=== PATIENT | female | born 1955 | race Caucasian/White ===

== ENCOUNTER 2017-02-08 14:17 | Outpatient (CLI) | payer MEDICARE, OTHER, SELFPAY ==
[2017-02-08 15:22] LABS: PHA INR Fingerstick 1.4 (0.9-1.1)
== END 2017-02-08 15:25 | disposition home or self-care (01) ==
LOC: ACC 14:21
PROVIDERS: PCP Internal Medicine Adolescent Medicine; Visit Provider Internal Medicine Adolescent Medicine
DX: Z79.01 Long term (current) use of anticoagulants (principal); Z51.81 Encounter for therapeutic drug level monitoring
CPT/HCPCS: 85610

== ENCOUNTER 2017-02-17 15:03 | Outpatient (CLI) | payer MEDICARE, OTHER, SELFPAY ==
[2017-02-17 16:13] LABS: PHA INR Fingerstick 2.5 (0.9-1.1)
== END 2017-02-17 16:31 | disposition home or self-care (01) ==
LOC: ACC 15:05
PROVIDERS: PCP Internal Medicine Adolescent Medicine; Visit Provider Internal Medicine Adolescent Medicine
DX: Z79.01 Long term (current) use of anticoagulants (principal); Z51.81 Encounter for therapeutic drug level monitoring
CPT/HCPCS: 85610

== ENCOUNTER 2017-02-28 14:44 | Outpatient (CLI) | payer MEDICARE, OTHER, SELFPAY ==
[2017-02-28 15:25] LABS: PHA INR Fingerstick 2.2 (0.9-1.1)
== END 2017-02-28 15:30 | disposition home or self-care (01) ==
PROVIDERS: Family Provider Internal Medicine Adolescent Medicine; PCP Internal Medicine Adolescent Medicine; Visit Provider Internal Medicine Adolescent Medicine
DX: Z79.01 Long term (current) use of anticoagulants (principal); Z51.81 Encounter for therapeutic drug level monitoring
CPT/HCPCS: 85610

== ENCOUNTER 2017-03-29 10:59 | Outpatient (CLI) | payer MEDICARE, OTHER, SELFPAY ==
[2017-03-29 13:01] LABS: PHA INR Fingerstick 2.4 (0.9-1.1)
== END 2017-03-29 13:25 | disposition home or self-care (01) ==
LOC: ACC 11:00
PROVIDERS: Family Provider Internal Medicine Adolescent Medicine; PCP Internal Medicine Adolescent Medicine; Visit Provider Internal Medicine Adolescent Medicine
DX: Z79.01 Long term (current) use of anticoagulants (principal); Z51.81 Encounter for therapeutic drug level monitoring; Z86.711 Personal history of pulmonary embolism
CPT/HCPCS: 85610; 99211; G0463

== ENCOUNTER → 2017-04-12 15:59 | Outpatient (CLI) | payer MEDICARE, OTHER, SELFPAY ==
[2017-04-12 16:48] LABS: Alanine Aminotransferase 29 U/L (12-78); Albumin Level 3.6 gm/dL (3.4-5.0); Albumin/Globulin Ratio 0.9 (1.1-1.8); Alkaline Phosphatase 103 U/L (46-116); Anion Gap 9.1 mEq/L (5-15); Aspartate Amino Transferase 13 U/L (15-37); Bilirubin,Total 0.2 mg/dL (0.2-1.0); Blood Urea Nitrogen 16 mg/dL (7-18); C-Reactive Protein 0.4 mg/L (0.0-0.9); Calcium 8.7 mg/dL (8.5-10.1); Carbon Dioxide 29 mmol/L (21.0-32.0); Chloride 103 mmol/L (98-107); Creatinine,Serum 0.93 mg/dL (0.55-1.02); Estimated Glomerular Filt Rate 61 ml/min (>60); GFR (African American) 74 ML/MIN (>60); Globulin 3.8 gm/dl (1.3-3.2); Glucose 105 mg/dL (74-106); Potassium 4.1 mmoL/L (3.5-5.1); Sodium 137 mmol/L (136-145); Thyroid Stimulating Hormone 1.57 uIU/ml (0.358-3.740); Total Protein,Serum 7.4 gm/dL (6.4-8.2)
[2017-04-12 17:15] LABS: Erythrocyte Sedimentation Rate 61 mm/hr (0-30)
[2017-04-16 18:35] LABS: RA Latex Turbid. <10.0 IU/mL (0.0-13.9)
[2017-04-19 06:05] LABS: Antinuclear Antibodies, IFA Negative (.)
[2017-04-19 06:06] LABS: Anti-Cyclic Citrullinated Pept 4 units (0-19)
== END ==
PROVIDERS: PCP Internal Medicine Adolescent Medicine; Visit Provider Nurse Practitioner Family
DX: Z00.00 Encounter for general adult medical examination without abnormal findings (principal); M12.9 Arthropathy, unspecified; R70.0 Elevated erythrocyte sedimentation rate; Z79.899 Other long term (current) drug therapy
CPT/HCPCS: 36415; 80053; 84443; 85651; 86038; 86140; 86200; 86431

== ENCOUNTER → 2017-04-19 14:08 | Outpatient (CLI) | payer MEDICARE, OTHER, SELFPAY ==
--- NOTE | 2017-04-19 14:13 | XR_ITS ---
XR wrist LT min 3V HISTORY: ITS.REASON: ARTHRITIS ORDERING PHYSICIAN: Sherif Ridley MD PATIENT AGE: 61 years COMPARISON: None FINDINGS: No fracture or dislocation. No lytic or blastic change. There is normal mineralization.. There is mild osteoarthritic change of the radiocarpal joint with slight decrease in the joint space and minimal osteophyte formation at the radial styloid process. Minimal osteoarthritic changes are also present at the scaphotrapezium joint. No erosive process. No soft tissue calcification. 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
--- NOTE | 2017-04-19 14:13 | XR_ITS ---
XR wrist RT min 3V HISTORY: ITS.REASON: ARTHRITIS ORDERING PHYSICIAN: Sherif Ridley MD PATIENT AGE: 61 years COMPARISON: None FINDINGS: No fracture or dislocation. No lytic or blastic change. There is normal mineralization.. The joint spaces are well-preserved. No significant degenerative/arthritic changes. No erosive changes evident.. IMPRESSION: Negative right wrist
--- NOTE | 2017-04-19 14:13 | XR_ITS ---
XR hand LT min 3V HISTORY: Left hand pain ITS.REASON: ARTHRITIS ORDERING PHYSICIAN: Sherif Ridley MD PATIENT AGE: 61 years COMPARISON: None FINDINGS: No fracture or dislocation. No lytic or blastic change. There is normal mineralization.. The joint spaces are well-preserved. Minimal osteoarthritic changes are present at the first interphalangeal joint as well as the DIP of the second and third digits. No erosive process and no abnormal soft tissue calcification. IMPRESSION: Minimal osteoarthritic change
--- NOTE | 2017-04-19 14:13 | XR_ITS ---
XR hand RT min 3V HISTORY: ITS.REASON: ARTHRITIS ORDERING PHYSICIAN: Sherif Ridley MD PATIENT AGE: 61 years COMPARISON: None FINDINGS: No fracture or dislocation. No lytic or blastic change. There is normal mineralization.. The joint spaces are well-preserved. Minimal osteoarthritic changes present at the first interphalangeal joint and the second and third DIP. No erosive process. Small periarticular calcification is present laterally at the PIP joint and medially at the DIP joint of the second digit. These could be related to old avulsion injuries. IMPRESSION: Minimal osteoarthritic change as described above
== END ==
PROVIDERS: PCP Internal Medicine Adolescent Medicine; Visit Provider Internal Medicine Adolescent Medicine
DX: M79.641 Pain in right hand (principal); M79.642 Pain in left hand; M25.532 Pain in left wrist; M25.531 Pain in right wrist
CPT/HCPCS: 73110; 73130

== ENCOUNTER 2017-04-25 14:32 | Outpatient (CLI) | payer MEDICARE, OTHER, SELFPAY ==
[2017-04-25 15:32] LABS: PHA INR Fingerstick 2.7 (0.9-1.1)
== END 2017-04-25 15:33 | disposition home or self-care (01) ==
LOC: ACC 14:33
PROVIDERS: PCP Internal Medicine Adolescent Medicine; Visit Provider Internal Medicine Adolescent Medicine
DX: Z79.01 Long term (current) use of anticoagulants (principal); Z51.81 Encounter for therapeutic drug level monitoring; Z86.711 Personal history of pulmonary embolism
CPT/HCPCS: 85610; 99211; G0463

== ENCOUNTER → 2017-08-29 08:48 | Outpatient (CLI) | payer MEDICARE, OTHER, SELFPAY ==
--- NOTE | 2017-08-29 08:49 | MM_ITS ---
MM Dig screening mamm BI w/CAD CAD Screening COMPARISON: Digital mammograms with CAD 10/07/2016 and post fine-needle aspiration left breast 11/16/2016 INDICATION: There is a history of breast cancer patient's aunt after menopause and cousin before menopause. There is been a previous mammotome biopsy left breast TECHNIQUE: Standard CC and MLO images were obtained. R2 CAD reviewed. FINDINGS: Moderate scattered fibroglandular densities are seen in the central portions of both breast. There is scattered arterial calcification in each breast. There are few benign-appearing calcifications BI-RADS each breast as well. There is no suspicious lesion and no suspicious microcalcifications. IMPRESSION: Fibrofatty parenchyma with no suspicious lesion seen BI-RADS Category: 2 Benign Finding(s) RECOMMENDED FOLLOW-UP: 1YR - 1 YEAR FOLLOW-UP (A letter has been sent to the patient regarding results of the study.)
--- NOTE | 2017-08-29 08:49 | XR_ITS ---
DEXA SCAN.-BONE DENSITY STUDY HIPS AND WRIST SAMPLING HISTORY: Postmenopausal female low calcium intake. Current smoker. . 61-year-old Fracture toe age 51 TECHNIQUE: DEXA scan HIPS AND WRIST SAMPLING The most complete data summary and color graphic presentation of the today's ( and any prior ) DEXA findings are available in PACS. Definition and treatment guidelines included. COMPARISON: June 2016 ====== Right WRIST. RadiusUD distal metaphysis: BMD 0.432 w/ Tscore = -0.8.; Age-matched Z score = 0.2 Distal 33% of radius: BMD 0.878 w/ Tscore= -0.1; Age-matched Z score = 0.9 Radius total: BMD 0.667. T score = -0.3.... Age-matched Z score = 0.7 2017 prior DEXA distal 3% radius BMD 0.858 w/ Tscore= -0.3.; Age-matched ; Z score = 0.5 Thus when comparing today's study to the prior exam there's been a 2.3% increase increasing mean bone density at the lumbar spine. ====== BILATERAL HIPS: Femoral neck density is best predictor of hip fracture risk . Right femoral neck demonstrates the lowest T score = 0.8 with BMD1.153 g/cm sq . Left femoral neck T score = 0.1; with BMD 1.045 Averaging all region included yields today's overall Hip Mean T score = 0.3 with BMD1.041 g/cm sq . 2017 DEXA overall hip T score -0.5 with BMD1.065 g/cm sq sq Thus this reflects a 2.3% decrease in overall mean bone density at the hips in the interval. IMPRESSION...... 1. HIPS: Normal bone density overall as well as at femoral necks bilaterally. 2. Wrist. Normal bone density at Distal third of the radius where T score -0.1 with BMD 0.878 With this reflects a 2.3% increase since previous 2017 study, compared to the same region. WHO criteria for post-menopausal, Women: Normal: T-score at or above -1 SD Osteopenia: T-score between -1 and -2.5 SD Osteoporosis: T-score at or below -2.5 SD
== END ==
PROVIDERS: Family Provider Internal Medicine Adolescent Medicine; PCP Internal Medicine Adolescent Medicine; Visit Provider Obstetrics & Gynecology
DX: Z12.31 Encounter for screening mammogram for malignant neoplasm of breast (principal); Z78.0 Asymptomatic menopausal state
CPT/HCPCS: 77067; 77080

== ENCOUNTER 2017-09-15 13:44 | Outpatient (CLI) | payer MEDICARE, OTHER, SELFPAY ==
[2017-09-15 15:27] LABS: PHA INR Fingerstick 3.2 (0.9-1.1)
== END 2017-09-15 15:33 | disposition home or self-care (01) ==
LOC: ACC 13:45
PROVIDERS: PCP Internal Medicine Adolescent Medicine; Visit Provider Internal Medicine Adolescent Medicine
DX: Z79.01 Long term (current) use of anticoagulants (principal); Z51.81 Encounter for therapeutic drug level monitoring; Z86.718 Personal history of other venous thrombosis and embolism
CPT/HCPCS: 85610; 99211; G0463

== ENCOUNTER → 2017-10-06 12:56 | Outpatient (CLI) | payer MEDICARE, OTHER, SELFPAY ==
[2017-10-06 13:44] LABS: INR 3.71 (0.9-1.1); Prothrombin Time 36.8 seconds (9.4-11.8)
[2017-10-06 14:09] LABS: Basophils % 0.5 % (0.1-2.0); Eosinophils # 0.3 K/mm3 (0.0-0.4); Eosinophils % 4.2 % (0.1-12.0); Hematocrit 38.3 % (37.0-47.0); Hemoglobin 12.3 g/dL (12.2-16.2); Lymphocytes % 27.4 K/mm3 (10-50); Mean Corpuscular HGB Conc 32.2 g/dL (31.8-35.4); Mean Corpuscular Hemoglobin 31.7 pg (27.0-31.2); Mean Corpuscular Volume 98.4 fl (81-99); Mean Platelet Volume 7.5 fl (7.4-10.4); Monocytes # 0.4 K/mm3 (0.1-1.0); Monocytes % 5.5 % (1.7-9.3); Neutrophils # 4.5 K/mm3 (1.8-7.8); Neutrophils % 62.3 % (37.0-80.0); Platelet Count 234 K/mm3 (142-424); Red Blood Count 3.89 M/mm3 (4.20-5.40); Red Cell Distribution Width 14.2 % (11.5-17.5); White Blood Count 7.2 K/mm3 (4.8-10.8)
[2017-10-06 14:19] LABS: Alanine Aminotransferase 30 U/L (12-78); Albumin Level 3.8 gm/dL (3.4-5.0); Albumin/Globulin Ratio 1.1 (1.1-1.8); Alkaline Phosphatase 105 U/L (46-116); Anion Gap 11.9 mEq/L (5-15); Aspartate Amino Transferase 16 U/L (15-37); Bilirubin,Total 0.3 mg/dL (0.2-1.0); Blood Urea Nitrogen 12 mg/dL (7-18); Calcium 8.8 mg/dL (8.5-10.1); Carbon Dioxide 29 mmol/L (21.0-32.0); Chloride 105 mmol/L (98-107); Chol/HDL Ratio 2.9 (1-3.5); Cholesterol 140 mg/dL (140-200); Creatinine,Serum 0.85 mg/dL (0.55-1.02); Estimated Glomerular Filt Rate 68 ml/min (>60); GFR (African American) 82 ML/MIN (>60); Globulin 3.6 gm/dl (1.3-3.2); Glucose 106 mg/dL (74-106); HDL Cholesterol 49 mg/dL (29-89); LDL Cholesterol 73 mg/dL (0-130); Potassium 3.9 mmoL/L (3.5-5.1); Sodium 142 mmol/L (136-145); Total Protein,Serum 7.4 gm/dL (6.4-8.2); Triglycerides 90 mg/dL (30-200); VLDL Cholesterol 18 mg/dL (0-40)
== END ==
PROVIDERS: PCP Internal Medicine Adolescent Medicine; Visit Provider Internal Medicine Adolescent Medicine
DX: Z79.01 Long term (current) use of anticoagulants (principal); Z86.711 Personal history of pulmonary embolism; E78.5 Hyperlipidemia, unspecified; M12.9 Arthropathy, unspecified; I10 Essential (primary) hypertension
CPT/HCPCS: 36415; 80053; 80061; 85025; 85610

== ENCOUNTER → 2017-10-19 15:16 | Outpatient (CLI) | payer MEDICARE, OTHER, SELFPAY ==
[2017-10-19 15:38] LABS: Prothrombin Time 26.1 seconds (9.4-11.8)
[2017-10-19 18:58] LABS: Thyroid Stimulating Hormone 1.17 uIU/ml (0.358-3.740)
[2017-10-24 05:18] LABS: Vitamin B12 518 pg/mL (232-1245); Vitamin D 25 Hydroxy 32.5 ng/mL (30.0-100.0)
== END ==
PROVIDERS: PCP Internal Medicine Adolescent Medicine; Visit Provider Nurse Practitioner Family
DX: Z51.81 Encounter for therapeutic drug level monitoring (principal); Z79.01 Long term (current) use of anticoagulants; Z86.718 Personal history of other venous thrombosis and embolism; R53.83 Other fatigue
CPT/HCPCS: 36415; 82607; 82652; 84443; 85610

== ENCOUNTER 2017-11-10 10:08 | Outpatient (CLI) | payer MEDICARE, OTHER, SELFPAY ==
[2017-11-10 14:53] LABS: PHA INR Fingerstick 2.7 (0.9-1.1)
== END 2017-11-10 14:55 | disposition home or self-care (01) ==
LOC: ACC 10:09
PROVIDERS: PCP Internal Medicine Adolescent Medicine; Visit Provider Internal Medicine Adolescent Medicine
DX: Z51.81 Encounter for therapeutic drug level monitoring (principal); Z79.01 Long term (current) use of anticoagulants; Z86.718 Personal history of other venous thrombosis and embolism
CPT/HCPCS: 85610; 99211; G0463

== ENCOUNTER 2017-12-09 09:56 | Outpatient (CLI) | payer MEDICARE, OTHER, SELFPAY ==
[2017-12-09 15:50] LABS: PHA INR Fingerstick 2.6 (0.9-1.1)
== END 2017-12-09 15:52 | disposition home or self-care (01) ==
LOC: ACC 09:57
PROVIDERS: PCP Internal Medicine Adolescent Medicine; Visit Provider Internal Medicine Adolescent Medicine
DX: Z51.81 Encounter for therapeutic drug level monitoring (principal); Z79.01 Long term (current) use of anticoagulants; Z86.718 Personal history of other venous thrombosis and embolism
CPT/HCPCS: 85610; 99211; G0463

== ENCOUNTER 2018-02-22 14:00 | Outpatient (CLI) | payer MEDICARE, OTHER, SELFPAY ==
[2018-02-22 15:25] LABS: PHA INR Fingerstick 3.1 (0.9-1.1)
== END 2018-02-22 15:27 | disposition home or self-care (01) ==
PROVIDERS: PCP Internal Medicine Adolescent Medicine; Visit Provider Internal Medicine Adolescent Medicine
DX: Z51.81 Encounter for therapeutic drug level monitoring (principal); Z79.01 Long term (current) use of anticoagulants
CPT/HCPCS: 85610; 99211; G0463

== ENCOUNTER → 2018-04-06 10:54 | Outpatient (CLI) | payer MEDICARE, OTHER, SELFPAY ==
[2018-04-06 11:12] LABS: Basophils % 0.4 % (0.1-2.0); Eosinophils # 0.2 K/mm3 (0.0-0.4); Eosinophils % 3.2 % (0.1-12.0); Hematocrit 40.4 % (37.0-47.0); Hemoglobin 12.9 g/dL (12.2-16.2); Lymphocytes # 1.3 K/mm3 (0.7-4.5); Lymphocytes % 20.5 % (10-50); Mean Corpuscular HGB Conc 31.9 g/dL (31.8-35.4); Mean Corpuscular Hemoglobin 31.4 pg (27.0-31.2); Mean Corpuscular Volume 98.4 fl (81-99); Mean Platelet Volume 8.6 fl (7.4-10.4); Monocytes # 0.3 K/mm3 (0.1-1.0); Monocytes % 4.9 % (1.7-9.3); Neutrophils # 4.5 K/mm3 (1.8-7.8); Platelet Count 193 K/mm3 (142-424); Red Blood Count 4.11 M/mm3 (4.20-5.40); Red Cell Distribution Width 15.6 % (11.5-17.5); White Blood Count 6.3 K/mm3 (4.8-10.8)
[2018-04-06 11:21] LABS: INR 4.93 (0.9-1.1); Prothrombin Time 48.5 seconds (9.4-11.8)
[2018-04-06 12:22] LABS: Alanine Aminotransferase 33 U/L (12-78); Albumin Level 3.5 gm/dL (3.4-5.0); Albumin/Globulin Ratio 0.9 (1.1-1.8); Alkaline Phosphatase 103 U/L (46-116); Anion Gap 17.8 mEq/L (5-15); Aspartate Amino Transferase 20 U/L (15-37); Bilirubin,Total 0.4 mg/dL (0.2-1.0); Blood Urea Nitrogen 17 mg/dL (7-18); Calcium 8.7 mg/dL (8.5-10.1); Carbon Dioxide 24 mmol/L (21.0-32.0); Chloride 103 mmol/L (98-107); Cholesterol 122 mg/dL (140-200); Estimated Glomerular Filt Rate 56 ml/min (>60); GFR (African American) 68 ML/MIN (>60); Globulin 3.9 gm/dl (1.3-3.2); Glucose 135 mg/dL (74-106); HDL Cholesterol 41 mg/dL (29-89); LDL Cholesterol 69 mg/dL (0-130); Potassium 3.8 mmoL/L (3.5-5.1); Sodium 141 mmol/L (136-145); Total Protein,Serum 7.4 gm/dL (6.4-8.2); Triglycerides 60 mg/dL (30-200); VLDL Cholesterol 12 mg/dL (0-40)
[2018-04-07 12:36] LABS: Vitamin D 25 Hydroxy 40.1 ng/mL (30.0-100.0)
== END ==
PROVIDERS: Visit Provider Nurse Practitioner Family
DX: Z00.00 Encounter for general adult medical examination without abnormal findings (principal); I10 Essential (primary) hypertension; E78.5 Hyperlipidemia, unspecified; E55.9 Vitamin D deficiency, unspecified; Z51.81 Encounter for therapeutic drug level monitoring; Z79.01 Long term (current) use of anticoagulants; Z86.718 Personal history of other venous thrombosis and embolism
CPT/HCPCS: 36415; 80053; 80061; 82652; 85025; 85610

== ENCOUNTER 2018-04-10 09:07 | Outpatient (CLI) | payer MEDICARE, OTHER, SELFPAY ==
[2018-04-10 11:35] LABS: PHA INR Fingerstick 1.8 (0.9-1.1)
== END 2018-04-10 11:44 | disposition home or self-care (01) ==
LOC: ACC 09:08
PROVIDERS: PCP Internal Medicine Adolescent Medicine; Visit Provider Internal Medicine Adolescent Medicine
DX: Z51.81 Encounter for therapeutic drug level monitoring (principal); Z79.01 Long term (current) use of anticoagulants; Z86.718 Personal history of other venous thrombosis and embolism
CPT/HCPCS: 85610; 99211; G0463

== ENCOUNTER 2018-04-17 09:03 | Outpatient (CLI) | payer MEDICARE, OTHER, SELFPAY ==
[2018-04-17 16:04] LABS: PHA INR Fingerstick 2.7 (0.9-1.1)
== END 2018-04-17 16:06 | disposition home or self-care (01) ==
LOC: ACC 09:04
PROVIDERS: PCP Internal Medicine Adolescent Medicine; Visit Provider Internal Medicine Adolescent Medicine
DX: Z51.81 Encounter for therapeutic drug level monitoring (principal); Z79.01 Long term (current) use of anticoagulants
CPT/HCPCS: 85610; 99211; G0463

== ENCOUNTER 2018-06-01 10:37 | Outpatient (CLI) | payer MEDICARE, OTHER, SELFPAY | END 2018-06-01 13:39 | disposition home or self-care (01) | LOC: ACC 10:38 | PROVIDERS: PCP Internal Medicine Adolescent Medicine; Visit Provider Internal Medicine Adolescent Medicine | DX: Z51.81 Encounter for therapeutic drug level monitoring (principal); Z79.01 Long term (current) use of anticoagulants; Z86.718 Personal history of other venous thrombosis and embolism | CPT/HCPCS: 85610; 99211; G0463 ==

== ENCOUNTER → 2018-06-15 10:54 | Outpatient (CLI) | payer MEDICARE, OTHER, SELFPAY ==
--- NOTE | 2018-06-15 10:56 | CA_ITS ---
PROCEDURE: 2-D M-mode and color Doppler study INDICATIONS FOR THE TEST: Chest pain X COPDX Heart Murmur Tobacco Smoking Palpitations FatigueX Syncope Edema Hypertension Diabetes Mellitus Rheumatic Fever SOBXDOE ObesityXHyperlipidemia Family History HD Additional History ABN EKG PATIENT INFORMATION HEIGHT: 64 WEIGHT:191 GENDER: Female B/P:146/87 2-D/M-MODE INTERPRETATION: 2-D MEASUREMENTS OBSERVED VALUES IN CMS Right Ventricular Dimension (RVDd) 2.2 Interventricular Septum (Thickness)(IVsd) 1.0 Left Ventricular Internal Dimensions(LVIDd) 5.4 Left Ventricular Posterior Wall (Thickness)(LVPWd) 1.0 Aortic Root 2.8 Aortic Cusp Separation 1.6 Left Atrial Dimensions (LAD) 3.9 2D 1. Left atrium is mildly enlarged, left ventricle is normal size, visually estimated ejection fraction of 55% with no regional wall motion abnormality. 2. The right atrium and right ventricle are normal size and contractility. 3. The aortic valve is minimally thickened and fibrosed. 4. The mitral and tricuspid valve leaflets are minimally thickened. 5. The pulmonic valve is poorly present. 6. No significant pericardial effusion noted. DOPPLER INTERROGATION: Doppler interrogation of the aortic, mitral and tricuspid valve reveals presence of mild mitral and tricuspid regurgitation, tricuspid regurgitation jet velocity is inadequate for calculation of the right ventricular systolic pressure, grade 1 diastolic dysfunction seen with tissue Doppler evidence of raised left atrial pressure. CONCLUSION: 1. Mildly enlarged left atrium, normal left ventricular size, visually estimated ejection fraction 55% with no regional wall motion abnormality, grade 1 diastolic dysfunction seen with tissue Doppler evidence of raised left atrial pressure. 2. Mild mitral and tricuspid regurgitation 3. No significant pericardial effusion noted.
--- NOTE | 2018-06-15 12:35 | NM_ITS ---
CARDIOLITE [facility]ESS: History: Chest pain, shortness of breath, fatigue,, family history. Procedure: Patient exercised on Adrian protocol 6 minutes and 40 seconds, resting heart rate was 70 beats prominent resting blood pressure is 150/85, with exercise maximum heart rate achieved was 1 30 bpm reportedly 82% of the maximum predicted heart rate and blood pressure was 210/84. Test was stopped due to shortness of breath and fatigue. Patient has adequate exercise capacity achieved 7mets of workload on treadmill, the blood pressure response to exercise was hypertensive. Patient did not achieve the target heart rate. Electrocardiogram: Resting electrocardiogram showed sinus rhythm, with exercise there is less than 1.[address] segment depression noted from the baseline EKG, occasional premature ventricular complexes were also seen. The EKG portion of the exercise Myoview is nondiagnostic as patient did not achieve the target heart rate. Cardiac stress and resting SPECT images: Cardiac stress and resting SPECT images were obtained using technetium 99 Myoview 31.6 mCi at stress and 10.2 mCi at rest. Gated SPECT further analysis of segmental wall motion and calculation of the ejection fraction also done. Cardiac stress and rest SPECT images show uniform myocardial activity without segmental perfusion abnormality, computer derived ejection fraction is over 65% with no regional wall motion abnormality. Right ventricle is normal size and contractility. Conclusion: 1. The EKG portion of the exercise Myoview is nondiagnostic as patient did not achieve the target heart rate, patient has adequate exercise capacity achieved 7mets of workload on treadmill, the blood pressure response to exercise was hypertensive, test was stopped due to shortness of breath. 2. No scintigraphic evidence of reversible ischemia seen at this level of exercise, either derived ejection fraction is over 65% with no regional wall motion abnormality, right ventricle is normal size and contractility.
--- NOTE | 2018-06-15 14:17 | HMH.ITSHM ---
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 [] cymbalta warfarin singulair prilosec tramadol asa simbicort
== END ==
PROVIDERS: PCP Internal Medicine Adolescent Medicine; Visit Provider Nurse Practitioner Family
DX: I25.10 Atherosclerotic heart disease of native coronary artery without angina pectoris (principal); R06.02 Shortness of breath; R07.9 Chest pain, unspecified; R53.83 Other fatigue; R94.31 Abnormal electrocardiogram [ECG] [EKG]
CPT/HCPCS: 78452; 93017; 93306; A9502

== ENCOUNTER → 2018-07-06 11:29 | Outpatient (CLI) | payer MEDICARE, OTHER, SELFPAY ==
[2018-07-06 13:08] LABS: PHA INR Fingerstick 2.6 (0.9-1.1)
== END ==
PROVIDERS: PCP Internal Medicine Adolescent Medicine; Visit Provider Internal Medicine Adolescent Medicine
DX: Z79.01 Long term (current) use of anticoagulants (principal); Z51.81 Encounter for therapeutic drug level monitoring; Z86.711 Personal history of pulmonary embolism
CPT/HCPCS: 85610

== ENCOUNTER → 2018-07-25 11:03 | Outpatient (POV) | payer MEDICARE, OTHER, SELFPAY | PROVIDERS: Visit Provider Dermatology | DX: Z00.00 Encounter for general adult medical examination without abnormal findings (principal) ==

== ENCOUNTER 2018-08-16 11:42 | Outpatient (CLI) | payer MEDICARE, OTHER, SELFPAY | END 2018-08-16 15:33 | disposition home or self-care (01) | LOC: ACC 11:43 | PROVIDERS: PCP Internal Medicine Adolescent Medicine; Visit Provider Internal Medicine Adolescent Medicine | DX: Z51.81 Encounter for therapeutic drug level monitoring (principal); Z79.01 Long term (current) use of anticoagulants; Z86.711 Personal history of pulmonary embolism | CPT/HCPCS: 85610; 99211; G0463 ==

== ENCOUNTER 2018-10-03 10:39 | Outpatient (CLI) | payer MEDICARE, OTHER, SELFPAY ==
[2018-10-03 11:33] LABS: PHA INR Fingerstick 2.8 (0.9-1.1)
== END 2018-10-03 11:38 | disposition home or self-care (01) ==
LOC: ACC 10:40
PROVIDERS: PCP Internal Medicine Adolescent Medicine; Visit Provider Internal Medicine Adolescent Medicine
DX: Z51.81 Encounter for therapeutic drug level monitoring (principal); Z79.01 Long term (current) use of anticoagulants; Z86.711 Personal history of pulmonary embolism
CPT/HCPCS: 85610; 99211; G0463

== ENCOUNTER 2018-10-16 13:24 | Outpatient (CLI) | payer MEDICARE, OTHER, SELFPAY ==
[2018-10-16 14:58] LABS: PHA INR Fingerstick 1.7 (0.9-1.1)
== END 2018-10-16 15:01 | disposition home or self-care (01) ==
LOC: ACC 13:25
PROVIDERS: PCP Internal Medicine Adolescent Medicine; Visit Provider Internal Medicine Adolescent Medicine
DX: Z51.81 Encounter for therapeutic drug level monitoring (principal); Z79.01 Long term (current) use of anticoagulants
CPT/HCPCS: 85610; 99211; G0463

== ENCOUNTER → 2018-10-27 07:40 | Outpatient (CLI) | payer MEDICARE, OTHER, SELFPAY ==
--- NOTE | 2018-10-27 07:44 | US_ITS ---
PROCEDURE: US ABDOMEN COMPLETE CLINICAL INDICATION: ABD PAIN COMPARISON: No exams were available for comparison FINDINGS: PANCREAS: Unremarkable. No obvious mass or abnormal fluid collection. Probable mild diffuse fatty infiltration. No ductal dilatation LIVER: The liver is normal in size and shows overall increased in somewhat coarsened appearing echogenicity consistent with diffuse fatty infiltration. There are no focal lesions. RIGHT KIDNEY: The right kidney measures 10.3 x 5.3 by 6.7 cm and appears sonographically normal. The left kidney measures 9.9 x 5.6 by 5.2 cm and appears sonographically normal. GALLBLADDER: Post cholecystectomy. The common bile duct measures 0.8 cm, borderline prominent but probably within normal limits considering previous cholecystectomy. There is no intrahepatic biliary ductal dilatation. AORTA: No evidence of aneurysmal dilatation. There is mild diffuse arteriosclerotic irregularity of the visualized portion of the aorta at the level of the xiphoid. SPLEEN: Unremarkable. Normal size and echogenicity ASCITES: None demonstrated. IMPRESSION: Mild to moderate diffuse hepatic steatosis, no other significant abnormality noted Dictated by: Dr. Carlos Bertrand MD 10/27/2018 10:[address] Carlos Bertrand MD in [place] 10/27/2018 10:50
== END ==
PROVIDERS: PCP Internal Medicine Adolescent Medicine; Visit Provider Nurse Practitioner Family
DX: R10.11 Right upper quadrant pain (principal)
CPT/HCPCS: 76700

== ENCOUNTER → 2018-11-08 12:59 | Outpatient (CLI) | payer MEDICARE, OTHER, SELFPAY ==
[2018-11-08 13:28] LABS: Basophils % 0.7 % (0.1-2.0); Eosinophils # 0.2 K/mm3 (0.0-0.4); Hematocrit 35.9 % (37.0-47.0); Lymphocytes # 1.5 K/mm3 (0.7-4.5); Lymphocytes % 26.6 % (10-50); Mean Corpuscular HGB Conc 30.8 g/dL (31.8-35.4); Mean Corpuscular Hemoglobin 29.6 pg (27.0-31.2); Monocytes # 0.3 K/mm3 (0.1-1.0); Monocytes % 5.6 % (1.7-9.3); Neutrophils # 3.7 K/mm3 (1.8-7.8); Neutrophils % 64.1 % (37.0-80.0); Platelet Count 254 K/mm3 (142-424); Red Blood Count 3.74 M/mm3 (4.20-5.40); Red Cell Distribution Width 16.2 % (11.5-17.5); White Blood Count 5.7 K/mm3 (4.8-10.8)
[2018-11-08 14:06] LABS: INR 4.01 (0.9-1.1)
[2018-11-08 15:02] LABS: Alanine Aminotransferase 21 U/L (12-78); Albumin Level 3.7 gm/dL (3.4-5.0); Albumin/Globulin Ratio 1.1 (1.1-1.8); Alkaline Phosphatase 93 U/L (46-116); Amylase 26 U/L (25-115); Anion Gap 17.1 mEq/L (5-15); Aspartate Amino Transferase 20 U/L (15-37); Bilirubin,Total 0.3 mg/dL (0.2-1.0); Blood Urea Nitrogen 11 mg/dL (7-18); Calcium 8.2 mg/dL (8.5-10.1); Carbon Dioxide 23 mmol/L (21.0-32.0); Chloride 104 mmol/L (98-107); Creatinine,Serum 0.82 mg/dL (0.55-1.02); Estimated Glomerular Filt Rate 71 ml/min (>60); GFR (African American) 85 ML/MIN (>60); Globulin 3.3 gm/dl (1.3-3.2); Glucose 96 mg/dL (74-106); Lipase 55 u/L (73-393); Potassium 4.1 mmoL/L (3.5-5.1); Sodium 140 mmol/L (136-145)
== END ==
PROVIDERS: Visit Provider Internal Medicine Adolescent Medicine
DX: R10.11 Right upper quadrant pain (principal); Z79.01 Long term (current) use of anticoagulants
CPT/HCPCS: 36415; 80053; 82150; 83690; 85025; 85610

== ENCOUNTER 2018-11-13 13:47 | Outpatient (CLI) | payer MEDICARE, OTHER, SELFPAY ==
[2018-11-13 14:24] LABS: PHA INR Fingerstick 2.6 (0.9-1.1)
== END 2018-11-13 14:25 | disposition home or self-care (01) ==
LOC: ACC 13:49
PROVIDERS: PCP Internal Medicine Adolescent Medicine; Visit Provider Internal Medicine Adolescent Medicine
DX: Z51.81 Encounter for therapeutic drug level monitoring (principal); Z79.01 Long term (current) use of anticoagulants
CPT/HCPCS: 85610; 99211; G0463

== ENCOUNTER 2018-11-24 13:13 | Outpatient (CLI) | payer MEDICARE, OTHER, SELFPAY ==
[2018-11-24 14:01] LABS: PHA INR Fingerstick 3.3 (0.9-1.1)
== END 2018-11-24 14:21 | disposition home or self-care (01) ==
LOC: ACC 13:15
PROVIDERS: PCP Internal Medicine Adolescent Medicine; Visit Provider Internal Medicine Adolescent Medicine
DX: Z51.81 Encounter for therapeutic drug level monitoring (principal); Z79.01 Long term (current) use of anticoagulants; Z86.711 Personal history of pulmonary embolism
CPT/HCPCS: 85610; 99211; G0463

== ENCOUNTER 2018-12-11 13:18 | Outpatient (CLI) | payer MEDICARE, OTHER, SELFPAY ==
[2018-12-11 13:47] LABS: PHA INR Fingerstick 2.2 (0.9-1.1)
== END 2018-12-11 13:52 | disposition home or self-care (01) ==
LOC: ACC 13:20
PROVIDERS: PCP Internal Medicine Adolescent Medicine; Visit Provider Internal Medicine Adolescent Medicine
DX: Z51.81 Encounter for therapeutic drug level monitoring (principal); Z79.01 Long term (current) use of anticoagulants; Z86.718 Personal history of other venous thrombosis and embolism
CPT/HCPCS: 85610; 99211; G0463

== ENCOUNTER 2018-12-19 11:04 | Outpatient (CLI) | payer MEDICARE, OTHER, SELFPAY ==
[2018-12-19 11:35] VITALS: BP 115/71; PULSE 68; RESP 18; TEMP 36.8; O2SAT 100
[2018-12-19 12:00] VITALS: BP 122/69; PULSE 65; RESP 18; TEMP 36.7; O2SAT 99
[2018-12-19 12:30] VITALS: BP 123/63; PULSE 64; RESP 16; TEMP 36.6; O2SAT 99
[2018-12-19 13:00] VITALS: BP 118/65; PULSE 70; RESP 18; O2SAT 100
[2018-12-19 13:35] VITALS: BP 120/68; PULSE 67; RESP 18; TEMP 36.7; O2SAT 100
== END 2018-12-19 13:35 | disposition home or self-care (01) ==
LOC: INF 11:04
PROVIDERS: Visit Provider Allergy & Immunology
DX: J45.50 Severe persistent asthma, uncomplicated (principal)
CPT/HCPCS: 96372; J2357

== ENCOUNTER → 2018-12-28 13:44 | Outpatient (CLI) | payer MEDICARE, OTHER, SELFPAY ==
[2019-01-03 07:34] LABS: M003-IgE Aspergillus fumigatus 0.98 kU/L (Class II)
[2019-01-03 09:10] LABS: Aspergillus fumigatus IgG Negative (Negative)
[2019-01-03 11:44] LABS: Pigeon Serum Abs Negative (Negative)
[2019-01-03 20:13] LABS: Aspergillus flavus Negative (Neg:<1:1); Aspergillus fumigatus Negative (Neg:<1:1)
[2019-01-04 21:13] LABS: Aspergillus niger Negative (Neg:<1:1)
== END ==
PROVIDERS: Visit Provider Nurse Practitioner
DX: J45.51 Severe persistent asthma with (acute) exacerbation (principal)
CPT/HCPCS: 36415; 86003; 86331; 86602; 86606; 86609

== ENCOUNTER 2019-01-02 11:09 | Outpatient (CLI) | payer MEDICARE, OTHER, SELFPAY ==
[2019-01-02 11:33] VITALS: BP 101/71; PULSE 73; RESP 18; TEMP 36.5; O2SAT 99
[2019-01-02 12:03] VITALS: BP 108/76; PULSE 78; RESP 18; O2SAT 98
[2019-01-02 12:33] VITALS: BP 111/66; PULSE 74; RESP 18; O2SAT 98
[2019-01-02 13:03] VITALS: BP 109/72; PULSE 76; RESP 18; O2SAT 97
[2019-01-02 13:33] VITALS: BP 118/65; PULSE 68; RESP 18; O2SAT 97
== END 2019-01-02 13:33 | disposition home or self-care (01) ==
LOC: INF 11:09
PROVIDERS: Visit Provider Allergy & Immunology
DX: J45.50 Severe persistent asthma, uncomplicated (principal)
CPT/HCPCS: 96372; J2357

== ENCOUNTER 2019-01-09 13:05 | Outpatient (CLI) | payer MEDICARE, OTHER, SELFPAY | END 2019-01-09 14:54 | disposition home or self-care (01) | LOC: ACC 13:06 | PROVIDERS: PCP Internal Medicine Adolescent Medicine; Visit Provider Surgery | DX: Z51.81 Encounter for therapeutic drug level monitoring (principal); Z79.01 Long term (current) use of anticoagulants | CPT/HCPCS: 85610; 99211; G0463 ==

== ENCOUNTER 2019-01-16 10:57 | Outpatient (CLI) | payer MEDICARE, OTHER, SELFPAY ==
[2019-01-16 11:26] VITALS: BP 136/78; PULSE 70; RESP 18; TEMP 36.4; O2SAT 98
[2019-01-16 11:55] VITALS: BP 127/75; PULSE 65; RESP 18; TEMP 36.6; O2SAT 99
[2019-01-16 12:25] VITALS: BP 130/79; PULSE 69; RESP 20; TEMP 36.7; O2SAT 97
[2019-01-16 12:55] VITALS: BP 136/82; PULSE 72; RESP 20; TEMP 36.6; O2SAT 98
[2019-01-16 13:30] VITALS: BP 129/74; PULSE 76; RESP 18; TEMP 36.6; O2SAT 98
--- NOTE | 2019-01-16 14:20 | PC.NURSE ---
01/16/19 1330 Patient discharged home/stable. Pt tolerated Xolair well with no problems and no s/s medication reaction noted. Pt monitored for 2 hours after receiving Xolair. Pt denies any c/o
== END 2019-01-16 13:30 | disposition home or self-care (01) ==
LOC: INF 10:57
PROVIDERS: Visit Provider Allergy & Immunology
DX: J45.50 Severe persistent asthma, uncomplicated (principal)
CPT/HCPCS: 96372; J2357

== ENCOUNTER 2019-01-29 11:15 | Outpatient (CLI) | payer MEDICARE, OTHER, SELFPAY ==
[2019-01-29 11:30] VITALS: BP 116/74; PULSE 71; RESP 18; TEMP 36.6; O2SAT 96
[2019-01-29 12:00] VITALS: BP 117/71; PULSE 75; RESP 18; TEMP 36.6; O2SAT 97
== END 2019-01-29 12:00 | disposition home or self-care (01) ==
LOC: INF 11:15
PROVIDERS: Visit Provider Allergy & Immunology
DX: J45.50 Severe persistent asthma, uncomplicated (principal)
CPT/HCPCS: 96372; J2357

== ENCOUNTER 2019-02-13 11:18 | Outpatient (CLI) | payer MEDICARE, OTHER, SELFPAY ==
[2019-02-13 11:37] VITALS: BP 131/77; PULSE 73; RESP 18; TEMP 36.4; O2SAT 99
[2019-02-13 12:00] VITALS: BP 127/69; PULSE 76; RESP 18; TEMP 36.5; O2SAT 98
== END 2019-02-13 12:00 | disposition home or self-care (01) ==
LOC: INF 11:18
PROVIDERS: Visit Provider Allergy & Immunology
DX: J45.50 Severe persistent asthma, uncomplicated (principal)
CPT/HCPCS: 96372; J2357

== ENCOUNTER 2019-02-16 13:04 | Outpatient (CLI) | payer MEDICARE, OTHER, SELFPAY ==
[2019-02-16 14:47] LABS: PHA INR Fingerstick 1.6 (0.9-1.1)
== END 2019-02-16 14:54 | disposition home or self-care (01) ==
LOC: ACC 13:05
PROVIDERS: PCP Internal Medicine Adolescent Medicine; Visit Provider Internal Medicine Adolescent Medicine
DX: Z51.81 Encounter for therapeutic drug level monitoring (principal); Z79.01 Long term (current) use of anticoagulants
CPT/HCPCS: 85610; 99211; G0463

== ENCOUNTER 2019-02-27 10:57 | Outpatient (CLI) | payer MEDICARE, OTHER, SELFPAY ==
[2019-02-27 11:20] LABS: PHA INR Fingerstick 1.9 (0.9-1.1)
[2019-02-27 11:55] VITALS: BP 128/68; PULSE 62; RESP 18; TEMP 36.6; O2SAT 100
[2019-02-27 12:10] VITALS: BP 122/69; PULSE 65; RESP 20; TEMP 36.6; O2SAT 99
== END 2019-02-27 12:15 | disposition home or self-care (01) ==
LOC: INF 10:58
PROVIDERS: PCP Internal Medicine Adolescent Medicine; Visit Provider Allergy & Immunology
DX: J45.50 Severe persistent asthma, uncomplicated (principal); Z51.81 Encounter for therapeutic drug level monitoring; Z79.01 Long term (current) use of anticoagulants
CPT/HCPCS: 85610; 96372; 99211; G0463; J2357

== ENCOUNTER 2019-03-13 11:01 | Outpatient (CLI) | payer MEDICARE, OTHER, SELFPAY ==
[2019-03-13 11:35] VITALS: BP 121/83; PULSE 75; RESP 18; O2SAT 100
== END 2019-03-13 11:35 | disposition home or self-care (01) ==
LOC: INF 11:01
PROVIDERS: Visit Provider Allergy & Immunology
DX: J45.50 Severe persistent asthma, uncomplicated (principal)
CPT/HCPCS: 96372; J2357

== ENCOUNTER 2019-03-29 11:15 | Outpatient (CLI) | payer MEDICARE, OTHER, SELFPAY ==
[2019-03-29 11:17] VITALS: BP 123/72; PULSE 66; RESP 18; TEMP 36.4; O2SAT 96
== END 2019-03-29 11:45 | disposition home or self-care (01) ==
LOC: INF 11:15
PROVIDERS: Visit Provider Nurse Practitioner
DX: J45.50 Severe persistent asthma, uncomplicated (principal)
CPT/HCPCS: 96372; J2357

== ENCOUNTER 2019-04-10 11:14 | Outpatient (CLI) | payer MEDICARE, OTHER, SELFPAY ==
[2019-04-10 11:43] VITALS: BP 102/59; PULSE 69; RESP 18; TEMP 36.4; O2SAT 100
[2019-04-10 11:55] VITALS: BP 110/64; PULSE 70; RESP 18; TEMP 36.6; O2SAT 99
== END 2019-04-10 11:58 | disposition home or self-care (01) ==
LOC: INF 11:14
PROVIDERS: Visit Provider Allergy & Immunology
DX: J45.50 Severe persistent asthma, uncomplicated (principal)
CPT/HCPCS: 96372; J2357

== ENCOUNTER 2019-04-24 13:59 | Outpatient (CLI) | payer MEDICARE, OTHER, SELFPAY ==
[2019-04-24 14:16] VITALS: BP 113/64; PULSE 74; RESP 18; TEMP 36.7; O2SAT 98
[2019-04-24 16:09] LABS: PHA INR Fingerstick 1.9 (0.9-1.1)
== END 2019-04-24 14:30 | disposition home or self-care (01) ==
PROVIDERS: PCP Internal Medicine Adolescent Medicine; Visit Provider Allergy & Immunology
DX: J45.50 Severe persistent asthma, uncomplicated (principal); Z51.81 Encounter for therapeutic drug level monitoring; Z79.01 Long term (current) use of anticoagulants; Z87.891 Personal history of nicotine dependence
CPT/HCPCS: 85610; 96372; 99211; G0463; J2357

== ENCOUNTER 2019-05-08 14:11 | Outpatient (CLI) | payer MEDICARE, OTHER, SELFPAY ==
[2019-05-08 14:35] VITALS: BP 101/64; PULSE 70; RESP 20; TEMP 36.9; O2SAT 99
== END 2019-05-08 14:35 | disposition home or self-care (01) ==
LOC: INF 14:11
PROVIDERS: Visit Provider Allergy & Immunology
DX: J45.50 Severe persistent asthma, uncomplicated (principal)
CPT/HCPCS: 96372; J2357

== ENCOUNTER 2019-05-22 13:24 | Outpatient (CLI) | payer MEDICARE, OTHER, SELFPAY ==
[2019-05-22 13:20] VITALS: BP 117/68; PULSE 61; RESP 20; TEMP 36.9; O2SAT 95
[2019-05-22 14:29] LABS: PHA INR Fingerstick 1.3 (0.9-1.1)
== END 2019-05-22 13:45 | disposition home or self-care (01) ==
PROVIDERS: PCP Internal Medicine Adolescent Medicine; Visit Provider Nurse Practitioner
DX: Z51.81 Encounter for therapeutic drug level monitoring (principal); Z79.01 Long term (current) use of anticoagulants; J45.50 Severe persistent asthma, uncomplicated
CPT/HCPCS: 85610; 96372; 99211; G0463; J2357

== ENCOUNTER 2019-06-05 12:49 | Outpatient (CLI) | payer MEDICARE, OTHER, SELFPAY ==
[2019-06-05 13:06] VITALS: BP 122/75; PULSE 77; RESP 18; TEMP 36.7; O2SAT 97
[2019-06-05 14:55] LABS: PHA INR Fingerstick 1.9 (0.9-1.1)
== END 2019-06-05 13:25 | disposition home or self-care (01) ==
PROVIDERS: PCP Internal Medicine Adolescent Medicine; Visit Provider Allergy & Immunology
DX: J45.50 Severe persistent asthma, uncomplicated (principal); Z51.81 Encounter for therapeutic drug level monitoring; Z79.01 Long term (current) use of anticoagulants
CPT/HCPCS: 85610; 96372; 99211; G0463; J2357

== ENCOUNTER 2019-06-19 13:14 | Outpatient (CLI) | payer MEDICARE, OTHER, SELFPAY ==
[2019-06-19 13:46] VITALS: BP 140/96; PULSE 69; RESP 20; TEMP 36.4; O2SAT 97
== END 2019-06-19 13:46 | disposition home or self-care (01) ==
LOC: INF 13:14
PROVIDERS: Visit Provider Allergy & Immunology
DX: J45.50 Severe persistent asthma, uncomplicated (principal)
CPT/HCPCS: 96372; J2357

== ENCOUNTER 2019-07-03 13:19 | Outpatient (CLI) | payer MEDICARE, OTHER, SELFPAY ==
[2019-07-03 13:15] VITALS: BP 125/95; PULSE 66; RESP 20; TEMP 36.9; O2SAT 95
[2019-07-03 16:11] LABS: PHA INR Fingerstick 1.8 (0.9-1.1)
== END 2019-07-03 13:45 | disposition home or self-care (01) ==
PROVIDERS: Internal Medicine Adolescent Medicine; Visit Provider Allergy & Immunology
DX: J45.50 Severe persistent asthma, uncomplicated (principal); Z51.81 Encounter for therapeutic drug level monitoring; Z79.01 Long term (current) use of anticoagulants
CPT/HCPCS: 85610; 96372; 99211; G0463; J2357

== ENCOUNTER 2019-07-17 13:01 | Outpatient (CLI) | payer MEDICARE, OTHER, SELFPAY ==
[2019-07-17 13:30] VITALS: BP 125/76; PULSE 76; RESP 18; TEMP 36.3
== END 2019-07-17 13:30 | disposition home or self-care (01) ==
LOC: INF 13:01
PROVIDERS: Visit Provider Allergy & Immunology
DX: Z86.711 Personal history of pulmonary embolism (principal)
CPT/HCPCS: 96372; J2357

== ENCOUNTER → 2019-07-26 14:39 | Outpatient (CLI) | payer MEDICARE, OTHER, SELFPAY ==
--- NOTE | 2019-07-26 14:40 | MM_ITS ---
PROCEDURE: MM DIG SCREENING MAMM BI W/CAD Digital Breast Tomosynthesis Included CLINICAL INDICATION: screening There is a history of breast cancer patient's aunt diagnosed after menopause and the patient's cousin diagnosed before menopause. There has been a previous biopsy left breast for benign disease. COMPARISON: DMSB DIG MAMM-SCREEN ENE W/CAD from 10/07/2016 DMDXUAVL DIG MAMM-DX UNI A/VWS-LT W/CAD from 10/26/2016 DMDXUL DIG MAMM-DX UNI-LT W/CAD from 11/16/2016 [facility] MM Dig screening mamm BI w/CAD from 08/29/2017 TECHNIQUE: Standard CC and MLO images and 3D Tomosynthesis was obtained. R2 CAD reviewed. FINDINGS: Moderate scattered fibroglandular densities are seen throughout both breast. There is mild arterial calcification in each breast. There are few benign-appearing microcalcifications in each breast. There is no suspicious lesion and no suspicious microcalcifications. IMPRESSION: Fibrofatty parenchyma with no suspicious lesions seen BI-RAD Category: 2 Benign Finding(s) FOLLOW-UP: 1YR 1 Year Follow-up (A letter has been sent to the patient regarding results of the study.) Dictated by: Dr. Carlos Bertrand MD 07/27/2019 12:[address] Carlos Bertrand MD in [place] 07/27/2019 12:04
--- NOTE | 2019-07-26 14:40 | XR_ITS ---
PROCEDURE: XR DEXA AXIAL SKELETON CLINICAL HISTORY: screening COMPARISON: No exams were available for comparison FINDINGS: Distal radius 1/3 density is 0.541 grams/centimeters sq with a T-score -2 point, osteoporosis Proximal left femur density 0.947 grams/centimeters sq with T-score of 0.0 Total right proximal femur density 0.930 grams/centimeters sq with T-score -0.1 IMPRESSION: Osteoporosis with high fracture risk. Treatment advised. Suggest follow-up exam in 1 year Dictated by: Oj Champagne MD 07/26/2019 15:31 Electronically signed by Oj Champagne MD in [place] 07/26/2019 15:31
== END ==
PROVIDERS: PCP Internal Medicine Adolescent Medicine; Visit Provider Internal Medicine Adolescent Medicine
DX: Z78.0 Asymptomatic menopausal state (principal); Z12.31 Encounter for screening mammogram for malignant neoplasm of breast
CPT/HCPCS: 77063; 77067; 77080

== ENCOUNTER → 2019-08-02 08:29 | Outpatient (CLI) | payer MEDICARE, OTHER, SELFPAY ==
[2019-08-02 09:00] LABS: Basophils # 0.1 K/mm3 (0-0.2); Basophils % 0.6 % (0.1-2.0); Eosinophils # 0.3 K/mm3 (0.0-0.4); Eosinophils % 3.4 % (0.1-12.0); Hematocrit 36.3 % (37.0-47.0); Hemoglobin 12.1 g/dL (12.2-16.2); Lymphocytes # 2.1 K/mm3 (0.7-4.5); Mean Corpuscular HGB Conc 33.3 g/dL (31.8-35.4); Mean Corpuscular Hemoglobin 30.9 pg (27.0-31.2); Mean Platelet Volume 7.4 fl (7.4-10.4); Monocytes # 0.3 K/mm3 (0.1-1.0); Monocytes % 4.4 % (1.7-9.3); Neutrophils % 64.5 % (37.0-80.0); Platelet Count 221 K/mm3 (142-424); Red Cell Distribution Width 16.6 % (11.5-17.5); White Blood Count 7.7 K/mm3 (4.8-10.8)
[2019-08-02 09:54] LABS: INR 1.75 (0.9-1.1); Prothrombin Time 17.4 seconds (9.4-11.8)
[2019-08-02 10:09] LABS: Chloride 108 mmol/L (98-107); Sodium 139 mmol/L (136-145)
[2019-08-02 10:12] LABS: Alanine Aminotransferase 21 U/L (12-78); Albumin Level 3.8 g/dl (3.5-5.0); Albumin/Globulin Ratio 1.2 (1.1-1.8); Alkaline Phosphatase 86 U/L (38-126); Aspartate Amino Transferase 24 U/L (14-36); Bilirubin,Total 0.5 mg/dl (0.2-1.3); Blood Urea Nitrogen 14 mg/dl (7-17); Carbon Dioxide 26 mmol/L (22.0-30.0); Cholesterol 125 mg/dl (140-200); Estimated Glomerular Filt Rate 73 ml/min (>60); GFR (African American) 88 ML/MIN (>60); Globulin 3.1 g/dL (1.3-3.2); Total Protein,Serum 6.9 g/dl (6.3-8.2); Triglycerides 52 mg/dl (30-150); VLDL Cholesterol 10 mg/dL (0-40)
[2019-08-02 10:13] LABS: Calcium 8.7 mg/dl (8.4-10.2); Chol/HDL Ratio 1.8 (1-3.5); Glucose 112 mg/dl (74-100); HDL Cholesterol 71 mg/dl (40-60)
[2019-08-02 10:23] LABS: Direct LDL Cholesterol 53.46 mg/dL (100-129)
[2019-08-02 10:44] LABS: PHA INR Fingerstick 1.8 (0.9-1.1)
== END ==
PROVIDERS: Nurse Practitioner Family; Visit Provider Internal Medicine Adolescent Medicine
DX: Z00.00 Encounter for general adult medical examination without abnormal findings (principal); I10 Essential (primary) hypertension; Z86.711 Personal history of pulmonary embolism; Z51.81 Encounter for therapeutic drug level monitoring; Z79.01 Long term (current) use of anticoagulants
CPT/HCPCS: 36415; 80053; 80061; 85025; 85610

== ENCOUNTER 2019-08-03 11:01 | Outpatient (CLI) | payer MEDICARE, OTHER, SELFPAY ==
[2019-08-03 11:01] VITALS: BP 136/80; PULSE 68; RESP 20; TEMP 36.9; O2SAT 96
--- NOTE | 2019-08-03 11:10 | PC.NURSE ---
given in both arms
[2019-08-03 11:20] VITALS: BP 125/74; PULSE 68; RESP 20; TEMP 36.9; O2SAT 95
== END 2019-08-03 11:20 | disposition home or self-care (01) ==
LOC: INF 11:01
PROVIDERS: Visit Provider Allergy & Immunology
DX: J45.50 Severe persistent asthma, uncomplicated (principal)
CPT/HCPCS: 96372; J2357

== ENCOUNTER 2019-08-14 12:35 | Outpatient (CLI) | payer MEDICARE, OTHER, SELFPAY ==
[2019-08-14 13:14] VITALS: BP 145/71; PULSE 71; RESP 18; TEMP 36.4; O2SAT 100
== END 2019-08-14 13:14 | disposition home or self-care (01) ==
LOC: INF 12:42
PROVIDERS: Visit Provider Allergy & Immunology
DX: J45.50 Severe persistent asthma, uncomplicated (principal)
CPT/HCPCS: 96372; J2357

== ENCOUNTER 2019-08-28 13:03 | Outpatient (CLI) | payer MEDICARE, OTHER, SELFPAY ==
[2019-08-28 13:30] VITALS: BP 118/68; PULSE 80; RESP 18; TEMP 36.4; O2SAT 98
[2019-08-28 13:45] VITALS: BP 122/69; PULSE 78; RESP 20; TEMP 36.4; O2SAT 98
== END 2019-08-28 13:48 | disposition home or self-care (01) ==
LOC: INF 13:03
PROVIDERS: Visit Provider Nurse Practitioner
DX: J45.50 Severe persistent asthma, uncomplicated (principal)
CPT/HCPCS: 96372; J2357

== ENCOUNTER 2019-09-11 12:48 | Outpatient (CLI) | payer MEDICARE, OTHER, SELFPAY ==
[2019-09-11 12:45] VITALS: BP 123/65; PULSE 75; RESP 18; TEMP 36.4; O2SAT 98
[2019-09-11 15:07] LABS: PHA INR Fingerstick 2.5 (0.9-1.1)
== END 2019-09-11 13:34 | disposition home or self-care (01) ==
LOC: INF 12:48
PROVIDERS: Internal Medicine Adolescent Medicine; Visit Provider Allergy & Immunology
DX: J45.50 Severe persistent asthma, uncomplicated (principal); Z51.81 Encounter for therapeutic drug level monitoring; Z79.01 Long term (current) use of anticoagulants
CPT/HCPCS: 85610; 96372; 99211; G0463; J2357

== ENCOUNTER 2019-09-25 12:55 | Outpatient (CLI) | payer MEDICARE, OTHER, SELFPAY ==
[2019-09-25 13:20] VITALS: BP 146/71; PULSE 65; RESP 20; TEMP 36.4; O2SAT 96
== END 2019-09-25 13:20 | disposition home or self-care (01) ==
LOC: INF 12:58
PROVIDERS: Visit Provider Nurse Practitioner
DX: J45.50 Severe persistent asthma, uncomplicated (principal)
CPT/HCPCS: 96372; J2357

== ENCOUNTER 2019-10-09 13:18 | Outpatient (CLI) | payer MEDICARE, OTHER, SELFPAY ==
[2019-10-09 13:32] VITALS: BP 109/72; PULSE 62; RESP 18; TEMP 36.3; O2SAT 98
[2019-10-09 13:55] VITALS: BP 112/74; PULSE 68; RESP 18; TEMP 36.4; O2SAT 97
== END 2019-10-09 13:55 | disposition home or self-care (01) ==
LOC: INF 13:18
PROVIDERS: Visit Provider Allergy & Immunology
DX: J45.50 Severe persistent asthma, uncomplicated (principal)
CPT/HCPCS: 96372; J2357

== ENCOUNTER 2019-10-23 11:59 | Outpatient (CLI) | payer MEDICARE, OTHER, SELFPAY ==
[2019-10-23 14:20] VITALS: BP 133/77; PULSE 76; RESP 20; TEMP 36.9; O2SAT 95
[2019-10-23 14:25] LABS: PHA INR Fingerstick 2.7 (0.9-1.1)
== END 2019-10-23 12:30 | disposition home or self-care (01) ==
PROVIDERS: PCP Internal Medicine Adolescent Medicine; Visit Provider Allergy & Immunology
DX: J45.50 Severe persistent asthma, uncomplicated (principal); Z51.81 Encounter for therapeutic drug level monitoring; Z79.01 Long term (current) use of anticoagulants
CPT/HCPCS: 85610; 96372; 99211; G0463; J2357

== ENCOUNTER 2019-11-06 12:54 | Outpatient (CLI) | payer MEDICARE, OTHER, SELFPAY ==
[2019-11-06 13:14] VITALS: BP 124/58; PULSE 68; RESP 18; TEMP 36.6; O2SAT 97
== END 2019-11-06 13:35 | disposition home or self-care (01) ==
LOC: INF 12:54
PROVIDERS: Visit Provider Allergy & Immunology
DX: J45.50 Severe persistent asthma, uncomplicated (principal)
CPT/HCPCS: 96372; J2357

== ENCOUNTER 2019-11-20 12:49 | Outpatient (CLI) | payer MEDICARE, OTHER, SELFPAY ==
[2019-11-20 13:20] VITALS: BP 140/81; PULSE 71; RESP 18; TEMP 36.3; O2SAT 100
== END 2019-11-20 13:35 | disposition home or self-care (01) ==
LOC: INF 12:49
PROVIDERS: Visit Provider Nurse Practitioner
DX: J45.50 Severe persistent asthma, uncomplicated (principal)
CPT/HCPCS: 96372; J2357

== ENCOUNTER 2019-11-25 12:48 | Emergency (ER) | payer MEDICARE, OTHER, SELFPAY ==
[2019-11-25 12:50] VITALS: BP 156/74; PULSE 73; RESP 20; TEMP 36.6; O2SAT 97; BMI 32.4
--- NOTE | 2019-11-25 13:21 | HMH.EDUTC ---
[facility] [place] Disposition Clinical Impression: UTI (urinary tract infection) Qualifiers: Urinary tract infection type: site unspecified Hematuria presence: with hematuria Qualified Code(s): N39.0 - Urinary tract infection, site not specified Disposition: Home, Self-Care Condition on Discharge: Good Instructions: Urinary Tract Infection, Ciprofloxacin Additional Instructions: Take half dose of your Warfarin on Tuesday and Tuesday and call Warfarin tomorrow (Tuesday) for further instructions and testing *Increase fluids. Water not Soda or Tea *Start antibiotic immediately and be sure to take as ordered for the FULL length of time although you should start to see improvement over the next 48 hours *Be SURE to follow up anytime for new or worsening symptoms with your family doctor. AND in 48 hours for urine culture results with your family doctor, if you do not have a doctor then you may call back to the [facility] for urine culture results and further treatment. We do recommend that you choose and establish care with a Primary Care Physician. AND follow up with them in 10-14 days to repeat UA to ensure infection is resolved and blood no longer present *Be sure to let your PCP know that we sent urine cultures from the [facility] so they can follow up to ensure that you area the on the correct antibiotic Call your doctor office and make appointment for 48 hours (2 days from today) to follow up and get the results of your urine culture and further treatment Follow up in Warfarin Clinic as advised Return if needed Straight to ER if any life threatening symptoms Prescriptions: Ciprofloxacin HCl [Cipro 250mg Tab] 250 mg PO BID #6 tab Transmission Status: Pending to [facility] Referrals: Sherif Ridley MD [Primary Care Provider] - As needed Time of Disposition: 13:41 Medical Decision Making - Oneal Inquiry Pt receiving controlled substance: No Oneal was queried for this patient: No Vital Signs: 11/25/19 12:50 Temperature 97.9 F Temperature Source Oral Pulse Rate [Radial] 73 Respiratory Rate 20 Blood Pressure [Right Arm] 156/74 H Blood Pressure Mean [Right Arm] 101 Blood Pressure Source [Right Arm] Automatic Cuff Blood Pressure Position [Right Arm] Sitting 02 Sat by Pulse Oximetry 97 Oxygen Delivery Method Room Air - Lab Data Lab results reviewed: Yes: I reviewed the patient's lab results. Medical Decision Narrative: Medication discussed with Telly from the Warfarin Clinic/Pharmacy and patient was place on Cipro 250mg BID and recommended cutting Warfarin dose in half for tomorrow and Tuesday and follow up in the Warfarin clinic [facility] [place] HPI - General Stated complaint: UTI Time Seen by Provider: 11/25/19 13:21 Mode of Arrival: Ambulatory Source of Information: Patient Limitations: No Limitations Description of Symptoms (Recalled from Triage Doc. by RN): possible uti HEENT Symptoms (Recalled from RN notes): No Resp Symptoms (Recalled from RN notes): No Skin Symptoms (Recalled from RN notes): No MS Symptoms (Recalled from RN notes): No Functional Status (Recalled from RN notes): wnl - History of Present Illness Provider Complaint: Patient states that she has frequent UTI States that she was recently seen and treated for UTI and dont feel like it completely cleared up States that she started having burning with urination and frequent urination last night States that today she woke up and was having some burning with urination so she come in to get checked - Related Data Home Medications Medication Instructions Recorded Confirmed Cholecalciferol (Vitamin D3) 4,000 unit PO DAILY 05/24/17 11/20/19 [Vitamin D3 1,000 Unit Cap] Duloxetine HCl [Cymbalta] 60 mg PO BID 05/24/17 11/20/19 Fluticasone Propionate [24 Hour 9.9 ml NS DAILY 05/24/17 11/20/19 Allergy] Montelukast Sodium [Singulair 10mg 10 mg PO PM 05/24/17 11/20/19 tablet] Tramadol HCl [Ultram] 50 mg PO BID 05/24/17 11/20/19 Warfarin Sodium 5 mg PO DAILY 07/29/17 1
[2019-11-25 13:53] LABS: Apearance,Urine Clear (Clear); Bilirubin,Urine Negative (Negative); Blood, Urine 2+ (Negative); Color,Urine Yellow (Yellow); Glucose,Urine (UA) Negative (Negative); Ketones,Urine Negative (Negative); PH,Urine 5.5 (5.0-8.5); Protein,Urine 1+ (Negative); Specific Gravity, Urine 1.015 (1.005-1.030); Urobilinogen,Urine 0.2 EU/dl (0.2)
[2019-11-25 13:54] VITALS: BP 156/74; PULSE 73; RESP 20; TEMP 36.6; O2SAT 97
[2019-11-25 13:54] LABS: UTC Leukocyte Esterase,Urine 2+ (Negative); UTC Nitrate,Urine Negative (Negative)
== END 2019-11-25 13:55 | disposition home or self-care (01) ==
PROVIDERS: Emergency Provider Nurse Practitioner; PCP Internal Medicine Adolescent Medicine
DX: N30.00 Acute cystitis without hematuria (principal); J44.9 Chronic obstructive pulmonary disease, unspecified; F33.1 Major depressive disorder, recurrent, moderate; K21.9 Gastro-esophageal reflux disease without esophagitis; E78.5 Hyperlipidemia, unspecified; I10 Essential (primary) hypertension; M79.7 Fibromyalgia; Z87.891 Personal history of nicotine dependence; Z88.2 Allergy status to sulfonamides; Z88.5 Allergy status to narcotic agent; Z88.1 Allergy status to other antibiotic agents
CPT/HCPCS: G0463; 81003; 99201

== ENCOUNTER 2019-11-29 12:14 | Outpatient (CLI) | payer MEDICARE, OTHER, SELFPAY ==
[2019-11-29 13:01] LABS: PHA INR Fingerstick 1.3 (0.9-1.1)
== END 2019-11-29 15:02 | disposition home or self-care (01) ==
LOC: ACC 12:16
PROVIDERS: PCP Internal Medicine Adolescent Medicine; Visit Provider Internal Medicine Adolescent Medicine
DX: Z51.81 Encounter for therapeutic drug level monitoring (principal); Z79.01 Long term (current) use of anticoagulants
CPT/HCPCS: 85610; 99211; G0463

== ENCOUNTER 2019-12-04 12:55 | Outpatient (CLI) | payer MEDICARE, OTHER, SELFPAY ==
[2019-12-04 13:08] VITALS: BP 132/87; PULSE 79; RESP 18; TEMP 36.6; O2SAT 100
[2019-12-04 13:20] VITALS: BP 128/79; PULSE 76; RESP 18; TEMP 36.6; O2SAT 99
== END 2019-12-04 13:20 | disposition home or self-care (01) ==
LOC: INF 12:55
PROVIDERS: PCP Internal Medicine Adolescent Medicine; Visit Provider Nurse Practitioner
DX: J45.50 Severe persistent asthma, uncomplicated (principal)
CPT/HCPCS: 96372; J2357

== ENCOUNTER 2019-12-18 13:01 | Outpatient (CLI) | payer MEDICARE, OTHER, SELFPAY ==
[2019-12-18 13:49] VITALS: BP 148/75; PULSE 79; RESP 20; TEMP 36.3; O2SAT 96
[2019-12-18 15:41] LABS: PHA INR Fingerstick 2.3 (0.9-1.1)
== END 2019-12-18 14:00 | disposition home or self-care (01) ==
LOC: INF 13:01
PROVIDERS: PCP Internal Medicine Adolescent Medicine; Visit Provider Allergy & Immunology
DX: J45.50 Severe persistent asthma, uncomplicated (principal); Z51.81 Encounter for therapeutic drug level monitoring; Z79.01 Long term (current) use of anticoagulants
CPT/HCPCS: 85610; 96372; 99211; G0463; J2357

== ENCOUNTER 2020-01-01 12:48 | Outpatient (CLI) | payer MEDICARE, OTHER, SELFPAY ==
[2020-01-01 13:05] VITALS: BP 135/74; PULSE 78; RESP 18; TEMP 36.4; O2SAT 98
== END 2020-01-01 13:15 | disposition home or self-care (01) ==
LOC: INF 12:48
PROVIDERS: Visit Provider Allergy & Immunology
DX: J45.50 Severe persistent asthma, uncomplicated (principal)
CPT/HCPCS: 96372; J2357

== ENCOUNTER 2020-01-15 13:12 | Outpatient (CLI) | payer MEDICARE, OTHER, SELFPAY ==
[2020-01-15 13:26] VITALS: BP 113/75; PULSE 94; RESP 18; TEMP 36.6; O2SAT 97
== END 2020-01-15 13:50 | disposition home or self-care (01) ==
LOC: INF 13:12
PROVIDERS: Visit Provider Allergy & Immunology
DX: J45.50 Severe persistent asthma, uncomplicated (principal)
CPT/HCPCS: 96372; J2357

== ENCOUNTER 2020-01-29 12:55 | Outpatient (CLI) | payer MEDICARE, OTHER, SELFPAY ==
[2020-01-29 13:22] VITALS: BP 122/64; PULSE 69; RESP 18; TEMP 36.6; O2SAT 97
== END 2020-01-29 13:40 | disposition home or self-care (01) ==
LOC: INF 12:58
PROVIDERS: PCP Internal Medicine Adolescent Medicine; Visit Provider Allergy & Immunology
DX: J45.50 Severe persistent asthma, uncomplicated (principal); Z51.81 Encounter for therapeutic drug level monitoring; Z79.01 Long term (current) use of anticoagulants
CPT/HCPCS: 85610; 96372; 99211; G0463; J2357

== ENCOUNTER 2020-02-12 09:09 | Outpatient (CLI) | payer MEDICARE, OTHER, SELFPAY ==
[2020-02-12 09:37] LABS: Basophils # 0.1 K/mm3 (0-0.2); Basophils % 0.7 % (0.1-2.0); Eosinophils # 0.3 K/mm3 (0.0-0.4); Eosinophils % 3.3 % (0.1-12.0); Hematocrit 40.5 % (37.0-47.0); Hemoglobin 13.5 g/dL (12.2-16.2); Lymphocytes # 1.9 K/mm3 (0.7-4.5); Lymphocytes % 19.7 % (10-50); Mean Corpuscular HGB Conc 33.3 g/dL (31.8-35.4); Mean Corpuscular Hemoglobin 31.3 pg (27.0-31.2); Mean Corpuscular Volume 94.2 fl (81-99); Mean Platelet Volume 7.5 fl (7.4-10.4); Monocytes # 0.5 K/mm3 (0.1-1.0); Monocytes % 4.7 % (1.7-9.3); Neutrophils % 71.6 % (37.0-80.0); Platelet Count 301 K/mm3 (142-424); Red Cell Distribution Width 16.2 % (11.5-17.5); White Blood Count 9.8 K/mm3 (4.8-10.8)
[2020-02-12 10:45] LABS: Alanine Aminotransferase 25 U/L (12-78); Albumin Level 4.2 g/dl (3.5-5.0); Albumin/Globulin Ratio 1.4 (1.1-1.8); Alkaline Phosphatase 104 U/L (38-126); Anion Gap 12.9 mEq/L (5-15); Aspartate Amino Transferase 24 U/L (14-36); Bilirubin,Total 0.6 mg/dl (0.2-1.3); Blood Urea Nitrogen 10 mg/dl (7-17); Calcium 9.5 mg/dl (8.4-10.2); Carbon Dioxide 24 mmol/L (22.0-30.0); Chloride 107 mmol/L (98-107); Chol/HDL Ratio 2.4 (1-3.5); Cholesterol 142 mg/dl (140-200); Estimated Glomerular Filt Rate 85 ml/min (>60); GFR (African American) 102 ML/MIN (>60); Glucose 133 mg/dl (74-100); HDL Cholesterol 59 mg/dl (40-60); Potassium 3.9 mmoL/L (3.5-5.1); Sodium 140 mmol/L (136-145); Total Protein,Serum 7.2 g/dl (6.3-8.2); Triglycerides 80 mg/dl (30-150); VLDL Cholesterol 16 mg/dL (0-40)
[2020-02-12 10:57] LABS: Direct LDL Cholesterol 70.59 mg/dL (100-129)
[2020-02-12 10:58] LABS: INR 1.79 (0.9-1.1); Prothrombin Time 18.8 seconds (9.4-11.8)
[2020-02-12 11:05] LABS: 25-OH Vitamin D, Total 28.2 ng/mL (30-100)
[2020-02-12 13:18] VITALS: BP 121/74; PULSE 77; RESP 18; TEMP 36.4; O2SAT 97
== END 2020-02-12 13:18 | disposition home or self-care (01) ==
LOC: INF 09:10
PROVIDERS: PCP Nurse Practitioner Family; Visit Provider Allergy & Immunology
DX: J45.50 Severe persistent asthma, uncomplicated (principal); I10 Essential (primary) hypertension; E78.5 Hyperlipidemia, unspecified; E55.9 Vitamin D deficiency, unspecified; Z51.81 Encounter for therapeutic drug level monitoring; Z79.01 Long term (current) use of anticoagulants; Z86.718 Personal history of other venous thrombosis and embolism
CPT/HCPCS: 36415; 80053; 80061; 82306; 85025; 85610; 96372; J2357

== ENCOUNTER 2020-02-26 13:11 | Outpatient (CLI) | payer MEDICARE, OTHER, SELFPAY ==
[2020-02-26 13:48] VITALS: BP 130/74; PULSE 78; RESP 18; TEMP 36.6; O2SAT 97
== END 2020-02-26 13:48 | disposition home or self-care (01) ==
LOC: INF 13:11
PROVIDERS: Visit Provider Allergy & Immunology
DX: J45.50 Severe persistent asthma, uncomplicated (principal)
CPT/HCPCS: 96372; J2357

== ENCOUNTER 2020-03-11 12:43 | Outpatient (CLI) | payer MEDICARE, OTHER, SELFPAY ==
[2020-03-11 13:03] VITALS: BP 134/74; PULSE 77; RESP 18; TEMP 36.7; O2SAT 98
== END 2020-03-11 13:20 | disposition home or self-care (01) ==
LOC: INF 12:43
PROVIDERS: Internal Medicine Adolescent Medicine; Visit Provider Allergy & Immunology
DX: J45.50 Severe persistent asthma, uncomplicated (principal); Z51.81 Encounter for therapeutic drug level monitoring; Z79.01 Long term (current) use of anticoagulants
CPT/HCPCS: 85610; 96372; 99211; G0463; J2357

== ENCOUNTER 2020-03-25 10:13 | Outpatient (CLI) | payer MEDICARE, OTHER, SELFPAY ==
[2020-03-25 10:30] VITALS: BP 127/69; PULSE 79; RESP 18; TEMP 36.6; O2SAT 96
== END 2020-03-25 10:45 | disposition home or self-care (01) ==
LOC: INF 10:13
PROVIDERS: Visit Provider Allergy & Immunology
DX: J45.50 Severe persistent asthma, uncomplicated (principal)
CPT/HCPCS: 96372; J2357

== ENCOUNTER 2020-04-08 13:04 | Outpatient (CLI) | payer MEDICARE, OTHER, SELFPAY ==
[2020-04-08 13:36] VITALS: BP 129/63; PULSE 82; RESP 18; TEMP 36.4; O2SAT 98
== END 2020-04-08 13:36 | disposition home or self-care (01) ==
LOC: INF 13:04
PROVIDERS: Visit Provider Allergy & Immunology
DX: J45.50 Severe persistent asthma, uncomplicated (principal)
CPT/HCPCS: 96372; J2357

== ENCOUNTER → 2020-04-16 15:24 | Outpatient (CLI) | payer MEDICARE, OTHER, SELFPAY ==
--- NOTE | 2020-04-16 | CA_ITS ---
APPROVED REPORT Left Lower Extremity Venous Study for DVT. Sommelier: CHAPINCITO Indications Lower Extremity Pain: Risk Factors Prior Phlebitis/DVT Medications Coumadin Findings Color flow duplex demonstrates no evidence of DVT of the following left lower extremity Veins:Common Femoral Vein, Femoral Vein, Popliteal Vein, Posterior Tibial Veins, Peroneal Veins. Color flow duplex demonstrates no evidence of SVT of the Small and Great Saphenous Veins. Negative for DVT. Conclusion Color flow duplex demonstrates no evidence of DVT of the following left lower extremity Veins:Common Femoral Vein, Femoral Vein, Popliteal Vein, Posterior Tibial Veins, Peroneal Veins. Color flow duplex demonstrates no evidence of SVT of the Small and Great Saphenous Veins. Negative for DVT. Electronically signed by : Oj Champagne MD 04/16/2020 18:28:26
== END ==
PROVIDERS: PCP Internal Medicine Adolescent Medicine; Visit Provider Internal Medicine Adolescent Medicine
DX: M79.662 Pain in left lower leg (principal); R60.0 Localized edema
CPT/HCPCS: 93971

== ENCOUNTER 2020-04-22 12:59 | Outpatient (CLI) | payer MEDICARE, OTHER, SELFPAY ==
[2020-04-22 13:25] VITALS: BP 125/74; PULSE 68; RESP 20; TEMP 36.9; O2SAT 95
[2020-04-22 13:51] LABS: PHA INR Fingerstick 2.3 (0.9-1.1)
== END 2020-04-22 13:25 | disposition home or self-care (01) ==
PROVIDERS: Internal Medicine Adolescent Medicine; Visit Provider Allergy & Immunology
DX: J45.50 Severe persistent asthma, uncomplicated (principal); Z51.81 Encounter for therapeutic drug level monitoring; Z79.01 Long term (current) use of anticoagulants
CPT/HCPCS: 85610; 96372; 99211; G0463; J2357

== ENCOUNTER → 2020-04-24 11:51 | Outpatient (CLI) | payer MEDICARE, OTHER, SELFPAY ==
--- NOTE | 2020-04-24 11:55 | XR_ITS ---
PROCEDURE: XR KNEE LT 3V CLINICAL INDICATION: ACUTE PAIN OF LT KNEE COMPARISON: CR KNEE3L KNEE-3 VIEWS-LT from 09/05/2012 CR KNEE3R KNEE-3 VIEWS-RT from 03/12/2015 CR KNEE3L KNEE-3 VIEWS-LT from 03/12/2015 FINDINGS: Moderate osteoarthritic change of the medial compartment not significantly changed. Mild osteoarthritis of the lateral compartment and patellofemoral joint. No fracture or dislocation. No lytic or blastic change. Nonspecific pretibial calcifications are present and may be due to phleboliths within varicosities. Other findings:None. IMPRESSION: Overall no change in the moderate osteoarthritis of the left knee Dictated by: Oj Champagne MD 04/24/2020 17:43 Oj Champagne MD in [place] 04/24/2020 17:43
== END ==
PROVIDERS: PCP Nurse Practitioner Family; Visit Provider Nurse Practitioner Family
DX: M25.562 Pain in left knee (principal)
CPT/HCPCS: 73562

== ENCOUNTER 2020-05-06 12:59 | Outpatient (CLI) | payer MEDICARE, OTHER, SELFPAY ==
[2020-05-06 13:19] VITALS: BP 104/74; PULSE 79; RESP 18; TEMP 36.6; O2SAT 97
== END 2020-05-06 13:45 | disposition home or self-care (01) ==
LOC: INF 12:59
PROVIDERS: Visit Provider Allergy & Immunology
DX: J45.50 Severe persistent asthma, uncomplicated (principal)
CPT/HCPCS: 96372; J2357

== ENCOUNTER 2020-05-20 13:11 | Outpatient (CLI) | payer MEDICARE, OTHER, SELFPAY ==
[2020-05-20 13:15] VITALS: BP 141/72; PULSE 69; RESP 20; TEMP 36.9; O2SAT 95
[2020-05-20 13:40] VITALS: BP 141/72; PULSE 68; RESP 20; TEMP 36.9; O2SAT 95
--- NOTE | 2020-05-20 15:54 | PC.NURSE ---
injection given in both arms
== END 2020-05-20 13:40 | disposition home or self-care (01) ==
LOC: INF 13:11
PROVIDERS: Visit Provider Allergy & Immunology
DX: J45.50 Severe persistent asthma, uncomplicated (principal)
CPT/HCPCS: 96372; J2357

== ENCOUNTER 2020-06-03 12:55 | Outpatient (CLI) | payer MEDICARE, OTHER, SELFPAY ==
[2020-06-03 13:05] VITALS: BP 125/73; PULSE 71; RESP 20; TEMP 36.9; O2SAT 95
[2020-06-03 13:45] LABS: PHA INR Fingerstick 2.1 (0.9-1.1)
== END 2020-06-03 13:24 | disposition home or self-care (01) ==
PROVIDERS: Internal Medicine Adolescent Medicine; Visit Provider Allergy & Immunology
DX: Z79.01 Long term (current) use of anticoagulants (principal); J45.50 Severe persistent asthma, uncomplicated
CPT/HCPCS: 85610; 96372; 99211; G0463; J2357

== ENCOUNTER 2020-06-09 11:15 | Emergency (ER) | payer MEDICARE, OTHER, SELFPAY ==
[2020-06-09 11:59] VITALS: BP 144/75; PULSE 69; RESP 18; TEMP 37.1; O2SAT 96; BMI 32.3
--- NOTE | 2020-06-09 12:00 | HMH.EDUTC ---
[facility] [place] Impression: Dental abscess, Jaw pain Disposition: Home, Self-Care Condition on Discharge: Good Instructions: Tooth Abscess, DI for Tooth Abscess Additional Instructions: You have to follow up with a dentist. Take the medication as directed. Follow up with your primary care doctor. GO TO THE ER FOR ANY WORSENING SYMPTOMS OR CONCERNS Prescriptions: clindamycin HCL [Clindamycin HCl] 300 mg PO Q8H 10 Days #30 cap Transmission Status: Received by [facility] Referrals: Sherif Ridley MD [Primary Care Provider] - Time of Disposition: 12:11 Medical Decision Making - Medical Records Medical records reviewed: No: I reviewed the patient's medical records. - Oneal Inquiry Pt receiving controlled substance: No Vital Signs: 06/09/20 11:59 06/09/20 12:43 Temperature 98.7 F 98 F Temperature Source Oral Pulse Rate 72 Pulse Rate [Right] 69 Respiratory Rate 18 16 Blood Pressure 132/84 Blood Pressure [Right Arm] 144/75 H Blood Pressure Mean [Right Arm] 98 Blood Pressure Source [Right Arm] Automatic Cuff Blood Pressure Position [Right Arm] Sitting 02 Sat by Pulse Oximetry 96 Oxygen Delivery Method Room Air [facility] [place] General Stated complaint: tooth pain, possible abcess Time Seen by Provider: 06/09/20 12:00 - History of Present Illness Provider Complaint: She states that for the past 1 week she has had worsening swelling and pain or her upper front gums. She has multiple decayed teeth. She has a dentist's appt, but she thinks that she needs antibiotics now. - Related Data Home Medications Medication Instructions Recorded Confirmed Cholecalciferol (Vitamin D3) 4,000 unit PO DAILY 05/24/17 05/20/20 [Vitamin D3 1,000 Unit Cap] Duloxetine HCl [Cymbalta] 60 mg PO BID 05/24/17 05/20/20 Fluticasone Propionate [24 Hour 9.9 ml NS DAILY 05/24/17 05/20/20 Allergy] Montelukast Sodium [Singulair 10mg 10 mg PO PM 05/24/17 05/20/20 tablet] Tramadol HCl [Ultram] 50 mg PO BID 05/24/17 05/20/20 Warfarin Sodium 5 mg PO DAILY 07/29/17 05/20/20 omeprazole magnesium 20 mg 20 mg PO HS 06/12/18 05/20/20 tablet,delayed release Aspirin [Aspirin 81mg EC Tab] 81 mg PO HS 12/19/18 05/20/20 Levocetirizine Dihydrochloride 5 mg PO HS 12/19/18 05/20/20 [Xyzal] Oxybutynin Chloride [Ditropan 5mg 5 mg PO TID 12/19/18 05/20/20 tablet] atorvastatin 20 mg tablet 40 mg PO DAILY tab 04/03/19 05/20/20 Albuterol Sulfate [Proair Hfa 2 puffs IH Q4HP PRN 04/10/19 05/20/20 90mcg/puff Inh] Alendronate Sodium [Fosamax 70mg 70 mg PO WEEKLY 08/14/19 05/20/20 Tablet] amitriptyline 25 mg tablet 50 mg PO HS tab 10/11/19 05/20/20 ropinirole 0.25 mg tablet 1 mg PO QHS tab 10/11/19 05/20/20 Fluticasone/Salmeterol [Advair 1 puff IH BID 03/25/20 05/20/20 500/50mcg diskus] magnesium 250 mg tablet 250 mg PO DAILY 04/30/20 05/20/20 Previous Rx's Medication Instructions Recorded Ondansetron [Zofran 4mg ODT] 4 mg PO Q8HP PRN #20 tab.rapdis 02/07/19 amlodipine 5 mg tablet 2.5 mg PO DAILY #30 tab 02/28/20 clindamycin HCL [Clindamycin HCl] 300 mg PO Q8H 10 Days #30 cap 06/09/20 Allergies Allergy/AdvReac Type Severity Reaction Status Date / Time Sulfa (Sulfonamide Allergy Severe Hives Verified 06/09/20 12:04 Antibiotics) adhesive Allergy Unknown S-BLISTERING Verified 06/09/20 12:04 DAVID amoxicillin [From Augmentin] Allergy Unknown Rash Verified 06/09/20 12:04 cefdinir Allergy Unknown I-RASH Verified 06/09/20 12:04 clarithromycin Allergy Unknown I-RASH Verified 06/09/20 12:04 clavulanic acid Allergy Unknown Rash Verified 06/09/20 12:04 codeine Allergy Unknown NA-NAUSEA/V Verified 06/09/20 12:04 OMITING latex Allergy Unknown S-BLISTERING Verified 06/09/20 12:04 DAVID sulfamethoxazole Allergy Unknown I-RASH,DIAR Verified 06/09/20 12:04 [From Bactrim] HEA trimethoprim [From Bactrim] Allergy Unknown I-RASH,DIAR Verified 06/09/20 12:04
[2020-06-09 12:43] VITALS: BP 132/84; PULSE 72; RESP 16; TEMP 36.6
== END 2020-06-09 12:43 | disposition home or self-care (01) ==
PROVIDERS: Emergency Provider Nurse Practitioner Family; PCP Internal Medicine Adolescent Medicine
DX: K04.7 Periapical abscess without sinus (principal); M79.7 Fibromyalgia; K21.9 Gastro-esophageal reflux disease without esophagitis; E78.5 Hyperlipidemia, unspecified; I10 Essential (primary) hypertension; Z91.048 Other nonmedicinal substance allergy status; Z88.2 Allergy status to sulfonamides; Z79.899 Other long term (current) drug therapy
CPT/HCPCS: G0463; 99202

== ENCOUNTER 2020-06-17 12:57 | Outpatient (CLI) | payer MEDICARE, OTHER, SELFPAY ==
[2020-06-17 13:36] VITALS: BP 101/57; PULSE 76; RESP 20; TEMP 36.4; O2SAT 97
== END 2020-06-17 13:50 | disposition home or self-care (01) ==
LOC: INF 12:57
PROVIDERS: Visit Provider Allergy & Immunology
DX: J45.50 Severe persistent asthma, uncomplicated (principal)
CPT/HCPCS: 96372; J2357

== ENCOUNTER 2020-07-01 13:11 | Outpatient (CLI) | payer MEDICARE, OTHER, SELFPAY ==
[2020-07-01 13:35] VITALS: BP 120/66; PULSE 78; RESP 18; TEMP 36.6; O2SAT 98
== END 2020-07-01 13:50 | disposition home or self-care (01) ==
LOC: INF 13:11
PROVIDERS: Visit Provider Allergy & Immunology
DX: J45.50 Severe persistent asthma, uncomplicated (principal)
CPT/HCPCS: 96372; J2357

== ENCOUNTER 2020-07-17 15:11 | Outpatient (CLI) | payer MEDICARE, OTHER, SELFPAY ==
[2020-07-17 15:21] VITALS: BP 133/77; PULSE 78; RESP 17; TEMP 36.8; O2SAT 97
== END 2020-07-17 15:22 | disposition home or self-care (01) ==
LOC: INF 15:11
PROVIDERS: PCP Internal Medicine Adolescent Medicine; Visit Provider Allergy & Immunology
DX: J45.50 Severe persistent asthma, uncomplicated (principal); Z51.81 Encounter for therapeutic drug level monitoring; Z79.01 Long term (current) use of anticoagulants
CPT/HCPCS: 85610; 96372; 99211; G0463; J2357

== ENCOUNTER → 2020-07-19 08:48 | Outpatient (CLI) | payer MEDICARE, SELFPAY ==
[2020-07-19 10:06] LABS: Basophils # 0.1 K/mm3 (0-0.2); Basophils % 0.6 % (0.1-2.0); Eosinophils # 0.3 K/mm3 (0.0-0.4); Eosinophils % 2.8 % (0.1-12.0); Hemoglobin 12.6 g/dL (12.2-16.2); Lymphocytes # 2.1 K/mm3 (0.7-4.5); Lymphocytes % 21.1 % (10-50); Mean Corpuscular Hemoglobin 30.7 pg (27.0-31.2); Mean Corpuscular Volume 93.1 fl (81-99); Mean Platelet Volume 7.5 fl (7.4-10.4); Monocytes # 0.5 K/mm3 (0.1-1.0); Monocytes % 4.5 % (1.7-9.3); Neutrophils # 7.1 K/mm3 (1.8-7.8); Neutrophils % 71.1 % (37.0-80.0); Platelet Count 230 K/mm3 (142-424); Red Blood Count 4.09 M/mm3 (4.20-5.40); Red Cell Distribution Width 15.8 % (11.5-17.5)
[2020-07-19 10:24] LABS: Prothrombin Time 14.2 seconds (10.1-12.5)
[2020-07-19 10:30] LABS: INR 1.22 (0.9-1.1)
[2020-07-19 11:24] LABS: Alanine Aminotransferase 20 U/L (12-78); Albumin Level 3.9 g/dl (3.5-5.0); Albumin/Globulin Ratio 1.4 (1.1-1.8); Alkaline Phosphatase 79 U/L (38-126); Anion Gap 10.2 mEq/L (5-15); Aspartate Amino Transferase 23 U/L (14-36); Bilirubin,Total 0.7 mg/dl (0.2-1.3); Blood Urea Nitrogen 14 mg/dl (7-17); Calcium 8.7 mg/dl (8.4-10.2); Carbon Dioxide 25 mmol/L (22.0-30.0); Chloride 109 mmol/L (98-107); Chol/HDL Ratio 2.1 (1-3.5); Cholesterol 136 mg/dl (140-200); Estimated Glomerular Filt Rate 85 ml/min (>60); GFR (African American) 102 ML/MIN (>60); Globulin 2.7 g/dL (1.3-3.2); Glucose 90 mg/dl (74-100); HDL Cholesterol 66 mg/dl (40-60); Potassium 4.2 mmoL/L (3.5-5.1); Sodium 140 mmol/L (136-145); Total Protein,Serum 6.6 g/dl (6.3-8.2); Triglycerides 48 mg/dl (30-150); VLDL Cholesterol 10 mg/dL (0-40)
[2020-07-19 11:35] LABS: Direct LDL Cholesterol 55.84 mg/dL (100-129)
== END ==
PROVIDERS: Visit Provider Nurse Practitioner Family
DX: I10 Essential (primary) hypertension (principal); E78.5 Hyperlipidemia, unspecified; Z86.718 Personal history of other venous thrombosis and embolism
CPT/HCPCS: 80053; 80061; 85025; 85610

== ENCOUNTER 2020-07-29 12:51 | Outpatient (CLI) | payer MEDICARE, OTHER, SELFPAY ==
[2020-07-29 13:15] VITALS: BP 123/75; PULSE 80; RESP 18; TEMP 36.6; O2SAT 98
== END 2020-07-29 13:35 | disposition home or self-care (01) ==
LOC: INF 12:51
PROVIDERS: Visit Provider Allergy & Immunology
DX: J45.50 Severe persistent asthma, uncomplicated (principal)
CPT/HCPCS: 96372; J2357

== ENCOUNTER 2020-08-12 12:15 | Outpatient (CLI) | payer MEDICARE, OTHER, SELFPAY ==
[2020-08-12 12:40] VITALS: BP 108/55; PULSE 78; RESP 18; TEMP 36.6; O2SAT 97
== END 2020-08-12 13:03 | disposition home or self-care (01) ==
LOC: INF 12:15
PROVIDERS: Visit Provider Allergy & Immunology
DX: J45.50 Severe persistent asthma, uncomplicated (principal)
CPT/HCPCS: 96372; J2357

== ENCOUNTER 2020-08-12 13:00 | Outpatient (RCR) | payer MEDICARE, OTHER, SELFPAY ==
--- NOTE | 2020-07-10 12:01 | HMH.OTOPEV ---
OT Inpatient Evaluation Rehab OT Outpatient Eval Start: 07/10/20 11:46 Freq: Status: Active Protocol: Document 07/10/20 11:46 HAYDEEMARY (Rec: 07/10/20 12:01 CLEMENTINELOUIE [id number]) Electronically Signed By Elina Garcia OT 07/10/20 11:46 Outpatient Therapy Subjective History Subjective History 64 year old female referred to skilled OP OT services for L hand arthritis resulting in consistent pain during everyday functional tasks. Patient exhibit AROM of L wrist and digits WFL however verbalize pain during movements. Patient has been having pain in the L hand consistently for the past 6 months with little relief. Patient verablize wearing L wrist cock-up splint with thumb support to decrease pain levels. Chief Complaint Pain,Weakness,Decreased Spool Fixer Strength Symptom Type Ache,Throb,Tingling Symptoms Relieved By Brace/Support Symptoms Aggravated By Physical Activity Prior Functional Limitations None Current Functional Limitations Reaching,Lifting,Recreation Activity Symptom Description Constant and Continuous Level of pain today (0-10) 2 Pain scale - at its best (0-10) 2 Pain scale - at its worst (0-10) 9 Wrist/Hand Eval Wrist Range of Motion Left Wrist Extension Active Range of Motion ( 70 degrees) Wrist Flexion Active Range of Motion ( 70 degrees) Wrist Radial Deviation Active Range of 20 Motion (degrees) Wrist Ulnar Deviation Active Range of 30 Motion (degrees) Forearm Supination Active Range of 90 Motion (degrees) Forearm Pronation Active Range of Motion 90 (degrees) Spool Fixer/Pinch Strength Right Spool Fixer Strength Measurement (lbs) 65 Left Spool Fixer Strength Measurement (lbs) 35 OT Outpatient Assessment Impairments Problems/Impairments Impaired Range of Motion, Impaired Strength,Impaired Endurance,Subjective C/O Pain Prognosis Rehab Potential Good Clinical Impression Consistent with Diagnosis Yes Short Term Goals Number of Weeks 2 Increase Strength Yes: L card boxer strength: 45# Decrease Subjective C/O Pain Yes: 07/17 pain at worst Patient to be Ind w/ Advanced HEP
== END 2020-08-12 13:05 | disposition home or self-care (01) ==
LOC: OT 13:00
PROVIDERS: PCP Internal Medicine Adolescent Medicine; Visit Provider Nurse Practitioner Family
DX: M19.042 Primary osteoarthritis, left hand (principal)
CPT/HCPCS: 97014; 97018; 97110; 97140; 97164; 97165; 97530; G0283

== ENCOUNTER 2020-08-26 12:00 | Outpatient (CLI) | payer MEDICARE, OTHER, SELFPAY ==
[2020-08-26 12:30] VITALS: BP 121/66; PULSE 75; RESP 18; TEMP 36.4; O2SAT 98
[2020-08-26 15:55] LABS: PHA INR Fingerstick 1.7 (0.9-1.1)
== END 2020-08-26 12:45 | disposition home or self-care (01) ==
LOC: INF 12:03
PROVIDERS: Internal Medicine Adolescent Medicine; Visit Provider Allergy & Immunology
DX: J45.50 Severe persistent asthma, uncomplicated (principal); Z51.81 Encounter for therapeutic drug level monitoring; Z79.01 Long term (current) use of anticoagulants
CPT/HCPCS: 85610; 96372; 99211; G0463; J2357

== ENCOUNTER → 2020-09-03 16:42 | Outpatient (CLI) | payer MEDICARE, SELFPAY | PROVIDERS: Visit Provider Nurse Practitioner Family | DX: R30.0 Dysuria (principal) | CPT/HCPCS: 87086; 87088; 87186 ==

== ENCOUNTER 2020-09-09 12:05 | Outpatient (CLI) | payer MEDICARE, OTHER, SELFPAY ==
[2020-09-09 12:45] VITALS: BP 142/77; PULSE 81; RESP 17; TEMP 36.6; O2SAT 97
== END 2020-09-09 12:47 | disposition home or self-care (01) ==
LOC: INF 12:09
PROVIDERS: Visit Provider Allergy & Immunology
DX: J45.50 Severe persistent asthma, uncomplicated (principal)
CPT/HCPCS: 96372; J2357

== ENCOUNTER 2020-09-23 12:12 | Outpatient (CLI) | payer MEDICARE, OTHER, SELFPAY ==
[2020-09-23 12:30] VITALS: BP 113/67; BP 115/68; PULSE 68; PULSE 69; RESP 20; TEMP 36.9; O2SAT 95; O2SAT 98
--- NOTE | 2020-09-23 15:45 | PC.NURSE ---
INJECTION IN BOTH ARMS
[2020-09-23 16:29] LABS: PHA INR Fingerstick 2.3 (0.9-1.1)
== END 2020-09-23 12:35 | disposition home or self-care (01) ==
LOC: INF 12:12
PROVIDERS: Internal Medicine Adolescent Medicine; Visit Provider Allergy & Immunology
DX: J45.50 Severe persistent asthma, uncomplicated (principal); Z51.81 Encounter for therapeutic drug level monitoring; Z79.01 Long term (current) use of anticoagulants; Z87.891 Personal history of nicotine dependence
CPT/HCPCS: 85610; 96372; 99211; G0463; J2357

== ENCOUNTER 2020-10-07 12:01 | Outpatient (CLI) | payer MEDICARE, OTHER, SELFPAY ==
[2020-10-07 12:26] VITALS: BP 118/70; PULSE 74; RESP 18; TEMP 36.4; O2SAT 96
== END 2020-10-07 12:42 | disposition home or self-care (01) ==
LOC: INF 12:03
PROVIDERS: PCP Internal Medicine Adolescent Medicine; Visit Provider Allergy & Immunology
DX: J45.50 Severe persistent asthma, uncomplicated (principal)
CPT/HCPCS: 96372; J2357

== ENCOUNTER → 2020-10-22 12:15 | Outpatient (CLI) | payer MEDICARE, OTHER, SELFPAY ==
[2020-10-22 12:35] VITALS: BP 126/95; PULSE 83; RESP 20; O2SAT 95
[2020-10-22 12:40] VITALS: BP 126/65; PULSE 83; RESP 18; O2SAT 95
== END ==
PROVIDERS: PCP Internal Medicine Adolescent Medicine; Visit Provider Allergy & Immunology
DX: J45.50 Severe persistent asthma, uncomplicated (principal)
CPT/HCPCS: 96372; J2357

== ENCOUNTER 2020-11-04 11:59 | Outpatient (CLI) | payer MEDICARE, OTHER, SELFPAY ==
[2020-11-04 12:34] VITALS: BP 127/74; PULSE 78; RESP 17; TEMP 36.7; O2SAT 97
[2020-11-04 14:53] LABS: PHA INR Fingerstick 2.2 (0.9-1.1)
== END 2020-11-04 12:35 | disposition home or self-care (01) ==
LOC: INF 12:00
PROVIDERS: PCP Internal Medicine Adolescent Medicine; Visit Provider Allergy & Immunology
DX: J45.50 Severe persistent asthma, uncomplicated (principal); Z51.81 Encounter for therapeutic drug level monitoring; Z79.01 Long term (current) use of anticoagulants
CPT/HCPCS: 85610; 96372; J2357

== ENCOUNTER 2020-11-18 11:54 | Outpatient (CLI) | payer MEDICARE, OTHER, SELFPAY ==
[2020-11-18 12:40] VITALS: BP 146/78; PULSE 90; RESP 20; O2SAT 98
== END 2020-11-18 12:40 | disposition home or self-care (01) ==
LOC: INF 11:55
PROVIDERS: PCP Internal Medicine Adolescent Medicine; Visit Provider Allergy & Immunology
DX: J45.50 Severe persistent asthma, uncomplicated (principal)
CPT/HCPCS: 96372; J2357

== ENCOUNTER 2020-12-02 12:17 | Outpatient (CLI) | payer MEDICARE, OTHER, SELFPAY ==
[2020-12-02 13:18] VITALS: BP 132/70; PULSE 71; RESP 18; TEMP 36.2; O2SAT 99
== END 2020-12-02 13:18 | disposition home or self-care (01) ==
LOC: INF 12:18
PROVIDERS: PCP Internal Medicine Adolescent Medicine; Visit Provider Allergy & Immunology
DX: J45.50 Severe persistent asthma, uncomplicated (principal); B96.20 Unspecified Escherichia coli [E. coli] as the cause of diseases classified elsewhere; R82.90 Unspecified abnormal findings in urine
CPT/HCPCS: 87086; 87088; 87186; 96372; J2357

== ENCOUNTER → 2020-12-02 16:12 | Outpatient (CLI) | payer MEDICARE, OTHER, SELFPAY | PROVIDERS: Visit Provider Nurse Practitioner Family | DX: R30.0 Dysuria (principal); B96.20 Unspecified Escherichia coli [E. coli] as the cause of diseases classified elsewhere | CPT/HCPCS: 87086; 87088; 87186 ==

== ENCOUNTER 2020-12-16 13:09 | Outpatient (CLI) | payer MEDICARE, OTHER, SELFPAY ==
[2020-12-16 14:10] VITALS: BP 124/76; PULSE 74; RESP 18; TEMP 36.4; O2SAT 97
== END 2020-12-16 14:25 | disposition home or self-care (01) ==
LOC: INF 13:11
PROVIDERS: PCP Internal Medicine Adolescent Medicine; Visit Provider Allergy & Immunology
DX: J45.50 Severe persistent asthma, uncomplicated (principal); Z51.81 Encounter for therapeutic drug level monitoring; Z79.01 Long term (current) use of anticoagulants
CPT/HCPCS: 85610; 96372; 99211; G0463; J2357

== ENCOUNTER 2020-12-16 13:12 | Outpatient (CLI) | payer MEDICARE, OTHER, SELFPAY ==
[2020-12-16 15:12] LABS: PHA INR Fingerstick 2.9 (0.9-1.1)
== END 2020-12-16 15:13 | disposition home or self-care (01) ==
LOC: ACC 13:13
PROVIDERS: PCP Internal Medicine Adolescent Medicine; Visit Provider Internal Medicine Adolescent Medicine
DX: Z79.01 Long term (current) use of anticoagulants (principal)
CPT/HCPCS: 85610; 99211; G0463

== ENCOUNTER 2021-01-23 13:18 | Outpatient (CLI) | payer MEDICARE, OTHER, SELFPAY ==
[2021-01-23 13:52] VITALS: BP 115/58; PULSE 67; RESP 18; O2SAT 96
[2021-01-23 15:44] LABS: PHA INR Fingerstick 2.7 (0.9-1.1)
== END 2021-01-23 14:20 | disposition home or self-care (01) ==
LOC: INF 13:19
PROVIDERS: PCP Internal Medicine Adolescent Medicine; Visit Provider Allergy & Immunology
DX: Z79.01 Long term (current) use of anticoagulants (principal); Z51.81 Encounter for therapeutic drug level monitoring; J45.50 Severe persistent asthma, uncomplicated
CPT/HCPCS: 85610; 96372; 99211; G0463; J2357

== ENCOUNTER 2021-02-05 13:05 | Outpatient (CLI) | payer MEDICARE, OTHER, SELFPAY ==
[2021-02-05 13:15] VITALS: BP 91/54; PULSE 54; RESP 20; TEMP 36.4; O2SAT 97
== END 2021-02-05 13:40 | disposition home or self-care (01) ==
LOC: INF 13:06
PROVIDERS: PCP Internal Medicine Adolescent Medicine; Visit Provider Allergy & Immunology
DX: J45.50 Severe persistent asthma, uncomplicated (principal)
CPT/HCPCS: 96372; J2357

== ENCOUNTER 2021-02-17 14:03 | Outpatient (CLI) | payer MEDICARE, OTHER, SELFPAY | END 2021-02-17 14:19 | disposition home or self-care (01) | LOC: INF 14:05 | PROVIDERS: PCP Internal Medicine Adolescent Medicine; Visit Provider Allergy & Immunology | DX: J45.50 Severe persistent asthma, uncomplicated (principal) | CPT/HCPCS: 96372; J2357 ==

== ENCOUNTER 2021-03-03 14:25 | Outpatient (CLI) | payer MEDICARE, OTHER, SELFPAY ==
[2021-03-03 14:40] VITALS: BP 117/56; PULSE 72; RESP 18; TEMP 36.4; O2SAT 96
== END 2021-03-03 14:57 | disposition home or self-care (01) ==
LOC: INF 14:27
PROVIDERS: PCP Internal Medicine Adolescent Medicine; Visit Provider Allergy & Immunology
DX: J45.50 Severe persistent asthma, uncomplicated (principal)
CPT/HCPCS: 96372; J2357

== ENCOUNTER 2021-03-17 13:06 | Outpatient (CLI) | payer MEDICARE, OTHER, SELFPAY ==
[2021-03-17 13:16] VITALS: BP 123/70; PULSE 75; RESP 18; TEMP 36.6; O2SAT 98
== END 2021-03-17 13:30 | disposition home or self-care (01) ==
LOC: INF 13:07
PROVIDERS: PCP Internal Medicine Adolescent Medicine; Visit Provider Allergy & Immunology
DX: J45.50 Severe persistent asthma, uncomplicated (principal)
CPT/HCPCS: 96372; J2357

== ENCOUNTER → 2021-03-19 08:15 | Outpatient (CLI) | payer MEDICARE, OTHER, SELFPAY ==
[2021-03-19 08:58] LABS: Basophils # 0.1 K/mm3 (0-0.2); Basophils % 1.1 % (0.1-2.0); Eosinophils # 0.4 K/mm3 (0.0-0.4); Eosinophils % 4.8 % (0.1-12.0); Hematocrit 39.1 % (37.0-47.0); Hemoglobin 12.7 g/dL (12.2-16.2); Lymphocytes # 1.8 K/mm3 (0.7-4.5); Lymphocytes % 21.7 % (10-50); Mean Corpuscular HGB Conc 32.3 g/dL (31.8-35.4); Mean Corpuscular Hemoglobin 31.9 pg (27.0-31.2); Mean Corpuscular Volume 98.8 fl (81-99); Mean Platelet Volume 7.7 fl (7.4-10.4); Monocytes # 0.4 K/mm3 (0.1-1.0); Monocytes % 5.1 % (1.7-9.3); Neutrophils # 5.6 K/mm3 (1.8-7.8); Neutrophils % 67.3 % (37.0-80.0); Platelet Count 282 K/mm3 (142-424); Red Blood Count 3.96 M/mm3 (4.20-5.40); Red Cell Distribution Width 15.4 % (11.5-17.5); White Blood Count 8.3 K/mm3 (4.8-10.8)
[2021-03-19 09:04] LABS: INR 3.41 (0.9-1.1); Prothrombin Time 35.2 seconds (10.1-12.5)
[2021-03-19 09:21] LABS: Erythrocyte Sedimentation Rate 31 mm/hr (0-30)
[2021-03-19 09:58] LABS: Chloride 107 mmol/L (98-107)
[2021-03-19 09:59] LABS: Potassium 4.3 mmoL/L (3.5-5.1); Sodium 137 mmol/L (136-145)
[2021-03-19 10:01] LABS: Alanine Aminotransferase 19 U/L (12-78); Anion Gap 7.3 mEq/L (5-15); Aspartate Amino Transferase 24 U/L (14-36); Blood Urea Nitrogen 13 mg/dl (7-17); Carbon Dioxide 27 mmol/L (22.0-30.0); Estimated Glomerular Filt Rate 72 ml/min (>60); GFR (African American) 87 ML/MIN (>60)
[2021-03-19 10:02] LABS: Albumin Level 4.1 g/dl (3.5-5.0); Albumin/Globulin Ratio 1.6 (1.1-1.8); Alkaline Phosphatase 86 U/L (38-126); Bilirubin,Total 0.3 mg/dl (0.2-1.3); Calcium 8.4 mg/dl (8.4-10.2); Chol/HDL Ratio 2.6 (1-3.5); Cholesterol 133 mg/dl (140-200); Globulin 2.6 g/dL (1.3-3.2); Glucose 91 mg/dl (74-100); HDL Cholesterol 52 mg/dl (40-60); Total Protein,Serum 6.7 g/dl (6.3-8.2); Triglycerides 87 mg/dl (30-150); VLDL Cholesterol 17 mg/dL (0-40)
[2021-03-19 10:13] LABS: Direct LDL Cholesterol 64.09 mg/dL (100-129)
[2021-03-19 11:19] LABS: 25-OH Vitamin D, Total 35.6 ng/mL (30-100)
[2021-03-20 12:15] LABS: RA Latex Turbid. <10.0 IU/mL (<14.0)
== END ==
PROVIDERS: Nurse Practitioner Family; PCP Internal Medicine Adolescent Medicine; Visit Provider Internal Medicine Adolescent Medicine
DX: M12.9 Arthropathy, unspecified (principal); E78.5 Hyperlipidemia, unspecified; E55.9 Vitamin D deficiency, unspecified; Z86.711 Personal history of pulmonary embolism; Z51.81 Encounter for therapeutic drug level monitoring; Z79.01 Long term (current) use of anticoagulants
CPT/HCPCS: 36415; 80053; 80061; 82306; 85025; 85610; 85651; 86431

== ENCOUNTER 2021-03-25 09:37 | Emergency (ER) | payer MEDICARE, OTHER, SELFPAY ==
--- NOTE | 2021-03-25 10:23 | XR_ITS ---
FINAL REPORT CLINICAL HISTORY: fall fall, hit leg on edge of tub while getting in , hematoma anterior tibia right below knee joint FINDINGS: LEFT TIBIA FIBULA Two views demonstrate no acute fracture or dislocation. There are mild degenerative changes of the ankle. There are moderate degenerative changes of the knee. Anterior soft tissue calcifications are identified. IMPRESSION: Degenerative changes without acute bony abnormality. Reviewed, Interpreted and Dictated by Chester Ambrose III, MD Transcribed by Philly Parks Authenticated by Chester Ambrose III, MD on 03/25/2021 11:57:27 AM [facility]
--- NOTE | 2021-03-25 10:23 | XR_ITS ---
FINAL REPORT CLINICAL HISTORY: fall, hit leg on edge of tub while getting in , hematoma anterior tibia right below knee joint FINDINGS: LEFT KNEE Three views demonstrate no acute fracture or dislocation. No joint effusion is identified. There are moderate degenerative changes, greatest in the medial compartment. There are soft tissue calcifications anterior to the proximal tibia. IMPRESSION: Degenerative and chronic appearing findings. Reviewed, Interpreted and Dictated by Chester Ambrose III, MD Transcribed by Philly Parks Authenticated by Chester Ambrose III, MD on 03/25/2021 11:54:12 AM [facility]
--- NOTE | 2021-03-25 10:23 | XR_ITS ---
FINAL REPORT CLINICAL HISTORY: fallfall, hit leg on edge of tub while getting in , hematoma anterior tibia right below knee joint FINDINGS: LEFT FEMUR Two views demonstrate no acute fracture or dislocation. There are mild degenerative changes of the left hip. There are moderate degenerative changes of the knee. IMPRESSION: Degenerative changes without acute bony abnormality. Reviewed, Interpreted and Dictated by Chester Ambrose III, MD Transcribed by Philly Parks Authenticated by Chester Ambrose III, MD on 03/25/2021 11:57:29 AM [facility]
[2021-03-25 10:48] VITALS: BP 164/67; PULSE 73; RESP 18; TEMP 36.8; O2SAT 97; BMI 33.3
--- NOTE | 2021-03-25 11:03 | HMH.EDUTC ---
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 Take tylenol for pain, since you take the coumadin. Follow up with Dr. Ivey (orthopedics). Sometimes there can be fractures that don't show up well on the first set of x-rays. So, you should follow up if you continue to have symptoms. I put in a referral but you need to call his office and schedule an appointment. Follow up with your regular doctor. GO TO THE ER FOR ANY WORSENING SYMPTOMS Referrals: Sherif Ridley MD [Primary Care Provider] - Milan Ivey MD [Staff Physician] - Time of Disposition: 12:18 Medical Decision Making - Medical Records Medical records reviewed: No: I reviewed the patient's medical records. - Oneal Inquiry Pt receiving controlled substance: No Vital Signs: 03/25/21 10:48 03/25/21 12:30 Temperature 98.2 F 98.2 F Temperature Source Oral Pulse Rate 73 Pulse Rate [Left] 73 Respiratory Rate 18 18 Blood Pressure 164/67 H Blood Pressure [Right Arm] 164/67 H Blood Pressure Mean [Right Arm] 99 02 Sat by Pulse Oximetry 97 - Lab Data Lab results reviewed: Yes: I reviewed the patient's lab results. - Radiology Data #1 Image(s): Knee Image Reviewed: Yes I reviewed the patient's radiology image, Yes I have reviewed radiologist's interpretation Preliminary Findings: No Fracture Seen FINAL REPORT CLINICAL HISTORY: fall, hit leg on edge of tub while getting in , hematoma anterior tibia right below knee joint FINDINGS: LEFT KNEE Three views demonstrate no acute fracture or dislocation. No joint effusion is identified. There are moderate degenerative changes, greatest in the medial compartment. There are soft tissue calcifications anterior to the proximal tibia. IMPRESSION: Degenerative and chronic appearing findings. Reviewed, Interpreted and Dictated by Chester Ambrose III, MD Transcribed by Philly Parks Authenticated by Chester Ambrose III, MD on 03/25/2021 11:54:12 AM [facility] #2 Image(s): Tib/Fib Image Reviewed: Yes I reviewed the patient's radiology image, Yes I have reviewed radiologist's interpretation Preliminary Findings: No Fracture Seen FINAL REPORT CLINICAL HISTORY: fall fall, hit leg on edge of tub while getting in , hematoma anterior tibia right below knee joint FINDINGS: LEFT TIBIA FIBULA Two views demonstrate no acute fracture or dislocation. There are mild degenerative changes of the ankle. There are moderate degenerative changes of the knee. Anterior soft tissue calcifications are identified. IMPRESSION: Degenerative changes without acute bony abnormality. Reviewed, Interpreted and Dictated by Chester Ambrose III, MD Transcribed by Philly Parks Authenticated by Chester Ambrose III, MD on 03/25/2021 11:57:27 AM [facility] #[facility] Image(s): Femur Image Reviewed: Yes I reviewed the patient's radiology image, Yes I have reviewed radiologist's interpretation Preliminary Findings: No Fracture Seen FINAL REPORT CLINICAL HISTORY: fallfall, hit leg on edge of tub while getting in , hematoma anterior tibia right below knee joint FINDINGS: LEFT FEMUR Two views demonstrate no acute fracture or dislocation. There are mild degenerative changes of the left hip. There are moderate degenerative changes of the knee. IMPRESSION: Degenerative changes without acute bony abnormality. Maite
--- NOTE | 2021-03-25 11:11 | CA_ITS ---
FINAL REPORT TECHNIQUE: Color Doppler, duplex Doppler and compression sonography of the left lower extremity deep venous systems was performed. CLINICAL HISTORY: left leg swelling, history of dvt FINDINGS: There is no evidence of deep venous thrombosis from the level of the groin to the calf. The veins are patent and compressible. There is a 1.7 cm lobular mass that may represent a hematoma. The location of this mass is not given. IMPRESSION: No evidence of deep venous thrombosis left lower extremity. Reviewed, Interpreted and Dictated by Chester Ambrose III, MD Transcribed by El Meza Authenticated by Chester Ambrose III, MD on 03/25/2021 12:46:09 PM [facility]
--- NOTE | 2021-03-25 11:18 | HMH.ITSTN ---
UTC XRAYS NOT DONE IN 30MIN , I HAD A PATIENT IN THE ER THAT TOOK A WHILE
[2021-03-25 12:30] VITALS: BP 164/67; PULSE 73; RESP 18; TEMP 36.8
== END 2021-03-25 12:32 | disposition home or self-care (01) ==
PROVIDERS: Emergency Provider Nurse Practitioner Family; PCP Internal Medicine Adolescent Medicine
DX: M79.605 Pain in left leg (principal); M25.562 Pain in left knee; Z86.718 Personal history of other venous thrombosis and embolism; W18.2XXA Fall in (into) shower or empty bathtub, initial encounter; Y92.019 Unspecified place in single-family (private) house as the place of occurrence of the external cause; E78.5 Hyperlipidemia, unspecified; I10 Essential (primary) hypertension; K21.9 Gastro-esophageal reflux disease without esophagitis; M79.7 Fibromyalgia; Z87.891 Personal history of nicotine dependence; F41.8 Other specified anxiety disorders
CPT/HCPCS: G0463; 73552; 73562; 73590; 93971; 99202

== ENCOUNTER 2021-03-31 14:31 | Outpatient (CLI) | payer MEDICARE, OTHER, SELFPAY ==
[2021-03-31 14:44] VITALS: BP 104/62; PULSE 82; RESP 18; TEMP 36.2; O2SAT 98
[2021-03-31 16:36] LABS: PHA INR Fingerstick 3.9 (0.9-1.1)
== END 2021-03-31 15:07 | disposition home or self-care (01) ==
LOC: ACC 14:32 → INF 14:36
PROVIDERS: PCP Internal Medicine Adolescent Medicine; Visit Provider Internal Medicine Adolescent Medicine
DX: J45.50 Severe persistent asthma, uncomplicated (principal); Z51.81 Encounter for therapeutic drug level monitoring; Z79.01 Long term (current) use of anticoagulants
CPT/HCPCS: 85610; 96372; 99211; G0463; J2357

== ENCOUNTER 2021-04-14 13:02 | Outpatient (CLI) | payer MEDICARE, OTHER, SELFPAY ==
[2021-04-14 13:18] VITALS: BP 148/85; PULSE 87; RESP 20; O2SAT 100
--- NOTE | 2021-04-14 14:10 | PC.NURSE ---
1410-pt left chest pac infiltrated while pt in ct scan; notified and spoke with md;pt to monitor for s/s of infection and use ice packs over sites; pt to return on tuesday to be reaccessed and taken to fluoroscopy to check flow through port.
[2021-04-14 14:16] LABS: PHA INR Fingerstick 2.4 (0.9-1.1)
== END 2021-04-14 13:18 | disposition home or self-care (01) ==
PROVIDERS: PCP Internal Medicine Adolescent Medicine; Visit Provider Allergy & Immunology
DX: J45.50 Severe persistent asthma, uncomplicated (principal); Z51.81 Encounter for therapeutic drug level monitoring; Z79.01 Long term (current) use of anticoagulants
CPT/HCPCS: 85610; 96372; 99211; G0463; J2357

== ENCOUNTER → 2021-04-20 16:07 | Outpatient (CLI) | payer MEDICARE, OTHER, SELFPAY ==
--- NOTE | 2021-04-20 16:16 | MR_ITS ---
PROCEDURE INFORMATION: Exam: MR Cervical Spine Without Contrast Exam date and time: 04/20/2021 4:16 PM Age: 65 years old Clinical indication: Neck pain; Additional info: Neck pain. Neck pain. RT arm pain and numbness [id number]. No injury or trauma. TECHNIQUE: Imaging protocol: Multiplanar magnetic resonance images of the cervical spine without contrast. COMPARISON: [facility] CT angio chest 06/10/2018 11:56 AM FINDINGS: Vertebrae: Mild reversal of the normal cervical lordosis. Moderate multilevel spondylosis. Mild chronic anterior wedging of C7. No evidence of an acute fracture. Spinal cord: Mild multilevel disc bulge. No evidence of a signal abnormality in the visualized spinal cord. C2-C3: No evidence of high-grade central spinal or neural foraminal stenosis. C3-C4: No evidence of high-grade central spinal or neural foraminal stenosis. C4-C5: No evidence of high-grade central spinal or neural foraminal stenosis. C5-C6: Mild disc bulge causes slight thecal sac effacement. No evidence of high-grade central spinal stenosis. Probable mild bilateral neural foraminal stenosis. C6-C7: Mild disc bulge causes slight thecal sac effacement. No evidence of high-grade central spinal stenosis. Probable mild bilateral neural foraminal stenosis. C7-T1: Disc bulge causes slight thecal sac effacement. No evidence of high-grade central spinal or neural foraminal stenosis. Soft tissues: Unremarkable. Vertebral arteries: Expected flow voids in the vertebral arteries. IMPRESSION: Dokf-wn-nrycnsat degenerative changes. No evidence of high-grade central spinal stenosis or evidence of a signal abnormality in the visualized spinal cord. Otherwise, as above.
== END ==
PROVIDERS: PCP Internal Medicine Adolescent Medicine; Visit Provider Nurse Practitioner Family
DX: M54.2 Cervicalgia (principal); M54.12 Radiculopathy, cervical region
CPT/HCPCS: 72141; 76376

== ENCOUNTER 2021-04-28 12:08 | Outpatient (CLI) | payer MEDICARE, OTHER, SELFPAY ==
[2021-04-28 12:35] VITALS: BP 130/68; PULSE 74; RESP 18; TEMP 36.6; O2SAT 98
== END 2021-04-28 12:58 | disposition home or self-care (01) ==
LOC: INF 12:09
PROVIDERS: PCP Internal Medicine Adolescent Medicine; Visit Provider Allergy & Immunology
DX: J45.50 Severe persistent asthma, uncomplicated (principal)
CPT/HCPCS: 96372; J2357

== ENCOUNTER → 2021-05-05 11:11 | Outpatient (CLI) | payer MEDICARE, OTHER, SELFPAY ==
--- NOTE | 2021-05-05 11:14 | CA_ITS ---
APPROVED REPORT EXAM: Comprehensive 2D, Doppler, and color-flow Echocardiogram Turret Lathe Set Up Operator: Rema Maria RVT Ht: 5 ft 5 in Wt: 200lbs BSA: 1.98 BP: 128/65 mmHg Indications: SOA,HTN,COPD,EDEMA,DD,HX RHEUMATIC FEVER,SMOKER,HTN,HLD 2D Dimensions LVOT 1.93 cm (M/F) 1.5-2.5 LA Volume 31.90 mL LA Volume Index 16.19 mL/m2 (M/F) 16-34 M-Mode Dimensions RVDd 2.04 cm (0.9-2.6) LA Diam 3.79 cm (1.9-4.0) LVDd 5.22 cm (3.5-5.7) Ao Diam 2.90 cm (2.0-3.7) LVDs 3.10 cm (3.5-5.7) IVSd 1.02 cm (0.6-1.1) PWd 1.32 cm (0.6-1.1) EF (Teich) 71.00% FS 40.60% EDV (Teich) 130.70 mL TAPSE 2.73 (<1.7) ESV (Teich) 37.90 mL LV Diastology E Decel Time 253.00 (160-240 msec) E/A Ratio 1.0 MED E' 13.10 (< 7 cm/sec) E'/MED E' Ratio 8.05 (>14) LAT E' 9.20 (<10 cm/sec) E/LAT E' Ratio 11.47 (>14) Aortic Valve AO Peak GR. 8.80 mmHg Mitral Valve MV E Max Richie. 105.00 (40-130 cm/s) MV A Velocity 102.00 (40-130 cm/s) E/A Ratio 1.03 MV Decel. Time 253.00 (160-240 ms) MV PHT 74.00 ms Pulmonary Valve PV Peak Velocity 118.00 (50-150 cm/s) Tricuspid Valve TR P. Velocity 281.00 cm/s RAP Estimate 10.00 mmHg RVSP 41.50 mmHg Left Ventricle Left atrium is mildly enlarged, left ventricle normal size, mild concentric left ventricular hypertrophy, visually estimated ejection fraction 55% with no regional wall motion abnormality, diastolic parameters are inconclusive. Right Ventricle Right atrium and right ventricle is normal size and contractility. Aortic Valve Aortic valve is minimally thickened and calcified without aortic stenosis aortic insufficiency. Mitral Valve Mitral valve grossly normal, there is trace mitral regurgitation. Tricuspid Valve Tricuspid grossly normal, there is trace tricuspid regurgitation, calculated right ventricular systolic pressure is 41 mmHg. Pulmonic Valve Pulmonic valve is poorly visualized. Great Vessels Aortic root is normal size. Inferior vena cava is poorly visualized. Pericardium No significant pericardial effusion noted. Conclusion 1. Mildly enlarged left atrium, normal left ventricular size, mild concentric left ventricular hypertrophy, visually estimated ejection fraction 55% with no regional wall motion abnormality, diastolic parameters are inconclusive. 2. Trace mitral and tricuspid regurgitation, calculated right ventricular systolic pressure is 41 mmHg. 3. No significant pericardial effusion. 4. Inferior vena cava is poorly visualized. Electronically signed by : Gerald Fox MD 05/05/2021 19:46:11
== END ==
PROVIDERS: PCP Internal Medicine Adolescent Medicine; Visit Provider Nurse Practitioner Family
DX: D68.9 Coagulation defect, unspecified (principal); E78.2 Mixed hyperlipidemia; I10 Essential (primary) hypertension; I51.89 Other ill-defined heart diseases; R06.00 Dyspnea, unspecified; R60.0 Localized edema; Z79.01 Long term (current) use of anticoagulants; Z86.718 Personal history of other venous thrombosis and embolism
CPT/HCPCS: 93306

== ENCOUNTER 2021-05-12 12:53 | Outpatient (CLI) | payer MEDICARE, OTHER, SELFPAY ==
[2021-05-12 13:15] VITALS: BP 123/66; PULSE 70; RESP 18; O2SAT 98
== END 2021-05-12 13:15 | disposition home or self-care (01) ==
LOC: INF 12:53
PROVIDERS: PCP Internal Medicine Adolescent Medicine; Visit Provider Allergy & Immunology
DX: Z79.01 Long term (current) use of anticoagulants (principal); Z86.711 Personal history of pulmonary embolism
CPT/HCPCS: 96372; J2357

== ENCOUNTER 2021-05-26 13:04 | Outpatient (CLI) | payer MEDICARE, OTHER, SELFPAY ==
[2021-05-26 13:30] VITALS: BP 121/77; PULSE 75; RESP 18; TEMP 36.3; O2SAT 98
== END 2021-05-26 13:45 | disposition home or self-care (01) ==
LOC: INF 13:05
PROVIDERS: PCP Internal Medicine Adolescent Medicine; Visit Provider Allergy & Immunology
DX: Z51.81 Encounter for therapeutic drug level monitoring (principal); Z79.01 Long term (current) use of anticoagulants; J45.50 Severe persistent asthma, uncomplicated; Z86.711 Personal history of pulmonary embolism
CPT/HCPCS: 85610; 96372; 99211; G0463; J2357

== ENCOUNTER 2021-06-09 13:05 | Outpatient (CLI) | payer MEDICARE, OTHER, SELFPAY ==
[2021-06-09 13:20] VITALS: BP 110/74; PULSE 68; RESP 20; TEMP 37.1; O2SAT 95
[2021-06-09 13:24] VITALS: BP 109/78; PULSE 77; RESP 20; TEMP 36.9; O2SAT 95
--- NOTE | 2021-06-09 13:37 | PC.NURSE ---
GIVEN IN BILATERAL ARMS
== END 2021-06-09 13:35 | disposition home or self-care (01) ==
LOC: INF 13:06
PROVIDERS: PCP Internal Medicine Adolescent Medicine; Visit Provider Allergy & Immunology
DX: J45.50 Severe persistent asthma, uncomplicated (principal)
CPT/HCPCS: 96372; J2357

== ENCOUNTER 2021-06-23 13:15 | Outpatient (CLI) | payer MEDICARE, OTHER, SELFPAY ==
--- NOTE | 2021-06-23 13:40 | PC.NURSE ---
injections given bilateral arms
[2021-06-23 13:45] VITALS: BP 109/50; PULSE 78; RESP 20; TEMP 36.9; O2SAT 100
== END 2021-06-23 14:00 | disposition home health service (06) ==
LOC: INF 13:18
PROVIDERS: PCP Internal Medicine Adolescent Medicine; Visit Provider Allergy & Immunology
DX: J45.50 Severe persistent asthma, uncomplicated (principal)
CPT/HCPCS: 96372; J2357

== ENCOUNTER 2021-07-07 12:24 | Outpatient (CLI) | payer MEDICARE, OTHER, SELFPAY ==
[2021-07-07 12:35] VITALS: BP 106/60; PULSE 68; RESP 20; TEMP 36.9; O2SAT 96
--- NOTE | 2021-07-07 13:35 | PC.NURSE ---
injections given in bilateral arms
== END 2021-07-07 14:06 | disposition home or self-care (01) ==
PROVIDERS: PCP Internal Medicine Adolescent Medicine; Visit Provider Allergy & Immunology
DX: J45.50 Severe persistent asthma, uncomplicated (principal)
CPT/HCPCS: 96372; 99211; G0463; J2357

== ENCOUNTER → 2021-07-13 10:06 | Outpatient (CLI) | payer MEDICARE, OTHER, SELFPAY ==
--- NOTE | 2021-07-13 10:19 | XR_ITS ---
FINAL REPORT CLINICAL HISTORY: RIGHT ANTERIOR SHOULDER PAIN FINDINGS: RIGHT SHOULDER Two views demonstrate no acute fracture or dislocation. There are mild degenerative changes of the acromioclavicular and glenohumeral joints. The visualized bony structures are well aligned. No soft tissue abnormality is seen. IMPRESSION: Mild degenerative change with no acute bony abnormality. Reviewed, Interpreted and Dictated by Chester Ambrose III, MD Transcribed by Zoe Brian Authenticated and [facility]
[2021-07-13 10:46] LABS: Basophils # 0.1 K/mm3 (0-0.2); Basophils % 1.6 % (0.1-2.0); Eosinophils # 0.3 K/mm3 (0.0-0.4); Eosinophils % 3.7 % (0.1-12.0); Hematocrit 38.3 % (37.0-47.0); Hemoglobin 12.5 g/dL (12.2-16.2); Lymphocytes # 1.8 K/mm3 (0.7-4.5); Lymphocytes % 20.8 % (10-50); Mean Corpuscular HGB Conc 32.6 g/dL (31.8-35.4); Mean Corpuscular Hemoglobin 31.1 pg (27.0-31.2); Mean Corpuscular Volume 95.5 fl (81-99); Mean Platelet Volume 7.9 fl (7.4-10.4); Monocytes # 0.5 K/mm3 (0.1-1.0); Monocytes % 5.1 % (1.7-9.3); Neutrophils % 68.8 % (37.0-80.0); Platelet Count 265 K/mm3 (142-424); Red Blood Count 4.01 M/mm3 (4.20-5.40); Red Cell Distribution Width 15.8 % (11.5-17.5); White Blood Count 8.7 K/mm3 (4.8-10.8)
[2021-07-13 12:02] LABS: Alanine Aminotransferase 20 U/L (12-78); Albumin Level 3.8 g/dl (3.5-5.0); Albumin/Globulin Ratio 1.4 (1.1-1.8); Alkaline Phosphatase 92 U/L (38-126); Anion Gap 11.1 mEq/L (5-15); Aspartate Amino Transferase 24 U/L (14-36); Blood Urea Nitrogen 12 mg/dl (7-17); Calcium 8.8 mg/dl (8.4-10.2); Carbon Dioxide 28 mmol/L (22.0-30.0); Chloride 106 mmol/L (98-107); Estimated Glomerular Filt Rate 84 ml/min (>60); GFR (African American) 102 ML/MIN (>60); Globulin 2.8 g/dL (1.3-3.2); Glucose 70 mg/dl (74-100); Potassium 4.1 mmoL/L (3.5-5.1); Sodium 141 mmol/L (136-145); Total Protein,Serum 6.6 g/dl (6.3-8.2)
[2021-07-13 12:08] LABS: Bilirubin,Total 0.1 mg/dl (0.2-1.3)
== END ==
PROVIDERS: PCP Internal Medicine Adolescent Medicine; Visit Provider Nurse Practitioner Family
DX: R10.11 Right upper quadrant pain (principal); M25.511 Pain in right shoulder
CPT/HCPCS: 36415; 73030; 80053; 85025

== ENCOUNTER → 2021-07-17 09:02 | Outpatient (CLI) | payer MEDICARE, OTHER, SELFPAY ==
--- NOTE | 2021-07-17 09:06 | US_ITS ---
FINAL REPORT CLINICAL HISTORY: RUQ PAIN COMPARISON: October 27, 2018 FINDINGS: Sonographic images of the right upper quadrant were obtained. The pancreas is partially obscured.The liver is mildly fatty infiltrated.The gallbladder is surgically absent. The common bile duct measures 1.3 cm. The common hepatic duct measures 0.7 cm. Findings are likely due to post cholecystectomy change. Limited images of the right kidney are unremarkable. IMPRESSION: Absent gallbladder with biliary duct dilatation likely due to post cholecystectomy change. Mild fatty liver. Reviewed, Interpreted and Dictated by Chester Ambrose III, MD Transcribed by El Meza Authenticated and . [facility]
== END ==
PROVIDERS: PCP Internal Medicine Adolescent Medicine; Visit Provider Nurse Practitioner Family
DX: R10.11 Right upper quadrant pain (principal)
CPT/HCPCS: 76705

== ENCOUNTER 2021-07-21 12:34 | Outpatient (CLI) | payer MEDICARE, OTHER, SELFPAY ==
[2021-07-21 12:44] VITALS: BP 125/65; PULSE 83; RESP 18; TEMP 36.8; O2SAT 98
== END 2021-07-21 12:59 | disposition home or self-care (01) ==
LOC: INF 12:36
PROVIDERS: PCP Nurse Practitioner Family; Visit Provider Allergy & Immunology
DX: J45.50 Severe persistent asthma, uncomplicated (principal)
CPT/HCPCS: 96372; J2357

== ENCOUNTER 2021-08-04 13:00 | Outpatient (CLI) | payer MEDICARE, OTHER, SELFPAY ==
[2021-08-04 13:16] VITALS: BP 132/68; PULSE 66; RESP 20; O2SAT 98
== END 2021-08-04 13:16 | disposition home or self-care (01) ==
LOC: INF 13:01
PROVIDERS: PCP Internal Medicine Adolescent Medicine; Visit Provider Allergy & Immunology
DX: J45.50 Severe persistent asthma, uncomplicated (principal)
CPT/HCPCS: 96372; J2357

== ENCOUNTER 2021-08-18 12:37 | Outpatient (CLI) | payer MEDICARE, OTHER, SELFPAY ==
[2021-08-18 14:55] LABS: PHA INR Fingerstick 3.1 (0.9-1.1)
== END 2021-08-18 16:01 | disposition home or self-care (01) ==
LOC: ACC 12:38
PROVIDERS: PCP Internal Medicine Adolescent Medicine; Visit Provider Internal Medicine Adolescent Medicine
DX: Z79.01 Long term (current) use of anticoagulants (principal)
CPT/HCPCS: 85610; 99211; G0463

== ENCOUNTER 2021-08-18 12:40 | Outpatient (CLI) | payer MEDICARE, OTHER, SELFPAY ==
[2021-08-18 13:00] VITALS: BP 128/71; PULSE 77; RESP 18; TEMP 36.7; O2SAT 97
== END 2021-08-18 13:15 | disposition home or self-care (01) ==
LOC: INF 12:41
PROVIDERS: PCP Internal Medicine Adolescent Medicine; Visit Provider Allergy & Immunology
DX: J45.50 Severe persistent asthma, uncomplicated (principal); Z51.81 Encounter for therapeutic drug level monitoring; Z79.01 Long term (current) use of anticoagulants
CPT/HCPCS: 85610; 96372; 99211; G0463; J2357

== ENCOUNTER → 2021-09-01 09:55 | Outpatient (CLI) | payer MEDICARE, OTHER, SELFPAY ==
--- NOTE | 2021-09-01 09:59 | MR_ITS ---
FINAL REPORT TECHNIQUE: Multiplanar multisequence imaging of the abdomen was obtained without contrast. MRCP images were obtained as well. CLINICAL HISTORY: RUQ PAIN, COMMON BILE DUCT DILATION. NAUSEA AND VOMITING. SYMPTOMS XYEARS BUT GETTING WORSE. FINDINGS: The liver is homogeneous. There is no focal hepatic lesion. The spleen is normal in size and signal intensity. The adrenal glands and pancreas are unremarkable. The kidneys are without mass or hydronephrosis. Limited evaluation of the GI tract is within normal limits. There is no ascites or lymphadenopathy. The gallbladder is absent. The common duct is mildly dilated up to 11 mm. There is no common duct filling defect or stricture. The pancreatic duct appears normal. IMPRESSION: Mildly dilated common duct without common duct stone or stricture. No acute abnormality. Reviewed, Interpreted and Dictated by Sierra Pelletier MD Transcribed by El Meza Authenticated and [facility]
== END ==
PROVIDERS: PCP Internal Medicine Adolescent Medicine; Visit Provider Nurse Practitioner Family
DX: K83.8 Other specified diseases of biliary tract (principal)
CPT/HCPCS: 74181; 76376

== ENCOUNTER 2021-09-01 12:47 | Outpatient (CLI) | payer MEDICARE, OTHER, SELFPAY ==
[2021-09-01 13:02] VITALS: BP 113/59; PULSE 73; RESP 18; TEMP 36.7; O2SAT 98
== END 2021-09-01 13:19 | disposition home or self-care (01) ==
LOC: INF 12:49
PROVIDERS: PCP Nurse Practitioner Family; Visit Provider Allergy & Immunology
DX: J45.50 Severe persistent asthma, uncomplicated (principal); R10.11 Right upper quadrant pain; R11.0 Nausea
CPT/HCPCS: 74181; 76376; 96372; J2357

== ENCOUNTER 2021-09-15 11:29 | Outpatient (CLI) | payer MEDICARE, OTHER, SELFPAY ==
[2021-09-15 11:50] VITALS: BP 123/90; PULSE 83; RESP 18; TEMP 36.4; O2SAT 95
[2021-09-15 13:21] LABS: PHA INR Fingerstick 3.8 (0.9-1.1)
== END 2021-09-15 11:54 | disposition home or self-care (01) ==
LOC: ACC 11:33
PROVIDERS: PCP Internal Medicine Adolescent Medicine; Visit Provider Internal Medicine Adolescent Medicine
DX: Z51.81 Encounter for therapeutic drug level monitoring (principal); Z79.01 Long term (current) use of anticoagulants; J45.50 Severe persistent asthma, uncomplicated
CPT/HCPCS: 85610; 96372; 99211; G0463; J2357

== ENCOUNTER 2021-09-29 12:30 | Outpatient (CLI) | payer MEDICARE, OTHER, SELFPAY ==
[2021-09-29 12:43] VITALS: BP 123/66; PULSE 76; RESP 18; TEMP 36.4; O2SAT 96
[2021-09-29 13:18] LABS: PHA INR Fingerstick 2.5 (0.9-1.1)
== END 2021-09-29 12:58 | disposition home or self-care (01) ==
LOC: INF 12:31
PROVIDERS: PCP Internal Medicine Adolescent Medicine; Visit Provider Allergy & Immunology
DX: J45.50 Severe persistent asthma, uncomplicated (principal); Z51.81 Encounter for therapeutic drug level monitoring; Z79.01 Long term (current) use of anticoagulants
CPT/HCPCS: 85610; 96372; 99211; G0463; J2357

== ENCOUNTER → 2021-09-30 13:05 | Outpatient (CLI) | payer MEDICARE, OTHER, SELFPAY ==
--- NOTE | 2021-09-30 13:09 | MR_ITS ---
FINAL REPORT CLINICAL HISTORY: RIGHT SHOULDER PAIN, limited rom best images possible FINDINGS: Multi planar MR imaging of the right shoulder was performed. There is heterogeneous abnormal signal of the distal supraspinatus tendon consistent with tendinosis. There is no abnormal fluid in the subacromial/subdeltoid bursa. There is a moderate joint effusion present. The posterior glenoid labrum appears intact. The anterior glenoid labrum is rather diminutive. The biceps tendon appears intact. IMPRESSION: Extensive tendinosis distal supraspinatus tendon. Moderate joint effusion. Reviewed, Interpreted and Dictated by Neftali Sauceda MD Transcribed by Jenny Bermudez Authenticated and [facility]
== END ==
PROVIDERS: PCP Internal Medicine Adolescent Medicine; Visit Provider Orthopaedic Surgery
DX: M25.511 Pain in right shoulder (principal)
CPT/HCPCS: 73221

== ENCOUNTER 2021-10-13 13:07 | Outpatient (CLI) | payer MEDICARE, OTHER, SELFPAY ==
[2021-10-13 13:30] VITALS: BP 111/87; PULSE 78; RESP 18; O2SAT 96
== END 2021-10-13 13:30 | disposition home or self-care (01) ==
LOC: INF 13:08
PROVIDERS: PCP Internal Medicine Adolescent Medicine; Visit Provider Allergy & Immunology
DX: J45.50 Severe persistent asthma, uncomplicated (principal)
CPT/HCPCS: 96372; J2357

== ENCOUNTER 2021-11-03 13:17 | Outpatient (CLI) | payer MEDICARE, OTHER, SELFPAY ==
[2021-11-03 13:27] VITALS: BP 102/69; PULSE 81; RESP 18; TEMP 36.2; O2SAT 97
[2021-11-03 15:20] LABS: PHA INR Fingerstick 2.4 (0.9-1.1)
== END 2021-11-03 13:50 | disposition home or self-care (01) ==
LOC: INF 13:19
PROVIDERS: PCP Internal Medicine Adolescent Medicine; Visit Provider Allergy & Immunology
DX: J45.50 Severe persistent asthma, uncomplicated (principal); Z51.81 Encounter for therapeutic drug level monitoring; Z79.01 Long term (current) use of anticoagulants
CPT/HCPCS: 85610; 96372; 99211; G0463; J2357

== ENCOUNTER 2021-11-17 12:56 | Outpatient (CLI) | payer MEDICARE, OTHER, SELFPAY ==
[2021-11-17 13:19] VITALS: BP 126/63; PULSE 97; RESP 18; TEMP 36.4; O2SAT 97
== END 2021-11-17 13:30 | disposition home or self-care (01) ==
LOC: INF 12:57
PROVIDERS: PCP Internal Medicine Adolescent Medicine; Visit Provider Allergy & Immunology
DX: J45.50 Severe persistent asthma, uncomplicated (principal)
CPT/HCPCS: 96372; J2357

== ENCOUNTER 2021-12-08 12:59 | Outpatient (CLI) | payer MEDICARE, OTHER, SELFPAY ==
--- NOTE | 2021-12-08 13:33 | PC.NURSE ---
xolair given in bilateral arms
[2021-12-08 13:40] VITALS: BP 122/72; PULSE 79; RESP 20; TEMP 36.9; O2SAT 95
== END 2021-12-08 13:46 | disposition home or self-care (01) ==
LOC: INF 13:00
PROVIDERS: PCP Internal Medicine Adolescent Medicine; Visit Provider Allergy & Immunology
DX: J45.50 Severe persistent asthma, uncomplicated (principal)
CPT/HCPCS: 96372; J2357

== ENCOUNTER → 2021-12-12 08:42 | Outpatient (CLI) | payer MEDICARE, OTHER, SELFPAY ==
[2021-12-12 09:18] LABS: Blood Urea Nitrogen 14 mg/dl (7-17); Estimated Glomerular Filt Rate 100 ml/min (>60); GFR (African American) 121 ML/MIN (>60)
== END ==
PROVIDERS: PCP Internal Medicine Adolescent Medicine; Visit Provider Neurological Surgery
DX: Z51.81 Encounter for therapeutic drug level monitoring (principal); Z79.01 Long term (current) use of anticoagulants; Z86.718 Personal history of other venous thrombosis and embolism
CPT/HCPCS: 36415; 82565; 84520

== ENCOUNTER → 2021-12-14 08:47 | Outpatient (CLI) | payer MEDICARE, OTHER, SELFPAY ==
--- NOTE | 2021-12-14 08:55 | MR_ITS ---
FINAL REPORT CLINICAL HISTORY: .BILATERAL SHOULDER AND ARM PAIN, NUMBNESS AND TINGLING. HEADACHE. SYMPTOMS X YEARS. FINDINGS: Multiplanar MR imaging of the cervical spine was performed without contrast. On the sagittal T2-weighted images, significant degenerative signal is seen throughout with moderate disc space narrowing at C5-6, C6-7 and C7-T1. There is no evidence of fracture. The vertebral alignment is normal. The cervical spinal cord has an unremarkable appearance without evidence of mass, edema or syrinx. No significant canal stenosis is identified. The cervicomedullary junction is normal. C2-3: There is no significant canal stenosis or neural foraminal narrowing. C3-4: There is no significant canal stenosis or neural foraminal narrowing. C4-5: There is no significant canal stenosis or neural foraminal narrowing. C5-6: Moderate diffuse disc bulge with endplate hypertrophy. There is moderate central canal stenosis and moderate bilateral neural foraminal narrowing. C6-7: Moderate diffuse disc bulge with endplate hypertrophy. There is moderate central canal stenosis and moderate bilateral neural foraminal narrowing. C7-T1: Right posterolateral disc protrusion with moderate right neural foraminal narrowing. IMPRESSION: Diffuse disc bulges at C5-6 and C6-7 with bilateral neural foraminal narrowing. Right posterolateral disc protrusion at C7-T1 with moderate right neural foraminal narrowing. Reviewed, Interpreted and Dictated by Neftali Sauceda MD Transcribed by Olivia Valdovinos Authenticated and [facility]
--- NOTE | 2021-12-14 08:55 | MR_ITS ---
FINAL REPORT CLINICAL HISTORY: MYELOPATHY. HEADAHCE. NO REFLEX IN THUMB IN RIGHT HAND. DIZZINESS. 18ML PROHANCE GIVEN. FINDINGS: Multiplanar MR imaging of the brain was performed without and with contrast. Moderate abnormal signal is seen throughout the deep white matter bilaterally. There is no evidence of intracranial hemorrhage or mass. No abnormal extra-axial fluid collection is seen. The ventricular size is within normal limits. There is no evidence of shift of the midline structures. The posterior fossa and brainstem have an unremarkable appearance. No area of abnormal restricted diffusion is identified. No abnormal contrast enhancement is seen. There are moderate changes of chronic mastoiditis, left greater than right. Normal major vessel vascular flow voids are noted. IMPRESSION: No acute intracranial abnormality identified. Moderate changes of chronic mastoiditis. Reviewed, Interpreted and Dictated by Neftali Sauceda MD Transcribed by Olivia Valdovinos Authenticated and [facility]
== END ==
PROVIDERS: PCP Internal Medicine Adolescent Medicine; Visit Provider Neurological Surgery
DX: G54.9 Nerve root and plexus disorder, unspecified (principal); M54.50 Low back pain, unspecified
CPT/HCPCS: 70553; 72141; 76376; A9576

== ENCOUNTER 2021-12-15 13:01 | Outpatient (CLI) | payer MEDICARE, OTHER, SELFPAY ==
[2021-12-15 14:35] LABS: PHA INR Fingerstick 2.2 (0.9-1.1)
== END 2021-12-15 14:36 ==
LOC: ACC 13:02
PROVIDERS: PCP Internal Medicine Adolescent Medicine; Visit Provider Internal Medicine Adolescent Medicine
DX: Z51.81 Encounter for therapeutic drug level monitoring (principal); Z79.01 Long term (current) use of anticoagulants
CPT/HCPCS: 85610; 99211; G0463

== ENCOUNTER 2022-01-04 15:01 | Outpatient (CLI) | payer MEDICARE, OTHER, SELFPAY ==
[2022-01-04 15:15] VITALS: BP 107/56; PULSE 81; RESP 18; TEMP 36.4; O2SAT 97
== END 2022-01-04 15:41 | disposition home or self-care (01) ==
LOC: INF 15:03
PROVIDERS: PCP Internal Medicine Adolescent Medicine; Visit Provider Allergy & Immunology
DX: J45.50 Severe persistent asthma, uncomplicated (principal)
CPT/HCPCS: 96372; J2357

== ENCOUNTER 2022-01-19 12:11 | Outpatient (CLI) | payer MEDICARE, OTHER, SELFPAY ==
[2022-01-19 12:24] VITALS: BP 131/81; PULSE 66; RESP 18; TEMP 36.5
== END 2022-01-19 12:30 | disposition home or self-care (01) ==
LOC: INF 12:12
PROVIDERS: PCP Internal Medicine Adolescent Medicine; Visit Provider Allergy & Immunology
DX: J45.50 Severe persistent asthma, uncomplicated (principal)
CPT/HCPCS: 96372; J2357

== ENCOUNTER → 2022-01-21 08:42 | Outpatient (POV) | payer MEDICARE, OTHER, SELFPAY ==
[2022-01-21 08:58] VITALS: BP 122/83; PULSE 83; RESP 18; O2SAT 93; BMI 33.3
--- NOTE | 2022-01-21 10:08 | EXP.PAIN.OV ---
HPI Data of Consult Patient: new to practice Consult date: 01/21/22 Requesting Physician: Mary Dyson APRN Primary Care Provider: Sherif Ridley MD Consult Narrative Reason for consult: Right shoulder pain, neck pain History of present illness: Ms. Blue is a 66 year old female who presents today as a new patient. She is a referral from Valencia Marques's office. Today she rates her pain a 6 out of 10. Patient states the pain is all in her right shoulder and upper back/neck. Patient denies any specific trauma or injury. Patient states this has been going on for a long time and progressively worsened over time. Patient does describe this as a aching, throbbing, sharp sensation that is worse with increased activity. Patient has tried [id number] Tylenol with minimal improvement. Patient is managed with tramadol 50 mg twice a day along with gabapentin 300 mg 4 times a day from an outside provider. Patient denies any side effects from this medications. She states these medications do help take the edge off of her pain. Patient has also tried gbyk-naw-[id number] creams as well as heat and ice with minimal improvement. Patient has been to physical therapy all summer with no additional relief. Patient has tried a chiropractor in the past and stated this did provide some improvement. Patient does have a history of back surgery x2. These procedures were done approximately in [address] Gayle. Patient states she has been to see a orthopedic doctor in [place] for her right shoulder however they recommended that she try our office first before proceeding forward with surgical intervention. Patient states that she did get a right shoulder injection at [facility] that did provide significant improvement. Her Oneal is [phone]. Its been reviewed and appropriate. CC: Mary Dyson APRN [facility] Disclaimer: The information contained in this section may have been updated after the patient was seen, as this information can be updated by other users. Medical History (Updated 01/21/22 @ 10:14 by Mary Dyson APRN) Abnormal EKG Allergies Anxiety and depression Arthritis Asthma Chest pain Clotting disorder COPD (chronic obstructive pulmonary disease) COPD (chronic obstructive pulmonary disease) Diastolic dysfunction DVT (deep venous thrombosis) DVT (deep venous thrombosis) Eustachian tube dysfunction Fatigue Fatigue Fibromyalgia Gallbladder disease GERD (gastroesophageal reflux disease) Granulomatous lung disease Hiatal hernia History of sinus problem HLD (hyperlipidemia) HLD (hyperlipidemia) HTN (hypertension) Hypertension Kidney stones FCI (current) use of anticoagulants Lung disease Migraines Pulmonary embolism Pulmonary embolism SOB (shortness of breath) UTI (urinary tract infection) UTI (urinary tract infection) Surgical History H/O cardiac catheterization H/O left breast biopsy H/O sinus surgery H/O total hysterectomy History of bilateral carpal tunnel release History of colonoscopy History of esophagogastroduodenoscopy (EGD) History of tonsillectomy Hx of appendectomy Hx of cholecystectomy Previous back surgery Family History Other Family history of alcoholism Family history of asthma Family history of bleeding disorder Family history of cancer Family history of diabetes mellitus (DM) Family history of hyperlipidemia Family history of hypertension Family history of myocardial infarction Family history of stroke Family history of substance abuse Social History (Updated 01/21/22 @ 09:22 by Brunilda Burch, TITO) Smoking Status: Former smoker pack-years: 40 second hand exposure: No alcohol intake: current substance use type: denies use current occupational status: retired Travel in the last 8 weeks: None household members: spouse housing: hous
== END ==
PROVIDERS: PCP Internal Medicine Adolescent Medicine; Visit Provider Nurse Practitioner Family
DX: M51.36 Other intervertebral disc degeneration, lumbar region (principal); M50.123 Cervical disc disorder at C6-C7 level with radiculopathy; M96.1 Postlaminectomy syndrome, not elsewhere classified; M25.511 Pain in right shoulder; R51.9 Headache, unspecified
CPT/HCPCS: 99202; G0463

== ENCOUNTER → 2022-01-26 09:16 | Day surgery (SDC) | payer MEDICARE, OTHER, SELFPAY ==
[2022-01-26 09:27] VITALS: BP 152/72; PULSE 77; RESP 18; TEMP 36.8; O2SAT 97; BMI 33.3
[2022-01-26 10:00] VITALS: BP 144/69; PULSE 65; RESP 18; O2SAT 97
--- NOTE | 2022-01-26 10:00 | P.PCN_ITS ---
Procedure Date: 01/26/22 Time: 09:50 Anesthesiologist:: Dsutin Jaquez CRNA Complications:: None Pre-procedure Diagnosis:: Osteoarthritis right shoulder Post-procedure Diagnosis:: Same. Indications for Procedure:: Very pleasant 66-year-old female comes our clinic today with right shoulder pa in. She describes pain as constant dull aching sharp and stabbing at times. She rates her pain 7/10. Patient has difficulty with extension of the shoulder joint. Procedure Details:: Procedure Details: Right shoulder intra-articular injection Informed consent was obtained risk and benefits of the procedure were explained to the patient. Patient was taken to the procedure room. The right shoulder was prepped using ChloraPrep. A 25-gauge needle was used first anteriorly, laterally, and then posteriorly to inject 10 mL bupivacaine 0.25% and Depo- Medrol 40 mg. Patient tolerated procedure well with no complications. Plan and Disposition:: Patient was discharged without incident.
== END | disposition home or self-care (01) ==
PROVIDERS: PCP Internal Medicine Adolescent Medicine; Visit Provider Nurse Anesthetist, Certified Registered
DX: M19.011 Primary osteoarthritis, right shoulder (principal)
CPT/HCPCS: 20610; J1040

== ENCOUNTER 2022-02-03 13:19 | Outpatient (CLI) | payer MEDICARE, OTHER, SELFPAY ==
[2022-02-03 13:41] VITALS: BP 109/63; PULSE 95; RESP 18; TEMP 36.4; O2SAT 96
== END 2022-02-03 13:59 | disposition home or self-care (01) ==
LOC: INF 13:20
PROVIDERS: PCP Internal Medicine Adolescent Medicine; Visit Provider Allergy & Immunology
DX: J45.50 Severe persistent asthma, uncomplicated (principal)
CPT/HCPCS: 96372; J2357

== ENCOUNTER → 2022-02-10 09:45 | Outpatient (POV) | payer MEDICARE, OTHER, SELFPAY ==
--- NOTE | 2022-02-10 10:06 | EXP.PAIN.SOA ---
[facility] Pain Management SOAP Note Subjective:: Patient is a pleasant 66-year-old female who presents today for follow-up of right shoulder intra-articular injection on 01/26/2022. We are currently treating the patient for degenerative joint disease of cervical and lumbar spine with cervical and lumbar radiculopathy symptoms, postlaminectomy syndrome lumbar spine, neck pain, headache, right shoulder pain. Today the patient states that she has had at least 40 to 50% relief following this injection and feels like it still continuing to provide additional improvement. Patient states she has been able to increase her range of motion and activity with decreased pain symptoms. Patient states that she normally takes her gabapentin 600 mg in the morning with 2 800 mg Tylenol however she has not had to use the Tylenol following having this injection. Patient is managed with tramadol 50 mg twice a day and gabapentin 300 mg 4 times a day from an outside provider. Patient denies any side effects from these medications. She states these medications do help her pain symptoms. Her Oneal is [id number]. Its been reviewed and appropriate. Review of Systems: General: No recent weight changes, no fever, no sleep disturbances Respiratory: No cough, no shortness of air, no recurring pulmonary infections Cardiovascular/peripheral vascular: No chest pain, no palpitations, no edema, no shortness of breath Gastrointestinal: No new onset incontinence, normal bowel movements reported Genitourinary: No new onset incontinence Musculoskeletal: Low back pain, right shoulder pain Psychiatric: [Normal mood/affect] Neurological: [Denies weakness in extremities], [denies balance issues] Objective:: Physical Exam: General: Alert and oriented x3, no acute distress, pleasant and cooperative Lungs: Respirations even and unlabored, symmetrical chest expansion Eyes: PERRL Musculoskeletal: Flexion and extension of cervical, lumbar [spine] somewhat guarded secondary to pain, [antalgic gait noted] Neurological: Speech clear, no gross sensory deficit Assessment:: Degenerative joint disease of cervical and lumbar spine with cervical and lumbar radiculopathy symptoms, postlaminectomy syndrome lumbar spine, neck pain, headache, right shoulder pain Plan:: Patient has significant relief following her right shoulder intra-articular injection and does not require any additional injective therapy at this time. I have discussed with the patient that she may benefit from a compounding cream. Patient agrees with this plan of care and I will order this during today's visit. Patient will return to clinic in 1 month for reevaluation of symptoms and follow-up. Patient has been instructed to contact the clinic with any concerns before the next appointment. Dr. Walls has reviewed this note and agrees with this plan of care. This note was dictated using voice recognition software and make contain errors or omissions. [facility] Disclaimer: The information contained in this section may have been updated after the patient was seen, as this information can be updated by other users. Medical History Abnormal EKG Allergies Anxiety and depression Arthritis Asthma Chest pain Clotting disorder COPD (chronic obstructive pulmonary disease) COPD (chronic obstructive pulmonary disease) Diastolic dysfunction DVT (deep venous thrombosis) DVT (deep venous thrombosis) Eustachian tube dysfunction Fatigue Fatigue Fibromyalgia Gallbladder disease GERD (gastroesophageal reflux disease) Granulomatous lung disease Hiatal hernia History of sinus problem HLD (hyperlipidemia) HLD (hyperlipidemia) HTN (hypertension) Hypertension Kidney stones long term (current) use of anticoagulants Lung disease Migraines Pulmonary embolism Pulmonary embolism SOB (shortness of breath) UTI (urinary tract infection) UTI (urinary tract infection) Surgical History (Reviewed 02/03/22 @
[2022-02-10 10:29] VITALS: BP 133/104; PULSE 87; RESP 18; O2SAT 97; BMI 33.3
== END ==
PROVIDERS: PCP Internal Medicine Adolescent Medicine; Visit Provider Nurse Practitioner Family
DX: M51.16 Intervertebral disc disorders with radiculopathy, lumbar region (principal); M50.10 Cervical disc disorder with radiculopathy, unspecified cervical region; M96.1 Postlaminectomy syndrome, not elsewhere classified; R51.9 Headache, unspecified; M25.511 Pain in right shoulder
CPT/HCPCS: 99212; G0463

== ENCOUNTER 2022-02-23 13:46 | Outpatient (CLI) | payer MEDICARE, OTHER, SELFPAY ==
[2022-02-23 14:20] VITALS: BP 156/66; PULSE 87; RESP 18; O2SAT 98
== END 2022-02-23 14:20 | disposition home or self-care (01) ==
LOC: INF 13:47
PROVIDERS: PCP Internal Medicine Adolescent Medicine; Visit Provider Allergy & Immunology
DX: J45.50 Severe persistent asthma, uncomplicated (principal)
CPT/HCPCS: 96372; J2357

== ENCOUNTER → 2022-03-15 12:59 | Outpatient (POV) | payer MEDICARE, OTHER, SELFPAY ==
--- NOTE | 2022-03-15 13:00 | EXP.PAIN.SOA ---
[facility] Pain Management SOAP Note Subjective:: Patient is a pleasant 66-year-old female who presents today for follow-up. We are currently treating the patient for degenerative joint disease of cervical and lumbar spine with cervical and lumbar radiculopathy symptoms, postlaminectomy syndrome lumbar spine, neck pain, headache, right shoulder pain. Patient rates her pain today a 7 out of 10. Patient denies any new trauma or injury. Patient denies any change to location or type of pain she experiences. Patient does state that she is experiencing more low back and sciatic issues that is been going on for over a month. Patient does describe this as a aching, throbbing sensation that is worse with increased activity. Patient is currently managed with Lyrica 150 mg twice daily and lorazepam 0.5 mg twice a day by her primary care provider. Patient denies any side effects from this medication. Patient has tried multiple injections in the past including epidurals and cluneal blocks however she states she did not get significant relief. Patient has also tried and failed spinal cord stimulator therapy and intrathecal pain pump therapy. Patient states she is not interested in any additional injections. Patient denies seeing any neurosurgery however she is not interested in back surgery at this time. Her Oneal is [id number]. Its been reviewed and appropriate. Review of Systems: General: No recent weight changes, no fever, no sleep disturbances Respiratory: No cough, no shortness of air, no recurring pulmonary infections Cardiovascular/peripheral vascular: No chest pain, no palpitations, no edema, no shortness of breath Gastrointestinal: No new onset incontinence, normal bowel movements reported Genitourinary: No new onset incontinence Musculoskeletal: Low back pain Psychiatric: [Normal mood/affect] Neurological: [Denies weakness in extremities], [denies balance issues] Objective:: Physical Exam: General: Alert and oriented x3, no acute distress, pleasant and cooperative Lungs: Respirations even and unlabored, symmetrical chest expansion Eyes: PERRL Musculoskeletal: Flexion and extension of lumbar [spine] somewhat guarded secondary to pain, [antalgic gait noted] Neurological: Speech clear, no gross sensory deficit ORT score updated with low risk Assessment:: degenerative joint disease of cervical and lumbar spine with cervical and lumbar radiculopathy symptoms, postlaminectomy syndrome lumbar spine, neck pain, headache, right shoulder pain, superior cluneal nerve entrapment, sacroiliitis, greater trochanteric bursitis Plan:: Patient continues to experience significant pain in her low back with radiating symptoms. I have discussed with the patient regarding starting a compounding cream. Patient agrees with this plan of care. I will send in the order at today's visit. I have also counseled the patient with her significant history of trying multiple injections along with SCS therapy and intrathecal therapy with no additional improvement that it may be beneficial to follow-up with Dr. Villarreal for her next visit. I have also discussed with the patient that I can send a referral to neurosurgery for second opinion however patient declines at this time. Patient will return to clinic in 1 month for reevaluation of symptoms and plan of care. Patient has been instructed to contact the clinic with any concerns before the next appointment. Dr. Walls has reviewed this note and agrees with this plan of care. This note was dictated using voice recognition software and make contain errors or omissions. [facility] Disclaimer: The information contained in this section may have been updated after the patient was seen, as this information can be updated by other users. Medical History Abnormal EKG Allergies Anxiety and depression Arthritis Asthma Chest pain Clotting disorder COPD (chronic obstructive pulmonary disease) C
--- NOTE | 2022-03-15 13:26 | EXP.PAIN.SOA ---
[facility] Pain Management SOAP Note Subjective:: Patient is a pleasant 66-year-old female who presents today for follow-up. We are currently treating the patient for degenerative disc disease of cervical and lumbar spine with cervical and lumbar radiculopathy symptoms, postlaminectomy syndrome, neck pain, headache, right shoulder pain. Today the patient rates her pain a 4 out of 10. Patient denies any new trauma or injury. Patient denies any change location or type of pain she experiences. Patient previously had a right intra-articular shoulder injection on 01/26/2022 that provided at least 50% improvement and lasted up until this week. Patient does describe her pain as a achy, throbbing sensation that is worse with increased activity. Patient is managed with gabapentin 300 mg 4 times a day and tramadol 50 mg twice a day. Patient states she does take 2 tramadol in the morning with 2 800 mg Tylenol and then repeats this in the evening. Patient denies any side effects from these medications. Patient has also recently been prescribed compounding cream that she stated provided significant improvement of her symptoms. Her Oneal is [id number]. Has been reviewed and appropriate. Review of Systems: General: No recent weight changes, no fever, no sleep disturbances Respiratory: No cough, no shortness of air, no recurring pulmonary infections Cardiovascular/peripheral vascular: No chest pain, no palpitations, no edema, no shortness of breath Gastrointestinal: No new onset incontinence, normal bowel movements reported Genitourinary: No new onset incontinence Musculoskeletal: Right shoulder pain Psychiatric: [Normal mood/affect] Neurological: [Denies weakness in extremities], [denies balance issues] Objective:: Physical Exam: General: Alert and oriented x3, no acute distress, pleasant and cooperative Lungs: Respirations even and unlabored, symmetrical chest expansion Eyes: PERRL Musculoskeletal: Flexion and extension of cervical [spine] somewhat guarded secondary to pain, [antalgic gait noted] Neurological: Speech clear, no gross sensory deficit Assessment:: Degenerative disc disease of cervical and lumbar spine with cervical and lumbar radiculopathy symptoms, postlaminectomy syndrome, neck pain, headache, right shoulder pain Plan:: Patient is experiencing worsening pain in her right shoulder related to osteoarthritis. Patient does have limited range of motion of this joint along with her cervical spine. I have discussed with the patient that she may benefit from repeat intra-articular shoulder injections. Risk and benefits were discussed with the patient. She would like to proceed forward with this plan of care. Patient did get at least 50% improvement from her last intra-articular injection lasting almost 2 months. We will schedule her for a right intra-articular shoulder injection. Patient has been instructed to contact the clinic with any concerns before the next appointment. Dr. Walls has reviewed this note and agrees with this plan of care. This note was dictated using voice recognition software and make contain errors or omissions. [facility] Disclaimer: The information contained in this section may have been updated after the patient was seen, as this information can be updated by other users. 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
[2022-03-15 13:31] VITALS: BP 130/77; PULSE 80; RESP 18; O2SAT 97; BMI 33.3
== END ==
PROVIDERS: PCP Internal Medicine Adolescent Medicine; Visit Provider Nurse Practitioner Family
DX: M50.10 Cervical disc disorder with radiculopathy, unspecified cervical region (principal); M51.16 Intervertebral disc disorders with radiculopathy, lumbar region; M96.1 Postlaminectomy syndrome, not elsewhere classified; R51.9 Headache, unspecified; M25.511 Pain in right shoulder
CPT/HCPCS: 99212; G0463

== ENCOUNTER 2022-03-23 11:31 | Day surgery (SDC) | payer MEDICARE, OTHER, SELFPAY ==
[2022-03-23 11:50] VITALS: BP 108/72; PULSE 67; RESP 18; TEMP 36.7; O2SAT 92; BMI 34.4
[2022-03-23 12:25] VITALS: BP 128/65; PULSE 69; RESP 18; O2SAT 96
--- NOTE | 2022-03-23 12:37 | P.PCN_ITS ---
Procedure Date: 03/23/22 Time: 12:30 Anesthesiologist:: Dustin Jaquez CRNA Complications:: None Pre-procedure Diagnosis:: Osteoarthritis right shoulder Post-procedure Diagnosis:: Same. Indications for Procedure:: Patient is a pleasant 66-year-old female who comes our clinic today for right intra-articular shoulder injection. Patient has been dealing with osteoarthritis in the right shoulder for quite some time. She had it injected a year ago with significant improvement. She has difficulty with range of motion in the right shoulder. Procedure Details:: Procedure Details: Right shoulder intra-articular injection Informed consent was obtained risk and benefits of the procedure were explained to the patient. Patient was taken to the procedure room. The right shoulder was prepped using ChloraPrep. A 25-gauge needle was used first anteriorly, laterally, and then posteriorly to inject 10 mL bupivacaine 0.25% and Depo- Medrol 40 mg. Patient tolerated procedure well with no complications. Plan and Disposition:: Patient was discharged without incident.
== END 2022-03-23 12:25 | disposition home or self-care (01) ==
PROVIDERS: PCP Internal Medicine Adolescent Medicine; Visit Provider Nurse Anesthetist, Certified Registered
DX: M19.011 Primary osteoarthritis, right shoulder (principal)
CPT/HCPCS: 20610; J1040

== ENCOUNTER → 2022-04-09 10:53 | Outpatient (POV) | payer MEDICARE, OTHER, SELFPAY ==
[2022-04-09 11:18] VITALS: BP 152/77; PULSE 85; RESP 18; O2SAT 98; BMI 34.4
--- NOTE | 2022-04-09 11:20 | EXP.PAIN.SOA ---
[facility] Pain Management SOAP Note Subjective:: Patient is a pleasant 66-year-old female who presents today for follow-up of right intra-articular shoulder injection on 03/23/2022. We are currently treating the patient for degenerative disc disease of cervical and lumbar spine with cervical and lumbar radiculopathy symptoms, postlaminectomy syndrome, neck pain, headache, right shoulder pain. Today she states that she has had significant improvement following this injection of upwards of 70%. She states she feels like she has continued to get additional relief. Patient has been able to increase her activity as well as her range of motion in her right shoulder with decreased pain symptoms. Today she does state that her neck pain is more bothersome and rates it a 6 out of 10. Patient describes this as a aching, throbbing sensation that has radiating symptoms into her upper extremities and is worse with increased activity. It does affect her ability to perform activities of daily living such as cooking and cleaning. She is interested in injective therapy for this pain. She is currently managed with gabapentin 300 mg 4 times a day and tramadol 50 mg twice a day from her primary care doctor. Patient does states she continues to take 2 tramadol in the morning with 800 mg Tylenol and then repeats the same dosage at night. Patient denies any side effects from this medication. She is also prescribed compounding cream that provides additional relief. Her Oneal is [id number]. Its been reviewed and appropriate. Review of Systems: General: No recent weight changes, no fever, no sleep disturbances Respiratory: No cough, no shortness of air, no recurring pulmonary infections Cardiovascular/peripheral vascular: No chest pain, no palpitations, no edema, no shortness of breath Gastrointestinal: No new onset incontinence, normal bowel movements reported Genitourinary: No new onset incontinence Musculoskeletal: Neck/upper back pain, arm pain Psychiatric: [Normal mood/affect] Neurological: [Denies weakness in extremities], [denies balance issues] Objective:: Physical Exam: General: Alert and oriented x3, no acute distress, pleasant and cooperative Lungs: Respirations even and unlabored, symmetrical chest expansion Eyes: PERRL Musculoskeletal: Flexion and extension of cervical [spine] somewhat guarded secondary to pain, [antalgic gait noted] Neurological: Speech clear, no gross sensory deficit FINDINGS: Multiplanar MR imaging of the cervical spine was performed without contrast. ? On the sagittal T2-weighted images, significant degenerative signal is seen throughout with moderate disc space narrowing at C5-6, C6-7 and C7-T1.? There is no evidence of fracture.? The vertebral alignment is normal. The cervical spinal cord has an unremarkable appearance without evidence of mass, edema or syrinx.? No significant canal stenosis is identified.? The cervicomedullary junction is normal.? ? C2-3:? There is no significant canal stenosis or neural foraminal narrowing.? C3-4:? There is no significant canal stenosis or neural foraminal narrowing.? C4-5:? There is no significant canal stenosis or neural foraminal narrowing. C5-6:? Moderate diffuse disc bulge with endplate hypertrophy. There is moderate central canal stenosis and moderate bilateral neural foraminal narrowing.? C6-7:? Moderate diffuse disc bulge with endplate hypertrophy.? There is moderate central canal stenosis and moderate bilateral neural foraminal narrowing. C7-T1:? Right posterolateral disc protrusion with moderate right neural foraminal narrowing. IMPRESSION: Diffuse disc bulges at C5-6 and C6-7 with bilateral neural foraminal narrowing.? Right posterolateral disc protrusion at C7-T1 with moderate right neural foraminal narrowing. Reviewed, Interpreted and Dictated by Neftali Sauceda MD Transcribed by Olivia Valdovinos Authenticated and [facility]
== END ==
PROVIDERS: PCP Internal Medicine Adolescent Medicine; Visit Provider Nurse Practitioner Family
DX: M50.123 Cervical disc disorder at C6-C7 level with radiculopathy (principal); M51.16 Intervertebral disc disorders with radiculopathy, lumbar region; M96.1 Postlaminectomy syndrome, not elsewhere classified; M25.511 Pain in right shoulder; R51.9 Headache, unspecified
CPT/HCPCS: 99212; G0463

== ENCOUNTER → 2022-04-16 09:43 | Outpatient (CLI) | payer MEDICARE, OTHER, SELFPAY ==
[2022-04-16 10:33] LABS: INR 1.42 (0.9-1.1)
[2022-04-16 12:17] LABS: 25-OH Vitamin D, Total 35.1 ng/mL (30-100)
== END ==
PROVIDERS: PCP Internal Medicine Adolescent Medicine; Visit Provider Allergy & Immunology
DX: E55.9 Vitamin D deficiency, unspecified (principal); Z51.81 Encounter for therapeutic drug level monitoring; Z79.01 Long term (current) use of anticoagulants
CPT/HCPCS: 36415; 82306; 85610

== ENCOUNTER 2022-04-20 09:43 | Day surgery (SDC) | payer MEDICARE, OTHER, SELFPAY ==
[2022-04-20 10:11] VITALS: BP 141/75; PULSE 69; RESP 18; TEMP 36.4; O2SAT 96; BMI 34.1
[2022-04-20 10:26] LABS: INR 0.91 (0.9-1.1); Prothrombin Time 9.9 seconds (10.1-12.5)
[2022-04-20 11:05] VITALS: BP 128/101; PULSE 66; RESP 18; O2SAT 98
[2022-04-20 11:06] VITALS: BP 128/101; PULSE 66; RESP 18; O2SAT 98
--- NOTE | 2022-04-20 11:10 | P.PCN_ITS ---
Procedure Date: 04/20/22 Time: 11:00 Anesthesiologist:: Dustin Jaquez CRNA Complications:: None Pre-procedure Diagnosis:: Degenerative disc disease cervical spine multilevels. Cervical radiculopathy Post-procedure Diagnosis:: Same. Indications for Procedure:: Is a very pleasant 66-year-old female that presents to our clinic today for cervical epidural steroid injection. Patient complains of posterior cervical neck pain as well as bilateral arm radicular symptoms. She rates her pain 7/10. Procedure Details:: Procedure:Cervical epidural steroid injection Informed consent was obtained and the risks and benefits of the procedure were explained to the patient. The patient was taken to the procedure room and noninvasive monitors placed, including noninvasive blood pressure cuff and pulse oximeter. The neck was prepped using Chloraprep as a cleansing solution. The C6- C7 interspace was viewed using fluroscopy. The skin and subcutaneous tissues were anesthetized using lidocaine 1.5% and a 25-gauge needle. After this an 18- gauge Touhy epidural needle was placed into the C6-C7 interspace under fluroscopy guidance and advanced using loss of resistance to air until the epidural space was encountered. After confirmation of needle placement in the epidural space using contrast dye, a solution containing normal saline, 2 mL and Depo-Medrol 80 mg was incrementally injected into the cervical epidural space.~ The patient tolerated the procedure well with no complications. The patient was observed in the Pain Clinic and then discharged home neurologically intact. Plan and Disposition:: Patient was discharged without incident.
[2022-04-20 11:13] VITALS: BP 139/84; PULSE 58; RESP 18; O2SAT 100
== END 2022-04-20 11:13 | disposition home or self-care (01) ==
PROVIDERS: Nurse Practitioner Family; PCP Internal Medicine Adolescent Medicine; Visit Provider Nurse Anesthetist, Certified Registered
DX: M50.123 Cervical disc disorder at C6-C7 level with radiculopathy (principal); D68.9 Coagulation defect, unspecified
CPT/HCPCS: 36415; 62321; 85610; J1040; Q9966

== ENCOUNTER 2022-05-07 09:57 | Outpatient (CLI) | payer MEDICARE, OTHER, SELFPAY ==
[2022-05-07 14:58] LABS: PHA INR Fingerstick 2.7 (0.9-1.1)
== END 2022-05-07 15:20 ==
PROVIDERS: PCP Internal Medicine Adolescent Medicine; Visit Provider Internal Medicine Adolescent Medicine
DX: Z51.81 Encounter for therapeutic drug level monitoring (principal); Z79.01 Long term (current) use of anticoagulants
CPT/HCPCS: 85610; 99211; G0463

== ENCOUNTER 2022-05-26 10:02 | Outpatient (CLI) | payer MEDICARE, OTHER, SELFPAY ==
[2022-05-26 15:02] LABS: PHA INR Fingerstick 2.5 (0.9-1.1)
== END 2022-05-26 15:45 ==
LOC: ACC 10:03
PROVIDERS: PCP Internal Medicine Adolescent Medicine; Visit Provider Internal Medicine Adolescent Medicine
DX: Z51.81 Encounter for therapeutic drug level monitoring (principal); Z79.01 Long term (current) use of anticoagulants
CPT/HCPCS: 85610; 99211; G0463

== ENCOUNTER 2022-06-08 10:17 | Outpatient (CLI) | payer MEDICARE, OTHER, SELFPAY ==
[2022-06-08 11:10] LABS: PHA INR Fingerstick 2.6 (0.9-1.1)
== END 2022-06-08 11:12 ==
LOC: ACC 10:18
PROVIDERS: PCP Internal Medicine Adolescent Medicine; Visit Provider Internal Medicine Adolescent Medicine
DX: Z51.81 Encounter for therapeutic drug level monitoring (principal); Z79.01 Long term (current) use of anticoagulants
CPT/HCPCS: 85610; 99211; G0463

== ENCOUNTER → 2022-07-07 08:25 | Outpatient (CLI) | payer MEDICARE, OTHER, SELFPAY ==
[2022-07-07 09:29] LABS: Prothrombin Time 26.6 seconds (10.1-12.5)
== END ==
PROVIDERS: PCP Internal Medicine Adolescent Medicine; Visit Provider Internal Medicine Adolescent Medicine
DX: Z51.81 Encounter for therapeutic drug level monitoring (principal); Z79.01 Long term (current) use of anticoagulants
CPT/HCPCS: 36415; 85610

== ENCOUNTER 2022-08-18 11:39 | Outpatient (CLI) | payer MEDICARE, OTHER, SELFPAY ==
[2022-08-18 12:22] LABS: Basophils % 0.6 % (0.1-2.0); Eosinophils # 0.6 K/mm3 (0.0-0.4); Eosinophils % 8.1 % (0.1-12.0); Hematocrit 39.5 % (37.0-47.0); Hemoglobin 12.6 g/dL (12.2-16.2); Lymphocytes # 2.1 K/mm3 (0.7-4.5); Lymphocytes % 28.8 % (10-50); Mean Corpuscular HGB Conc 31.9 g/dL (31.8-35.4); Mean Corpuscular Hemoglobin 30.7 pg (27.0-31.2); Mean Corpuscular Volume 96.4 fl (81-99); Mean Platelet Volume 7.8 fl (7.4-10.4); Monocytes # 0.3 K/mm3 (0.1-1.0); Neutrophils # 4.3 K/mm3 (1.8-7.8); Neutrophils % 58.5 % (37.0-80.0); Platelet Count 319 K/mm3 (142-424); Red Cell Distribution Width 14.6 % (11.5-17.5); White Blood Count 7.4 K/mm3 (4.8-10.8)
[2022-08-18 12:42] LABS: INR 2.87 (0.9-1.1); Prothrombin Time 29.2 seconds (10.1-12.5)
[2022-08-18 12:45] LABS: Chloride 109 mmol/L (98-107); Sodium 139 mmol/L (136-145)
[2022-08-18 12:46] LABS: Potassium 4.5 mmoL/L (3.5-5.1)
[2022-08-18 12:48] LABS: Alanine Aminotransferase 25 U/L (12-78); Anion Gap 12.5 mEq/L (5-15); Aspartate Amino Transferase 31 U/L (14-36); Blood Urea Nitrogen 12 mg/dl (7-17); Carbon Dioxide 22 mmol/L (22.0-30.0); Cholesterol 209 mg/dl (140-200); Estimated Glomerular Filt Rate 84 ml/min (>60); GFR (African American) 102 ML/MIN (>60); Triglycerides 184 mg/dl (30-150); VLDL Cholesterol 37 mg/dL (0-40)
[2022-08-18 12:49] LABS: Albumin/Globulin Ratio 1.4 (1.1-1.8); Alkaline Phosphatase 80 U/L (38-126); Bilirubin,Total 0.5 mg/dl (0.2-1.3); Calcium 8.9 mg/dl (8.4-10.2); Chol/HDL Ratio 3.9 (1-3.5); Globulin 2.9 g/dL (1.3-3.2); Glucose 107 mg/dl (74-100); HDL Cholesterol 54 mg/dl (40-60); Total Protein,Serum 6.9 g/dl (6.3-8.2)
[2022-08-18 13:06] LABS: Direct LDL Cholesterol 116.38 mg/dL (100-129)
== END 2022-08-18 12:10 ==
LOC: ACC 11:40
PROVIDERS: Nurse Practitioner Family; PCP Internal Medicine Adolescent Medicine; Visit Provider Internal Medicine Adolescent Medicine
DX: E78.5 Hyperlipidemia, unspecified (principal); Z86.711 Personal history of pulmonary embolism; E55.9 Vitamin D deficiency, unspecified; Z79.01 Long term (current) use of anticoagulants; Z51.81 Encounter for therapeutic drug level monitoring
CPT/HCPCS: 36415; 80053; 80061; 82306; 85025; 85610; 99211; G0463

== ENCOUNTER → 2022-08-30 12:03 | Outpatient (CLI) | payer MEDICARE, OTHER, SELFPAY ==
--- NOTE | 2022-08-30 12:08 | XR_ITS ---
FINAL REPORT CLINICAL HISTORY: LEFT HIP PAIN FINDINGS: LEFT HIP AND PELVIS SERIES: Two views of the left hip and pelvis demonstrate no acute fracture or dislocation. The joint spaces appear normal. The visualized bony structures are well aligned. No soft tissue abnormality is seen. IMPRESSION: No acute bony abnormality. Reviewed, Interpreted and Dictated by Ronaldo Gaxiola MD Transcribed by Mason Huertas Authenticated and [facility]
== END ==
PROVIDERS: PCP Nurse Practitioner Family; Visit Provider Nurse Practitioner Family
DX: M25.552 Pain in left hip (principal)
CPT/HCPCS: 73502

== ENCOUNTER 2022-09-04 16:25 | Emergency (ER) | payer MEDICARE, OTHER, SELFPAY ==
[2022-09-04] VITALS (8 sets, daily range): BP systolic 142–201; BP diastolic 81–102; PULSE 65–93; RESP 14–22; TEMP 36.6; O2SAT 92–97; BMI 34.2
--- NOTE | 2022-09-04 17:37 | HMH.EDGENADL ---
Discharge Plan Disposition Patient Disposition: Home, Self-Care Condition: Good Prescriptions Prescriptions: New hydroxyzine HCl 50 mg tablet 50 mg PO Q8H PRN (Reason: itching) Qty: 20 0RF levofloxacin 750 mg tablet 750 mg PO DAILY 7 Days Qty: 7 0RF No Action ropinirole 1 mg tablet 1 mg PO HS amitriptyline 50 mg tablet 50 mg PO HS omeprazole 20 mg capsule,delayed release(DR/EC) 20 mg PO DAILY magnesium 250 mg tablet 250 mg PO DAILY tramadol 50 MG tablet 50 mg PO BID montelukast 10 MG tablet 10 mg PO PM fluticasone propionate 9.9 ML spray,suspension 9.9 ml intranasal DAILY cholecalciferol (vitamin D3) 1,000 UNIT capsule 4,000 unit PO DAILY duloxetine 60 MG capsule,delayed release(DR/EC) 60 mg PO BID ondansetron 4 MG tablet,disintegrating 4 mg PO Q8HP PRN (Reason: Nausea) Qty: 20 0RF albuterol sulfate 8.5 GM HFA aerosol inhaler 2 puffs inhalation Q4HP PRN (Reason: Shortness Of Breath Or Wheezing) fluticasone propion-salmeterol 28 PUFF blister with device 1 puff inhalation BID gabapentin 300 MG capsule 300 mg PO TID metaxalone 800 MG tablet 800 mg PO NEEDED PRN (Reason: pain) amlodipine 5 mg tablet See Rx Instructions .ROUTE .COMPLEX Rx Instructions: TAKE 1/2 TABLET BY MOUTH ONCE DAILY FOR BLOOD PRESSURE warfarin 5 mg tablet 7.5 mg PO DAILY Rx Instructions: 5mg on tuesday and tuesday, alternating with 7.5mg all other days aspirin 81 MG tablet,delayed release (DR/EC) 81 mg PO HS levocetirizine 5 MG tablet 5 mg PO HS oxybutynin chloride 5 MG tablet 5 mg PO TID atorvastatin 20 mg tablet 40 mg PO DAILY Referrals Follow up/Referrals: Sandra Lenz APRN [Primary Care Provider] - See instructions Activity Restrictions/Add. Instructions Additional Instructions/Restrictions: You were evaluated in the emergency department today. Please garbage pick up man your prescription at the pharmacy and take as needed for itching. It may cause you to be sleepy, so do not drive or operate heavy machinery after taking this. Follow-up with your primary care provider over the next 3 days. Return to the emergency department for any new or worsening symptoms. Stop taking your Macrobid at home. 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 Clinical Impressions Clinical Impression: Itching Instructions Patient Instructions: DI for Food Allergy, DI for Rash Discharge ED Provider: Mary Anaya General Adult HPI General Chief complaint: Allergic Reaction Stated complaint: itchy arms/legs Time Seen by Provider: 09/04/22 16:30 Mode of Arrival: Ambulatory Source of Information: Patient Limitations: No Limitations Description of Symptoms (Recalled from ER Triage Doc. by RN): pt presents to ED c/o itching t/o bilateral extremities. pt states itching started approx 30 minutes ago. pt states she did start taking Macrobid today. pt denies any difficulty swallowing or SOA. History of Present Illness HPI narrative: This patient is a 66-year-old female who complains of itching to her bilateral lower extremities. She states that she started taking Macrobid today. She reports she has taken it before without issues, but she reports she has multiple antibiotic intolerances secondary to rashes and itching. She denies any oropharyngeal swelling, difficulty breathing, nausea, vomiting, changes in bowel movements, or other concerns. She also denies any other known recent exposures. No one else is having similar symptoms. Related Data Home Medications Medication Instructions Recorded Confirmed cholecalciferol (vitamin D3) 25 4,000 unit PO DAILY Supplement 05/24/17 04/29/22 mcg (1,000 unit) capsule duloxetine 60 mg capsule,delayed 60 mg PO BID Depression 05/24/17 04/29/22 release fluticasone propionate 50 9.9 ml intranasal DAILY allergies 05/24/17 04/29/22 mcg/actuat
[2022-09-04 19:25] LABS: Basophils % 0.2 % (0.1-2.0); Eosinophils # 0.3 K/mm3 (0.0-0.4); Eosinophils % 3.2 % (0.1-12.0); Hematocrit 42.1 % (37.0-47.0); Hemoglobin 13.3 g/dL (12.2-16.2); Lymphocytes # 1.2 K/mm3 (0.7-4.5); Lymphocytes % 11.6 % (10-50); Mean Corpuscular HGB Conc 31.7 g/dL (31.8-35.4); Mean Corpuscular Hemoglobin 30.9 pg (27.0-31.2); Mean Corpuscular Volume 97.3 fl (81-99); Mean Platelet Volume 7.8 fl (7.4-10.4); Monocytes # 0.4 K/mm3 (0.1-1.0); Monocytes % 3.6 % (1.7-9.3); Neutrophils # 8.4 K/mm3 (1.8-7.8); Neutrophils % 81.3 % (37.0-80.0); Platelet Count 286 K/mm3 (142-424); Red Blood Count 4.32 M/mm3 (4.20-5.40); Red Cell Distribution Width 14.9 % (11.5-17.5); White Blood Count 10.4 K/mm3 (4.8-10.8)
[2022-09-04 19:33] LABS: Alanine Aminotransferase 27 U/L (12-78); Albumin Level 4.3 g/dl (3.5-5.0); Albumin/Globulin Ratio 1.3 (1.1-1.8); Alkaline Phosphatase 103 U/L (38-126); Anion Gap 11.9 mEq/L (5-15); Aspartate Amino Transferase 31 U/L (14-36); Bilirubin,Total 0.3 mg/dl (0.2-1.3); Blood Urea Nitrogen 15 mg/dl (7-17); Calcium 9.4 mg/dl (8.4-10.2); Carbon Dioxide 25 mmol/L (22.0-30.0); Chloride 108 mmol/L (98-107); Creatinine Clearance Estimated 83 mL/min (50-200); Estimated Glomerular Filt Rate 72 ml/min (>60); GFR (African American) 87 ML/MIN (>60); Globulin 3.3 g/dL (1.3-3.2); Glucose 88 mg/dl (74-100); Potassium 3.9 mmoL/L (3.5-5.1); Sodium 141 mmol/L (136-145); Total Protein,Serum 7.6 g/dl (6.3-8.2)
== END 2022-09-04 20:32 | disposition home or self-care (01) ==
PROVIDERS: Emergency Provider Emergency Medicine; PCP Nurse Practitioner Family
DX: L29.9 Pruritus, unspecified (principal); F41.9 Anxiety disorder, unspecified; F32.A Depression, unspecified; J44.9 Chronic obstructive pulmonary disease, unspecified; K21.9 Gastro-esophageal reflux disease without esophagitis; E78.5 Hyperlipidemia, unspecified; I10 Essential (primary) hypertension; Z87.891 Personal history of nicotine dependence
CPT/HCPCS: 80053; 85025; 99283

== ENCOUNTER 2022-10-21 16:05 | Emergency (ER) | payer MEDICARE, OTHER, SELFPAY ==
--- NOTE | 2022-10-21 16:21 | EXP.UTC ---
Discharge Plan Disposition Patient Disposition: Home, Self-Care Condition: Good Prescriptions Prescriptions: No Action ropinirole 1 mg tablet 1 mg PO HS amitriptyline 50 mg tablet 50 mg PO HS omeprazole 20 mg capsule,delayed release(DR/EC) 20 mg PO DAILY magnesium 250 mg tablet 250 mg PO DAILY tramadol 50 MG tablet 50 mg PO BID montelukast 10 MG tablet 10 mg PO PM fluticasone propionate 9.9 ML spray,suspension 9.9 ml intranasal DAILY cholecalciferol (vitamin D3) 1,000 UNIT capsule 4,000 unit PO DAILY duloxetine 60 MG capsule,delayed release(DR/EC) 60 mg PO BID ondansetron 4 MG tablet,disintegrating 4 mg PO Q8HP PRN (Reason: Nausea) Qty: 20 0RF albuterol sulfate 8.5 GM HFA aerosol inhaler 2 puffs inhalation Q4HP PRN (Reason: Shortness Of Breath Or Wheezing) fluticasone propion-salmeterol 28 PUFF blister with device 1 puff inhalation BID gabapentin 300 MG capsule 300 mg PO TID metaxalone 800 MG tablet 800 mg PO NEEDED PRN (Reason: pain) amlodipine 5 mg tablet See Rx Instructions .ROUTE .COMPLEX Rx Instructions: TAKE 1/2 TABLET BY MOUTH ONCE DAILY FOR BLOOD PRESSURE hydroxyzine HCl 50 mg tablet 50 mg PO Q8H PRN (Reason: itching) Qty: 20 0RF levofloxacin 750 mg tablet 750 mg PO DAILY 7 Days Qty: 7 0RF warfarin 5 mg tablet 7.5 mg PO DAILY Rx Instructions: 5mg on tuesday and tuesday, alternating with 7.5mg all other days aspirin 81 MG tablet,delayed release (DR/EC) 81 mg PO HS levocetirizine 5 MG tablet 5 mg PO HS oxybutynin chloride 5 MG tablet 5 mg PO TID atorvastatin 20 mg tablet 40 mg PO DAILY Referrals Follow up/Referrals: Sandra Lenz APRN [Primary Care Provider] - See instructions Discharge ED Provider: Renan Wilkerson [facility] [place] H[place] General Stated complaint: congestion,HOOVER Time Seen by Provider: 10/21/22 16:20 History of Present Illness Provider Complaint: She states that for the past 4 days she has had sinus congestion, ear pain and sinus drainage. Related Data Home Medications Medication Instructions Recorded Confirmed cholecalciferol (vitamin D3) 25 4,000 unit PO DAILY Supplement 05/24/17 04/29/22 mcg (1,000 unit) capsule duloxetine 60 mg capsule,delayed 60 mg PO BID Depression 05/24/17 04/29/22 release fluticasone propionate 50 9.9 ml intranasal DAILY allergies 05/24/17 04/29/22 mcg/actuation nasal spray,suspension montelukast 10 mg tablet 10 mg PO PM Asthma 05/24/17 04/29/22 tramadol 50 mg tablet 50 mg PO BID Pain 05/24/17 04/29/22 aspirin 81 mg tablet,delayed 81 mg PO HS Blood thinner 12/19/18 04/29/22 release levocetirizine 5 mg tablet 5 mg PO HS Allergy symptoms 12/19/18 04/29/22 oxybutynin chloride 5 mg tablet 5 mg PO TID overactive bladder 12/19/18 04/29/22 atorvastatin 20 mg tablet 40 mg PO DAILY Cholesterol 04/03/19 04/29/22 albuterol sulfate 90 mcg/actuation 2 puffs inhalation Q4HP PRN 04/10/19 04/29/22 aerosol inhaler Shortness Of Breath Or Wheezing fluticasone 500 mcg-salmeterol 50 1 puff inhalation BID COPD 03/25/20 04/29/22 mcg/dose blistr powdr for inhalation magnesium 250 mg tablet 250 mg PO DAILY Supplement 04/30/20 04/29/22 gabapentin 300 mg capsule 300 mg PO TID nerve pain 04/28/21 04/29/22 metaxalone 800 mg tablet 800 mg PO NEEDED PRN pain 04/28/21 04/29/22 warfarin 5 mg tablet 7.5 mg PO DAILY BLOOD CLOTS 04/29/21 04/29/22 amlodipine 5 mg tablet See Rx Instructions .Route 04/09/22 04/29/22 .COMPLEX BLOOD PRESSURE amitriptyline 50 mg tablet 50 mg PO HS 04/29/22 04/29/22 omeprazole 20 mg capsule,delayed 20 mg PO DAILY 04/29/22 04/29/22 release ropinirole 1 mg tablet 1 mg PO HS 04/29/22 04/29/22 Previous Rx's Medication Instructions Recorded ondansetron 4 mg disintegrating 4 mg PO Q8HP PRN Nausea ##20 02/07/19 tablet hydroxyzine HCl 50 mg tablet 50 mg PO Q8H PRN itching #20 tabs 09/04/22
[2022-10-21 16:25] VITALS: BP 177/87; PULSE 75; RESP 18; TEMP 36.8; O2SAT 96; BMI 32.9
[2022-10-21 17:33] VITALS: BP 177/87; PULSE 75; RESP 18; TEMP 36.8; O2SAT 96
== END 2022-10-21 17:10 | disposition home or self-care (01) ==
PROVIDERS: Emergency Provider Nurse Practitioner Family; PCP Nurse Practitioner Family
DX: J01.90 Acute sinusitis, unspecified (principal); H92.03 Otalgia, bilateral; J44.9 Chronic obstructive pulmonary disease, unspecified; K21.9 Gastro-esophageal reflux disease without esophagitis; I10 Essential (primary) hypertension; E78.5 Hyperlipidemia, unspecified; Z79.01 Long term (current) use of anticoagulants; Z86.718 Personal history of other venous thrombosis and embolism; Z87.891 Personal history of nicotine dependence
CPT/HCPCS: 96372; 99212; 99214; G0463

== ENCOUNTER 2022-10-26 11:11 | Outpatient (CLI) | payer MEDICARE, OTHER, SELFPAY ==
[2022-10-26 13:14] LABS: PHA INR Fingerstick 2.2 (0.9-1.1)
== END 2022-10-26 13:57 ==
LOC: ACC 11:12
PROVIDERS: PCP Nurse Practitioner Family; Visit Provider Internal Medicine Adolescent Medicine
DX: Z79.01 Long term (current) use of anticoagulants (principal); Z51.81 Encounter for therapeutic drug level monitoring
CPT/HCPCS: 85610; 99211; G0463

== ENCOUNTER → 2022-11-01 10:01 | Outpatient (POV) | payer MEDICARE, OTHER, SELFPAY ==
--- NOTE | 2022-11-01 10:52 | EXP.PAIN.SOA ---
[facility] Pain Management SOAP Note Subjective:: Patient is a pleasant 67-year-old female who presents today for follow-up. We are currently treating the patient for degenerative disc disease of cervical spine multilevels with cervical radiculopathy symptoms, right shoulder pain. Today she rates her pain a 5 out of 10. Patient denies any new trauma injury. She denies any change to location or type of pain she experiences. Patient does state that she has been trying to do more physical therapy for her right shoulder however this is caused significant worsening pain. Patient states that it is an aching, throbbing sensation that is worse with increased activity. Patient does state that she had to take a break from the physical therapy due to the worsening pain symptoms. She states the pain makes it impossible to do activities using her right shoulder and even washing her hair is difficult. Patient does state that it causes inability to perform activities of daily living such as cooking or cleaning. She has had previous injections in her right shoulder that did provide significant improvement. She is interested in repeating this injection. She is currently managed with tramadol 50 mg twice a day and gabapentin 300 mg 4 times a day from her primary care doctor. Her Oneal is [id number]. Its been reviewed and appropriate. Review of Systems: General: No recent weight changes, no fever, no sleep disturbances Respiratory: No cough, no shortness of air, no recurring pulmonary infections Cardiovascular/peripheral vascular: No chest pain, no palpitations, no edema, no shortness of breath Gastrointestinal: No new onset incontinence, normal bowel movements reported Genitourinary: No new onset incontinence Musculoskeletal: Right shoulder pain Psychiatric: [Normal mood/affect] Neurological: [Denies weakness in extremities], [denies balance issues] Objective:: Physical Exam: General: Alert and oriented x3, no acute distress, pleasant and cooperative Lungs: Respirations even and unlabored, symmetrical chest expansion Eyes: PERRL Musculoskeletal: Flexion and extension of right shoulder somewhat guarded secondary to pain Neurological: Speech clear, no gross sensory deficit Assessment:: Degenerative disc disease of cervical spine multilevels with cervical radiculopathy symptoms, right shoulder pain/osteoarthritis Plan:: Patient is experiencing worsening pain in her right shoulder with limited range of motion. I have discussed with patient that she may benefit from an intra-articular shoulder injection. Risk and benefits were discussed with the patient and she would like to proceed forward with this plan of care. Patient will be scheduled for a right shoulder intra-articular injection. Patient has been instructed to contact the clinic with any concerns before the next appointment. Dr. Walls has reviewed this note and agrees with this plan of care. This note was dictated using voice recognition software and make contain errors or omissions. [facility] Disclaimer: The information contained in this section may have been updated after the patient was seen, as this information can be updated by other users. 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
[2022-11-01 13:30] VITALS: BP 167/86; PULSE 82; RESP 18; O2SAT 96; BMI 33.3
== END ==
PROVIDERS: PCP Nurse Practitioner Family; Visit Provider Nurse Practitioner Family
DX: M50.10 Cervical disc disorder with radiculopathy, unspecified cervical region (principal); M19.011 Primary osteoarthritis, right shoulder; M25.511 Pain in right shoulder
CPT/HCPCS: 99212; G0463

== ENCOUNTER 2022-11-16 08:17 | Day surgery (SDC) | payer MEDICARE, OTHER, SELFPAY ==
--- OUTSIDE RECORDS SUMMARY | 2022-11-16 08:20 | XMS_ITS | Clinical Summary ---
Author Name Unknown Address [address] [place] [address] Phone Organization [facility] , [facility] Address [address] [place] [address] Phone Care Team Providers Care Cooling Room Attendant Name Role Phone JOVI JIMENES, АНДРЕЙ Primary Care Provider [phone] Tony JIMENES, Cristiano York Unavailable [phone] Reason for Visit and Chief Complaint HOOVER Injection Problems Includes: Problems addressed during this encounter and other active Problems All Visits Onset Date Resolved Date Provider Condition S tatus Joint Pain, Localized in the Right Shoulder 09/21/2021 Morris Madrid PA-C Active Plan of Treatment No Plan of Treatment Recorded Assessments Includes: Assessments from this encounter No Assessments Recorded Medical Equipment - Implanted Devices Includes: Current Devices No Medical Equipment Recorded Medications Includes: Medications discussed during this encounter and other current Medications Current Medications (continue as prescribed) rOPINIRole HCl 1 MG Oral Tablet 11/19/2021 Provider: АНДРЕЙ ESPANA MD Diagnosis:
--- OUTSIDE RECORDS SUMMARY | 2022-11-16 08:20 | XMS_ITS | Clinical Summary ---
Author Name Unknown Address [address] [place] [address] Phone Organization [facility] , [facility] Address [address] [place] [address] Phone Care Team Providers Care Administrative Associate Name Role Phone JOVI JIMENES, АНДРЕЙ Primary Care Provider [phone] Tony JIMENES, Cristiano York Unavailable [phone] [...]
--- OUTSIDE RECORDS SUMMARY | 2022-11-16 08:20 | XMS_ITS | Clinical Summary ---
Author Name Unknown Address [address] [place] [address] Phone Organization [facility] , [facility] Address [address] [place] [address] Phone Care Team Providers Care Copy Chief Name Role Phone JOVI JIMENES, АНДРЕЙ Primary Care Provider [phone] Tony JIMENES, Cristiano York Unavailable [phone] [...]
--- OUTSIDE RECORDS SUMMARY | 2022-11-16 08:20 | XMS_ITS | Clinical Summary ---
Author Name Unknown Address [address] [place] [address] Phone Organization [facility] , [facility] Address [address] [place] [address] Phone Care Team Providers Care Billing Assistant Name Role Phone JOVI JIMENES, АНДРЕЙ Primary Care Provider [phone] Tony JIMENES, Cristiano York Unavailable [phone] [...]
--- OUTSIDE RECORDS SUMMARY | 2022-11-16 08:20 | XMS_ITS ---
Care Plan - [facility] Created on: November 16, 2022 Ebonie Blue : 1955 Sex: Female Author Name Unknown Address [address] [place] [address] Phone Organization [facility] Address [address] [place] [address] Phone Care Team Providers Care Moisture Meter Reader Name Role Phone JOVI JIMENES, АНДРЕЙ Primary Care Provider [phone] Tony JIMENES, Cristiano York [facility] [phone]
--- OUTSIDE RECORDS SUMMARY | 2022-11-16 08:20 | XMS_ITS ---
Author Name Unknown Address [address] [place] [place] [address] Phone Organization [facility], [facility] Address [address] [place] [place] [address] Phone Care Team Providers Care Electronic News Gathering Camera Person Name Role Phone АНДРЕЙ ESPANA MD Primary Care Provider [phone] Tony JIMENES, Cristiano York Unavailable [phone] Reason for Referral Date Encounter Description Provider Reason for Referral 12/28/21 Follow Up Rock Toribio MD Refe rral To Physician 11/20/21 Follow Up Chiquita Holguin PA-C Refe rral To Physician 09/23/21 IN HOUSE REFERRAL Rock Toribio MD Referral To Physician 09/16/21 HOOVER Injection Elvira Yanez PA-C Referra l To Physician 09/09/21 HOOVER Injection Elvira Yanez PA-C Referra l To Physician 09/02/21 HOOVER Injection Elvira Yanez PA-C Referra l To Physician 08/26/21 HOOVER Injection Elvira Yanez PA-C Referra l To Physician; Referral To Physician - see pcp for BP 10/01/20 Ortho [facility]isc Cristiano Jimenez MD Refer ral To Physician - see pcp for bp 09/24/20 Ortho Visc Cristiano Jimenez MD Refer ral To Physician - see pcp for bp 09/17/20 Jhonathan Jimenez MD Refer ral To Physician - see pcp for bp 11/12/19 Jhonathan Jimenez MD Refer ral To Physici
--- OUTSIDE RECORDS SUMMARY | 2022-11-16 08:21 | XMS_ITS | Clinical Summary ---
Author Name Unknown Address [address] [place] [address] Phone Organization [facility] , [facility] Address [address] [place] [address] Phone Care Team Providers Care Trading Floor Operator Name Role Phone JOVI JIMENES, АНДРЕЙ Primary Care Provider [phone] Tony JIMENES, Cristiano Jaylen Unavailable [phone] Reason for Referral Date Encounter Description Provider Reason for Referral 12/28/21 Follow Up Rock Toribio MD Refe rral To Physician Reason for Visit and Chief Complaint The Chief Complaint is: Right shoulder pain Problems Includes: Problems addressed during this encounter and other active Problems All Visits Onset Date Resolved Date Provider Condition S tatus Joint Pain, Localized in the Right Shoulder 09/21/2021 Morris Madrid PA-C Active Plan of Treatment SURGICAL PLAN: I reviewed the MRI images again with the patient. I also reviewed the aspiration results with the patient which were negative for infection. There is a lot of inflammation in the joint. I would like for her to get a rheumatologic work up. This patient has exhausted 12 weeks of conservative treatment. Conservative measures have included rest, activity modification, oral
[2022-11-16 08:23] VITALS: BP 170/83; PULSE 71; RESP 18; O2SAT 98; BMI 33.3
[2022-11-16 08:53] VITALS: BP 170/83; PULSE 71; RESP 18; O2SAT 98
--- NOTE | 2022-11-16 09:08 | P.PCN_ITS ---
Procedure Date: 11/16/22 Time: 09:05 Anesthesiologist:: Dustin Jaquez CRNA Complications:: None Pre-procedure Diagnosis:: Osteoarthritis right shoulder. Degenerative joint disease right shoulder. Chronic right shoulder pain. Post-procedure Diagnosis:: Same. Indications for Procedure:: Patient is a very pleasant 67-year-old female that comes our clinic today for intra-articular right shoulder joint injection. Patient has 5/5 strength in the right arm. However, patient has limited range of motion secondary to pain in the right shoulder joint. She rates her pain 7/10. Procedure Details:: Procedure Details: Right shoulder intra-articular injection Informed consent was obtained risk and benefits of the procedure were explained to the patient. Patient was taken to the procedure room. The right shoulder was prepped using ChloraPrep. A 25-gauge needle was used first anteriorly, laterally, and then posteriorly to inject 10 mL bupivacaine 0.25% and Depo- Medrol 40 mg. Patient tolerated procedure well with no complications. Plan and Disposition:: Patient was discharged without incident.
== END 2022-11-16 08:53 | disposition home or self-care (01) ==
PROVIDERS: PCP Nurse Practitioner Family; Visit Provider Nurse Anesthetist, Certified Registered
DX: M19.011 Primary osteoarthritis, right shoulder (principal); M25.511 Pain in right shoulder; G89.29 Other chronic pain
CPT/HCPCS: 20610

== ENCOUNTER → 2022-12-07 11:13 | Outpatient (CLI) | payer MEDICARE, OTHER, SELFPAY ==
[2022-12-07 11:55] LABS: PHA INR Fingerstick 3.9 (0.9-1.1)
== END ==
PROVIDERS: PCP Nurse Practitioner Family; Visit Provider Internal Medicine Adolescent Medicine
DX: Z79.01 Long term (current) use of anticoagulants (principal); Z51.81 Encounter for therapeutic drug level monitoring
CPT/HCPCS: 85610; 99211; G0463

== ENCOUNTER → 2022-12-13 08:45 | Outpatient (POV) | payer MEDICARE, OTHER, SELFPAY ==
[2022-12-13 09:07] VITALS: BP 148/89; PULSE 74; RESP 18; O2SAT 95; BMI 33.3
--- NOTE | 2022-12-13 09:10 | EXP.PAIN.SOA ---
[facility] Pain Management SOAP Note Subjective:: Patient is a pleasant 67-year-old female who presents today for follow-up of a right intra-articular shoulder injection on 11/16/2022. We are currently treating the patient for degenerative disc disease of cervical spine with cervical radiculopathy symptoms, right shoulder pain/osteoarthritis. Today she rates her pain a 1 out of 10. Patient states that she has had at least 95% improvement following her injection. She states she has been able to increase her activity with decreased pain symptoms. Even her sleeping has improved. She does states she also has improved range of motion. Patient is currently managed with tramadol 50 mg twice a day and gabapentin 300 mg 4 times a day from her PCP. She denies any side effects from these medications. Her Oneal has been reviewed and is appropriate. Review of Systems: General: No recent weight changes, no fever, no sleep disturbances Respiratory: No cough, no shortness of air, no recurring pulmonary infections Cardiovascular/peripheral vascular: No chest pain, no palpitations, no edema, no shortness of breath Gastrointestinal: No new onset incontinence, normal bowel movements reported Genitourinary: No new onset incontinence Musculoskeletal: Right shoulder pain Psychiatric: [Normal mood/affect] Neurological: [Denies weakness in extremities], [denies balance issues] Objective:: Physical Exam: General: Alert and oriented x3, no acute distress, pleasant and cooperative Lungs: Respirations even and unlabored, symmetrical chest expansion Eyes: PERRL Musculoskeletal: Flexion and extension of cervical [spine] somewhat guarded secondary to pain, [antalgic gait noted] Neurological: Speech clear, no gross sensory deficit Assessment:: Degenerative disc disease of cervical spine with cervical radiculopathy symptoms, right shoulder pain/osteoarthritis Plan:: Patient has had significant improvement following her intra-articular shoulder injection and does not require any additional injective therapy. Patient will return to clinic in 1 month for reevaluation of symptoms and plan of care. Patient has been instructed to contact the clinic with any concerns before the next appointment. Dr. Walls has reviewed this note and agrees with this plan of care. This note was dictated using voice recognition software and make contain errors or omissions. [facility] Disclaimer: The information contained in this section may have been updated after the patient was seen, as this information can be updated by other users. 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 Lung disease Migraines Pulmonary embolism Pulmonary embolism SOB (shortness of breath) UTI (urinary tract infection) UTI (urinary tract infection) Surgical History H/O cardiac catheterization H/O left breast biopsy H/O sinus surgery H/O total hysterectomy History of bilateral carpal tunnel release History of colonoscopy History of esophagogastroduodenoscopy (EGD) History of tonsillectomy Hx of appendectomy Hx of cholecystectomy Previous back surgery x2 Family History Other Family history of alcoholism Family history of asthma Family history of bleeding disorder Family history of cancer Family history of
== END ==
PROVIDERS: PCP Internal Medicine Adolescent Medicine; Visit Provider Nurse Practitioner Family
DX: M50.10 Cervical disc disorder with radiculopathy, unspecified cervical region (principal); M19.011 Primary osteoarthritis, right shoulder; M25.511 Pain in right shoulder
CPT/HCPCS: 99212; G0463

== ENCOUNTER 2022-12-21 11:12 | Outpatient (CLI) | payer MEDICARE, OTHER, SELFPAY ==
[2022-12-21 15:34] LABS: PHA INR Fingerstick 2.9 (0.9-1.1)
== END 2022-12-21 15:40 ==
LOC: ACC 11:13
PROVIDERS: PCP Internal Medicine Adolescent Medicine; Visit Provider Internal Medicine Adolescent Medicine
DX: Z79.01 Long term (current) use of anticoagulants (principal); Z51.81 Encounter for therapeutic drug level monitoring
CPT/HCPCS: 85610; 99211; G0463

== ENCOUNTER → 2023-01-10 12:54 | Outpatient (POV) | payer MEDICARE, OTHER, SELFPAY ==
--- NOTE | 2023-01-10 13:07 | EXP.PAIN.SOA ---
[facility] Pain Management SOAP Note Subjective:: Patient is a pleasant 67-year-old female who presents today for follow-up. We are currently treating the patient for degenerative disc disease of cervical spine with cervical radiculopathy symptoms, right shoulder pain/osteoarthritis. Today she rates her pain a 5 out of 10. Patient states her pain is all in her right shoulder as well as her bilateral knees. Patient states that she was getting continued relief from her last intra-articular injection up until about the last week or so. Patient does describe this is an aching, throbbing sensation that is worse with increased activity or ambulation. Patient has limited range of motion due to the pain and it does interfere with her ability to perform activities of daily living such as cooking and cleaning. Patient did previously have 95% relief following this injection. She is interested in repeating it. Patient does state that her knees are [id number] and that she has had gel injections however they did not work as well as they have in the past. Patient denies any intra-articular injections. Patient is currently managed with tramadol 50 mg twice a day and gabapentin 300 mg 4 times a day from her PCP. Patient denies any side effects from this medication. Her Oneal has been reviewed and is appropriate. Review of Systems: General: No recent weight changes, no fever, no sleep disturbances Respiratory: No cough, no shortness of air, no recurring pulmonary infections Cardiovascular/peripheral vascular: No chest pain, no palpitations, no edema, no shortness of breath Gastrointestinal: No new onset incontinence, normal bowel movements reported Genitourinary: No new onset incontinence Musculoskeletal: Right shoulder pain Psychiatric: [Normal mood/affect] Neurological: [Denies weakness in extremities], [denies balance issues] Objective:: Physical Exam: General: Alert and oriented x3, no acute distress, pleasant and cooperative Lungs: Respirations even and unlabored, symmetrical chest expansion Eyes: PERRL Musculoskeletal: Flexion and extension of right shoulder somewhat guarded secondary to pain, [antalgic gait noted] Neurological: Speech clear, no gross sensory deficit Assessment:: Degenerative disc disease of cervical spine with cervical radiculopathy symptoms, right shoulder pain/osteoarthritis, bilateral knee pain Plan:: Patient is experiencing worsening pain in her right shoulder with limited range of motion. I have discussed with the patient that she may benefit from a repeat intra-articular shoulder injection. Patient did previously have 95% improvement with her last intra-articular injection lasting almost 2 months. Risk and benefits were discussed with the patient and she would like to proceed forward with this plan of care. I have also discussed with the patient in future she may benefit from intra-articular knee injections. We will follow-up with this at future visits. Patient will be scheduled for a right intra-articular injection. Patient has been instructed to contact the clinic with any concerns before the next appointment. Dr. Walls has reviewed this note and agrees with this plan of care. This note was dictated using voice recognition software and make contain errors or omissions. [facility] Disclaimer: The information contained in this section may have been updated after the patient was seen, as this information can be updated by other users. Medical History Abnormal EKG Allergies Anxiety and depression Arthritis Asthma Chest pain Clotting disorder COPD (chronic obstructive pulmonary disease) COPD (chronic obstructive pulmonary disease) Diastolic dysfunction DVT (deep venous thrombosis) DVT (deep venous thrombosis) Eustachian tube dysfunction Fatigue Fatigue Fibromyalgia Gallbladder disease GERD (gastroesophageal reflux disease) Granulomatous lung disease Hiatal hernia History
[2023-01-10 13:24] VITALS: BP 154/84; PULSE 79; RESP 18; O2SAT 99; BMI 34.4
== END ==
PROVIDERS: PCP Nurse Practitioner Family; Visit Provider Nurse Practitioner Family
DX: M50.10 Cervical disc disorder with radiculopathy, unspecified cervical region (principal); M19.011 Primary osteoarthritis, right shoulder; M25.511 Pain in right shoulder; M25.561 Pain in right knee; M25.562 Pain in left knee
CPT/HCPCS: 99212; G0463

== ENCOUNTER 2023-01-21 08:54 | Day surgery (SDC) | payer MEDICARE, OTHER, SELFPAY ==
[2023-01-21 08:55] VITALS: BP 152/86; PULSE 69; RESP 16; TEMP 36.2; O2SAT 96; BMI 34.1
[2023-01-21 09:03] VITALS: BP 151/88; PULSE 68; O2SAT 95
[2023-01-21 09:08] VITALS: BP 151/88; PULSE 67; O2SAT 96
[2023-01-21 09:10] VITALS: BP 155/77; PULSE 63; RESP 16; O2SAT 96
--- NOTE | 2023-01-21 09:14 | P.PCN_ITS ---
Procedure Date: 01/21/23 Time: 09:00 Anesthesiologist:: Dustin Jaquez CRNA Complications:: None Pre-procedure Diagnosis:: DJD right shoulder. Chronic right shoulder pain. Post-procedure Diagnosis:: Same. Indications for Procedure:: Patient is a very pleasant 67-year-old female comes our clinic today for intra- articular right shoulder injection. Patient had significant improvement in terms of her right shoulder pain with previous intra-articular injection. Patient patient has 5/5 strength in the right arm. However, patient has limited range of motion secondary to right shoulder pain. Procedure Details:: Procedure Details: Right shoulder intra-articular injection Informed consent was obtained risk and benefits of the procedure were explained to the patient. Patient was taken to the procedure room. The right shoulder was prepped using ChloraPrep. A 25-gauge needle was used first anteriorly, laterally, and then posteriorly to inject 10 mL bupivacaine 0.25% and Depo- Medrol 40 mg. Patient tolerated procedure well with no complications. Plan and Disposition:: Patient was discharged without incident.
== END 2023-01-21 09:10 | disposition home or self-care (01) ==
PROVIDERS: PCP Nurse Practitioner Family; Visit Provider Nurse Anesthetist, Certified Registered
DX: M19.011 Primary osteoarthritis, right shoulder (principal); M25.511 Pain in right shoulder; G89.29 Other chronic pain
CPT/HCPCS: 20610; J1040

== ENCOUNTER 2023-01-25 11:35 | Outpatient (CLI) | payer MEDICARE, OTHER, SELFPAY ==
[2023-01-25 13:51] LABS: PHA INR Fingerstick 2.3 (0.9-1.1)
== END 2023-01-25 14:31 ==
LOC: ACC 11:36
PROVIDERS: PCP Internal Medicine Adolescent Medicine; Visit Provider Internal Medicine Adolescent Medicine
DX: Z79.01 Long term (current) use of anticoagulants (principal); Z51.81 Encounter for therapeutic drug level monitoring
CPT/HCPCS: 85610; 99211; G0463

== ENCOUNTER 2023-02-14 10:01 | Outpatient (CLI) | payer MEDICARE, OTHER, SELFPAY ==
[2023-02-14 11:04] LABS: INR 0.94 (0.9-1.1); Prothrombin Time 10.2 seconds (10.1-12.5)
[2023-02-14 11:48] LABS: 25-OH Vitamin D, Total 55.2 ng/mL (30-100)
== END 2023-02-14 23:59 ==
LOC: LAB 10:02
PROVIDERS: Internal Medicine Adolescent Medicine; PCP Nurse Practitioner Family; Visit Provider Allergy & Immunology
DX: E55.9 Vitamin D deficiency, unspecified; Z51.81 Encounter for therapeutic drug level monitoring; Z79.01 Long term (current) use of anticoagulants
CPT/HCPCS: 36415; 82306; 85610

== ENCOUNTER → 2023-02-17 13:16 | Outpatient (POV) | payer MEDICARE, OTHER, SELFPAY ==
--- NOTE | 2023-02-17 13:56 | EXP.PAIN.SOA ---
[facility] Pain Management SOAP Note Subjective:: Patient is a pleasant 67-year-old female who presents today for follow-up of right intra-articular shoulder injection on 01/21/2023. We are currently treating the patient for degenerative disc disease of cervical spine with cervical radiculopathy symptoms, right shoulder pain/osteoarthritis. Today she rates her pain a 5 out of 10. Patient states she has had at least 80% improvement following this injection and feels like it still continuing to provide additional relief. Patient states she has been able to increase her activity with decreased pain symptoms and overall feels more functional. She does state that she will occasionally have pain in the shoulder however it depends on her positioning. Patient does state a lot of her pain today is more related to her knees and that she may want to do injections into these joints in the future. Patient denies any previous replacements and states she has had the gel injections however they did not work as well as they have in the past. Patient is currently managed with tramadol 50 mg twice a day and gabapentin 300 mg 4 times a day from her PCP. She denies any side effects from these medications. Her Oneal has been reviewed and is appropriate. Review of Systems: General: No recent weight changes, no fever, no sleep disturbances Respiratory: No cough, no shortness of air, no recurring pulmonary infections Cardiovascular/peripheral vascular: No chest pain, no palpitations, no edema, no shortness of breath Gastrointestinal: No new onset incontinence, normal bowel movements reported Genitourinary: No new onset incontinence Musculoskeletal: Bilateral knee pain Psychiatric: [Normal mood/affect] Neurological: [Denies weakness in extremities], [denies balance issues] Objective:: Physical Exam: General: Alert and oriented x3, no acute distress, pleasant and cooperative Lungs: Respirations even and unlabored, symmetrical chest expansion Eyes: PERRL Musculoskeletal: Flexion and extension of bilateral knees somewhat guarded secondary to pain, [antalgic gait noted] Neurological: Speech clear, no gross sensory deficit Assessment:: Degenerative disc disease of cervical spine with cervical radiculopathy symptoms, right shoulder pain/osteoarthritis, bilateral knee pain Plan:: Patient has had significant improvement in her right shoulder symptoms following her intra-articular injection and does not require any additional injection therapy at this site. I have discussed with the patient in future she may benefit from injections such as intra-articular or genicular nerve blocks. We will follow-up with this at her next visit. Patient will return to clinic in 1 month for reevaluation of symptoms and plan of care. Patient has been instructed to contact the clinic with any concerns before the next appointment. Dr. Walls has reviewed this note and agrees with this plan of care. This note was dictated using voice recognition software and make contain errors or omissions. [facility] Disclaimer: The information contained in this section may have been updated after the patient was seen, as this information can be updated by other users. Medical History Abnormal EKG Allergies Anxiety and depression Arthritis Asthma Chest pain Clotting disorder COPD (chronic obstructive pulmonary disease) COPD (chronic obstructive pulmonary disease) Diastolic dysfunction DVT (deep venous thrombosis) DVT (deep venous thrombosis) Eustachian tube dysfunction Fatigue Fatigue Fibromyalgia Gallbladder disease GERD (gastroesophageal reflux disease) Granulomatous lung disease Hiatal hernia History of sinus problem HLD (hyperlipidemia) HLD (hyperlipidemia) HTN (hypertension) Hypertension Kidney stones retirement (current) use of anticoagulants Lung disease Migraines Pulmonary embolism Pulmonary embolism SOB (shortness of breath) UTI (urinary tract infection) UTI (urinary tract infection) Surgical History H/O cardiac catheterization H/O left breast biopsy H/O sinus surgery H/O total hysterectomy History of bilateral carpal tunnel release History of colonoscopy History of esophagogastroduodenoscopy (EGD) History of tonsillectomy Hx of appendectomy Hx of cholecystectomy Previous back surgery x2 Family History Other Family history of alcoholism Family history of asthma Family history of bleeding disorder Family history of cancer Family history of diabetes mellitus (DM) Family history of hyperlipidemia Family history of hypertension Family history of myocardial infarction Family history of stroke Family history of substance abuse Social History Smoking Status: Former smoker tobacco type: cigarettes packs per day: 1 second hand exposure: No alcohol intake: current substance use type: denies use current occupational status: retired Travel in the last 8 weeks: None household members: spouse housing: house current occupational exposures/hazards: Yes caffeine: Yes
[2023-02-17 14:11] VITALS: BP 113/74; PULSE 65; RESP 18; O2SAT 96; BMI 33.9
== END ==
LOC: SC.PAIN 13:17
PROVIDERS: PCP Internal Medicine Adolescent Medicine; Visit Provider Nurse Practitioner Family
DX: M50.10 Cervical disc disorder with radiculopathy, unspecified cervical region (principal); M19.011 Primary osteoarthritis, right shoulder; M25.511 Pain in right shoulder; M25.561 Pain in right knee; M25.562 Pain in left knee
CPT/HCPCS: 99212; G0463

== ENCOUNTER 2023-02-17 17:25 | Emergency (ER) | payer MEDICARE, OTHER, SELFPAY ==
[2023-02-17 18:55] VITALS: BP 164/81; PULSE 66; RESP 21; TEMP 36.9; O2SAT 94; BMI 33.9
--- NOTE | 2023-02-17 19:15 | ED_ITS ---
Discharge Plan Disposition Patient Disposition: Home, Self-Care Condition: Good Prescriptions Prescriptions: New levofloxacin 500 mg tablet 500 mg PO DAILY 5 Days Qty: 5 0RF phenazopyridine [Pyridium] 200 mg tablet 200 mg PO Q8H 2 Days Qty: 6 0RF No Action ropinirole 1 mg tablet 1 mg PO HS amitriptyline 50 mg tablet 50 mg PO HS omeprazole 20 mg capsule,delayed release(DR/EC) 20 mg PO DAILY magnesium 250 mg tablet 250 mg PO DAILY tramadol 50 MG tablet 50 mg PO BID montelukast 10 MG tablet 10 mg PO PM fluticasone propionate 9.9 ML spray,suspension 9.9 ml intranasal DAILY cholecalciferol (vitamin D3) 1,000 UNIT capsule 4,000 unit PO DAILY duloxetine 60 MG capsule,delayed release(DR/EC) 60 mg PO BID ondansetron 4 MG tablet,disintegrating 4 mg PO Q8HP PRN (Reason: Nausea) Qty: 20 0RF albuterol sulfate 8.5 GM HFA aerosol inhaler 2 puffs inhalation Q4HP PRN (Reason: Shortness Of Breath Or Wheezing) fluticasone propion-salmeterol 28 PUFF blister with device 1 puff inhalation BID gabapentin 300 MG capsule 300 mg PO TID metaxalone 800 MG tablet 800 mg PO NEEDED PRN (Reason: pain) amlodipine 5 mg tablet See Rx Instructions .ROUTE .COMPLEX Rx Instructions: TAKE 1/2 TABLET BY MOUTH ONCE DAILY FOR BLOOD PRESSURE hydroxyzine HCl 50 mg tablet 50 mg PO Q8H PRN (Reason: itching) Qty: 20 0RF warfarin 5 mg tablet 7.5 mg PO DAILY Rx Instructions: 5mg on tuesday and tuesday, alternating with 7.5mg all other days aspirin 81 MG tablet,delayed release (DR/EC) 81 mg PO HS levocetirizine 5 MG tablet 5 mg PO HS oxybutynin chloride 5 MG tablet 5 mg PO TID atorvastatin 20 mg tablet 40 mg PO DAILY Referrals Follow up/Referrals: Provider,Referral, MD [Primary Care Provider] - See instructions Activity Restrictions/Add. Instructions Additional Instructions/Restrictions: *Increase fluids. Water not Soda or Tea *Start antibiotic immediately and be sure to take as ordered for the FULL length of time although you should start to see improvement over the next 48 hours *Pyridium as needed Remember this medication will turn your urine . This is normal but it will stain what ever it gets on *You should not use Pyridium for more than 48 hours. If so , follow up with your primary physician to review urine culture and ensure that antibiotic is adequate for infection *Be SURE to follow up anytime for new or worsening symptoms with your family doctor. AND in 48 hours for urine culture results with your family doctor, if you do not have a doctor then you may call back to the [facility] for urine culture results and further treatment. We do recommend that you choose and establish care with a Primary Care Physician. ?AND follow up with them ?in 10-14 days to repeat UA to ensure infection is resolved and blood no longer present *Be sure to let your PCP know that we sent urine cultures from the [facility] so they can follow up to ensure that you area the on the correct antibiotic Call your doctor office and make appointment for 48 hours (2 days from today) ?to follow up and get the results of your urine culture and further treatment Make sure to notify the Warfarin Clinic that you are on Cipro for UTI so they can monitor and adjust your dose if needed Telly said he would call you tomorrow Clinical Impressions Clinical Impression: UTI (urinary tract infection) Qualifiers: Urinary tract infection type: site unspecified Hematuria presence: without hematuria Qualified Code(s): N39.0 - Urinary tract infection, site not specified Instructions Patient Instructions: DI for Urinary Tract Infection (UTI), Levofloxacin Discharge ED Provider: Shannon Jorgensen [facility] [place] General Stated complaint: pain with urination Mode of Arrival: Ambulatory Source of Information: Patient Limitations: No Limitations Time Seen by Provider: 02/17/23 19:22 Description of Symptoms (Recalled from Triage Doc. by RN): PATIENT C/O BURNING WITH URINATION, BLADDER PRESSURE AND LOWER BACK PAIN X 2 WEEKS HEENT Symptoms (Recalled from RN notes): No Resp Symptoms (Recalled from RN notes): No Skin Symptoms (Recalled from RN notes): No MS Symptoms (Recalled from RN notes): No Functional Status (Recalled from RN notes): WNL History of Present Illness Provider Complaint: Patient states that she thinks she may have a UTI States that she has been having achy like pain in her lower back and bladder pressure with burning with urination States that today it was hurting worse so she came in Related Data Home Medications Medication Instructions Recorded Confirmed cholecalciferol (vitamin D3) 25 4,000 unit PO DAILY Supplement 05/24/17 02/17/23 mcg (1,000 unit) capsule duloxetine 60 mg capsule,delayed 60 mg PO BID Depression 05/24/17 02/17/23 release fluticasone propionate 50 9.9 ml intranasal DAILY allergies 05/24/17 02/17/23 mcg/actuation nasal spray,suspension montelukast 10 mg tablet 10 mg PO PM Asthma 05/24/17 02/17/23 tramadol 50 mg tablet 50 mg PO BID Pain 05/24/17 02/17/23 aspirin 81 mg tablet,delayed 81 mg PO HS Blood thinner 12/19/18 02/17/23 release levocetirizine 5 mg tablet 5 mg PO HS Allergy symptoms 12/19/18 02/17/23 oxybutynin chloride 5 mg tablet 5 mg PO TID overactive bladder 12/19/18 02/17/23 atorvastatin 20 mg tablet 40 mg PO DAILY Cholesterol 04/03/19 02/17/23 albuterol sulfate 90 mcg/actuation 2 puffs inhalation Q4HP PRN 04/10/19 02/17/23 aerosol inhaler Shortness Of Breath Or Wheezing fluticasone 500 mcg-salmeterol 50 1 puff inhalation BID COPD 03/25/20 02/17/23 mcg/dose blistr powdr for inhalation magnesium 250 mg tablet 250 mg PO DAILY Supplement 04/30/20 02/17/23 gabapentin 300 mg capsule 300 mg PO TID nerve pain 04/28/21 02/17/23 metaxalone 800 mg tablet 800 mg PO NEEDED PRN pain 04/28/21 02/17/23 warfarin 5 mg tablet 7.5 mg PO DAILY BLOOD CLOTS 04/29/21 02/17/23 amlodipine 5 mg tablet See Rx Instructions .Route 04/09/22 02/17/23 .COMPLEX BLOOD PRESSURE amitriptyline 50 mg tablet 50 mg PO HS MOOD 04/29/22 02/17/23 omeprazole 20 mg capsule,delayed 20 mg PO DAILY GERD 04/29/22 02/17/23 release ropinirole 1 mg tablet 1 mg PO HS Pain 04/29/22 02/17/23 Previous Rx's Medication Instructions Recorded ondansetron 4 mg disintegrating 4 mg PO Q8HP PRN Nausea ##20 02/07/19 tablet hydroxyzine HCl 50 mg tablet 50 mg PO Q8H PRN itching #20 tabs 09/04/22 levofloxacin 500 mg tablet 500 mg PO DAILY 5 days #5 tabs 02/17/23 phenazopyridine 200 mg tablet 200 mg PO Q8H pain 2 days #6 tabs 02/17/23 (Pyridium) Allergies Allergy/AdvReac Type Severity Reaction Status Date / Time Sulfa (Sulfonamide Allergy Severe Hives Verified 10/21/22 16:36 Antibiotics) adhesive Allergy Unknown S-BLISTERING Verified 10/21/22 16:36 WELTS amoxicillin [From Augmentin] Allergy Unknown Rash Verified 10/21/22 16:36 cefdinir Allergy Unknown I-RASH Verified 10/21/22 16:36 clarithromycin Allergy Unknown I-RASH Verified 10/21/22 16:36 clavulanic acid Allergy Unknown Rash Verified 10/21/22 16:36 codeine Allergy Unknown NA-NAUSEA/V Verified 10/21/22 16:36 OMITING latex Allergy Unknown S-BLISTERING Verified 10/21/22 16:36 WELTS nitrofurantoin Allergy Unknown Unknown Verified 10/21/22 16:36 [From Macrobid] allergy reaction sulfamethoxazole Allergy Unknown I-RASH,DIAR Verified 10/21/22 16:36 [From Bactrim] HEA trimethoprim [From Bactrim] Allergy Unknown I-RASH,DIAR Verified 10/21/22 16:36 MARY JO Worker's Comp Is this a Worker's Comp case?: No [facility] Disclaimer: The information contained in this section may have been updated after the patient was seen, as this information can be updated by other users. 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 Lung disease Migraines Pulmonary embolism Pulmonary embolism SOB (shortness of breath) UTI (urinary tract infection) UTI (urinary tract infection) Surgical History H/O cardiac catheterization H/O left breast biopsy H/O sinus surgery H/O total hysterectomy History of bilateral carpal tunnel release History of colonoscopy History of esophagogastroduodenoscopy (EGD) History of tonsillectomy Hx of appendectomy Hx of cholecystectomy Previous back surgery x2 Family History Other Family history of alcoholism Family history of asthma Family history of bleeding disorder Family history of cancer Family history of diabetes mellitus (DM) Family history of hyperlipidemia Family history of hypertension Family history of myocardial infarction Family history of stroke Family history of substance abuse Social History Smoking Status: Former smoker tobacco type: cigarettes packs per day: 1 second hand exposure: No alcohol intake: current substance use type: denies use current occupational status: retired Travel in the last 8 weeks: None household members: spouse housing: house current occupational exposures/hazards: Yes caffeine: Yes ROS Obtained: Yes All systems reviewed & no additional complaints except as documented and Yes Systems reviewed as appropriate & no additional complaints except as documented ENT Ears, Nose, Mouth, and Throat: Reports system reviewed and no additional complaints, except as documented and Reports as per HPI Cardiovascular Cardiovascular: Reports system reviewed and no additional complaints, except as documented and Reports as per HPI Respiratory Respiratory: Reports system reviewed and no additional complaints, except as documented and Reports as per HPI Gastrointestinal Gastrointestingal: Reports system reviewed and no additional complaints, except as documented and as per HPI; Denies abdominal pain Genitourinary Female Genitourinary: Reports system reviewed and no additional complaints, except as documented and Reports as per HPI Musculoskeletal Musculoskeletal: Reports system reviewed and no additional complaints, except as documented, Reports as per HPI and Reports back pain (achy like pain in back) Physical Exam General General appearance: alert and in no apparent distress ENT ENT exam: Present mucous membranes moist Chest Chest inspection: Present normal inspection and symmetric chest wall rise Respiratory Respiratory exam: Present normal lung sounds bilaterally; Absent respiratory distress or wheezes Cardiovascular Cardiovascular exam: Present regular rate, normal rhythm and normal heart sounds Abdominal Exam Abdominal exam: Present soft and normal bowel sounds; Absent distention or tenderness Neurological Exam Neurological exam: Present alert, oriented X3 and normal gait Medical Decision Making Oneal Inquiry Pt receiving controlled substance: No Oneal was queried for this patient: No Vital Signs: 02/17/23 18:55 Temperature 98.4 F Temperature Source Oral Pulse Rate [Left Brachial] 66 Respiratory Rate 21 Blood Pressure [Left Arm] 164/81 H Blood Pressure Mean [Left Arm] 108 Blood Pressure Source [Left Arm] Automatic Cuff Blood Pressure Position [Left Arm] Sitting 02 Sat by Pulse Oximetry 94 L Oxygen Delivery Method Room Air Lab Data Lab results reviewed: Yes I reviewed the patient's lab results. Orders (Tests/Meds): ORDERS Category Date Time Status Urine Culture Stat Micro 02/17/23 19:09 Ordered Medical Decision Narrative: Patient a patient in the Warfarin Clinic Spoke with Telly Pharmacist will prescribe Levaquin 500mg daily x 5 days and he will call her in the morning about her Warafin doses Patient states that she has take Levofloxin and pyridium in the past with current medications without reactions or complications
[2023-02-17 19:28] LABS: Apearance,Urine Clear (Clear); Bilirubin,Urine Negative (Negative); Blood, Urine Negative (Negative); Color,Urine Orange (Yellow); Glucose,Urine (UA) 100 (Negative); Ketones,Urine Negative (Negative); Protein,Urine Trace (Negative); UTC Leukocyte Esterase,Urine Negative (Negative); UTC Nitrate,Urine Positive (Negative); Urobilinogen,Urine 1 EU/dl (0.2)
[2023-02-17 19:39] VITALS: BP 164/81; PULSE 66; RESP 21; TEMP 36.9; O2SAT 94
[2023-02-17] MEDS: levoFLOXacin 500MG TAB 500 MG PO (19:43)
== END 2023-02-17 19:44 | disposition home or self-care (01) ==
PROVIDERS: Emergency Provider Nurse Practitioner
DX: N39.0 Urinary tract infection, site not specified (principal); M54.50 Low back pain, unspecified; J44.9 Chronic obstructive pulmonary disease, unspecified; K21.9 Gastro-esophageal reflux disease without esophagitis; E78.5 Hyperlipidemia, unspecified; I10 Essential (primary) hypertension; Z87.891 Personal history of nicotine dependence
CPT/HCPCS: 81003; 87086; 99212; 99214; G0463

== ENCOUNTER → 2023-04-13 15:30 | Outpatient (POV) | payer MEDICARE, OTHER, SELFPAY ==
[2023-04-13 15:30] VITALS: BP 122/75; PULSE 70; RESP 20; BMI 34.4
--- NOTE | 2023-04-13 15:43 | EXP.PAIN.SOA ---
[facility] Pain Management SOAP Note Subjective:: Patient is a pleasant 67-year-old female who presents today for 1 month follow-up. Today she rates her pain an 8 out of 10. Patient at our last visit and had a right intra-articular injection that did provide 80% improvement and was still helping. Today she states that it does still seem to be doing better in her right shoulder and today her complaint is her left shoulder. She describes this as a constant aching, throbbing sensation with decreased range of motion. She states the pain does interfere with her ability perform activities of daily living such as cooking and cleaning. Patient is interested in doing injections in her left shoulder. Patient denies any previous shoulder replacements or injections into this joint. Patient is still managed with tramadol and gabapentin from her primary care provider and compounded cream from our office. Patient does state that this is helping. Her Oneal has been reviewed and is appropriate. Review of Systems: General: No recent weight changes, no fever, no sleep disturbances Respiratory: No cough, no shortness of air, no recurring pulmonary infections Cardiovascular/peripheral vascular: No chest pain, no palpitations, no edema, no shortness of breath Gastrointestinal: No new onset incontinence, normal bowel movements reported Genitourinary: No new onset incontinence Musculoskeletal: Left shoulder pain Psychiatric: [Normal mood/affect] Neurological: [Denies weakness in extremities], [denies balance issues] Objective:: Physical Exam: General: Alert and oriented x3, no acute distress, pleasant and cooperative Lungs: Respirations even and unlabored, symmetrical chest expansion Eyes: PERRL Musculoskeletal: Flexion and extension of left shoulder somewhat guarded secondary to pain, [antalgic gait noted] Neurological: Speech clear, no gross sensory deficit Assessment:: Degenerative disc disease of cervical spine with cervical radiculopathy symptoms, bilateral shoulder pain/osteoarthritis Plan:: Patient is experiencing worsening pain in her left shoulder with limited range of motion. I have reviewed over the intra-articular injection risk and benefits and she would like to proceed forward with this plan of care. Patient will be submitted for a left shoulder intra-articular injection. Patient has been instructed to contact the clinic with any concerns before the next appointment. Dr. Walls has reviewed this note and agrees with this plan of care. This note was dictated using voice recognition software and make contain errors or omissions. [facility] Disclaimer: The information contained in this section may have been updated after the patient was seen, as this information can be updated by other users. Medical History Abnormal EKG Allergies Anxiety and depression Arthritis Asthma Chest pain Clotting disorder COPD (chronic obstructive pulmonary disease) COPD (chronic obstructive pulmonary disease) Diastolic dysfunction DVT (deep venous thrombosis) DVT (deep venous thrombosis) Eustachian tube dysfunction Fatigue Fatigue Fibromyalgia Gallbladder disease GERD (gastroesophageal reflux disease) Granulomatous lung disease Hiatal hernia History of sinus problem HLD (hyperlipidemia) HLD (hyperlipidemia) HTN (hypertension) Hypertension Kidney stones long-term (current) use of anticoagulants Lung disease Migraines Pulmonary embolism Pulmonary embolism SOB (shortness of breath) UTI (urinary tract infection) UTI (urinary tract infection) Surgical History H/O cardiac catheterization H/O left breast biopsy H/O sinus surgery H/O total hysterectomy History of bilateral carpal tunnel release History of colonoscopy History of esophagogastroduodenoscopy (EGD) History of tonsillectomy Hx of appendectomy Hx of cholecystectomy Previous back surgery x2 Family History Other Family history of alcoholism Family history of asthma Family history of bleeding disorder Family history of cancer Family history of diabetes mellitus (DM) Family history of hyperlipidemia Family history of hypertension Family history of myocardial infarction Family history of stroke Family history of substance abuse Social History Smoking Status: Former smoker tobacco type: cigarettes packs per day: 1 second hand exposure: No alcohol intake: current substance use type: denies use current occupational status: retired Travel in the last 8 weeks: None household members: spouse housing: house current occupational exposures/hazards: Yes caffeine: Yes
== END ==
PROVIDERS: PCP Nurse Practitioner Family; Visit Provider Nurse Practitioner Family
DX: M19.012 Primary osteoarthritis, left shoulder (principal); M19.011 Primary osteoarthritis, right shoulder; M50.10 Cervical disc disorder with radiculopathy, unspecified cervical region
CPT/HCPCS: 99212; G0463

== ENCOUNTER 2023-04-19 10:15 | Outpatient (CLI) | payer MEDICARE, OTHER, SELFPAY ==
[2023-04-19 11:36] LABS: Basophils # 0.1 K/mm3 (0-0.2); Eosinophils # 0.5 K/mm3 (0.0-0.4); Eosinophils % 6.2 % (0.1-12.0); Hematocrit 41.7 % (37.0-47.0); Hemoglobin 13.8 g/dL (12.2-16.2); Lymphocytes % 23.5 % (10-50); Mean Corpuscular HGB Conc 33.1 g/dL (31.8-35.4); Mean Corpuscular Hemoglobin 33.6 pg (27.0-31.2); Mean Corpuscular Volume 101.3 fl (81-99); Mean Platelet Volume 8.5 fl (7.4-10.4); Monocytes # 0.5 K/mm3 (0.1-1.0); Monocytes % 5.8 % (1.7-9.3); Neutrophils # 5.5 K/mm3 (1.8-7.8); Neutrophils % 63.6 % (37.0-80.0); Platelet Count 261 K/mm3 (142-424); Red Blood Count 4.12 M/mm3 (4.20-5.40); Red Cell Distribution Width 14.8 % (11.5-17.5); White Blood Count 8.6 K/mm3 (4.8-10.8)
[2023-04-19 12:27] LABS: Potassium 3.9 mmoL/L (3.5-5.1); Sodium 140 mmol/L (136-145)
[2023-04-19 12:29] LABS: Chloride 109 mmol/L (98-107)
[2023-04-19 12:30] LABS: Alanine Aminotransferase 20 U/L (12-78); Albumin Level 3.9 g/dl (3.5-5.0); Albumin/Globulin Ratio 1.4 (1.1-1.8); Alkaline Phosphatase 111 U/L (38-126); Anion Gap 9.9 mEq/L (5-15); Aspartate Amino Transferase 24 U/L (14-36); Bilirubin,Total 0.5 mg/dl (0.2-1.3); Blood Urea Nitrogen 12 mg/dl (7-17); Calcium 9.1 mg/dl (8.4-10.2); Carbon Dioxide 25 mmol/L (22.0-30.0); Chol/HDL Ratio 5.8 (1-3.5); Cholesterol 221 mg/dl (140-200); Estimated Glomerular Filt Rate 72 ml/min (>60); GFR (African American) 87 ML/MIN (>60); Globulin 2.8 g/dL (1.3-3.2); Glucose 103 mg/dl (74-100); HDL Cholesterol 38 mg/dl (40-60); Total Protein,Serum 6.7 g/dl (6.3-8.2); Triglycerides 168 mg/dl (30-150); VLDL Cholesterol 34 mg/dL (0-40)
[2023-04-19 12:47] LABS: Direct LDL Cholesterol 123.48 mg/dL (100-129)
== END 2023-04-19 23:59 ==
PROVIDERS: PCP Nurse Practitioner Family; Visit Provider Nurse Practitioner Family
DX: E78.2 Mixed hyperlipidemia (principal); I10 Essential (primary) hypertension; Z86.711 Personal history of pulmonary embolism; Z87.891 Personal history of nicotine dependence
CPT/HCPCS: 36415; 80053; 80061; 85025

== ENCOUNTER 2023-04-22 11:02 | Outpatient (CLI) | payer MEDICARE, OTHER, SELFPAY | END 2023-04-22 11:28 | LOC: ACC 11:03 | PROVIDERS: PCP Nurse Practitioner Family; Visit Provider Internal Medicine Adolescent Medicine | DX: Z79.01 Long term (current) use of anticoagulants (principal); Z51.81 Encounter for therapeutic drug level monitoring; Z86.711 Personal history of pulmonary embolism | CPT/HCPCS: 85610; 99211; G0463 ==

== ENCOUNTER 2023-05-13 11:19 | Day surgery (SDC) | payer MEDICARE, OTHER, SELFPAY ==
[2023-05-13 11:41] VITALS: BP 172/94; PULSE 80; RESP 18; O2SAT 97; BMI 33.3
[2023-05-13] MEDS: methylPREDNISolone ACETATE 80MG/ML VIAL 80 MG (11:45)
[2023-05-13 11:46] VITALS: BP 134/78; PULSE 75; RESP 18; O2SAT 99
[2023-05-13] MEDS: LIDOCAINE 1% 5ML PF VIAL 5 ML (11:46)
[2023-05-13] MEDS: BUPIVACAINE 0.25% 10ML INJ 25 MG IJ (11:46)
[2023-05-13 11:47] VITALS: BP 134/78; PULSE 75; RESP 18; O2SAT 99
[2023-05-13 11:50] VITALS: BP 141/78; PULSE 72; RESP 18; O2SAT 97
--- NOTE | 2023-05-13 11:50 | P.PCN_ITS ---
Procedure Date: 05/13/23 Time: 11:45 Anesthesiologist:: Dustin Jaquez CRNA Complications:: None Pre-procedure Diagnosis:: DJD right shoulder. Chronic right shoulder pain. Post-procedure Diagnosis:: Same. Indications for Procedure:: Patient is a very pleasant 67-year-old female comes our clinic today for right intra-articular shoulder injection. Patient has 5/5 strength in the right arm. However, she has limited range of motion secondary to pain in the right shoulder. She rates her pain 7/10. Procedure Details:: Right shoulder seems to be the worst at this time. We will do an intra-articular injection today to see if this helps with her pain symptoms. Procedure Details: Right shoulder intra-articular injection Informed consent was obtained risk and benefits of the procedure were explained to the patient. Patient was taken to the procedure room. The right shoulder was prepped using ChloraPrep. A 25-gauge needle was used first anteriorly, laterally, and then posteriorly to inject 10 mL bupivacaine 0.25% and Depo- Medrol 40 mg. Patient tolerated procedure well with no complications. Plan and Disposition:: Patient was discharged without incident.
== END 2023-05-13 11:50 | disposition home or self-care (01) ==
PROVIDERS: PCP Nurse Practitioner Family; Visit Provider Nurse Anesthetist, Certified Registered
DX: M19.011 Primary osteoarthritis, right shoulder (principal); M25.511 Pain in right shoulder; G89.29 Other chronic pain
CPT/HCPCS: 20610; J1010

== ENCOUNTER 2023-05-18 11:38 | Outpatient (CLI) | payer MEDICARE, OTHER, SELFPAY ==
[2023-05-18 13:56] LABS: PHA INR Fingerstick 2.5 (0.9-1.1)
== END 2023-05-18 15:16 ==
LOC: ACC 11:38
PROVIDERS: PCP Internal Medicine Adolescent Medicine; Visit Provider Internal Medicine Adolescent Medicine
DX: Z79.01 Long term (current) use of anticoagulants (principal); Z51.81 Encounter for therapeutic drug level monitoring
CPT/HCPCS: 85610; 99211; G0463

== ENCOUNTER 2023-05-30 10:49 | Outpatient (POV) | payer MEDICARE, OTHER, SELFPAY ==
[2023-05-30 10:55] VITALS: BP 134/73; PULSE 65; RESP 16; O2SAT 97; BMI 33.3
--- NOTE | 2023-05-30 11:32 | EXP.PAIN.SOA ---
[facility] Pain Management SOAP Note Subjective:: Patient is a pleasant 67-year-old female who presents today for follow-up of right intra-articular shoulder injection on 05/13/2023. We are currently treating the patient for degenerative disc disease of cervical and lumbar spine with cervical and lumbar radiculopathy symptoms, postlaminectomy syndrome, neck pain, headache, right shoulder pain. She denies any new trauma or injury. Today she states her shoulder pain is a 2 out of 10 however she states she is experiencing worsening neck pain a 7 out of 10. Patient does state that she feels like she got at least 70% relief from her shoulder injection and feels like it still helping. Today her pain is more of an aching, throbbing sensation with some numbness and tingling into both her arms that stems from her neck. Patient does state the pain is worse with increased activity and does affect her ability to perform activities of daily living such as cooking and cleaning. That did provide significant relief of more than 50% lasting several months. Patient has not had any of these injections since April 2022 and is interested in proceeding forward with this option. She is currently managed with gabapentin 300 mg 4 times a day and tramadol 50 mg twice a day from her primary care doctor. She does also continue to use Tylenol and her compounded cream. Patient is currently on warfarin from the Coumadin clinic. Her Oneal has been reviewed and is appropriate. Review of Systems: General: No recent weight changes, no fever, no sleep disturbances Respiratory: No cough, no shortness of air, no recurring pulmonary infections Cardiovascular/peripheral vascular: No chest pain, no palpitations, no edema, no shortness of breath Gastrointestinal: No new onset incontinence, normal bowel movements reported Genitourinary: No new onset incontinence Musculoskeletal: Neck/upper back pain, arm pain Psychiatric: [Normal mood/affect] Neurological: [Denies weakness in extremities], [denies balance issues] Objective:: Physical Exam: General: Alert and oriented x3, no acute distress, pleasant and cooperative Lungs: Respirations even and unlabored, symmetrical chest expansion Eyes: PERRL Musculoskeletal: Flexion and extension of cervical [spine] somewhat guarded secondary to pain, [antalgic gait noted] positive Spurling's test Neurological: Speech clear, no gross sensory deficit Assessment:: Degenerative disc disease of cervical spine with cervical radiculopathy symptoms, bilateral shoulder pain/osteoarthritis Plan:: Patient did have significant improvement of her right shoulder following her intra-articular injection however she is experiencing worsening neck pain that does radiate down into her bilateral arms and hands with numbness and tingling. Patient did have limited range of motion of her cervical spine with a positive Spurling's test. I have discussed with the patient that she may benefit from a repeat cervical epidural steroid injection. Risk and benefits were discussed with patient and she would like to proceed forward with this plan of care. We will reach out to the Coumadin clinic and confirm that she can stop her warfarin prior to this injection. Patient agrees with this plan of care. We will schedule the patient for a cervical epidural steroid injection C6-C7 under fluoroscopy. Patient has tried and failed conservative therapies patient has had this injection prior and gotten more than 50% relief lasting several months. This injection has not been done since April 2022. Patient has been instructed to contact the clinic with any concerns before the next appointment. Dr. Walls has reviewed this note and agrees with this plan of care. This note was dictated using voice recognition software and make contain errors or omissions. [facility] Disclaimer: The information contained in this section may have been updated after the patient was seen, as this information can be updated by other users. 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 Lung disease Migraines Pulmonary embolism Pulmonary embolism SOB (shortness of breath) UTI (urinary tract infection) UTI (urinary tract infection) Surgical History H/O cardiac catheterization H/O left breast biopsy H/O sinus surgery H/O total hysterectomy History of bilateral carpal tunnel release History of colonoscopy History of esophagogastroduodenoscopy (EGD) History of tonsillectomy Hx of appendectomy Hx of cholecystectomy Previous back surgery x2 Family History Other Family history of alcoholism Family history of asthma Family history of bleeding disorder Family history of cancer Family history of diabetes mellitus (DM) Family history of hyperlipidemia Family history of hypertension Family history of myocardial infarction Family history of stroke Family history of substance abuse Social History Smoking Status: Former smoker tobacco type: cigarettes packs per day: 1 second hand exposure: No alcohol intake: current substance use type: denies use current occupational status: other Travel in the last 8 weeks: None household members: spouse housing: house current occupational exposures/hazards: Yes caffeine: Yes
== END 2023-05-30 23:59 ==
LOC: SC.PAIN 10:50
PROVIDERS: PCP Internal Medicine Adolescent Medicine; Visit Provider Nurse Practitioner Family
DX: M50.123 Cervical disc disorder at C6-C7 level with radiculopathy (principal); M19.011 Primary osteoarthritis, right shoulder; M19.012 Primary osteoarthritis, left shoulder; M25.511 Pain in right shoulder; M25.512 Pain in left shoulder
CPT/HCPCS: 99212; G0463

== ENCOUNTER 2023-06-28 11:06 | Day surgery (SDC) | payer MEDICARE, OTHER, SELFPAY ==
[2023-06-28 11:40] VITALS: BP 137/94; PULSE 71; RESP 18; TEMP 36.7; O2SAT 98; BMI 33.6
[2023-06-28 12:16] LABS: INR 0.95 (0.9-1.1); Prothrombin Time 10.3 seconds (10.1-12.5)
[2023-06-28] MEDS: methylPREDNISolone ACETATE 80MG/ML VIAL 80 MG (12:28)
[2023-06-28] MEDS: IOPAMIDOL-200 (41%);10ML VIAL 10 ML IV (12:29)
--- NOTE | 2023-06-28 12:31 | P.PCN_ITS ---
Procedure Date: 06/28/23 Time: 12:15 Anesthesiologist:: Dustin Jaquez CRNA Complications:: None Pre-procedure Diagnosis:: Degenerative disc cervical spine multilevels. Cervical radiculopathy. Post-procedure Diagnosis:: Same. Indications for Procedure:: Patient is a very pleasant 67-year-old female comes our clinic today for cervical epidural steroid injection. Patient has had significant improvement terms of her overall cervical neck pain as well as bilateral arm radicular symptoms with previous injections at the same level. She rates her pain today 7/10. She describes posterior cervical neck pain as well as bilateral arm radicular symptoms at times. Procedure Details:: Procedure:Cervical epidural steroid injection Informed consent was obtained and the risks and benefits of the procedure were explained to the patient. The patient was taken to the procedure room and noninvasive monitors placed, including noninvasive blood pressure cuff and pulse oximeter. The neck was prepped using Chloraprep as a cleansing solution. The C6- C7 interspace was viewed using fluroscopy. The skin and subcutaneous tissues were anesthetized using lidocaine 1.5% and a 25-gauge needle. After this an 18- gauge Touhy epidural needle was placed into the C6-C7 interspace under fluroscopy guidance and advanced using loss of resistance to air until the epidural space was encountered. After confirmation of needle placement in the epidural space using contrast dye, a solution containing normal saline, 2 mL and Depo-Medrol 80 mg was incrementally injected into the cervical epidural space.~ The patient tolerated the procedure well with no complications. The patient was observed in the Pain Clinic and then discharged home neurologically intact. Plan and Disposition:: Patient was discharged without incident.
[2023-06-28 12:43] VITALS: BP 133/76; PULSE 70; RESP 18; O2SAT 98
== END 2023-06-28 12:45 | disposition home or self-care (01) ==
PROVIDERS: Nurse Practitioner Family; PCP Internal Medicine Adolescent Medicine; Visit Provider Nurse Anesthetist, Certified Registered
DX: M50.123 Cervical disc disorder at C6-C7 level with radiculopathy (principal)
CPT/HCPCS: 36415; 62321; 85610; J1010; Q9966

== ENCOUNTER 2023-07-18 13:05 | Outpatient (CLI) | payer MEDICARE, OTHER, SELFPAY ==
[2023-07-18 14:30] LABS: PHA INR Fingerstick 2.7 (0.9-1.1)
== END 2023-07-18 14:34 ==
LOC: ACC 13:06
PROVIDERS: PCP Internal Medicine Adolescent Medicine; Visit Provider Internal Medicine Adolescent Medicine
DX: Z79.01 Long term (current) use of anticoagulants (principal)
CPT/HCPCS: 85610; 99211; G0463

== ENCOUNTER 2023-07-25 14:22 | Outpatient (POV) | payer MEDICARE, OTHER, SELFPAY ==
[2023-07-25 14:54] VITALS: BP 135/79; PULSE 67; RESP 18; O2SAT 96; BMI 33.3
--- NOTE | 2023-07-25 14:57 | EXP.PAIN.SOA ---
[facility] Pain Management SOAP Note Subjective:: Patient is a pleasant 67-year-old female who presents today for follow-up of cervical epidural steroid injection C6-C7 on 06/28/2023. Today she rates her pain a 3 out of 10 within her neck. Patient states that she has at least 75% better following this injection. She states she has been able to increase her activity with overall decreased pain. She does state today however that she has having more pain in her bilateral knees with the left one being the worst knee. She describes this as an aching, throbbing sensation that is worse with increased activity or ambulation. She does state it interferes with her ability perform activities of daily living such as cooking and cleaning. Patient does have to stop and take multiple breaks. Patient states that they are trying to have her do knee replacements however she is not interested in this option at this time. Patient does rate her knee pain about a 5 out of 10. Patient is prescribed gabapentin and tramadol from her PCP. Patient is prescribed compounded cream from our office and states that she does continue to use this on her knees and shoulders. Her Oneal has been reviewed and is appropriate. Review of Systems: General: No recent weight changes, no fever, no sleep disturbances Respiratory: No cough, no shortness of air, no recurring pulmonary infections Cardiovascular/peripheral vascular: No chest pain, no palpitations, no edema, no shortness of breath Gastrointestinal: No new onset incontinence, normal bowel movements reported Genitourinary: No new onset incontinence Musculoskeletal: Bilateral knee pain Psychiatric: [Normal mood/affect] Neurological: [Denies weakness in extremities], [denies balance issues] Objective:: Physical Exam: General: Alert and oriented x3, no acute distress, pleasant and cooperative Lungs: Respirations even and unlabored, symmetrical chest expansion Eyes: PERRL Musculoskeletal: Flexion and extension of bilateral knees somewhat guarded secondary to pain, [antalgic gait noted] Neurological: Speech clear, no gross sensory deficit Assessment:: Degenerative disc disease of cervical spine with cervical radiculopathy symptoms, bilateral shoulder pain/osteoarthritis, bilateral knee pain/osteoarthritis Plan:: Patient is experiencing significant pain in her bilateral knees with limited range of motion. I have discussed with the patient that she may benefit from bilateral knee intra-articular injection. Risk and benefits were discussed with patient and she would like to proceed forward with this plan of care. We will schedule the patient for bilateral knee intra-articular injections. Patient has tried and failed conservative therapy including continued at home exercise and stretching between injections for longer than 6 weeks. Patient has been instructed to contact the clinic with any concerns before the next appointment. Dr. Walls has reviewed this note and agrees with this plan of care. This note was dictated using voice recognition software and make contain errors or omissions. [facility] Disclaimer: The information contained in this section may have been updated after the patient was seen, as this information can be updated by other users. 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 Lung disease Migraines Pulmonary embolism Pulmonary embolism SOB (shortness of breath) UTI (urinary tract infection) UTI (urinary tract infection) Surgical History H/O cardiac catheterization H/O left breast biopsy H/O sinus surgery H/O total hysterectomy History of bilateral carpal tunnel release History of colonoscopy History of esophagogastroduodenoscopy (EGD) History of tonsillectomy Hx of appendectomy Hx of cholecystectomy Previous back surgery x2 Family History Other Family history of alcoholism Family history of asthma Family history of bleeding disorder Family history of cancer Family history of diabetes mellitus (DM) Family history of hyperlipidemia Family history of hypertension Family history of myocardial infarction Family history of stroke Family history of substance abuse Social History Smoking Status: Former smoker tobacco type: cigarettes packs per day: 1 second hand exposure: No alcohol intake: current alcohol intake frequency: holidays/special occasions only substance use type: denies use current occupational status: retired Travel in the last 8 weeks: None household members: spouse housing: house current occupational exposures/hazards: Yes caffeine: Yes
== END 2023-07-25 23:59 | disposition home or self-care (01) ==
LOC: SC.PAIN 14:24
PROVIDERS: PCP Nurse Practitioner Family; Visit Provider Nurse Practitioner Family
DX: M50.123 Cervical disc disorder at C6-C7 level with radiculopathy (principal); M19.011 Primary osteoarthritis, right shoulder; M19.012 Primary osteoarthritis, left shoulder; M25.511 Pain in right shoulder; M25.512 Pain in left shoulder; M17.0 Bilateral primary osteoarthritis of knee; M25.561 Pain in right knee; M25.562 Pain in left knee
CPT/HCPCS: 99212; G0463

== ENCOUNTER 2023-08-16 10:55 | Day surgery (SDC) | payer MEDICARE, OTHER, SELFPAY ==
[2023-08-16 11:18] VITALS: BP 108/58; PULSE 56; RESP 18; TEMP 36.6; O2SAT 96; BMI 33.3
[2023-08-16] MEDS: methylPREDNISolone ACETATE 80MG/ML VIAL 80 MG (11:34)
[2023-08-16] MEDS: LIDOCAINE 1% 5ML PF VIAL 5 ML (11:34)
[2023-08-16] MEDS: BUPIVACAINE 0.25% 10ML INJ 25 MG IJ (11:34)
[2023-08-16 11:35] VITALS: BP 115/54; PULSE 63; RESP 18; O2SAT 95
[2023-08-16 11:37] VITALS: BP 107/58; PULSE 62; RESP 18; O2SAT 96
[2023-08-16 11:40] VITALS: BP 115/54; PULSE 63; RESP 18; O2SAT 95
--- NOTE | 2023-08-16 11:40 | EXP.PAIN.PRO ---
Procedure Date: 08/16/23 Time: 11:25 Anesthesiologist:: Dustin Jaquez CRNA Complications:: None Pre-procedure Diagnosis:: DJD bilateral knees. Chronic bilateral knee pain. Post-procedure Diagnosis:: Same Indications for Procedure:: Patient is a pleasant 67-year-old female comes our clinic today for bilateral intra-articular knee injections of cortisone. Patient reports bilateral knee pain is constant, dull, aching. Pain intensifies with ambulation. Pain intensifies with flexion. She rates her pain 7/10. Procedure Details:: Informed consent was obtained risk and benefits of the procedure were explained to the patient. Patient was taken the procedure room both knees were prepped using ChloraPrep. A 25-gauge needle was used to inject 10 mL bupivacaine 0.25% and Depo-Medrol 40 mg into each knee. We did a total of 80 mg Depo-Medrol for both knees. The patient tolerated the procedure well with no complications. Plan and Disposition:: Patient was discharged without incident.
== END 2023-08-16 11:37 | disposition home or self-care (01) ==
PROVIDERS: PCP Nurse Practitioner Family; Visit Provider Nurse Anesthetist, Certified Registered
DX: M25.562 Pain in left knee (principal); M25.561 Pain in right knee; M17.0 Bilateral primary osteoarthritis of knee
CPT/HCPCS: 20610; J1010

== ENCOUNTER 2023-08-29 12:59 | Outpatient (CLI) | payer MEDICARE, OTHER, SELFPAY ==
[2023-08-29 15:15] LABS: PHA INR Fingerstick 2.2 (0.9-1.1)
== END 2023-08-29 15:43 ==
LOC: ACC 13:00
PROVIDERS: PCP Internal Medicine Adolescent Medicine; Visit Provider Internal Medicine Adolescent Medicine
DX: Z79.01 Long term (current) use of anticoagulants (principal); Z86.711 Personal history of pulmonary embolism
CPT/HCPCS: 85610; 99211; G0463

== ENCOUNTER 2023-09-19 19:06 | Emergency (ER) | payer MEDICARE, OTHER, SELFPAY ==
[2023-09-19 19:08] VITALS: BP 115/72; PULSE 75; RESP 19; TEMP 36.6; O2SAT 96; BMI 34.4
[2023-09-19 19:15] VITALS: BP 115/72; PULSE 75; O2SAT 97
--- NOTE | 2023-09-19 19:15 | ECG_ITS ---
APPROVED REPORT Exam: Resting ECG HR:70 bpm ECG Measurements Heart Rate 70 AXES WY 158 P 75 QRSd 104 QRS 40 QT 397 T 41 QTc 417 Conclusion SINUS RHYTHM LOW QRS VOLTAGE IN PRECORDIAL LEADS [QRS DEFLECTION < 1.0 mV IN CHEST LEADS] POSSIBLE RIGHT VENTRICULAR CONDUCTION DELAY [RSR (QR) IN V1/V2] Electronically signed by : EKTA THORNTON, 09/20/2023 00:31:14
--- NOTE | 2023-09-19 19:15 | ED_ITS ---
<Statement entered by Mary Anaya DO - 09/19/23 23:33> I was consulted by the ROSLYN, and we discussed the complexity of the problems being addressed. I approved the treatment and management plan for this patient's care in the emergency department, thus performing a substantive portion of the medical decision making. Mary Anaya DO Discharge Plan Disposition Patient Disposition: Home, Self-Care Condition: Good Prescriptions Prescriptions: No Action ropinirole 1 mg tablet 1 mg PO HS amitriptyline 50 mg tablet 50 mg PO HS omeprazole 20 mg capsule,delayed release(DR/EC) 20 mg PO DAILY magnesium 250 mg tablet 250 mg PO DAILY amlodipine 5 mg tablet See Rx Instructions .ROUTE .COMPLEX Qty: 90 0RF Dose Instruction: TAKE 1/2 TABLET BY MOUTH ONCE DAILY FOR BLOOD PRESSURE Rx Instructions: TAKE 1/2 TABLET BY MOUTH ONCE DAILY FOR BLOOD PRESSURE tramadol 50 MG tablet 50 mg PO BID montelukast 10 MG tablet 10 mg PO PM fluticasone propionate 9.9 ML spray,suspension 9.9 ml intranasal DAILY cholecalciferol (vitamin D3) 1,000 UNIT capsule 4,000 unit PO DAILY duloxetine 60 MG capsule,delayed release(DR/EC) 60 mg PO BID ondansetron 4 MG tablet,disintegrating 4 mg PO Q8HP PRN (Reason: Nausea) Qty: 20 0RF albuterol sulfate 8.5 GM HFA aerosol inhaler 2 puffs inhalation Q4HP PRN (Reason: Shortness Of Breath Or Wheezing) fluticasone propion-salmeterol 28 PUFF blister with device 1 puff inhalation BID gabapentin 300 MG capsule 300 mg PO TID metaxalone 800 MG tablet 800 mg PO NEEDED PRN (Reason: pain) hydroxyzine HCl 50 mg tablet 50 mg PO Q8H PRN (Reason: itching) Qty: 20 0RF warfarin 5 mg tablet 7.5 mg PO DAILY Rx Instructions: 5mg on tuesday and tuesday, alternating with 7.5mg all other days aspirin 81 MG tablet,delayed release (DR/EC) 81 mg PO HS levocetirizine 5 MG tablet 5 mg PO HS oxybutynin chloride 5 MG tablet 5 mg PO TID atorvastatin 20 mg tablet 40 mg PO DAILY levofloxacin 500 mg tablet 500 mg PO DAILY 5 Days Qty: 5 0RF phenazopyridine [Pyridium] 200 mg tablet 200 mg PO Q8H 2 Days Qty: 6 0RF Referrals Follow up/Referrals: Sandra Lenz APRN [Primary Care Provider] - See instructions Activity Restrictions/Add. Instructions Additional Instructions/Restrictions: Follow-up with your PCP within 48 hours for recheck of your pulmonary nodule. Return to ER for any worsening signs or symptoms including intractable headache change in level of consciousness intractable vomiting etc. You may take Tylenol Motrin alternating every 4 hours for chest wall pain Clinical Impressions Clinical Impression: Acute chest wall pain Fall Qualifiers: Encounter type: initial encounter Qualified Code(s): W19.XXXA - Unspecified fall, initial encounter Instructions Patient Instructions: How to Prevent Falls Print Language Print Language: Afghan Discharge ED Provider: Mary Anaya HPI <VICENTE Obrien - Last Filed: 09/19/23 23:17> General Chief Complaint: Fall Stated Complaint: AO fall 1630 soa pain under righ arm hit head Time Seen by Provider: 09/19/23 19:15 History of Present Illness HPI narrative: Patient presents for evaluation after an accidental fall. Patient missed stepped walking on the sidewalk tripping and falling onto her right side/chest. She mostly braced her fall with her left hand but she also struck her head on the concrete. She did not lose consciousness. However patient is on Coumadin and presented for evaluation and concern of that. She denies loss of consciousness change in mental status headache nausea vomiting diarrhea cardiac chest pain shortness of breath fever chills hemoptysis hematochezia melena. Patient also reports right-sided chest wall pain but no difficulty in breathing. Related Data Home Medications ?Medication ?Instructions ?Recorded ?Confirmed cholecalciferol (vitamin D3) 25 4,000 unit PO DAILY Supplement 05/24/17 08/16/23 mcg (1,000 unit) capsule duloxetine 60 mg capsule,delayed 60 mg PO BID Depression 05/24/17 08/16/23 release fluticasone propionate 50 9.9 ml intranasal DAILY allergies 05/24/17 08/16/23 mcg/actuation nasal spray,suspension montelukast 10 mg tablet 10 mg PO PM Asthma 05/24/17 08/16/23 tramadol 50 mg tablet 50 mg PO BID Pain 05/24/17 08/16/23 aspirin 81 mg tablet,delayed 81 mg PO HS Blood thinner 12/19/18 08/16/23 release levocetirizine 5 mg tablet 5 mg PO HS Allergy symptoms 12/19/18 08/16/23 oxybutynin chloride 5 mg tablet 5 mg PO TID overactive bladder 12/19/18 08/16/23 atorvastatin 20 mg tablet 40 mg PO DAILY Cholesterol 04/03/19 08/16/23 albuterol sulfate 90 mcg/actuation 2 puffs inhalation Q4HP PRN 04/10/19 08/16/23 aerosol inhaler Shortness Of Breath Or Wheezing fluticasone 500 mcg-salmeterol 50 1 puff inhalation BID COPD 03/25/20 08/16/23 mcg/dose blistr powdr for inhalation magnesium 250 mg tablet 250 mg PO DAILY Supplement 04/30/20 08/16/23 gabapentin 300 mg capsule 300 mg PO TID nerve pain 04/28/21 08/16/23 metaxalone 800 mg tablet 800 mg PO NEEDED PRN pain 04/28/21 08/16/23 warfarin 5 mg tablet 7.5 mg PO DAILY BLOOD CLOTS 04/29/21 08/16/23 amitriptyline 50 mg tablet 50 mg PO HS MOOD 04/29/22 08/16/23 omeprazole 20 mg capsule,delayed 20 mg PO DAILY GERD 04/29/22 08/16/23 release ropinirole 1 mg tablet 1 mg PO HS Pain 04/29/22 08/16/23 Previous Rx's ?Medication ?Instructions ?Recorded ondansetron 4 mg disintegrating 4 mg PO Q8HP PRN Nausea ##20 02/07/19 tablet hydroxyzine HCl 50 mg tablet 50 mg PO Q8H PRN itching #20 tabs 09/04/22 levofloxacin 500 mg tablet 500 mg PO DAILY 5 days #5 tabs 02/17/23 phenazopyridine 200 mg tablet 200 mg PO Q8H pain 2 days #6 tabs 02/17/23 (Pyridium) amlodipine 5 mg tablet See Rx Instructions .Route 04/27/23 .COMPLEX #90 tabs Allergies Allergy/AdvReac Type Severity Reaction Status Date / Time Sulfa (Sulfonamide Allergy Severe Hives Verified 08/16/23 11:18 Antibiotics) adhesive Allergy Unknown S-BLISTERING Verified 08/16/23 11:18 WELTS amoxicillin [From Augmentin] Allergy Unknown Rash Verified 08/16/23 11:18 cefdinir Allergy Unknown I-RASH Verified 08/16/23 11:18 clarithromycin Allergy Unknown I-RASH Verified 08/16/23 11:18 clavulanic acid Allergy Unknown Rash Verified 08/16/23 11:18 codeine Allergy Unknown NA-NAUSEA/V Verified 08/16/23 11:18 OMITING latex Allergy Unknown S-BLISTERING Verified 08/16/23 11:18 WELTS nitrofurantoin Allergy Unknown Unknown Verified 08/16/23 11:18 [From Macrobid] allergy reaction sulfamethoxazole Allergy Unknown I-RASH,DIAR Verified 08/16/23 11:18 [From Bactrim] HEA trimethoprim [From Bactrim] Allergy Unknown I-RASH,DIAR Verified 08/16/23 11:18 MARY JO CRUZ <VICENTE Obrien - Last Filed: 09/19/23 23:17> [facility], LAT[facility] Disclaimer: The information contained in this section may have been updated after the patient was seen, as this information can be updated by other users. Medical History Abnormal EKG Allergies Anxiety and depression Arthritis Asthma Chest pain Clotting disorder COPD (chronic obstructive pulmonary disease) COPD (chronic obstructive pulmonary disease) Diastolic dysfunction DVT (deep venous thrombosis) DVT (deep venous thrombosis) Eustachian tube dysfunction Fatigue Fatigue Fibromyalgia Gallbladder disease GERD (gastroesophageal reflux disease) Granulomatous lung disease Hiatal hernia History of sinus problem HLD (hyperlipidemia) HLD (hyperlipidemia) HTN (hypertension) Hypertension Kidney stones assisted (current) use of anticoagulants Lung disease Migraines Pulmonary embolism Pulmonary embolism SOB (shortness of breath) UTI (urinary tract infection) UTI (urinary tract infection) Surgical History H/O cardiac catheterization H/O left breast biopsy H/O sinus surgery H/O total hysterectomy History of bilateral carpal tunnel release History of colonoscopy History of esophagogastroduodenoscopy (EGD) History of tonsillectomy Hx of appendectomy Hx of cholecystectomy Previous back surgery x2 Family History Other Family history of alcoholism Family history of asthma Family history of bleeding disorder Family history of cancer Family history of diabetes mellitus (DM) Family history of hyperlipidemia Family history of hypertension Family history of myocardial infarction Family history of stroke Family history of substance abuse Social History Smoking Status: Current every day smoker tobacco type: cigarettes packs per day: 1 second hand exposure: No alcohol intake: current alcohol intake frequency: holidays/special occasions only substance use type: denies use current occupational status: retired Travel in the last 8 weeks: None household members: spouse housing: house current occupational exposures/hazards: Yes caffeine: Yes <VICENTE Obrien - Last Filed: 09/19/23 23:17> ROS Obtained: Yes Systems reviewed as appropriate & no additional complaints except as documented Physical Exam <VICENTE Obrien Last Filed: 09/19/23 23:17> General General appearance: alert and in no apparent distress Head Head exam: other (Patient has a slight contusion to her right anterior upper forehead with no bony deformity or skin break) Eye Eye exam: Present normal appearance, PERRL and EOMI Neck Neck exam: Present normal inspection and full ROM; Absent tenderness Chest Chest inspection: Present normal inspection and tenderness (Patient is tender to palpation in the left upper lateral chest wall without evidence of ecchymosis contusions or abrasions visible or palpable bony deformity. Breath sounds are clear and equal bilaterally.) Respiratory Respiratory exam: Present normal lung sounds bilaterally Cardiovascular Cardiovascular exam: Present regular rate and normal rhythm Extremities Exam Extremities exam: Present normal inspection and full ROM; Absent tenderness Back Exam Back exam: Present normal inspection and full ROM; Absent tenderness Neurological Exam Neurological exam: Present alert, oriented X3, CN II-XII intact and normal gait; Absent motor sensory deficit HEART Score <VICENTE Obrien - Last Filed: 09/19/23 23:17> HEART Score HEART Score assessment performed?: No Critical Care <VICENTE Obrien Last Filed: 09/19/23 23:17> Critical Care Time Critical Care Time: No Medical Decision Making <VICENTE Obrien - Last Filed: 09/19/23 23:17> Medical Records Medical records reviewed: Yes I reviewed the patient's medical records. Oneal Inquiry Pt receiving controlled substance: No Vital Signs Vital Signs: 09/19/23 19:08 09/19/23 19:15 09/19/23 21:35 Temperature 97.9 F 98.2 F Temperature Source Oral Oral Pulse Rate 75 66 Pulse Rate [Left Radial] 75 Respiratory Rate 19 18 Blood Pressure 115/72 126/70 Blood Pressure [Right Arm] 115/72 Blood Pressure Mean 93 Blood Pressure Mean [Right Arm] 86 Blood Pressure Source Automatic Cuff Blood Pressure Position Supine 02 Sat by Pulse Oximetry 96 97 Oxygen Delivery Method Room Air Room Air Room Air Lab Data Lab results reviewed: Yes I reviewed the patient's lab results. Labs: Lab Results 09/19/23 20:15: WBC 8.4, RBC 3.83 L, Hgb 12.8, Hct 39.7, MCV 103.7 H, MCH 33.3 H , MCHC 32.1, RDW 14.4, Plt Count 265, MPV 9.5, Neut % (Auto) 63.0, Lymph % (Auto) 27.5, [place] % (Auto) 4.8, Eos % (Auto) 3.7, Baso % (Auto) 1.1, Neut # (Auto) 5.3, Lymph # (Auto) 2.3, [place] # (Auto) 0.4, Eos # (Auto) 0.3, Baso # (Auto) 0.1, PT 23.2 H, INR 2.24 H, Sodium 140, Potassium 3.7, Chloride 110 H, Carbon Dioxide 26, Anion Gap 7.7, BUN 17, Creatinine 1.20 H, Estimated Creat Clear 68, Estimated GFR 45 L, Est GFR ( Amer) 54 L, Glucose 99, Calcium 9.0, Total Bilirubin 0.6, AST 31, ALT 22, Alkaline Phosphatase 87, Total Protein 7.5, Albumin 4.3, Globulin 3.2, Albumin/Globulin Ratio 1.3 09/19/23 20:15 09/19/23 20:15 Response Orders (Tests/Meds): ED MEDICATIONS Discontinued Medications Generic Name Dose Route Start Last Admin Trade Name Freq PRN Reason Stop Dose Admin Acetaminophen 1,000 mg 09/19/23 20:35 09/19/23 20:40 Acetaminophen 500mg Tab PO 09/19/23 20:36 1,000 mg ONCE ONE Administration Oxycodone HCl 5 mg 09/19/23 20:34 09/19/23 20:42 Oxycodone 5mg Immediate Release Tablet PO 09/19/23 20:35 5 mg ONCE ONE Administration ORDERS Category Date Time Status CT cervical spine wo con Stat Cat Scan 09/19/23 19:[address] chest wo con Stat Cat Scan 09/19/23 19:[address] head/brain wo con Stat Cat Scan 09/19/23 19:[address] thoracic spine wo con Stat Cat Scan 09/19/23 19:21 Completed CBC w/Auto Diff [Complete Blood Count Auto Diff] Stat Lab 09/19/23 20:15 Completed CMP [Comprehensive Metabolic Panel] Stat Lab 09/19/23 20:15 Completed INR [Prothrombin Time INR] Stat Lab 09/19/23 20:15 Completed MDM Narrative Medical Decision Narrative: In summary patient is a 67-year-old female who presents to the emergency department for evaluation of a fall. Patient is patient is hemodynamically stable upon arrival, afebrile. Physical exam is remarkable for right upper anterior chest wall pain on palpation without any visible evidence of trauma bony deformity visibly or palpably with normal breath sounds. Patient also has a slight contusion to the right upper forehead without any bony deformity or skin break. Differential diagnosis includes contusion versus intracranial injury versus rib fractures versus chest wall contusion versus pulmonary contusion etc. Initial workup will be conducted with hematologic labs CT scan of the head C- spine T-spine and chest without contrast. Initial interventions include Tylenol oxycodone. Initial workup reviewed by me shows her hematologic labs are nonactionable her INR is therapeutic and my informal interpretation of her CT imaging prior to radiology read shows no acute processes including bleed fracture or break. Upon repeat evaluation patient did have adequate resolution of her pain after initial intervention. Given this patient is appropriate for discharge with recommendations to follow-up with her PCP for pulmonary nodule which is already known for further workup if necessary. Patient given strict return precautions for closed head injury. <Mary Anaya, DO - Last Filed: 09/19/23 23:33> Vital Signs Vital Signs: 09/19/23 19:08 09/19/23 19:15 09/19/23 21:35 Temperature 97.9 F 98.2 F Temperature Source Oral Oral Pulse Rate 75 66 Pulse Rate [Left Radial] 75 Respiratory Rate 19 18 Blood Pressure 115/72 126/70 Blood Pressure [Right Arm] 115/72 Blood Pressure Mean 93 Blood Pressure Mean [Right Arm] 86 Blood Pressure Source Automatic Cuff Blood Pressure Position Supine 02 Sat by Pulse Oximetry 96 97 Oxygen Delivery Method Room Air Room Air Room Air Lab Data Labs: Lab Results 09/19/23 20:15: WBC 8.4, RBC 3.83 L, Hgb 12.8, Hct 39.7, MCV 103.7 H, MCH 33.3 H , MCHC 32.1, RDW 14.4, Plt Count 265, MPV 9.5, Neut % (Auto) 63.0, Lymph % (Auto) 27.5, [place] % (Auto) 4.8, Eos % (Auto) 3.7, Baso % (Auto) 1.1, Neut # (Auto) 5.3, Lymph # (Auto) 2.3, [place] # (Auto) 0.4, Eos # (Auto) 0.3, Baso # (Auto) 0.1, PT 23.2 H, INR 2.24 H, Sodium 140, Potassium 3.7, Chloride 110 H, Carbon Dioxide 26, Anion Gap 7.7, BUN 17, Creatinine 1.20 H, Estimated Creat Clear 68, Estimated GFR 45 L, Est GFR ( Amer) 54 L, Glucose 99, Calcium 9.0, Total Bilirubin 0.6, AST 31, ALT 22, Alkaline Phosphatase 87, Total Protein 7.5, Albumin 4.3, Globulin 3.2, Albumin/Globulin Ratio 1.3 Response Orders (Tests/Meds): ED MEDICATIONS Discontinued Medications Generic Name Dose Route Start Last Admin Trade Name Freq PRN Reason Stop Dose Admin Acetaminophen 1,000 mg 09/19/23 20:35 09/19/23 20:40 Acetaminophen 500mg Tab PO 09/19/23 20:36 1,000 mg ONCE ONE Administration Oxycodone HCl 5 mg 09/19/23 20:34 09/19/23 20:42 Oxycodone 5mg Immediate Release Tablet PO 09/19/23 20:35 5 mg ONCE ONE Administration ORDERS Category Date Time Status CT cervical spine wo con Stat Cat Scan 09/19/23 19:[address] chest wo con Stat Cat Scan 09/19/23 19:[address] head/brain wo con Stat Cat Scan 09/19/23 19:[address] thoracic spine wo con Stat Cat Scan 09/19/23 19:21 Completed CBC w/Auto Diff [Complete Blood Count Auto Diff] Stat Lab 09/19/23 20:15 Completed CMP [Comprehensive Metabolic Panel] Stat Lab 09/19/23 20:15 Completed INR [Prothrombin Time INR] Stat Lab 09/19/23 20:15 Completed ECG Data Tracing #1: Attestation: I reviewed this ECG and interpreted as documented below: ECG Narrative: Normal sinus rhythm with a ventricular rate of [address] changes concerning for ischemia. Normal axis and intervals. ECG initial impression date: 09/19/23 ECG initial impression time: 19:22
[2023-09-19 19:16] VITALS: BMI 34.4
--- NOTE | 2023-09-19 19:21 | CT_ITS ---
PROCEDURE INFORMATION: Exam: CT Thoracic Spine Without Contrast Exam date and time: 09/19/2023 7:56 PM Age: 67 years old Clinical indication: Injury or trauma; Fall; Blunt trauma (contusions or hematomas); Additional info: Fall on coumadin TECHNIQUE: Imaging protocol: Computed tomography of the thoracic spine without contrast. Radiation optimization: All CT scans at this facility use at least one of these dose optimization techniques: automated exposure control; mA and/or kV adjustment per patient size (includes targeted exams where dose is matched to clinical indication); or iterative reconstruction. COMPARISON: CT CERVICAL SPINE WO CON 09/19/2023 7:52 PM FINDINGS: Bones/joints: Osteopenia. Soft tissues: Unremarkable. Lymph nodes: Extensive calcified mediastinal lymph nodes IMPRESSION: No evidence of acute osseous injury.
--- NOTE | 2023-09-19 19:21 | CT_ITS ---
PROCEDURE INFORMATION: Exam: CT Cervical Spine Without Contrast Exam date and time: 09/19/2023 7:52 PM Age: 67 years old Clinical indication: Injury or trauma; Fall; Blunt trauma; Additional info: Fall on coumadin TECHNIQUE: Imaging protocol: Computed tomography of the cervical spine without contrast. Radiation optimization: All CT scans at this facility use at least one of these dose optimization techniques: automated exposure control; mA and/or kV adjustment per patient size (includes targeted exams where dose is matched to clinical indication); or iterative reconstruction. COMPARISON: MR CERVICAL SPINE WO CON 12/14/2021 9:00 AM FINDINGS: Bones: No evidence of acute cervical spine fracture or traumatic malalignment. Reversal of the normal cervical lordosis appears to relate to degenerative change. There is mild lower cervical degenerative disc and facet disease. There is right neural foraminal stenosis at C5-C6. Spinal canal is adequate throughout. Mild to moderate bilateral TMJ osteoarthritis. Pharynx: Normal fossa of Rosenmuller. Normal tonsillar pillars. Larynx: Epiglottis is obscured. Symmetric vocal folds. Lungs: Clear lung apices. Thyroid: Homogeneous thyroid. Soft tissues: Unremarkable. IMPRESSION: 1. No evidence of acute cervical spine fracture or traumatic malalignment. 2. Right neural foraminal stenosis at C5-C6. 3. Bilateral TMJ osteoarthritis.
--- NOTE | 2023-09-19 19:22 | CT_ITS ---
PROCEDURE INFORMATION: Exam: CT Head Without Contrast Exam date and time: 09/19/2023 7:52 PM Age: 67 years old Clinical indication: Injury or trauma; Fall; Blunt trauma (contusions or hematomas); Additional info: Fall on coumadin TECHNIQUE: Imaging protocol: Computed tomography of the head without contrast. Radiation optimization: All CT scans at this facility use at least one of these dose optimization techniques: automated exposure control; mA and/or kV adjustment per patient size (includes targeted exams where dose is matched to clinical indication); or iterative reconstruction. COMPARISON: MR HEAD/BRAIN WO/W CON 12/14/2021 9:00 AM FINDINGS: Brain: Diffuse cerebral volume loss noted throughout. Low attenuation noted in the white matter. No mass effect. No intra-axial or extra-axial hemorrhage. Preserved mejia-white interfaces. Cerebral ventricles: Mild ex vacuo ventriculomegaly. Paranasal sinuses: There is mural thickening of the maxillary sinuses bilaterally. Prior bilateral medial maxillary osteotomies. There is mucosal thickening in the right maxillary sinus. No features of acute sinus disease. Mastoid air cells: Visualized mastoid air cells are well aerated. Bones: No destructive lesion. No acute fracture. Soft tissues: Unremarkable. IMPRESSION: No evidence of acute intracranial hemorrhage, mass effect, or edema. Greater than expected involutional change for age. There appears to have been progression of white matter disease when compared to prior.
--- NOTE | 2023-09-19 19:43 | CT_ITS ---
PROCEDURE INFORMATION: Exam: CT Chest Without Contrast; Diagnostic Exam date and time: 09/19/2023 7:59 PM Age: 67 years old Clinical indication: Injury or trauma; Fall; Blunt trauma (contusions or hematomas); Additional info: Chest wall pain, fall TECHNIQUE: Imaging protocol: Diagnostic computed tomography of the chest without contrast. Radiation optimization: All CT scans at this facility use at least one of these dose optimization techniques: automated exposure control; mA and/or kV adjustment per patient size (includes targeted exams where dose is matched to clinical indication); or iterative reconstruction. COMPARISON: [facility] CT angio chest 06/10/2018 11:56 AM FINDINGS: Lungs: Calcified granuloma left upper lobe mediastinal window. Densely calcified granuloma laterally right lower lobe. Bibasilar atelectasis versus parenchymal scarring. Bilateral ground-glass regions of opacification. Findings nonspecific however most likely reflect interstitial lung disease. An acute inflammatory process could not be entirely excluded. 5 mm juxtapleural nodule anteriorly right middle lobe. Pleural spaces: Unremarkable. No pneumothorax. No pleural effusion. Heart: Mitral valve calcification Coronary arteries: Coronary artery calcification Lymph nodes: Calcified hilar mediastinal lymph nodes Vasculature: Regions of atherosclerotic vascular calcification involving the aortic arch. Diaphragm: Small hiatal hernia Bones/joints: Unremarkable. No acute fracture. Soft tissues: Unremarkable. IMPRESSION: 1. 5 mm juxtapleural nodule anteriorly right middle lobe. Recommend follow-up CT Chest in 6-12 months. (References: Jn and Quang) 2. No evidence of acute abnormality. REFERENCES: 1. Bonhohamilton H, et al. Guidelines for Management of Incidental Pulmonary Nodules Detected on CT Images: From the Fleischner Society 2017. Radiology. 2017;284(1):228-243. 2. Quang Moura, et al. Updated Fleischner Society Guidelines for Managing Incidental Pulmonary Nodules: Common Questions and Challenging Scenarios. Radiographics. 2018;38(5):6855-4830.
[2023-09-19] MEDS: ACETAMINOPHEN 500MG TAB 1000 MG PO (20:40)
[2023-09-19] MEDS: OXYCODONE 5MG IMMEDIATE RELEASE TABLET 5 MG PO (20:42)
[2023-09-19 20:51] LABS: Albumin Level 4.3 g/dl (3.5-5.0); Chloride 110 mmol/L (98-107); Potassium 3.7 mmoL/L (3.5-5.1); Sodium 140 mmol/L (136-145)
[2023-09-19 20:54] LABS: Alanine Aminotransferase 22 U/L (12-78); Albumin/Globulin Ratio 1.3 (1.1-1.8); Alkaline Phosphatase 87 U/L (38-126); Anion Gap 7.7 mEq/L (5-15); Aspartate Amino Transferase 31 U/L (14-36); Bilirubin,Total 0.6 mg/dl (0.2-1.3); Blood Urea Nitrogen 17 mg/dl (7-17); Carbon Dioxide 26 mmol/L (22.0-30.0); Creatinine Clearance Estimated 68 mL/min (50-200); Estimated Glomerular Filt Rate 45 ml/min (>60); GFR (African American) 54 ML/MIN (>60); Globulin 3.2 g/dL (1.3-3.2); Glucose 99 mg/dl (74-100); Total Protein,Serum 7.5 g/dl (6.3-8.2)
[2023-09-19 21:01] LABS: INR 2.24 (0.9-1.1); Prothrombin Time 23.2 seconds (10.1-12.5)
[2023-09-19 21:35] VITALS: BP 126/70; PULSE 66; RESP 18; TEMP 36.8; O2SAT 96
[2023-09-19 23:25] LABS: Basophils # 0.1 K/mm3 (0-0.2); Basophils % 1.1 % (0.1-2.0); Eosinophils # 0.3 K/mm3 (0.0-0.4); Eosinophils % 3.7 % (0.1-12.0); Hematocrit 39.7 % (37.0-47.0); Hemoglobin 12.8 g/dL (12.2-16.2); Lymphocytes # 2.3 K/mm3 (0.7-4.5); Lymphocytes % 27.5 % (10-50); Mean Corpuscular HGB Conc 32.1 g/dL (31.8-35.4); Mean Corpuscular Hemoglobin 33.3 pg (27.0-31.2); Mean Corpuscular Volume 103.7 fl (81-99); Mean Platelet Volume 9.5 fl (7.4-10.4); Monocytes # 0.4 K/mm3 (0.1-1.0); Monocytes % 4.8 % (1.7-9.3); Neutrophils # 5.3 K/mm3 (1.8-7.8); Platelet Count 265 K/mm3 (142-424); Red Blood Count 3.83 M/mm3 (4.20-5.40); Red Cell Distribution Width 14.4 % (11.5-17.5); White Blood Count 8.4 K/mm3 (4.8-10.8)
== END 2023-09-19 21:43 | disposition home or self-care (01) ==
PROVIDERS: Physician Assistant; Emergency Provider Emergency Medicine; PCP Nurse Practitioner Family
DX: R07.89 Other chest pain (principal); S00.83XA Contusion of other part of head, initial encounter; W18.39XA Other fall on same level, initial encounter
CPT/HCPCS: 70450; 71250; 72125; 72128; 80053; 85025; 85610; 93005; 99285

== ENCOUNTER 2023-10-04 11:19 | Outpatient (CLI) | payer MEDICARE, OTHER, SELFPAY ==
--- NOTE | 2023-10-04 11:28 | XR_ITS ---
FINAL REPORT CLINICAL HISTORY: LEFT FOOT PAIN ACUTE PAIN DUE TO TRAUMA COMPARISON: None FINDINGS: LEFT FOOT Three views of the left foot demonstrate no acute fracture or dislocation. The visualized joint spaces are normally aligned. The soft tissues are unremarkable. An orthopedic screw is present in the distal first metatarsal. IMPRESSION: No acute bony abnormality. Reviewed, Interpreted and Dictated by Neftali Sauceda MD Transcribed by Samira Hewitt Authenticated and . [facility]
== END 2023-10-04 23:59 | disposition home or self-care (01) ==
LOC: RAD 11:20
PROVIDERS: PCP Nurse Practitioner Family; Visit Provider Nurse Practitioner Family
DX: M79.672 Pain in left foot (principal); G89.11 Acute pain due to trauma
CPT/HCPCS: 73630

== ENCOUNTER 2023-11-01 12:56 | Outpatient (CLI) | payer MEDICARE, OTHER, SELFPAY ==
[2023-11-01 13:50] LABS: Amphetamine/Metha Screen,Urine Negative ng/ml (<1000); Barbiturates Screen,Urine Negative ng/ml (<200)
[2023-11-01 13:54] LABS: Benzodiazepines Screen,Urine Negative ng/ml (<200); Cocaine Screen,Urine Negative ng/ml (<300)
[2023-11-01 13:55] LABS: Cannabinoid Screen,Urine Positive ng/ml (<50); Methadone Screen,Urine Negative ng/ml (<300)
[2023-11-01 13:56] LABS: Opiate Screen,Urine Negative ng/ml (<300)
[2023-11-01 13:57] LABS: Phencyclidine Screen,Urine Negative ng/ml (<25)
== END 2023-11-01 23:59 | disposition home or self-care (01) ==
LOC: LAB 12:57
PROVIDERS: PCP Nurse Practitioner Family; Visit Provider Nurse Practitioner Family
DX: G89.29 Other chronic pain (principal); Z51.81 Encounter for therapeutic drug level monitoring
CPT/HCPCS: 80307

== ENCOUNTER 2023-11-04 10:08 | Outpatient (POV) | payer MEDICARE, OTHER, SELFPAY ==
[2023-11-04 11:31] VITALS: BP 122/71; PULSE 71; RESP 16; O2SAT 95; BMI 33.3
--- NOTE | 2023-11-04 12:55 | A.OFFVIS_ITS ---
[facility] Disclaimer: The information contained in this section may have been updated after the patient was seen, as this information can be updated by other users. Medical History Abnormal EKG Allergies Anxiety and depression Arthritis Asthma Chest pain Clotting disorder COPD (chronic obstructive pulmonary disease) COPD (chronic obstructive pulmonary disease) Diastolic dysfunction DVT (deep venous thrombosis) DVT (deep venous thrombosis) Eustachian tube dysfunction Fatigue Fatigue Fibromyalgia Gallbladder disease GERD (gastroesophageal reflux disease) Granulomatous lung disease Hiatal hernia History of sinus problem HLD (hyperlipidemia) HLD (hyperlipidemia) HTN (hypertension) Hypertension Kidney stones senior care (current) use of anticoagulants Lung disease Migraines Pulmonary embolism Pulmonary embolism SOB (shortness of breath) UTI (urinary tract infection) UTI (urinary tract infection) Surgical History H/O cardiac catheterization H/O left breast biopsy H/O sinus surgery H/O total hysterectomy History of bilateral carpal tunnel release History of colonoscopy History of esophagogastroduodenoscopy (EGD) History of tonsillectomy Hx of appendectomy Hx of cholecystectomy Previous back surgery x2 Family History Other Family history of alcoholism Family history of asthma Family history of bleeding disorder Family history of cancer Family history of diabetes mellitus (DM) Family history of hyperlipidemia Family history of hypertension Family history of myocardial infarction Family history of stroke Family history of substance abuse Social History Smoking Status: Current every day smoker tobacco type: cigarettes packs per day: 1 second hand exposure: No alcohol intake: current alcohol intake frequency: holidays/special occasions only substance use type: denies use current occupational status: other Travel in the last 8 weeks: None household members: spouse housing: house current occupational exposures/hazards: Yes caffeine: Yes PM Subjective & Objective Subjective Subjective:: Patient is a pleasant 68-year-old female who presents today for follow-up of bilateral knee intra-articular injections on 08/16/2023. Today she rates her pain a 6 out of 10. Patient does state that she got approximately 80% relief with these injections however they are now starting to wear off. Patient does state that both her knees are [id number] and that the pain is fairly constant especially when she is up walking or moving. Patient does state the pain interferes with her ability perform activities of daily living such as cooking and cleaning. Patient does get significant improvement through these injections and that they do typically last right about 3 months. Patient does states she is interested in repeating these injections. Patient is prescribed gabapentin and tramadol from her PCP and compounded cream from our office. She denies any side effects. Her Oneal has been reviewed and is appropriate. Review of Systems: General: No recent weight changes, no fever, no sleep disturbances Respiratory: No cough, no shortness of air, no recurring pulmonary infections Cardiovascular/peripheral vascular: No chest pain, no palpitations, no edema, no shortness of breath Gastrointestinal: No new onset incontinence, normal bowel movements reported Genitourinary: No new onset incontinence Musculoskeletal: Bilateral knee pain Psychiatric: [Normal mood/affect] Neurological: [Denies weakness in extremities], [denies balance issues] Pain at rest (0-10 scale): 6 Objective Objective:: Physical Exam: General: Alert and oriented x3, no acute distress, pleasant and cooperative Lungs: Respirations even and unlabored, symmetrical chest expansion Eyes: PERRL Musculoskeletal: Flexion and extension of bilateral knees somewhat guarded secondary to pain, [antalgic gait noted] Neurological: Speech clear, no gross sensory deficit Has patient had previous pain injection?: Yes Percent improvement in pain since last injection: 80% Conservative treatment options previously tried: Home exercise plan Length of treatment: Longer than 12 weeks Meds Home Medications and Allergies Home Medications ?Medication ?Instructions ?Recorded ?Confirmed ?Type cholecalciferol (vitamin D3) 25 4,000 unit PO DAILY Supplement 05/24/17 11/04/23 History mcg (1,000 unit) capsule duloxetine 60 mg capsule,delayed 60 mg PO BID Depression 05/24/17 11/04/23 History release fluticasone propionate 50 9.9 ml intranasal DAILY allergies 05/24/17 11/04/23 History mcg/actuation nasal spray,suspension montelukast 10 mg tablet 10 mg PO PM Asthma 05/24/17 11/04/23 History tramadol 50 mg tablet 50 mg PO BID Pain 05/24/17 11/04/23 History aspirin 81 mg tablet,delayed 81 mg PO HS Blood thinner 12/19/18 11/04/23 History release levocetirizine 5 mg tablet 5 mg PO HS Allergy symptoms 12/19/18 11/04/23 History oxybutynin chloride 5 mg tablet 5 mg PO TID overactive bladder 12/19/18 11/04/23 History ondansetron 4 mg disintegrating 4 mg PO Q8HP PRN Nausea ##20 02/07/19 11/04/23 Rx tablet atorvastatin 20 mg tablet 40 mg PO DAILY Cholesterol 04/03/19 11/04/23 History albuterol sulfate 90 mcg/actuation 2 puffs inhalation Q4HP PRN 04/10/19 11/04/23 History aerosol inhaler Shortness Of Breath Or Wheezing fluticasone 500 mcg-salmeterol 50 1 puff inhalation BID COPD 03/25/20 11/04/23 History mcg/dose blistr powdr for inhalation magnesium 250 mg tablet 250 mg PO DAILY Supplement 04/30/20 11/04/23 History gabapentin 300 mg capsule 300 mg PO TID nerve pain 04/28/21 11/04/23 History metaxalone 800 mg tablet 800 mg PO NEEDED PRN pain 04/28/21 11/04/23 History warfarin 5 mg tablet 7.5 mg PO DAILY BLOOD CLOTS 04/29/21 11/04/23 History amitriptyline 50 mg tablet 50 mg PO HS MOOD 04/29/22 11/04/23 History omeprazole 20 mg capsule,delayed 20 mg PO DAILY GERD 04/29/22 11/04/23 History release ropinirole 1 mg tablet 1 mg PO HS Pain 04/29/22 11/04/23 History hydroxyzine HCl 50 mg tablet 50 mg PO Q8H PRN itching #20 tabs 09/04/22 11/04/23 Rx levofloxacin 500 mg tablet 500 mg PO DAILY 5 days #5 tabs 02/17/23 11/04/23 Rx phenazopyridine 200 mg tablet 200 mg PO Q8H pain 2 days #6 tabs 02/17/23 11/04/23 Rx (Pyridium) amlodipine 5 mg tablet See Rx Instructions .Route 10/17/23 11/04/23 Rx .COMPLEX #90 tabs New Prescriptions to Start Prescriptions: Allergies Allergy/AdvReac Type Severity Reaction Status Date / Time Sulfa (Sulfonamide Allergy Severe Hives Verified 08/16/23 11:18 Antibiotics) adhesive Allergy Unknown S-BLISTERING Verified 08/16/23 11:18 WELTS amoxicillin [From Augmentin] Allergy Unknown Rash Verified 08/16/23 11:18 cefdinir Allergy Unknown I-RASH Verified 08/16/23 11:18 clarithromycin Allergy Unknown I-RASH Verified 08/16/23 11:18 clavulanic acid Allergy Unknown Rash Verified 08/16/23 11:18 codeine Allergy Unknown NA-NAUSEA/V Verified 08/16/23 11:18 OMITING latex Allergy Unknown S-BLISTERING Verified 08/16/23 11:18 WELTS nitrofurantoin Allergy Unknown Unknown Verified 08/16/23 11:18 [From Macrobid] allergy reaction sulfamethoxazole Allergy Unknown I-RASH,DIAR Verified 08/16/23 11:18 [From Bactrim] HEA trimethoprim [From Bactrim] Allergy Unknown I-RASH,DIAR Verified 08/16/23 11:18 MARY JO Assessment and Plan *Assessment and plan (1) Bilateral knee pain: Status: Acute Qualifiers: Chronicity: chronic Qualified Code(s): M25.561 - Pain in right knee; M25.562 - Pain in left knee; G89.29 - Other chronic pain Category: Medical Code(s): M25.561 - Pain in right knee; M25.562 - Pain in left knee Plan Patient did have significant relief with her last intra-articular injections however she is coming up almost on that 3-month mita. Patient is starting to experience more pain in her bilateral knees and does have limited range of motion during today's exam. I did discuss with the patient due to her significant improvement that she does get with these injections of more than 80% with the last ones that she may benefit from repeat injections. Risk and benefits were discussed with the patient and she would like to proceed forward with this plan of care. Patient has tried and failed conservative therapy including continued at home stretching exercise for longer than 12 weeks. Patient will be scheduled for bilateral knee intra-articular injections. Patient has been instructed to contact the clinic with any concerns before the next appointment. Dr. Walls has reviewed this note and agrees with this plan of care. This note was dictated using voice recognition software and make contain errors or omissions. All injections are used with Lidocaine or Bupivacaine and Depo Medrol.
== END 2023-11-04 23:59 ==
LOC: SC.PAIN 10:09
PROVIDERS: PCP Nurse Practitioner Family; Visit Provider Nurse Practitioner Family
DX: M25.561 Pain in right knee (principal); M25.562 Pain in left knee; G89.29 Other chronic pain; F17.210 Nicotine dependence, cigarettes, uncomplicated; Z73.89 Other problems related to life management difficulty; Z79.899 Other long term (current) drug therapy
CPT/HCPCS: 99212; G0463

== ENCOUNTER 2023-12-06 09:51 | Day surgery (SDC) | payer MEDICARE, OTHER, SELFPAY ==
[2023-12-06 10:41] VITALS: BP 117/72; PULSE 73; RESP 16; TEMP 36.7; O2SAT 96; BMI 33.3
[2023-12-06 11:15] VITALS: BP 170/97; PULSE 72; RESP 18; O2SAT 97
[2023-12-06] MEDS: methylPREDNISolone ACETATE 80MG/ML VIAL 80 MG (11:15)
[2023-12-06] MEDS: BUPIVACAINE 0.25% 10ML INJ 25 MG IJ (11:15)
[2023-12-06] MEDS: LIDOCAINE 1% 5ML PF VIAL 5 ML (11:15)
[2023-12-06 11:17] VITALS: BP 170/87; PULSE 80; RESP 18; O2SAT 97
--- NOTE | 2023-12-06 11:17 | EXP.PAIN.PRO ---
Procedure Date: 12/06/23 Time: 11:00 Anesthesiologist:: Dustin Jaquez CRNA Complications:: None Pre-procedure Diagnosis:: DJD bilateral knees. Chronic bilateral knee pain. Post-procedure Diagnosis:: Same. Indications for Procedure:: Patient is a very pleasant 68-year-old female who comes our clinic today for bilateral intra-articular knee injections of cortisone and local anesthetic. Patient describes bilateral knee pain as constant, dull, aching. Patient reports pain intensifies with ambulation. Pain intensifies with stairs. She rates her pain 8/10. Procedure Details:: Procedure Details: Bilateral intra-articular knee injection Informed consent was obtained risk and benefits of the procedure were explained to the patient. Patient was taken the procedure room both knees were prepped using ChloraPrep. A 25-gauge needle was used to inject 10 mL bupivacaine 0.25% and Depo-Medrol 40 mg into each knee. We did a total of 80 mg Depo-Medrol for both knees. The patient tolerated the procedure well with no complications. Plan and Disposition:: Patient was discharged without incident.
[2023-12-06 11:35] VITALS: BP 133/74; PULSE 78; RESP 16; O2SAT 98
== END 2023-12-06 11:35 | disposition home or self-care (01) ==
PROVIDERS: PCP Nurse Practitioner Family; Visit Provider Nurse Anesthetist, Certified Registered
DX: M17.0 Bilateral primary osteoarthritis of knee (principal); M25.561 Pain in right knee; M25.562 Pain in left knee; G89.29 Other chronic pain
CPT/HCPCS: 20610; J1010

== ENCOUNTER 2023-12-21 10:31 | Outpatient (POV) | payer MEDICARE, OTHER, SELFPAY ==
[2023-12-21 11:06] VITALS: BP 129/88; PULSE 67; RESP 14; O2SAT 96; BMI 33.3
--- NOTE | 2023-12-21 11:15 | A.OFFVIS_ITS ---
[facility] Disclaimer: The information contained in this section may have been updated after the patient was seen, as this information can be updated by other users. Medical History Abnormal EKG Allergies Anxiety and depression Arthritis Asthma Chest pain Clotting disorder COPD (chronic obstructive pulmonary disease) COPD (chronic obstructive pulmonary disease) Diastolic dysfunction DVT (deep venous thrombosis) DVT (deep venous thrombosis) Eustachian tube dysfunction Fatigue Fatigue Fibromyalgia Gallbladder disease GERD (gastroesophageal reflux disease) Granulomatous lung disease Hiatal hernia History of sinus problem HLD (hyperlipidemia) HLD (hyperlipidemia) HTN (hypertension) Hypertension Kidney stones intermediate (current) use of anticoagulants Lung disease Migraines Pulmonary embolism Pulmonary embolism SOB (shortness of breath) UTI (urinary tract infection) UTI (urinary tract infection) Surgical History H/O cardiac catheterization H/O left breast biopsy H/O sinus surgery H/O total hysterectomy History of bilateral carpal tunnel release History of colonoscopy History of esophagogastroduodenoscopy (EGD) History of tonsillectomy Hx of appendectomy Hx of cholecystectomy Previous back surgery x2 Family History Other Family history of alcoholism Family history of asthma Family history of bleeding disorder Family history of cancer Family history of diabetes mellitus (DM) Family history of hyperlipidemia Family history of hypertension Family history of myocardial infarction Family history of stroke Family history of substance abuse Social History Smoking Status: Current every day smoker tobacco type: cigarettes packs per day: 1 second hand exposure: No alcohol intake: current alcohol intake frequency: holidays/special occasions only substance use type: denies use current occupational status: other Travel in the last 8 weeks: None household members: spouse housing: house current occupational exposures/hazards: Yes caffeine: Yes PM Subjective & Objective Subjective Subjective:: Patient is a pleasant 68-year-old female who presents today for bilateral intra- articular knee injections on 12/06/2023. Today she rates her pain a 1 out of 10. Patient does state that she has had at least 90% improvement and feels like it is still helping. Patient states she has been able to move around easier and does have much better function. Patient is prescribed gabapentin and tramadol from her PCP and compounded cream from our office. Her Oneal has been reviewed and is appropriate. Review of Systems: General: No recent weight changes, no fever, no sleep disturbances Respiratory: No cough, no shortness of air, no recurring pulmonary infections Cardiovascular/peripheral vascular: No chest pain, no palpitations, no edema, no shortness of breath Gastrointestinal: No new onset incontinence, normal bowel movements reported Genitourinary: No new onset incontinence Musculoskeletal: Bilateral knee pain Psychiatric: [Normal mood/affect] Neurological: [Denies weakness in extremities], [denies balance issues] Pain at rest (0-10 scale): 1 Objective Objective:: Physical Exam: General: Alert and oriented x3, no acute distress, pleasant and cooperative Lungs: Respirations even and unlabored, symmetrical chest expansion Eyes: PERRL Musculoskeletal: Flexion and extension of bilateral knees somewhat guarded secondary to pain, [antalgic gait noted] Neurological: Speech clear, no gross sensory deficit Has patient had previous pain injection?: Yes Percent improvement in pain since last injection: 90% Conservative treatment options previously tried: Home exercise plan Length of treatment: Longer than 12 weeks Meds Home Medications and Allergies Home Medications ?Medication ?Instructions ?Recorded ?Confirmed ?Type cholecalciferol (vitamin D3) 25 4,000 unit PO DAILY Supplement 05/24/17 12/21/23 History mcg (1,000 unit) capsule duloxetine 60 mg capsule,delayed 60 mg PO BID Depression 05/24/17 12/21/23 History release fluticasone propionate 50 9.9 ml intranasal DAILY allergies 05/24/17 12/21/23 History mcg/actuation nasal spray,suspension montelukast 10 mg tablet 10 mg PO PM Asthma 05/24/17 12/21/23 History tramadol 50 mg tablet 50 mg PO BID Pain 05/24/17 12/21/23 History aspirin 81 mg tablet,delayed 81 mg PO HS Blood thinner 12/19/18 12/21/23 History release levocetirizine 5 mg tablet 5 mg PO HS Allergy symptoms 12/19/18 12/21/23 History oxybutynin chloride 5 mg tablet 5 mg PO TID overactive bladder 12/19/18 12/21/23 History ondansetron 4 mg disintegrating 4 mg PO Q8HP PRN Nausea ##20 02/07/19 12/21/23 Rx tablet atorvastatin 20 mg tablet 40 mg PO DAILY Cholesterol 04/03/19 12/21/23 History albuterol sulfate 90 mcg/actuation 2 puffs inhalation Q4HP PRN 04/10/19 12/21/23 History aerosol inhaler Shortness Of Breath Or Wheezing fluticasone 500 mcg-salmeterol 50 1 puff inhalation BID COPD 03/25/20 12/21/23 History mcg/dose blistr powdr for inhalation magnesium 250 mg tablet 250 mg PO DAILY Supplement 04/30/20 12/21/23 History gabapentin 300 mg capsule 300 mg PO TID nerve pain 04/28/21 12/21/23 History metaxalone 800 mg tablet 800 mg PO NEEDED PRN pain 04/28/21 12/21/23 History warfarin 5 mg tablet 7.5 mg PO DAILY BLOOD CLOTS 04/29/21 12/21/23 History amitriptyline 50 mg tablet 50 mg PO HS MOOD 04/29/22 12/21/23 History omeprazole 20 mg capsule,delayed 20 mg PO DAILY GERD 04/29/22 12/21/23 History release ropinirole 1 mg tablet 1 mg PO HS Pain 04/29/22 12/21/23 History hydroxyzine HCl 50 mg tablet 50 mg PO Q8H PRN itching #20 tabs 09/04/22 12/21/23 Rx levofloxacin 500 mg tablet 500 mg PO DAILY 5 days #5 tabs 02/17/23 12/21/23 Rx phenazopyridine 200 mg tablet 200 mg PO Q8H pain 2 days #6 tabs 02/17/23 12/21/23 Rx (Pyridium) amlodipine 5 mg tablet See Rx Instructions .Route 10/17/23 12/21/23 Rx .COMPLEX #90 tabs New Prescriptions to Start Prescriptions: Allergies Allergy/AdvReac Type Severity Reaction Status Date / Time Sulfa (Sulfonamide Allergy Severe Hives Verified 08/16/23 11:18 Antibiotics) adhesive Allergy Unknown S-BLISTERING Verified 08/16/23 11:18 WELTS amoxicillin (From Augmentin) Allergy Unknown Rash Verified 08/16/23 11:18 cefdinir Allergy Unknown I-RASH Verified 08/16/23 11:18 clarithromycin Allergy Unknown I-RASH Verified 08/16/23 11:18 clavulanic acid Allergy Unknown Rash Verified 08/16/23 11:18 codeine Allergy Unknown NA-NAUSEA/V Verified 08/16/23 11:18 OMITING latex Allergy Unknown S-BLISTERING Verified 08/16/23 11:18 WELTS nitrofurantoin (From Allergy Unknown Unknown Verified 08/16/23 11:18 Macrobid) allergy reaction sulfamethoxazole (From Allergy Unknown I-RASH,DIAR Verified 08/16/23 11:18 Bactrim) HEA trimethoprim (From Bactrim) Allergy Unknown I-RASH,DIAR Verified 08/16/23 11:18 MARY JO Assessment and Plan *Assessment and plan (1) Bilateral knee pain: Status: Acute Qualifiers: Chronicity: chronic Qualified Code(s): M25.561 - Pain in right knee; M25.562 - Pain in left knee; G89.29 - Other chronic pain Category: Medical Code(s): M25.561 - Pain in right knee; M25.562 - Pain in left knee Plan Patient has had significant improvement following her bilateral knee intra- articular injections and does not require any additional injection therapy at this time. Patient will return to clinic in February for reevaluation of symptoms and plan of care. Patient has been instructed to contact the clinic with any concerns before the next appointment. Dr. Walls has reviewed this note and agrees with this plan of care. This note was dictated using voice recognition software and make contain errors or omissions. All injections are used with Lidocaine or Bupivacaine and Depo Medrol.
== END 2023-12-21 23:59 | disposition home or self-care (01) ==
LOC: SC.PAIN 10:33
PROVIDERS: PCP Nurse Practitioner Family; Visit Provider Nurse Practitioner Family
DX: M25.561 Pain in right knee (principal); M25.562 Pain in left knee; G89.29 Other chronic pain; F17.210 Nicotine dependence, cigarettes, uncomplicated; Z79.899 Other long term (current) drug therapy
CPT/HCPCS: 99212; G0463

== ENCOUNTER 2024-01-10 10:45 | Outpatient (CLI) | payer MEDICARE, OTHER, SELFPAY ==
[2024-01-10 11:19] LABS: Basophils # 0.1 K/mm3 (0-0.2); Basophils % 1.1 % (0.1-2.0); Eosinophils # 0.3 K/mm3 (0.0-0.4); Eosinophils % 3.4 % (0.1-12.0); Hematocrit 38.9 % (37.0-47.0); Hemoglobin 13.3 g/dL (12.2-16.2); Lymphocytes # 1.7 K/mm3 (0.7-4.5); Lymphocytes % 21.7 % (10-50); Mean Corpuscular HGB Conc 34.1 g/dL (31.8-35.4); Mean Corpuscular Hemoglobin 32.8 pg (27.0-31.2); Mean Corpuscular Volume 96.2 fl (81-99); Mean Platelet Volume 7.6 fl (7.4-10.4); Monocytes # 0.4 K/mm3 (0.1-1.0); Monocytes % 5.7 % (1.7-9.3); Neutrophils # 5.3 K/mm3 (1.8-7.8); Neutrophils % 68.1 % (37.0-80.0); Platelet Count 243 K/mm3 (142-424); Red Blood Count 4.05 M/mm3 (4.20-5.40); Red Cell Distribution Width 14.8 % (11.5-17.5); White Blood Count 7.8 K/mm3 (4.8-10.8)
[2024-01-10 11:33] LABS: INR 2.45 (0.9-1.1); Prothrombin Time 25.1 seconds (10.1-12.5)
[2024-01-10 11:34] LABS: Alanine Aminotransferase 20 U/L (12-78); Albumin Level 4.1 g/dl (3.5-5.0); Albumin/Globulin Ratio 1.6 (1.1-1.8); Alkaline Phosphatase 85 U/L (38-126); Anion Gap 10.3 mEq/L (5-15); Aspartate Amino Transferase 21 U/L (14-36); Bilirubin,Total 0.6 mg/dl (0.2-1.3); Blood Urea Nitrogen 13 mg/dl (7-17); Calcium 9.5 mg/dl (8.4-10.2); Carbon Dioxide 29 mmol/L (22.0-30.0); Chloride 108 mmol/L (98-107); Chol/HDL Ratio 4.1 (1-3.5); Cholesterol 222 mg/dl (140-200); Estimated Glomerular Filt Rate 83 ml/min (>60); GFR (African American) 101 ML/MIN (>60); Globulin 2.6 g/dL (1.3-3.2); Glucose 122 mg/dl (74-100); HDL Cholesterol 54 mg/dl (40-60); Potassium 4.3 mmoL/L (3.5-5.1); Sodium 143 mmol/L (136-145); Total Protein,Serum 6.7 g/dl (6.3-8.2); Triglycerides 114 mg/dl (30-150); VLDL Cholesterol 23 mg/dL (0-40)
[2024-01-10 11:45] LABS: Direct LDL Cholesterol 143.39 mg/dL (100-129)
== END 2024-01-10 23:59 | disposition home or self-care (01) ==
LOC: LAB 10:49
PROVIDERS: PCP Nurse Practitioner Family; Visit Provider Nurse Practitioner Family
DX: E78.2 Mixed hyperlipidemia (principal); Z86.711 Personal history of pulmonary embolism; I10 Essential (primary) hypertension
CPT/HCPCS: 36415; 80053; 80061; 85025; 85610

== ENCOUNTER 2024-03-01 09:23 | Outpatient (POV) | payer MEDICARE, OTHER, SELFPAY ==
--- NOTE | 2024-03-01 10:09 | A.OFFVIS_ITS ---
[facility] Disclaimer: The information contained in this section may have been updated after the patient was seen, as this information can be updated by other users. Medical History Abnormal EKG Allergies Anxiety and depression Arthritis Asthma Chest pain Clotting disorder COPD (chronic obstructive pulmonary disease) COPD (chronic obstructive pulmonary disease) Diastolic dysfunction DVT (deep venous thrombosis) DVT (deep venous thrombosis) Eustachian tube dysfunction Fatigue Fatigue Fibromyalgia Gallbladder disease GERD (gastroesophageal reflux disease) Granulomatous lung disease Hiatal hernia History of sinus problem HLD (hyperlipidemia) HLD (hyperlipidemia) HTN (hypertension) Hypertension Kidney stones MCC (current) use of anticoagulants Lung disease Migraines Pulmonary embolism Pulmonary embolism SOB (shortness of breath) UTI (urinary tract infection) UTI (urinary tract infection) Surgical History H/O cardiac catheterization H/O left breast biopsy H/O sinus surgery H/O total hysterectomy History of bilateral carpal tunnel release History of colonoscopy History of esophagogastroduodenoscopy (EGD) History of tonsillectomy Hx of appendectomy Hx of cholecystectomy Previous back surgery x2 Family History Other Family history of alcoholism Family history of asthma Family history of bleeding disorder Family history of cancer Family history of diabetes mellitus (DM) Family history of hyperlipidemia Family history of hypertension Family history of myocardial infarction Family history of stroke Family history of substance abuse Social History Smoking Status: Current every day smoker tobacco type: cigarettes packs per day: 1 second hand exposure: No alcohol intake: current alcohol intake frequency: holidays/special occasions only substance use type: denies use current occupational status: other Travel in the last 8 weeks: None household members: spouse housing: house current occupational exposures/hazards: Yes caffeine: Yes PM Subjective & Objective Subjective Subjective:: Patient is a pleasant 68-year-old female who presents today for follow-up and worsening pain in her left shoulder. Today she rates her bilateral knee pain a 0 out of 10 she states that she still gotten significant relief with her last injections and that those have continued to do well. She does rate her shoulder pain at least a 5 out of 10. She describes it just as a horrible pain in general that is worse with increased activity or range of motion. She does state the pain is interfering with her ability perform activities of daily living. She is interested in injection therapy due to the severity of pain. She has continued conservative treatment including oral medications, heat and ice, topicals, at home stretching exercises for longer than 12 weeks. Patient is prescribed gabapentin and tramadol from her PCP and compounded cream from our office. Her Oneal has been reviewed and is appropriate. Review of Systems: General: No recent weight changes, no fever, no sleep disturbances Respiratory: No cough, no shortness of air, no recurring pulmonary infections Cardiovascular/peripheral vascular: No chest pain, no palpitations, no edema, no shortness of breath Gastrointestinal: No new onset incontinence, normal bowel movements reported Genitourinary: No new onset incontinence Musculoskeletal: Left shoulder pain Psychiatric: [Normal mood/affect] Neurological: [Denies weakness in extremities], [denies balance issues] Pain at rest (0-10 scale): 5 Objective Objective:: Physical Exam: General: Alert and oriented x3, no acute distress, pleasant and cooperative Lungs: Respirations even and unlabored, symmetrical chest expansion Eyes: PERRL Musculoskeletal: Flexion and extension of left shoulder somewhat guarded secondary to pain, [antalgic gait noted] Neurological: Speech clear, no gross sensory deficit Has patient had previous pain injection?: No Conservative treatment options previously tried: Home exercise plan Length of treatment: Longer than 12 weeks Meds Home Medications and Allergies Home Medications ?Medication ?Instructions ?Recorded ?Confirmed ?Type cholecalciferol (vitamin D3) 25 4,000 unit PO DAILY Supplement 05/24/17 12/21/23 History mcg (1,000 unit) capsule duloxetine 60 mg capsule,delayed 60 mg PO BID Depression 05/24/17 12/21/23 History release fluticasone propionate 50 9.9 ml intranasal DAILY allergies 05/24/17 12/21/23 History mcg/actuation nasal spray,suspension montelukast 10 mg tablet 10 mg PO PM Asthma 05/24/17 12/21/23 History tramadol 50 mg tablet 50 mg PO BID Pain 05/24/17 12/21/23 History aspirin 81 mg tablet,delayed 81 mg PO HS Blood thinner 12/19/18 12/21/23 History release levocetirizine 5 mg tablet 5 mg PO HS Allergy symptoms 12/19/18 12/21/23 History oxybutynin chloride 5 mg tablet 5 mg PO TID overactive bladder 12/19/18 12/21/23 History ondansetron 4 mg disintegrating 4 mg PO Q8HP PRN Nausea ##20 02/07/19 12/21/23 Rx tablet atorvastatin 20 mg tablet 40 mg PO DAILY Cholesterol 04/03/19 12/21/23 History albuterol sulfate 90 mcg/actuation 2 puffs inhalation Q4HP PRN 04/10/19 12/21/23 History aerosol inhaler Shortness Of Breath Or Wheezing fluticasone 500 mcg-salmeterol 50 1 puff inhalation BID COPD 03/25/20 12/21/23 History mcg/dose blistr powdr for inhalation magnesium 250 mg tablet 250 mg PO DAILY Supplement 04/30/20 12/21/23 History gabapentin 300 mg capsule 300 mg PO TID nerve pain 04/28/21 12/21/23 History metaxalone 800 mg tablet 800 mg PO NEEDED PRN pain 04/28/21 12/21/23 History warfarin 5 mg tablet 7.5 mg PO DAILY BLOOD CLOTS 04/29/21 12/21/23 History amitriptyline 50 mg tablet 50 mg PO HS MOOD 04/29/22 12/21/23 History ropinirole 1 mg tablet 1 mg PO HS Pain 04/29/22 12/21/23 History hydroxyzine HCl 50 mg tablet 50 mg PO Q8H PRN itching #20 tabs 09/04/22 12/21/23 Rx levofloxacin 500 mg tablet 500 mg PO DAILY 5 days #5 tabs 02/17/23 12/21/23 Rx phenazopyridine 200 mg tablet 200 mg PO Q8H pain 2 days #6 tabs 02/17/23 12/21/23 Rx (Pyridium) amlodipine 5 mg tablet See Rx Instructions .Route 10/17/23 12/21/23 Rx .COMPLEX #90 tabs omeprazole 20 mg capsule,delayed 20 mg PO DAILY GERD #90 caps 01/24/24 Rx release New Prescriptions to Start Prescriptions: Allergies Allergy/AdvReac Type Severity Reaction Status Date / Time Sulfa (Sulfonamide Allergy Severe Hives Verified 08/16/23 11:18 Antibiotics) adhesive Allergy Unknown S-BLISTERING Verified 08/16/23 11:18 WELTS amoxicillin (From Augmentin) Allergy Unknown Rash Verified 08/16/23 11:18 cefdinir Allergy Unknown I-RASH Verified 08/16/23 11:18 clarithromycin Allergy Unknown I-RASH Verified 08/16/23 11:18 clavulanic acid Allergy Unknown Rash Verified 08/16/23 11:18 codeine Allergy Unknown NA-NAUSEA/V Verified 08/16/23 11:18 OMITING latex Allergy Unknown S-BLISTERING Verified 08/16/23 11:18 WELTS nitrofurantoin (From Allergy Unknown Unknown Verified 08/16/23 11:18 Macrobid) allergy reaction sulfamethoxazole (From Allergy Unknown I-RASH,DIAR Verified 08/16/23 11:18 Bactrim) HEA trimethoprim (From Bactrim) Allergy Unknown I-RASH,DIAR Verified 08/16/23 11:18 MARY JO Assessment and Plan *Assessment and plan (1) Left shoulder pain: Status: Acute Category: Medical Code(s): M25.512 - Pain in left shoulder Plan Patient is experiencing chronic pain in her left shoulder with very limited range of motion. Patient was recommended that she may benefit from an intra- articular shoulder injection. Patient denies any prior surgery in this joint. Risk and benefits were discussed with the patient and she would like to proceed forward with this plan of care. Patient has tried and failed conservative therapy including continued at home stretching exercise that was physician guided for longer than 12 weeks in between injections. Patient has had intra- articular injections in her right shoulder however has not had any of the left shoulder joint from our office. Patient does typically get significant relief with them on the right side with her last 1 in 2023 that did provide 70% improve ment and has continued to last for more than 3 months. Patient will be scheduled for a left shoulder intra-articular injection. This will be done without fluoroscopic guidance or ultrasound. Patient has been instructed to contact the clinic with any concerns before the next appointment. Dr. Walls has reviewed this note and agrees with this plan of care. This note was dictated using voice recognition software and make contain errors or omissions. All injections are used with Lidocaine, Bupivacaine and Depo Medrol. Occasionally urine drug screen is needed to verify patient's compliance with our office pain contract. This is ordered based off specific treatments related to chronic pain with the potential to abuse certain medications.
[2024-03-01 10:57] VITALS: BP 140/74; PULSE 67; RESP 14; O2SAT 97; BMI 34.1
== END 2024-03-01 23:59 | disposition home or self-care (01) ==
LOC: SC.PAIN 09:25
PROVIDERS: PCP Nurse Practitioner Family; Visit Provider Nurse Practitioner Family
DX: M25.512 Pain in left shoulder (principal); F17.210 Nicotine dependence, cigarettes, uncomplicated; Z73.89 Other problems related to life management difficulty; Z79.899 Other long term (current) drug therapy
CPT/HCPCS: 99212; G0463

== ENCOUNTER 2024-03-06 11:41 | Outpatient (CLI) | payer MEDICARE, OTHER, SELFPAY ==
--- NOTE | 2024-03-06 11:47 | XR_ITS ---
FINAL REPORT CLINICAL HISTORY: Foot Pain COMPARISON: None FINDINGS: RIGHT FOOT 3 views of the right foot were obtained. There is no acute fracture or dislocation. There is a moderate to marked hallux valgus deformity. Mild lateral subluxation is noted of the 1st proximal phalanx. There are moderate hypertrophic changes of the 1st MTP. Soft tissues are unremarkable. IMPRESSION: Degenerative/chronic changes without acute bony abnormality. Reviewed, Interpreted and Dictated by Neftali Sauceda MD Transcribed by Meryl Chung Authenticated and [facility]
--- NOTE | 2024-03-06 11:47 | XR_ITS ---
FINAL REPORT CLINICAL HISTORY: Foot Pain FINDINGS: LEFT FOOT Three views of the left foot demonstrate an orthopedic screws securing a healed osteotomy of the distal 1st metatarsal. There is no acute fracture or dislocation. There is mild narrowing of the 1st metatarsal phalangeal joint. The soft tissues are unremarkable. IMPRESSION: Postoperative and degenerative changes without acute bony abnormality. Reviewed, Interpreted and Dictated by Neftali Sauceda MD Transcribed by Meryl Chung Authenticated and [facility]
== END 2024-03-06 23:59 | disposition home or self-care (01) ==
LOC: RAD 11:43
PROVIDERS: PCP Nurse Practitioner Family; Visit Provider Podiatrist
DX: M79.671 Pain in right foot (principal); M79.672 Pain in left foot
CPT/HCPCS: 73630

== ENCOUNTER 2024-03-13 09:58 | Day surgery (SDC) | payer MEDICARE, OTHER, SELFPAY ==
--- NOTE | 2024-03-13 10:46 | EXP.PAIN.PRO ---
Procedure Date: 03/13/24 Time: 10:40 Anesthesiologist:: Dustin Jaquez CRNA Complications:: None Pre-procedure Diagnosis:: DJD left shoulder. Chronic left shoulder pain. Post-procedure Diagnosis:: Same. Indications for Procedure:: Patient is a pleasant 68-year-old female comes our clinic today for a left intra-articular shoulder joint injection of cortisone and local anesthetic. Patient has 5/5 strength in the left arm. However, limited range of motion secondary to left shoulder pain. Patient reports responding very well in the past to intra-articular cortisone injections. She rates her pain 7/10. Procedure Details:: Procedure Details: Left shoulder intra-articular injection Informed consent was obtained risk and benefits of the procedure were explained to the patient. Patient was taken to the procedure room. The Left shoulder was prepped using ChloraPrep. A 25-gauge needle was used posteriorly to inject 10 mL bupivacaine 0.25% and Depo-Medrol 40 mg. Patient tolerated procedure well with no complications. Plan and Disposition:: Patient was discharged without incident.
[2024-03-13 10:55] VITALS: BP 169/99; PULSE 92; RESP 16; TEMP 36.4; O2SAT 97; BMI 33.7
[2024-03-13 11:03] VITALS: BP 134/70; PULSE 72; RESP 16; O2SAT 100
[2024-03-13] MEDS: LIDOCAINE 1% 5ML PF VIAL 5 ML (11:15)
[2024-03-13] MEDS: BUPIVACAINE 0.25% 10ML INJ 25 MG IJ (11:16)
[2024-03-13] MEDS: methylPREDNISolone ACETATE 80MG/ML VIAL 80 MG (11:16)
== END 2024-03-13 11:03 | disposition home or self-care (01) ==
PROVIDERS: PCP Nurse Practitioner Family; Visit Provider Nurse Anesthetist, Certified Registered
DX: M19.011 Primary osteoarthritis, right shoulder (principal); M25.512 Pain in left shoulder; G89.29 Other chronic pain
CPT/HCPCS: 20610; J1010

== ENCOUNTER 2024-03-20 12:38 | Outpatient (CLI) | payer MEDICARE, OTHER, SELFPAY ==
--- NOTE | 2024-03-20 12:39 | MR_ITS ---
FINAL REPORT TECHNIQUE: Multiplanar MR of the foot without gadolinium enhancement. CLINICAL HISTORY: evaluate 1st MTPJ arthritis. patient states bunion. pain in forefoot. COMPARISON: None FINDINGS: Marrow signal: There is an osteochondral defect of the tibial plafond and along the medial aspect of the distal tibia, measuring 4 mm. There is minimal bone marrow edema of the middle cuneiform and second proximal metatarsal, consider arthritic in nature. Joints: Moderate degenerative change of the first MTP joint is present. There is cystic change in the first metatarsal head secondary to osteoarthritic disease. A severe hallux valgus deformity is present. Tendons:Visualized tendons are unremarkable Ligaments:Major ligaments intact Plantar Fascia:No evidence of tear No cystic or soft tissue mass. IMPRESSION: Osteochondral defect of the tibial plafond and along the medial aspect of the distal tibia measuring 4 mm in size. Degenerative change of the first MTP joint with severe hallux valgus deformity. Reviewed, Interpreted and Dictated by Ronaldo Gaxiola MD Transcribed by Samira Hewitt Authenticated and [facility]
--- NOTE | 2024-03-20 13:05 | US_ITS ---
FINAL REPORT CLINICAL HISTORY: DECREASED SENESATION,HTN,EXSMOKER,CLAUDICATION,REST PAIN FINDINGS: LOWER EXTREMITY SEGMENTAL PRESSURE MEASUREMENTS FINDINGS: Pressure indices are as follows: RIGHT LOWER EXTREMITY: Thigh: 1.21 Calf: 1.14 Ankle, posterior tibial artery: 1.10 Ankle, dorsalis pedis: 1.07 Toe: 0.56 STUART: 1.10 Comments: Within normal limits LEFT LOWER EXTREMITY: Thigh: 1.09 Calf: 1.16 cm Ankle, posterior tibial artery: 1.04 Ankle, dorsalis pedis: 1.04 Toe: 0.63 STUART: 1.04 Comments: Within normal limits IMPRESSION: No evidence of peripheral vascular disease in the bilateral lower extremities. Reviewed, Interpreted and Dictated by Ronaldo Gaxiola MD Transcribed by Meryl Chung Authenticated and [facility]
== END 2024-03-20 23:59 | disposition home or self-care (01) ==
LOC: RAD 12:39
PROVIDERS: PCP Nurse Practitioner Family; Visit Provider Podiatrist
DX: M79.671 Pain in right foot (principal); M20.11 Hallux valgus (acquired), right foot; R09.89 Other specified symptoms and signs involving the circulatory and respiratory systems
CPT/HCPCS: 73718; 93923

== ENCOUNTER 2024-03-23 11:16 | Outpatient (CLI) | payer MEDICARE, OTHER, SELFPAY ==
[2024-03-23 12:54] LABS: PHA INR Fingerstick 2.4 (0.9-1.1)
== END 2024-03-23 12:56 ==
LOC: ACC 11:17
PROVIDERS: PCP Nurse Practitioner Family; Visit Provider Internal Medicine Adolescent Medicine
DX: Z79.01 Long term (current) use of anticoagulants (principal); Z86.711 Personal history of pulmonary embolism
CPT/HCPCS: 85610; 99211; G0463

== ENCOUNTER 2024-03-29 13:33 | Emergency (ER) | payer MEDICARE, OTHER, SELFPAY ==
[2024-03-29 13:36] VITALS: BP 133/93; PULSE 62; RESP 18; TEMP 36.6; O2SAT 98; BMI 33.6
--- NOTE | 2024-03-29 13:51 | ED_ITS ---
<Statement entered by Mary Anaya DO - 03/29/24 23:36> I was consulted by the ROSLYN, and we discussed the complexity of the problems being addressed. I approved the treatment and management plan for this patient's care in the emergency department, thus performing a substantive portion of the medical decision making. Mary Anaya DO <Statement entered by Marta Lott MD - 03/29/24 16:32> I was consulted by the ROSLYN, and we discussed the complexity of problems being addressed. I approved the treatment and management plan for this patient's care in the emergency department, thus performing a substantive portion of the medical decision making. Marta Lott MD Discharge Plan Disposition Patient Disposition: Home, Self-Care Condition: Good Prescriptions Prescriptions: No Action ropinirole 1 mg tablet 1 mg PO HS amitriptyline 50 mg tablet 50 mg PO HS magnesium 250 mg tablet 250 mg PO DAILY amlodipine 5 mg tablet See Rx Instructions .ROUTE .COMPLEX Qty: 90 3RF Dose Instruction: TAKE 1/2 TABLET BY MOUTH ONCE DAILY FOR BLOOD PRESSURE Rx Instructions: TAKE 1/2 TABLET BY MOUTH ONCE DAILY FOR BLOOD PRESSURE omeprazole 20 mg capsule,delayed release(DR/EC) 20 mg PO DAILY Qty: 90 1RF tramadol 50 MG tablet 50 mg PO BID montelukast 10 MG tablet 10 mg PO PM fluticasone propionate 9.9 ML spray,suspension 9.9 ml intranasal DAILY cholecalciferol (vitamin D3) 1,000 UNIT capsule 4,000 unit PO DAILY duloxetine 60 MG capsule,delayed release(DR/EC) 60 mg PO BID ondansetron 4 MG tablet,disintegrating 4 mg PO Q8HP PRN (Reason: Nausea) Qty: 20 0RF albuterol sulfate 8.5 GM HFA aerosol inhaler 2 puffs inhalation Q4HP PRN (Reason: Shortness Of Breath Or Wheezing) fluticasone propion-salmeterol 28 PUFF blister with device 1 puff inhalation BID gabapentin 300 MG capsule 300 mg PO TID metaxalone 800 MG tablet 800 mg PO NEEDED PRN (Reason: pain) hydroxyzine HCl 50 mg tablet 50 mg PO Q8H PRN (Reason: itching) Qty: 20 0RF warfarin 5 mg tablet 7.5 mg PO DAILY Rx Instructions: 5mg on tuesday and tuesday, alternating with 7.5mg all other days aspirin 81 MG tablet,delayed release (DR/EC) 81 mg PO HS levocetirizine 5 MG tablet 5 mg PO HS oxybutynin chloride 5 MG tablet 5 mg PO TID atorvastatin 20 mg tablet 40 mg PO DAILY levofloxacin 500 mg tablet 500 mg PO DAILY 5 Days Qty: 5 0RF phenazopyridine [Pyridium] 200 mg tablet 200 mg PO Q8H 2 Days Qty: 6 0RF Referrals Follow up/Referrals: Sandra Lenz APRN [Primary Care Provider] - See instructions Activity Restrictions/Add. Instructions Additional Instructions/Restrictions: Follow-up with your PCP for any continuing worsening signs or symptoms. I recommend taking Tylenol alternating with Motrin for this flare. Clinical Impressions Clinical Impression: Acute chest wall pain Instructions Patient Instructions: DI for Acute Abdominal Pain Print Language Print Language: Irish Discharge ED Provider: Marta Lott General Adult HPI <VICENTE Obrien - Last Filed: 03/29/24 16:04> General Chief complaint: Abdominal Pain Stated complaint: pain under left breast Time Seen by Provider: 03/29/24 13:51 Mode of Arrival: Ambulatory Source of Information: Patient Limitations: No Limitations Description of Symptoms (Recalled from ER Triage Doc. by RN): Pt presents today with c/o LUQ abdominal pain that started this AM. Pt rates pain as a 9/10. hx of hiatal hernia. History of Present Illness HPI narrative: Patient presents for evaluation of left-sided thoracicoabdominal pain. Patient states that she bent over this morning to put on close and felt a sharp pain into her left lateral chest wall/upper abdomen. She denies any shortness of breath fever chills mops this Colbert's melena nausea vomiting diarrhea. She reports she she is tolerant of oral intake and having bowel movements and passing flatus. She denies any trauma fall or injury. Related Data Home Medications ?Medication ?Instructions ?Recorded ?Confirmed cholecalciferol (vitamin D3) 25 4,000 unit PO DAILY Supplement 05/24/17 03/13/24 mcg (1,000 unit) capsule duloxetine 60 mg capsule,delayed 60 mg PO BID Depression 05/24/17 03/13/24 release fluticasone propionate 50 9.9 ml intranasal DAILY allergies 05/24/17 03/13/24 mcg/actuation nasal spray,suspension montelukast 10 mg tablet 10 mg PO PM Asthma 05/24/17 03/13/24 tramadol 50 mg tablet 50 mg PO BID Pain 05/24/17 03/13/24 aspirin 81 mg tablet,delayed 81 mg PO HS Blood thinner 12/19/18 03/13/24 release levocetirizine 5 mg tablet 5 mg PO HS Allergy symptoms 12/19/18 03/13/24 oxybutynin chloride 5 mg tablet 5 mg PO TID overactive bladder 12/19/18 03/13/24 atorvastatin 20 mg tablet 40 mg PO DAILY Cholesterol 04/03/19 03/13/24 albuterol sulfate 90 mcg/actuation 2 puffs inhalation Q4HP PRN 04/10/19 03/13/24 aerosol inhaler Shortness Of Breath Or Wheezing fluticasone 500 mcg-salmeterol 50 1 puff inhalation BID COPD 03/25/20 03/13/24 mcg/dose blistr powdr for inhalation magnesium 250 mg tablet 250 mg PO DAILY Supplement 04/30/20 03/13/24 gabapentin 300 mg capsule 300 mg PO TID nerve pain 04/28/21 03/13/24 metaxalone 800 mg tablet 800 mg PO NEEDED PRN pain 04/28/21 03/13/24 warfarin 5 mg tablet 7.5 mg PO DAILY BLOOD CLOTS 04/29/21 03/13/24 amitriptyline 50 mg tablet 50 mg PO HS MOOD 04/29/22 03/13/24 ropinirole 1 mg tablet 1 mg PO HS Pain 04/29/22 03/13/24 Previous Rx's ?Medication ?Instructions ?Recorded ondansetron 4 mg disintegrating 4 mg PO Q8HP PRN Nausea ##20 02/07/19 tablet hydroxyzine HCl 50 mg tablet 50 mg PO Q8H PRN itching #20 tabs 09/04/22 levofloxacin 500 mg tablet 500 mg PO DAILY 5 days #5 tabs 02/17/23 phenazopyridine 200 mg tablet 200 mg PO Q8H pain 2 days #6 tabs 02/17/23 (Pyridium) amlodipine 5 mg tablet See Rx Instructions .Route 10/17/23 .COMPLEX #90 tabs omeprazole 20 mg capsule,delayed 20 mg PO DAILY GERD #90 caps 01/24/24 release Allergies Allergy/AdvReac Type Severity Reaction Status Date / Time Sulfa (Sulfonamide Allergy Severe Hives Verified 03/06/24 13:32 Antibiotics) adhesive Allergy Unknown S-BLISTERING Verified 03/06/24 13:32 WELTS amoxicillin (From Augmentin) Allergy Unknown Rash Verified 03/06/24 13:32 cefdinir Allergy Unknown I-RASH Verified 03/06/24 13:32 clarithromycin Allergy Unknown I-RASH Verified 03/06/24 13:32 clavulanic acid Allergy Unknown Rash Verified 03/06/24 13:32 codeine Allergy Unknown NA-NAUSEA/V Verified 03/06/24 13:32 OMITING latex Allergy Unknown S-BLISTERING Verified 03/06/24 13:32 WELTS nitrofurantoin (From Allergy Unknown Unknown Verified 03/06/24 13:32 Macrobid) allergy reaction sulfamethoxazole (From Allergy Unknown I-RASH,DIAR Verified 03/06/24 13:32 Bactrim) HEA trimethoprim (From Bactrim) Allergy Unknown I-RASH,DIAR Verified 03/06/24 13:32 MARY JO [facility] <VICENTE Obrien - Last Filed: 03/29/24 16:04> [facility] Disclaimer: The information contained in this section may have been updated after the patient was seen, as this information can be updated by other users. 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 Granulomatous lung disease Diastolic dysfunction HLD (hyperlipidemia) Fatigue UTI (urinary tract infection) HTN (hypertension) COPD (chronic obstructive pulmonary disease) Pulmonary embolism DVT (deep venous thrombosis) Eustachian tube dysfunction Allergies History of sinus problem Fibromyalgia Arthritis Migraines Anxiety and depression UTI (urinary tract infection) Kidney stones Hiatal hernia GERD (gastroesophageal reflux disease) Gallbladder disease Pulmonary embolism COPD (chronic obstructive pulmonary disease) Lung disease Asthma Clotting disorder Hypertension DVT (deep venous thrombosis) Fatigue HLD (hyperlipidemia) Abnormal EKG SOB (shortness of breath) Chest pain Surgical History Previous back surgery x2 H/O sinus surgery H/O total hysterectomy History of esophagogastroduodenoscopy (EGD) History of colonoscopy Hx of cholecystectomy Hx of appendectomy History of tonsillectomy History of bilateral carpal tunnel release H/O left breast biopsy H/O cardiac catheterization Family History Other Family history of alcoholism Family history of asthma Family history of bleeding disorder Family history of cancer Family history of diabetes mellitus (DM) Family history of hyperlipidemia Family history of hypertension Family history of myocardial infarction Family history of stroke Family history of substance abuse Social History Smoking Status: Never smoker second hand exposure: No alcohol intake: current alcohol intake frequency: holidays/special occasions only substance use type: denies use current occupational status: other Travel in the last 8 weeks: None household members: spouse housing: house current occupational exposures/hazards: Yes caffeine: Yes Have you lived/traveled outside [place] in past 30 days?: No Contact w/someone who lives/traveled outside [place] past 30 days?: No Exposure to someone with infectious disease in past 14 days?: No Do you have a fever (greater than 100.4 F or 38 C)?: No Have you tested positive for COVID-19: No Exposed to someone with COVID-19 in past 14 days?: No Do you have a sore throat?: No Do you have a cough?: No Do you have any weakness?: No Do you have any diarrhea?: No Are you experiencing any unusual bleeding?: No Do you have any muscle aches/pain?: No Do you have any abdominal pain?: No Are you experiencing loss of taste or smell?: No Other Medical History Have you received the Flu Vaccine for this season: No Have you received the Pneumonia Vaccine: No <VICENTE Obrien - Last Filed: 03/29/24 16:04> ROS Obtained: Yes Systems reviewed as appropriate & no additional complaints except as documented Physical Exam <VICENTE Obrien - Last Filed: 03/29/24 16:04> General General appearance: alert Respiratory Respiratory exam: Present normal lung sounds bilaterally Cardiovascular Cardiovascular exam: Present regular rate Neurological Exam Neurological exam: Present alert and oriented X3 Medical Decision Making <VICENTE Obrien - Last Filed: 03/29/24 16:04> Medical Records Medical records reviewed: Yes I reviewed the patient's medical records. Screening: Per USPSTF and CDC recommendations, given the prevalence of disease in our region, it is our hospital?s policy to screen for HIV and viral Hepatitis for all patients aged 18 and over and those with ongoing risk factors. Oneal Inquiry Pt receiving controlled substance: No Vital Signs: 03/29/24 13:36 Temperature 97.8 F Temperature Source Oral Pulse Rate [Left] 62 Respiratory Rate 18 Blood Pressure [Right Arm] 133/93 H Blood Pressure Mean [Right Arm] 106 Blood Pressure Position [Right Arm] Sitting 02 Sat by Pulse Oximetry 98 Oxygen Delivery Method Room Air Lab Data Lab results reviewed: Yes I reviewed the patient's lab results. Lab Results 03/29/24 14:30: WBC 8.1, RBC 3.85 L, Hgb 12.1 L, Hct 37.1, MCV 96.4, MCH 31.4 H, MCHC 32.6, RDW 14.2, Plt Count 226, MPV 10.0, Neut % (Auto) 60.0, Lymph % (Auto) 28.4, [place] % (Auto) 6.3, Eos % (Auto) 4.1, Baso % (Auto) 1.0, Neut # (Auto) 4.9, Lymph # (Auto) 2.3, [place] # (Auto) 0.5, Eos # (Auto) 0.3, Baso # (Auto) 0.1, Sodium 141, Potassium 4.3, Chloride 108 H, Carbon Dioxide 24, Anion Gap 13.3, BUN 9, Creatinine 0.70, Estimated Creat Clear 79, Estimated GFR 83, Est GFR ( Amer) 101, Glucose 120 H, Calcium 8.6, Total Bilirubin 0.8, AST 43 H, ALT 23, Alkaline Phosphatase 59, Total Protein 7.8, Albumin 4.4, Globulin 3.4 H, Albumin/Globulin Ratio 1.3, Lipase 45, Procalcitonin 0.050 03/29/24 14:30 03/29/24 14:30 Orders (Tests/Meds): ED MEDICATIONS Discontinued Medications Generic Name Dose Route Start Last Admin Trade Name Freq PRN Reason Stop Dose Admin Acetaminophen 1,000 mg 03/29/24 14:08 03/29/24 14:50 Acetaminophen 500mg Tab PO 03/29/24 14:09 Not Given ONCE ONE Ketorolac Tromethamine 30 mg 03/29/24 14:08 03/29/24 14:42 Ketorolac 30mg/Ml Vial IM 03/29/24 14:09 30 mg ONCE ONE Administration Methocarbamol 500 mg 03/29/24 14:08 03/29/24 14:42 Methocarbamol 500mg Tablet PO 03/29/24 14:09 500 mg ONCE ONE Administration ORDERS Category Date Time Status CT abdomen pelvis wo con Stat Cat Scan 03/29/24 14:[address] chest wo con Stat Cat Scan 03/29/24 14:09 Completed CBC w/Auto Diff [Complete Blood Count Auto Diff] Stat Lab 03/29/24 14:30 Completed CMP [Comprehensive Metabolic Panel] Stat Lab 03/29/24 14:30 Completed Lipase Stat Lab 03/29/24 14:30 Completed Procalcitonin Stat Lab 03/29/24 14:30 Completed Trop I [Troponin I] Stat Lab 03/29/24 14:30 Received Troponin I Q3H Lab 03/29/24 18:30 Ordered Troponin I Q3H Lab 03/29/24 21:30 Ordered Medical Decision Narrative: In summary patient is a 68-year-old female who presents to the emergency department for evaluation of anterior lateral left chest wall pain. Patient is hemodynamically stable upon arrival, afebrile. Physical exam is remarkable for tenderness to palpation in the left anterior lateral lower chest wall without any evidence of trauma ecchymosis abrasions contusions. Breath sounds clear and equal bilaterally to the bases the adventitious sounds. Patient has left upper quadrant tenderness underneath the rib cage but no rebound no guarding no rigidity bowel sounds normal active. Differential diagnosis includes chest wall pain versus pneumonia versus appendicitis versus elevated troponin etc. Initial workup will be conducted with hematologic labs twelve-lead EKG CT scan chest abdomen pelvis without contrast. Initial interventions include Tylenol Toradol Robaxin. Initial workup reviewed by me shows that her hematologic labs are nonactionable and my informal interpretation of her imaging shows chronic left anterior lateral rib fractures but no other acute processes. Upon repeat evaluation patient reported moderate improvement after initial intervention. Given this patient is appropriate discharge with follow-up with her PCP for any continued new or worsening signs or symptoms recommendation to continue taking Tylenol alternating Motrin for symptomatic pain. Of note patient has no recollection of how she could have possibly broken her ribs. <Mary N Héctor, DO - Last Filed: 03/29/24 15:38> Vital Signs: 03/29/24 13:36 Temperature 97.8 F Temperature Source Oral Pulse Rate [Left] 62 Respiratory Rate 18 Blood Pressure [Right Arm] 133/93 H Blood Pressure Mean [Right Arm] 106 Blood Pressure Position [Right Arm] Sitting 02 Sat by Pulse Oximetry 98 Oxygen Delivery Method Room Air Lab Data Lab Results 03/29/24 14:30: WBC 8.1, RBC 3.85 L, Hgb 12.1 L, Hct 37.1, MCV 96.4, MCH 31.4 H, MCHC 32.6, RDW 14.2, Plt Count 226, MPV 10.0, Neut % (Auto) 60.0, Lymph % (Auto) 28.4, [place] % (Auto) 6.3, Eos % (Auto) 4.1, Baso % (Auto) 1.0, Neut # (Auto) 4.9, Lymph # (Auto) 2.3, [place] # (Auto) 0.5, Eos # (Auto) 0.3, Baso # (Auto) 0.1, Sodium 141, Potassium 4.3, Chloride 108 H, Carbon Dioxide 24, Anion Gap 13.3, BUN 9, Creatinine 0.70, Estimated Creat Clear 79, Estimated GFR 83, Est GFR ( Amer) 101, Glucose 120 H, Calcium 8.6, Total Bilirubin 0.8, AST 43 H, ALT 23, Alkaline Phosphatase 59, Total Protein 7.8, Albumin 4.4, Globulin 3.4 H, Albumin/Globulin Ratio 1.3, Lipase 45, Procalcitonin 0.050 Orders (Tests/Meds): ED MEDICATIONS Discontinued Medications Generic Name Dose Route Start Last Admin Trade Name Freq PRN Reason Stop Dose Admin Acetaminophen 1,000 mg 03/29/24 14:08 03/29/24 14:50 Acetaminophen 500mg Tab PO 03/29/24 14:09 Not Given ONCE ONE Ketorolac Tromethamine 30 mg 03/29/24 14:03/29/24 14:42 Ketorolac 30mg/Ml Vial IM 03/29/24 14:09 30 mg ONCE ONE Administration Methocarbamol 500 mg 03/29/24 14:08 03/29/24 14:42 Methocarbamol 500mg Tablet PO 03/29/24 14:09 500 mg ONCE ONE Administration ORDERS Category Date Time Status CT abdomen pelvis wo con Stat Cat Scan 03/29/24 14:[address] chest wo con Stat Cat Scan 03/29/24 14:09 Completed CBC w/Auto Diff [Complete Blood Count Auto Diff] Stat Lab 03/29/24 14:30 Completed CMP [Comprehensive Metabolic Panel] Stat Lab 03/29/24 14:30 Completed Lipase Stat Lab 03/29/24 14:30 Completed Procalcitonin Stat Lab 03/29/24 14:30 Completed Trop I [Troponin I] Stat Lab 03/29/24 14:30 Received Troponin I Q3H Lab 03/29/24 18:30 Ordered Troponin I Q3H Lab 03/29/24 21:30 Ordered ECG Data Tracing #1: I reviewed this ECG and interpreted as documented below: Sinus bradycardia with a ventricular to [address] changes concerning for ischemia. Normal axis. Right ventricular conduction delay. ECG initial impression date: 03/29/24 ECG initial impression time: 15:35 Critical Care <VICENTE Obrien - Last Filed: 03/29/24 16:04> Critical Care Time Critical Care Time: No
--- NOTE | 2024-03-29 14:09 | CT_ITS ---
FINAL REPORT TECHNIQUE: Thin section axial images were obtained from the lung bases to the pubic symphysis without IV contrast. Coronal reconstruction images were obtained from the axial data. Exam was performed using dose reduction technique. CLINICAL HISTORY: Left upper quadrant abdominal pain COMPARISON: None FINDINGS: There are no renal or ureteral stones. There is no hydronephrosis or perinephric stranding. The gallbladder is absent. The remaining unenhanced solid abdominal organs are unremarkable. There is no evidence of small bowel obstruction. The appendix is not seen but there are no secondary signs of appendicitis. GI tract is without acute abnormality. The uterus is absent. There is no abdominal or pelvic lymphadenopathy. There is no ascites. There are postoperative changes from prior posterior lower lumbar fusion. No acute osseous abnormality is identified. IMPRESSION: No acute abnormality in the abdomen or pelvis on this unenhanced exam. Reviewed, Interpreted and Dictated by Sierra Pelletier MD Transcribed by Meryl Chung Authenticated and . [facility]
--- NOTE | 2024-03-29 14:09 | CT_ITS ---
FINAL REPORT TECHNIQUE: Thin section axial images were obtained from the lung apices through the upper abdomen without contrast. This study was performed with techniques to keep radiation doses as low as reasonably achievable (ALARA). Individualized dose reduction techniques using automated exposure control or adjustment of mA and/or kV according to the patient's size were employed. CLINICAL HISTORY: Left lateral chest wall pain COMPARISON: 09/19/2023 FINDINGS: There is no mediastinal, hilar, or axillary lymphadenopathy. No pleural or pericardial effusion. There is a mixed density 5 mm right upper lobe pulmonary nodule on series 3, image 28 which is unchanged. Linear opacities in both lower lungs are stable. Subpleural nodules in the right lung base on images 54 and 56 are unchanged. No new pulmonary nodule identified. There are no areas of consolidation.. There are several chronic left lateral rib deformities. No acute rib fracture identified. Remaining osseous structures are without acute abnormality.. IMPRESSION: Stable pulmonary nodules and chronic lung findings. No acute rib fracture. Chronic left lateral rib fractures. Reviewed, Interpreted and Dictated by Sierra Pelletier MD Transcribed by Meryl Chung Authenticated and [facility]
[2024-03-29 14:42] LABS: Basophils # 0.1 K/mm3 (0-0.2); Eosinophils # 0.3 K/mm3 (0.0-0.4); Eosinophils % 4.1 % (0.1-12.0); Hematocrit 37.1 % (37.0-47.0); Hemoglobin 12.1 g/dL (12.2-16.2); Lymphocytes # 2.3 K/mm3 (0.7-4.5); Lymphocytes % 28.4 % (10-50); Mean Corpuscular HGB Conc 32.6 g/dL (31.8-35.4); Mean Corpuscular Hemoglobin 31.4 pg (27.0-31.2); Mean Corpuscular Volume 96.4 fl (81-99); Monocytes # 0.5 K/mm3 (0.1-1.0); Monocytes % 6.3 % (1.7-9.3); Neutrophils # 4.9 K/mm3 (1.8-7.8); Platelet Count 226 K/mm3 (142-424); Red Blood Count 3.85 M/mm3 (4.20-5.40); Red Cell Distribution Width 14.2 % (11.5-17.5); White Blood Count 8.1 K/mm3 (4.8-10.8)
[2024-03-29] MEDS: METHOCARBAMOL 500MG TABLET 500 MG PO (14:42)
[2024-03-29] MEDS: KETOROLAC 30MG/ML VIAL 30 MG IM (14:42)
[2024-03-29 14:48] LABS: Albumin Level 4.4 g/dl (3.5-5.0); Chloride 108 mmol/L (98-107); Sodium 141 mmol/L (136-145)
[2024-03-29 14:49] LABS: Potassium 4.3 mmoL/L (3.5-5.1)
[2024-03-29 14:51] LABS: Alanine Aminotransferase 23 U/L (12-78); Alkaline Phosphatase 59 U/L (38-126); Anion Gap 13.3 mEq/L (5-15); Aspartate Amino Transferase 43 U/L (14-36); Bilirubin,Total 0.8 mg/dl (0.2-1.3); Blood Urea Nitrogen 9 mg/dl (7-17); Carbon Dioxide 24 mmol/L (22.0-30.0); Creatinine Clearance Estimated 79 mL/min (50-200); Estimated Glomerular Filt Rate 83 ml/min (>60); GFR (African American) 101 ML/MIN (>60)
[2024-03-29 14:52] LABS: Albumin/Globulin Ratio 1.3 (1.1-1.8); Calcium 8.6 mg/dl (8.4-10.2); Globulin 3.4 g/dL (1.3-3.2); Glucose 120 mg/dl (74-100); Lipase 45 U/L (23-300); Total Protein,Serum 7.8 g/dl (6.3-8.2)
--- NOTE | 2024-03-29 15:35 | ECG_ITS ---
APPROVED REPORT Exam: Resting ECG HR:54 bpm ECG Measurements Heart Rate 54 AXES AK 168 P 51 QRSd 107 QRS 5 QT 418 T 17 QTc 405 Conclusion SINUS BRADYCARDIA POSSIBLE RIGHT VENTRICULAR CONDUCTION DELAY [RSR (QR) IN V1/V2] BORDERLINE ECG UNCONFIRMED REPORT Electronically signed by : Marta Lott, 03/29/2024 16:35:54
--- NOTE | 2024-03-29 15:41 | PC.NURSE ---
Nadir in lab aware to add troponin order.
[2024-03-29 16:03] VITALS: BP 136/77; PULSE 58; RESP 18; TEMP 36.6; O2SAT 100
[2024-03-29 16:05] LABS: Troponin I < 0.01 ng/ml (0.00-0.034)
== END 2024-03-29 16:04 | disposition home or self-care (01) ==
PROVIDERS: Emergency Medicine; Physician Assistant; Emergency Provider Student in an Organized Health Care Education/Training Program; PCP Nurse Practitioner Family
DX: R07.89 Other chest pain (principal); R10.12 Left upper quadrant pain
CPT/HCPCS: 71250; 74176; 80053; 83690; 84145; 84484; 85025; 93005; 96372; 99284; J1885

== ENCOUNTER 2024-04-05 11:39 | Outpatient (POV) | payer MEDICARE, OTHER, SELFPAY ==
--- NOTE | 2024-04-05 12:03 | EXP.PAIN.SOA ---
[facility] Disclaimer: The information contained in this section may have been updated after the patient was seen, as this information can be updated by other users. 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 Granulomatous lung disease Diastolic dysfunction HLD (hyperlipidemia) Fatigue UTI (urinary tract infection) HTN (hypertension) COPD (chronic obstructive pulmonary disease) Pulmonary embolism DVT (deep venous thrombosis) Eustachian tube dysfunction Allergies History of sinus problem Fibromyalgia Arthritis Migraines Anxiety and depression UTI (urinary tract infection) Kidney stones Hiatal hernia GERD (gastroesophageal reflux disease) Gallbladder disease Pulmonary embolism COPD (chronic obstructive pulmonary disease) Lung disease Asthma Clotting disorder Hypertension DVT (deep venous thrombosis) Fatigue HLD (hyperlipidemia) Abnormal EKG SOB (shortness of breath) Chest pain Surgical History Previous back surgery x2 H/O sinus surgery H/O total hysterectomy History of esophagogastroduodenoscopy (EGD) History of colonoscopy Hx of cholecystectomy Hx of appendectomy History of tonsillectomy History of bilateral carpal tunnel release H/O left breast biopsy H/O cardiac catheterization Family History Other Family history of alcoholism Family history of asthma Family history of bleeding disorder Family history of cancer Family history of diabetes mellitus (DM) Family history of hyperlipidemia Family history of hypertension Family history of myocardial infarction Family history of stroke Family history of substance abuse Social History Smoking Status: Never smoker second hand exposure: No alcohol intake: current alcohol intake frequency: holidays/special occasions only substance use type: denies use current occupational status: other Travel in the last 8 weeks: None household members: spouse housing: house current occupational exposures/hazards: Yes caffeine: Yes PM Subjective & Objective Subjective Subjective:: Patient is a pleasant 68-year-old female who presents today for follow-up of left intra-articular shoulder injection on 03/13/2024. Today she rates her pain in that joint a 4 out of 10. She states that she has had at least 60% improvement following that injection. She does however state that her pain is at least a 6 out of 10 in her bilateral knees with the left knee being worse. Patient denies any new falls or injuries. She does state that she has had more swelling in the left knee and did go and see her primary care due to the worsening pain and was given oral prednisone. She states this is helping however the chronic aching, throbbing sensation with limited range of motion is affecting her ability perform activities of daily living such as cooking and cleaning. Patient is currently prescribed gabapentin from her primary care and compounded cream from our office. She denies any side effects. Her Oneal has been reviewed. Review of Systems: General: No recent weight changes, no fever, no sleep disturbances Respiratory: No cough, no shortness of air, no recurring pulmonary infections Cardiovascular/peripheral vascular: No chest pain, no palpitations, no edema, no shortness of breath Gastrointestinal: No new onset incontinence, normal bowel movements reported Genitourinary: No new onset incontinence Musculoskeletal: Bilateral knee pain Psychiatric: [Normal mood/affect] Neurological: [Denies weakness in extremities], [denies balance issues] Pain at rest (0-10 scale): 6 Objective Objective:: Physical Exam: General: Alert and oriented x3, no acute distress, pleasant and cooperative Lungs: Respirations even and unlabored, symmetrical chest expansion Eyes: PERRL Musculoskeletal: Flexion and extension of bilateral knees somewhat guarded secondary to pain, [antalgic gait noted] Neurological: Speech clear, no gross sensory deficit Has patient had previous pain injection?: Yes Percent improvement in pain since last injection: 60% Conservative treatment options previously tried: Home exercise plan Length of treatment: Longer than 12 weeks Meds Home Medications and Allergies Home Medications ?Medication ?Instructions ?Recorded ?Confirmed ?Type cholecalciferol (vitamin D3) 25 4,000 unit PO DAILY Supplement 05/24/17 04/02/24 History mcg (1,000 unit) capsule duloxetine 60 mg capsule,delayed 60 mg PO BID Depression 05/24/17 04/02/24 History release fluticasone propionate 50 9.9 ml intranasal DAILY allergies 05/24/17 04/02/24 History mcg/actuation nasal spray,suspension montelukast 10 mg tablet 10 mg PO PM Asthma 05/24/17 04/02/24 History tramadol 50 mg tablet 50 mg PO BID Pain 05/24/17 04/02/24 History aspirin 81 mg tablet,delayed 81 mg PO HS Blood thinner 12/19/18 04/02/24 History release levocetirizine 5 mg tablet 5 mg PO HS Allergy symptoms 12/19/18 04/02/24 History oxybutynin chloride 5 mg tablet 5 mg PO TID overactive bladder 12/19/18 04/02/24 History ondansetron 4 mg disintegrating 4 mg PO Q8HP PRN Nausea ##20 02/07/19 04/02/24 Rx tablet atorvastatin 20 mg tablet 40 mg PO DAILY Cholesterol 04/03/19 04/02/24 History albuterol sulfate 90 mcg/actuation 2 puffs inhalation Q4HP PRN 04/10/19 04/02/24 History aerosol inhaler Shortness Of Breath Or Wheezing fluticasone 500 mcg-salmeterol 50 1 puff inhalation BID COPD 03/25/20 04/02/24 History mcg/dose blistr powdr for inhalation magnesium 250 mg tablet 250 mg PO DAILY Supplement 04/30/20 04/02/24 History gabapentin 300 mg capsule 300 mg PO TID nerve pain 04/28/21 04/02/24 History metaxalone 800 mg tablet 800 mg PO NEEDED PRN pain 04/28/21 04/02/24 History warfarin 5 mg tablet 7.5 mg PO DAILY BLOOD CLOTS 04/29/21 04/02/24 History amitriptyline 50 mg tablet 50 mg PO HS MOOD 04/29/22 04/02/24 History ropinirole 1 mg tablet 1 mg PO HS Pain 04/29/22 04/02/24 History hydroxyzine HCl 50 mg tablet 50 mg PO Q8H PRN itching #20 tabs 09/04/22 04/02/24 Rx levofloxacin 500 mg tablet 500 mg PO DAILY 5 days #5 tabs 02/17/23 04/02/24 Rx phenazopyridine 200 mg tablet 200 mg PO Q8H pain 2 days #6 tabs 02/17/23 04/02/24 Rx (Pyridium) amlodipine 5 mg tablet See Rx Instructions .Route 10/17/23 04/02/24 Rx .COMPLEX #90 tabs omeprazole 20 mg capsule,delayed 20 mg PO DAILY GERD #90 caps 01/24/24 04/02/24 Rx release New Prescriptions to Start Prescriptions: Allergies Allergy/AdvReac Type Severity Reaction Status Date / Time Sulfa (Sulfonamide Allergy Severe Hives Verified 04/02/24 11:01 Antibiotics) adhesive Allergy Unknown S-BLISTERING Verified 04/02/24 11:01 WELTS amoxicillin (From Augmentin) Allergy Unknown Rash Verified 04/02/24 11:01 cefdinir Allergy Unknown I-RASH Verified 04/02/24 11:01 clarithromycin Allergy Unknown I-RASH Verified 04/02/24 11:01 clavulanic acid Allergy Unknown Rash Verified 04/02/24 11:01 codeine Allergy Unknown NA-NAUSEA/V Verified 04/02/24 11:01 OMITING latex Allergy Unknown S-BLISTERING Verified 04/02/24 11:01 WELTS nitrofurantoin (From Allergy Unknown Unknown Verified 04/02/24 11:01 Macrobid) allergy reaction sulfamethoxazole (From Allergy Unknown I-RASH,DIAR Verified 04/02/24 11:01 Bactrim) HEA trimethoprim (From Bactrim) Allergy Unknown I-RASH,DIAR Verified 04/02/24 11:01 MARY JO Assessment and Plan *Assessment and plan (1) Left knee pain: Status: Acute Qualifiers: Chronicity: acute Qualified Code(s): M25.562 - Pain in left knee Category: Medical Code(s): M25.562 - Pain in left knee (2) Bilateral knee pain: Status: Acute Qualifiers: Chronicity: chronic Qualified Code(s): M25.561 - Pain in right knee; M25.562 - Pain in left knee; G89.29 - Other chronic pain Category: Medical Code(s): M25.561 - Pain in right knee; M25.562 - Pain in left knee Plan Patient has had significant improvement following her shoulder injection and does not require any additional injection therapy at this joint. Patient is however experiencing significant and severe pain in her bilateral knees with limited range of motion. Risk and benefits of repeat bilateral intra-articular knee injections were explained to the patient and she would like to proceed forward with this plan of care. Patient has tried and failed conservative therapy including continued at home stretching exercise for longer than 12 weeks with no additional changes. Patient has had bilateral knee injections in the past that did [id number]% relief with her last 1 was done in November and has lasted up until about the last couple of weeks. Patient did have improved function and decreased pain with this intervention. We will schedule her for bilateral intra-articular knee injections. These will be done without fluoroscopic guidance or ultrasound. Patient does state that she is going for evaluation with Dr. Dyson here at [facility] for possible knee replacement. I did automobile club travel counselor her when and if she proceeds forward with that option we will have to make sure that she does not have any steroid injections for 3 months. Patient acknowledges understanding agrees with plan of care. Patient has been instructed to contact the clinic with any concerns before the next appointment. Dr. Walls has reviewed this note and agrees with this plan of care. This note was dictated using voice recognition software and make contain errors or omissions. All injections are used with Lidocaine, Bupivacaine and Depo Medrol. Occasionally urine drug screen is needed to verify patient's compliance with our office pain contract. This is ordered based off specific treatments related to chronic pain with the potential to abuse certain medications.
--- NOTE | 2024-04-05 12:14 | XR_ITS ---
FINAL REPORT CLINICAL HISTORY: PAIN COMPARISON: 03/25/2021 FINDINGS: Three views of the left knee were obtained. There is no acute fracture or dislocation. There is moderate tricompartment degenerative change, greatest in the medial compartment. Findings are similar to previous. Small joint effusion is identified. The bones are osteopenic. Note is made of chondrocalcinosis. IMPRESSION: Moderate degenerative changes with interval small joint effusion. Reviewed, Interpreted and Dictated by Ronaldo Gaxiola MD Transcribed by Philly Parks Authenticated and [facility]
[2024-04-05 12:47] LABS: Basophils # 0.1 K/mm3 (0-0.2); Basophils % 0.5 % (0.1-2.0); Eosinophils % 0.3 % (0.1-12.0); Hemoglobin 11.5 g/dL (12.2-16.2); Lymphocytes # 2.6 K/mm3 (0.7-4.5); Lymphocytes % 19.7 % (10-50); Mean Corpuscular HGB Conc 32.9 g/dL (31.8-35.4); Mean Corpuscular Hemoglobin 31.1 pg (27.0-31.2); Mean Corpuscular Volume 94.6 fl (81-99); Mean Platelet Volume 9.8 fl (7.4-10.4); Monocytes # 0.8 K/mm3 (0.1-1.0); Monocytes % 6.4 % (1.7-9.3); Neutrophils # 9.4 K/mm3 (1.8-7.8); Neutrophils % 72.7 % (37.0-80.0); Platelet Count 238 K/mm3 (142-424); Red Cell Distribution Width 13.8 % (11.5-17.5); White Blood Count 12.9 K/mm3 (4.8-10.8)
[2024-04-05 12:52] VITALS: BP 126/74; PULSE 65; RESP 14; O2SAT 98; BMI 34.4
[2024-04-05 13:19] LABS: Erythrocyte Sedimentation Rate 82 mm/hr (0-30)
[2024-04-05 13:38] LABS: Anion Gap 12.2 mEq/L (5-15); Blood Urea Nitrogen 15 mg/dl (7-17); Calcium 9.1 mg/dl (8.4-10.2); Carbon Dioxide 23 mmol/L (22.0-30.0); Chloride 108 mmol/L (98-107); Creatinine Clearance Estimated 81 mL/min (50-200); Estimated Glomerular Filt Rate 83 ml/min (>60); GFR (African American) 101 ML/MIN (>60); Glucose 80 mg/dl (74-100); Potassium 4.2 mmoL/L (3.5-5.1); Sodium 139 mmol/L (136-145); Uric Acid 6.6 mg/dl (2.5-6.2)
== END 2024-04-05 23:59 | disposition home or self-care (01) ==
PROVIDERS: PCP Nurse Practitioner Family; Visit Provider Nurse Practitioner Family
DX: M25.562 Pain in left knee (principal); M25.561 Pain in right knee; G89.29 Other chronic pain; M25.462 Effusion, left knee; Z73.89 Other problems related to life management difficulty; Z79.899 Other long term (current) drug therapy
CPT/HCPCS: 36415; 73562; 80048; 84550; 85025; 85651; 99212; G0463

== ENCOUNTER 2024-05-01 10:56 | Day surgery (SDC) | payer MEDICARE, OTHER, SELFPAY ==
[2024-05-01 11:13] VITALS: BP 118/83; PULSE 66; RESP 16; TEMP 36.8; O2SAT 100; BMI 34.9
[2024-05-01] MEDS: methylPREDNISolone ACETATE 80MG/ML VIAL 80 MG (11:22)
[2024-05-01 11:23] VITALS: BP 102/87; PULSE 87; RESP 18; O2SAT 96
[2024-05-01] MEDS: LIDOCAINE 1% 5ML PF VIAL 5 ML (11:23)
[2024-05-01] MEDS: BUPIVACAINE 0.25% 10ML INJ 25 MG IJ (11:23)
--- NOTE | 2024-05-01 11:26 | EXP.PAIN.PRO ---
Procedure Date: 05/01/24 Time: 11:10 Anesthesiologist:: Dustin Jaquez CRNA Complications:: None Pre-procedure Diagnosis:: DJD bilateral knee. Chronic bilateral knee pain. Post-procedure Diagnosis:: Same. Indications for Procedure:: Patient is a very pleasant 68-year-old female who comes our clinic today for bilateral intra-articular knee injections of cortisone and local anesthetic. Patient has responded very well to intra-articular knee injections in the past. She describes bilateral knee pain as constant, dull, aching. She rates her pain 7/10. Procedure Details:: Details of the procedure explained to the patient. The patient taken procedure room placed in the sitting position. The over the right knee was cleaned using chlorhexidine as a cleansing solution. Using a 22-gauge inch and half needle the right knee joint was accessed from the anterior lateral position. After negative aspiration 4 cc of 1% lidocaine +4 cc of 0.25% Marcaine and 40 mg of Depo-Medrol was injected. Patient tolerated procedure without difficulty. There are no complications. Details of the procedure explained to the patient. The patient taken procedure room placed in the sitting position. The over the left knee was cleaned using chlorhexidine as a cleansing solution. Using a 22-gauge inch and half needle the left knee joint was accessed from the anterior lateral position. After negative aspiration 4 cc of 1% lidocaine +4 cc of 0.25% Marcaine and 40 mg of Depo-Medrol was injected. Patient tolerated procedure without difficulty. There are no complications. Plan and Disposition:: Patient was discharged without incident.
[2024-05-01 11:27] VITALS: BP 102/87; PULSE 78; RESP 18; O2SAT 96
[2024-05-01 11:29] VITALS: BP 119/69; PULSE 60; RESP 16; O2SAT 96
== END 2024-05-01 11:29 | disposition home or self-care (01) ==
PROVIDERS: PCP Nurse Practitioner Family; Visit Provider Nurse Anesthetist, Certified Registered
DX: M17.0 Bilateral primary osteoarthritis of knee (principal); M25.561 Pain in right knee; M25.562 Pain in left knee; G89.29 Other chronic pain
CPT/HCPCS: 20610; J1010

== ENCOUNTER 2024-05-02 09:36 | Outpatient (CLI) | payer MEDICARE, OTHER, SELFPAY ==
--- NOTE | 2024-05-02 09:37 | CT_ITS ---
FINAL REPORT CLINICAL HISTORY: rule out PAD FINDINGS: Post contrast axial imaging of the aorta and bilateral lower extremity was obtained and reviewed.This study was performed with techniques to keep radiation doses as low as reasonably achievable (ALARA). Individualized dose reduction techniques using automated exposure control or adjustment of mA and/or kV according to the patient''s size were employed. There is no evidence of aortic aneurysm or dissection. The mesenteric arteries are patent without significant stenosis there is calcification at the origin of the bilateral renal arteries. There is no significant stenosis. The bilateral common iliac arteries, internal iliac arteries, and external iliac arteries are patent. Right: The right common femoral artery is patent without stenosis. The right superficial femoral artery and right profunda are patent. There is mild atherosclerotic calcification at the distal left SFA. The right popliteal artery is patent. There is a three-vessel runoff in the calf to the ankle. Left: The left common femoral artery is patent. The left superficial femoral artery and profunda are patent without significant stenosis. The popliteal artery is patent. There is a three-vessel runoff in the calf to the ankle. There is minimal calcification scattered throughout the left lower extremity. There is a noncalcified right middle lobe pulmonary nodule measuring 5 mm. There is a granuloma at the right lung base. There is no acute abnormality of the solid abdominal organs. There is no small bowel obstruction. No acute GI tract abnormality. No lymphadenopathy. No ascites. IMPRESSION: 1. No evidence of abdominal aortic aneurysm or dissection. 2. No evidence of vessel occlusion or significant stenosis. 3. Mild atherosclerotic disease. 4. Noncalcified right middle lobe pulmonary nodule. Recommend follow-up exam after risk stratification per Fleischner criteria. Authenticated and ERN
[2024-05-02] MEDS: 0.9 % SODIUM CHLORIDE 50 ML VIAL 100 ML IV (10:15)
[2024-05-02] MEDS: SODIUM CHLORIDE 0.9% 10ML SYR (RAD ONLY) 10 ML IV (10:15)
[2024-05-02] MEDS: IOPAMIDOL-370 (76%);100ML BOTTLE 120 ML IV (10:15)
== END 2024-05-02 23:59 | disposition home or self-care (01) ==
LOC: RAD 09:37
PROVIDERS: PCP Nurse Practitioner Family; Visit Provider Physician Assistant
DX: I10 Essential (primary) hypertension (principal); Z01.810 Encounter for preprocedural cardiovascular examination; I73.9 Peripheral vascular disease, unspecified; R07.89 Other chest pain; R09.89 Other specified symptoms and signs involving the circulatory and respiratory systems; Z86.718 Personal history of other venous thrombosis and embolism; D68.9 Coagulation defect, unspecified; Z79.01 Long term (current) use of anticoagulants; Z86.711 Personal history of pulmonary embolism; E78.2 Mixed hyperlipidemia
CPT/HCPCS: 75635; Q9967

== ENCOUNTER 2024-05-04 11:05 | Outpatient (CLI) | payer MEDICARE, OTHER, SELFPAY ==
[2024-05-04 11:25] LABS: PHA INR Fingerstick 2.6 (0.9-1.1)
== END 2024-05-04 11:26 ==
LOC: ACC 11:06
PROVIDERS: PCP Nurse Practitioner Family; Visit Provider Internal Medicine Adolescent Medicine
DX: Z79.01 Long term (current) use of anticoagulants (principal); Z86.711 Personal history of pulmonary embolism
CPT/HCPCS: 85610; 99211; G0463

== ENCOUNTER 2024-05-14 08:45 | Outpatient (CLI) | payer MEDICARE, OTHER, SELFPAY ==
--- NOTE | 2024-05-14 08:49 | XR_ITS ---
FINAL REPORT TECHNIQUE: Bone mineral density was calculated of the lumbar spine and hip. CLINICAL HISTORY: screening COMPARISON: 07/26/2019 FINDINGS: Using the right forearm, the bone mineral density of the midportion of the forearm is 0.592 g/cm2, corresponding to T-score of -1.7. Using the left hip, the bone mineral density of the femoral neck is 0.862 g/cm2, corresponding to a T-score of 0.1. Using the right hip, the bone mineral density of the right femoral neck is 0.856 g/cm?, corresponding to a T-score of 0.1 NOTE: T-score: Standard deviation compared with peak bone mass of young adult mean. *Following the recommendations of the International Society of Bone densitometry, classification of hip BMD is based on the lower of two T-scores; total hip or femoral neck. IMPRESSION: Diminished bone mineral density of the right forearm consistent with osteopenia. Normal bone mineral density of bilateral hips. Reviewed, Interpreted and Dictated by Neftali Sauceda MD Transcribed by Samira Hewitt Authenticated and [facility]
--- NOTE | 2024-05-14 08:49 | MM_ITS ---
PROCEDURE INFORMATION: Exam: MG Bilateral Screening 3D Mammography Exam date and time: 05/14/2024 9:21 AM Age: 68 years old Clinical indication: Screening examination. A paternal aunt and paternal cousin had breast cancer. TECHNIQUE: Imaging protocol: Bilateral Screening tomosynthesis and 2D mammography including computer-aided detection (CAD) when performed. COMPARISON: 1. MG MM DIG SCREENING MAMM BI W/CAD 07/26/2019 2:53 PM 2. MG SCBI MM Dig screening mamm BI w/CAD 08/29/2017 9:01 AM 3. MG DMDXUL DIG MAMM-DX UNI-LT W/CAD 11/16/2016 12:02 PM 4. MG DMDXUAVL DIG MAMM-DX UNI A/VWS-LT W/CAD 10/26/2016 2:46 PM FINDINGS: MAMMOGRAPHY: Breast composition: There are scattered areas of fibroglandular density. Mass: No suspicious mass. Architectural distortion: None. Calcifications: No suspicious calcifications. Asymmetric density: None. Skin thickening: None. Axillary adenopathy: None. IMPRESSION: No mammographic evidence of malignancy. Annual screening is recommended unless otherwise clinically indicated. ASSESSMENT: BI-RADS Category 1: Negative.
--- OUTSIDE RECORDS SUMMARY | 2024-05-17 20:09 | XMS_ITS | Clinical Summary ---
Author Organization [facility] Address [address] [place] [address] Phone Care Team Providers Care Quality Assurance Supervisor Trim Name Role Phone JOVI JIMENES, АНДРЕЙ Primary Care Provider [phone] Tony JIMENES, Cristiano York Unavailable [phone] Reason for Visit and Chief Complaint [place] Injection Problems Includes: Problems addressed during this encounter and other active Problems All Visits Onset Date Resolved Date Provider Condition S tatus Joint Pain, Localized in the Right Shoulder 09/21/2021 Morris Madrid PA-C Active Last Documented On 2 10:31AM ; [facility], [facility] Joint Pain in Both Knees 09/16/2021 Elvira frausto PA-C Active Last Documented On 2 1:34PM ; [facility] Plan of Treatment No Plan of Treatment Recorded Assessments Includes: Assessments from this encounter No Assessments Recorded Medical Equipment - Implanted Devices Includes: Current Devices No Medical Equipment Recorded Medications Includes: Medications discussed during this encounter and other current Medications Current Medications (continue as prescribed) rOPINIRole HCl 1 MG Oral Tablet 11/19/2021 Provider: АНДРЕЙ ESPANA MD Diagnosis: Last Documented On 2 2:59PM By Greg Steele ; [facility], [facility] Dicyclomine HCl 10 MG Oral Capsule 11/19/2021 Provid er: Diagnosis: Last Documented On 2 2:59PM By Greg Steele ; [facility] Levocetirizine Dihydrochloride 5 MG Oral Tablet 2021 Provider: Diagnosis: Last Documented On 2 2:59PM By Greg Steele ; [facility] DULoxetine HCl 60 MG Oral Ca psule Delayed Release Particles 11/06/2021 Provider: АНДРЕЙ ESPANA MD Diagnosis: Last Documented On 2 2:59PM By Greg Steele ; [facility] rOPINIRole HCl 1 MG Oral Tablet 10/21/2021 Provider: АНДРЕЙ ESPANA MD Diagnosis: Last Documented On 2 2:59PM By Greg Steele ; [facility] Warfarin Sodium 7.5 MG Oral Tablet 10/14/2021 Provid er: АНДРЕЙ ESPANA MD Diagnosis: Last Documented On 2 2:59PM By Greg Steele ; [facility] Omeprazole 20 MG Oral Capsule Delayed Release 10/15/19 Provider: АНДРЕЙ ESPANA MD Diagnosis: Last Documented On 2 2:59PM By Greg Steele ; [facility] Levocetirizine Dihydrochloride 5 MG Oral Tablet 2021 Provider: Diagnosis: Last Documented On 2 2:59PM By Greg Steele ; [facility] Azelastine HCl 137 MCG/SPRAY Nasal Solution 10/13/2021 Provider: Diagnosis: Last Documented On 2 2:59PM By Greg Steele ; [facility] Oxybutynin Chloride 5 MG Oral Tablet 10/09/2021 Prov ider: Diagnosis: Last Documented On 2 2:59PM By Greg Steele ; [facility] Atorvastatin Calcium 20 MG Oral Tablet 10/09/2021 Pr ovider: Diagnosis: Last Documented On 2 2:59PM By Greg Steele ; [facility] Montelukast Sodium 10 MG Oral Tablet 09/28/2021 Prov ider: Diagnosis: Last Documented On 2 2:59PM By Greg Steele ; [facility] Amitriptyline HCl 50 MG Oral Tablet 09/22/2021 Provi benjy: АНДРЕЙ ESPANA MD Diagnosis: Last Documented On 2 2:59PM By Greg Steele ; [facility], [facility] traMADol HCl 50 MG Oral Tablet 09/11/2021 Provider: АНДРЕЙ ESPANA MD Diagnosis: Last Documented On 2 10:21AM By Autumn Bloom ; [facility] Metaxalone 800 MG Oral Tablet 09/11/2021 Provider: Sandra Lenz APRN Diagnosis: Last Documented On 2 10:21AM By Autumn Bloom ; [facility], [facility] Gabapentin 300 MG Oral Capsule 09/10/2021 Provider: АНДРЕЙ ESPANA MD Diagnosis: Last Documented On 2 10:21AM By Autumn Bloom ; [facility], [facility] amLODIPine Besylate 5 MG Oral Tablet 09/04/2021 Prov ider: Diagnosis: Last Documented On 2 10:21AM By Autumn Bloom ; [facility], [facility] Advair Diskus 500-50 MCG/ACT Inhalation Aerosol Powder Breath Activated 08/19/2021 Provider: Diagnosis: Last Documented On 2 10:21AM By Autumn Bloom ; [facility], [facility] Medications Administered Includes: Administered Medications from this encounter No Administered Medications Recorded Results Includes: Results discussed during this encounter No Results Recorded For Specified Dates History of Present Illness Includes: History of Present Illness from this encounter No History of Present Illness Recorded Social History No Social History Recorded - Smoking Status Unknown Medical History Includes: Medical History addressed during this encounter No Medical History Recorded Family History Includes: Family History addressed during this encounter No Family History Recorded Review of Systems Includes: Review of Systems from this encounter No Review of Systems Recorded Mental Status Includes: Mental Status from this encounter No Mental Status Recorded Functional Status Includes: Functional Status from this encounter No Functional Status Recorded Physical Exam Includes: Physical Exam from this encounter No Physical Exam Recorded Allergies Includes: Active Allergies Substance Type Reaction Onset Date Resolved Date Statu s Sulfa Antibiotics Allergy 04/03/2015 A ctive Last Documented On 3 9:51AM ; [facility] Omnicef Allergy 03/30/2019 Active Last Documented On 3 9:51AM ; [facility] metal Allergy 09/10/2020 Active Last Documented On 3 9:51AM ; [facility] Latex Allergy 07/01/2015 Active Last Documented On 3 9:51AM ; [facility] Biaxin Allergy 07/01/2015 Active Last Documented On 3 9:51AM ; [facility] Augmentin Allergy Skin Rashes / Er uption of skin, Hives / Urticaria 07/01/2015 Active Last Documented On 3 9:51AM ; [facility] adhesive tape Allergy 03/30/2019 Activ e Last Documented On 3 9:51AM ; [facility] Encounters Encounter Provider Location Date Check-In Time Check-Out Time Diagnosis [place] Injection Elvira Yanez PA-C [facility] 09/08/19 23 10:13AM 10:37AM Insurance Includes: Active Insurance Policies Plan Name Member ID Group # Subscriber Relationship Effect mario Dates 1 - Medicare Part B [facility] [id number] Ebonie Blue Self 04/08/19 09 - Unknown 2 - [employer] [id number] Ebonie Blue Self 2 - Unknown Clinical Notes Includes: Clinical Notes from this encounter No Clinical Notes Recorded
--- OUTSIDE RECORDS SUMMARY | 2024-05-17 20:09 | XMS_ITS | Clinical Summary ---
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 Helper Name Role Phone JOVI JIMENES, АНДРЕЙ Primary Care Provider [phone] Toyn JIMENES, Cristiano [place] Unavailable [phone] Reason for Visit and Chief Complaint [place] Injection Problems Includes: Problems addressed during this encounter and other active Problems All Visits Onset Date Resolved Date Provider Condition S tatus Joint Pain, Localized in the Right Shoulder 09/21/2021 Morris Madrid PA-C Active Last Documented On 2 10:31AM ; [facility], [facility] Joint Pain in Both Knees 09/16/2021 Elvira frausto PA-C Active Last Documented On 2 1:34PM ; [facility] Plan of Treatment No Plan of Treatment [...] On 2 2:59PM By Greg Steele ; [facility], [facility] Dicyclomine HCl 10 MG Oral Capsule 11/19/2021 Provid er: Diagnosis: Last Documented On 2 2:59PM By Greg Steele ; [facility] Levocetirizine Dihydrochloride 5 MG Oral Tablet 2021 Provider: Diagnosis: Last Documented On 2 2:59PM By Greg Steele ; [facility] DULoxetine HCl 60 MG Oral Ca psule Delayed Release Particles 11/06/2021 Provider: АНДРЕЙ ESPANA MD Diagnosis: Last Documented On 2 2:59PM By Greg Steele ; [facility] rOPINIRole HCl 1 MG Oral Tablet 10/21/2021 Provider: АНДРЕЙ ESPANA MD Diagnosis: Last Documented On 2 2:59PM By Greg Steele ; [facility] Warfarin Sodium 7.5 MG Oral Tablet 10/14/2021 Provid er: АНДРЕЙ ESPANA MD Diagnosis: Last Documented On 2 2:59PM By Greg Steele ; [facility] Omeprazole 20 MG Oral Capsule Delayed Release 10/15/19 Provider: АНДРЕЙ ESPANA MD Diagnosis: Last Documented On 2 2:59PM By Greg Steele ; [facility] Levocetirizine Dihydrochloride 5 MG Oral Tablet 2021 Provider: Diagnosis: Last Documented On 2 2:59PM By Greg Steele ; [facility] Azelastine HCl 137 MCG/SPRAY Nasal Solution 10/13/2021 Provider: Diagnosis: Last Documented On 2 2:59PM By Greg Steele ; [facility] Oxybutynin Chloride 5 MG Oral Tablet 10/09/2021 Prov ider: Diagnosis: Last Documented On 2 2:59PM By Greg Steele ; [facility] Atorvastatin Calcium 20 MG Oral Tablet 10/09/2021 Pr ovider: Diagnosis: Last Documented On 2 2:59PM By Greg Steele ; [facility] Montelukast Sodium 10 MG Oral Tablet 09/28/2021 Prov ider: Diagnosis: Last Documented On 2 2:59PM By Greg Steele ; [facility] Amitriptyline HCl 50 MG Oral Tablet 09/22/2021 Provi benjy: АНДРЕЙ ESPANA MD Diagnosis: Last Documented On 2 2:59PM By Greg Steele ; [facility], [facility] traMADol HCl 50 MG Oral Tablet 09/11/2021 Provider: АНДРЕЙ ESPANA MD Diagnosis: Last Documented On 2 10:21AM By Autumn Bloom ; [facility] Metaxalone 800 MG Oral Tablet 09/11/2021 Provider: Sandra Lenz APRN Diagnosis: Last Documented On 2 10:21AM By Autumn Bloom ; [facility], [facility] Gabapentin 300 MG Oral Capsule 09/10/2021 Provider: АНДРЕЙ ESPANA MD Diagnosis: Last Documented On 2 10:21AM By Autumn Bloom ; [facility], [facility] amLODIPine Besylate 5 MG Oral Tablet 09/04/2021 Prov ider: Diagnosis: Last Documented On 2 10:21AM By Autumn Bloom ; [facility], [facility] Advair Diskus 500-50 MCG/ACT Inhalation Aerosol Powder Breath Activated 08/19/2021 Provider: Diagnosis: Last Documented On 2 10:21AM By Autumn Bloom ; [facility] Medications Administered Includes: Administered Medications from [...] ctive Last Documented On 3 9:51AM ; [facility] Omnicef Allergy 03/30/2019 Active Last Documented On 3 9:51AM ; [facility] metal Allergy 09/10/2020 Active Last Documented On 3 9:51AM ; [facility] Latex Allergy 07/01/2015 Active Last Documented On 3 9:51AM ; [facility] Biaxin Allergy 07/01/2015 Active Last Documented On 3 9:51AM ; [facility] Augmentin Allergy Skin Rashes / Er uption of skin, Hives / Urticaria 07/01/2015 Active Last Documented On 3 9:51AM ; [facility] adhesive tape Allergy 03/30/2019 Activ e Last Documented On 3 9:51AM ; [facility] Encounters Encounter Provider Location Date Check-In Time Check-Out Time Diagnosis [place] Injection Elvira Yanez PA-C [facility] 08/25/19 23 9:37AM 10:06AM Insurance Includes: Active Insurance Policies Plan Name Member ID Group # Subscriber Relationship Effect mario Dates 1 - Medicare Part B [facility] [id number] Ebonie Blue Self 04/08/19 09 - Unknown 2 - [employer] [id number] Ebonie Blue Self 2 - Unknown Clinical Notes Includes: Clinical Notes from this encounter No Clinical Notes Recorded
--- OUTSIDE RECORDS SUMMARY | 2024-05-17 20:09 | XMS_ITS | Clinical Summary ---
Author Organization [facility] Address [address] [place] [address] Phone Care Team Providers Care B Operator Name Role Phone АНДРЕЙ ESPANA MD Primary Care Provider [phone] Tony JIMENES, Cristiano [place] Unavailable [phone] [...] Active Last Documented On 2 10:31AM ; [facility] Joint Pain in Both Knees 09/16/2021 Elvira frausto PA-C Active Last Documented On 2 1:34PM ; [facility] Plan of Treatment SURGICAL PLAN: I reviewed [...] measures have included rest, activity modification, oral anti-inflammatories, exercise treatment and local pain reduction modalities. I explained the procedure and recovery to the patient. She wishes to proceed. The patient understands the risk of surgery to include but are not limited to infection, possible nerve damage, tendon or vessel injury, scar sensitivity and anesthesia.The patient understands the need for postoperative rehabilitation and therapy. The patient had no further questions regarding the surgery or potential risks. Procedure: Right shoulder rotator cuff repair, tenodesis using Arthrex This patient was prescribed a shoulder immobilizer for Rotator cuff tear. The patient has weakness and / or instability of their [right upper extremity] which requires stabilization from this semi-rigid / rigid orthosis to improve their function. Verbal and written instructions for the use and application of this item were given. Patient was instructed that should the brace result in increased pain, decreased sensation, increased swelling, or an overall worsening of their medical condition, to please contact our office immediately. Orthotic management and training was provided for skin care, modifications due to healing tissues, edema changes, interruption in skin integrity, and safety precautions with the orthosis. - Last Documented On 01/15/2022 9:12AM ; [facility] DO YOU SEE CARDIOLOGY? YES, PATIENT STATES THAT THEY ARE IN [place] DO YOU SEE A PUBLIC AFFAIRS SPECIALIST? NO ARE YOU A DIABETIC? NO IF YES A1C? DO YOU WEAR A CPAP/BIPAP? NO HAVE YOU EVER BEEN TOLD YOU NEED A SLEEP STUDY? NO DO YOU SEE RHEUMATOLOGY? SNEHA IS REFERRING THE PATIENT TO RHEUMATOLOGY DO YOU SEE NEUROLOGY? NO ANY HISTORY OF INFECTIOUS DISEASE? (MRSA, STAPH, ETC.) NO DO YOU TAKE BLOOD THINNERS? YES, WARFARIN DO YOU SEE PAIN MANAGEMENT? NO - Last Documented On 01/15/2022 9:12AM ; [facility] Pending Tests Order Diagnosis Results Due Ordering Cara gomez Radiology - MRI MRI Shoulder 10/07/21 Rock Toribio MD Last Documented On 2 11:09AM ; [facility] Instructions to patient Intervention and counseling on cessation of tobacco use Last Documented On 2 9:05AM ; [facility] Lose weight Last Documented On 2 9:05AM ; [facility] Assessments Includes: Assessments from this encounter Findings Right shoulder high grade partial thickness rotator cuff tear, with effusion - Last Documented On 01/15/2022 9:12AM ; [facility] Instructions Includes: Instructions from this encounter Instructions to patient Intervention and counseling on cessation of tobacco use Last Documented On 2 9:05AM ; [facility], [facility] Lose weight Last Documented On 2 9:05AM ; [facility] Medical Equipment - Implanted Devices Includes: Current Devices No Medical Equipment Recorded Medications Includes: Medications discussed during this encounter and other current Medications Current Medications (continue as prescribed) rOPINIRole HCl 1 MG Oral Tablet 11/19/2021 Provider: АНДРЕЙ ESPANA MD Diagnosis: Last Documented On 2 2:59PM By Greg Steele ; [facility] Dicyclomine HCl 10 MG Oral Capsule 11/19/2021 Provid er: Diagnosis: Last Documented On 2 2:59PM By Greg Steele ; [facility] Levocetirizine Dihydrochloride 5 MG Oral Tablet 2021 Provider: Diagnosis: Last Documented On 2 2:59PM By Greg Steele ; [facility] DULoxetine HCl 60 MG Oral Ca psule Delayed Release Particles 11/06/2021 Provider: АНДРЕЙ ESPANA MD Diagnosis: Last Documented On 2 2:59PM By Greg Steele ; [facility] rOPINIRole HCl 1 MG Oral Tablet 10/21/2021 Provider: АНДРЕЙ ESPANA MD Diagnosis: Last Documented On 2 2:59PM By Greg Steele ; [facility] Warfarin Sodium 7.5 MG Oral Tablet 10/14/2021 Provid er: АНДРЕЙ ESPANA MD Diagnosis: Last Documented On 2 2:59PM By Greg Steele ; [facility] Omeprazole 20 MG Oral Capsule Delayed Release 10/15/19 22 Provider: АНДРЕЙ ESPANA MD Diagnosis: Last Documented On 2 2:59PM By Greg Steele ; [facility] Levocetirizine Dihydrochloride 5 MG Oral Tablet 2021 Provider: Diagnosis: Last Documented On 2 2:59PM By Greg Steele ; [facility] Azelastine HCl 137 MCG/SPRAY Nasal Solution 10/13/2021 Provider: Diagnosis: Last Documented On 2 2:59PM By Greg Steele ; [facility] Oxybutynin Chloride 5 MG Oral Tablet 10/09/2021 Prov ider: Diagnosis: Last Documented On 2 2:59PM By Greg Steele ; [facility] Atorvastatin Calcium 20 MG Oral Tablet 10/09/2021 Pr ovider: Diagnosis: Last Documented On 2 2:59PM By Greg Steele ; [facility] Montelukast Sodium 10 MG Oral Tablet 09/28/2021 Prov ider: Diagnosis: Last Documented On 2 2:59PM By Greg Steele ; [facility] Amitriptyline HCl 50 MG Oral Tablet 09/22/2021 Provi benjy: АНДРЕЙ ESPANA MD Diagnosis: Last Documented On 2 2:59PM By Greg Steele ; [facility] traMADol HCl 50 MG Oral Tablet 09/11/2021 Provider: АНДРЕЙ ESPANA MD Diagnosis: Last Documented On 2 10:21AM By Autumn Bloom ; [facility] Metaxalone 800 MG Oral Tablet 09/11/2021 Provider: Sandra Lenz APRN Diagnosis: Last Documented On 10:21AM By Autumn Bloom ; [facility], [facility] Gabapentin 300 MG Oral Capsule 09/10/2021 Provider: АНДРЕЙ ESPANA MD Diagnosis: Last Documented On 2 10:21AM By Autumn Bloom ; [facility] amLODIPine Besylate 5 MG Oral Tablet 09/04/2021 Prov ider: Diagnosis: Last Documented On 2 10:21AM By Autumn Bloom ; [facility] Advair Diskus 500-50 MCG/ACT Inhalation Aerosol Powder Breath Activated 08/19/2021 Provider: Diagnosis: Last Documented On 10:21AM By Autumn Bloom ; [facility] Past Medications on file Amitriptyline HCl 25 MG Oral Tablet 08/26/2021 - 09/25/2021 Provider: АНДРЕЙ Asencio Diagnosis: Last Documented On 2 12:46PM By Lux Tabares ; [facility] Azelastine HCl 0.1% Nasal Solution 08/26/2021 - 2021 Provider: Diagnosis: Last Documented On 2 12:47PM By Lux Tabares ; [facility], [facility] Fluticasone Furoate 50 MCG/A CT Inhalation Aerosol Powder Breath Activated 08/26/2021 - 09/25/2021 Provider: АНДРЕЙ Asencio Diagnosis: Last Documented On 2 12:47PM By Lux Tabares ; [facility] Levocetirizine Dihydrochloride 5 MG Oral Tablet 08/26/2021 - 09/25/2021 Provider: Diagnosis: Last Documented On 12:47PM By Lux Tabares ; [facility], [facility] Warfarin Sodium 5 MG Oral Tablet 08/26/2021 - 09/24/19 Provider: АНДРЕЙ ESPANA MD Diagnosis: Last Documented On 12:47PM By Lux Tabares ; [facility] rOPINIRole HCl 0.25 MG Oral Tablet 08/26/2021 - 2021 Provider: Diagnosis: Last Documented On 12:46PM By Lux Tabares ; [facility], [facility] Oxybutynin Chloride 5 MG Oral Tablet 08/26/2021 - 09/07 Provider: Diagnosis: Last Documented On 2 12:46PM By Lux Tabares ; [facility] Omeprazole 20 MG Oral Ta blet Delayed Release Disintegrating 08/26/2021 - 09/25/2021 Provider: LILIA ESPANA MD Diagnosis: Last Documented On 2 12:46PM By Lux Tabares ; [facility] Montelukast Sodium 10 MG Ora l Tablet 08/26/2021 - 09/25/2021 Provider: АНДРЕЙ Asencio Diagnosis: Last Documented On 2 12:46PM By Lux Tabares ; [facility] DULoxetine HCl 60 MG Oral Ca psule Delayed Release Particles 08/26/2021 - 09/25/2021 Provider: АНДРЕЙ MENDOZA MD Diagnosis: Last Documented On 2 12:46PM By Lux Tabares ; [facility] Medications Administered Includes: Administered Medications from this encounter No Administered Medications Recorded Vital Signs Includes: Vital Signs from this encounter Vital Name 12/28/2021 09:13A Blood Pressure Sitting (mmHg) 139/84 Pulse Rate-Sitting (bpm) 87 Height (in) 65 Weight (lb) 201 Body Mass Index (kg/m2) 33.4 Body Surface Area (m2) 2.0 Note: cb Last Documented: On 12/28/2021 9:13AM ; [facility] Results Includes: Results discussed during this encounter No Results Recorded For Specified Dates History of Present Illness Includes: History of Present Illness from this encounter HPI Ebonie Blue is a 66 year old female. - Symptoms Giving away and popping. - Allergy list reviewed - Problem list reviewed - Medication list reviewed - Previous history of new onset pain several months ago. Pain is better with ice and taking Tylenol and Gabapentin. Pain is worse with lifting and specific movements - Sharp pain Symptoms - Pain is constant (100% of the time) - Pain is dull, aching - Yes, previous treatment. Sandra Lenz - History of Physical Therapy - History of Home Exercise - History of Chiropractic - History of Injections Medications used for this condition: Tylenol, Gabapentin 66 year old female presets today for follow up on her right shoulder. She previously saw my NGUYỄN Hogluin and was sent for an aspiration of her shoulder. She is here to go over the results of the aspiration. Social History Description Last Updated No recent change in diet 10/09/2021 Last Documented On 2 9:05AM ; [facility] Not a current smoker. 10/09/2021 Last Documented On 2 9:05AM ; [facility] Not a smoker 09/21/2021 Last Documented On 2 9:05AM ; [facility] Non-smoker 09/16/2021 Last Documented On 2 9:05AM ; [facility] Former smoker 08/26/2021 Last Documented On 2 9:05AM ; [facility] Has high school diploma 08/26/2021 Last Documented On 2 9:05AM ; [facility] Never drank alcohol 08/26/2021 Last Documented On 2 9:05AM ; [facility] Never used drugs 08/26/2021 Last Documented On 2 9:05AM ; [facility], [facility] Exercising regularly 07/27/2021 Last Documented On 2 9:05AM ; [facility] No recent change in diet fats ~ 07/28/19 Last Documented On 2 9:05AM ; [facility] Not a current smoker. 07/27/2021 Last Documented On 2 9:05AM ; [facility] Not using alcohol 07/27/2021 Last Documented On 2 9:05AM ; [facility] Not using drugs 07/27/2021 Last Documented On 2 9:05AM ; [facility] Smoking status : Former smoker 0 Last Documented On 2 9:05AM ; [facility] Caffeine use daily ~ 03/30/2019 Last Documented On 2 9:05AM ; [facility] Tobacco use 04/03/2015 Last Documented On 2 9:05AM ; [facility] Current smoker 04/03/2015 Last Documented On 2 9:05AM ; [facility] Procedures and Surgical History Includes: Procedures from this encounter Procedures Code Diagnosis Performing Provider Service L ocation Service Date intervention and counseling on cessation of tobacco use 4000F Last Documented On 2 9:05AM ; [facility], [facility] use of tobacco assessment performed 1000F Last Documented On 2 9:05AM ; [facility], [facility] patient not screened for future fall risk 3288F Last Documented On 2 9:05AM ; [facility], [facility] patient screened for future fall risk: documentation of any fall with injury in past year 1100F Last Documented On 2 9:05AM ; [facility] follow-up visit in one month with PCP fo r elevated BP Last Documented On 2 9:05AM ; [facility] follow-up visit in one month Last Documented On 2 9:14AM ; [facility] referral to physician Last Documented On 2 9:05AM ; [facility] Surgical History Last Updated History of appendectomy 04/03/2015 Last Documented On 2 9:05AM ; [facility] History of back surgery 04/03/2015 Last Documented On 2 9:05AM ; [facility] History of hysterectomy 04/03/2015 Last Documented On 2 9:05AM ; [facility] Medical History Includes: Medical History addressed during this encounter Description Last Updated Anemia 09/10/2020 Last Documented On 2 9:05AM ; [facility] Appendectomy 09/10/2020 Last Documented On 2 9:05AM ; [facility] Arthritis 09/10/2020 Last Documented On 2 9:05AM ; [facility] Back surgery 09/10/2020 Last Documented On 2 9:05AM ; [facility] Heartburn / Acid Reflux 09/10/2020 Last Documented On 2 9:05AM ; [facility] History of asthma 09/10/2020 Last Documented On 2 9:05AM ; [facility] History of Blood Clots 09/10/2020 Last Documented On 2 9:05AM ; [facility] History of Emphysema 09/10/2020 Last Documented On 2 9:05AM ; [facility] History of Gallbladder 09/10/2020 Last Documented On 2 9:05AM ; [facility] History of osteoporosis 09/10/2020 Last Documented On 2 9:05AM ; [facility] Hypertension 09/10/2020 Last Documented On 2 9:05AM ; [facility] Hysterectomy 09/10/2020 Last Documented On 2 9:05AM ; [facility] Recent immunization for flu 2019 021 Last Documented On 2 9:05AM ; [facility] Recent immunization for pneumococcal pne umonia 201909/10/2020 Last Documented On 2 9:05AM ; [facility] Carpal Tunnel/ Sinus ~Ovary Removed ~Removal of Scar Tissue- Abdominal ~Anemia ~Blood Clots ~High Cholesteral ~sleep apena ~Acid Reflux ~Blood Transfusion 03/30/2019 Last Documented On 2 9:05AM ; [facility] Liver disease 03/30/2019 Last Documented On 2 9:05AM ; [facility] A recent injection orthovisc 03/30/2019 Last Documented On 2 9:05AM ; [facility] Arthritic joint problems 04/03/2015 Last Documented On 2 9:05AM ; [facility] Gallbladder disease 04/03/2015 Last Documented On 2 9:05AM ; [facility] History of depression 04/03/2015 Last Documented On 2 9:05AM ; [facility] History of gastric ulcer 04/03/2015 Last Documented On 2 9:05AM ; [facility] Intermittent hypertension 04/03/2015 Last Documented On 2 9:05AM ; [facility] Family History Includes: Family History addressed during this encounter Description Last Updated Diabetes mellitus 09/10/2020 Last Documented On 2 9:05AM ; [facility] Family history of osteoporosis 1 Last Documented On 2 9:05AM ; [facility] Stroke / Seizures 09/10/2020 Last Documented On 2 9:05AM ; [facility] Stroke- Father/brother 03/30/2019 Last Documented On 2 9:05AM ; [facility] Family history of cancer mother 03/30/19 20 Last Documented On 2 9:05AM ; [facility] Family history of diabetes mellitus moth er/brother/daughter ~ 03/30/2019 Last Documented On 2 9:05AM ; [facility] Family history of heart disease father 0 03/30/2019 Last Documented On 2 9:05AM ; [facility] Family history of hypertension 0 Last Documented On 2 9:05AM ; [facility] Family history of thromboembolic disease 03/30/2019 Last Documented On 2 9:05AM ; [facility] Maternal history of diabetes mellitus Br other 04/03/2015 Last Documented On 2 9:05AM ; [facility] Maternal history of family history of ca ncer 04/03/2015 Last Documented On 2 9:05AM ; [facility] Maternal history of thromboembolic disea se 04/03/2015 Last Documented On 2 9:05AM ; [facility] Paternal history of family history of he art disease 04/03/2015 Last Documented On 2 9:05AM ; [facility] Paternal history of hypertension Brother 04/03/2015 Last Documented On 2 9:05AM ; [facility] Review of Systems Includes: Review of Systems from this encounter Systemic: Not feeling tired, no recent weight loss, and no recent weight gain. Head: No headache and no sinus pain. Eyes: No vision problems, no Cataracts, no Glasses/Contacts, and no Glaucoma. Otolaryngeal: No hearing loss and no tinnitus. Cardiovascular: No chest pain or discomfort, no palpitations, no Hypertension, and no High Cholesterol. Pulmonary: No daytime asthma symptoms and no chronic cough. No wheezing. Gastrointestinal: No heartburn and no abdominal pain. No Indigestion, no Acid Reflux, no Peptic Ulcer, no GI Stomach Bleed, and no Ulcers. Endocrine: No hot flashes, no muscle weakness, no Diabetes, no Hypothyroid, and no Hyperthyroid. Hematologic: No easy bleeding, no tendency for easy bruising, and no Anemia. Musculoskeletal: No Arthritis and no lower back pain. No soft tissue swelling and no localized joint pain. Neurological: No dizziness, no convulsions, and no numbness. Psychological: No anxiety, no emotional lability, no depression, and no insomnia. Not crying for no reason. Skin: No dry skin. No Ulcers, no Scars, and no rash. Allergic and Immunologic: No complaint of seasonal allergic reaction. Mental Status Includes: Mental Status from this encounter Description No anxiety Functional Status Includes: Functional Status from this encounter No Functional Status Recorded Physical Exam Includes: Physical Exam from this encounter Allergies Includes: Active Allergies Substance Type Reaction Onset Date Resolved Date Statu s Sulfa Antibiotics Allergy 04/03/2015 A ctive Last Documented On 3 9:51AM ; [facility] Omnicef Allergy 03/30/2019 Active Last Documented On 3 9:51AM ; [facility] metal Allergy 09/10/2020 Active Last Documented On 3 9:51AM ; [facility] Latex Allergy 07/01/2015 Active Last Documented On 3 9:51AM ; [facility] Biaxin Allergy 07/01/2015 Active Last Documented On 3 9:51AM ; [facility] Augmentin Allergy Skin Rashes / Er uption of skin, Hives / Urticaria 07/01/2015 Active Last Documented On 3 9:51AM ; [facility] adhesive tape Allergy 03/30/2019 Activ e Last Documented On 3 9:51AM ; [facility] Encounters Encounter Provider Location Date Check-In Time Check- Out Time Diagnosis Follow Up Rock Toribio MD [facility] 2 9:07AM 10:06AM Insurance Includes: Active Insurance Policies Plan Name Member ID Group # Subscriber Relationship Effect mario Dates 1 - Medicare Part B [facility] [id number] Ebonie Martell Su Self 04/08/19 09 - Unknown 2 - [employer] [id number] Ebonie Martell Su Self 2 - Unknown Clinical Notes Includes: Clinical Notes from this encounter No Clinical Notes Recorded
--- OUTSIDE RECORDS SUMMARY | 2024-05-17 20:09 | XMS_ITS ---
Author Organization [facility], [facility] Address [address] [place] [address] Phone Care Team Providers Care [employer] Supervisor Name Role Phone АНДРЕЙ ESPANA MD Primary Care Provider [phone] Tony JIMENES, Cristiano [place] Unavailable [phone] Physician - see pcp for bp 09/17/20 [facility] Cristiano Jimenez MD Refer ral To Physician - see pcp for bp 11/12/19 [facility] Cristiano Jimenez MD Refer ral To Physician - see pcp for BP 11/05/19 [facility] Cristiano Jimenez MD Refer ral To Physician - see pcp for BP 10/29/19 Ortho Marilyn Jimenez MD Refer ral To Physician - see pcp for BP 10/22/19 Follow Up Cristiano Jimenez MD Refer ral To Physician - see pcp for BP Problems Includes: Active, inactive, and resolved Problems All Visits Onset Date Resolved Date Provider Condition S tatus Joint Pain, Localized in the Right Shoulder 09/21/2021 Morris Madrid PA-C Active Last Documented On 2 10:31AM ; [facility] Joint Pain in Both Knees 09/16/2021 Elvira frausto PA-C Active Last Documented On 2 1:34PM ; [facility] Joint Pain, Localized in the Right Shoulder 07/27/2021 08/26/2021 Morris Madrid PA-C Resolved Last Documented On 2 12:45PM ; [facility] Joint Pain, Localized in the Knee 04/03/2015 08/26/2021 Rosalva Yanez PA-C Resolved Last Documented On 2 12:45PM ; [facility] Plan of Treatment Pending Tests Order Diagnosis Results Due Ordering P rovider Radiology - MRI MRI Shoulder 10/07/21 Rock Toribio MD Last Documented On 2 11:09AM ; [facility] Instructions to patient Intervention and counseling on cessation of tobacco use Last Documented On 2 9:05AM ; [facility] Lose weight Last Documented On 2 9:05AM ; [facility] Intervention and counseling on cessation of tobacco use Last Documented On 2 9:58AM ; [facility] Lose weight Last Documented On 2 9:58AM ; [facility] Intervention and counseling on cessation of tobacco use Last Documented On 2 10:41AM ; [facility] Lose weight Last Documented On 2 10:20AM ; [facility] No intervention and counseli ng on cessation of tobacco use Last Documented On 2 2:41PM ; [facility] Lose weight Last Documented On 2 2:41PM ; [facility] No intervention and counseli ng on cessation of tobacco use Last Documented On 2 10:22AM ; [facility] Lose weight Last Documented On 2 10:22AM ; [facility] No intervention and counseli ng on cessation of tobacco use Last Documented On 2 1:44PM ; [facility] Lose weight Last Documented On 2 1:34PM ; [facility] No intervention and counseli ng on cessation of tobacco use Last Documented On 2 1:41PM ; [facility] Lose weight Last Documented On 2 1:32PM ; [facility] Intervention and counseling on cessation of tobacco use Last Documented On 2 2:36PM ; [facility] Lose weight Last Documented On 2 2:36PM ; [facility] Instructions for patient SEE PCP FOR BP Last Documented On 2 1:27PM ; [facility] Instructions for patient to see pcp for bp Last Documented On 2 1:27PM ; [facility] Intervention and counseling on cessation of tobacco use Last Documented On 2 12:53PM ; [facility] Lose weight Last Documented On 2 12:53PM ; [facility] Instructions for patient SEE PCP FOR BP Last Documented On 1 8:39AM ; [facility] Instructions for patient to see pcp for bp Last Documented On 1 8:39AM ; [facility] Instructions for patient SEE PCP FOR BP Last Documented On 1 8:39AM ; [facility] Instructions for patient to see pcp for bp Last Documented On 1 8:39AM ; [facility] Instructions for patient SEE PCP FOR BP Last Documented On 1 8:38AM ; [facility] Instructions for patient to see pcp for bp Last Documented On 1 8:38AM ; [facility] Instructions for patient SEE PCP FOR BP Last Documented On 1 8:57AM ; [facility] Instructions for patient to see pcp for bp Last Documented On 1 8:57AM ; [facility] Instructions for patient SEE PCP FOR BP Last Documented On 0 9:48AM ; [facility] Instructions for patient to see pcp for bp Last Documented On 0 9:48AM ; [facility] Intervention and counseling on cessation of tobacco use Last Documented On 0 9:48AM ; [facility] Instructions for patient SEE PCP FOR BP Last Documented On 0 9:00AM ; [facility] Instructions for patient to see pcp for bp Last Documented On 0 9:00AM ; [facility] Intervention and counseling on cessation of tobacco use Last Documented On 0 9:00AM ; [facility] Instructions for patient SEE PCP FOR BP Last Documented On 0 2:45PM ; [facility] Instructions for patient to see pcp for bp Last Documented On 0 2:45PM ; [facility] Intervention and counseling on cessation of tobacco use Last Documented On 0 2:45PM ; [facility] Instructions for patient SEE PCP FOR BP Last Documented On 0 9:09AM ; [facility] Instructions for patient to see pcp for bp Last Documented On 0 9:54AM ; [facility] Intervention and counseling on cessation of tobacco use Last Documented On 0 9:54AM ; [facility] Instructions for patient SEE PCP FOR BP Last Documented On 0 9:41AM ; [facility] Instructions for patient to see pcp for bp Last Documented On 0 8:46AM ; [facility] Intervention and counseling on cessation of tobacco use Last Documented On 0 8:46AM ; [facility] Instructions for patient to see pcp for bp Last Documented On 0 8:57AM ; [facility] Intervention and counseling on cessation of tobacco use Last Documented On 0 8:57AM ; [facility] Instructions for patient to see pcp for bp Last Documented On 0 9:22AM ; [facility] Intervention and counseling on cessation of tobacco use Last Documented On 0 9:22AM ; [facility] Instructions for patient See PCP for weight and BP Last Documented On 8 9:33AM ; [facility] Lose weight Last Documented On 8 9:33AM ; [facility] Instructions for patient See PCP for weight and BP Last Documented On 8 9:23AM ; [facility] Lose weight Last Documented On 8 9:23AM ; [facility] Instructions for patient See PCP for weight and BP Last Documented On 8 9:40AM ; [facility] Lose weight Last Documented On 8 9:40AM ; [facility] Instructions for patient See PCP for weight and BP Last Documented On 8 12:55PM ; [facility] Intervention and counseling on cessation of tobacco use Last Documented On 8 12:55PM ; [facility] Lose weight Last Documented On 8 12:55PM ; [facility] Instructions for patient See PCP for weight and BP Last Documented On 7 12:56PM ; [facility] Intervention and counseling on cessation of tobacco use Last Documented On 7 12:56PM ; [facility] Lose weight Last Documented On 7 12:56PM ; [facility] Instructions for patient See PCP for weight and BP Last Documented On 7 10:03AM ; [facility] Intervention and counseling on cessation of tobacco use Last Documented On 7 10:03AM ; [facility] Lose weight Last Documented On 7 10:03AM ; [facility] Instructions for patient See PCP for weight and BP Last Documented On 7 1:17PM ; [facility] Intervention and counseling on cessation of tobacco use Last Documented On 7 1:17PM ; [facility] Lose weight Last Documented On 7 1:17PM ; [facility] Instructions for patient See PCP for weight and BP Last Documented On 7 1:59PM ; [facility] Intervention and counseling on cessation of tobacco use Last Documented On 7 1:59PM ; [facility] Lose weight Last Documented On 7 1:59PM ; [facility] Instructions for patient See PCP for weight and BP Last Documented On 7 8:49AM ; [facility] Intervention and counseling on cessation of tobacco use Last Documented On 7 8:49AM ; [facility] Lose weight Last Documented On 7 8:49AM ; [facility] Instructions for patient See PCP for weight and BP Last Documented On 7 9:11AM ; [facility] Intervention and counseling on cessation of tobacco use Last Documented On 7 9:11AM ; [facility] Lose weight Last Documented On 7 9:11AM ; [facility] Instructions for patient See PCP for weight and BP Last Documented On 7 9:48AM ; [facility] Intervention and counseling on cessation of tobacco use Last Documented On 7 9:48AM ; [facility] Lose weight Last Documented On 7 9:48AM ; [facility] Instructions for patient See PCP for weight and BP Last Documented On 7 9:11AM ; [facility] Intervention and counseling on cessation of tobacco use Last Documented On 7 9:11AM ; [facility] Lose weight Last Documented On 7 9:11AM ; [facility] Instructions for patient See PCP for weight and BP Last Documented On 6 10:44AM ; [facility] Intervention and counseling on cessation of tobacco use Last Documented On 6 10:44AM ; [facility] Lose weight Last Documented On 6 10:44AM ; [facility] Instructions for patient see pcp for bp and weight Last Documented On 6 9:41AM ; [facility] Intervention and counseling on cessation of tobacco use Last Documented On 6 9:40AM ; [facility] Instructions for patient See PCP for weight management and elevated B/P Last Documented On 6 8:53AM ; [facility] Intervention and counseling on cessation of tobacco use Last Documented On 6 8:53AM ; [facility] Lose weight Last Documented On 6 8:53AM ; [facility] Instructions for patient See PCP for weight management and elevated B/P Last Documented On 6 9:03AM ; [facility] Intervention and counseling on cessation of tobacco use Last Documented On 6 9:03AM ; [facility] Lose weight Last Documented On 6 9:03AM ; [facility] Instructions for patient See PCP for weight management and elevated B/P Last Documented On 6 9:17AM ; [facility] Intervention and counseling on cessation of tobacco use Last Documented On 6 9:17AM ; [facility] Lose weight Last Documented On 6 9:18AM ; [facility] Instructions for patient See PCP for weight management and elevated B/P Last Documented On 6 10:24AM ; [facility] Intervention and counseling on cessation of tobacco use Last Documented On 6 10:24AM ; [facility] Instructions for patient See PCP for weight management and elevated B/P Last Documented On 6 10:32AM ; [facility] Intervention and counseling on cessation of tobacco use Last Documented On 6 10:32AM ; [facility] Education and Decision Aids were provided during visit for: Health seminar on smoking ce ssation Last Documented On 2 1:27PM ; [facility] Health seminar on smoking ce ssation Last Documented On 1 8:39AM ; [facility] Health seminar on smoking ce ssation Last Documented On 1 8:39AM ; [facility] Health seminar on smoking ce ssation Last Documented On 1 8:38AM ; [facility] Health seminar on smoking ce ssation Last Documented On 1 8:57AM ; [facility] Health seminar on smoking ce ssation Last Documented On 0 9:48AM ; [facility] Health seminar on smoking ce ssation Last Documented On 0 9:00AM ; [facility] Health seminar on smoking ce ssation Last Documented On 0 2:45PM ; [facility] Health seminar on smoking ce ssation Last Documented On 0 9:54AM ; [facility] Health seminar on smoking ce ssation Last Documented On 0 8:46AM ; [facility] Health seminar on smoking ce ssation Last Documented On 0 8:57AM ; [facility] Health seminar on smoking ce ssation Last Documented On 0 9:22AM ; [facility] Health seminar on smoking ce ssation Last Documented On 8 9:33AM ; [facility] Health seminar on smoking ce ssation Last Documented On 8 9:23AM ; [facility] Health seminar on smoking ce ssation Last Documented On 8 9:40AM ; [facility] Health seminar on smoking ce ssation Last Documented On 8 12:55PM ; [facility] Health seminar on smoking ce ssation Last Documented On 7 12:56PM ; [facility] Health seminar on smoking ce ssation Last Documented On 7 10:03AM ; [facility] Health seminar on smoking ce ssation Last Documented On 7 1:17PM ; [facility] Health seminar on smoking ce ssation Last Documented On 7 1:59PM ; [facility] Health seminar on smoking ce ssation Last Documented On 7 8:49AM ; [facility] Health seminar on smoking ce ssation Last Documented On 7 9:11AM ; [facility] Health seminar on smoking ce ssation Last Documented On 7 9:48AM ; [facility] Health seminar on smoking ce ssation Last Documented On 7 9:11AM ; [facility] Health seminar on smoking ce ssation Last Documented On 6 10:44AM ; [facility] Health seminar on smoking ce ssation Last Documented On 6 9:40AM ; [facility] Health seminar on smoking ce ssation Last Documented On 6 8:53AM ; [facility] Health seminar on smoking ce ssation Last Documented On 6 9:03AM ; [facility] Health seminar on smoking ce ssation Last Documented On 6 9:17AM ; [facility] Health seminar on smoking ce ssation Last Documented On 6 10:24AM ; [facility] Health seminar on smoking ce ssation Last Documented On 6 10:32AM ; [facility] Assessments Includes: Assessments for all patient encounters No Assessments Recorded Instructions Includes: Instructions for all patient encounters Instructions to patient Intervention and counseling on cessation of tobacco use Last Documented On 2 9:05AM ; [facility] Lose weight Last Documented On 2 9:05AM ; [facility] Intervention and counseling on cessation of tobacco use Last Documented On 2 9:58AM ; [facility] Lose weight Last Documented On 2 9:58AM ; [facility] Intervention and counseling on cessation of tobacco use Last Documented On 2 10:41AM ; [facility] Lose weight Last Documented On 2 10:20AM ; [facility] No intervention and counseli ng on cessation of tobacco use Last Documented On 2 2:41PM ; [facility] Lose weight Last Documented On 2 2:41PM ; [facility] No intervention and counseli ng on cessation of tobacco use Last Documented On 2 10:22AM ; [facility] Lose weight Last Documented On 2 10:22AM ; [facility] No intervention and counseli ng on cessation of tobacco use Last Documented On 2 1:44PM ; [facility] Lose weight Last Documented On 2 1:34PM ; [facility] No intervention and counseli ng on cessation of tobacco use Last Documented On 2 1:41PM ; [facility] Lose weight Last Documented On 2 1:32PM ; [facility] Intervention and counseling on cessation of tobacco use Last Documented On 2 2:36PM ; [facility] Lose weight Last Documented On 2 2:36PM ; [facility] Instructions for patient SEE PCP FOR BP Last Documented On 2 1:27PM ; [facility] Instructions for patient to see pcp for bp Last Documented On 2 1:27PM ; [facility] Intervention and counseling on cessation of tobacco use Last Documented On 2 12:53PM ; [facility] Lose weight Last Documented On 2 12:53PM ; [facility] Instructions for patient SEE PCP FOR BP Last Documented On 1 8:39AM ; [facility] Instructions for patient to see pcp for bp Last Documented On 1 8:39AM ; [facility] Instructions for patient SEE PCP FOR BP Last Documented On 1 8:39AM ; [facility] Instructions for patient to see pcp for bp Last Documented On 1 8:39AM ; [facility] Instructions for patient SEE PCP FOR BP Last Documented On 1 8:38AM ; [facility] Instructions for patient to see pcp for bp Last Documented On 1 8:38AM ; [facility] Instructions for patient SEE PCP FOR BP Last Documented On 1 8:57AM ; [facility] Instructions for patient to see pcp for bp Last Documented On 1 8:57AM ; [facility] Instructions for patient SEE PCP FOR BP Last Documented On 0 9:48AM ; [facility] Instructions for patient to see pcp for bp Last Documented On 0 9:48AM ; [facility] Intervention and counseling on cessation of tobacco use Last Documented On 0 9:48AM ; [facility] Instructions for patient SEE PCP FOR BP Last Documented On 0 9:00AM ; [facility] Instructions for patient to see pcp for bp Last Documented On 0 9:00AM ; [facility] Intervention and counseling on cessation of tobacco use Last Documented On 0 9:00AM ; [facility] Instructions for patient SEE PCP FOR BP Last Documented On 0 2:45PM ; [facility] Instructions for patient to see pcp for bp Last Documented On 0 2:45PM ; [facility] Intervention and counseling on cessation of tobacco use Last Documented On 0 2:45PM ; [facility] Instructions for patient SEE PCP FOR BP Last Documented On 0 9:09AM ; [facility] Instructions for patient to see pcp for bp Last Documented On 0 9:54AM ; [facility] Intervention and counseling on cessation of tobacco use Last Documented On 0 9:54AM ; [facility] Instructions for patient SEE PCP FOR BP Last Documented On 0 9:41AM ; [facility] Instructions for patient to see pcp for bp Last Documented On 0 8:46AM ; [facility] Intervention and counseling on cessation of tobacco use Last Documented On 0 8:46AM ; [facility] Instructions for patient to see pcp for bp Last Documented On 0 8:57AM ; [facility] Intervention and counseling on cessation of tobacco use Last Documented On 0 8:57AM ; [facility] Instructions for patient to see pcp for bp Last Documented On 0 9:22AM ; [facility] Intervention and counseling on cessation of tobacco use Last Documented On 0 9:22AM ; [facility] Instructions for patient See PCP for weight and BP Last Documented On 8 9:33AM ; [facility] Lose weight Last Documented On 8 9:33AM ; [facility] Instructions for patient See PCP for weight and BP Last Documented On 8 9:23AM ; [facility] Lose weight Last Documented On 8 9:23AM ; [facility] Instructions for patient See PCP for weight and BP Last Documented On 8 9:40AM ; [facility] Lose weight Last Documented On 8 9:40AM ; [facility] Instructions for patient See PCP for weight and BP Last Documented On 8 12:55PM ; [facility] Intervention and counseling on cessation of tobacco use Last Documented On 8 12:55PM ; [facility] Lose weight Last Documented On 8 12:55PM ; [facility] Instructions for patient See PCP for weight and BP Last Documented On 7 12:56PM ; [facility] Intervention and counseling on cessation of tobacco use Last Documented On 7 12:56PM ; [facility] Lose weight Last Documented On 7 12:56PM ; [facility] Instructions for patient See PCP for weight and BP Last Documented On 7 10:03AM ; [facility] Intervention and counseling on cessation of tobacco use Last Documented On 7 10:03AM ; [facility] Lose weight Last Documented On 7 10:03AM ; [facility] Instructions for patient See PCP for weight and BP Last Documented On 7 1:17PM ; [facility] Intervention and counseling on cessation of tobacco use Last Documented On 7 1:17PM ; [facility] Lose weight Last Documented On 7 1:17PM ; [facility] Instructions for patient See PCP for weight and BP Last Documented On 7 1:59PM ; [facility] Intervention and counseling on cessation of tobacco use Last Documented On 7 1:59PM ; [facility] Lose weight Last Documented On 7 1:59PM ; [facility] Instructions for patient See PCP for weight and BP Last Documented On 7 8:49AM ; [facility] Intervention and counseling on cessation of tobacco use Last Documented On 7 8:49AM ; [facility] Lose weight Last Documented On 7 8:49AM ; [facility] Instructions for patient See PCP for weight and BP Last Documented On 7 9:11AM ; [facility] Intervention and counseling on cessation of tobacco use Last Documented On 7 9:11AM ; [facility] Lose weight Last Documented On 7 9:11AM ; [facility] Instructions for patient See PCP for weight and BP Last Documented On 7 9:48AM ; [facility] Intervention and counseling on cessation of tobacco use Last Documented On 7 9:48AM ; [facility] Lose weight Last Documented On 7 9:48AM ; [facility] Instructions for patient See PCP for weight and BP Last Documented On 7 9:11AM ; [facility] Intervention and counseling on cessation of tobacco use Last Documented On 7 9:11AM ; [facility] Lose weight Last Documented On 7 9:11AM ; [facility] Instructions for patient See PCP for weight and BP Last Documented On 6 10:44AM ; [facility] Intervention and counseling on cessation of tobacco use Last Documented On 6 10:44AM ; [facility] Lose weight Last Documented On 6 10:44AM ; [facility] Instructions for patient see pcp for bp and weight Last Documented On 6 9:41AM ; [facility] Intervention and counseling on cessation of tobacco use Last Documented On 6 9:40AM ; [facility] Instructions for patient See PCP for weight management and elevated B/P Last Documented On 6 8:53AM ; [facility] Intervention and counseling on cessation of tobacco use Last Documented On 6 8:53AM ; [facility] Lose weight Last Documented On 6 8:53AM ; [facility] Instructions for patient See PCP for weight management and elevated B/P Last Documented On 6 9:03AM ; [facility] Intervention and counseling on cessation of tobacco use Last Documented On 6 9:03AM ; [facility] Lose weight Last Documented On 6 9:03AM ; [facility] Instructions for patient See PCP for weight management and elevated B/P Last Documented On 6 9:17AM ; [facility] Intervention and counseling on cessation of tobacco use Last Documented On 6 9:17AM ; [facility] Lose weight Last Documented On 6 9:18AM ; [facility] Instructions for patient See PCP for weight management and elevated B/P Last Documented On 6 10:24AM ; [facility] Intervention and counseling on cessation of tobacco use Last Documented On 6 10:24AM ; [facility] Instructions for patient See PCP for weight management and elevated B/P Last Documented On 6 10:32AM ; [facility] Intervention and counseling on cessation of tobacco use Last Documented On 6 10:32AM ; [facility] Education and Decision Aids were provided during visit for: Health seminar on smoking ce ssation Last Documented On 2 1:27PM ; [facility] Health seminar on smoking ce ssation Last Documented On 1 8:39AM ; [facility] Health seminar on smoking ce ssation Last Documented On 1 8:39AM ; [facility] Health seminar on smoking ce ssation Last Documented On 1 8:38AM ; [facility] Health seminar on smoking ce ssation Last Documented On 1 8:57AM ; [facility] Health seminar on smoking ce ssation Last Documented On 0 9:48AM ; [facility] Health seminar on smoking ce ssation Last Documented On 0 9:00AM ; [facility] Health seminar on smoking ce ssation Last Documented On 0 2:45PM ; [facility] Health seminar on smoking ce ssation Last Documented On 0 9:54AM ; [facility] Health seminar on smoking ce ssation Last Documented On 0 8:46AM ; [facility] Health seminar on smoking ce ssation Last Documented On 0 8:57AM ; [facility] Health seminar on smoking ce ssation Last Documented On 0 9:22AM ; [facility] Health seminar on smoking ce ssation Last Documented On 8 9:33AM ; [facility] Health seminar on smoking ce ssation Last Documented On 8 9:23AM ; [facility] Health seminar on smoking ce ssation Last Documented On 8 9:40AM ; [facility] Health seminar on smoking ce ssation Last Documented On 8 12:55PM ; [facility] Health seminar on smoking ce ssation Last Documented On 7 12:56PM ; [facility] Health seminar on smoking ce ssation Last Documented On 7 10:03AM ; [facility] Health seminar on smoking ce ssation Last Documented On 7 1:17PM ; [facility] Health seminar on smoking ce ssation Last Documented On 7 1:59PM ; [facility] Health seminar on smoking ce ssation Last Documented On 7 8:49AM ; [facility] Health seminar on smoking ce ssation Last Documented On 7 9:11AM ; [facility] Health seminar on smoking ce ssation Last Documented On 7 9:48AM ; [facility] Health seminar on smoking ce ssation Last Documented On 7 9:11AM ; [facility] Health seminar on smoking ce ssation Last Documented On 6 10:44AM ; [facility] Health seminar on smoking ce ssation Last Documented On 6 9:40AM ; [facility] Health seminar on smoking ce ssation Last Documented On 6 8:53AM ; [facility] Health seminar on smoking ce ssation Last Documented On 6 9:03AM ; [facility] Health seminar on smoking ce ssation Last Documented On 6 9:17AM ; [facility] Health seminar on smoking ce ssation Last Documented On 6 10:24AM ; [facility] Health seminar on smoking ce ssation Last Documented On 6 10:32AM ; [facility] Medical Equipment - Implanted Devices Includes: Current and historical Devices No Medical Equipment Recorded Medications Includes: Current and historical Medications Current Medications (continue as prescribed) rOPINIRole HCl 1 MG Oral Tablet 11/19/2021 Provider: АНДРЕЙ ESPANA MD Diagnosis: Last Documented On 2 2:59PM By Greg Steele ; [facility] Dicyclomine HCl 10 MG Oral Capsule 11/19/2021 Provid er: Diagnosis: Last Documented On 2 2:59PM By Greg Steele ; [facility] Levocetirizine Dihydrochloride 5 MG Oral Tablet 2021 Provider: Diagnosis: Last Documented On 2 2:59PM By Greg Steele ; [facility] DULoxetine HCl 60 MG Oral Ca psule Delayed Release Particles 11/06/2021 Provider: АНДРЕЙ ESPANA MD Diagnosis: Last Documented On 2 2:59PM By Greg Steele ; [facility] rOPINIRole HCl 1 MG Oral Tablet 10/21/2021 Provider: АНДРЕЙ ESPANA MD Diagnosis: Last Documented On 2 2:59PM By Greg Steele ; [facility] Warfarin Sodium 7.5 MG Oral Tablet 10/14/2021 Provid er: АНДРЕЙ ESPANA MD Diagnosis: Last Documented On 2 2:59PM By Greg Steele ; [facility] Omeprazole 20 MG Oral Capsule Delayed Release 10/15/19 Provider: АНДРЕЙ ESPANA MD Diagnosis: Last Documented On 2 2:59PM By Greg Steele ; [facility] Levocetirizine Dihydrochloride 5 MG Oral Tablet 2021 Provider: Diagnosis: Last Documented On 2 2:59PM By Greg Steele ; [facility] Azelastine HCl 137 MCG/SPRAY Nasal Solution 10/13/2021 Provider: Diagnosis: Last Documented On 2 2:59PM By Greg Steele ; [facility] Oxybutynin Chloride 5 MG Oral Tablet 10/09/2021 Prov ider: Diagnosis: Last Documented On 2 2:59PM By Greg Steele ; [facility] Atorvastatin Calcium 20 MG Oral Tablet 10/09/2021 Pr ovider: Diagnosis: Last Documented On 2 2:59PM By Greg Steele ; [facility] Montelukast Sodium 10 MG Oral Tablet 09/28/2021 Prov ider: Diagnosis: Last Documented On 2 2:59PM By Greg Steele ; [facility] Amitriptyline HCl 50 MG Oral Tablet 09/22/2021 Provi benjy: АНДРЕЙ ESPANA MD Diagnosis: Last Documented On 2 2:59PM By Greg Steele ; [facility] traMADol HCl 50 MG Oral Tablet 09/11/2021 Provider: АНДРЕЙ ESPANA MD Diagnosis: Last Documented On 10:21AM By Autumn Bloom ; [facility] Metaxalone 800 MG Oral Tablet 09/11/2021 Provider: Sandra Lenz APRN Diagnosis: Last Documented On 10:21AM By Autumn Bloom ; [facility] Gabapentin 300 MG Oral Capsule 09/10/2021 Provider: АНДРЕЙ ESPANA MD Diagnosis: Last Documented On 10:21AM By Autumn Bloom ; [facility], [facility] amLODIPine Besylate 5 MG Oral Tablet 09/04/2021 Prov ider: Diagnosis: Last Documented On 10:21AM By Autumn Bloom ; [facility] Advair Diskus 500-50 MCG/ACT Inhalation Aerosol Powder Breath Activated 08/19/2021 Provider: Diagnosis: Last Documented On 10:21AM By Autumn Bloom ; [facility] Past Medications on file Amitriptyline HCl 25 MG Oral Tablet 08/26/2021 - 09/25/2021 Provider: АНДРЕЙ Asencio Diagnosis: Last Documented On 12:46PM By Lux Tabares ; [facility], [facility] Azelastine HCl 0.1% Nasal Solution 08/26/2021 - 2021 Provider: Diagnosis: Last Documented On 12:47PM By Lux Tabares ; [facility], [facility] traMADol HCl 50 MG Oral Tablet 08/26/2021 - 09/21/2021 Provider: АНДРЕЙ ESPANA MD Diagnosis: Last Documented On 10:22AM By Autumn Bloom ; [facility], [facility] Fluticasone Furoate 50 MCG/A CT Inhalation Aerosol Powder Breath Activated 08/26/2021 - 09/25/2021 Provider: АНДРЕЙ Asencio Diagnosis: Last Documented On 12:47PM By Lux Tabares ; [facility], [facility] Levocetirizine Dihydrochloride 5 MG Oral Tablet 08/26/2021 - 09/25/2021 Provider: Diagnosis: Last Documented On 2 12:47PM By Lux Tabares ; [facility], [facility] Warfarin Sodium 5 MG Oral Tablet 08/26/2021 - 09/24/19 Provider: АНДРЕЙ ESPANA MD Diagnosis: Last Documented On 2 12:47PM By Lux Tabares ; [facility], [facility] rOPINIRole HCl 0.25 MG Oral Tablet 08/26/2021 - 2021 Provider: Diagnosis: Last Documented On 2 12:46PM By Lux Tabares ; [facility], [facility] Oxybutynin Chloride 5 MG Oral Tablet 08/26/2021 - 09/07 Provider: Diagnosis: Last Documented On 2 12:46PM By Lux Tabares ; [facility], [facility] Omeprazole 20 MG Oral Ta blet Delayed Release Disintegrating 08/26/2021 - 09/25/2021 Provider: LILIA ESPANA MD Diagnosis: Last Documented On 2 12:46PM By Lux Tabares ; [facility], [facility] Montelukast Sodium 10 MG Ora l Tablet 08/26/2021 - 09/25/2021 Provider: АНДРЕЙ Asencio Diagnosis: Last Documented On 2 12:46PM By Lux Tabares ; [facility], [facility] DULoxetine HCl 60 MG Oral Ca psule Delayed Release Particles 08/26/2021 - 09/25/2021 Provider: АНДРЕЙ MENDOZA MD Diagnosis: Last Documented On 2 12:46PM By Lux Tabares ; [facility], [facility] Amitriptyline HCl 25 MG Oral Tablet 03/19/2019 - 08/26/2021 Provider: АНДРЕЙ Asencio Diagnosis: Last Documented On 2 12:46PM By Lux Tabares ; [facility], [facility] DULoxetine HCl 60 MG Oral Ca psule Delayed Release Particles 03/19/2019 - 08/26/2021 Provider: АНДРЕЙ MENDOZA MD Diagnosis: Last Documented On 2 12:46PM By Lux Tabares ; [facility], [facility] Montelukast Sodium 10 MG Ora l Tablet 03/18/2019 - 08/26/2021 Provider: АНДРЕЙ Asencio Diagnosis: Last Documented On 2 12:46PM By Lux Tabares ; [facility], [facility] Omeprazole 20 MG Oral Ta blet Delayed Release Disintegrating 03/14/2019 - 08/26/2021 Provider: LILIA ESPANA MD Diagnosis: Last Documented On 2 12:46PM By Lux Tabares ; [facility], [facility] Oxybutynin Chloride 5 MG Oral Tablet 03/14/2019 - 08/08 Provider: Diagnosis: Last Documented On 12:46PM By Lux Tabares ; [facility], [facility] rOPINIRole HCl 0.25 MG Oral Tablet 03/14/2019 - 2021 Provider: Diagnosis: Last Documented On 2 12:46PM By Lux Tabares ; [facility], [facility] Warfarin Sodium 5 MG Oral Tablet 03/05/2019 - 08/27/19 Provider: АНДРЕЙ ESPANA MD Diagnosis: Last Documented On 2 12:47PM By Lux Tabares ; [facility], [facility] Azelastine HCl 0.1% Nasal Solution 02/28/2019 - 2021 Provider: Diagnosis: Last Documented On 2 12:47PM By Lux Tabares ; [facility], [facility] Fluticasone Furoate 50 MCG/A CT Inhalation Aerosol Powder Breath Activated 02/28/2019 - 08/26/2021 Provider: АНДРЕЙ Asencio Diagnosis: Last Documented On 2 12:47PM By Lux Tabares ; [facility], [facility] traMADol HCl 50 MG Oral Tablet 02/28/2019 - 08/26/2021 Provider: АНДРЕЙ ESPANA MD Diagnosis: Last Documented On 2 12:47PM By Lux Tabares ; [facility], [facility] Cephalexin 500 MG Oral Capsule 02/24/2019 - 08/26/2021 Provider: Chan Odell APRN Diagnosis: Last Documented On 2 12:46PM By Lux Tabares ; [facility], [facility] Levocetirizine Dihydrochloride 5 MG Oral Tablet 02/22/2019 - 08/26/2021 Provider: Diagnosis: Last Documented On 2 12:47PM By Lux Tabares ; [facility], [facility] Mupirocin Calcium 2% External Cream 02/22/2019 - 08/26 Provider: Diagnosis: Last Documented On 2 12:46PM By Lux Tabares ; [facility], [facility] Singulair 4MG Oral Packet 01/03/2017 - 03/30/2019 Prov ider: Diagnosis: Last Documented On 0 9:27AM By Rach Bruner ; [facility], [facility] Atorvastatin Calcium 10MG Oral Tablet 01/03/2017 - Provider: Diagnosis: Last Documented On 0 9:27AM By Rach Bruner ; [facility], [facility] Amitriptyline HCl 10MG Oral Tablet 01/03/2017 - 2019 Provider: Diagnosis: Last Documented On 0 9:27AM By Rach Bruner ; [facility], [facility] Lansoprazole 15MG Oral Capsule Delayed Release 1 03/05/2016 - 03/30/2019 Provider: Diagnosis: Last Documented On 0 9:27AM By Rach Bruner ; [facility], [facility] Benazepril-Hydrochlorothiazide 10-12.5 MG Tablet 04/03/2015 - 01/03/2017 Provider: Diagnosis: Last Documented On 7 2:03PM By Mee Kumar ; [facility], [facility] Furosemide 20 MG Tablet 04/03/2015 - 01/03/2017 Provid er: Diagnosis: Last Documented On 7 2:03PM By Mee Kumar ; [facility], [facility] Losartan Potassium 25 MG Tablet 04/03/2015 - 0 Provider: Diagnosis: Last Documented On 0 9:27AM By Rach Bruner ; [facility], [facility] Calcium-Vitamin D3 500-400 MG-UNIT Tablet 04/03/2015 - 03/30/2019 Provider: Diagnosis: Last Documented On 0 9:27AM By Rach Bruner ; [facility], [facility] Aspirin 325 MG Tablet 04/03/2015 - 03/30/2019 Provider : Diagnosis: Last Documented On 0 9:27AM By Rach Bruner ; [facility], [facility] Abilify 2 MG Tablet 04/03/2015 - 03/30/2019 Provider: Diagnosis: Last Documented On 0 9:27AM By Rach Bruner ; [facility], [facility] Cymbalta 60 MG Capsule Delayed Release Particles 04/03/2015 - 03/30/2019 Provider: Diagnosis: Last Documented On 0 9:27AM By Rach Bruner ; [facility], [facility] Warfarin Sodium 5 MG Tablet 04/03/2015 - 03/30/2019 Pr ovider: Diagnosis: Last Documented On 0 9:27AM By Rach Bruner ; [facility], [facility] Warfarin Sodium 7.5 MG Tablet 04/03/2015 - 01/03/2017 Provider: Diagnosis: Last Documented On 7 2:03PM By Mee Kumar ; [facility], [facility] Piroxicam 20 MG Capsule 04/03/2015 - 01/03/2017 Provid er: Diagnosis: Last Documented On 7 2:02PM By Mee Kumar ; [facility], [facility] Gabapentin 300 MG Capsule 04/03/2015 - 01/03/2017 Prov ider: Diagnosis: Last Documented On 7 2:03PM By Mee Kumar ; [facility], [facility] TraMADol HCl ER 300 MG Table t Extended Release 24 Hour 04/03/2015 - 03/30/2019 Provider: Diagnosis: Last Documented On 0 9:27AM By Rach Bruner ; [facility], [facility] [place] 10-325 MG Tablet 04/03/2015 - 01/03/2017 Provide r: Diagnosis: Last Documented On 7 2:03PM By Mee Kumar ; [facility], [facility] Skelaxin 800 MG Tablet 04/03/2015 - 03/30/2019 Provide r: Diagnosis: Last Documented On 0 9:27AM By Rach Bruner ; [facility], [facility] Medications Administered Includes: Administered Medications in patient's chart No Administered Medications Recorded Results Includes: Results from 05/18/2023 through 05/17/2024 No Results Recorded For Specified Dates History of Present Illness History of Present Illness not supported for this document type No History of Present Illness Recorded Social History Description Last Updated No recent change in diet 10/09/2021 Last Documented On 2 1:29PM ; [facility] Not a current smoker. 10/09/2021 Last Documented On 2 1:29PM ; [facility] Not a smoker 09/21/2021 Last Documented On 2 2:35PM ; [facility] Non-smoker 09/16/2021 Last Documented On 2 1:57PM ; [facility] Former smoker 08/26/2021 Last Documented On 2 1:28PM ; [facility] Has high school diploma 08/26/2021 Last Documented On 2 1:28PM ; [facility] Never drank alcohol 08/26/2021 Last Documented On 2 1:28PM ; [facility] Never used drugs 08/26/2021 Last Documented On 2 1:28PM ; [facility] Exercising regularly 07/27/2021 Last Documented On 2 5:39PM ; [facility] No recent change in diet fats ~ 07/28/19 Last Documented On 2 5:39PM ; [facility] Not a current smoker. 07/27/2021 Last Documented On 2 5:39PM ; [facility] Not using alcohol 07/27/2021 Last Documented On 2 5:39PM ; [facility] Not using drugs 07/27/2021 Last Documented On 2 5:39PM ; [facility] Smoking status : Former smoker 0 Last Documented On 0 9:33AM ; [facility] Caffeine use daily ~ 03/30/2019 Last Documented On 0 8:19AM ; [facility] Tobacco use 04/03/2015 Last Documented On 6 4:42PM ; [facility] Current smoker 04/03/2015 Last Documented On 6 4:42PM ; [facility], [facility] Procedures and Surgical History Surgical History Last Updated History of appendectomy 04/03/2015 Last Documented On 6 4:42PM ; [facility], [facility] History of back surgery 04/03/2015 Last Documented On 6 4:42PM ; [facility], [facility] History of hysterectomy 04/03/2015 Last Documented On 6 4:42PM ; [facility], [facility] Medical History Includes: Medical History in patient's chart Description Last Updated Anemia 09/10/2020 Last Documented On 11:54AM ; [facility], [facility] Appendectomy 09/10/2020 Last Documented On 11:54AM ; [facility], [facility] Arthritis 09/10/2020 Last Documented On 11:54AM ; [facility], [facility] Back surgery 09/10/2020 Last Documented On 1 11:54AM ; [facility], [facility] Heartburn / Acid Reflux 09/10/2020 Last Documented On 1 11:54AM ; [facility] History of asthma 09/10/2020 Last Documented On 1 11:54AM ; [facility] History of Blood Clots 09/10/2020 Last Documented On 1 11:54AM ; [facility], [facility] History of Emphysema 09/10/2020 Last Documented On 1 11:54AM ; [facility], [facility] History of Gallbladder 09/10/2020 Last Documented On 1 11:54AM ; [facility], [facility] History of osteoporosis 09/10/2020 Last Documented On 1 11:54AM ; [facility], [facility] Hypertension 09/10/2020 Last Documented On 1 11:54AM ; [facility], [facility] Hysterectomy 09/10/2020 Last Documented On 11:54AM ; [facility], [facility] Recent immunization for flu 2020 021 Last Documented On 1 11:54AM ; [facility] Recent immunization for pneumococcal pne umonia 201909/10/2020 Last Documented On 1 11:54AM ; [facility] Carpal Tunnel/ Sinus ~Ovary Removed ~Removal of Scar Tissue- Abdominal ~Anemia ~Blood Clots ~High Cholesteral ~sleep apena ~Acid Reflux ~Blood Transfusion 03/30/2019 Last Documented On 0 8:19AM ; [facility] Liver disease 03/30/2019 Last Documented On 0 8:19AM ; [facility] A recent injection orthovisc 03/30/2019 Last Documented On 0 8:19AM ; [facility] Arthritic joint problems 04/03/2015 Last Documented On 6 4:42PM ; [facility] Gallbladder disease 04/03/2015 Last Documented On 6 4:42PM ; [facility] History of depression 04/03/2015 Last Documented On 6 4:42PM ; [facility] History of gastric ulcer 04/03/2015 Last Documented On 6 4:42PM ; [facility] Intermittent hypertension 04/03/2015 Last Documented On 6 4:42PM ; [facility] Family History Includes: Family History in patient's chart Description Last Updated Diabetes mellitus 09/10/2020 Last Documented On 1 11:54AM ; [facility] Family history of osteoporosis 1 Last Documented On 1 11:54AM ; [facility] Stroke / Seizures 09/10/2020 Last Documented On 1 11:54AM ; [facility] Stroke- Father/brother 03/30/2019 Last Documented On 0 8:19AM ; [facility] Family history of cancer mother 03/30/19 20 Last Documented On 0 8:19AM ; [facility] Family history of diabetes mellitus moth er/brother/daughter ~ 03/30/2019 Last Documented On 0 8:19AM ; [facility], [facility] Family history of heart disease father 0 03/30/2019 Last Documented On 0 8:19AM ; [facility], [facility] Family history of hypertension 0 Last Documented On 0 8:19AM ; [facility], [facility] Family history of thromboembolic disease 03/30/2019 Last Documented On 0 8:19AM ; [facility], [facility] Maternal history of diabetes mellitus Br other 04/03/2015 Last Documented On 6 4:42PM ; [facility], [facility] Maternal history of family history of ca ncer 04/03/2015 Last Documented On 6 4:42PM ; [facility], [facility] Maternal history of thromboembolic disea se 04/03/2015 Last Documented On 6 4:42PM ; [facility], [facility] Paternal history of family history of he art disease 04/03/2015 Last Documented On 6 4:42PM ; [facility], [facility] Paternal history of hypertension Brother 04/03/2015 Last Documented On 6 4:42PM ; [facility], [facility] Review of Systems Review of Systems not supported for this document type No Review of Systems Recorded Mental Status No Mental Status Recorded Functional Status No Functional Status Recorded Physical Exam Physical Exam not supported for this document type No Physical Exam Recorded Immunizations Includes: Immunizations in patient's chart Vaccine Dose # Date Site Reaction(s) Status Source Influenza 1 03/30/2019 Complete (Reported) Patient Last Documented On 0 10:30AM ; [facility], [facility] Influenza 2 11/07/2020 Complete (Reported) Patient Last Documented On 2 11:39AM ; [facility] Influenza 3 12/08/2021 Complete (Reported) Patient Last Documented On 2 10:00AM ; [facility] PCV (Pneumovax 23) 1 03/30/2019 Series Com plete (Reported) Patient Last Documented On 0 10:30AM ; [facility], [facility] Td 1 09/23/2021 Complete (Refused - Patient objection) [facility] Last Documented On 2 3:52PM ; [facility] Allergies Includes: Active, inactive, and resolved Allergies Substance Type Reaction Onset Date Resolved Date Statu s Sulfa Antibiotics Allergy 04/03/2015 A ctive Last Documented On 3 9:51AM ; [facility] Omnicef Allergy 03/30/2019 Active Last Documented On 3 9:51AM ; [facility] metal Allergy 09/10/2020 Active Last Documented On 3 9:51AM ; [facility] Latex Allergy 07/01/2015 Active Last Documented On 3 9:51AM ; [facility] Biaxin Allergy 07/01/2015 Active Last Documented On 3 9:51AM ; [facility] Augmentin Allergy Skin Rashes / Er uption of skin, Hives / Urticaria 07/01/2015 Active Last Documented On 3 9:51AM ; [facility] adhesive tape Allergy 03/30/2019 Activ e Last Documented On 3 9:51AM ; [facility] Insurance Includes: Active Insurance Policies Plan Name Member ID Group # Subscriber Relationship Effect mario Dates 1 - Medicare Part B [facility] [id number] Ebonie Blue Self 04/08/19 09 - Unknown 2 - [facility] [place] [id number] Ebonie Blue Self 2 - Unknown Clinical Notes Includes: Signed Clinical Notes starting from 01/21/2022 No Clinical Notes Recorded
--- OUTSIDE RECORDS SUMMARY | 2024-05-17 20:09 | XMS_ITS ---
Care Plan - [facility] Created on: May 17, 2024 Ebonie Blue : 1955 Sex: Female Author Organization [facility] Address [address] [place] [address] Phone Care Team Providers Care Black Ash Worker Name Role Phone JOVI JIMENES, АНДРЕЙ Primary Care Provider [phone] Tony JIMENES, Cristiano [place] [facility] [phone]
--- OUTSIDE RECORDS SUMMARY | 2024-05-17 20:09 | XMS_ITS | Data Portability ---
Author Organization [place] [facility] Address [address] [place] [address] Assessment Encounter Date Assessment Date Assessment LastModified by Organization Details LastModified Time 01/05/2022 01/05/2022 A 66 year old female [email or web address] Not available 01/05/2022 14:18:43 Plan of Treatment Reminders Order Date Submit Date Provider Last Modified By Organization Details Last Modified Time Details Appointments None recorded. Lab ccp (cyclic citrullinat ed peptide) iga+igg, serum 2021 [facility], [address] [place] [address], [id number], 18:26:55 ESR (erythrocyt e sedimentati on rate), blood 2021 [facility], [address] [place] [address], [id number], 16:40:26 C reactive protein, QN, serum or plasma 2021 [facility], [address] [place] [address], [id number], 15:36:19 rf (rheumatoid factor), serum 2021 [facility], [address] [place] [address], [id number], 15:36:17 CK (creatine kinase), total, serum 2021 [facility], [address] [place] [address], [id number], 15:36:20 CLAIRE (antinuclea r antibodies) panel, serum 2021 [facility], [address] [place] [address], [id number], 19:41:43 Referral None recorded. Procedures None recorded. Surgeries None recorded. Imaging XR, joint, multiple, 1 view 2021 [facility], [address] [place] [address], [id number], 15:04:57 Medication Orders None recorded. Patient TargetsNo targets recorded. Patient Instructions Encounter Date Encounter Id Patient Instructions Last Modified By Organization Details Last Modified Time 01/05/2022 [id number] medical record request* - Please fax us her MRI right shoulder report for our review. [email or web address] Not available 01/12/2022 08:12:31 Joint symptoms mostly mechanical related to degenerative joint disease. Has advanced CMC and hand osteoarthritis. She is getting CMC/first compartment of left wrist injection per [facility] hand surgery. Has left more than right knee osteoarthritis under care of [facility] orthopedic and getting injection for that. She has right shoulder aching pain, failed injection and physical therapy. MRI right shoulder per [facility] note at indicated partial rotator cuff tear and surgery recommended however patient deferred ' she may think it over early 2022 . No clear synovitis, dactylitis or enthesopathy. She has limited range of motion of her right shoulder especially abduction and rotations. No clear sclerodactyly. No clear muscle atrophy. No muscle weakness. Able to stand from sitting position with no assistance. Recommend patient to continue follow-up with [facility] orthopedic as it relate to the right shoulder rotator cuff/DJD management. We will proceed with illustrated plan of care for work-up completion risk stratification from rheumatology perspective. We will retrieve the MRI report done at [facility] for our review. Age-appropriate cancer screening cardiovascular risk assessment per primary care. Patient was made aware that her option from rheumatology perspective is limited as she cannot take nonsteroidal anti-inflammatory because of the current blood thinner. Continue Tylenol arthritis as needed. May apply Voltaren gel to her hands and CMC on as needed bases. Continue wearing the thumb spica for stability and support. Primary care could consider low dose of tramadol defer to their kind discretion. All her question answered. Psychiatric orthopedic office note reviewed. RTC in 8 weeks Thank you for the trust and confidence you have in the care that I provided for your patients. Please let me know if you have any further questions or concerns. Tamia Newell MD, CCD, FACP [email or web address] Not available 01/06/2022 12:55:10 Reason for Referral None Reported. Results Created Date Observation Date Name Description Value Unit Range Abnormal Flag Note LastModifiedBy Organization Detail LastModifiedTime 01/06/20 22 01/05/2022 RF SCREE N, QUANT . rf screen, quant. <10.0 IU/mL 0.0-13 .9 normal Not Available [facility] [address] [place] [address], [id number], 01/05/2022 15:36:17 01/06/20 22 01/05/2022 C REACT PALMER PROTE IN C reactive protein 0.78 mg/dL 0.00-0 .49 high Not Available [facility] [address] [place] [address], [id number], 01/05/2022 15:36:19 01/06/20 22 01/05/2022 CREAT INE KINAS E creatine kinase 110 U/L 0-169 normal Not Available [facility] [address] [place] [address], [id number], 01/05/2022 15:36:20 01/06/20 22 01/05/2022 ESR, AUTOM ATED ESR, automated 23 mm 0-29 normal Not Available [facility] [address] [place] [address], [id number], 01/05/2022 16:40:26 01/06/20 22 01/06/2022 ANTI- CCP anti-ccp <16 units normal Refer ence Range Negat aplmer: <20 Weak Posit palmer: 20-39 Moder ate Posit palmer: 40-59 Stron g Posit palmer: >59 TEST PERFO RMED AT: [facility] [address] [place] [address] KINSEY Kemp MD Not Available [facility] [address] [place] [address], [id number], 01/06/2022 18:26:55 01/06/20 22 01/07/2022 CLAIRE W/ REFLE X CLAIRE screen NEGATI VE negati ve normal CLAIRE IFA is a first line scree n for detec ting the prese nce of up to appro ximat sophie 150 autoa ntibo dies in vario us autoi mmune disea ses. A negat palmer CLAIRE IFA resul t sugge sts an CLAIRE-a ssoci ated autoi mmune disea se is not prese nt at this time, but is not defin itive . If there is high clini sanjuana suspi cion for Sjogr en's syndr ome, testi ng for anti- SS-A/ Ro antib samson shoul d be consi dered . Anti- Aissatou-1 antib samson shoul d be consi dered for clini lo suspe cted infla mmato ry myopa mitul . AC-0: Negat palmer Inter natio nal Conse nsus on CLAIRE Patte rns (http s://d oi.or g/10. 1515/ [facility]- 2017- 0052) For addit ional infor brigitte hinojosa e refer to http: //[facility].Que stDia gnost ics.c om/fa q/FAQ 177 (This link is being provi ded for infor matio nal/ educa sylwia l purpo ses only. ) TEST PERFO RMED AT: [facility] [address] [place] [address] KINSEY Kemp MD Not Available [facility] [address] [place] [address], [id number], 01/07/2022 19:41:43 01/06/20 22 01/05/2022 XR, joint , multi ple, 1 view [facility] [address] [place] [id number] [facility] [place] [address] Syd kennedy Name: EBONIE kennedy : 957 Syd kennedy 88 Orderi ng Provid er: TAMIA CONTRERAS EXAM DATE: 2021 EXAM: XR ENE HANDS, AP VIEW HISTOR Y: Bilate ral hand pain COMPAR JOHANN: None. FINDIN GS: The bones of the left and right hand are normal in alignm ent. There is no eviden ce of fractu re. There are modera te degene rative change s. There are mild to modera te degene rative change s in the interp halang eal joints . There are mild to modera te degene rative change s in the first carpom etacar pal joint and trisca phe joint bilate rally. IMPRES NATALIA: 1. There are modera te degene rative change s in the left and right hand. Interp reted By: Jovi coronado MD Electr onical ly Signed By: Jovi coronado MD on 2021 2:59 PM [email or web address] [facility] [address] [facility], [place], [address], 01/06/2022 09:17:33 01/13/20 22 09/30/2021 MRI, shoul benjy, w/o contr ast No observ ation record ed. [email or web address] [facility] (Med Record) [address], [place], [address], 01/13/2022 12:58:37 Result Notes None recorded. Procedures Surgical History Date Name Laterality Status Provider Name and Address Organization Details Recorded Time 5 Carpal tunnel surgery completed Lisa Steele [facility] 01/05/2022 13:42:24 Imaging Results Imaging Date Name Status LastModified by Organiz ation Details LastModified Time 01/05/2022 XR, joint, multiple, 1 view completed [email or web address] [facility] [address] [place], [address], 01/06/2022 09:17:33 09/30/2021 MRI, shoulder, w/o contrast completed [id number] (Med Record) [address], [place], [address], 01/13/2022 12:58:37 Procedure Notes None recorded. Medical Equipment None Reported. Allergies Allergen ID Allergen Name Allergen Category Reaction Reaction Severity Criticality Documentation Date Start Date Code Code System Note Provider Name and Address Organization Details Recorded Time 309953 latex environme nt,medica tion rash mild low 01/05/2022 66881 91 RxNorm Lisa Steele [facility] 2 13:40:00 253252 adhesive environme nt,medica tion rash mild low 01/05/2022 39963 UNK Lisa Steele [facility] 2 13:40:20 400570 Product containin g penicilli n (product) medicatio n rash mild low 01/05/2022 84581 8001 SNOMED Lisa Steele [facility] 2 13:40:51 036483 Substance with sulfonami de structure and antibacte rial mechanism of action (substanc e) medicatio n rash mild low 01/05/2022 74441 8003 [facility] Lisa Steele [facility] 2 13:41:16 Medications Name Sig Start Date Stop Date Status Note LastModified by Organization Details LastModified Time fluticasone 250 mcg-salmeter ol 50 mcg/dose blistr powdr for inhalation Inhale 1 puff twice a day by inhalation route. active Not Available Not Available No t Available atorvastatin 20 mg tablet Take 1 tablet every day by oral route. active Not Available Not Available No t Available ropinirole 1 mg tablet Take 1 tablet every day by oral route at bedtime. active Not Available Not Available No t Available warfarin 7.5 mg tablet Take 1 tablet every day by oral route. active Not Available Not Available No t Available amlodipine 5 mg tablet Take 1 tablet every day by oral route. active Not Available Not Available No t Available amitriptylin e 50 mg tablet Take 1 tablet every day by oral route at bedtime. active Not Available Not Available No t Available Advair Diskus 500 mcg-50 mcg/dose powder for inhalation Inhale 1 puff twice a day by inhalation route. active Not Available Not Available No t Available gabapentin 300 mg capsule Take 4 capsules 3 times a day by oral route. active Not Available Not Available No t Available omeprazole 20 mg capsule,azucena yed release Take 1 capsule every day by oral route. active Not Available Not Available No t Available montelukast 10 mg tablet Take 1 tablet every day by oral route. active Not Available Not Available No t Available oxybutynin chloride 5 mg tablet Take 1 tablet twice a day by oral route. active Not Available Not Available No t Available metaxalone 800 mg tablet Take 1 tablet twice a day by oral route. active Not Available Not Available No t Available duloxetine 60 mg capsule,azucena yed release Take 1 capsule twice a day by oral route. active Not Available Not Available No t Available Epi E-Z Pen active Not Available Not A vailable Not Available levocetirizi ne 5 mg tablet Take 1 tablet every day by oral route. active Not Available Not Available No t Available albuterol sulfate 90 mcg/actuatio n breath activated powder inhaler Inhale 2 puffs every 4 hours by inhalation route. active Not Available Not Available No t Available latanoprost (PF) 0.005 % eye drops in each eye before bedtime active Not Available Not Available No t Available Vitals Date Recorded Body height Body mass index (BMI) Body weight Respiratory rate Heart rate Oxygen saturation Oxygen saturation in Arterial blood by Pulse oximetry Systolic blood pressure Diastolic blood pressure Provider Name and Address Organization Details Last Updated DateTime 2 165.1 cm 33.9 kg/m2 64997.8 4 g 18 /min 78 /min 96 % 96 % 126 mm[Hg] 74 mm[Hg] Lisa Steele [facility] 13:44:18 Social History Question Answer Notes LastModified by Organizat ion Details LastModified Time Tobacco Smoking Status Current Every Day Smoker Lisa Steele [facility] 01/05/2022 13:41:53 What Is Your Level Of Alcohol Consumption? Occasional [email or web address] Information not available 01/05/2022 What Was The Date Of Your Most Recent Tobacco Screening? 01/05/2022 [email or web address] Information not available 01/05/2022 How Much Tobacco Do You Smoke? 1 PPD [email or web address] Information not available 01/05/2022 Do You Use Any Illicit Or Recreational Drugs? No [email or web address] Information not available 01/05/2022 Have You Recently Traveled Abroad? No [email or web address] Information not available 01/05/2022 Sex: Unknown Functional Status None recorded. Mental Status None recorded. Family History Nothing Reported. Medical History No medical history recorded. Gynecological HistoryNo gynecological history recorded. Obstetrics History GPAL:G 0 P 0 0 0 0 Past Encounters Encounter ID Performer Location Encounter Start Date Encounter Closed Date Diagnosis/Indication Diagnosis SNOMED-CT Code Diagnosis ICD10 Code Diagnosis Note [id number] [facility] [address] [place] [address] 01/05/2022 13:12:01 01/06/2022 10:15:53 Multiple joint pain 90094592 M25.50 Rotator cu ff arthropathy of right shoulder 6069275689 7906527 M25.811 Osteoarthr itis of joint of bilateral hands 3016006602 11026 M19.041 M19.042 Osteoarthr osis of the carpometacarpal joint of the thumb 60901214 M18.9 Bilateral osteoarthritis of knees 9351176175 81240 M17.0 Health Concerns Section Related Observation LastModified by Organization Detai ls LastModified Time None Recorded Concern Status LastModified by Organization Details LastModified Time None Recorded Advance Directives Directive None Recorded Payers Encounter Date Sequence Insurance Name Policy Number Policy Titus Covered Member ID Titus Member ID Guarantor Name 01/05/2022 1 [place] Ebonie Blue [id number] Ebonie Blue 01/05/2022 2 [employer] - MEDICARE SELECT - PLAN F (MEDICARE SUPPLEMENT) Ebonie Blue [id number] Ebonie Blue Notes Date Note Type Note Provider Name and Address Organization Details Recorded Time 01/05/2022 text/html A 66-year-old fe male here with her with history of fibromyalgia on duloxetine, gabapentin, amitriptyline, osteoarthritis hands, CMC osteoarthritis, right shoulder rotator cuff disease, under care of [facility] orthopedic with partial tear, O recommended surgery as she failed PT and injection. She is on blood thinner for clotting disorder. wearing thumb spica, under care of hand clinic s/p CMC injection and 1st compartment injection as well with no clear benefit. She sees pain management and plan to get C spine injection. She also getting injection to her knees per [facility]. No personal history of psoriasis or IBD. No current fever, chest pain or shortness of air at rest. No history of Raynaud's phenomenon. No double vision, vision loss or jaw claudication or headache. TAMIA NEWELL MD [address] [place] [address], [phone], [facility] 01/06/2022 12:55:20 OBGyn Episode No OBEpisode recorded.
--- OUTSIDE RECORDS SUMMARY | 2024-05-17 20:09 | XMS_ITS | Clinical Summary ---
Author Organization [facility] Address [address] [place] [address] Phone Care Team Providers Care Railway Signal Operator Name Role Phone JOVI JIMENES, АНДРЕЙ Primary Care Provider [phone] Tony JIMENES, Cristiano [place] Unavailable [phone] Reason for Visit and Chief Complaint HOOVER Injection Problems Includes: Problems addressed during this encounter and other active Problems All Visits Onset Date Resolved Date Provider Condition S tatus Joint Pain, Localized in the Right Shoulder 09/21/2021 Morris Madrid PA-C Active Last Documented On 2 10:31AM ; [facility] Joint Pain in Both Knees 09/16/2021 Elvira frausto PA-C Active Last Documented On 2 1:34PM ; [facility] Plan of Treatment No Plan of [...] By Greg Steele ; [facility] Dicyclomine HCl 10 MG Oral Capsule 11/19/2021 Provid er: Diagnosis: Last Documented On 2 2:59PM By Greg Steele ; [facility] Levocetirizine Dihydrochloride 5 MG Oral Tablet 2021 Provider: Diagnosis: Last Documented On 2 2:59PM By Greg Steele ; [facility] DULoxetine HCl 60 MG Oral Ca psule Delayed Release Particles 11/06/2021 Provider: АНДРЕЙ ESPANA MD Diagnosis: Last Documented On 2 2:59PM By Greg Steele ; [facility] rOPINIRole HCl 1 MG Oral Tablet 10/21/2021 Provider: АНДРЕЙ ESPANA MD Diagnosis: Last Documented On 2 2:59PM By Greg Steele ; [facility] Warfarin Sodium 7.5 MG Oral Tablet 10/14/2021 Provid er: АНДРЕЙ ESPANA MD Diagnosis: Last Documented On 2 2:59PM By Greg Steele ; [facility] Omeprazole 20 MG Oral Capsule Delayed Release 10/15/19 Provider: АНДРЕЙ ESPANA MD Diagnosis: Last Documented On 2 2:59PM By Greg Steele ; [facility] Levocetirizine Dihydrochloride 5 MG Oral Tablet 2021 Provider: Diagnosis: Last Documented On 2 2:59PM By Greg Steele ; [facility] Azelastine HCl 137 MCG/SPRAY Nasal Solution 10/13/2021 Provider: Diagnosis: Last Documented On 2 2:59PM By Greg Steele ; [facility] Oxybutynin Chloride 5 MG Oral Tablet 10/09/2021 Prov ider: Diagnosis: Last Documented On 2 2:59PM By Greg Steele ; [facility] Atorvastatin Calcium 20 MG Oral Tablet 10/09/2021 Pr ovider: Diagnosis: Last Documented On 2 2:59PM By Greg Steele ; [facility] Montelukast Sodium 10 MG Oral Tablet 09/28/2021 Prov ider: Diagnosis: Last Documented On 2 2:59PM By Greg Steele ; [facility] Amitriptyline HCl 50 MG Oral Tablet 09/22/2021 Provi benjy: АНДРЕЙ ESPANA MD Diagnosis: Last Documented On 2 2:59PM By Greg Steele ; [facility] traMADol HCl 50 MG Oral Tablet 09/11/2021 Provider: АНДРЕЙ ESPANA MD Diagnosis: Last Documented On 2 10:21AM By Autumn Bloom ; [facility] Metaxalone 800 MG Oral Tablet 09/11/2021 Provider: Sandra Lenz APRN Diagnosis: Last Documented On 2 10:21AM By Autumn Bloom ; [facility] Gabapentin 300 MG Oral Capsule 09/10/2021 Provider: АНДРЕЙ ESPANA MD Diagnosis: Last Documented On 2 10:21AM By Autumn Bloom ; [facility] amLODIPine Besylate 5 MG Oral Tablet 09/04/2021 Prov ider: Diagnosis: Last Documented On 2 10:21AM By Autmun Bloom ; [facility] Advair Diskus 500-50 MCG/ACT Inhalation Aerosol Powder Breath Activated 08/19/2021 Provider: Diagnosis: Last Documented On 2 10:21AM By Autumn Bloom ; [facility] Medications Administered Includes: Administered Medications from this encounter No Administered Medications Recorded Vital Signs Includes: Vital Signs from this encounter Vital Name 08/31/2022 09:52A Height (in) 65 Weight (lb) 207 Body Mass Index 34.4 Body Surface Area 2 Note: bdf Last Documented: On 08/31/2022 9:52AM ; [facility] Results Includes: Results discussed during this encounter [...] Active Last Documented On 3 9:51AM ; [facility] metal Allergy 09/10/2020 Active Last Documented On 3 9:51AM ; [facility] Latex Allergy 07/01/2015 Active Last Documented On 3 9:51AM ; [facility] Biaxin Allergy 07/01/2015 Active Last Documented On 3 9:51AM ; [facility] Augmentin Allergy Skin Rashes / Er uption of skin, Hives / Urticaria 07/01/2015 Active Last Documented On 3 9:51AM ; [facility] adhesive tape Allergy 03/30/2019 Activ e Last Documented On 3 9:51AM ; [facility] Encounters Encounter Provider Location Date Check-In Time Check-Out Time Diagnosis HOOVER Injection Elvira Yanez PA-C [facility] 09/01/19 23 9:44AM 9:59AM Insurance Includes: Active Insurance Policies Plan Name Member ID Group # Subscriber Relationship Effect mario Dates 1 - Medicare Part B [facility] [id number] Ebonie Blue Self 04/08/19 09 - Unknown 2 - [employer] [id number] Ebonie Blue Self 2 - Unknown Clinical Notes Includes: Clinical Notes from this encounter No Clinical Notes Recorded
--- OUTSIDE RECORDS SUMMARY | 2024-05-17 20:09 | XMS_ITS | Clinical Summary ---
Author Organization [facility] Address [address] [address] Phone Care Team Providers Care Principal Scientist Name Role Phone JOVI JIMENES, АНДРЕЙ Primary Care Provider [phone] Tony JIMENES, Cristiano York Unavailable [phone] Reason for Visit and Chief Complaint [place] Injection Problems Includes: Problems addressed during this encounter and other active Problems All Visits Onset Date Resolved Date Provider Condition S tatus Joint Pain, Localized in the Right Shoulder 09/21/2021 Morris Madrid PA-C Active Last Documented On 2 10:31AM ; [facility], [facility] Joint Pain in Both Knees 09/16/2021 Elvira frausto PA-C Active Last Documented On 2 1:34PM ; [facility] Plan of Treatment No Plan [...] On 2 2:59PM By Greg Steele ; [facility], [facility] Dicyclomine HCl 10 MG Oral Capsule 11/19/2021 Provid er: Diagnosis: Last Documented On 2 2:59PM By Greg Steele ; [facility] Levocetirizine Dihydrochloride 5 MG Oral Tablet 2021 Provider: Diagnosis: Last Documented On 2 2:59PM By Greg Steele ; [facility] DULoxetine HCl 60 MG Oral Ca psule Delayed Release Particles 11/06/2021 Provider: АНДРЕЙ ESPANA MD Diagnosis: Last Documented On 2 2:59PM By Greg Steele ; [facility] rOPINIRole HCl 1 MG Oral Tablet 10/21/2021 Provider: АНДРЕЙ ESPANA MD Diagnosis: Last Documented On 2 2:59PM By Greg Steele ; [facility] Warfarin Sodium 7.5 MG Oral Tablet 10/14/2021 Provid er: АНДРЕЙ ESPANA MD Diagnosis: Last Documented On 2 2:59PM By Greg Steele ; [facility] Omeprazole 20 MG Oral Capsule Delayed Release 10/15/19 Provider: АНДРЕЙ ESPANA MD Diagnosis: Last Documented On 2 2:59PM By Greg Steele ; [facility] Levocetirizine Dihydrochloride 5 MG Oral Tablet 2021 Provider: Diagnosis: Last Documented On 2 2:59PM By Greg Steele ; [facility] Azelastine HCl 137 MCG/SPRAY Nasal Solution 10/13/2021 Provider: Diagnosis: Last Documented On 2 2:59PM By Greg Steele ; [facility] Oxybutynin Chloride 5 MG Oral Tablet 10/09/2021 Prov ider: Diagnosis: Last Documented On 2 2:59PM By Greg Steele ; [facility] Atorvastatin Calcium 20 MG Oral Tablet 10/09/2021 Pr ovider: Diagnosis: Last Documented On 2 2:59PM By Greg Steele ; [facility] Montelukast Sodium 10 MG Oral Tablet 09/28/2021 Prov ider: Diagnosis: Last Documented On 2 2:59PM By Greg Steele ; [facility] Amitriptyline HCl 50 MG Oral Tablet 09/22/2021 Provi benjy: АНДРЕЙ ESPANA MD Diagnosis: Last Documented On 2 2:59PM By Greg Steele ; [facility] traMADol HCl 50 MG Oral Tablet 09/11/2021 Provider: АНДРЕЙ ESPANA MD Diagnosis: Last Documented On 2 10:21AM By Autumn Bloom ; [facility] Metaxalone 800 MG Oral Tablet 09/11/2021 Provider: Sandra Lenz APRN Diagnosis: Last Documented On 2 10:21AM By Autumn Bloom ; [facility] Gabapentin 300 MG Oral Capsule 09/10/2021 Provider: АНДРЕЙ ESPANA MD Diagnosis: Last Documented On 2 10:21AM By Autumn Bloom ; [facility] amLODIPine Besylate 5 MG Oral Tablet 09/04/2021 Prov ider: Diagnosis: Last Documented On 2 10:21AM By Autumn Bloom ; [facility] Advair Diskus 500-50 MCG/ACT Inhalation Aerosol Powder Breath Activated 08/19/2021 Provider: Diagnosis: Last Documented On 2 10:21AM By Autumn Bloom ; [facility] Medications Administered Includes: Administered Medications from [...] ctive Last Documented On 3 9:51AM ; [facility] Omnicef Allergy 03/30/2019 Active Last Documented On 3 9:51AM ; [facility] metal Allergy 09/10/2020 Active Last Documented On 3 9:51AM ; [facility] Latex Allergy 07/01/2015 Active Last Documented On 3 9:51AM ; [facility] Biaxin Allergy 07/01/2015 Active Last Documented On 3 9:51AM ; [facility] Augmentin Allergy Skin Rashes / Er uption of skin, Hives / Urticaria 07/01/2015 Active Last Documented On 3 9:51AM ; [facility] adhesive tape Allergy 03/30/2019 Activ e Last Documented On 3 9:51AM ; [facility] Encounters Encounter Provider Location Date Check-In Time Check-Out Time Diagnosis [place] Injection Elvira Yanez PA-C [facility] 09/15/19 23 9:42AM 10:06AM Insurance Includes: Active Insurance Policies Plan Name Member ID Group # Subscriber Relationship Effect mario Dates 1 - Medicare Part B [facility] [id number] Ebonie Blue Self 04/08/19 09 - Unknown 2 - [employer] [id number] Ebonie Blue Self 2 - Unknown Clinical Notes Includes: Clinical Notes from this encounter No Clinical Notes Recorded
== END 2024-05-14 23:59 | disposition home or self-care (01) ==
LOC: RAD 08:45
PROVIDERS: PCP Nurse Practitioner Family; Visit Provider Internal Medicine Adolescent Medicine
DX: Z12.31 Encounter for screening mammogram for malignant neoplasm of breast (principal); Z78.0 Asymptomatic menopausal state
CPT/HCPCS: 77063; 77067; 77080

== ENCOUNTER 2024-05-16 12:54 | Outpatient (CLI) | payer MEDICARE, OTHER, SELFPAY ==
--- NOTE | 2024-05-16 | CA_ITS ---
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: Lalita Mathews RT(R) Ht: 5 ft 5 in Wt: 213lbs BSA: 2.03 BP: 107/69 mmHg Indications: murmur, COPD, ex smoker, HTN, HLD, DD, abn EKG, migraines, smoker, hx PE, PVD, clotting disorder 2D Dimensions LVEF (Cantor's) 63.40 % F: 54 - 74 LV Volume 84.40 mL F: 46 - 106 LV Volume Index 41.6 mL/m2 F: 29 - 61 LA Volume 23.50 mL LA Volume Index 11.58 mL/m2 (M/F) 16-34 EF AP4 68.00 % EF AP2 58.7 % EF BP 63.4 % GL Strain -19.3 % M-Mode Dimensions RVDd 2.10 cm (0.9-2.6) LA Diam 4.08 cm (1.9-4.0) LVDd 5.18 cm (3.5-5.7) LVDs 3.39 cm (3.5-5.7) IVSd 0.71 cm (0.6-1.1) PWd 0.98 cm (0.6-1.1) EF (Teich) 63.30% FS 34.60% EDV (Teich) 128.40 mL ESV (Teich) 47.10 mL LV Diastology E Decel Time 223 (160-240 msec) E/A Ratio 1.05 Aortic Valve TASHA Index 1.06 cm2/m2 AoV Peak Richie. 203.0 (50-130 cm/s) AO Peak GR. 16.50 mmHg AO Mean GR. 8.20 (<5 mmHg) AO VTI 46.2 (18-25 cm) TASHA (VTI) 2.21 (2.5-4.5 cm2) Mitral Valve MV A Velocity 120.0 (40-130 cm/s) E/A Ratio 1.05 Tricuspid Valve TR P. Velocity 209.00 cm/s RAP Estimate 10.00 mmHg RVSP 27.40 mmHg Left Ventricle The left ventricle is normal size. The left ventricular systolic function is normal. The left ventricular ejection fraction is within the normal range. There is increased LV wall thickness. There is normal LV segmental wall motion. The left ventricular diastolic function is normal. LVEF is 55%. Right Ventricle Right ventricle is mildly to moderately dilated. The right ventricular systolic function is normal. Atria Left atrium is mildly dilated. Right atrium is mildly dilated. There is no Doppler evidence of interatrial shunt. Aortic Valve The aortic valve is mildly thickened. Aortic sclerosis, but no evidence of aortic stenosis. Trace aortic regurgitation. Mitral Valve The mitral valve leaflets are mildly thickened. No evidence of mitral valve stenosis. Mild mitral regurgitation. Tricuspid Valve Tricuspid valve is grossly normal in structure and function. Mild tricuspid regurgitation. RVSP is 20-25 mmHg. Pulmonic Valve The pulmonary valve is normal in structure. Trace pulmonic regurgitation. Great Vessels The aortic root is normal in size. IVC is normal in size and collapses >50% with inspiration. Pericardium There is no pericardial effusion. Other Information Study Quality: Fair Conclusion Normal LV systolic function. Mild to moderate RV dilation with normal RV function. Mild biatrial dilation. Mild MR, mild TR. Electronically signed by : Dia Peguero MD 05/21/2024 00:29:35
--- OUTSIDE RECORDS SUMMARY | 2024-05-17 22:10 | XMS_ITS | Clinical Summary ---
Author Organization [facility] Address [address] [address] Phone Care Team Providers Care Cornice Upholsterer Name Role Phone JOVI JIMENES, АНДРЕЙ Primary Care Provider [phone] Tony JIMENES, Cristiano York Unavailable [phone] Reason for Visit and Chief Complaint [place] Injection Problems Includes: Problems addressed during this encounter and other active Problems All Visits Onset Date Resolved Date Provider Condition S tatus Joint Pain, Localized in the Right Shoulder 09/21/2021 Morris Madrid PA-C Active Last Documented On 2 10:31AM ; [facility], [facility] Joint Pain in Both Knees 09/16/2021 Elvira frausto PA-C Active Last Documented On 2 1:34PM ; [facility] Plan of Treatment No Plan [...] On 2 2:59PM By Greg Steele ; [facility], [facility] Dicyclomine HCl 10 MG Oral Capsule 11/19/2021 Provid er: Diagnosis: Last Documented On 2 2:59PM By Greg Steele ; [facility] Levocetirizine Dihydrochloride 5 MG Oral Tablet 2021 Provider: Diagnosis: Last Documented On 2 2:59PM By Greg Steele ; [facility] DULoxetine HCl 60 MG Oral Ca psule Delayed Release Particles 11/06/2021 Provider: АНДРЕЙ ESPANA MD Diagnosis: Last Documented On 2 2:59PM By Greg Steele ; [facility] rOPINIRole HCl 1 MG Oral Tablet 10/21/2021 Provider: АНДРЕЙ ESPANA MD Diagnosis: Last Documented On 2 2:59PM By Greg Steele ; [facility] Warfarin Sodium 7.5 MG Oral Tablet 10/14/2021 Provid er: АНДРЕЙ ESPANA MD Diagnosis: Last Documented On 2 2:59PM By Greg Steele ; [facility] Omeprazole 20 MG Oral Capsule Delayed Release 10/15/19 Provider: АНДРЕЙ ESPANA MD Diagnosis: Last Documented On 2 2:59PM By Greg Steele ; [facility] Levocetirizine Dihydrochloride 5 MG Oral Tablet 2021 Provider: Diagnosis: Last Documented On 2 2:59PM By Greg Steele ; [facility] Azelastine HCl 137 MCG/SPRAY Nasal Solution 10/13/2021 Provider: Diagnosis: Last Documented On 2 2:59PM By Greg Steele ; [facility] Oxybutynin Chloride 5 MG Oral Tablet 10/09/2021 Prov ider: Diagnosis: Last Documented On 2 2:59PM By Greg Steele ; [facility] Atorvastatin Calcium 20 MG Oral Tablet 10/09/2021 Pr ovider: Diagnosis: Last Documented On 2 2:59PM By Greg Steele ; [facility] Montelukast Sodium 10 MG Oral Tablet 09/28/2021 Prov ider: Diagnosis: Last Documented On 2 2:59PM By Greg Steele ; [facility] Amitriptyline HCl 50 MG Oral Tablet 09/22/2021 Provi benjy: АНДРЕЙ ESPANA MD Diagnosis: Last Documented On 2 2:59PM By Greg Steele ; [facility] traMADol HCl 50 MG Oral Tablet 09/11/2021 Provider: АНДРЕЙ ESPANA MD Diagnosis: Last Documented On 2 10:21AM By Autumn Bloom ; [facility] Metaxalone 800 MG Oral Tablet 09/11/2021 Provider: Sandra Lenz APRN Diagnosis: Last Documented On 2 10:21AM By Autumn Bloom ; [facility] Gabapentin 300 MG Oral Capsule 09/10/2021 Provider: АНДРЕЙ ESPANA MD Diagnosis: Last Documented On 2 10:21AM By Autumn Bloom ; [facility] amLODIPine Besylate 5 MG Oral Tablet 09/04/2021 Prov ider: Diagnosis: Last Documented On 2 10:21AM By Autumn Bloom ; [facility] Advair Diskus 500-50 MCG/ACT Inhalation Aerosol Powder Breath Activated 08/19/2021 Provider: Diagnosis: Last Documented On 2 10:21AM By Autumn Bloom ; [facility] Medications Administered Includes: Administered Medications from this encounter No Administered Medications Recorded Vital Signs Includes: Vital Signs from this encounter Vital Name 08/31/2022 09:52A Height (in) 65 Weight (lb) 207 Body Mass Index 34.4 Body Surface Area 2 Note: bdf Last Documented: On 08/31/2022 9:52AM ; [facility] Results Includes: Results discussed during this [...] mario Dates 1 - Medicare Part B [facility] [id number] Ebonie Blue Self 04/08/19 09 - Unknown 2 - [employer] [id number] Ebonie Blue Self 2 - Unknown Clinical Notes Includes: Clinical Notes from this encounter No Clinical Notes Recorded
--- OUTSIDE RECORDS SUMMARY | 2024-05-17 22:10 | XMS_ITS | Clinical Summary ---
Author Organization [facility] Address [address] [place] [address] Phone Care Team Providers Care Geotechnical Engineer Name Role Phone JOVI JIMENES, АНДРЕЙ Primary Care Provider [phone] Tony JIMENES, Cristiano York Unavailable [phone] Reason for Visit and Chief Complaint [place] Injection Problems Includes: Problems addressed during this encounter and other active Problems All Visits Onset Date Resolved Date Provider Condition S tatus Joint Pain, Localized in the Right Shoulder 09/21/2021 Morris Madrid PA-C Active Last Documented On 2 10:31AM ; [facility] Joint Pain in Both Knees 09/16/2021 Elvira frausto PA-C Active Last Documented On 2 1:34PM ; [facility] Plan of Treatment No Plan of [...] On 2 2:59PM By Greg Steele ; [facility] Dicyclomine HCl 10 MG Oral Capsule 11/19/2021 Provid er: Diagnosis: Last Documented On 2 2:59PM By Greg Steele ; [facility] Levocetirizine Dihydrochloride 5 MG Oral Tablet 2021 Provider: Diagnosis: Last Documented On 2 2:59PM By Greg Steele ; [facility] DULoxetine HCl 60 MG Oral Ca psule Delayed Release Particles 11/06/2021 Provider: АНДРЕЙ ESPANA MD Diagnosis: Last Documented On 2 2:59PM By Greg Steele ; [facility] rOPINIRole HCl 1 MG Oral Tablet 10/21/2021 Provider: АНДРЕЙ ESPANA MD Diagnosis: Last Documented On 2 2:59PM By Greg Steele ; [facility] Warfarin Sodium 7.5 MG Oral Tablet 10/14/2021 Provid er: АНДРЕЙ ESPANA MD Diagnosis: Last Documented On 2 2:59PM By Greg Steele ; [facility] Omeprazole 20 MG Oral Capsule Delayed Release 10/15/19 Provider: АНДРЕЙ ESPANA MD Diagnosis: Last Documented On 2 2:59PM By Greg Steele ; [facility] Levocetirizine Dihydrochloride 5 MG Oral Tablet 2021 Provider: Diagnosis: Last Documented On 2 2:59PM By Greg Steele ; [facility] Azelastine HCl 137 MCG/SPRAY Nasal Solution 10/13/2021 Provider: Diagnosis: Last Documented On 2 2:59PM By Greg Steele ; [facility] Oxybutynin Chloride 5 MG Oral Tablet 10/09/2021 Prov ider: Diagnosis: Last Documented On 2 2:59PM By Greg Steele ; [facility] Atorvastatin Calcium 20 MG Oral Tablet 10/09/2021 Pr ovider: Diagnosis: Last Documented On 2 2:59PM By Grge Steele ; [facility] Montelukast Sodium 10 MG Oral Tablet 09/28/2021 Prov ider: Diagnosis: Last Documented On 2 2:59PM By Greg Steele ; [facility] Amitriptyline HCl 50 MG Oral Tablet 09/22/2021 Provi benjy: АНДРЕЙ ESPANA MD Diagnosis: Last Documented On 2 2:59PM By Greg Steele ; [facility] traMADol HCl 50 MG Oral Tablet 09/11/2021 Provider: АНДРЕЙ ESPANA MD Diagnosis: Last Documented On 2 10:21AM By Autumn Bloom ; [facility] Metaxalone 800 MG Oral Tablet 09/11/2021 Provider: Sandra Lenz APRN Diagnosis: Last Documented On 2 10:21AM By Autumn Bloom ; [facility] Gabapentin 300 MG Oral Capsule 09/10/2021 Provider: АНДРЕЙ ESPANA MD Diagnosis: Last Documented On 2 10:21AM By Autumn Bloom ; [facility] amLODIPine Besylate 5 MG Oral Tablet 09/04/2021 Prov ider: Diagnosis: Last Documented On 2 10:21AM By Autumn Bloom ; [facility] Advair Diskus 500-50 MCG/ACT Inhalation Aerosol Powder Breath Activated 08/19/2021 Provider: Diagnosis: Last Documented On 2 10:21AM By Autumn Bloom ; [facility] Medications Administered Includes: Administered Medications [...] ctive Last Documented On 3 9:51AM ; [facility] Omnicef Allergy 03/30/2019 Active Last Documented On 3 9:51AM ; [facility] metal Allergy 09/10/2020 Active Last Documented On 3 9:51AM ; [facility] Latex Allergy 07/01/2015 Active Last Documented On 3 9:51AM ; [facility] Biaxin Allergy 07/01/2015 Active Last Documented On 3 9:51AM ; [facility] Augmentin Allergy Skin Rashes / Er uption of skin, Hives / Urticaria 07/01/2015 Active Last Documented On 3 9:51AM ; [facility] adhesive tape Allergy 03/30/2019 Activ e Last Documented On 3 9:51AM ; [facility] Encounters Encounter Provider Location Date Check-In Time Check-Out Time Diagnosis [place] Injection Elvira Yanez PA-C [facility] 08/25/19 23 9:37AM 10:06AM Insurance Includes: Active Insurance Policies Plan Name Member ID Group # Subscriber Relationship Effect mario Dates 1 - Medicare Part B [facility] [id number] Ebonie Blue Self 04/08/19 09 - Unknown 2 - [employer] [id number] Ebonie Blue Self 2 - Unknown Clinical Notes Includes: Clinical Notes from this encounter No Clinical Notes Recorded
--- OUTSIDE RECORDS SUMMARY | 2024-05-17 22:10 | XMS_ITS | Clinical Summary ---
Author Organization [facility] Address [address] [place] [address] Phone Care Team Providers Care Trackman Name Role Phone JOVI JIMENES, АНДРЕЙ Primary Care Provider [phone] Tony JIMENES, Cristiano York Unavailable [phone] Reason for Visit and Chief Complaint [place] Injection Problems Includes: Problems addressed during this encounter and other active Problems All Visits Onset Date Resolved Date Provider Condition S tatus Joint Pain, Localized in the Right Shoulder 09/21/2021 Morris Madrid PA-C Active Last Documented On 2 10:31AM ; [facility], [facility] Joint Pain in Both Knees 09/16/2021 Elvira frausto PA-C Active Last Documented On 2 1:34PM ; [facility] Plan of Treatment No Plan of [...] On 2 2:59PM By Greg Steele ; [facility], [facility] Dicyclomine HCl 10 MG Oral Capsule 11/19/2021 Provid er: Diagnosis: Last Documented On 2 2:59PM By Greg Steele ; [facility] Levocetirizine Dihydrochloride 5 MG Oral Tablet 2021 Provider: Diagnosis: Last Documented On 2 2:59PM By Greg Steele ; [facility] DULoxetine HCl 60 MG Oral Ca psule Delayed Release Particles 11/06/2021 Provider: АНДРЕЙ ESPANA MD Diagnosis: Last Documented On 2 2:59PM By Greg Steele ; [facility] rOPINIRole HCl 1 MG Oral Tablet 10/21/2021 Provider: АНДРЕЙ ESPANA MD Diagnosis: Last Documented On 2 2:59PM By Greg Steele ; [facility] Warfarin Sodium 7.5 MG Oral Tablet 10/14/2021 Provid er: АНДРЕЙ ESPANA MD Diagnosis: Last Documented On 2 2:59PM By Greg Steele ; [facility] Omeprazole 20 MG Oral Capsule Delayed Release 10/15/19 Provider: АНДРЕЙ ESPANA MD Diagnosis: Last Documented On 2 2:59PM By Greg Steele ; [facility] Levocetirizine Dihydrochloride 5 MG Oral Tablet 2021 Provider: Diagnosis: Last Documented On 2 2:59PM By Greg Steele ; [facility] Azelastine HCl 137 MCG/SPRAY Nasal Solution 10/13/2021 Provider: Diagnosis: Last Documented On 2 2:59PM By Greg Steele ; [facility] Oxybutynin Chloride 5 MG Oral Tablet 10/09/2021 Prov ider: Diagnosis: Last Documented On 2 2:59PM By Greg Steele ; [facility] Atorvastatin Calcium 20 MG Oral Tablet 10/09/2021 Pr ovider: Diagnosis: Last Documented On 2 2:59PM By Greg Steele ; [facility] Montelukast Sodium 10 MG Oral Tablet 09/28/2021 Prov ider: Diagnosis: Last Documented On 2 2:59PM By Greg Steele ; [facility] Amitriptyline HCl 50 MG Oral Tablet 09/22/2021 Provi benjy: АНДРЕЙ ESPANA MD Diagnosis: Last Documented On 2 2:59PM By Greg Steele ; [facility] traMADol HCl 50 MG Oral Tablet 09/11/2021 Provider: АНДРЕЙ ESPANA MD Diagnosis: Last Documented On 2 10:21AM By Autumn Bloom ; [facility] Metaxalone 800 MG Oral Tablet 09/11/2021 Provider: Sandra Lenz APRN Diagnosis: Last Documented On 2 10:21AM By Autumn Bloom ; [facility] Gabapentin 300 MG Oral Capsule 09/10/2021 Provider: АНДРЕЙ ESPANA MD Diagnosis: Last Documented On 2 10:21AM By Autumn Bloom ; [facility] amLODIPine Besylate 5 MG Oral Tablet 09/04/2021 Prov ider: Diagnosis: Last Documented On 2 10:21AM By Autumn Bloom ; [facility] Advair Diskus 500-50 MCG/ACT Inhalation Aerosol Powder Breath Activated 08/19/2021 Provider: Diagnosis: Last Documented On 2 10:21AM By Autumn Bloom ; [facility] Medications Administered Includes: Administered Medications from this [...] ctive Last Documented On 3 9:51AM ; [facility] Omnicef Allergy 03/30/2019 Active Last Documented On 3 9:51AM ; [facility] metal Allergy 09/10/2020 Active Last Documented On 3 9:51AM ; [facility] Latex Allergy 07/01/2015 Active Last Documented On 3 9:51AM ; [facility] Biaxin Allergy 07/01/2015 Active Last Documented On 3 9:51AM ; [facility] Augmentin Allergy Skin Rashes / Er uption of skin, Hives / Urticaria 07/01/2015 Active Last Documented On 3 9:51AM ; [facility] adhesive tape Allergy 03/30/2019 Activ e Last Documented On 3 9:51AM ; [facility] Encounters Encounter Provider Location Date Check-In Time Check-Out Time Diagnosis [place] Injection Elvira Yanez PA-C [facility] 09/08/19 23 10:13AM 10:37AM Insurance Includes: Active Insurance Policies Plan Name Member ID Group # Subscriber Relationship Effect mario Dates 1 - Medicare Part B [facility] [id number] Ebonie Blue Self 04/08/19 09 - Unknown 2 - [employer] [id number] Ebonie Blue Self 2 - Unknown Clinical Notes Includes: Clinical Notes from this encounter No Clinical Notes Recorded
--- OUTSIDE RECORDS SUMMARY | 2024-05-17 22:10 | XMS_ITS | Clinical Summary ---
Author Organization [facility] Address [address] [address] Phone Care Team Providers Care Software Installer Name Role Phone АНДРЕЙ ESPANA MD Primary Care Provider [phone] Tony JIMENES, Cristiano [place] Unavailable [phone] [...] Documented On 2 10:31AM ; [facility] Joint Pain in Both Knees 09/16/2021 Elvira frausto PA-C Active Last Documented On 2 1:34PM ; [facility] Plan of Treatment SURGICAL PLAN: I reviewed [...] - Last Documented On 01/15/2022 9:12AM ; [facility] DO YOU SEE CARDIOLOGY? YES, PATIENT STATES THAT THEY ARE IN [place] DO YOU SEE A NURSE PRACTITIONER PER DIEM? NO ARE YOU A DIABETIC? NO IF [...] 01/15/2022 9:12AM ; [facility] Pending Tests Order Diagnosis Results Due Ordering Cara gomez Radiology - MRI MRI Shoulder 10/07/21 Rock Toribio MD Last Documented On 2 11:09AM ; [facility] Instructions to patient Intervention and counseling on cessation of tobacco use Last Documented On 2 9:05AM ; [facility] Lose weight Last Documented On 2 9:05AM ; [facility] Assessments Includes: Assessments from this encounter Findings Right shoulder high grade partial thickness rotator cuff tear, with effusion - Last Documented On 01/15/2022 9:12AM ; [facility] Instructions Includes: Instructions from this encounter Instructions to patient Intervention and counseling on cessation of tobacco use Last Documented On 2 9:05AM ; [facility], [facility] Lose weight Last Documented On 2 9:05AM ; [facility] Medical Equipment - Implanted Devices Includes: Current Devices No Medical Equipment Recorded Medications Includes: Medications discussed during this encounter and other current Medications Current Medications (continue as prescribed) rOPINIRole HCl 1 MG Oral Tablet 11/19/2021 Provider: АНДРЕЙ ESPANA MD Diagnosis: Last Documented On 2 2:59PM By Greg Steele ; [facility] Dicyclomine HCl 10 MG Oral Capsule 11/19/2021 Provid er: Diagnosis: Last Documented On 2 2:59PM By Greg Steele ; [facility] Levocetirizine Dihydrochloride 5 MG Oral Tablet 2021 Provider: Diagnosis: Last Documented On 2 2:59PM By Greg Steele ; [facility] DULoxetine HCl 60 MG Oral Ca psule Delayed Release Particles 11/06/2021 Provider: АНДРЕЙ ESPANA MD Diagnosis: Last Documented On 2 2:59PM By Greg Steele ; [facility] rOPINIRole HCl 1 MG Oral Tablet 10/21/2021 Provider: АНДРЕЙ ESPANA MD Diagnosis: Last Documented On 2 2:59PM By Greg Steele ; [facility] Warfarin Sodium 7.5 MG Oral Tablet 10/14/2021 Provid er: АНДРЕЙ ESPANA MD Diagnosis: Last Documented On 2 2:59PM By Greg Steele ; [facility] Omeprazole 20 MG Oral Capsule Delayed Release 10/15/19 22 Provider: АНДРЕЙ ESPANA MD Diagnosis: Last Documented On 2 2:59PM By Greg Steele ; [facility] Levocetirizine Dihydrochloride 5 MG Oral Tablet 2021 Provider: Diagnosis: Last Documented On 2 2:59PM By Greg Steele ; [facility] Azelastine HCl 137 MCG/SPRAY Nasal Solution 10/13/2021 [...] [facility] traMADol HCl 50 MG Oral Tablet 09/11/2021 Provider: АНДРЕЙ ESPANA MD Diagnosis: Last Documented On 2 10:21AM By Autumn Bloom ; [facility] Metaxalone 800 MG Oral Tablet 09/11/2021 Provider: Sandra Lenz APRN Diagnosis: Last Documented On 10:21AM By Autumn Bloom ; [facility], [facility] Gabapentin 300 MG Oral Capsule 09/10/2021 Provider: АНДРЕЙ ESPANA MD Diagnosis: Last Documented On 2 10:21AM By Autumn Bloom ; [facility] amLODIPine Besylate 5 MG Oral Tablet 09/04/2021 Prov ider: Diagnosis: Last Documented On 2 10:21AM By Autumn Bloom ; [facility] Advair Diskus 500-50 MCG/ACT Inhalation Aerosol Powder Breath Activated 08/19/2021 Provider: Diagnosis: Last Documented On 10:21AM By Autumn Bloom ; [facility] Past Medications on file Amitriptyline HCl 25 MG Oral Tablet 08/26/2021 - 09/25/2021 Provider: АНДРЕЙ Asencio Diagnosis: Last Documented On 2 12:46PM By Lux Tabares ; [facility] Azelastine HCl 0.1% Nasal Solution 08/26/2021 - 2021 Provider: Diagnosis: Last Documented On 2 12:47PM By Lux Tabares ; [facility], [facility] Fluticasone Furoate 50 MCG/A CT Inhalation Aerosol Powder Breath Activated 08/26/2021 - 09/25/2021 Provider: АНДРЕЙ Asencio Diagnosis: Last Documented On 2 12:47PM By Lux Tabares ; [facility] Levocetirizine Dihydrochloride 5 MG Oral Tablet 08/26/2021 - 09/25/2021 Provider: Diagnosis: Last Documented On 12:47PM By Lux Tabares ; [facility], [facility] Warfarin Sodium 5 MG Oral Tablet 08/26/2021 - 09/24/19 Provider: АНДРЕЙ ESPANA MD Diagnosis: Last Documented On 12:47PM By Lux Tabares ; [facility] rOPINIRole HCl 0.25 MG Oral Tablet 08/26/2021 - 2021 Provider: Diagnosis: Last Documented On 12:46PM By Lux Tabares ; [facility], [facility] Oxybutynin Chloride 5 MG Oral Tablet 08/26/2021 - 09/07 Provider: Diagnosis: Last Documented On 2 12:46PM By Lux Tabares ; [facility] Omeprazole 20 MG Oral Ta blet Delayed Release Disintegrating 08/26/2021 - 09/25/2021 Provider: LILIA ESPANA MD Diagnosis: Last Documented On 2 12:46PM By Lux Tabares ; [facility], [facility] Montelukast Sodium 10 MG Ora l Tablet 08/26/2021 - 09/25/2021 Provider: АНДРЕЙ Asencio Diagnosis: Last Documented On 2 12:46PM By Lux Tabares ; [facility], [facility] DULoxetine HCl 60 MG Oral Ca psule Delayed Release Particles 08/26/2021 - 09/25/2021 Provider: АНДРЕЙ MENDOZA MD Diagnosis: Last Documented On 2 12:46PM By Lux Tabares ; [facility], [facility] Medications Administered Includes: Administered Medications from this encounter No Administered Medications Recorded Vital Signs Includes: Vital Signs from this encounter Vital Name 12/28/2021 09:13A Blood Pressure Sitting (mmHg) 139/84 Pulse Rate-Sitting (bpm) 87 Height (in) 65 Weight (lb) 201 Body Mass Index (kg/m2) 33.4 Body Surface Area (m2) 2.0 Note: cb Last Documented: On 12/28/2021 9:13AM ; [facility] Results Includes: Results discussed during this encounter [...] right shoulder. She previously saw my NGUYỄN Holguin and was sent for an aspiration of her shoulder. She is here to go over the results of the aspiration. Social History Description Last Updated No recent change in diet 10/09/2021 Last Documented On 2 9:05AM ; [facility] Not a current smoker. 10/09/2021 Last Documented On 2 9:05AM ; [facility] Not a smoker 09/21/2021 Last Documented On 2 9:05AM ; [facility] Non-smoker 09/16/2021 Last Documented On 2 9:05AM ; [facility] Former smoker 08/26/2021 Last Documented On 2 9:05AM ; [facility] Has high school diploma 08/26/2021 Last Documented On 2 9:05AM ; [facility] Never drank alcohol 08/26/2021 Last Documented On 2 9:05AM ; [facility] Never used drugs 08/26/2021 Last Documented On 2 9:05AM ; [facility], [facility] Exercising regularly 07/27/2021 Last Documented On 2 9:05AM ; [facility] No recent change in diet fats ~ 07/28/19 Last Documented On 2 9:05AM ; [facility] Not a current smoker. 07/27/2021 Last Documented On 2 9:05AM ; [facility] Not using alcohol 07/27/2021 Last Documented On 2 9:05AM ; [facility], [facility] Not using drugs 07/27/2021 Last Documented On 2 9:05AM ; [facility] Smoking status : Former smoker 0 Last Documented On 2 9:05AM ; [facility], [facility] Caffeine use daily ~ 03/30/2019 Last Documented On 2 9:05AM ; [facility] Tobacco use 04/03/2015 Last Documented On 2 9:05AM ; [facility] Current smoker 04/03/2015 Last Documented On 2 9:05AM ; [facility] Procedures and Surgical History Includes: Procedures from this encounter Procedures Code Diagnosis Performing Provider Service L ocation Service Date intervention and counseling on cessation of tobacco use 4000F Last Documented On 2 9:05AM ; [facility] use of tobacco assessment performed 1000F Last Documented On 2 9:05AM ; [facility] patient not screened for future fall risk 3288F Last Documented On 2 9:05AM ; [facility] patient screened for future fall risk: documentation of any fall with injury in past year 1100F Last Documented On 2 9:05AM ; [facility] follow-up visit in one month with PCP fo r elevated BP Last Documented On 2 9:05AM ; [facility] follow-up visit in one month Last Documented On 2 9:14AM ; [facility] referral to physician Last Documented On 2 9:05AM ; [facility] Surgical History Last Updated History of appendectomy 04/03/2015 Last Documented On 2 9:05AM ; [facility] History of back surgery 04/03/2015 Last Documented On 2 9:05AM ; [facility] History of hysterectomy 04/03/2015 Last Documented On 2 9:05AM ; [facility] Medical History Includes: Medical History addressed during this encounter Description Last Updated Anemia 09/10/2020 Last Documented On 2 9:05AM ; [facility] Appendectomy 09/10/2020 Last Documented On 2 9:05AM ; [facility] Arthritis 09/10/2020 Last Documented On 2 9:05AM ; [facility] Back surgery 09/10/2020 Last Documented On 2 9:05AM ; [facility] Heartburn / Acid Reflux 09/10/2020 Last Documented On 2 9:05AM ; [facility] History of asthma 09/10/2020 Last Documented On 2 9:05AM ; [facility] History of Blood Clots 09/10/2020 Last Documented On 2 9:05AM ; [facility] History of Emphysema 09/10/2020 Last Documented On 2 9:05AM ; [facility] History of Gallbladder 09/10/2020 Last Documented On 2 9:05AM ; [facility] History of osteoporosis 09/10/2020 Last Documented On 2 9:05AM ; [facility] Hypertension 09/10/2020 Last Documented On 2 9:05AM ; [facility] Hysterectomy 09/10/2020 Last Documented On 2 9:05AM ; [facility] Recent immunization for flu 2019 021 Last Documented On 2 9:05AM ; [facility] Recent immunization for pneumococcal pne umonia 201909/10/2020 Last Documented On 2 9:05AM ; [facility] Carpal Tunnel/ Sinus ~Ovary Removed ~Removal of Scar Tissue- Abdominal ~Anemia ~Blood Clots ~High Cholesteral ~sleep apena ~Acid Reflux ~Blood Transfusion 03/30/2019 Last Documented On 2 9:05AM ; [facility] Liver disease 03/30/2019 Last Documented On 2 9:05AM ; [facility] A recent injection orthovisc 03/30/2019 Last Documented On 2 9:05AM ; [facility] Arthritic joint problems 04/03/2015 Last Documented On 2 9:05AM ; [facility] Gallbladder disease 04/03/2015 Last Documented On 2 9:05AM ; [facility] History of depression 04/03/2015 Last Documented On 2 9:05AM ; [facility] History of gastric ulcer 04/03/2015 Last Documented On 2 9:05AM ; [facility] Intermittent hypertension 04/03/2015 Last Documented On 2 9:05AM ; [facility] Family History Includes: Family History addressed during this encounter Description Last Updated Diabetes mellitus 09/10/2020 Last Documented On 2 9:05AM ; [facility] Family history of osteoporosis 1 Last Documented On 2 9:05AM ; [facility] Stroke / Seizures 09/10/2020 Last Documented On 2 9:05AM ; [facility] Stroke- Father/brother 03/30/2019 Last Documented On 2 9:05AM ; [facility] Family history of cancer mother 03/30/19 20 Last Documented On 2 9:05AM ; [facility] Family history of diabetes mellitus moth er/brother/daughter ~ 03/30/2019 Last Documented On 2 9:05AM ; [facility] Family history of heart disease father 0 03/30/2019 Last Documented On 2 9:05AM ; [facility] Family history of hypertension 0 Last Documented On 2 9:05AM ; [facility] Family history of thromboembolic disease 03/30/2019 Last Documented On 2 9:05AM ; [facility] Maternal history of diabetes mellitus Br other 04/03/2015 Last Documented On 2 9:05AM ; [facility] Maternal history of family history of ca ncer 04/03/2015 Last Documented On 2 9:05AM ; [facility] Maternal history of thromboembolic disea se 04/03/2015 Last Documented On 2 9:05AM ; [facility] Paternal history of family history of he art disease 04/03/2015 Last Documented On 2 9:05AM ; [facility] Paternal history of hypertension Brother 04/03/2015 Last Documented On 2 9:05AM ; [facility] Review of Systems Includes: Review of Systems [...] ctive Last Documented On 3 9:51AM ; [facility] Omnicef Allergy 03/30/2019 Active Last Documented On 3 9:51AM ; [facility] metal Allergy 09/10/2020 Active Last Documented On 3 9:51AM ; [facility] Latex Allergy 07/01/2015 Active Last Documented On 3 9:51AM ; [facility] Biaxin Allergy 07/01/2015 Active Last Documented On 3 9:51AM ; [facility] Augmentin Allergy Skin Rashes / Er uption of skin, Hives / Urticaria 07/01/2015 Active Last Documented On 3 9:51AM ; [facility] adhesive tape Allergy 03/30/2019 Activ e Last Documented On 3 9:51AM ; [facility] Encounters Encounter Provider Location Date Check-In Time Check- Out Time Diagnosis Follow Up Rock Toribio MD [facility] 2 9:07AM 10:06AM Insurance Includes: Active Insurance Policies Plan Name Member ID Group # Subscriber Relationship Effect mario Dates 1 - Medicare Part B [facility] [id number] Ebonie Martell Su Self 04/08/19 09 - Unknown 2 - [employer] [id number] Ebonie Martell Su Self 2 - Unknown Clinical Notes Includes: Clinical Notes from this encounter No Clinical Notes Recorded
--- OUTSIDE RECORDS SUMMARY | 2024-05-17 22:10 | XMS_ITS | Clinical Summary ---
Author Organization [facility] Address [address] [address] Phone Care Team Providers Care Raiser Helper Name Role Phone JOVI JIMENES, АНДРЕЙ Primary Care Provider [phone] Tony JIMENES, Cristiano [place] Unavailable [phone] Reason for Visit and Chief Complaint [place] Injection Problems Includes: Problems addressed during this encounter and other active Problems All Visits Onset Date Resolved Date Provider Condition S tatus Joint Pain, Localized in the Right Shoulder 09/21/2021 Morris Madrid PA-C Active Last Documented On 2 10:31AM ; [facility], [facility] Joint Pain in Both Knees 09/16/2021 Elvira frausto PA-C Active Last Documented On 2 1:34PM ; [facility] Plan of Treatment No Plan [...] On 2 2:59PM By Greg Steele ; [facility] Dicyclomine HCl 10 MG Oral Capsule 11/19/2021 Provid er: Diagnosis: Last Documented On 2 2:59PM By Greg Steele ; [facility] Levocetirizine Dihydrochloride 5 MG Oral Tablet 2021 Provider: Diagnosis: Last Documented On 2 2:59PM By Greg Steele ; [facility] DULoxetine HCl 60 MG Oral Ca psule Delayed Release Particles 11/06/2021 Provider: АНДРЕЙ ESPANA MD Diagnosis: Last Documented On 2 2:59PM By Greg Steele ; [facility] rOPINIRole HCl 1 MG Oral Tablet 10/21/2021 Provider: АНДРЕЙ ESPANA MD Diagnosis: Last Documented On 2 2:59PM By Greg Steele ; [facility] Warfarin Sodium 7.5 MG Oral Tablet 10/14/2021 Provid er: АНДРЕЙ ESPANA MD Diagnosis: Last Documented On 2 2:59PM By Greg Steele ; [facility] Omeprazole 20 MG Oral Capsule Delayed Release 10/15/19 Provider: АНДРЕЙ ESPANA MD Diagnosis: Last Documented On 2 2:59PM By Greg Steele ; [facility] Levocetirizine Dihydrochloride 5 MG Oral Tablet 2021 Provider: Diagnosis: Last Documented On 2 2:59PM By Greg Steele ; [facility] Azelastine HCl 137 MCG/SPRAY Nasal Solution 10/13/2021 Provider: Diagnosis: Last Documented On 2 2:59PM By Greg Steele ; [facility] Oxybutynin Chloride 5 MG Oral Tablet 10/09/2021 Prov ider: Diagnosis: Last Documented On 2 2:59PM By Greg Steele ; [facility] Atorvastatin Calcium 20 MG Oral Tablet 10/09/2021 Pr ovider: Diagnosis: Last Documented On 2 2:59PM By Greg Steele ; [facility] Montelukast Sodium 10 MG Oral Tablet 09/28/2021 Prov ider: Diagnosis: Last Documented On 2 2:59PM By Greg Steele ; [facility] Amitriptyline HCl 50 MG Oral Tablet 09/22/2021 Provi benjy: АНДРЕЙ ESPANA MD Diagnosis: Last Documented On 2 2:59PM By Greg Steele ; [facility] traMADol HCl 50 MG Oral Tablet 09/11/2021 Provider: АНДРЕЙ ESPANA MD Diagnosis: Last Documented On 2 10:21AM By Autumn Bloom ; [facility] Metaxalone 800 MG Oral Tablet 09/11/2021 Provider: Sandra Lenz APRN Diagnosis: Last Documented On 2 10:21AM By Autumn Bloom ; [facility] Gabapentin 300 MG Oral Capsule 09/10/2021 Provider: АНДРЕЙ ESPANA MD Diagnosis: Last Documented On 2 10:21AM By Autumn Bloom ; [facility] amLODIPine Besylate 5 MG Oral Tablet 09/04/2021 Prov ider: Diagnosis: Last Documented On 2 10:21AM By Autumn Bloom ; [facility] Advair Diskus 500-50 MCG/ACT Inhalation Aerosol Powder Breath Activated 08/19/2021 Provider: Diagnosis: Last Documented On 2 10:21AM By Autumn Bloom ; [facility] Medications Administered Includes: Administered Medications from [...] ctive Last Documented On 3 9:51AM ; [facility] Omnicef Allergy 03/30/2019 Active Last Documented On 3 9:51AM ; [facility] metal Allergy 09/10/2020 Active Last Documented On 3 9:51AM ; [facility] Latex Allergy 07/01/2015 Active Last Documented On 3 9:51AM ; [facility] Biaxin Allergy 07/01/2015 Active Last Documented On 3 9:51AM ; [facility] Augmentin Allergy Skin Rashes / Er uption of skin, Hives / Urticaria 07/01/2015 Active Last Documented On 3 9:51AM ; [facility] adhesive tape Allergy 03/30/2019 Activ e Last Documented On 3 9:51AM ; [facility] Encounters Encounter Provider Location Date Check-In Time Check-Out Time Diagnosis [place] Injection Elvira Yanez PA-C [facility] 09/15/19 23 9:42AM 10:06AM Insurance Includes: Active Insurance Policies Plan Name Member ID Group # Subscriber Relationship Effect mario Dates 1 - Medicare Part B [facility] [id number] Ebonie Blue Self 04/08/19 09 - Unknown 2 - [employer] [id number] Ebonie Blue Self 2 - Unknown Clinical Notes Includes: Clinical Notes from this encounter No Clinical Notes Recorded
--- OUTSIDE RECORDS SUMMARY | 2024-05-17 22:10 | XMS_ITS ---
Care Plan - [facility], [facility] Created on: May 17, 2024 Ebonie Blue : 1955 Sex: Female Author Organization [facility] Address [address] [address] Phone Care Team Providers Care Lunchroom Mother Name Role Phone JOVI JIMENES, АНДРЕЙ Primary Care Provider [phone] Tony JIMENES, Cristiano [place] [facility] [phone]
--- OUTSIDE RECORDS SUMMARY | 2024-05-17 22:10 | XMS_ITS ---
Author Organization [facility], [facility] Address [address] [place] [address] Phone Care Team Providers Care Final Expense Agent Name Role Phone АНДРЕЙ ESPANA MD Primary Care Provider [phone] Tony JIMENES, Cristiano [place] Unavailable [phone] [...] Active Last Documented On 2 10:31AM ; [facility] Joint Pain in Both Knees 09/16/2021 Elvira frausto PA-C Active Last Documented On 2 1:34PM ; [facility] Joint Pain, Localized in the Right Shoulder 07/27/2021 08/26/2021 Morris Madrid PA-C Resolved Last Documented On 2 12:45PM ; [facility] Joint Pain, Localized in the Knee 04/03/2015 08/26/2021 Rosalva Yanez PA-C Resolved Last Documented On 2 12:45PM ; [facility] Plan of Treatment Pending Tests Order Diagnosis Results Due Ordering P rovider Radiology - MRI MRI Shoulder 10/07/21 Rock Toribio MD Last Documented On 2 11:09AM ; [facility] Instructions to patient Intervention [...] weight Last Documented On 2 10:20AM ; [facility] No intervention and counseli [...] ssation Last Documented On 7 8:49AM ; [facility] Health seminar on smoking ce ssation Last Documented On 7 9:11AM ; [facility] Health seminar on smoking ce ssation Last Documented On 7 9:48AM ; [facility] Health seminar on smoking ce ssation Last Documented On 7 9:11AM ; [facility] Health seminar on smoking ce ssation Last Documented On 6 10:44AM ; [facility] Health seminar on smoking ce ssation Last Documented On 6 9:40AM ; [facility] Health seminar on smoking ce ssation Last Documented On 6 8:53AM ; [facility] Health seminar on smoking ce ssation Last Documented On 6 9:03AM ; [facility] Health seminar on smoking ce ssation Last Documented On 6 9:17AM ; [facility], [facility] Health seminar on smoking ce ssation Last Documented On 6 10:24AM ; [facility], [facility] Health seminar on smoking ce ssation Last Documented On 6 10:32AM ; [facility], [facility] Medical Equipment - Implanted Devices Includes: Current and historical Devices No Medical Equipment Recorded Medications Includes: Current and historical Medications Current Medications (continue as prescribed) rOPINIRole HCl 1 MG Oral Tablet 11/19/2021 Provider: АНДРЕЙ ESPANA MD Diagnosis: Last Documented On 2 2:59PM By Greg Steele ; [facility], [facility] Dicyclomine HCl 10 MG Oral Capsule 11/19/2021 Provid er: Diagnosis: Last Documented On 2 2:59PM By Greg Steele ; [facility] Levocetirizine Dihydrochloride 5 MG Oral Tablet 2021 Provider: Diagnosis: Last Documented On 2 2:59PM By Greg Steele ; [facility] DULoxetine HCl 60 MG Oral Ca psule Delayed Release Particles 11/06/2021 Provider: АНДРЕЙ ESPANA MD Diagnosis: Last Documented On 2 2:59PM By Greg Steele ; [facility] rOPINIRole HCl 1 MG Oral Tablet 10/21/2021 Provider: АНДРЕЙ ESPANA MD Diagnosis: Last Documented On 2 2:59PM By Greg Steele ; [facility] Warfarin Sodium 7.5 MG Oral Tablet 10/14/2021 Provid er: АНДРЕЙ ESPANA MD Diagnosis: Last Documented On 2 2:59PM By Greg Steele ; [facility] Omeprazole 20 MG Oral Capsule Delayed Release 10/15/19 Provider: АНДРЕЙ ESPANA MD Diagnosis: Last Documented On 2 2:59PM By Greg Steele ; [facility] Levocetirizine Dihydrochloride 5 MG Oral Tablet 2021 Provider: Diagnosis: Last Documented On 2 2:59PM By Greg Steele ; [facility] Azelastine HCl 137 MCG/SPRAY Nasal Solution 10/13/2021 Provider: Diagnosis: Last Documented On 2 2:59PM By Greg Steele ; [facility] Oxybutynin Chloride 5 MG Oral Tablet 10/09/2021 Prov ider: Diagnosis: Last Documented On 2 2:59PM By Greg Steele ; [facility] Atorvastatin Calcium 20 MG Oral Tablet 10/09/2021 Pr ovider: Diagnosis: Last Documented On 2 2:59PM By Greg Steele ; [facility] Montelukast Sodium 10 MG Oral Tablet 09/28/2021 Prov ider: Diagnosis: Last Documented On 2 2:59PM By Greg Steele ; [facility] Amitriptyline HCl 50 MG Oral Tablet 09/22/2021 Provi benjy: АНДРЕЙ ESPANA MD Diagnosis: Last Documented On 2 2:59PM By Greg Steele ; [facility] traMADol HCl 50 MG Oral Tablet 09/11/2021 Provider: АНДРЕЙ ESPANA MD Diagnosis: Last Documented On 10:21AM By Autumn Bloom ; [facility] Metaxalone 800 MG Oral Tablet 09/11/2021 Provider: Sandra Lenz APRN Diagnosis: Last Documented On 10:21AM By Autumn Bloom ; [facility] Gabapentin 300 MG Oral Capsule 09/10/2021 Provider: АНДРЕЙ ESPANA MD Diagnosis: Last Documented On 10:21AM By Autumn Bloom ; [facility], [facility] amLODIPine Besylate 5 MG Oral Tablet 09/04/2021 Prov ider: Diagnosis: Last Documented On 10:21AM By Autumn Bloom ; [facility], [facility] Advair Diskus 500-50 MCG/ACT Inhalation Aerosol Powder Breath Activated 08/19/2021 Provider: Diagnosis: Last Documented On 10:21AM By Autumn Bloom ; [facility], [facility] Past Medications on file Amitriptyline HCl 25 MG Oral Tablet 08/26/2021 - 09/25/2021 Provider: АНДРЕЙ Asencio Diagnosis: Last Documented On 12:46PM By Lux Tabares ; [facility], [facility] Azelastine HCl 0.1% Nasal Solution 08/26/2021 - 2021 Provider: Diagnosis: Last Documented On 12:47PM By Lux Tabares ; [facility], [facility] traMADol HCl 50 MG Oral Tablet 08/26/2021 - 09/21/2021 Provider: АНДРЕЙ ESPANA MD Diagnosis: Last Documented On 10:22AM By Autumn Bloom ; [facility], [facility] Fluticasone Furoate 50 MCG/A CT Inhalation Aerosol Powder Breath Activated 08/26/2021 - 09/25/2021 Provider: АНДРЕЙ Asencio Diagnosis: Last Documented On 12:47PM By Lux Tabares ; [facility], [facility] Levocetirizine Dihydrochloride 5 MG Oral Tablet 08/26/2021 - 09/25/2021 Provider: Diagnosis: Last Documented On 2 12:47PM By Lux Tabares ; [facility], [facility] Warfarin Sodium 5 MG Oral Tablet 08/26/2021 - 09/24/19 Provider: АНДРЕЙ ESPANA MD Diagnosis: Last Documented On 2 12:47PM By Lux Tabares ; [facility], [facility] rOPINIRole HCl 0.25 MG Oral Tablet 08/26/2021 - 2021 Provider: Diagnosis: Last Documented On 2 12:46PM By Lux Tabares ; [facility], [facility] Oxybutynin Chloride 5 MG Oral Tablet 08/26/2021 - 09/07 Provider: Diagnosis: Last Documented On 2 12:46PM By Lux Tabares ; [facility], [facility] Omeprazole 20 MG Oral Ta blet Delayed Release Disintegrating 08/26/2021 - 09/25/2021 Provider: LILIA ESPANA MD Diagnosis: Last Documented On 2 12:46PM By Lux Tabares ; [facility], [facility] Montelukast Sodium 10 MG Ora l Tablet 08/26/2021 - 09/25/2021 Provider: АНДРЕЙ Asencio Diagnosis: Last Documented On 2 12:46PM By Lux Tabares ; [facility], [facility] DULoxetine HCl 60 MG Oral Ca psule Delayed Release Particles 08/26/2021 - 09/25/2021 Provider: АНДРЕЙ MENDOZA MD Diagnosis: Last Documented On 2 12:46PM By Lux Tabares ; [facility], [facility] Amitriptyline HCl 25 MG Oral Tablet 03/19/2019 - 08/26/2021 Provider: АНДРЕЙ Asencio Diagnosis: Last Documented On 2 12:46PM By Lux Tabares ; [facility], [facility] DULoxetine HCl 60 MG Oral Ca psule Delayed Release Particles 03/19/2019 - 08/26/2021 Provider: АНДРЕЙ MENDOZA MD Diagnosis: Last Documented On 2 12:46PM By Lux Tabares ; [facility], [facility] Montelukast Sodium 10 MG Ora l Tablet 03/18/2019 - 08/26/2021 Provider: АНДРЕЙ Asencio Diagnosis: Last Documented On 2 12:46PM By Lux Tabares ; [facility], [facility] Omeprazole 20 MG Oral Ta blet Delayed Release Disintegrating 03/14/2019 - 08/26/2021 Provider: LILIA ESPANA MD Diagnosis: Last Documented On 2 12:46PM By Lux Tabares ; [facility], [facility] Oxybutynin Chloride 5 MG Oral Tablet 03/14/2019 - 08/08 Provider: Diagnosis: Last Documented On 12:46PM By Lux Tabares ; [facility] rOPINIRole HCl 0.25 MG Oral Tablet 03/14/2019 - 2021 Provider: Diagnosis: Last Documented On 2 12:46PM By Lux Tabares ; [facility], [facility] Warfarin Sodium 5 MG Oral Tablet 03/05/2019 - 08/27/19 Provider: АНДРЕЙ ESPANA MD Diagnosis: Last Documented On 2 12:47PM By Lux Tabares ; [facility], [facility] Azelastine HCl 0.1% Nasal Solution 02/28/2019 - 2021 Provider: Diagnosis: Last Documented On 2 12:47PM By Lux Tabares ; [facility], [facility] Fluticasone Furoate 50 MCG/A CT Inhalation Aerosol Powder Breath Activated 02/28/2019 - 08/26/2021 Provider: АНДРЕЙ Asencio Diagnosis: Last Documented On 2 12:47PM By Lux Tabares ; [facility], [facility] traMADol HCl 50 MG Oral Tablet 02/28/2019 - 08/26/2021 Provider: АНДРЕЙ ESPANA MD Diagnosis: Last Documented On 2 12:47PM By Lux Tabares ; [facility], [facility] Cephalexin 500 MG Oral Capsule 02/24/2019 - 08/26/2021 Provider: Chan Odell APRN Diagnosis: Last Documented On 2 12:46PM By Lux Tabares ; [facility], [facility] Levocetirizine Dihydrochloride 5 MG Oral Tablet 02/22/2019 - 08/26/2021 Provider: Diagnosis: Last Documented On 2 12:47PM By Lux Tabares ; [facility], [facility] Mupirocin Calcium 2% External Cream 02/22/2019 - 08/26 Provider: Diagnosis: Last Documented On 2 12:46PM By Lux Tabares ; [facility], [facility] Singulair 4MG Oral Packet 01/03/2017 - 03/30/2019 Prov ider: Diagnosis: Last Documented On 0 9:27AM By Rach Bruner ; [facility], [facility] Atorvastatin Calcium 10MG Oral Tablet 01/03/2017 - Provider: Diagnosis: Last Documented On 0 9:27AM By Rach Bruner ; [facility], [facility] Amitriptyline HCl 10MG Oral Tablet 01/03/2017 - 2019 Provider: Diagnosis: Last Documented On 0 9:27AM By Rach Bruner ; [facility], [facility] Lansoprazole 15MG Oral Capsule Delayed Release 1 03/05/2016 - 03/30/2019 Provider: Diagnosis: Last Documented On 0 9:27AM By Rach Bruner ; [facility] Benazepril-Hydrochlorothiazide 10-12.5 MG Tablet 04/03/2015 - 01/03/2017 Provider: Diagnosis: Last Documented On 7 2:03PM By Mee Kmuar ; [facility] Furosemide 20 MG Tablet 04/03/2015 - 01/03/2017 Provid er: Diagnosis: Last Documented On 7 2:03PM By Mee Kumar ; [facility], [facility] Losartan Potassium 25 MG Tablet 04/03/2015 - 0 Provider: Diagnosis: Last Documented On 0 9:27AM By Rach Bruner ; [facility], [facility] Calcium-Vitamin D3 500-400 MG-UNIT Tablet 04/03/2015 - 03/30/2019 Provider: Diagnosis: Last Documented On 0 9:27AM By Rach Bruner ; [facility], [facility] Aspirin 325 MG Tablet 04/03/2015 - 03/30/2019 Provider : Diagnosis: Last Documented On 0 9:27AM By Rach Bruner ; [facility], [facility] Abilify 2 MG Tablet 04/03/2015 - 03/30/2019 Provider: Diagnosis: Last Documented On 0 9:27AM By Rach Bruner ; [facility], [facility] Cymbalta 60 MG Capsule Delayed Release Particles 04/03/2015 - 03/30/2019 Provider: Diagnosis: Last Documented On 0 9:27AM By Rach Bruner ; [facility], [facility] Warfarin Sodium 5 MG Tablet 04/03/2015 - 03/30/2019 Pr ovider: Diagnosis: Last Documented On 0 9:27AM By Rach Bruner ; [facility], [facility] Warfarin Sodium 7.5 MG Tablet 04/03/2015 - 01/03/2017 Provider: Diagnosis: Last Documented On 7 2:03PM By Mee Kumar ; [facility] Piroxicam 20 MG Capsule 04/03/2015 - 01/03/2017 Provid er: Diagnosis: Last Documented On 7 2:02PM By Mee Kumar ; [facility] Gabapentin 300 MG Capsule 04/03/2015 - 01/03/2017 Prov ider: Diagnosis: Last Documented On 7 2:03PM By Mee Kumar ; [facility], [facility] TraMADol HCl ER 300 MG Table t Extended Release 24 Hour 04/03/2015 - 03/30/2019 Provider: Diagnosis: Last Documented On 0 9:27AM By Rach Bruner ; [facility] [place] 10-325 MG Tablet 04/03/2015 - 01/03/2017 Provide r: Diagnosis: Last Documented On 7 2:03PM By Mee Kumar ; [facility] Skelaxin 800 MG Tablet 04/03/2015 - 03/30/2019 Provide r: Diagnosis: Last Documented On 0 9:27AM By Rach Bruner ; [facility], [facility] Medications Administered Includes: Administered Medications in patient's [...] 04/03/2015 Last Documented On 6 4:42PM ; [facility], [facility] Procedures and Surgical History Surgical History Last Updated History of appendectomy 04/03/2015 Last Documented On 6 4:42PM ; [facility], [facility] History of back surgery 04/03/2015 Last Documented On 6 4:42PM ; [facility], [facility] History of hysterectomy 04/03/2015 Last Documented On 6 4:42PM ; [facility], [facility] Medical History Includes: Medical History in patient's chart Description Last Updated Anemia 09/10/2020 Last Documented On 11:54AM ; [facility], [facility] Appendectomy 09/10/2020 Last Documented On 11:54AM ; [facility], [facility] Arthritis 09/10/2020 Last Documented On 11:54AM ; [facility], [facility] Back surgery 09/10/2020 Last Documented On 1 11:54AM ; [facility], [facility] Heartburn / Acid Reflux 09/10/2020 Last Documented On 1 11:54AM ; [facility], [facility] History of asthma 09/10/2020 Last Documented On 1 11:54AM ; [facility], [facility] History of Blood Clots 09/10/2020 Last Documented On 1 11:54AM ; [facility], [facility] History of Emphysema 09/10/2020 Last Documented On 1 11:54AM ; [facility], [facility] History of Gallbladder 09/10/2020 Last Documented On 1 11:54AM ; [facility], [facility] History of osteoporosis 09/10/2020 Last Documented On 1 11:54AM ; [facility], [facility] Hypertension 09/10/2020 Last Documented On 1 11:54AM ; [facility], [facility] Hysterectomy 09/10/2020 Last Documented On 11:54AM ; [facility], [facility] Recent immunization for flu 2020 021 Last Documented On 1 11:54AM ; [facility] Recent immunization for pneumococcal pne [place] 201909/10/2020 Last Documented On 1 11:54AM ; [facility] Carpal Tunnel/ Sinus ~Ovary Removed ~Removal of Scar Tissue- Abdominal ~Anemia ~Blood Clots ~High Cholesteral ~sleep apena ~Acid Reflux ~Blood Transfusion 03/30/2019 Last Documented On 0 8:19AM ; [facility] Liver disease 03/30/2019 Last Documented On 0 8:19AM ; [facility] A recent injection orthovisc 03/30/2019 Last Documented On 0 8:19AM ; [facility] Arthritic joint problems 04/03/2015 Last Documented On 6 4:42PM ; [facility] Gallbladder disease 04/03/2015 Last Documented On 6 4:42PM ; [facility] History of depression 04/03/2015 Last Documented On 6 4:42PM ; [facility] History of gastric ulcer 04/03/2015 Last Documented On 6 4:42PM ; [facility] Intermittent hypertension 04/03/2015 Last Documented On 6 4:42PM ; [facility] Family History Includes: Family History in patient's chart Description Last Updated Diabetes mellitus 09/10/2020 Last Documented On 1 11:54AM ; [facility] Family history of osteoporosis 1 Last Documented On 1 11:54AM ; [facility] Stroke / Seizures 09/10/2020 Last Documented On 1 11:54AM ; [facility] Stroke- Father/brother 03/30/2019 Last Documented On 0 8:19AM ; [facility] Family history of cancer mother 03/30/19 20 Last Documented On 0 8:19AM ; [facility] Family history of diabetes mellitus moth er/brother/daughter ~ 03/30/2019 Last Documented On 0 8:19AM ; [facility], [facility] Family history of heart disease father 0 03/30/2019 Last Documented On 0 8:19AM ; [facility], [facility] Family history of hypertension 0 Last Documented On 0 8:19AM ; [facility], [facility] Family history of thromboembolic disease 03/30/2019 Last Documented On 0 8:19AM ; [facility], [facility] Maternal history of diabetes mellitus Br other 04/03/2015 Last Documented On 6 4:42PM ; [facility], [facility] Maternal history of family history of ca ncer 04/03/2015 Last Documented On 6 4:42PM ; [facility], [facility] Maternal history of thromboembolic disea se 04/03/2015 Last Documented On 6 4:42PM ; [facility], [facility] Paternal history of family history of he art disease 04/03/2015 Last Documented On 6 4:42PM ; [facility], [facility] Paternal history of hypertension Brother 04/03/2015 Last Documented On 6 4:42PM ; [facility] Review of Systems Review of Systems not [...] Patient Last Documented On 0 10:30AM ; [facility] Influenza 2 11/07/2020 Complete (Reported) Patient Last Documented On 2 11:39AM ; [facility] Influenza 3 12/08/2021 Complete (Reported) Patient Last Documented On 2 10:00AM ; [facility] PCV (Pneumovax 23) 1 03/30/2019 Series Com plete (Reported) Patient Last Documented On 0 10:30AM ; [facility] Td 1 09/23/2021 Complete (Refused - Patient objection) [facility] Last Documented On 2 3:52PM ; [facility] Allergies Includes: Active, inactive, and resolved Allergies Substance Type Reaction Onset Date Resolved Date Statu s Sulfa Antibiotics Allergy 04/03/2015 A ctive Last Documented On 3 9:51AM ; [facility] Omnicef Allergy 03/30/2019 Active Last Documented On 3 9:51AM ; [facility] metal Allergy 09/10/2020 Active Last Documented On 3 9:51AM ; [facility] Latex Allergy 07/01/2015 Active Last Documented On 3 9:51AM ; [facility] Biaxin Allergy 07/01/2015 Active Last Documented On 3 9:51AM ; [facility] Augmentin Allergy Skin Rashes / Er uption of skin, Hives / Urticaria 07/01/2015 Active Last Documented On 3 9:51AM ; [facility] adhesive tape Allergy 03/30/2019 Activ e Last Documented On 3 9:51AM ; [facility] Insurance Includes: Active Insurance Policies Plan Name Member ID Group # Subscriber Relationship Effect mario Dates 1 - Medicare Part B [facility] [id number] Ebonie Blue Self 04/08/19 09 - Unknown 2 - [employer] [id number] Ebonie Blue Self 2 - Unknown Clinical Notes Includes: Signed Clinical Notes starting from 01/21/2022 No Clinical Notes Recorded
== END 2024-05-16 23:59 | disposition home or self-care (01) ==
LOC: RT 12:54
PROVIDERS: PCP Nurse Practitioner Family; Visit Provider Physician Assistant
DX: I51.7 Cardiomegaly (principal); I34.0 Nonrheumatic mitral (valve) insufficiency; I36.1 Nonrheumatic tricuspid (valve) insufficiency; R01.1 Cardiac murmur, unspecified
CPT/HCPCS: 93306

== ENCOUNTER 2024-05-17 13:06 | Outpatient (POV) | payer MEDICARE, OTHER, SELFPAY ==
--- NOTE | 2024-05-17 13:10 | EXP.PAIN.SOA ---
[facility] Disclaimer: The information contained in this section may have been updated after the patient was seen, as this information can be updated by other users. 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 Granulomatous lung disease Diastolic dysfunction HLD (hyperlipidemia) Fatigue UTI (urinary tract infection) HTN (hypertension) COPD (chronic obstructive pulmonary disease) Pulmonary embolism DVT (deep venous thrombosis) Eustachian tube dysfunction Allergies History of sinus problem Fibromyalgia Arthritis Migraines Anxiety and depression UTI (urinary tract infection) Kidney stones Hiatal hernia GERD (gastroesophageal reflux disease) Gallbladder disease Pulmonary embolism COPD (chronic obstructive pulmonary disease) Lung disease Asthma Clotting disorder Hypertension DVT (deep venous thrombosis) Fatigue HLD (hyperlipidemia) Abnormal EKG SOB (shortness of breath) Chest pain Surgical History Previous back surgery x2 H/O sinus surgery H/O total hysterectomy History of esophagogastroduodenoscopy (EGD) History of colonoscopy Hx of cholecystectomy Hx of appendectomy History of tonsillectomy History of bilateral carpal tunnel release H/O left breast biopsy H/O cardiac catheterization Family History Other Family history of alcoholism Family history of asthma Family history of bleeding disorder Family history of cancer Family history of diabetes mellitus (DM) Family history of hyperlipidemia Family history of hypertension Family history of myocardial infarction Family history of stroke Family history of substance abuse Social History Smoking Status: Never smoker second hand exposure: No alcohol intake: current alcohol intake frequency: holidays/special occasions only substance use type: denies use current occupational status: other Travel in the last 8 weeks: None household members: spouse housing: house current occupational exposures/hazards: Yes caffeine: Yes PM Subjective & Objective Subjective Subjective:: Patient is a pleasant 68-year-old female who presents today for follow-up of bilateral intra-articular knee injections on 05/01/2024. Today she rates her pain a 0 out of 10. She denies any new trauma or injury from her last appointment. Patient does state that she has had approximately 99percent improvement following these injections. She states that they are still doing well. She states her left shoulder however is a different story. She states she still has the chronic pain in this joint. Patient has had intra-articular injections with her last 1 on March 13 however they do not provide as significant relief as the knees do. She did get about 60% relief the last intra-articular shoulder injection she had. Patient is prescribed gabapentin from an outside provider and compounded cream from our office. Her Oneal has been reviewed and is appropriate. Review of Systems: General: No recent weight changes, no fever, no sleep disturbances Respiratory: No cough, no shortness of air, no recurring pulmonary infections Cardiovascular/peripheral vascular: No chest pain, no palpitations, no edema, no shortness of breath Gastrointestinal: No new onset incontinence, normal bowel movements reported Genitourinary: No new onset incontinence Musculoskeletal: left shoulder pain Psychiatric: [Normal mood/affect] Neurological: [Denies weakness in extremities], [denies balance issues] Pain at rest (0-10 scale): 0 Objective Objective:: Physical Exam: General: Alert and oriented x3, no acute distress, pleasant and cooperative Lungs: Respirations even and unlabored, symmetrical chest expansion Eyes: PERRL Musculoskeletal: Flexion and extension of left shoulder somewhat guarded secondary to pain, [antalgic gait noted] Neurological: Speech clear, no gross sensory deficit Has patient had previous pain injection?: Yes Percent improvement in pain since last injection: 99 percent Conservative treatment options previously tried: Home exercise plan Length of treatment: Longer than 12 weeks Meds Home Medications and Allergies Home Medications ?Medication ?Instructions ?Recorded ?Confirmed ?Type cholecalciferol (vitamin D3) 25 4,000 unit PO DAILY Supplement 05/24/17 05/07/24 History mcg (1,000 unit) capsule duloxetine 60 mg capsule,delayed 60 mg PO BID Depression 05/24/17 05/07/24 History release fluticasone propionate 50 9.9 ml intranasal DAILY allergies 05/24/17 05/07/24 History mcg/actuation nasal spray,suspension montelukast 10 mg tablet 10 mg PO PM Asthma 05/24/17 05/07/24 History aspirin 81 mg tablet,delayed 81 mg PO HS Blood thinner 12/19/18 05/07/24 History release levocetirizine 5 mg tablet 5 mg PO HS Allergy symptoms 12/19/18 05/07/24 History ondansetron 4 mg disintegrating 4 mg PO Q8HP PRN Nausea ##20 02/07/19 05/07/24 Rx tablet albuterol sulfate 90 mcg/actuation 2 puffs inhalation Q4HP PRN 04/10/19 05/07/24 History aerosol inhaler Shortness Of Breath Or Wheezing fluticasone 500 mcg-salmeterol 50 1 puff inhalation BID COPD 03/25/20 05/07/24 History mcg/dose blistr powdr for inhalation magnesium 250 mg tablet 250 mg PO DAILY Supplement 04/30/20 05/07/24 History gabapentin 300 mg capsule 300 mg PO TID nerve pain 04/28/21 05/07/24 History warfarin 5 mg tablet 7.5 mg PO DAILY BLOOD CLOTS 04/29/21 05/07/24 History amitriptyline 50 mg tablet 50 mg PO HS MOOD 04/29/22 05/07/24 History ropinirole 1 mg tablet 1 mg PO HS Pain 04/29/22 05/07/24 History amlodipine 5 mg tablet See Rx Instructions .Route 10/17/23 05/07/24 Rx .COMPLEX #90 tabs omeprazole 20 mg capsule,delayed 20 mg PO DAILY GERD #90 caps 01/24/24 05/07/24 Rx release buspirone 10 mg tablet 10 mg PO DAILY 05/07/24 05/07/24 History pravastatin 20 mg tablet 20 mg PO DAILY 05/07/24 05/07/24 History New Prescriptions to Start Prescriptions: Allergies Allergy/AdvReac Type Severity Reaction Status Date / Time Sulfa (Sulfonamide Allergy Severe Hives Verified 05/07/24 14:53 Antibiotics) adhesive Allergy Unknown S-BLISTERING Verified 05/07/24 14:53 WELTS amoxicillin (From Augmentin) Allergy Unknown Rash Verified 05/07/24 14:53 cefdinir Allergy Unknown I-RASH Verified 05/07/24 14:53 clarithromycin Allergy Unknown I-RASH Verified 05/07/24 14:53 clavulanic acid Allergy Unknown Rash Verified 05/07/24 14:53 codeine Allergy Unknown NA-NAUSEA/V Verified 05/07/24 14:53 OMITING latex Allergy Unknown S-BLISTERING Verified 05/07/24 14:53 WELTS nitrofurantoin (From Allergy Unknown Unknown Verified 05/07/24 14:53 Macrobid) allergy reaction sulfamethoxazole (From Allergy Unknown I-RASH,DIAR Verified 05/07/24 14:53 Bactrim) HEA trimethoprim (From Bactrim) Allergy Unknown I-RASH,DIAR Verified 05/07/24 14:53 MARY JO Assessment and Plan *Assessment and plan (1) Bilateral knee pain: Status: Acute Qualifiers: Chronicity: chronic Qualified Code(s): M25.561 - Pain in right knee; M25.562 - Pain in left knee; G89.29 - Other chronic pain Category: Medical Code(s): M25.561 - Pain in right knee; M25.562 - Pain in left knee (2) Degenerative joint disease of cervical and lumbar spine: Status: Acute Category: Medical Code(s): M47.812 - Spondylosis without myelopathy or radiculopathy, cervical region; M47.816 - Spondylosis without myelopathy or radiculopathy, lumbar region (3) Postlaminectomy syndrome, lumbar: Status: Acute Category: Medical Code(s): M96.1 - Postlaminectomy syndrome, not elsewhere classified Plan Patient has had significant improvement following her bilateral knee injections and does not require any additional injection therapy at this location. Patient will return to clinic in 6 weeks for reevaluation of symptoms and plan of care. Patient has been instructed to contact the clinic with any concerns before the next appointment. Dr. Walls has reviewed this note and agrees with this plan of care. This note was dictated using voice recognition software and make contain errors or omissions. All injections are used with Lidocaine, Bupivacaine and Depo Medrol. Occasionally urine drug screen is needed to verify patient's compliance with our office pain contract. This is ordered based off specific treatments related to chronic pain with the potential to abuse certain medications.
[2024-05-17 14:08] VITALS: BP 105/56; PULSE 62; RESP 18; O2SAT 92; BMI 34.4
--- OUTSIDE RECORDS SUMMARY | 2024-05-17 23:25 | XMS_ITS | Clinical Summary ---
Author Organization [facility] Address [address] [place] [address] Phone Care Team Providers Care Diet Supervisor Name Role Phone JOVI JIMENES, АНДРЕЙ Primary Care Provider [phone] Tony JIMENES, Cristiano York Unavailable [phone] Reason for Visit and Chief Complaint [place] Injection Problems Includes: Problems addressed during this encounter and other active Problems All Visits Onset Date Resolved Date Provider Condition S tatus Joint Pain, Localized in the Right Shoulder 09/21/2021 Morris Madrid PA-C Active Last Documented On 2 10:31AM ; [facility], [facility] Joint Pain in Both Knees 09/16/2021 Elvira frausto PA-C Active Last Documented On 2 1:34PM ; [facility] Plan of Treatment No Plan [...] Steele ; [facility], [facility] Dicyclomine HCl 10 MG Oral [...] MG Oral Capsule Delayed Release 10/15/19 Provider: АНРДЕЙ ESPANA MD Diagnosis: Last Documented On 2 2:59PM By Greg Steele ; [facility] Levocetirizine Dihydrochloride 5 MG Oral [...] On 2 2:59PM By Greg Steele ; [facility], [facility] traMADol HCl 50 MG Oral Tablet 09/11/2021 Provider: АНДРЕЙ ESPANA MD Diagnosis: Last Documented On 2 10:21AM By Autumn Bloom ; [facility], [facility] Metaxalone 800 MG Oral Tablet 09/11/2021 Provider: Sandra Lenz APRN Diagnosis: Last Documented On 2 10:21AM By Autumn Bloom ; [facility], [facility] Gabapentin 300 MG Oral Capsule 09/10/2021 Provider: АНДРЕЙ ESPANA MD Diagnosis: Last Documented On 2 10:21AM By Autumn Bloom ; [facility], [facility] amLODIPine Besylate 5 MG Oral Tablet 09/04/2021 Prov ider: Diagnosis: Last Documented On 2 10:21AM By Autumn Bloom ; [facility], [facility] Advair Diskus 500-50 MCG/ACT Inhalation Aerosol Powder Breath Activated 08/19/2021 Provider: Diagnosis: Last Documented On 2 10:21AM By Autumn Bloom ; [facility] Medications Administered Includes: Administered Medications from this encounter No Administered Medications Recorded Vital Signs Includes: Vital Signs from this encounter Vital Name 08/31/2022 09:52A Height (in) 65 Weight (lb) 207 Body Mass Index 34.4 Body Surface Area 2 Note: bdf Last Documented: On 08/31/2022 9:52AM ; [facility], [facility] Results Includes: Results discussed during this [...] Active Last Documented On 3 9:51AM ; [facility] adhesive tape Allergy 03/30/2019 Activ e Last Documented On 3 9:51AM ; [facility] Encounters Encounter Provider Location Date Check-In Time Check-Out Time Diagnosis [place] Injection Elvira Yanez PA-C [facility] 09/01/19 23 9:44AM 9:59AM Insurance Includes: Active Insurance Policies Plan Name Member ID Group # Subscriber Relationship Effect mario Dates 1 - Medicare Part B [facility] [id number] Ebonie Blue Self 04/08/19 09 - Unknown 2 - [employer] [id number] Ebonie Blue Self 2 - Unknown Clinical Notes Includes: Clinical Notes from this encounter No Clinical Notes Recorded
--- OUTSIDE RECORDS SUMMARY | 2024-05-17 23:25 | XMS_ITS ---
Author Organization [facility], [facility] Address [address] [place] [address] Phone Care Team Providers Care Shingle Sawyer Name Role Phone АНДРЕЙ ESPANA MD Primary Care Provider [phone] Tony JIMENES, Cristiano York Unavailable [phone] [...] Active Last Documented On 2 10:31AM ; [facility] Joint Pain in Both Knees 09/16/2021 Elvira frausto PA-C Active Last Documented On 2 1:34PM ; [facility] Joint Pain, Localized in the Right Shoulder 07/27/2021 08/26/2021 Morris Madrid PA-C Resolved Last Documented On 2 12:45PM ; [facility] Joint Pain, Localized in the Knee 04/03/2015 08/26/2021 Rosalva Yanez PA-C Resolved Last Documented On 2 12:45PM ; [facility] Plan of Treatment Pending Tests Order Diagnosis Results Due Ordering P rovider Radiology - MRI MRI Shoulder 10/07/21 Rock Toribio MD Last Documented On 2 11:09AM ; [facility] Instructions to patient Intervention and [...] weight Last Documented On 2 10:20AM ; [facility] No intervention and counseli ng [...] ssation Last Documented On 7 8:49AM ; [facility] Health seminar on smoking ce ssation Last Documented On 7 9:11AM ; [facility] Health seminar on smoking ce ssation Last Documented On 7 9:48AM ; [facility] Health seminar on smoking ce ssation Last Documented On 7 9:11AM ; [facility] Health seminar on smoking ce ssation Last Documented On 6 10:44AM ; [facility] Health seminar on smoking ce ssation Last Documented On 6 9:40AM ; [facility] Health seminar on smoking ce ssation Last Documented On 6 8:53AM ; [facility] Health seminar on smoking ce ssation Last Documented On 6 9:03AM ; [facility] Health seminar on smoking ce ssation Last Documented On 6 9:17AM ; [facility] Health seminar on smoking ce ssation Last Documented On 6 10:24AM ; [facility], [facility] Health seminar on smoking ce ssation Last Documented On 6 10:32AM ; [facility], [facility] Medical Equipment - Implanted Devices Includes: Current and historical Devices No Medical Equipment Recorded Medications Includes: Current and historical Medications Current Medications (continue as prescribed) rOPINIRole HCl 1 MG Oral Tablet 11/19/2021 Provider: АНДРЕЙ ESPANA MD Diagnosis: Last Documented On 2 2:59PM By Greg Steele ; [facility], [facility] Dicyclomine HCl 10 MG Oral Capsule [...] On 2 2:59PM By Greg Steele ; [facility] Levocetirizine Dihydrochloride 5 MG [...] ; [facility] traMADol HCl 50 MG Oral Tablet 09/11/2021 Provider: АНДРЕЙ ESPANA MD Diagnosis: Last Documented On 10:21AM By Autumn Bloom ; [facility] Metaxalone 800 MG Oral Tablet 09/11/2021 Provider: Sandra Lenz APRN Diagnosis: Last Documented On 10:21AM By Autumn Bloom ; [facility] Gabapentin 300 MG Oral Capsule 09/10/2021 Provider: АНДРЕЙ ESPANA MD Diagnosis: Last Documented On 10:21AM By Autumn Bloom ; [facility], [facility] amLODIPine Besylate 5 MG Oral Tablet 09/04/2021 Prov ider: Diagnosis: Last Documented On 10:21AM By Autumn Bloom ; [facility], [facility] Advair Diskus 500-50 MCG/ACT Inhalation Aerosol Powder Breath Activated 08/19/2021 Provider: Diagnosis: Last Documented On 10:21AM By Autumn Bloom ; [facility], [facility] Past Medications on file Amitriptyline HCl 25 MG Oral Tablet 08/26/2021 - 09/25/2021 Provider: АНДРЕЙ Asencio Diagnosis: Last Documented On 12:46PM By Lux Tabares ; [facility], [facility] Azelastine HCl 0.1% Nasal Solution 08/26/2021 - 2021 Provider: Diagnosis: Last Documented On 12:47PM By Lux Tabares ; [facility], [facility] traMADol HCl 50 MG Oral Tablet 08/26/2021 - 09/21/2021 Provider: АНДРЕЙ ESPANA MD Diagnosis: Last Documented On 10:22AM By Autumn Bloom ; [facility], [facility] Fluticasone Furoate 50 MCG/A CT Inhalation Aerosol Powder Breath Activated 08/26/2021 - 09/25/2021 Provider: АНДРЕЙ Asencio Diagnosis: Last Documented On 12:47PM By Lxu Tabares ; [facility], [facility] Levocetirizine Dihydrochloride 5 MG Oral Tablet 08/26/2021 - 09/25/2021 Provider: Diagnosis: Last Documented On 2 12:47PM By Lux Tabares ; [facility], [facility] Warfarin Sodium 5 MG Oral Tablet 08/26/2021 - 09/24/19 Provider: АНДРЕЙ ESPANA MD Diagnosis: Last Documented On 2 12:47PM By Lux Tabares ; [facility], [facility] rOPINIRole HCl 0.25 MG Oral Tablet 08/26/2021 - 2021 Provider: Diagnosis: Last Documented On 2 12:46PM By Lux Tabares ; [facility], [facility] Oxybutynin Chloride 5 MG Oral Tablet 08/26/2021 - 09/07 Provider: Diagnosis: Last Documented On 2 12:46PM By Lux Tabares ; [facility], [facility] Omeprazole 20 MG Oral Ta blet Delayed Release Disintegrating 08/26/2021 - 09/25/2021 Provider: LILIA ESPANA MD Diagnosis: Last Documented On 2 12:46PM By Lux Tabares ; [facility], [facility] Montelukast Sodium 10 MG Ora l Tablet 08/26/2021 - 09/25/2021 Provider: АНДРЕЙ Asencio Diagnosis: Last Documented On 2 12:46PM By Lux Tabares ; [facility], [facility] DULoxetine HCl 60 MG Oral Ca psule Delayed Release Particles 08/26/2021 - 09/25/2021 Provider: АНДРЕЙ MENDOZA MD Diagnosis: Last Documented On 2 12:46PM By Lux Tabares ; [facility], [facility] Amitriptyline HCl 25 MG Oral Tablet 03/19/2019 - 08/26/2021 Provider: АНДРЕЙ Asencio Diagnosis: Last Documented On 2 12:46PM By Lux Tabares ; [facility], [facility] DULoxetine HCl 60 MG Oral Ca psule Delayed Release Particles 03/19/2019 - 08/26/2021 Provider: АНДРЕЙ MENDOZA MD Diagnosis: Last Documented On 2 12:46PM By Lux Tabares ; [facility], [facility] Montelukast Sodium 10 MG Ora l Tablet 03/18/2019 - 08/26/2021 Provider: АНДРЕЙ Asencio Diagnosis: Last Documented On 2 12:46PM By Lux Tabares ; [facility], [facility] Omeprazole 20 MG Oral Ta blet Delayed Release Disintegrating 03/14/2019 - 08/26/2021 Provider: LILIA ESPANA MD Diagnosis: Last Documented On 2 12:46PM By Lux Tabares ; [facility], [facility] Oxybutynin Chloride 5 MG Oral Tablet 03/14/2019 - 08/08 Provider: Diagnosis: Last Documented On 12:46PM By Lux Tabares ; [facility], [facility] rOPINIRole HCl 0.25 MG Oral Tablet 03/14/2019 - 2021 Provider: Diagnosis: Last Documented On 2 12:46PM By Lux Tabares ; [facility], [facility] Warfarin Sodium 5 MG Oral Tablet 03/05/2019 - 08/27/19 Provider: АНДРЕЙ ESPANA MD Diagnosis: Last Documented On 2 12:47PM By Lux Tabares ; [facility], [facility] Azelastine HCl 0.1% Nasal Solution 02/28/2019 - 2021 Provider: Diagnosis: Last Documented On 2 12:47PM By Lux Tabares ; [facility], [facility] Fluticasone Furoate 50 MCG/A CT Inhalation Aerosol Powder Breath Activated 02/28/2019 - 08/26/2021 Provider: АНДРЕЙ Asencio Diagnosis: Last Documented On 2 12:47PM By Lux Tabares ; [facility], [facility] traMADol HCl 50 MG Oral Tablet 02/28/2019 - 08/26/2021 Provider: АНДРЕЙ ESPANA MD Diagnosis: Last Documented On 2 12:47PM By Lux Tabares ; [facility], [facility] Cephalexin 500 MG Oral Capsule 02/24/2019 - 08/26/2021 Provider: Chan Odell APRN Diagnosis: Last Documented On 2 12:46PM By Lux Tabares ; [facility], [facility] Levocetirizine Dihydrochloride 5 MG Oral Tablet 02/22/2019 - 08/26/2021 Provider: Diagnosis: Last Documented On 2 12:47PM By Lux Tabares ; [facility], [facility] Mupirocin Calcium 2% External Cream 02/22/2019 - 08/26 Provider: Diagnosis: Last Documented On 2 12:46PM By Lux Tabares ; [facility], [facility] Singulair 4MG Oral Packet 01/03/2017 - 03/30/2019 Prov ider: Diagnosis: Last Documented On 0 9:27AM By Rach Bruner ; [facility], [facility] Atorvastatin Calcium 10MG Oral Tablet 01/03/2017 - Provider: Diagnosis: Last Documented On 0 9:27AM By Rach Bruner ; [facility], [facility] Amitriptyline HCl 10MG Oral Tablet 01/03/2017 - 2019 Provider: Diagnosis: Last Documented On 0 9:27AM By Rach Bruner ; [facility], [facility] Lansoprazole 15MG Oral Capsule Delayed Release 1 03/05/2016 - 03/30/2019 Provider: Diagnosis: Last Documented On 0 9:27AM By Rach Bruner ; [facility], [facility] Benazepril-Hydrochlorothiazide 10-12.5 MG Tablet 04/03/2015 - 01/03/2017 Provider: Diagnosis: Last Documented On 7 2:03PM By Mee Kumar ; [facility], [facility] Furosemide 20 MG Tablet 04/03/2015 - 01/03/2017 Provid er: Diagnosis: Last Documented On 7 2:03PM By Mee Kumar ; [facility], [facility] Losartan Potassium 25 MG Tablet 04/03/2015 - 0 Provider: Diagnosis: Last Documented On 0 9:27AM By Rach Bruner ; [facility], [facility] Calcium-Vitamin D3 500-400 MG-UNIT Tablet 04/03/2015 - 03/30/2019 Provider: Diagnosis: Last Documented On 0 9:27AM By Rach Bruner ; [facility], [facility] Aspirin 325 MG Tablet 04/03/2015 - 03/30/2019 Provider : Diagnosis: Last Documented On 0 9:27AM By Rach Bruner ; [facility], [facility] Abilify 2 MG Tablet 04/03/2015 - 03/30/2019 Provider: Diagnosis: Last Documented On 0 9:27AM By Rach Bruner ; [facility], [facility] Cymbalta 60 MG Capsule Delayed Release Particles 04/03/2015 - 03/30/2019 Provider: Diagnosis: Last Documented On 0 9:27AM By Rach Bruner ; [facility], [facility] Warfarin Sodium 5 MG Tablet 04/03/2015 - 03/30/2019 Pr ovider: Diagnosis: Last Documented On 0 9:27AM By Rach Bruner ; [facility], [facility] Warfarin Sodium 7.5 MG Tablet 04/03/2015 - 01/03/2017 Provider: Diagnosis: Last Documented On 7 2:03PM By Mee Kumar ; [facility], [facility] Piroxicam 20 MG Capsule 04/03/2015 - 01/03/2017 Provid er: Diagnosis: Last Documented On 7 2:02PM By Mee Kumar ; [facility], [facility] Gabapentin 300 MG Capsule 04/03/2015 - 01/03/2017 Prov ider: Diagnosis: Last Documented On 7 2:03PM By Mee Kumar ; [facility], [facility] TraMADol HCl ER 300 MG Table t Extended Release 24 Hour 04/03/2015 - 03/30/2019 Provider: Diagnosis: Last Documented On 0 9:27AM By Rach Bruner ; [facility], [facility] Paxton 10-325 MG Tablet 04/03/2015 - 01/03/2017 Provide r: Diagnosis: Last Documented On 7 2:03PM By Mee Kumar ; [facility], [facility] Skelaxin 800 MG Tablet 04/03/2015 - 03/30/2019 Provide r: Diagnosis: Last Documented On 0 9:27AM By Rach Bruner ; [facility], [facility] Medications Administered Includes: Administered Medications in [...] 04/03/2015 Last Documented On 6 4:42PM ; [facility], [facility] Procedures and Surgical History Surgical History Last Updated History of appendectomy 04/03/2015 Last Documented On 6 4:42PM ; [facility] History of back surgery 04/03/2015 Last Documented On 6 4:42PM ; [facility], [facility] History of hysterectomy 04/03/2015 Last Documented On 6 4:42PM ; [facility], [facility] Medical History Includes: Medical History in patient's chart Description Last Updated Anemia 09/10/2020 Last Documented On 11:54AM ; [facility], [facility] Appendectomy 09/10/2020 Last Documented On 11:54AM ; [facility], [facility] Arthritis 09/10/2020 Last Documented On 11:54AM ; [facility], [facility] Back surgery 09/10/2020 Last Documented On 1 11:54AM ; [facility] Heartburn / Acid Reflux 09/10/2020 Last Documented On 1 11:54AM ; [facility] History of asthma 09/10/2020 Last Documented On 1 11:54AM ; [facility] History of Blood Clots 09/10/2020 Last Documented On 1 11:54AM ; [facility] History of Emphysema 09/10/2020 Last Documented On 1 11:54AM ; [facility] History of Gallbladder 09/10/2020 Last Documented On 1 11:54AM ; [facility] History of osteoporosis 09/10/2020 Last Documented On 1 11:54AM ; [facility] Hypertension 09/10/2020 Last Documented On 1 11:54AM ; [facility] Hysterectomy 09/10/2020 Last Documented On 11:54AM ; [facility], [facility] Recent immunization for flu 2020 021 Last Documented On 1 11:54AM ; [facility] Recent immunization for pneumococcal pne umonia 201909/10/2020 Last Documented On 1 11:54AM ; [facility] Carpal Tunnel/ Sinus ~Ovary Removed ~Removal of Scar Tissue- Abdominal ~Anemia ~Blood Clots ~High Cholesteral ~sleep apena ~Acid Reflux ~Blood Transfusion 03/30/2019 Last Documented On 0 8:19AM ; [facility] Liver disease 03/30/2019 Last Documented On 0 8:19AM ; [facility] A recent injection orthovisc 03/30/2019 Last Documented On 0 8:19AM ; [facility] Arthritic joint problems 04/03/2015 Last Documented On 6 4:42PM ; [facility] Gallbladder disease 04/03/2015 Last Documented On 6 4:42PM ; [facility] History of depression 04/03/2015 Last Documented On 6 4:42PM ; [facility] History of gastric ulcer 04/03/2015 Last Documented On 6 4:42PM ; [facility] Intermittent hypertension 04/03/2015 Last Documented On 6 4:42PM ; [facility] Family History Includes: Family History in patient's chart Description Last Updated Diabetes mellitus 09/10/2020 Last Documented On 1 11:54AM ; [facility] Family history of osteoporosis 1 Last Documented On 1 11:54AM ; [facility] Stroke / Seizures 09/10/2020 Last Documented On 1 11:54AM ; [facility] Stroke- Father/brother 03/30/2019 Last Documented On 0 8:19AM ; [facility] Family history of cancer mother 03/30/19 20 Last Documented On 0 8:19AM ; [facility] Family history of diabetes mellitus moth er/brother/daughter ~ 03/30/2019 Last Documented On 0 8:19AM ; [facility] Family history of heart disease father 0 03/30/2019 Last Documented On 0 8:19AM ; [facility] Family history of hypertension 0 Last Documented On 0 8:19AM ; [facility] Family history of thromboembolic disease 03/30/2019 Last Documented On 0 8:19AM ; [facility] Maternal history of diabetes mellitus Br other 04/03/2015 Last Documented On 6 4:42PM ; [facility], [facility] Maternal history of family history of ca ncer 04/03/2015 Last Documented On 6 4:42PM ; [facility], [facility] Maternal history of thromboembolic disea se 04/03/2015 Last Documented On 6 4:42PM ; [facility], [facility] Paternal history of family history of he art disease 04/03/2015 Last Documented On 6 4:42PM ; [facility] Paternal history of hypertension Brother 04/03/2015 Last Documented On 6 4:42PM ; [facility], [facility] Review of Systems Review of Systems [...] Patient Last Documented On 0 10:30AM ; [facility], [facility] Influenza 2 11/07/2020 Complete (Reported) Patient Last Documented On 2 11:39AM ; [facility] Influenza 3 12/08/2021 Complete (Reported) Patient Last Documented On 2 10:00AM ; [facility] PCV (Pneumovax 23) 1 03/30/2019 Series Com plete (Reported) Patient Last Documented On 0 10:30AM ; [facility], [facility] Td 1 09/23/2021 Complete (Refused - Patient objection) [facility] Last Documented On 2 3:52PM ; [facility] Allergies Includes: Active, inactive, and resolved Allergies Substance Type Reaction Onset Date Resolved Date Statu s Sulfa Antibiotics Allergy 04/03/2015 A ctive Last Documented On 3 9:51AM ; [facility] Omnicef Allergy 03/30/2019 Active Last Documented On 3 9:51AM ; [facility] metal Allergy 09/10/2020 Active Last Documented On 3 9:51AM ; [facility] Latex Allergy 07/01/2015 Active Last Documented On 3 9:51AM ; [facility] Biaxin Allergy 07/01/2015 Active Last Documented On 3 9:51AM ; [facility] Augmentin Allergy Skin Rashes / Er uption of skin, Hives / Urticaria 07/01/2015 Active Last Documented On 3 9:51AM ; [facility] adhesive tape Allergy 03/30/2019 Activ e Last Documented On 3 9:51AM ; [facility] Insurance Includes: Active Insurance Policies Plan Name Member ID Group # Subscriber Relationship Effect mario Dates 1 - Medicare Part B [facility] [id number] Ebonie Blue Self 04/08/19 09 - Unknown 2 - ITC [id number] Ebonie Blue Self 2 - Unknown Clinical Notes Includes: Signed Clinical Notes starting from 01/21/2022 No Clinical Notes Recorded
--- OUTSIDE RECORDS SUMMARY | 2024-05-17 23:25 | XMS_ITS | Clinical Summary ---
Author Organization [facility] , [facility] Address [address] [place] [address] Phone Care Team Providers Care Packer And Carry Out Name Role Phone JOVI JIMENES, АНДРЕЙ Primary Care Provider [phone] Tony JIMENES, Cristiano [place] Unavailable [phone] Reason for Visit and Chief Complaint [place] Injection Problems Includes: Problems addressed during this encounter and other active Problems All Visits Onset Date Resolved Date Provider Condition S tatus Joint Pain, Localized in the Right Shoulder 09/21/2021 Morris Madrid PA-C Active Last Documented On 2 10:31AM ; [facility], [facility] Joint Pain in Both Knees 09/16/2021 Elvira frausto PA-C Active Last Documented On 2 1:34PM ; [facility] Plan of Treatment No Plan [...] On 2 2:59PM By Greg Steele ; [facility], [facility] Dicyclomine HCl 10 MG Oral Capsule 11/19/2021 Provid er: Diagnosis: Last Documented On 2 2:59PM By Greg Steele ; [facility] Levocetirizine Dihydrochloride 5 MG Oral Tablet 2021 Provider: Diagnosis: Last Documented On 2 2:59PM By Greg Steele ; [facility] DULoxetine HCl 60 MG Oral Ca psule Delayed Release Particles 11/06/2021 Provider: АНДРЕЙ ESPANA MD Diagnosis: Last Documented On 2 2:59PM By Greg Steele ; [facility] rOPINIRole HCl 1 MG Oral Tablet 10/21/2021 Provider: АНДРЕЙ ESPANA MD Diagnosis: Last Documented On 2 2:59PM By Greg Steele ; [facility] Warfarin Sodium 7.5 MG Oral Tablet 10/14/2021 Provid er: АНДРЕЙ ESPANA MD Diagnosis: Last Documented On 2 2:59PM By Greg Steele ; [facility] Omeprazole 20 MG Oral Capsule Delayed Release 10/15/19 Provider: АНДРЕЙ ESPANA MD Diagnosis: Last Documented On 2 2:59PM By Greg Steele ; [facility] Levocetirizine Dihydrochloride 5 MG Oral Tablet 2021 Provider: Diagnosis: Last Documented On 2 2:59PM By Greg Steele ; [facility] Azelastine HCl 137 MCG/SPRAY Nasal Solution 10/13/2021 Provider: Diagnosis: Last Documented On 2 2:59PM By Greg Steele ; [facility] Oxybutynin Chloride 5 MG Oral Tablet 10/09/2021 Prov ider: Diagnosis: Last Documented On 2 2:59PM By Greg Steele ; [facility] Atorvastatin Calcium 20 MG Oral Tablet 10/09/2021 Pr ovider: Diagnosis: Last Documented On 2 2:59PM By Greg Steele ; [facility] Montelukast Sodium 10 MG Oral Tablet 09/28/2021 Prov ider: Diagnosis: Last Documented On 2 2:59PM By Greg Steele ; [facility] Amitriptyline HCl 50 MG Oral Tablet 09/22/2021 Provi benjy: АНДРЕЙ ESPANA MD Diagnosis: Last Documented On 2 2:59PM By Greg Steele ; [facility], [facility] traMADol HCl 50 MG Oral Tablet 09/11/2021 Provider: АНДРЕЙ ESPANA MD Diagnosis: Last Documented On 2 10:21AM By Autumn Bloom ; [facility] Metaxalone 800 MG Oral Tablet 09/11/2021 Provider: Sandra Lenz APRN Diagnosis: Last Documented On 2 10:21AM By Autumn Bloom ; [facility], [facility] Gabapentin 300 MG Oral Capsule 09/10/2021 Provider: АНДРЕЙ ESPANA MD Diagnosis: Last Documented On 2 10:21AM By Autumn Bloom ; [facility], [facility] amLODIPine Besylate 5 MG Oral Tablet 09/04/2021 Prov ider: Diagnosis: Last Documented On 2 10:21AM By Autumn Bloom ; [facility], [facility] Advair Diskus 500-50 MCG/ACT Inhalation Aerosol Powder Breath Activated 08/19/2021 Provider: Diagnosis: Last Documented On 2 10:21AM By Autumn Bloom ; [facility], [facility] Medications Administered Includes: Administered Medications from [...] Documented On 3 9:51AM ; [facility] Omnicef Allergy 03/30/2019 Active Last Documented On 3 9:51AM ; [facility] metal Allergy 09/10/2020 Active Last Documented On 3 9:51AM ; [facility] Latex Allergy 07/01/2015 Active Last Documented On 3 9:51AM ; [facility] Biaxin Allergy 07/01/2015 Active Last Documented On 3 9:51AM ; [facility] Augmentin Allergy Skin Rashes / Er uption of skin, Hives / Urticaria 07/01/2015 Active Last Documented On 3 9:51AM ; [facility] adhesive tape Allergy 03/30/2019 Activ e Last Documented On 3 9:51AM ; [facility] Encounters Encounter Provider Location Date Check-In Time Check-Out Time Diagnosis [place] Injection Elvira Yanez PA-C [facility] 08/25/19 23 9:37AM 10:06AM Insurance Includes: Active Insurance Policies Plan Name Member ID Group # Subscriber Relationship Effect mario Dates 1 - Medicare Part B [facility] [id number] Ebonie Blue Self 04/08/19 09 - Unknown 2 - natue [id number] Ebonie Blue Self 2 - Unknown Clinical Notes Includes: Clinical Notes from this encounter No Clinical Notes Recorded
--- OUTSIDE RECORDS SUMMARY | 2024-05-17 23:25 | XMS_ITS ---
Care Plan - [facility], [facility] Created on: May 17, 2024 Ebonie Blue : 1955 Sex: Female Author Organization [facility], [facility] Address [address] [place] [address] Phone Care Team Providers Care Grain Handler Name Role Phone JOVI JIMENES, АНДРЕЙ Primary Care Provider [phone] Tony JIMENES, Cristiano [place] [facility] [phone]
--- OUTSIDE RECORDS SUMMARY | 2024-05-17 23:25 | XMS_ITS | Clinical Summary ---
Author Organization [facility] , [facility] Address [address] [place] [address] Phone Care Team Providers Care Stock Broker Name Role Phone JOVI JIMENES, АНДРЕЙ Primary Care Provider [phone] Tony JIMENES, Cristiano [place] Unavailable [phone] Reason for Visit and Chief Complaint [place] Injection Problems Includes: Problems addressed during this encounter and other active Problems All Visits Onset Date Resolved Date Provider Condition S tatus Joint Pain, Localized in the Right Shoulder 09/21/2021 Morris Madrid PA-C Active Last Documented On 2 10:31AM ; [facility], [facility] Joint Pain in Both Knees 09/16/2021 Elvira frausto PA-C Active Last Documented On 2 1:34PM ; [facility] Plan of Treatment No Plan of [...] On 2 2:59PM By Greg Steele ; [facility], [facility] Dicyclomine HCl 10 MG Oral Capsule 11/19/2021 Provid er: Diagnosis: Last Documented On 2 2:59PM By Greg Steele ; [facility] Levocetirizine Dihydrochloride 5 MG Oral Tablet 2021 Provider: Diagnosis: Last Documented On 2 2:59PM By Greg Steele ; [facility] DULoxetine HCl 60 MG Oral Ca psule Delayed Release Particles 11/06/2021 Provider: АНДРЕЙ ESPANA MD Diagnosis: Last Documented On 2 2:59PM By Greg Steele ; [facility] rOPINIRole HCl 1 MG Oral Tablet 10/21/2021 Provider: АНДРЕЙ ESPANA MD Diagnosis: Last Documented On 2 2:59PM By Greg Steele ; [facility] Warfarin Sodium 7.5 MG Oral Tablet 10/14/2021 Provid er: АНДРЕЙ ESPANA MD Diagnosis: Last Documented On 2 2:59PM By Greg Steele ; [facility] Omeprazole 20 MG Oral Capsule Delayed Release 10/15/19 Provider: АНДРЕЙ ESPANA MD Diagnosis: Last Documented On 2 2:59PM By Greg Steele ; [facility] Levocetirizine Dihydrochloride 5 MG Oral Tablet 2021 Provider: Diagnosis: Last Documented On 2 2:59PM By Greg Steele ; [facility] Azelastine HCl 137 MCG/SPRAY Nasal Solution 10/13/2021 Provider: Diagnosis: Last Documented On 2 2:59PM By Greg Steele ; [facility] Oxybutynin Chloride 5 MG Oral Tablet 10/09/2021 Prov ider: Diagnosis: Last Documented On 2 2:59PM By Greg Steele ; [facility] Atorvastatin Calcium 20 MG Oral Tablet 10/09/2021 Pr ovider: Diagnosis: Last Documented On 2 2:59PM By Greg Steele ; [facility] Montelukast Sodium 10 MG Oral Tablet 09/28/2021 Prov ider: Diagnosis: Last Documented On 2 2:59PM By Greg Steele ; [facility] Amitriptyline HCl 50 MG Oral Tablet 09/22/2021 Provi benjy: АНДРЕЙ ESPANA MD Diagnosis: Last Documented On 2 2:59PM By Greg Steele ; [facility], [facility] traMADol HCl 50 MG Oral Tablet 09/11/2021 Provider: АНДРЕЙ ESPANA MD Diagnosis: Last Documented On 2 10:21AM By Autumn Bloom ; [facility] Metaxalone 800 MG Oral Tablet 09/11/2021 Provider: Sandra Lenz APRN Diagnosis: Last Documented On 2 10:21AM By Autumn Bloom ; [facility], [facility] Gabapentin 300 MG Oral Capsule 09/10/2021 Provider: АНДРЕЙ ESPANA MD Diagnosis: Last Documented On 2 10:21AM By Autumn Bloom ; [facility], [facility] amLODIPine Besylate 5 MG Oral Tablet 09/04/2021 Prov ider: Diagnosis: Last Documented On 2 10:21AM By Autumn Bloom ; [facility], [facility] Advair Diskus 500-50 MCG/ACT Inhalation Aerosol Powder Breath Activated 08/19/2021 Provider: Diagnosis: Last Documented On 2 10:21AM By Autumn Bloom ; [facility], [facility] Medications Administered Includes: Administered Medications [...] Last Documented On 3 9:51AM ; [facility] Omnicef Allergy 03/30/2019 Active Last Documented On 3 9:51AM ; [facility] metal Allergy 09/10/2020 Active Last Documented On 3 9:51AM ; [facility] Latex Allergy 07/01/2015 Active Last Documented On 3 9:51AM ; [facility] Biaxin Allergy 07/01/2015 Active Last Documented On 3 9:51AM ; [facility] Augmentin Allergy Skin Rashes / Er uption of skin, Hives / Urticaria 07/01/2015 Active Last Documented On 3 9:51AM ; [facility] adhesive tape Allergy 03/30/2019 Activ e Last Documented On 3 9:51AM ; [facility] Encounters Encounter Provider Location Date Check-In Time Check-Out Time Diagnosis [place] Injection Elvira Yanez PA-C [facility] 09/08/19 23 10:13AM 10:37AM Insurance Includes: Active Insurance Policies Plan Name Member ID Group # Subscriber Relationship Effect mario Dates 1 - Medicare Part B [facility] [id number] Ebonie Blue Self 04/08/19 09 - Unknown 2 - [employer] [id number] Ebonie Blue Self 2 - Unknown Clinical Notes Includes: Clinical Notes from this encounter No Clinical Notes Recorded
--- OUTSIDE RECORDS SUMMARY | 2024-05-17 23:25 | XMS_ITS | Clinical Summary ---
Author Organization [facility] , [facility] Address [address] [place] [address] Phone Care Team Providers Care Loading Unit Operator Name Role Phone JOVI JIMENSE, АНДРЕЙ Primary Care Provider [phone] Tony JIMENES, Cristiano [place] Unavailable [phone] Reason for Visit and Chief Complaint [place] Injection Problems Includes: Problems addressed during this encounter and other active Problems All Visits Onset Date Resolved Date Provider Condition S tatus Joint Pain, Localized in the Right Shoulder 09/21/2021 Morris Madrid PA-C Active Last Documented On 2 10:31AM ; [facility], [facility] Joint Pain in Both Knees 09/16/2021 Elvira frausto PA-C Active Last Documented On 2 1:34PM ; [facility] Plan of Treatment No Plan [...] On 2 2:59PM By Greg Steele ; [facility], [facility] Dicyclomine HCl 10 MG Oral Capsule 11/19/2021 Provid er: Diagnosis: Last Documented On 2 2:59PM By Greg Steele ; [facility] Levocetirizine Dihydrochloride 5 MG Oral Tablet 2021 Provider: Diagnosis: Last Documented On 2 2:59PM By Greg Steele ; [facility] DULoxetine HCl 60 MG Oral Ca psule Delayed Release Particles 11/06/2021 Provider: АНДРЕЙ ESPANA MD Diagnosis: Last Documented On 2 2:59PM By Greg Steele ; [facility] rOPINIRole HCl 1 MG Oral Tablet 10/21/2021 Provider: АНДРЕЙ ESPANA MD Diagnosis: Last Documented On 2 2:59PM By Greg Steele ; [facility] Warfarin Sodium 7.5 MG Oral Tablet 10/14/2021 Provid er: АНДРЕЙ ESPANA MD Diagnosis: Last Documented On 2 2:59PM By Greg Steele ; [facility] Omeprazole 20 MG Oral Capsule Delayed Release 10/15/19 Provider: АНДРЕЙ ESPANA MD Diagnosis: Last Documented On 2 2:59PM By Greg Steele ; [facility] Levocetirizine Dihydrochloride 5 MG Oral Tablet 2021 Provider: Diagnosis: Last Documented On 2 2:59PM By Greg Steele ; [facility] Azelastine HCl 137 MCG/SPRAY Nasal Solution 10/13/2021 Provider: Diagnosis: Last Documented On 2 2:59PM By Greg Steele ; [facility] Oxybutynin Chloride 5 MG Oral Tablet 10/09/2021 Prov ider: Diagnosis: Last Documented On 2 2:59PM By Greg Steele ; [facility] Atorvastatin Calcium 20 MG Oral Tablet 10/09/2021 Pr ovider: Diagnosis: Last Documented On 2 2:59PM By Greg Steele ; [facility] Montelukast Sodium 10 MG Oral Tablet 09/28/2021 Prov ider: Diagnosis: Last Documented On 2 2:59PM By Greg Steele ; [facility] Amitriptyline HCl 50 MG Oral Tablet 09/22/2021 Provi benjy: АНДРЕЙ ESPANA MD Diagnosis: Last Documented On 2 2:59PM By Greg Steele ; [facility], [facility] traMADol HCl 50 MG Oral Tablet 09/11/2021 Provider: АНДРЕЙ ESPANA MD Diagnosis: Last Documented On 2 10:21AM By Autumn Bloom ; [facility] Metaxalone 800 MG Oral Tablet 09/11/2021 Provider: Sandra Lenz APRN Diagnosis: Last Documented On 2 10:21AM By Autumn Bloom ; [facility], [facility] Gabapentin 300 MG Oral Capsule 09/10/2021 Provider: АНДРЕЙ ESPANA MD Diagnosis: Last Documented On 2 10:21AM By Autumn Bloom ; [facility], [facility] amLODIPine Besylate 5 MG Oral Tablet 09/04/2021 Prov ider: Diagnosis: Last Documented On 2 10:21AM By Autumn Bloom ; [facility], [facility] Advair Diskus 500-50 MCG/ACT Inhalation Aerosol Powder Breath Activated 08/19/2021 Provider: Diagnosis: Last Documented On 2 10:21AM By Autumn Bloom ; [facility] Medications Administered Includes: Administered Medications from this [...] ctive Last Documented On 3 9:51AM ; [facility] Omnicef Allergy 03/30/2019 Active Last Documented On 3 9:51AM ; [facility] metal Allergy 09/10/2020 Active Last Documented On 3 9:51AM ; [facility] Latex Allergy 07/01/2015 Active Last Documented On 3 9:51AM ; [facility] Biaxin Allergy 07/01/2015 Active Last Documented On 3 9:51AM ; [facility] Augmentin Allergy Skin Rashes / Er uption of skin, Hives / Urticaria 07/01/2015 Active Last Documented On 3 9:51AM ; [facility] adhesive tape Allergy 03/30/2019 Activ e Last Documented On 3 9:51AM ; [facility] Encounters Encounter Provider Location Date Check-In Time Check-Out Time Diagnosis [place] Injection Elvira Yanez PA-C [facility] 09/15/19 23 9:42AM 10:06AM Insurance Includes: Active Insurance Policies Plan Name Member ID Group # Subscriber Relationship Effect mario Dates 1 - Medicare Part B [facility] [id number] Ebonie Blue Self 04/08/19 09 - Unknown 2 - [employer] [id number] Ebonie Blue Self 2 - Unknown Clinical Notes Includes: Clinical Notes from this encounter No Clinical Notes Recorded
--- OUTSIDE RECORDS SUMMARY | 2024-05-17 23:25 | XMS_ITS | Clinical Summary ---
Author Organization [facility] , [facility] Address [address] [place] [address] Phone Care Team Providers Care Wrapper And Preserver Name Role Phone АНДРЕЙ ESPANA MD Primary Care Provider [phone] Tony JIMENES, Cristiano [place] Unavailable [phone] [...] Active Last Documented On 2 10:31AM ; [facility] Joint Pain in Both Knees 09/16/2021 Elvira frausto PA-C Active Last Documented On 2 1:34PM ; [facility] Plan of Treatment SURGICAL PLAN: [...] Documented On 01/15/2022 9:12AM ; [facility], [facility] DO YOU SEE CARDIOLOGY? YES, PATIENT STATES THAT THEY ARE IN [place] DO YOU SEE A HULL SORTER? NO ARE YOU A DIABETIC? NO IF [...] Documented On 01/15/2022 9:12AM ; [facility], [facility] Pending Tests Order Diagnosis Results Due Ordering Cara gomez Radiology - MRI MRI Shoulder 10/07/21 Rock Toribio MD Last Documented On 2 11:09AM ; [facility], [facility] Instructions to patient Intervention and counseling on cessation of tobacco use Last Documented On 2 9:05AM ; [facility], [facility] Lose weight Last Documented On 2 9:05AM ; [facility] Assessments Includes: Assessments from this encounter Findings Right shoulder high grade partial thickness rotator cuff tear, with effusion - Last Documented On 01/15/2022 9:12AM ; [facility], [facility] Instructions Includes: Instructions from this encounter Instructions to patient Intervention and counseling on cessation of tobacco use Last Documented On 2 9:05AM ; [facility], [facility] Lose weight Last Documented On 2 9:05AM ; [facility], [facility] Medical Equipment - Implanted Devices Includes: Current Devices No Medical Equipment Recorded Medications Includes: Medications discussed during this encounter and other current Medications Current Medications (continue as prescribed) rOPINIRole HCl 1 MG Oral Tablet 11/19/2021 Provider: АНДРЕЙ ESPANA MD Diagnosis: Last Documented On 2 2:59PM By Greg Steele ; [facility], [facility] Dicyclomine HCl 10 MG Oral Capsule 11/19/2021 Provid er: Diagnosis: Last Documented On 2 2:59PM By Greg Steele ; [facility], [facility] Levocetirizine Dihydrochloride 5 MG Oral Tablet 2021 Provider: Diagnosis: Last Documented On 2 2:59PM By Greg Steele ; [facility] DULoxetine HCl 60 MG Oral Ca psule Delayed Release Particles 11/06/2021 Provider: АНДРЕЙ ESPANA MD Diagnosis: Last Documented On 2 2:59PM By Greg Steele ; [facility], [facility] rOPINIRole HCl 1 MG Oral Tablet 10/21/2021 Provider: АНДРЕЙ ESPANA MD Diagnosis: Last Documented On 2 2:59PM By Greg Steele ; [facility], [facility] Warfarin Sodium 7.5 MG Oral Tablet 10/14/2021 Provid er: АНДРЕЙ ESPANA MD Diagnosis: Last Documented On 2 2:59PM By Greg Steele ; [facility], [facility] Omeprazole 20 MG Oral Capsule Delayed Release 10/15/19 22 Provider: АНДРЕЙ ESPANA MD Diagnosis: Last Documented On 2 2:59PM By Greg Steele ; [facility] Levocetirizine Dihydrochloride 5 MG Oral Tablet 2021 Provider: Diagnosis: Last Documented On 2 2:59PM By Greg Steele ; [facility] Azelastine HCl 137 MCG/SPRAY Nasal Solution 10/13/2021 Provider: Diagnosis: Last Documented On 2 2:59PM By Greg Steele ; [facility] Oxybutynin Chloride 5 MG Oral Tablet 10/09/2021 Prov ider: Diagnosis: Last Documented On 2 2:59PM By Greg Steele ; [facility] Atorvastatin Calcium 20 MG Oral Tablet 10/09/2021 Pr ovider: Diagnosis: Last Documented On 2 2:59PM By Greg Steele ; [facility] Montelukast Sodium 10 MG Oral Tablet 09/28/2021 Prov ider: Diagnosis: Last Documented On 2 2:59PM By Greg Steele ; [facility] Amitriptyline HCl 50 MG Oral Tablet 09/22/2021 Provi benjy: АНДРЕЙ ESPANA MD Diagnosis: Last Documented On 2 2:59PM By Greg Steele ; [facility] traMADol HCl 50 MG Oral Tablet 09/11/2021 Provider: АНДРЕЙ ESPANA MD Diagnosis: Last Documented On 2 10:21AM By Autumn Bloom ; [facility], [facility] Metaxalone 800 MG Oral Tablet 09/11/2021 Provider: Sandra Lenz APRN Diagnosis: Last Documented On 10:21AM By Autumn Bloom ; [facility], [facility] Gabapentin 300 MG Oral Capsule 09/10/2021 Provider: АНДРЕЙ ESPANA MD Diagnosis: Last Documented On 2 10:21AM By Autumn Bloom ; [facility], [facility] amLODIPine Besylate 5 MG Oral Tablet 09/04/2021 Prov ider: Diagnosis: Last Documented On 2 10:21AM By Autumn Bloom ; [facility], [facility] Advair Diskus 500-50 MCG/ACT Inhalation Aerosol Powder Breath Activated 08/19/2021 Provider: Diagnosis: Last Documented On 10:21AM By Autumn Bloom ; [facility], [facility] Past Medications on file Amitriptyline HCl 25 MG Oral Tablet 08/26/2021 - 09/25/2021 Provider: АНДРЕЙ Asencio Diagnosis: Last Documented On 2 12:46PM By Lux Tabares ; [facility], [facility] Azelastine HCl 0.1% Nasal Solution 08/26/2021 - 2021 Provider: Diagnosis: Last Documented On 2 12:47PM By Lux Tabares ; [facility], [facility] Fluticasone Furoate 50 MCG/A CT Inhalation Aerosol Powder Breath Activated 08/26/2021 - 09/25/2021 Provider: АНДРЕЙ Asencio Diagnosis: Last Documented On 2 12:47PM By Lux Tabares ; [facility], [facility] Levocetirizine Dihydrochloride 5 MG Oral Tablet 08/26/2021 - 09/25/2021 Provider: Diagnosis: Last Documented On 12:47PM By Lux Tabares ; [facility], [facility] Warfarin Sodium 5 MG Oral Tablet 08/26/2021 - 09/24/19 Provider: АНДРЕЙ ESPANA MD Diagnosis: Last Documented On 12:47PM By Lux Tabares ; [facility], [facility] rOPINIRole HCl 0.25 MG Oral Tablet 08/26/2021 - 2021 Provider: Diagnosis: Last Documented On 12:46PM By Lux Tabares ; [facility], [facility] Oxybutynin Chloride 5 MG Oral Tablet 08/26/2021 - 09/07 Provider: Diagnosis: Last Documented On 2 12:46PM By Lux Tabares ; [facility], [facility] Omeprazole 20 MG Oral Ta blet Delayed Release Disintegrating 08/26/2021 - 09/25/2021 Provider: LILIA ESPANA MD Diagnosis: Last Documented On 2 12:46PM By Lux Tabares ; [facility], [facility] Montelukast Sodium 10 MG Ora l Tablet 08/26/2021 - 09/25/2021 Provider: АНДРЕЙ Asencio Diagnosis: Last Documented On 2 12:46PM By Lux Tabares ; [facility], [facility] DULoxetine HCl 60 MG Oral Ca psule Delayed Release Particles 08/26/2021 - 09/25/2021 Provider: АНДРЕЙ MENDOZA MD Diagnosis: Last Documented On 2 12:46PM By Lux Tabares ; [facility], [facility] Medications Administered Includes: Administered Medications from this encounter No Administered Medications Recorded Vital Signs Includes: Vital Signs from this encounter Vital Name 12/28/2021 09:13A Blood Pressure Sitting (mmHg) 139/84 Pulse Rate-Sitting (bpm) 87 Height (in) 65 Weight (lb) 201 Body Mass Index (kg/m2) 33.4 Body Surface Area (m2) 2.0 Note: cb Last Documented: On 12/28/2021 9:13AM ; [facility], [facility] Results Includes: Results discussed during this [...] Documented On 2 9:05AM ; [facility], [facility] Not a current smoker. 10/09/2021 Last Documented On 2 9:05AM ; [facility] Not a smoker 09/21/2021 Last Documented On 2 9:05AM ; [facility] Non-smoker 09/16/2021 Last Documented On 2 9:05AM ; [facility] Former smoker 08/26/2021 Last Documented On 2 9:05AM ; [facility], [facility] Has high school diploma 08/26/2021 Last Documented On 2 9:05AM ; [facility] Never drank alcohol 08/26/2021 Last Documented On 2 9:05AM ; [facility] Never used drugs 08/26/2021 Last Documented On 2 9:05AM ; [facility], [facility] Exercising regularly 07/27/2021 Last Documented On 2 9:05AM ; [facility], [facility] No recent change in diet fats ~ 07/28/19 Last Documented On 2 9:05AM ; [facility], [facility] Not a current smoker. 07/27/2021 Last Documented On 2 9:05AM ; [facility] Not using alcohol 07/27/2021 Last Documented On 2 9:05AM ; [facility], [facility] Not using drugs 07/27/2021 Last Documented On 2 9:05AM ; [facility], [facility] Smoking status : Former smoker 0 Last Documented On 2 9:05AM ; [facility], [facility] Caffeine use daily ~ 03/30/2019 Last Documented On 2 9:05AM ; [facility], [facility] Tobacco use 04/03/2015 Last Documented On 2 9:05AM ; [facility], [facility] Current smoker 04/03/2015 Last Documented On 2 9:05AM ; [facility], [facility] Procedures and Surgical History Includes: Procedures from this encounter Procedures Code Diagnosis Performing Provider Service L ocation Service Date intervention and counseling on cessation of tobacco use 4000F Last Documented On 2 9:05AM ; [facility], [facility] use of tobacco assessment performed 1000F Last Documented On 2 9:05AM ; [facility], [facility] patient not screened for future fall risk 3288F Last Documented On 2 9:05AM ; [facility], [facility] patient screened for future fall risk: documentation of any fall with injury in past year 1100F Last Documented On 2 9:05AM ; [facility], [facility] follow-up visit in one month with PCP fo r elevated BP Last Documented On 2 9:05AM ; [facility], [facility] follow-up visit in one month Last Documented On 2 9:14AM ; [facility] referral to physician Last Documented On 2 9:05AM ; [facility] Surgical History Last Updated History of appendectomy 04/03/2015 Last Documented On 2 9:05AM ; [facility], [facility] History of back surgery 04/03/2015 Last Documented On 2 9:05AM ; [facility], [facility] History of hysterectomy 04/03/2015 Last Documented On 2 9:05AM ; [facility] Medical History Includes: Medical History addressed during this encounter Description Last Updated Anemia 09/10/2020 Last Documented On 2 9:05AM ; [facility] Appendectomy 09/10/2020 Last Documented On 2 9:05AM ; [facility] Arthritis 09/10/2020 Last Documented On 2 9:05AM ; [facility] Back surgery 09/10/2020 Last Documented On 2 9:05AM ; [facility] Heartburn / Acid Reflux 09/10/2020 Last Documented On 2 9:05AM ; [facility] History of asthma 09/10/2020 Last Documented On 2 9:05AM ; [facility] History of Blood Clots 09/10/2020 Last Documented On 2 9:05AM ; [facility], [facility] History of Emphysema 09/10/2020 Last Documented On 2 9:05AM ; [facility], [facility] History of Gallbladder 09/10/2020 Last Documented On 2 9:05AM ; [facility], [facility] History of osteoporosis 09/10/2020 Last Documented On 2 9:05AM ; [facility] Hypertension 09/10/2020 Last Documented On 2 9:05AM ; [facility] Hysterectomy 09/10/2020 Last Documented On 2 9:05AM ; [facility], [facility] Recent immunization for flu 2019 021 Last Documented On 2 9:05AM ; [facility], [facility] Recent immunization for pneumococcal pne umonia 201909/10/2020 Last Documented On 2 9:05AM ; [facility] Carpal Tunnel/ Sinus ~Ovary Removed ~Removal of Scar Tissue- Abdominal ~Anemia ~Blood Clots ~High Cholesteral ~sleep apena ~Acid Reflux ~Blood Transfusion 03/30/2019 Last Documented On 2 9:05AM ; [facility] Liver disease 03/30/2019 Last Documented On 2 9:05AM ; [facility], [facility] A recent injection orthovisc 03/30/2019 Last Documented On 2 9:05AM ; [facility] Arthritic joint problems 04/03/2015 Last Documented On 2 9:05AM ; [facility] Gallbladder disease 04/03/2015 Last Documented On 2 9:05AM ; [facility] History of depression 04/03/2015 Last Documented On 2 9:05AM ; [facility] History of gastric ulcer 04/03/2015 Last Documented On 2 9:05AM ; [facility] Intermittent hypertension 04/03/2015 Last Documented On 2 9:05AM ; [facility] Family History Includes: Family History addressed during this encounter Description Last Updated Diabetes mellitus 09/10/2020 Last Documented On 2 9:05AM ; [facility], [facility] Family history of osteoporosis 1 Last Documented On 2 9:05AM ; [facility] Stroke / Seizures 09/10/2020 Last Documented On 2 9:05AM ; [facility] Stroke- Father/brother 03/30/2019 Last Documented On 2 9:05AM ; [facility] Family history of cancer mother 03/30/19 20 Last Documented On 2 9:05AM ; [facility] Family history of diabetes mellitus moth er/brother/daughter ~ 03/30/2019 Last Documented On 2 9:05AM ; [facility] Family history of heart disease father 0 03/30/2019 Last Documented On 2 9:05AM ; [facility] Family history of hypertension 0 Last Documented On 2 9:05AM ; [facility] Family history of thromboembolic disease 03/30/2019 Last Documented On 2 9:05AM ; [facility] Maternal history of diabetes mellitus Br other 04/03/2015 Last Documented On 2 9:05AM ; [facility] Maternal history of family history of ca ncer 04/03/2015 Last Documented On 2 9:05AM ; [facility] Maternal history of thromboembolic disea se 04/03/2015 Last Documented On 2 9:05AM ; [facility] Paternal history of family history of he art disease 04/03/2015 Last Documented On 2 9:05AM ; [facility] Paternal history of hypertension Brother 04/03/2015 Last Documented On 2 9:05AM ; [facility], [facility] Review of Systems Includes: Review of Systems [...] ctive Last Documented On 3 9:51AM ; [facility] Omnicef Allergy 03/30/2019 Active Last Documented On 3 9:51AM ; [facility] metal Allergy 09/10/2020 Active Last Documented On 3 9:51AM ; [facility] Latex Allergy 07/01/2015 Active Last Documented On 3 9:51AM ; [facility] Biaxin Allergy 07/01/2015 Active Last Documented On 3 9:51AM ; [facility] Augmentin Allergy Skin Rashes / Er uption of skin, Hives / Urticaria 07/01/2015 Active Last Documented On 3 9:51AM ; [facility] adhesive tape Allergy 03/30/2019 Activ e Last Documented On 3 9:51AM ; [facility], [facility] Encounters Encounter Provider Location Date Check-In Time Check- Out Time Diagnosis Follow Up Rock Toribio MD [facility] 2 9:07AM 10:06AM Insurance Includes: Active Insurance Policies Plan Name Member ID Group # Subscriber Relationship Effect mario Dates 1 - Medicare Part B [facility] [id number] Ebonie Martell Su Self 04/08/19 09 - Unknown 2 - [place] [id number] Ebonie Martell Su Self 2 - Unknown Clinical Notes Includes: Clinical Notes from this encounter No Clinical Notes Recorded
== END 2024-05-17 23:59 | disposition home or self-care (01) ==
LOC: SC.PAIN 13:07
PROVIDERS: PCP Nurse Practitioner Family; Visit Provider Nurse Practitioner Family
DX: M25.561 Pain in right knee (principal); M25.562 Pain in left knee; G89.29 Other chronic pain; M47.812 Spondylosis without myelopathy or radiculopathy, cervical region; M47.816 Spondylosis without myelopathy or radiculopathy, lumbar region; M96.1 Postlaminectomy syndrome, not elsewhere classified
CPT/HCPCS: 99212; G0463

== ENCOUNTER 2024-06-28 13:26 | Outpatient (POV) | payer MEDICARE, OTHER, SELFPAY ==
--- OUTSIDE RECORDS SUMMARY | 2024-06-28 13:29 | XMS_ITS | Data Portability ---
Author Organization [place] J[place] Duque JACOB CLOSED Address [address] [facility] [address] [place] [address] Assessment Encounter Date Assessment Date Assessment LastModified by Organization Details LastModified Time 01/05/2022 01/05/2022 A 66 year old female [email or web address] Not available 01/05/2022 14:18:43 Plan of Treatment Reminders Order Date Submit Date Provider Last Modified By Organization Details Last Modified Time Details Appointments None recorded. Lab ccp (cyclic citrullinat ed peptide) iga+igg, serum 2021 [facility], [address] [place] [address], [id number], 18:26:55 ESR (erythrocyt e sedimentati on rate), blood 2021 [facility], [address] [place] [address], [id number], 16:40:26 C reactive protein, QN, serum or plasma 2021 [facility], [address] [place] [address], [id number], 15:36:19 rf (rheumatoid factor), serum 2021 [facility], [address] [place] [address], [id number], 15:36:17 CK (creatine kinase), total, serum 2021 [facility], [address] [place] [address], [id number], 15:36:20 CLAIRE (antinuclea r antibodies) panel, serum 2021 [facility], [address] [place] [address], [id number], 19:41:43 Referral None recorded. Procedures None recorded. Surgeries None recorded. Imaging XR, joint, multiple, 1 view 2021 [facility], [address] [place] [address], [id number], 15:04:57 Medication Orders None recorded. Patient TargetsNo targets recorded. Patient Instructions Encounter Date Encounter Id Patient Instructions Last Modified By Organization Details Last Modified Time 01/05/2022 [id number] medical record request* - Please fax us her MRI right shoulder report for our review. [email or web address] Not available 01/12/2022 08:12:31 Joint symptoms mostly mechanical related to degenerative joint disease. Has advanced CMC and hand osteoarthritis. She is getting CMC/first compartment of left wrist injection per [facility] hand surgery. Has left more than right knee osteoarthritis under care of [facility] orthopedic and getting injection for that. She has right shoulder aching pain, failed injection and physical therapy. MRI right shoulder per [facility] note at indicated partial rotator cuff tear [...] assistance. Recommend patient to continue follow-up with [facility] as it relate to the right shoulder rotator cuff/DJD management. We will proceed with illustrated plan of care for work-up completion risk stratification from rheumatology perspective. We will retrieve the MRI report done at [facility] for our review. Age-appropriate cancer screening cardiovascular [...] their kind discretion. All her question answered. [facility] orthopedic office note reviewed. RTC in 8 [...] <10.0 IU/mL 0.0-13 .9 normal Not Available [facility] [address] [place] [address], [id number], 01/05/2022 15:36:17 01/06/20 22 01/05/2022 C REACT PALMER PROTE IN C reactive protein 0.78 mg/dL 0.00-0 .49 high Not Available [facility] [address] [place] [address], [id number], 01/05/2022 15:36:19 01/06/20 22 01/05/2022 CREAT INE KINAS E creatine kinase 110 U/L 0-169 normal Not Available [facility] [address] [place] [address], [id number], 01/05/2022 15:36:20 01/06/20 22 01/05/2022 ESR, AUTOM ATED ESR, automated 23 mm 0-29 normal Not Available [facility] [address] [place] [address], [id number], 01/05/2022 16:40:26 01/06/20 22 01/06/2022 ANTI- CCP anti-ccp <16 units normal Refer ence Range Negat palmer: <20 Weak Posit palmer: 20-39 Moder ate Posit palmer: 40-59 Stron g Posit palmer: >59 TEST PERFO RMED AT: [facility] [address] [place] [address] KINSEY Kemp MD Not Available [facility] [address] [place] [address], [id number], 01/06/2022 18:26:55 01/06/20 22 01/07/2022 CLAIRE W/ [...] Patte rns (http s://d [email or web address] g/[email or web address]. 1515/ [facility]- 2017- 0052) For addit ional infor brigitte hinojosa e refer to http: //[facility] liliam villasenor.Que stDia gnost ics.c om/fa q/FAQ 177 (This link is being provi ded for infor matio nal/ educa sylwia l purpo ses only. ) TEST PERFO RMED AT: [facility] [address] [place] [address] KINSEY Kemp MD Not Available [facility] [address] [place] [address], [id number], 01/07/2022 19:41:43 01/06/20 22 01/05/2022 XR, joint , multi ple, 1 view [facility] [address] [place] [id number] [place] [address] Syd kennedy Name: EBONIE kennedy : 89 [...] Jovi coronado MD on 2021 2:59 PM [email or web address] [facility] [address] [facility], [place], [address], 01/06/2022 09:17:33 01/13/20 22 09/30/2021 MRI, shoul benjy, w/o contr ast No observ ation record ed. [email or web address] [facility] (Med Record) [address], [place], [address], 01/13/2022 12:58:37 Result Notes None recorded. Procedures Surgical History Date Name Laterality Status Provider Name and Address Organization Details Recorded Time 5 Carpal tunnel surgery completed Lisa Steele [facility] 01/05/2022 13:42:24 Imaging Results Imaging Date Name Status LastModified by Organiz ation Details LastModified Time 01/05/2022 XR, joint, multiple, 1 view completed [email or web address] [facility] [address] [place], [address], 01/06/2022 09:17:33 09/30/2021 MRI, shoulder, w/o contrast completed [id number] (Med Record) [address], [place], [address], 01/13/2022 12:58:37 Procedure Notes None recorded. Medical Equipment None Reported. Allergies Allergen ID Allergen Name Allergen Category Reaction Reaction Severity Criticality Documentation Date Start Date Code Code System Note Provider Name and Address Organization Details Recorded Time 784625 latex environme nt,medica tion rash mild low 01/05/2022 46579 91 RxNorm Lisa Steele [facility] 2 13:40:00 434371 adhesive environme nt,medica tion rash mild low 01/05/2022 57402 UNK Lisa Steele [facility] 2 13:40:20 296982 Product containin g penicilli n (product) medicatio n rash mild low 01/05/2022 11161 8001 SNOMED Lisa Steele [facility] 2 13:40:51 540560 Substance with sulfonami de structure and antibacte rial mechanism of action (substanc e) medicatio n rash mild low 01/05/2022 28573 [facility] Steele [facility] 2 13:41:16 Medications Name Sig Start Date [...] Updated DateTime 2 165.1 cm 33.9 kg/m2 83700.8 4 g 18 /min 78 /min 96 % 96 % 126 mm[Hg] 74 mm[Hg] Lisa Steele [facility] 13:44:18 Social History Question Answer Notes LastModified by Organizat ion Details LastModified Time Tobacco Smoking Status Current Every Day Smoker Lisa Steele [facility] 01/05/2022 13:41:53 What Was The Date Of Your Most Recent Tobacco Screening? 01/05/2022 [email or web address] Information not available 01/05/2022 How Much Tobacco Do You Smoke? 1 PPD Information not available 01/05/2022 Have You Recently Traveled Abroad? No Information not available 01/05/2022 Sex: Unknown Functional Status Question Answer Note LastModified by Organizat ion Details LastModified Time Do you use any illicit or recreational drugs? No Information not available 01/05/2022 What is your level of alcohol consumption? Occasional [email or web address] Information not available 01/05/2022 Mental Status None recorded. Family History Nothing Reported. Medical History No medical history recorded. Gynecological HistoryNo gynecological history recorded. Obstetrics History GPAL:G 0 P 0 0 0 0 Past Encounters Encounter ID Performer Location Encounter Start Date Encounter Closed Date Diagnosis/Indication Diagnosis SNOMED-CT Code Diagnosis ICD10 Code Diagnosis Note [id number] [facility] [address] [place] [address] 01/05/2022 13:12:01 01/06/2022 10:15:53 Pain of multiple joints 56731645 M25.50 Rotator cu ff arthropathy of right shoulder 8171072572 6996999 M25.811 Osteoarthr itis of joint of bilateral hands 2543241911 40747 M19.041 M19.042 Osteoarthr osis of the carpometacarpal joint of the thumb 17678616 M18.9 Bilateral osteoarthritis of knees 5649483413 71224 M17.0 Health Concerns Section Related Observation LastModified by Organization Detai ls LastModified Time None Recorded Concern Status LastModified by Organization Details LastModified Time None Recorded Advance Directives Directive None Recorded Payers Insurance Date Sequence Insurance Name Policy Number Policy Titus Covered Member ID Titus Member ID Guarantor Name 01/05/2022 1 [employer] PREFERRED - [facility] - [place] Ebonie Su [id number] Ebonie Martell Su 01/05/2022 2 [employer] - MEDICARE SELECT - PLAN F (MEDICARE SUPPLEMENT) Ebonie Blue [id number] Ebonie Martell Su 01/05/2022 1 [place] Ebonie Moura Su [id number] Ebonie Moura Su Notes Date Note Type Note Provider Name and Address Organization Details Recorded Time 01/05/2022 text/html A 66-year-old fe male here with her with history of fibromyalgia on duloxetine, gabapentin, amitriptyline, osteoarthritis hands, CMC osteoarthritis, right shoulder rotator cuff disease, under care of [facility] with partial tear, BGO recommended surgery as she failed PT and [...] jaw claudication or headache. TAMIA NEWELL MD [facility] [place], [address], [facility] 01/06/2022 12:55:20 OBGyn Episode No OBEpisode recorded.
--- NOTE | 2024-06-28 13:43 | A.OFFVIS_ITS ---
[facility] Disclaimer: The information contained in this section may have been updated after the patient was seen, as this information can be updated by other users. 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 Granulomatous lung disease Diastolic dysfunction HLD (hyperlipidemia) Fatigue UTI (urinary tract infection) HTN (hypertension) COPD (chronic obstructive pulmonary disease) Pulmonary embolism DVT (deep venous thrombosis) Eustachian tube dysfunction Allergies History of sinus problem Fibromyalgia Arthritis Migraines Anxiety and depression UTI (urinary tract infection) Kidney stones Hiatal hernia GERD (gastroesophageal reflux disease) Gallbladder disease Pulmonary embolism COPD (chronic obstructive pulmonary disease) Lung disease Asthma Clotting disorder Hypertension DVT (deep venous thrombosis) Fatigue HLD (hyperlipidemia) Abnormal EKG SOB (shortness of breath) Chest pain Surgical History Previous back surgery x2 H/O sinus surgery H/O total hysterectomy History of esophagogastroduodenoscopy (EGD) History of colonoscopy Hx of cholecystectomy Hx of appendectomy History of tonsillectomy History of bilateral carpal tunnel release H/O left breast biopsy H/O cardiac catheterization Family History Other Family history of alcoholism Family history of asthma Family history of bleeding disorder Family history of cancer Family history of diabetes mellitus (DM) Family history of hyperlipidemia Family history of hypertension Family history of myocardial infarction Family history of stroke Family history of substance abuse Social History Smoking Status: Never smoker second hand exposure: No alcohol intake: current alcohol intake frequency: holidays/special occasions only substance use type: denies use current occupational status: other Travel in the last 8 weeks?: None household members: spouse housing: house current occupational exposures/hazards: Yes caffeine: Yes Have you lived/traveled outside US in past 30 days?: No Contact w/someone who lives/traveled outside US past 30 days?: No Exposure to someone with infectious disease in past 14 days?: No Do you have a fever (greater than 100.4 F or 38 C)?: No Have you tested positive for COVID-19?: No Exposed to someone with COVID-19 in past 14 days?: No Do you have a sore throat?: No Do you have a cough?: No Do you have any weakness?: No Do you have any diarrhea?: No Are you experiencing any unusual bleeding?: No Do you have any muscle aches/pain?: No Do you have any abdominal pain?: No Are you experiencing loss of taste or smell?: No PM Subjective & Objective Subjective Subjective:: Patient is a pleasant 68-year-old female who presents today for 6-week follow- up. Today she rates her pain a 2 out of 10. She does state the pain is still in her left knee primarily however feels like it is still working from her last injection that she had in April. Patient denies any new falls or injuries. Patient is prescribed gabapentin from an outside provider and compounded cream from our office. Her Oneal has been reviewed. Review of Systems: General: No recent weight changes, no fever, no sleep disturbances Respiratory: No cough, no shortness of air, no recurring pulmonary infections Cardiovascular/peripheral vascular: No chest pain, no palpitations, no edema, no shortness of breath Gastrointestinal: No new onset incontinence, normal bowel movements reported Genitourinary: No new onset incontinence Musculoskeletal: Left knee pain Psychiatric: [Normal mood/affect] Neurological: [Denies weakness in extremities], [denies balance issues] Pain at rest (0-10 scale): 2 Objective Objective:: Physical Exam: General: Alert and oriented x3, no acute distress, pleasant and cooperative Lungs: Respirations even and unlabored, symmetrical chest expansion Eyes: PERRL Musculoskeletal: Flexion and extension of left knee somewhat guarded secondary to pain, [antalgic gait noted] Neurological: Speech clear, no gross sensory deficit Has patient had previous pain injection?: No Conservative treatment options previously tried: Home exercise plan Length of treatment: Longer than 12 weeks Meds Home Medications and Allergies Home Medications ?Medication ?Instructions ?Recorded ?Confirmed ?Type cholecalciferol (vitamin D3) 25 4,000 unit PO DAILY Supplement 05/24/17 05/17/24 History mcg (1,000 unit) capsule duloxetine 60 mg capsule,delayed 60 mg PO BID Depression 05/24/17 05/17/24 History release fluticasone propionate 50 9.9 ml intranasal DAILY allergies 05/24/17 05/17/24 History mcg/actuation nasal spray,suspension montelukast 10 mg tablet 10 mg PO PM Asthma 05/24/17 05/17/24 History aspirin 81 mg tablet,delayed 81 mg PO HS Blood thinner 12/19/18 05/17/24 History release levocetirizine 5 mg tablet 5 mg PO HS Allergy symptoms 12/19/18 05/17/24 History ondansetron 4 mg disintegrating 4 mg PO Q8HP PRN Nausea ##20 02/07/19 05/17/24 Rx tablet albuterol sulfate 90 mcg/actuation 2 puffs inhalation Q4HP PRN 04/10/19 05/17/24 History aerosol inhaler Shortness Of Breath Or Wheezing fluticasone 500 mcg-salmeterol 50 1 puff inhalation BID COPD 03/25/20 05/17/24 H istory mcg/dose blistr powdr for inhalation magnesium 250 mg tablet 250 mg PO DAILY Supplement 04/30/20 05/17/24 History gabapentin 300 mg capsule 300 mg PO TID nerve pain 04/28/21 05/17/24 History warfarin 5 mg tablet 7.5 mg PO DAILY BLOOD CLOTS 04/29/21 05/17/24 History amitriptyline 50 mg tablet 50 mg PO HS MOOD 04/29/22 05/17/24 History ropinirole 1 mg tablet 1 mg PO HS Pain 04/29/22 05/17/24 History amlodipine 5 mg tablet See Rx Instructions .Route 10/17/23 05/17/24 Rx .COMPLEX #90 tabs omeprazole 20 mg capsule,delayed 20 mg PO DAILY GERD #90 caps 01/24/24 05/17/24 Rx release buspirone 10 mg tablet 10 mg PO DAILY 05/07/24 05/17/24 History pravastatin 20 mg tablet 20 mg PO DAILY 05/07/24 05/17/24 History New Prescriptions to Start Prescriptions: Allergies Allergy/AdvReac Type Severity Reaction Status Date / Time Sulfa (Sulfonamide Allergy Severe Hives Verified 05/07/24 14:53 Antibiotics) adhesive Allergy Unknown S-BLISTERING Verified 05/07/24 14:53 WELTS amoxicillin (From Augmentin) Allergy Unknown Rash Verified 05/07/24 14:53 cefdinir Allergy Unknown I-RASH Verified 05/07/24 14:53 clarithromycin Allergy Unknown I-RASH Verified 05/07/24 14:53 clavulanic acid Allergy Unknown Rash Verified 05/07/24 14:53 codeine Allergy Unknown NA-NAUSEA/V Verified 05/07/24 14:53 OMITING latex Allergy Unknown S-BLISTERING Verified 05/07/24 14:53 WELTS nitrofurantoin (From Allergy Unknown Unknown Verified 05/07/24 14:53 Macrobid) allergy reaction sulfamethoxazole (From Allergy Unknown I-RASH,DIAR Verified 05/07/24 14:53 Bactrim) HEA trimethoprim (From Bactrim) Allergy Unknown I-RASH,DIAR Verified 05/07/24 14:53 MARY JO Assessment and Plan *Assessment and plan (1) Bilateral knee pain: Status: Acute Qualifiers: Chronicity: chronic Qualified Code(s): M25.561 - Pain in right knee; M25.562 - Pain in left knee; G89.29 - Other chronic pain Category: Medical Code(s): M25.561 - Pain in right knee; M25.562 - Pain in left knee Plan Patient is still doing well overall from her last bilateral knee intra-articular injections and does not require any additional injection therapy at this time. Patient will return to clinic in 3 month for reevaluation of symptoms and plan of care. Patient has been instructed to contact the clinic with any concerns before the next appointment. Dr. Walls has reviewed this note and agrees with this plan of care. This note was dictated using voice recognition software and make contain errors or omissions. All injections are used with Lidocaine, Bupivacaine and dexamethasone. Occasionally urine drug screen is needed to verify patient's compliance with our office pain contract. This is ordered based off specific treatments related to chronic pain with the potential to abuse certain medications.
[2024-06-28 14:51] VITALS: BP 100/57; PULSE 62; RESP 14; O2SAT 96; BMI 34.9
== END 2024-06-28 23:59 | disposition home or self-care (01) ==
LOC: SC.PAIN 13:28
PROVIDERS: PCP Nurse Practitioner Family; Visit Provider Nurse Practitioner Family
DX: M25.561 Pain in right knee (principal); M25.562 Pain in left knee; G89.29 Other chronic pain; Z79.01 Long term (current) use of anticoagulants
CPT/HCPCS: 99212; G0463

== ENCOUNTER 2024-07-13 15:02 | Outpatient (CLI) | payer MEDICARE, OTHER, SELFPAY ==
--- OUTSIDE RECORDS SUMMARY | 2024-05-12 17:30 | XMS_ITS ---
Author Organization [facility] Address [address] [place] [address] Care Team Providers Care Cotton Tier Name Role Phone Sherif Ridley Primary Care Provider Sandra Lenz Unavailable [phone] Migration, Provider Unavailable Unavailable Allergies Allergen (clinical [...] Drug Allergy A ctive REASON FOR VISIT [facility] Conversion Encounter Medications Medication SIG (Take, Route, Frequency, Duration) Notes Start Date End Date Status busPIRone HCl 10 MG 1 tab(s) orally 2 times a day for 30 days Active Gabapentin 300 MG 1 cap(s) orally 4 times a day for 30 day(s) 02/28/2024 Active Omeprazole 40 MG 1 cap(s) orally once a day for 30 days Active DULoxetine HCl 60 MG 1 cap(s) orally 2 times a day for 90 days Active Warfarin Sodium 7.5 MG 7.5mg RAPP, TU, WE, SHAHBAZ,SAT. 3.75mg MF orally once a day for 30 days Active Amitriptyline HCl 50 MG 1 tab(s) orally once a day (at bedtime) for 30 days Active rOPINIRole HCl 1 MG 1 tab(s) orally at bedtime for 90 days Active Magnesium 400MG 1 TABLET ONCE A DAY *Please revi ew and pick correct strength-formulat ion from [email or web address] options. If intended option is not shown, discontinue and re-order from Quick Search* Active Flonase Allergy Relief 50 MCG/ACT 2 spray(s) intranasally once a day Active Montelukast Sodium 10 MG 1 tab(s) orally once a day for 30 day(s) Active Xyzal Allergy 24HR 5 MG 1 po qd Active amLODIPine Besylate 2.5 MG 1 tab orally once a day Active Pravastatin Sodium 20 MG 1 tab(s) orally once a day for 90 days Active Xolair 150 MG as [...] review and pick correct strength-formulat ion from [email or web address] options. If intended option is not shown, discontinue and re-order from Quick Search* 01/26/2016 Active Acetaminophen 500 MG 2 tab(s) orally felicia ry 6 hours Active Encounters Encounter Location Date Provider Diagnosis [facility] [address] [place] [address] 05/12/2024 Provider Migration Mixed dyslipidemia E78.2 Assessments Encounter Date Diagnosis (ICD Code) Assessment Notes Treatment Notes Treatment Clinical Notes Section Notes 05/12/2024 Mixed dyslipidemia (ICD-10 - E78.2) Plan Of Treatment Medication Medication Name Sig Start Date Stop Date Notes Pravastatin Sodium 20 MG 1 tab(s) orally once a day for 90 days Next Appt Details Provider Name:Sandra Hassan ce, 08/06/2024 11:30:00 AM, [address], [place], [address], Progress Notes * Ebonie BLUE JDOB:[birth year] (68 yo F)Acc No.[id number]:05/12/2024 Patient: Ebonie ZAPATA Provider: Cara gomez Migration :1955 A ge:68 Y S ex:Female Date:05/12/2024 Address:[address] [place] [address] , [place], [id number] Pcp:Sherif Ridley Subjective: * Chief Complaints: * 1 . [facility] To [facility] Conversion Encounter. * Medical History: * Medications: T aking Acetaminophen 500 MG Tablet 2 tab(s) orally every 6 hours , Taking Aspirin 81 MG TABLET 1 TAB(S) ORALLY ONCE A DAY , Notes to Pharmacist: *Please review and pick correct [facility]. If intended option is not shown, [...] *Please review and pick correct strength-formulation from [employer] options. If intended option is not shown, [...] * Treatment: * * Electronic signature of Anisa hallman Migration on 07/13/2024 at 03:04 PM EDT Sign off status: Pending * Provider: Cara gomez Migration Date: 0 05/12/2024 Generated for Emmie jimenez/Ratna/Vic on: 0 07/13/2024 03:04 PM EDT
--- OUTSIDE RECORDS SUMMARY | 2024-07-13 15:04 | XMS_ITS | Clinical Summary ---
Author Organization [facility] Address [address] [place] [address] Care Team Providers Care Cyber Reverse Engineer Name Role Phone Beto Barrera Primary Care Provider [phone] Allergies Active Allergy Reactions Criticality Noted Date Comments Latex 12/10/2021 Sulfa (Sulfonamide Antibiotics) 04/2021 Social History Tobacco Use Types Packs/Day Years Used Date Smoking Tobacco: Never Assessed Interpersonal Safety Answer Date Record ed Family or friends hurt you Not on file 02/26 Family or friends insult you Not on file Family or friends threaten you Not on file 0 02/26/2023 Family or friends scream or curse at you Not on file 02/26/2023 Housing Stability Answer Date Recorded Living situation today Not on file Living situation problems Not on file 2023 Food Insecurity Answer Date Recorded Food run out past 12 months Not on file 02/08 Food did not last past 12 months Not on file 02/26/2023 Employment Answer Date Recorded Help finding and keeping a job Not on file 0 02/26/2023 Family and Community Support Answer John e Recorded Help with Day to Day Activities Not on file 02/26/2023 Feeling Lonely or Isolated Not on file 02/26 Educational Attainment Answer Date Ivan rded Speak language other than Samoan at home Not on file 02/26/2023 Want help with school or training Not on file 02/26/2023 Depression Answer Date Recorded PHQ-2 Risk Not on file 02/26/2023 Disabilities Answer Date Recorded Difficulty concentrating Not on file 024 Difficulty doing errands alone Not on file 0 02/26/2023 Substance Use Answer Date Recorded Used prescription meds for non-medical reasons N ot on file 02/26/2023 Used illegal drugs past 12 months Not on file 02/26/2023 Comments Unknown Sex and Gender Information Value Date Recorded Sex Assigned at Not on file Legal Sex Female 4:42 PM CDT Gender Identity Not on file Sexual Orientation Not on file Plan of Treatment Health Maintenance Due Date Last Done Comments CT Colonography 1956 Colonoscopy 1956 Colorectal Cancer Screening 1956 DXA SCAN 1956 FOBT/FIT 1956 Fit-DNA (Cologuard) 1956 Sigmoidoscopy 1956 Depression Screening (12+) 1968 Tobacco Cessation Counseling and Screening (12+) 1968 Hepatitis C Screening 1974 DTAP/TDAP/TD VACCINES (1 - Tdap) 09/28/1975 Breast Cancer Screening 1996 Shingles Vaccine (Zoster) (1 of 2) 2006 Medicare Initial AWV [id number] 08/08/2008 Pneumococcal 50+ years (3 of 3 - PCV20 or PCV21) 02/22/2023 02/22/2018, 11/19/2016 COVID-19 VACCINE (3 - season) 2023, 04/23/2020 Falls Risk Screening 02/08/2024 Influenza Vaccine (Season Ended) 2024 Respiratory Syncytial Virus (RSV) Adult or (1 - 1-dose 75+ series) 09/28/2031 Insurance [employer] [place] [phone] MEDICARE PART A B Care Teams Cyber Reverse Engineer Relationship Specialty Start Date End Date Beto Barrera [address] [facility] [address] [place] [address] PCP - General 12/02/21
--- OUTSIDE RECORDS SUMMARY | 2024-07-13 15:04 | XMS_ITS | Data Portability ---
Author Organization [facility] Address [address] [place] [address] Assessment Encounter Date Assessment Date Assessment LastModified by Organization Details LastModified Time 01/05/2022 01/05/2022 A 66 year old female [email or web address] Not available 01/05/2022 14:18:43 Plan of Treatment Reminders Order Date Submit Date Provider Last Modified By Organization Details Last Modified Time Details Appointments None recorded. Lab ccp (cyclic citrullinat ed peptide) iga+igg, serum 2021 [facility], [address] [place] [address], [id number], 18:26:55 ESR (erythrocyt e sedimentati on rate), blood 2021 [facility], [address] [place] [address], [id number], 16:40:26 C reactive protein, QN, serum or plasma 2021 [facility], [address] [place] [address], [id number], 15:36:19 rf (rheumatoid factor), serum 2021 [facility], [address] [place] [address], [id number], 15:36:17 CK (creatine kinase), total, serum 2021 [facility], [address] [place] [address], [id number], 15:36:20 CLAIRE (antinuclea r antibodies) panel, serum 2021 [facility], [address] [place] [address], [id number], 19:41:43 Referral None recorded. Procedures None recorded. Surgeries None recorded. Imaging XR, joint, multiple, 1 view 2021 [facility], [address] [place] [address], [id number], 15:04:57 Medication Orders None recorded. Patient TargetsNo targets recorded. Patient Instructions Encounter Date Encounter Id Patient Instructions Last Modified By Organization Details Last Modified Time 01/05/2022 [id number] medical record request* - Please fax us her MRI right shoulder report for our review. [email or web address] Not available 01/12/2022 08:12:31 Joint symptoms mostly mechanical related to degenerative joint disease. Has advanced CMC and hand osteoarthritis. She is getting CMC/first compartment of left wrist injection per [facility] hand surgery. Has left more than right knee osteoarthritis under care of [facility] orthopedic and getting injection for that. She has right shoulder aching pain, failed injection and physical therapy. MRI right shoulder per [facility] note at indicated partial rotator [...] assistance. Recommend patient to continue follow-up with [facility] orthopedic as it relate to the right shoulder rotator cuff/DJD management. We will proceed with illustrated plan of care for work-up completion risk stratification from rheumatology perspective. We will retrieve the MRI report done at [facility] for our review. Age-appropriate cancer screening cardiovascular [...] their kind discretion. All her question answered. [facility] orthopedic office note reviewed. RTC in 8 [...] <10.0 IU/mL 0.0-13 .9 normal Not Available [facility] [address] [place] [address], [id number], 01/05/2022 15:36:17 01/06/20 22 01/05/2022 C REACT PALMER PROTE IN C reactive protein 0.78 mg/dL 0.00-0 .49 high Not Available [facility] [address] [place] [address], [id number], 01/05/2022 15:36:19 01/06/20 22 01/05/2022 CREAT INE KINAS E creatine kinase 110 U/L 0-169 normal Not Available [facility] [address] [place] [address], [id number], 01/05/2022 15:36:20 01/06/20 22 01/05/2022 ESR, AUTOM ATED ESR, automated 23 mm 0-29 normal Not Available [facility] [address] [place] [address], [id number], 01/05/2022 16:40:26 01/06/20 22 01/06/2022 ANTI- CCP anti-ccp <16 units normal Refer ence Range Negat palmer: <20 Weak Posit palmer: 20-39 Moder ate Posit palmer: 40-59 Stron g Posit palmer: >59 TEST PERFO RMED AT: [facility] [address] [place] [address] KINSEY Kemp MD Not Available [facility] [address] [place] [address], [id number], 01/06/2022 18:26:55 01/06/20 22 01/07/2022 CLAIRE W/ [...] Patte rns ([email or web address]. 1515/ [facility]- 2017- 0052) For addit ional infor brigitte hinojosa e refer to http: //[facility].Que stDia gnost ics.c om/fa q/FAQ 177 (This link is being provi ded for infor matio nal/ educa sylwia l purpo ses only. ) TEST PERFO RMED AT: [facility] [address] [place] [address] KINSEY Kemp MD Not Available [facility] [address] [place] [address], [id number], 01/07/2022 19:41:43 01/06/20 22 01/05/2022 XR, joint , multi ple, 1 view [facility] [address] [place] [address] Syd kennedy Name: EBONIE kennedy : 957 Syd kennedy 88 Orderi ng Provid er: TAMIA ALONZONATALIEKyung EXAM DATE: 2021 EXAM: XR ENE HANDS, [...] Jovi coronado MD on 2021 2:59 PM [email or web address] [facility] [address] [place], [address], 01/06/2022 09:17:33 01/13/20 22 09/30/2021 MRI, shoul benjy, w/o contr ast No observ ation record ed. [email or web address] [facility] (Med Record) [address], [place], [address], 01/13/2022 12:58:37 Result Notes None recorded. Procedures Surgical History Date Name Laterality Status Provider Name and Address Organization Details Recorded Time 5 Carpal tunnel surgery completed Lisa Steele [facility] 01/05/2022 13:42:24 Imaging Results None recorded. Procedure Notes None recorded. Medical Equipment None Reported. Allergies Allergen ID Allergen Name Allergen Category Reaction Reaction Severity Criticality Documentation Date Start Date Code Code System Note Provider Name and Address Organization Details Recorded Time 783573 latex environme nt,medica tion rash mild low 01/05/2022 43843 91 RxNorm Lisa Steele [facility] 2 13:40:00 218898 adhesive environme nt,medica tion rash mild low 01/05/2022 20539 UNK Lisa Steele [facility] 2 13:40:20 326823 Product containin g penicilli n (product) medicatio n rash mild low 01/05/2022 07603 8001 SNOMED Lisa Steele [facility] 13:40:51 032388 Substance with sulfonami de structure and antibacte rial mechanism of action (substanc e) medicatio n rash mild low 01/05/2022 14857 [facility] Steele [facility] 13:41:16 Medications Name Sig Start Date Stop [...] Updated DateTime 2 165.1 cm 33.9 kg/m2 55254.8 4 g 18 /min 78 /min 96 % 96 % 126 mm[Hg] 74 mm[Hg] Lisa Steele [facility] 13:44:18 Social History Question Answer Notes LastModified by [employer] ion Details LastModified Time Tobacco Smoking Status Current Every Day Smoker Lisa [facility] 01/05/2022 13:41:53 What Was The Date Of Your Most Recent Tobacco Screening? 01/05/2022 [email or web address] Information not available 01/05/2022 How Much Tobacco Do You Smoke? 1 PPD [email or web address] Information not available 01/05/2022 Have You Recently Traveled Abroad? No [email or web address] Information not available 01/05/2022 Sex: Unknown Functional Status Question Answer Note LastModified by Organizat ion Details LastModified Time Do you use any illicit or recreational drugs? No [email or web address] Information not available 01/05/2022 What is your level of alcohol consumption? Occasional [email or web address] Information not available 01/05/2022 Mental Status None recorded. Family History Nothing Reported. Medical History No medical history recorded. Gynecological HistoryNo gynecological history recorded. Obstetrics History GPAL:G 0 P 0 0 0 0 Past Encounters Encounter ID Performer Location Encounter Start Date Encounter Closed Date Diagnosis/Indication Diagnosis SNOMED-CT Code Diagnosis ICD10 Code Diagnosis Note [id number] TAMIA NEWELL MD [facility] [address] [place] [address] 01/05/2022 13:12:01 01/06/2022 10:15:53 Pain of multiple joints 87129689 M25.50 Rotator cu ff arthropathy of right shoulder 5317997863 0500369 M25.811 Osteoarthr itis of joint of bilateral hands 5078550418 31833 M19.041 M19.042 Osteoarthr osis of the carpometacarpal joint of the thumb 75610844 M18.9 Bilateral osteoarthritis of knees 5597801277 64466 M17.0 Health Concerns Section Related Observation LastModified by Organization Detai ls LastModified Time None Recorded Concern Status LastModified by Organization Details LastModified Time None Recorded Advance Directives Directive None Recorded Payers Insurance Date Sequence Insurance Name Policy Number Policy Titus Covered Member ID Titus Member ID Guarantor Name 01/05/2022 1 [employer] PREFERRED - [facility] - [place] Ebonie Blue [id number] Ebonie Blue 01/05/2022 2 [employer] - MEDICARE SELECT - PLAN F (MEDICARE SUPPLEMENT) Ebonie Blue [id number] Ebonie Blue 01/05/2022 1 [place] Ebonie Blue [id number] Ebonie Blue Notes Date Note Type Note Provider Name and Address Organization Details Recorded Time 01/05/2022 text/html A 66-year-old fe male here with her with history of fibromyalgia on duloxetine, gabapentin, amitriptyline, osteoarthritis hands, CMC osteoarthritis, right shoulder rotator cuff disease, under care of [facility] orthopedic with partial tear, BGO recommended surgery [...] jaw claudication or headache. TAMIA NEWELL MD [address] [place] [address], [phone], [facility] 01/06/2022 12:55:20 OBGyn Episode No OBEpisode recorded.
--- OUTSIDE RECORDS SUMMARY | 2024-07-13 15:04 | XMS_ITS | Encounter Summary ---
Author Organization [facility] Address [address] [place] [address] Care Team Providers Care Platen Press Operator Name Role Phone Bruce Beto Primary Care Provider [phone] Encounter Details Date Type Department Care Team (Late st Contact Info) Description 11/30/2021 Outside Orders [facility] Central Scheduling [address] [place] [address] Rock Toribio MD [address] [facility] 2nd floor [place] [phone] Right shoulder pain, unspecified chronicity (Primary Dx) Social History Tobacco Use Types Packs/Day Years Used Date Smoking Tobacco: Never Assessed Comments Unknown Sex and Gender Information Value Date Recorded Sex Assigned at Not on file Legal Sex Female 4:42 PM CDT Gender Identity Not on file Sexual Orientation Not on file documented as of this encounter Plan of Treatment Not on file documented as of this encounter Visit Diagnoses Diagnosis Right shoulder pain, unspecified chronicity- Primary documented in this encounter Care Teams Platen Press Operator Relationship Specialty Start Date End Date Beto Barrera [address] [place] [address] PCP - General 12/02/21 documented as of this encounter
--- OUTSIDE RECORDS SUMMARY | 2024-07-13 15:05 | XMS_ITS | Clinical Summary ---
Author Organization [facility] Address [address] 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 Role Phone Sherif Ridley MD Primary Care Provider [phone] Tommie Gayle MD Unavailable [phone] Allergies Active Allergy Reactions Criticality Noted Date Comments 2nd Skin Quick Heal Rash Low 10/30/2012 Amoxicillin-Pot Clavulanate Rash,Unknown - Patient states they do not know rxn details,Hives Medium 10/30/2012 Atorvastatin Unknown - Patient states they do not know rxn details Low 04/13/2024 Cefdinir Unknown - Patient states they do not know rxn details,Diarrhea Low 07/17/2015 Clarithromycin Other - please document in the comment field,Unknown - Patient states they do not know rxn details Low 10/30/2012 severe diarrhea Clavulanic Acid Rash Low 09/29/2021 Codeine Unknown - Patient states they do not know rxn details,Other - please document in the comment field Low 10/30/2012 Latex Unknown - Patient states they do not know rxn details,Rash Low 07/17/2015 Nitrofurantoin Itching Medium 10/07/2023 Wound Dressing Adhesive Unknown - Patien t states they do not know rxn details Low 07/17/2015 Penicillins Rash Low 08/20/2022 Sulfa Drugs Unknown - Patient states they do not know rxn details,Rash Low 07/17/2015 Sulfacetamide Itching,Hives Medium 11/16/2018 Tapentadol Rash Low 10/30/2012 Plastic tape OK Trimethoprim Rash Low 09/29/2021 Medications DULoxetine (Cymbalta) [address] capsule 06/14/19 22 Active DULoxetine (Cymbalta) [address] capsule 12/26/19 15 Active Azelastine HCl 137 MCG/SPRAY solution 06/16/19 22 Active atorvastatin (Lipitor) 20 MG tablet 04/17/19 22 Active amLODIPine (Norvasc) 5 MG tablet 07/03/19 22 Active amitriptyline (Elavil) 50 MG tablet 06/14/19 22 Active albuterol 108 (90 Base) MCG/ACT inhaler 05/29/19 22 Active cholecalciferol (Vitamin D-3) 10 MCG (400 UNIT) capsule 1 cap(s) orally once a day Active oxybutynin (Ditropan) 5 MG tablet Active Aspirin 81 MG capsule 1 tab(s) orally once a day Active albuterol 108 (90 Base) MCG/ACT inhaler 01/24/20 15 Active atorvastatin (Lipitor) 20 MG tablet 1 tab(s) orally once a day Active EPINEPHrine (Epipen) 0.3 MG/0.3ML injection syringe 06/18/19 22 Active fluticasone (Flonase) 50 MCG/ACT nasal spray 06/02/19 22 Active Advair Diskus 500-50 MCG/ACT diskus inhaler 06/26/19 22 Active furosemide (Lasix) 40 MG tablet 01/18/20 15 Active gabapentin (Neurontin) 300 MG capsule 05/31/19 22 Active gabapentin (Neurontin) 600 MG tablet 01/18/20 15 Active hydroCHLOROthiazid e (HYDRODiuril) 25 MG tablet 01/07/20 15 Active ipratropium-albute rol (Duo-Neb) 0.5-2.5 mg/3 mL nebulizer solution 05/15/19 16 Active latanoprost (Xalatan) 0.005 % ophthalmic solution 06/11/19 22 Active Ospemifene (Osphena) 60 MG tablet 01/07/20 15 Active ondansetron (Zofran) 8 MG tablet may take one take one by mouth 6-8 hours as needed for nausea 08/01/19 16 Active omeprazole (PriLOSEC) [address] capsule 12/26/19 15 Active omeprazole (PriLOSEC) [address] capsule 06/14/19 22 Active omeprazole (PriLOSEC) [address] capsule 1 cap(s) orally once a day Active nitrofurantoin, macrocrystal-monoh ydrate, (Macrobid) 100 MG capsule 04/28/19 22 Active montelukast (Singulair) 10 MG tablet 06/14/19 22 Active montelukast (Singulair) 10 MG tablet 01/24/20 15 Active mometasone-formote rol (Dulera) 200-5 MCG/ACT inhaler 05/01/19 16 Active mometasone (Nasonex) 50 MCG/ACT nasal spray 01/24/20 15 Active metaxalone (Skelaxin) 800 MG tablet 01/07/20 15 Active levocetirizine (Xyzal) 5 MG tablet 06/14/19 22 Active potassium chloride CR (Klor-Con M20) 20 MEQ ER tablet 01/18/20 15 Active oxyCODONE-acetamin ophen (Percocet) 5-325 MG tablet 08/12/19 16 Active oxybutynin XL (Ditropan-XL) 5 MG 24 hr tablet 05/27/19 16 Active piroxicam (Feldene) 20 MG capsule 01/10/20 15 Active rOPINIRole (Requip) 1 MG tablet 06/14/19 22 Active simvastatin (Zocor) 20 MG tablet 01/10/20 15 Active terbinafine (LamISIL) 250 MG tablet 02/06/20 15 Active tiZANidine (Zanaflex) 2 MG tablet 01/15/20 21 Active traMADol (Ultram) 50 MG tablet Active varenicline (Chantix) 1 MG tablet 02/22/19 16 Active traMADol (Ultram) 50 MG tablet 06/07/19 22 Active traMADol ER (Ultram-ER) 300 MG 24 hr tablet 01/18/20 15 Active warfarin (Coumadin) 5 MG tablet 07/11/19 21 Active warfarin (Coumadin) 5 MG tablet 01/17/20 15 Active warfarin (Coumadin) 7.5 MG tablet 06/17/19 22 Active dicyclomine (Bentyl) 10 MG capsule 11/20/19 22 Active fluticasone-salmet lv (Advair Diskus) 500-50 MCG/ACT diskus inhaler Inhale 1 puff twice a day by inhalation route. Active fluticasone-salmet lv (Advair Diskus) 250-50 MCG/ACT diskus inhaler Inhale 1 puff twice a day by inhalation route. Active dicyclomine (Bentyl) 10 MG capsule 1 cap orally 4 times a day PRN Active Magnesium 400 MG capsule 1 (one) time each day at the same time. Active metaxalone (Skelaxin) 800 MG tablet 1 tab(s) orally 2 times a day as needed for muscle spasm for 30 days Active Cholecalciferol (D3-1000 PO) 1 (one) time each day at the same time. Active amoxicillin (Amoxil) 500 MG capsule 06/02/19 23 Active dorzolamide-timolo l (Cosopt) 22.3-6.8 MG/ML ophthalmic solution 08/11/19 23 Active HYDROcodone-acetam inophen ([place]) 5-325 MG tablet 06/02/19 23 Active omalizumab (Xolair) 150 MG injection as directed subcutaneously every 2 weeks Active ondansetron ODT (Zofran-ODT) 8 MG disintegrating tablet 05/11/19 23 Active Spiriva Respimat 1.25 MCG/ACT aerosol solution 03/22/19 23 Active oxyCODONE-acetamin ophen (Percocet) 10-325 MG tablet 05/11/19 23 Active busPIRone (Buspar) 10 MG tablet Take 1 tablet (10 mg) by mouth 2 (two) times a day. Active pravastatin (Pravachol) 20 MG tablet Take 1 tablet (20 mg) by mouth Daily. 01/30/20 24 Active Encounters Date Type Department Care Team Description 04/13/2024 1:40 PM EST Office Visit [facility] [address], [address] [place] [phone] Willy Wise MD Moderate asthma, unspecified whether complicated, unspecified whether persistent (Primary Dx) 04/13/2024 Telephone [facility] [address], [address] [place] [phone] Prince Yi RN 04/13/2024 Travel from Last 3 Months Immunizations Immunization Administration Dates Next Due Influenza, Unspecified 12/08/2021,11/07/2020, Influenza, high-dose, quadrivalent 12/02/2022 Influenza, injectable, quadrivalent 02/22/2018,1 Influenza, injectable, quadr ivalent, preservative free 10/23/2020,10/23/2019 Moderna COVID-19 Vaccine (Re d Cap) 12+ years 05/21/2020,04/23/2020 Pneumococcal Conjugate PCV 13 02/22/2018 Pneumococcal Polysaccharide PPV23 03/30/2019, Family History Medical History Relation Name Comments Heart attack Father Hypertension Father Bone cancer Maternal Grandmother Family history of malignant neoplasm of bone Conversions - Other Mother Back pro blem Lung cancer Mother Family history of lung cancer Other cancer Mother Conversions - Other Other 1 Back pro blem Other cancer Other 2 Conversions - Other Sibling 1 Back pro blem Stroke Sibling 2 Hypertension Sibling 3 Relation Name Status Comments Father Maternal Grandmother Mother Other 1 Other 2 Sibling 1 Sibling 2 Sibling 3 Social History Tobacco Use Types Packs/Day Years Used Date Smoking Tobacco: Former Cigarettes 1 40 1 971 - 2008 Passive Smoke Exposure: Past Smokeless Tobacco: Never Tobacco Cessation:Counseling Given: No Alcohol Use Standard Drinks/Week Comments Yes 1 (1 standard drink = 0.6 oz pur e alcohol) once /2x a mo PHQ-2 Answer Date Recorded Patient Health Questionnaire-2 Score 0 10/07/2023 PHQ-2A Answer Date Recorded Depression Risk 0 10/07/2023 Comments Unknown Sex and Gender Information Value Date Recorded Sex Assigned at Female 12/01/2021 9:44 AM EDT Legal Sex Female 8:43 PM EDT Gender Identity Female 12/01/2021 9:44 AM EDT Sexual Orientation Straight 12/01/2021 9: 44 AM EDT Last Filed Vital Signs Vital Sign Reading Time Taken Comments Blood Pressure 107/62 04/13/2024 1:22 PM EST Rig ht arm Pulse 66 04/13/2024 1:10 PM EST Temperature 36.6 C (97.8 F) 04/13/2024 1:10 PM EST Respiratory Rate 18 10/07/2023 12:5 6 PM EDT Oxygen Saturation 99% 04/13/2024 1:10 PM EST RA Inhaled Oxygen Concentration - - Weight 95.6 kg (210 lb 12.2 oz) 04/13/2024 1:10 PM EST Height 166.4 cm (5' 5.5 ) 04/13/2024 1:10 PM EST Body Mass Index 34.54 04/13/2024 1:10 PM EST Plan of Treatment Upcoming Encounters Date Type Department Care Team (Late st Contact Info) Description 10/12/2024 12:00 PM EDT Appointment [facility] [address] [place] [address] 10/12/2024 1:00 PM EDT Office Visit [facility] [address], [address] [place] [phone] Willy Wise MD [address] [place] [address] Health Maintenance Due Date Last Done Comments [facility]-Bone Density Scan 1956 [facility]-Hepatitis C Screening 1956 [facility]-Medicare Annual Wellness (AWV) 1955 [facility]-/Child/Adol SDOH Screenings 1956 [facility]- SDOH Screenings 1974 [facility]-Adult SDOH Screenings 1974 [facility]-DTaP,Tdap,and Td Vaccines (1 - Tdap) 09/28/1975 CT Colonography 2001 Colonoscopy 2001 FIT-DNA 2001 FIT 2001 FOBT 2001 Sigmoidoscopy 2001 [facility]-Colorectal Cancer Screening 2001 [facility]-Breast Cancer Screening 2006 [facility]-Zoster Vaccines (1 of 2) 2006 [facility]-RSV Vaccine: 60+ Years or (1 - Risk 60-74 years 1-dose series) 2016 [id number] Vaccine (3 - Moderna risk series) 06/18/2020 05/21/2020, 04/23/2020 [facility]-Pneumococcal Vaccine: 50+ Years (3 of 3 - PCV20 or PCV21) 03/30/2024 03/30/2019, 02/22/2018, 11/19/2016 [facility]-Depression Screening 10/06/2024 10/07/2023, 09/09 [facility]-Influenza Vaccine (Season Ended) 2024 12/02/2022, 12/08/2021, 11/07/2020, Additional history exists [facility]-Lung Cancer Screening Discontinued 2023, 09/28/2022, 09/25/2021, Additional history exists [facility]-Obesity Intervention Completed 025, 10/07/2023, 08/20/2022, Additional history exists HPV Vaccines Aged Out No longer eligi ble based on patient's age to complete this topic [facility]-HIB Vaccines Aged Out No longer e ligible based on patient's age to complete this topic [facility]-Hepatitis A Vaccines Aged Out No longer eligible based on patient's age to complete this topic [facility]-IPV Vaccines Aged Out No longer e ligible based on patient's age to complete this topic [facility]-Rotavirus Vaccines Aged Out No lo nger eligible based on patient's age to complete this topic Procedures Procedure Name Priority Date/Time Associated Diagnosis Comments CT CHEST LUNG CANCER SCREENING Routine 10/07/2023 11:55 AM EDT Encounter for screening for lung cancer Encounter for screening mammogram for malignant neoplasm of breast from Last 3 Months or Most Recently Relevant to Health Maintenance Results * CT Chest Lung Cancer Screening (10/07/2023 11:55 AM EDT) Anatomical Region Laterality Modality Chest Computed Tomogra phy Impressions 10/07/2023 3:13 PM EDT Stable small subpleural pulmonary nodules are likely benign. Moderate coronary artery calcifications. Aortic valve and mitral annulus calcifications also. Recommendations: LungRADS 2: Benign appearance or behavior - CT Chest Lung Cancer Screening recommended in 12 months. Modifier: S - Moderate coronary artery calcifications. Aortic valve and mitral annulus calcifications also. CRITICAL RESULT: No. COMMUNICATION: Per this written report. Drafted by Vira Brown MD on 10/07/2023 3:02 PM Final report signed by Vira Brown MD on 10/07/2023 3:13 PM Narrative 10/07/2023 3:13 PM EDT CLINICAL INDICATION: Lung cancer screening; personal history of tobacco use. TECHNIQUE: Multiple CT helical images were obtained from thoracic inlet through upper abdomen without contrast. A low radiation dose protocol was utilized. Total DLP (Dose-Length Product): 30.89 mGy.cm. Please note: The reported value represents the total of one or more individual components during the CT acquisition on this date and at this time, and as such, the same value may appear in more than one CT report depending on the interpreting/reporting physicians. COMPARISON: September 28, 2022 CT chest FINDINGS: Mediastinum and Pleura: No adenopathy. Incidentally noted lipomatous hypertrophy of the intra-atrial septum. Aortic valve and mitral annulus calcifications. Coronary Calcium: Yes, moderate. Lungs: Subpleural 5 mm nodule in the right middle pulmonary lobe is stable. Stable 4 mm subpleural nodule in the lingula (series 2, image 64), consistent with intrapulmonary lymph node. Redemonstrated bilateral calcified granulomas. Upper Abdomen: No suspicious lesion in the partially visualized upper abdomen. Multiple posterior splenules are redemonstrated. Redemonstrated cholecystectomy clips. Please note that the low dose technique utilized for this examination is optimized for pulmonary nodule evaluation and has limited sensitivity for detection of abdominal abnormalities. Musculoskeletal: Mild degenerative changes of the spine. Procedure Note Vira Brown MD - 10/07/2023 CLINICAL INDICATION: Lung cancer screening; personal history of tobacco use. TECHNIQUE: Multiple CT helical images were obtained from thoracic inlet through upperabdomen without contrast. A low radiation dose protocol was utilized. Total DLP (Dose-Length Product): 30.89 mGy.cm. Please note: The reportedvalue represents the total of one or more individual components during theCT acquisition on this date and at this time, and as such, the same valuemay appear in more than one CT report depending on theinterpreting/reporting physicians. COMPARISON: September 28, 2022 CT chest FINDINGS: Mediastinum and Pleura: No adenopathy. Incidentally noted lipomatoushypertrophy of the intra-atrial septum. Aortic valve and mitral annuluscalcifications. Coronary Calcium: Yes, moderate. Lungs: Subpleural 5 mm nodule in the right middle pulmonary lobe isstable. Stable 4 mm subpleural nodule in the lingula (series 2, image 64),consistent with intrapulmonary lymph node. Redemonstrated bilateralcalcified granulomas. Upper Abdomen: No suspicious lesion in the partially visualized upperabdomen. Multiple posterior splenules are redemonstrated. Redemonstratedcholecystectomy clips. Please note that the low dose technique utilizedfor this examination is optimized for pulmonary nodule evaluation and haslimited sensitivity for detection of abdominal abnormalities. Musculoskeletal: Mild degenerative changes of the spine. IMPRESSION: Stable small subpleural pulmonary nodules are likely benign. Moderate coronary artery calcifications. Aortic valve and mitral annuluscalcifications also. Recommendations: LungRADS 2: Benign appearance or behavior - CT Chest Lung Cancer Screeningrecommended in 12 months. Modifier: S - Moderate coronary artery calcifications. Aortic valve andmitral annulus calcifications also. CRITICAL RESULT: No. COMMUNICATION: Per this written report. 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
--- OUTSIDE RECORDS SUMMARY | 2024-07-13 15:05 | XMS_ITS | Referral Summary ---
Author Organization [facility] Address [address] [place] [id number] Care Team Providers Care Dive Supervisor Name Role Phone Beto Barrera Primary Care Provider [phone] Allergies Active Allergy Reactions Criticality Noted Date [...] Date Ivan rded Speak language other than Montserrat[place] at home Not on file 02/26/2023 Want [...] Orientation Not on file Plan of Treatment Not on file Insurance [email or web address] [place] [id number] MEDICARE PART A B Care Teams Dive Supervisor Relationship Specialty Start Date End Date Beto Barrera[address] [facility] [address] [place] [phone] PCP - General 12/02/21
--- OUTSIDE RECORDS SUMMARY | 2024-07-13 15:05 | XMS_ITS | Patient Health Record ---
Author Organization [facility] Address [address] [place] [address] Care Team Providers Care Automat Watcher Name Role Phone Sherif Ridley Primary Care Provider Sandra Lenz Unavailable [phone] Veronika [place] Unavailable [phone] Migration, Provider Unavailable Unavailable Allergies Allergen (clinical [...] atorvastatin Atorvastatin Unknown Drug Allergy A ctive Results Component Value Reference Range Notes Urinalysis (Not yet reviewed by provider) Interpretation: Performing Lab: Notes/Report: Color/Clarity julianna Leuk small Nitrite neg Urobili 0.2 Protein neg pH 6.0 Blood neg Sp. Gr. >=1.030 Ketone neg Bili neg Glucose neg Mammogram : Bilateral Reviewed date:05/18/2024 09:33:52 AM Interpretation: Performing Lab: Notes/Report: Mammogram : Bilateral Reviewed date:05/18/2024 09:33:52 AM Interpretation: Performing Lab: Notes/Report: Mammogram : Bilateral Reviewed date:05/18/2024 09:33:52 AM Interpretation: Performing Lab: Notes/Report: Mammogram : Bilateral Reviewed date:05/18/2024 09:33:52 AM Interpretation: Performing Lab: Notes/Report: Mammogram : Bilateral Reviewed date:05/18/2024 09:33:52 AM Interpretation: Performing Lab: Notes/Report: Mammogram : Bilateral Reviewed date:05/18/2024 09:33:52 AM Interpretation: Performing Lab: Notes/Report: DEXA Hip and Spine - Screeni ng Reviewed date:05/17/2024 09:05:04 AM Interpretation: Performing Lab: Notes/Report: DEXA Hip and Spine - Screeni ng Reviewed date:05/17/2024 09:05:04 AM Interpretation: Performing Lab: Notes/Report: Urinalysis Reviewed date:01/30/2024 01:26:11 PM Interpretation: Performing Lab: Notes/Report: Color/Clarity julianna Leuk neg Nitrite positive Urobili 0.2 Protein neg pH 5.0 Blood neg Sp. Gr. 1.020 Ketone neg Bili neg Glucose neg M-INR/PT Reviewed date:01/10/2024 01:08:56 PM Interpretation: Performing Lab: Notes/Report: PT 25.1 10.1-12.5 seconds INR 2.45 0.9-1.1 INDICATION INR RANGE Therapy for DVT, PE, Atrial Fib, 2.0-3.0 Prophylaxis for VTE. Therapy for Mechanical Heart Valve, 2.5-3.5 Prevention of Sytemic Emolism secondary to AMI. M-Comprehensive Metabolic Pa kumar Reviewed date:01/12/2024 05:33:10 PM Interpretation: Performing Lab: Notes/Report: NA 143 136-145 mmol/L K 4.3 3.5-5.1 mmoL/L CL 108 98-107 mmol/L CO2 29 22.0-30.0 mmol/L GAP 10.3 5-15 mEq/L BUN 13 7-17 mg/dl CREATT 0.70 0.52-1.04 mg/dl GFRAA 101 >60 ML/MIN EGFR 83 >60 ml/min GLU 122 74-100 mg/dl CA 9.5 8.4-10.2 mg/dl BILIT 0.6 0.2-1.3 mg/dl AST 21 14-36 U/L ALT 20 12-78 U/L TP 6.7 6.3-8.2 g/dl ALB 4.1 3.5-5.0 g/dl GLOB 2.6 1.3-3.2 g/dL AGRATIO 1.6 1.1-1.8 ALP 85 38-126 U/L M-Basic Metabolic Panel Reviewed date:04/10/2024 08:55:43 AM Interpretation: Performing Lab: Notes/Report: NA 139 136-145 mmol/L K 4.2 3.5-5.1 mmoL/L CL 108 98-107 mmol/L CO2 23 22.0-30.0 mmol/L GAP 12.2 5-15 mEq/L BUN 15 7-17 mg/dl CREATT 0.70 0.52-1.04 mg/dl CRCLE 81 50-200 mL/min GFRAA 101 >60 ML/MIN EGFR 83 >60 ml/min GLU 80 74-100 mg/dl CA 9.1 8.4-10.2 mg/dl M-Uric Acid Reviewed date:04/10/2024 08:55:43 AM Interpretation: Performing Lab: Notes/Report: URIC 6.6 2.5-6.2 mg/dl M-Lipid Panel Reviewed date:01/12/2024 05:33:10 PM Interpretation: Performing Lab: Notes/Report: Patient Fasting? Y TRIG 114 30-150 mg/dl CHOL 222 140-200 mg/dl DLDL 143.39 100-129 mg/dL VLDL 23 0-40 mg/dL HDL 54 40-60 mg/dl CHLHDL 4.1 1-3.5 CULTURE, URINE, ROUTINE (395 ) Reviewed date:02/01/2024 07:12:41 PM Interpretation: Performing Lab:CB, [facility] [address], [facility] [id number] Wes Oakley Notes/Report: NON-FASTING CULTURE, URINE, ROUTINE SEE NOTE CULTURE, URINE, ROUTINE Micro Number: [id number] Test Status: Final Specimen Source: Urine Specimen Quality: Adequate Result: Mixed genital leonardo isolated. These superficial bacteria are not indicative of a urinary tract infection. No further organism identification is warranted on this specimen. If clinically indicated, recollect clean-catch, mid-stream urine and transfer immediately to Urine Culture Transport Tube. CULTURE, URINE, ROUTINE (395 ) Reviewed date:09/17/2023 09:07:28 AM Interpretation: Performing Lab:KEVIN, [facility] [address] [facility], [place] [id number] Wesjanelle Oakley Notes/Report: NON-FASTING CULTURE, URINE, ROUTINE SEE NOTE CULTURE, URINE, ROUTINE Micro Number: [id number] Test Status: Final Specimen Source: Urine, clean catch Specimen Quality: Adequate Result: 10,000-49,000 CFU/mL of Escherichia coli COMMENT: Additional non-predominating organism(s) isolated. These organisms, commonly found on external and internal genitalia, are considered colonizers. No further testing performed. E.coli INT MAURICIO AMOX/CLAVULANATE S 8 AMP/SULBACTAM S 4 CEFAZOLIN NR <=4 2 CEFEPIME S <=0.12 CEFTAZIDIME S <=1 CEFTRIAXONE S <=0.25 CIPROFLOXACIN S <=0.06 GENTAMICIN S <=1 IMIPENEM S <=0.25 LEVOFLOXACIN S <=0.12 MEROPENEM S <=0.25 NITROFURANTOIN S <=16 PIP/TAZOBACTAM S <=4 TRIMETHOPRIM/SULFA S <=20 S=Susceptible I=Intermediate R=Resistant * = Not Tested NR = Not Reported NN = See Therapy Comments THERAPY COMMENTS Note 1: For infections other than uncomplicated UTI caused by E. coli, K. pneumoniae or P. mirabilis: Cefazolin is resistant if MAURICIO > or = 8 mcg/mL. (Distinguishing susceptible versus intermediate for isolates with MAURICIO < or = 4 mcg/mL requires additional testing.) Note 2: For uncomplicated UTI caused by E. coli, K. pneumoniae or P. mirabilis: Cefazolin is susceptible if MAURICIO <32 mcg/mL and predicts susceptible to the oral agents cefaclor, cefdinir, cefpodoxime, cefprozil, cefuroxime, cephalexin and loracarbef. M-Complete Blood Count Auto Diff Reviewed date:01/12/2024 05:33:10 PM Interpretation: Performing Lab: Notes/Report: WBC 7.8 4.8-10.8 K/mm3 RBC 4.05 4.20-5.40 M/mm3 HGB 13.3 12.2-16.2 g/dL HCT 38.9 37.0-47.0 % MCV 96.2 81-99 fl MCH 32.8 27.0-31.2 pg MCHC 34.1 31.8-35.4 g/dL RDW 14.8 11.5-17.5 % PLT 243 142-424 K/mm3 MPV 7.6 7.4-10.4 fl NE% 68.1 37.0-80.0 % LY% 21.7 10-50 % MO% 5.7 1.7-9.3 % EO% 3.4 0.1-12.0 % BA% 1.1 0.1-2.0 % NE# 5.3 1.8-7.8 K/mm3 LY# 1.7 0.7-4.5 K/mm3 MO# 0.4 0.1-1.0 K/mm3 EO# 0.3 0.0-0.4 K/mm3 BA# 0.1 0-0.2 K/mm3 M-Complete Blood Count Auto Diff Reviewed date:04/10/2024 08:55:43 AM Interpretation: Performing Lab: Notes/Report: WBC 12.9 4.8-10.8 K/mm3 RBC 3.70 4.20-5.40 M/mm3 HGB 11.5 12.2-16.2 g/dL HCT 35.0 37.0-47.0 % MCV 94.6 81-99 fl MCH 31.1 27.0-31.2 pg MCHC 32.9 31.8-35.4 g/dL RDW 13.8 11.5-17.5 % PLT 238 142-424 K/mm3 MPV 9.8 7.4-10.4 fl NE% 72.7 37.0-80.0 % LY% 19.7 10-50 % MO% 6.4 1.7-9.3 % EO% 0.3 0.1-12.0 % BA% 0.5 0.1-2.0 % NE# 9.4 1.8-7.8 K/mm3 LY# 2.6 0.7-4.5 K/mm3 MO# 0.8 0.1-1.0 K/mm3 EO# 0.0 0.0-0.4 K/mm3 BA# 0.1 0-0.2 K/mm3 M-Erythrocyte Sedimentation Rate Reviewed date:04/10/2024 08:55:43 AM Interpretation: Performing Lab: Notes/Report: ESR 82 0-30 mm/hr M-PHA INR Fingerstick Reviewed date:03/23/2024 02:02:08 PM Interpretation: Performing Lab: Notes/Report: POCINRFS 2.4 0.9-1.1 Results sent to: Sherif Ridley MD Pharmacist recommendation for Warfarin therapy is: PATIENT INR 2.4 TODAY VIA FINGERSTICK. RECOMMENDED PATIENT CONTINUE WITH WARFARIN 3.75 MG ON MON/FRI; 7.5 MG ON SUN/E/TUE/SHAHBAZ/SAT. FOR DETAILED INFORMATION-PLEASE REVIEW PROGRESS NOTE IN THE ASSESSMENTS AND ANTICOAGULATION CLINIC SECTION ANTICOAGULATION CLINIC IN PCI/CLINICAL REVIEW INDICATION INR RANGE THERAPY FOR DVT, PE, ATRIAL FIB; 2.0 - 3.0 PROPHYLAXIS FOR VTE THERAPY FOR MECHANICAL HEART 2.5 - 3.5 VALVE; PREVENTION OF SYSTEMIC EMBOLISM SECONDARY TO AMI M-PHA INR Fingerstick Reviewed date:08/29/2023 05:23:47 PM Interpretation: Performing Lab: Notes/Report: POCINRFS 2.2 0.9-1.1 Results sent to: Sherif Ridley MD Pharmacist recommendation for Warfarin therapy is: PATIENT INR 2.2 TODAY VIA FINGERSTICK. RECOMMENDED PATIENT CONTINUE WITH WARFARIN 3.75 MG ON MON/FRI; 7.5 MG ON SUN/TUE/TUE/SHAHBAZ/SAT. FOR DETAILED INFORMATION-PLEASE REVIEW PROGRESS NOTE IN THE ASSESSMENTS AND ANTICOAGULATION CLINIC SECTION ANTICOAGULATION CLINIC IN PCI/CLINICAL REVIEW INDICATION INR RANGE THERAPY FOR DVT, PE, ATRIAL FIB; 2.0 - 3.0 PROPHYLAXIS FOR VTE THERAPY FOR MECHANICAL HEART 2.5 - 3.5 VALVE; PREVENTION OF SYSTEMIC EMBOLISM SECONDARY TO AMI Urinalysis Reviewed date:09/13/2023 02:38:53 PM Interpretation: Performing Lab: Notes/Report: Leuk moderate Nitrite neg Urobili 0.2 Protein 30 pH 7.0 Blood large Sp. Gr. 1.020 Ketone neg Bili small Glucose neg X ray : Foot, Left Reviewed date:10/05/2023 12:29:03 PM Interpretation: Performing Lab: Notes/Report: M-Drug Screen,Urine Reviewed date:11/03/2023 04:04:31 PM Interpretation: Performing Lab: Notes/Report: UOPIS Negative <300 ng/ml UBARBS Negative <200 ng/ml UPCPS Negative <25 ng/ml UAMPS Negative <1000 ng/ml UMETHS Negative <300 ng/ml UBENZS Negative <200 ng/ml UCOCS Negative <300 ng/ml UTHCS Positive <50 ng/ml This is an UNCONFIRMED result. This result is for medical purposes and/or treatment only. M-PHA INR Fingerstick Reviewed date:05/04/2024 11:52:38 AM Interpretation: Performing Lab: Notes/Report: POCINRFS 2.6 0.9-1.1 Results sent to: Sherif Ridley MD Pharmacist recommendation for Warfarin therapy is: INR TODAY VIA FINGERSTICK IS 2.6. RECOMMEND CONTINUING CURRENT WEEKLY DOSE OF WARFARIN AT 3.75MG MO/ AND 7.5MG ALL OTHER DAYS. PATIENT WILL F/U IN 6 WEEKS. FOR DETAILED INFORMATION-PLEASE REVIEW PROGRESS NOTE IN THE ASSESSMENTS AND ANTICOAGULATION CLINIC SECTION ANTICOAGULATION CLINIC IN PCI/CLINICAL REVIEW INDICATION INR RANGE THERAPY FOR DVT, PE, ATRIAL FIB; 2.0 - 3.0 PROPHYLAXIS FOR VTE THERAPY FOR MECHANICAL HEART 2.5 - 3.5 VALVE; PREVENTION OF SYSTEMIC EMBOLISM SECONDARY TO AMI M-PHA INR Fingerstick Reviewed date:07/18/2023 08:27:26 PM Interpretation: Performing Lab: Notes/Report: POCINRFS 2.7 0.9-1.1 Results sent to: Sherif Ridley MD Pharmacist recommendation for Warfarin therapy is: PATIENT INR 2.7 TODAY VIA FINGERSTICK. RECOMMENDED PATIENT CONTINUE WITH WARFARIN 3.75 MG ON MON/FRI; 7.5 MG ON TUE/TUE/TUE/SHAHBAZ/SAT. FOR DETAILED INFORMATION-PLEASE REVIEW PROGRESS NOTE IN THE ASSESSMENTS AND ANTICOAGULATION CLINIC SECTION ANTICOAGULATION CLINIC IN PCI/CLINICAL REVIEW INDICATION INR RANGE THERAPY FOR DVT, PE, ATRIAL FIB; 2.0 - 3.0 PROPHYLAXIS FOR VTE THERAPY FOR MECHANICAL HEART 2.5 - 3.5 VALVE; PREVENTION OF SYSTEMIC EMBOLISM SECONDARY TO AMI Medications Medication SIG (Take, Route, Frequency, Duration) Notes Start Date End Date Status Magnesium 400MG 1 TABLET ONCE A DAY *Please revi ew and pick correct strength-formulat ion from discoapi options. If intended option is not shown, discontinue and re-order from Quick Search* Active Aspirin 81 MG 1 TAB(S) ORALLY ONCE A DAY *Please review and pick correct strength-formulat ion from discoapi options. If intended option is not shown, discontinue and re-order from Quick Search* 01/26/2016 Active Amitriptyline HCl 50 MG 1 tab(s) orally once a day (at bedtime) for 30 days Active Ipratropium-Albutero l 0.5-2.5 (3) MG/3ML 3 mL by nebulizer tid prn 07/10/2018 Active Pravastatin Sodium 20 MG 1 tab(s) orally once a day for 90 days Active amLODIPine Besylate 2.5 MG 1 tab orally once a day Active rOPINIRole HCl 1 MG TAKE 1 TABLET BY MOUTH AT BEDTIME for 90 Active Vitamin D3 125 MCG (5000 UT) 1 cap(s) orally once a day Active DULoxetine HCl 60 MG 1 cap(s) orally 2 times a day for 90 days Active Azelastine HCl 137 MCG/SPRAY 2 spray(s) intranasally twice a day Active Warfarin Sodium 7.5 MG 7.5mg RAPP, TU, WE, SHAHBAZ,SAT. 3.75mg MF orally once a day for 30 days Active Xolair 150 MG as directed subcutaneously every 2 weeks Active Omeprazole 40 MG 1 cap(s) orally once a day for 30 days Active Montelukast Sodium 10 MG 1 tab(s) orally once a day for 30 day(s) Active Xyzal Allergy 24HR 5 MG 1 po qd Active Gabapentin 300 MG TAKE 1 CAPSULE BY MOUTH FOUR TIMES DAILY for 30 05/28/2024 Active predniSONE 20 MG 1 tablet Orally twic e a day for 5 days 07/13/2024 Active PROAIR HFA 90 MCG/INH USE 2 PUFFS EVERY 4 TO 6 HOURS PRNF COUGH/WHEEZE -REFILLS REMAINING >A INHALED 4 TIMES A DAY *Please review for potential replacement for e-prescription and drug interaction check* Active busPIRone HCl 10 MG TAKE 1 TABLET BY MOUTH TWICE DAILY for 30 days Active Minoxidil 10 MG 1 tablet Orally Once a day Active Flonase Allergy Relief 50 MCG/ACT 2 spray(s) intranasally once a day Active Acetaminophen 500 MG 2 tab(s) orally felicia ry 6 hours Active Immunizations Vaccine Route Administration Date Status Comme nts Fluvirin--Influenza vaccine 3+ year Unknown 03/06/2007 Administered Fluvirin--Influenza vaccine 3+ year IM Intramuscular 11/22/2012 Administered FLUZONE 6MO - OLDER IM Intramuscular 10/23/2020 Administer ed Fluzone High Dose IM Intramuscular 11/06/2021 Administered Fluzone High Dose IM Intramuscular 12/02/2022 Administered Fluzone High Dose IM Intramuscular 04/30/2024 Administered Influenza (Fluzone)--Medicare only IM Intramuscular 11/19/2016 Administered Influenza Intradermal ID Intradermal 12/21/2010 Administer ed Influenza-Fluzone 3+years (NON-MEDICARE) IM Intramuscular 01/22/2015 Administered Influenza-Fluzone 3+years (NON-MEDICARE) IM Intramuscular 02/22/2018 Administered Pneumococcal Vaccine IM Intramuscular 12/21/2010 Administe red Pneumovax 23 IM Intramuscular 11/19/2016 Administered Pneumovax 23 IM Intramuscular 11/06/2021 Administered Prevnar PCV-13 (Pneumococcal conjugate 13) IM Intramuscular 02/22/2018 Administered SHINGRIX IM Intramuscular 04/30/2024 Administered Social History Tobacco Use: Social History Observation Description Date Details (start date - stop date) Former Smoker NA - NA Smoking: Question Answer Notes Are you a: former smoker How long has it been since you last smoked? 1-5 years Section Notes: Stopped smoking 2016 Stopped smoking 2016 Stopped smoking 2016 Stopped smoking 2016 Stopped smoking 2016 Stopped smoking 2016 Stopped smoking 2015 Stopped smoking 2015 Problems Problem Type SNOMED Code ICD Code Onset Dates Problem Status W/U Status Risk Notes Problem Depressed bipolar I disorder (65782782) Bipolar disorder, current episode depressed, mild or moderate severity, unspecified (F31.30) Active confirmed Problem 206010709 Psychophysiologi c insomnia (F51.04) Active confirmed Problem 31723868 Other chronic pa in (G89.29) Active confirmed Problem 766863889 Fibromyalgia (M79.7) Active confirmed Problem 057392115 Depression with anxiety (F41.8) Active confirmed Problem 86976731 Anxiety (F41.9) Active confirmed Problem Vitamin D deficiency (04269772) Vitamin D deficiency (E55.9) Active confirmed Problem 74861139 Tobacco use disorder (Z72.0) Active confirmed Problem Onychomycosis (747228754) Onychomycosis (B35.1) Active confirmed Problem 56055299 Hyperlipidemia L DL goal <100 (E78.5) Active confirmed Problem 94543652 Essential hypertension (I10) Active confirmed Problem 475185769 Seasonal allergi es (J30.2) Active confirmed Problem 888014130 Asthma (J45.909) Active confirmed Problem 431665577 COPD exacerbatio n (J44.1) Active confirmed Problem 213126795 BMI 34.0-34.9,ad ult (Z68.34) Active confirmed Problem 348668523 BMI 31.0-31.9,ad ult (Z68.31) Active confirmed Problem 30574491 Other chronic pa in (G89.29) Active confirmed Problem 186709012 BMI 32.0-32.9,ad ult (Z68.32) Active confirmed Problem 181946055 BMI 30.0-30.9,ad ult (Z68.30) Active confirmed Problem 69436414646443 Arthritis, multi ple joint involvement (M12.9) Active confirmed Problem 939108174 Gastroesophageal reflux disease, esophagitis presence not specified (K21.9) Active confirmed Problem 592307660 Primary osteoarthritis of both knees (M17.0) Active confirmed Problem 597987024555434 Primary osteoarthritis of left knee (M17.12) Active confirmed Problem 518800704 BMI 36.0-36.9,ad ult (Z68.36) Active confirmed Problem 167896925 Moderate persist ent asthma without complication (J45.40) Active confirmed Problem 660609554 Left knee tendonitis (M76.892) Active confirmed Problem 740181776068545 Moderate persist ent asthma with acute exacerbation (J45.41) Active confirmed Problem 832403408 Lung nodule (R91.1) Active confirmed Problem 71910132 Gouty arthritis (M10.9) Active confirmed Problem 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) Active confirmed Problem 788965926 Lumbar disc herniation (M51.26) Active confirmed Problem 080534804 Current tobacco use (Z72.0) Active confirmed Problem 306187632 History of pulmonary embolism (Z86.711) Active confirmed Problem 774394854 Personal history of DVT (deep vein thrombosis) (Z86.718) Active confirmed Problem 150835596 Chronic constipation (K59.09) Active confirmed Problem 276061829 Menopausal disor benjy (N95.9) Active confirmed Problem 80337514 Restless legs syndrome (RLS) (G25.81) Active confirmed Problem 038296923 Urinary incontinence, unspecified type (R32) Active confirmed Problem 28118499 Recurrent fronta l sinusitis (J01.11) Active confirmed Problem 49887863 Major depress, p art remis (F32.4) Active confirmed Problem 923636666 Mixed dyslipidem ia (E78.2) Active confirmed Problem 778432414 Common bile duct dilation (K83.8) Active confirmed Problem 919474519 Arthritis of lef t hand (M19.042) Active confirmed Vital Signs Heart Rate 92 /min 07/13/2024 Temperature 97.9 degrees Fahrenheit 07/13/2024 Blood pressure diastolic 80 mm Hg 07/13/2024 Height 5 ft 5.75 in in 07/13/2024 Blood pressure systolic 112 mm Hg 07/13/2024 Weight 214.6 lbs 07/13/2024 BMI 34.9 kg/m2 07/13/2024 Encounters Encounter Location Date Provider Diagnosis [facility] [address] [place] [address] 05/12/2024 Provider Migration Mixed dyslipidemia E78.2 [facility] [address] [place] [address] 07/13/2024 Veronika McNees Dysuria R30.0 ; Gout y arthritis M10.9 ; Insect bite (nonvenomous) of scalp, initial encounter S00.06XA and Bitten or stung by nonvenomous insect and other nonvenomous arthropods, initial encounter W57.XXXA [facility] [address] [facility] [address] [place] [address] 09/13/2023 Veronika McNees Dysuria R30.0 [facility] [address] [facility] [address] [place] [address] 10/04/2023 Sandrayanelis EvansYoanna Left foot pain M79.6 72 ; Chest wall pain R07.89 ; Acute pain due to trauma G89.11 and Lung nodule R91.1 [facility] [address] [place] [address] 11/01/2023 Sandra Lenz Fibromyalgia M79.7 ; Other chronic pain G89.29 ; History of pulmonary embolism Z86.711 ; Essential hypertension I10 ; Mixed dyslipidemia E78.2 ; Medication monitoring encounter Z51.81 ; Anxiety F41.9 and Urinary incontinence, unspecified type R32 [facility] [address] [facility] [address] [place], [place] [address] 11/08/2023 Sandra Lenz Fibromyalgia M79.7 ; Other chronic pain G89.29 ; History of pulmonary embolism Z86.711 ; Arthritis, multiple joint involvement M12.9 and Degeneration of intervertebral disc of lumbosacral region with discogenic back pain and lower extremity pain M51.372 [facility] [address] [facility] [address] [place] [address] 01/30/2024 Sandrayanelis Lenz Bunion, right foot M21.611 ; Dysuria R30.0 ; Fibromyalgia M79.7 ; Other chronic pain G89.29 ; History of pulmonary embolism Z86.711 ; Essential hypertension I10 and Mixed dyslipidemia E78.2 [facility] [address] [address] 04/04/2024 Sandra Lenz Pain in left knee M25.562 ; Effusion of left knee M25.462 and Other chronic pain G89.29 [facility] [address] [place], [place] [address] 04/24/2024 Veronika Kern Acute gout of left knee, unspecified cause M10.9 [facility] [address] [facility] [address] [place], [place] [address] 04/30/2024 Sandra Lenz Bunion, right foot M21.611 ; Medicare annual wellness visit, subsequent Z00.00 ; Fibromyalgia M79.7 ; Other chronic pain G89.29 ; History of pulmonary embolism Z86.711 ; Essential hypertension I10 ; Mixed dyslipidemia E78.2 ; Obesity (BMI 30.0-34.9) E66.811 ; BMI 34.0-34.9,adult Z68.34 ; Primary osteoarthritis of both knees M17.0 ; Personal history of DVT (deep vein thrombosis) Z86.718 ; Major depress, 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 ; alf current use of anticoagulant Z79.01 ; Vitamin D deficiency E55.9 ; Moderate persistent asthma without complication J45.40 and Immunization(s) administered Z23 [facility] [address] [place] [address] 08/29/2023 Sherif Ridley Fibromyalgia M79.7 [facility] [address] [facility] [address] [place] [address] 09/26/2023 Sherif Besson [facility] [address] [address] 03/13/2024 Sandra Lenz Anxiety F41.9 [facility] [address] [facility] [address] [place] [address] 04/24/2024 Veronika Kern [facility] [address] [place] [address] 05/07/2024 Sherif Besjoelle Visit for screening mammogram Z12.31 and Asymptomatic menopausal state Z78.0 Assessments Encounter Date Diagnosis (ICD Code) Assessment Notes Treatment Notes Treatment Clinical Notes Section Notes 08/29/2023 Fibromyalgia (ICD-10 - M79.7) 09/13/2023 Dysuria (ICD-10 - R30.0) Start antibiotics for presumed UTI as stated above. Will follow-up urine culture for growth and anti-microbial sensitivities. Encouraged to drink plenty of fluids & stay well hydrated. RTC if no improvement after 1-2 days of antibiotic therapy or if febrile or vomiting. Notified coumadin clinic who will monitor INR 10/04/2023 Left foot pain (ICD-10 - M79.672) 11/01/2023 Fibromyalgia (ICD-10 - M79.7) continue cymbalta 11/01/2023 Other chronic pain (ICD-10 - G89.29) tramadol PRN, ALMA DELIA on file. NSAIDS contraindicated due to coumadin use 10/04/2023 Chest wall pain (ICD-10 - R07.89) ED records reviewed, no acute bony injuries noted. Discussed continued splinting of the chest as needed with cough/sneeze/movem ent and importance of pulmonary toilet. FU again in about 4 weeks, sooner with any concerns. 11/08/2023 Fibromyalgia (ICD-10 - M79.7) Discussed that we can no longer continue to prescribe tramadol but for the time being we will continue gabapentin so long as she is compliant with follow-up. This was reviewed with Dr. Ridley. Will continue tramadol over the next month and we discussed appropriate weaning of tramadol over that time. She is already well-established with both pain management and orthopedics and she can certainly discuss additional management with them. She voices understanding and has no additional concerns in this regard. Will continue duloxetine as well. She is not a candidate for oral anti-inflammator ies because of her chronic Coumadin use. 11/08/2023 Other chronic pain (ICD-10 - G89.29) tramadol PRN, ALMA DELIA on file. NSAIDS contraindicated due to coumadin use 01/30/2024 Bunion, right foot (ICD-10 - M21.611) 01/30/2024 Dysuria (ICD-10 - R30.0) 03/13/2024 Anxiety (ICD-10 - F41.9) 04/04/2024 Pain in left knee (ICD-10 - M25.562) 04/04/2024 Effusion of left knee (ICD-10 - M25.462) Continue ice, knee sleeve. _update imaging and labs as noted. Script for topical pain relief cream #2 ([facility]) was sent as well. Will refer to re-establish with orthopedics for known moderate to severe OA of the knee 04/24/2024 Acute gout of left knee, unspecified cause (ICD-10 - M10.9) Likely related to combination of OA and gout. Discussed pathophysiology of gout, avoid cold, discussed varieties of dietary stimuli. Prednisone sent x 5 days. Notified Telly in [facility] who will call patient tomorrow with recommendations. Compounded cream resent to LCP. Keep FU with pain management. 04/30/2024 Medicare annual wellness visit, subsequent (ICD-10 - Z00.00) Well Visit, Ages 18 to 65: Care Instructions material was published, Well Visit, Over 65: Care Instructions material was published, Advance Directives: Care Instructions material was published 04/30/2024 Bunion, right foot (ICD-10 - M21.611) planning surgical intervention with podiatry once knee pain improved and is vasculature is adequate on imaging 07/13/2024 Dysuria (ICD-10 - R30.0) 07/13/2024 Gouty arthritis (ICD-10 - M10.9) 05/07/2024 Visit for screening mammogram (ICD-10 - Z12.31) 05/07/2024 Asymptomatic menopausal state (ICD-10 - Z78.0) 07/13/2024 Insect bite (nonvenomous) of scalp, initial encounter (ICD-10 - S00.06XA) 04/30/2024 Fibromyalgia (ICD-10 - M79.7) continue cymbalta, gabapentin 04/04/2024 Other chronic pain (ICD-10 - G89.29) 11/08/2023 History of pulmonary embolism (ICD-10 - Z86.711) 11/01/2023 History of pulmonary embolism (ICD-10 - Z86.711) 10/04/2023 Acute pain due to trauma (ICD-10 - G89.11) 11/01/2023 Essential hypertension (ICD-10 - I10) well controlled on current regimen 10/04/2023 Lung nodule (ICD-10 - R91.1) noted on chest CT in the ED, recommends 6-12 month FU, established already with pulmonology 11/08/2023 Arthritis, multiple joint involvement (ICD-10 - M12.9) 01/30/2024 Fibromyalgia (ICD-10 - M79.7) continue cymbalta, gabapentin 04/30/2024 Other chronic pain (ICD-10 - G89.29) [facility] on file. NSAIDS contraindicated due to coumadin use 07/13/2024 Bitten or stung by nonvenomous insect and other nonvenomous arthropods, initial encounter (ICD-10 - W57.XXXA) 04/30/2024 History of pulmonary embolism (ICD-10 - Z86.711) following with [facility] 01/30/2024 Other chronic pain (ICD-10 - G89.29) [facility] on file. NSAIDS contraindicated due to coumadin use 11/08/2023 Degeneration of intervertebral disc of lumbosacral region with discogenic back pain and lower extremity pain (ICD-10 - M51.372) 11/01/2023 Mixed dyslipidemia (ICD-10 - E78.2) 11/01/2023 Medication monitoring encounter (ICD-10 - Z51.81) 01/30/2024 History of pulmonary embolism (ICD-10 - Z86.711) following with [facility] 04/30/2024 Essential hypertension (ICD-10 - I10) well controlled on current regimen 04/30/2024 Mixed dyslipidemia (ICD-10 - E78.2) Doing well on pravastatin, intolerant to other statins 05/12/2024 Mixed dyslipidemia (ICD-10 - E78.2) 01/30/2024 Essential hypertension (ICD-10 - I10) well controlled on current regimen 11/01/2023 Anxiety (ICD-10 - F41.9) continue cymbalta both for anxiety and chronic pain 11/01/2023 Urinary incontinence, unspecified type (ICD-10 - R32) Gemtesa 75mg samples provided, discussed importance of weight loss, kegel exercises/streng thening pelvic floor 01/30/2024 Mixed dyslipidemia (ICD-10 - E78.2) Did not tolerate atorvastatin in the past but agrees to a trial of alternate statin therapy. Recommend pravastatin as noted 04/30/2024 Obesity (BMI 30.0-34.9) (ICD-10 - E66.811) complicates all aspects of care. Heart healthy diet encouraged, activity is quite limited 04/30/2024 BMI 34.0-34.9,adult (ICD-10 - Z68.34) 04/30/2024 Primary osteoarthritis of both knees (ICD-10 - M17.0) continue orthopedic and pain management followup 04/30/2024 Personal history of DVT (deep vein thrombosis) (ICD-10 - Z86.718) continue coumadin, [facility] clinic managing 04/30/2024 Major depress, part remis (ICD-10 - F32.4) continue duloxetine 04/30/2024 alf current use of anticoagulant (ICD-10 - Z79.01) 04/30/2024 Vitamin D deficiency (ICD-10 - E55.9) continue oral replacement 04/30/2024 Moderate persistent asthma without complication (ICD-10 - J45.40) pulmonology following 04/30/2024 Immunization(s) administered (ICD-10 - Z23) 04/30/2024 Other Preventing Osteoporosis: Care Instructions material was published Plan Of Treatment Pending Test Test Name Order Date Urinalysis 07/13/2024 X ray : Knee, Left 04/04/2024 X ray : Hip, Left 08/30/2022 N-Stool C Difficile 04/12/2006 N-Stool Culture 04/12/2006 N-Stool O&P 04/12/2006 H-CRP 04/12/2017 DEXA Hip and Spine - Screening N-stool for giardia, crypto antigens, en teric pathogens 04/12/2006 N-stool enteric pathogens 04/12/2006 N-stool enteric pathogens 04/21/2006 Physical Therapy 06/20/2014 Physical Therapy 06/21/2013 Physical Therapy 04/23/2021 Physical Therapy 12/11/2020 Physical Therapy 02/17/2015 Physical Therapy 09/25/2007 Physical Therapy 04/26/2011 Mammogram : Bilateral 10/02/2010 Mammogram : Bilateral 10/12/2012 Mammogram : Bilateral 10/23/2020 Occupational Therapy : Eval & Treatment 07/04/2020 Galactogram: L breast 09/22/2006 H-CBC with AUTO DIFF 07/02/2014 H-CBC with AUTO DIFF 09/22/2015 H-CBC with AUTO DIFF 10/31/2008 H-CBC with AUTO DIFF 03/04/2009 H-CBC with AUTO DIFF 06/21/2013 H-CBC with AUTO DIFF 06/15/2016 H-VITAMIN B12 06/21/2013 H-VITAMIN B12 10/31/2008 H-PT/INR 03/10/2009 H-PT/INR 03/06/2009 H-PT/INR 03/04/2009 H-PT/INR 03/08/2009 H-ANTITHROMBIN III,ANTIGEN 03/04/2009 H-CMP 06/15/2016 H-CMP 06/21/2013 H-CMP 09/22/2015 H-CMP 07/02/2014 H-CMP 10/31/2008 H-BUN 08/06/2014 H-CREATININE SERUM 08/06/2014 H-LIPID PANEL 07/02/2014 H-LIPID PANEL 09/22/2015 H-LIPID PANEL 06/15/2016 H-LIPID PANEL 06/21/2013 H-PROTEIN C ACTIVITY 03/04/2009 H-PROTEIN S ACTIVITY 03/04/2009 H-TSH 06/21/2013 H-TSH 07/02/2014 H-TSH 07/09/2013 H-FREE T3 07/09/2013 H-FREE T4 07/09/2013 H-VIT D, 25-HYDROXY 06/21/2013 H-SED RATE 08/06/2014 H-SED RATE 10/31/2008 H-RHEUMATOID FACTOR 04/14/2017 H-CLAIRE PROFILE 04/14/2017 H-CLAIRE PROFILE 03/04/2009 H-ANTI CARDIOLIPIN AB IGG 03/04/2009 H-CCCP 04/14/2017 Urine Culture, Routine 02/05/2020 M-Complete Blood Count Auto Diff 020 M-Complete Blood Count Auto Diff 021 M-Complete Blood Count Auto Diff 020 M-Complete Blood Count Auto Diff 022 M-Complete Blood Count Auto Diff 023 M-Complete Blood Count Auto Diff 024 M-Complete Blood Count Auto Diff 024 M-Erythrocyte Sedimentation Rate 022 M-INR/PT 03/05/2021 M-INR/PT 11/01/2023 M-INR/PT 05/31/2022 M-INR/PT 07/10/2019 M-INR/PT 07/03/2020 M-INR/PT 01/22/2020 M-Comprehensive Metabolic Panel 07/10/19 20 M-Comprehensive Metabolic Panel 07/04/19 21 M-Comprehensive Metabolic Panel 01/22/20 20 M-Comprehensive Metabolic Panel 06/01/19 23 M-Comprehensive Metabolic Panel 03/07/19 24 M-Comprehensive Metabolic Panel 11/01/19 24 M-Comprehensive Metabolic Panel 03/05/19 22 M-Lipid Panel 11/01/2023 M-Lipid Panel 03/07/2023 M-Lipid Panel 05/31/2022 M-Lipid Panel 03/05/2021 M-Lipid Panel 01/22/2020 M-Lipid Panel 07/10/2019 M-Lipid Panel 07/03/2020 M-Vitamin D 25 Hydroxy 01/22/2020 M-Vitamin D 25 Hydroxy 05/31/2022 M-Vitamin D 25 Hydroxy 03/05/2021 M-RA Latex Turbid. 03/05/2021 M-Urine Culture 07/13/2024 Physical Therapy Eval and Treat 08/31/19 23 Future Test Test Name Order Date H-CPK 02/21/2008 H-CBC with AUTO DIFF 06/14/2012 H-CMP 06/14/2012 H-LIPID PANEL 06/14/2012 Next Appt Details Provider Name:Sandra Hassan ce, 08/06/2024 11:30:00 AM, [address], [address], [place], [address], Insurance Providers Payer Name Payer Address Payer Phone Subscriber Number Group Number Insured Name Patient Relationship to Insured Coverage Start Date Coverage End Date [place] [address] [place] [phone] [id number] [employer], Ebonie Self - patient is the insured [employer] [address] [address] [place] [address] [id number] [employer], Ebonie Self - patient is the insured [employer] [address] [place] [address] [phone] ACL [employer], Ebonie Self - patient is the insured Medications Administered Medication Instructions Date of Administration Dosage Notes Ceftriaxone 500 08/06/2013 500 mg Ceftriaxone 500 10/10/2014 500 mg Dexamethasone 4mg Injection 11/06/2021 4 mg Kenalog 40mg 06/07/2017 40 mg Triamcinolone Acetonide 40mg Injection 04/05/2018 1 mL Triamcinolone Acetonide 40mg Injection 07/10/2019 1 mL Triamcinolone Acetonide 40mg Injection 10/02/2019 1 mL Triamcinolone Acetonide 40mg Injection 11/01/2019 1 mL Triamcinolone Acetonide 40mg Injection 07/03/2020 1 mL Triamcinolone Acetonide 40mg Injection 08/19/2020 1 mL Kenalog 08/06/2013 1 Kenalog 02/12/2014 2 mL Kenalog 10/10/2014 1 mL Kenalog 10/20/2015 1 mL Kenalog 12/30/2015 1 mL Kenalog 03/15/2016 1 mL Medical (General) History Medical History History ICD Code fibromyalgia triggered asthma gerd ibs depression eczema osteoarthritis DVT COPD Pulmonary embolism and infarction, other Last colonoscopy 2002 - Dr Matta, No rmal Cologuard 2017 Chest pain with negative ECHO and lexisc an 06/25 Normal DEXA 2020 asthma Normal mammogram 06/01 Surgical History Surgery Date(Month/Year) Carpel tunnel 1994 Appendectomy 38 yrs ago Hysterectomy 1988 Foot Surgery 5 yrs ago cholecystectomy 2000 Back surgery 2013 Back surgery 07/2015 cologuard-negative 12/2017 left hand 2022 Hospitalization History Reason Date(Month/Year) Appendectomy and Cholecystectomy/back rapp rgery Back surgery 07/2015
== END 2024-07-13 23:59 | disposition home or self-care (01) ==
PROVIDERS: PCP Nurse Practitioner Family; Visit Provider Nurse Practitioner Family
DX: R30.0 Dysuria (principal)
CPT/HCPCS: 87086; 87088; 87186

== ENCOUNTER 2024-09-26 13:16 | Outpatient (POV) | payer MEDICARE, OTHER, SELFPAY ==
--- OUTSIDE RECORDS SUMMARY | 2024-08-06 07:30 | XMS_ITS ---
Author Organization [facility] Address [address] [place], [place] [address] Care Team Providers Care Windmill Technician Name Role Phone Sherif Ridley Primary Care Provider [phone] Sandra Lenz [phone] REASON FOR VISIT 3 month check up Encounters Encounter Location Date Provider Diagnosis [facility] [address] [place] [address] 08/06/2024 Sandra Lenz Plan Of Treatment Next Appt Details Provider Name:Sandra L Sonya ce, 11/22/2024 02:00:00 PM, [address], [address], [place], [place], [address], Progress Notes * Ebonie BLUEDOB:[birth year] (68 yo F)Acc No.[id number]:08/06/2024 Progress Notes Patient: Vernon Ebonie GUARDADO Provider: VALENTINE Virgen :1955 A ge:68 Y S ex:Female Date:08/06/2024 Address:[address], [place] Pcp:Sherif Ridley Subjective: * Chief Complaints: * 1 . 3 month check up. * Medical History: Objective: * Vitals: Assessment: Plan: * Treatment: * * Electronic signature of Katt Lenz APRN on 09/26/2024 at 01:21 PM EDT Sign off status: Pending * Provider: VALENTINE Virgen Date: 08/06/2024 Generated for Emmie jimenez/Ratna/Vic on: 0 09/26/2024 01:21 PM EDT
--- OUTSIDE RECORDS SUMMARY | 2024-08-16 10:30 | XMS_ITS ---
Author Organization [facility] Address [address] [place] [address] Care Team Providers Care Optical Instrument Inspector Name Role Phone Sherif Ridley Primary Care Provider Sandra Lenz [phone] Allergies Allergen (clinical drug ingredient) Drug/Non Drug [...] Drug Allergy A ctive REASON FOR VISIT 3 month Follow up Medications Medication SIG (Take, Route, Frequency, Duration) Notes Start Date End Date Status Flonase Allergy Relief 50 MCG/ACT 2 spray(s) intranasally once a day Active Montelukast Sodium 10 MG 1 tab(s) orally once a day; Duration: 30 day(s) Active Xolair 150 MG as directed subcutaneously every 2 weeks Active PROAIR HFA 90 MCG/INH USE 2 PUFFS EVERY 4 TO 6 HOURS PRNF COUGH/WHEEZE -REFILLS REMAINING >A INHALED 4 TIMES A DAY *Please review for potential replacement for e-prescription and drug interaction check* Active Xyzal Allergy 24HR 5 MG 1 po qd Active Vitamin D3 125 MCG (5000 UT) 1 cap(s) orally once a day Active Aspirin 81 MG 1 TAB(S) ORALLY ONCE A DAY *Please review and pick correct strength-formulat ion from [employer] options. If intended option is not shown, discontinue and re-order from Quick Search* 01/26/2016 Active amLODIPine Besylate 2.5 MG 1 tab orally once a day Active Ipratropium-Albutero l 0.5-2.5 (3) MG/3ML 3 mL by nebulizer tid prn 07/10/2018 Active Azelastine HCl 137 MCG/SPRAY 2 spray(s) intranasally twice a day Active Allopurinol 100 MG 1 tablet Orally Once a day; Duration: 90 days 08/16/2024 Active Acetaminophen 500 MG 2 tab(s) orally felicia ry 6 hours Active Minoxidil 10 MG 1 tablet Orally Once a day Active rOPINIRole HCl 1 MG TAKE 1-2 TABLET BY MOUTH AT BEDTIME Orally Once a day; Duration: 90 days Active predniSONE 20 MG 1 tablet every day for 7 days, then 1/2 tablet daily for 7 days Orally Once a day; Duration: 14 days 08/16/2024 Active DULoxetine HCl 60 MG TAKE 1 CAPSULE BY MOUTH TWICE DAILY; Duration: 90 Active Omeprazole 40 MG 1 cap(s) orally once a day; Duration: 30 days Active Gabapentin 300 MG TAKE 1 CAPSULE BY MOUTH FOUR TIMES DAILY; Duration: 30 07/30/2024 Active Pravastatin Sodium 20 MG 1 tab(s) orally once a day; Duration: 90 days Active Warfarin Sodium 7.5 MG 7.5mg RAPP, TU, WE, SHAHBAZ,SAT. 3.75mg MF orally once a day; Duration: 30 days Active Magnesium 400MG 1 TABLET ONCE A DAY *Please revi ew and pick correct strength-formulat ion from [employer] options. If intended option is not shown, discontinue and re-order from Quick Search* Active busPIRone HCl 10 MG TAKE 1 TABLET BY MOUTH TWICE DAILY; Duration: 30 days Active Amitriptyline HCl 50 MG 1 tab(s) orally once a day (at bedtime); Duration: 30 days Active Social History Tobacco Use: Social History Observation Description Date Details (start date - stop date) Former Smoker NA - NA Smoking: Question Answer Notes Are you a: former smoker How long has it been since you last smoked? 1-5 years Section Notes: Stopped smoking 2015 Problems Problem Type SNOMED Code ICD Code Onset Dates Problem Status W/U Status Risk Notes Problem Restless legs (74449591) RLS (restless legs syndrome) (G25.81) Active confirmed Vital Signs Temperature 97.5 degrees Fahrenheit 08/17/19 25 Blood pressure systolic 98 mm Hg 08/17/19 25 Blood pressure diastolic 74 mm Hg 025 Heart Rate 80 /min 08/16/2024 Height 5 ft 5.75 in in 08/16/2024 Weight 209.8 lbs 08/16/2024 BMI 34.12 kg/m2 08/16/2024 Encounters Encounter Location Date Provider Diagnosis [facility] [address] [place] [address] 08/16/2024 Sandra Lenz Fibromyalgia M79.7 ; Gouty arthritis M10.9 ; Other chronic pain G89.29 ; History of pulmonary embolism Z86.711 ; Essential hypertension I10 ; Primary osteoarthritis of both knees M17.0 ; senior living current use of anticoagulant Z79.01 and RLS (restless legs syndrome) G25.81 Assessments Encounter Date Diagnosis (ICD Code) Assessment Notes Treatment Notes Treatment Clinical Notes Section Notes 08/16/2024 Fibromyalgia (ICD-10 - M79.7) continue cymbalta, gabapentin 08/16/2024 Gouty arthritis (ICD-10 - M10.9) discussed that it is difficult to say if her pain exacerbations are related to gout or OA...rec trial of allopurinol. low dose prednisone for 2 weeks while initiating treatment since she cannot take anti-inflammator ies 08/16/2024 Other chronic pain (ICD-10 - G89.29) ALMA DELIA on file. NSAIDS contraindicated due to coumadin use 08/16/2024 History of pulmonary embolism (ICD-10 - Z86.711) following with [facility] 08/16/2024 Essential hypertension (ICD-10 - I10) well controlled on current regimen 08/16/2024 Primary osteoarthritis of both knees (ICD-10 - M17.0) continue orthopedic and pain management followup 08/16/2024 senior living current use of anticoagulant (ICD-10 - Z79.01) 08/16/2024 RLS (restless legs syndrome) (ICD-10 - G25.81) rec take 1mg with evening meal and 1mg at bedtime Plan Of Treatment Medication Medication Name Sig Start Date Stop Date Notes Allopurinol 100 MG 1 tablet Orally Once a day; Duration: 90 days 08/16/2024 rOPINIRole HCl 1 MG TAKE 1-2 TABLET BY M OUTH AT BEDTIME Orally Once a day; Duration: 90 days predniSONE 20 MG 1 tablet every day f or 7 days, then 1/2 tablet daily for 7 days Orally Once a day; Duration: 14 days 08/16/2024 Treatment Notes Assessment Notes Fibromyalgia continue cymbalta, g abapentin Other chronic pain ALMA DELIA on file. NSAI DS contraindicated due to coumadin use History of pulmonary embolism following with [facility] Cou[facility]in [facility] Essential hypertension well controlled o n current regimen Next Appt Details Follow Up: 3 Months, Reason: labs Provider Name:Sandra Hassan , 11/22/2024 02:00:00 PM, [address], [place], [address], Progress Notes * Ebonie BLUE MartellDOB:[birth year] (68 yo F)Acc No.[id number]:08/16/2024 Progress Notes Patient: Ebonie ZAPATA Provider: VALENTINE Virgen :1955 A ge:68 Y S ex:Female Date:08/16/2024 Address:[address] [place] [address] , [facility] Pcp:Sherif Ridley Subjective: * Chief Complaints: * 1 . 3 month Follow up. * HPI: g en: Presents for chronic disease FU Still reporting pretty severe left knee pain and intermittently with more acute pain and swelling in left knee, painful at rest, worse with weight bearing. Sudden onset about 4 months ago with associated elevated ESR and uric acid, treated as presumed gout with improvement but has since had exacerbation. Following with Pain Management for injections which do provide some relief but also has seen orthopedics who suggested replacement if injections no longer provide relief. Eye exam up to date. Denies any falls, not using any medical assistance devices. She denies any CP, dizziness or LE edema. Shortness of breath is at baseline. No cough or chest congestion. Patient with history of DVT, followed by Coumadin clinic routinely for warfarin management. Mood stable, tolerating cymbalta. D enies new anxiety or depression. taking gabapentin as noted for chronic pain. tramadol discontinued due to THC use. She reports RLS symptoms despite requip at HS which did initially seem helpful but less relief now. * ROS: R ESPIRATORY: Positive for a t baseline, followed by Pulmonology. C ARDIOLOGY: no C hest pain. n o P alpitations. n o L eg edema. C ONSTITUTIONAL: no L oss of appetite. n o F ever. D ERMATOLOGY: no R mary. G ASTROENTEROLOGY: Heartburn y es, B becca with prescription. n o B lood in stool. M USCULOSKELETAL: back pain y es. S ee HPI Y es, f ollowing with PM and Ortho. J oint pain y es. J oint swelling y es. N EUROLOGY: Tingling numbness y es. P SYCHOLOGY: High stress level y es. U ROLOGY: no D ifficulty urinating. n o B lood in urine. n o V oiding dysfunction. * Medical History: F ibromyalgia, Triggered asthma, Gerd, Ibs, Depression, Eczema, Osteoarthritis, DVT, COPD, Pulmonary embolism and infarction, other, Last colonoscopy 2002 - Dr Matta, Normal Cologuard 2017, Chest pain with negative ECHO and lexiscan 06/25, Normal DEXA 2020, Asthma, Normal mammogram 06/01, Murmur - echo 05/2024 without significant valvular disease, Gout. * Surgical History: C arpel tunnel 1994, Appendectomy 38 yrs ago, Hysterectomy 1988, Foot Surgery 5 yrs ago, cholecystectomy 1999, Back surgery 2013, Back surgery 07/2015, cologuard-negative 12/2017, left hand 2022. * Hospitalization/Major Diagno stic Procedure: A ppendectomy and Cholecystectomy/back surgery , Back surgery 07/2015. * Family History: F ather: , heart disease. M other: , lung cancer, diabetes. P aternal Grand Father: , heart disease. P aternal Grand Mother: , Alzheimer. M aternal Grand Father: . M aternal Grand Mother: , cancer. P aternal uncle: alive, heart disease. P aternal aunt: alive, heart disease, breast cancer. M aternal uncle: alive, heart disease. M aternal aunt: alive, heart disease. S iblings: alive, 1 brother PAD, Strokes , 2 brothers have diabetesoldest brother has bladder cancer, diagnosed with Cancer. C branden: alive, daughter-diabetes , cervical cancer. 5 brother(s) , 2 sister(s) . 1 son(s) , 1 daughter(s) - healthy. . One brother diagnosed with bladder cancer. * Social History: S moking: no A re you a: f ormer smoker, H ow long has it been since you last smoked? 1 -5 years. R ecreational drug use: no. Exercise: yes, walks daily. Home smoke detector use: yes. Caffeine: yes, frequency:1-2 cups coffee. Living Will: No. Alcohol: no. Sexually active: no. Travel outside [place]: no. Occupation: disabled. Stopped smoking 2015. * Medications: T aking Minoxidil 10 MG Tablet 1 tablet Orally Once a day , Taking Acetaminophen 500 MG Tablet 2 tab(s) orally [...] *Please review and pick correct strength-formulation from [employer] options. If intended option is not shown, discontinue and re-order from Quick Search*, Taking Warfarin Sodium 7.5 MG Tablet 7.5mg RAPP, TU, WE, SHAHBAZ,SAT. 3.75mg MF orally once a day , Taking rOPINIRole HCl 1 MG Tablet TAKE 1 TABLET BY MOUTH AT BEDTIME , Taking busPIRone HCl 10 MG Tablet TAKE 1 TABLET BY MOUTH TWICE DAILY , Taking Amitriptyline HCl 50 MG Tablet 1 tab(s) orally once a day (at bedtime) , Taking Pravastatin Sodium 20 MG Tablet 1 tab(s) orally once a day , Taking Gabapentin 300 MG Capsule TAKE 1 CAPSULE BY MOUTH FOUR TIMES DAILY , Taking Omeprazole 40 MG Capsule Delayed Release 1 cap(s) orally once a day , Taking DULoxetine HCl 60 MG Capsule Delayed Release Particles TAKE 1 CAPSULE BY MOUTH TWICE DAILY , Discontinued predniSONE 20 MG Tablet 1 tablet Orally twice a day , Discontinued Cefdinir 300 MG Capsule as directed Orally twice a day , Medication List reviewed and reconciled with the patient * Allergies: A ugmentin, Codeine, SULFA, OMNICEF: diarrhea, watery, ADHESIVE, LATEX, BIAXIN, Macrobid: itching - Allergy, Atorvastatin. Objective: * Vitals: N urse: KJ, Pain: 9 knee, Temp: 97.5, RR: 18, HR: 80, BP: 98/74, Ht: 5 ft 5.75 in, Wt: 209.8, BMI:34.12. * Examination: G eneral Examination: General P leasant and Cooperative, NAD on RA,. Oral cavity: D ry mucous membranes. Heart: R egular Rate and Rhythm, no rubs or gallops Murmur noted. Lungs: c lear to auscultation,. Abdomen: s oft, NT/ND, BS present. Neurologic Exam: A lert and oriented x 3. Skin: w ithout acute rashes. Peripheral pulses: d iminished. Extremities: m ild diffuse swelling left knee with limited flexion. Bunions bilat. neck s upple,, no thyromegaly,, no lymphadenopathy,. Psych N ormal Mood/Affect. Assessment: * Assessment: 1. G outy arthritis - M10.9 (Primary) 2 . F ibromyalgia - M79.7 ?3. O ther chronic pain - G89.29 4 . H istory of pulmonary embolism - Z86.711 5 . E ssential hypertension - I10 6 . P rimary osteoarthritis of both knees - M17.0 7 . L elmer term current use of anticoagulant - Z79.01 8 . R LS (restless legs syndrome) - G25.81 Plan: * Treatment: 2. F ibromyalgia Notes: continue cymbalta, gabapentin 3. O ther chronic pain Notes: ALMA DELIA on file. NSAIDS contraindicated due to coumadin use 4. H istory of pulmonary embolism Notes: following with [facility] 5. E ssential hypertension Notes: well controlled on current regimen 6. P rimary osteoarthritis of both knees Clinical Notes: continue orthopedic and pain management followup 7. R LS (restless legs syndrome) Continue rOPINIRole HCl Tablet, 1 MG, TAKE 1-2 TABLET BY MOUTH AT BEDTIME, Orally, Once a day, 90 days, 180, Refills 1. Clinical Notes: rec take 1mg with evening meal and 1mg at bedtime * Follow Up: 3 Months (Reason: labs) * * Sign off status: Completed true * Provider: VALENTINE Virgen Date: 0 08/16/2024 Generated for Emmie jimenez/Ratna/Evelineitting on: 0 09/26/2024 01:21 PM EDT History and Physical Notes * Examination Category Sub-Category Detail Notes Category Not es General Examination Heart: Regular Rate and Rhythm, no rubs or gallops Murmur noted Lungs: clear to auscultatio n, Abdomen: soft, NT/ND, BS pres ent Extremities: mild diffuse swellin g left knee with limited flexion. Bunions bilat Skin: without acute rashes Neurologic Exam: Alert and oriented x 3 Oral cavity: Dry mucous membranes Peripheral pulses: diminished neck supple,, no thyromeg jenna,, no lymphadenopathy, General Pleasant and Coopera tive, NAD on RA, Psych Normal Mood/Affect
--- OUTSIDE RECORDS SUMMARY | 2024-09-26 13:22 | XMS_ITS | Clinical Summary ---
Author Organization [facility] Address [address] [place] [address] Care Team Providers Care Detector Car Operator Name Role Phone Sherif Ridley MD Primary Care Provider [phone] Tommie Gayle MD Unavailable [phone] Allergies Active Allergy Reactions Criticality Noted [...] ophthalmic solution 08/11/19 23 Active HYDROcodone-acetam inophen (Brice) 5-325 MG tablet 06/02/19 23 Active omalizumab [...] mg) by mouth Daily. 01/30/20 24 Active Immunizations Immunization Administration Dates Next Due Influenza, [...] Former Cigarettes 1 40 1 971 - 2007 Passive Smoke Exposure: Past Smokeless Tobacco: Never [...] EDT Appointment [facility] [address] [place] [address] 10/19/2024 1:00 PM EDT Office Visit [facility] [address] [place] [address] Willy Wise MD [address] [place] [id number] Health Maintenance Due Date Last Done Comments [facility]-Bone Density Scan 1955 [facility]-Hepatitis C Screening 1955 [facility]-Medicare Annual Wellness (AWV) 1955 [facility]-Infant/Child/Adol SDOH Screenings 1955 [facility]- SDOH Screenings 1974 [facility]-Adult SDOH Screenings 1974 [facility]-DTaP,Tdap,and Td Vaccines (1 - Tdap) 09/28/1975 CT Colonography 2001 Colonoscopy 2001 FIT-DNA 2001 FIT 2001 FOBT 2001 Sigmoidoscopy 2001 [facility]-Colorectal Cancer Screening 2001 [facility]-Breast Cancer Screening 2006 [facility]-RSV Vaccine: 60+ Years or (1 - Risk 60-74 years 1-dose series) 2016 [id number] Vaccine (3 - Moderna risk series) 06/18/2020 05/21/2020, 04/23/2020 [facility]-Pneumococcal Vaccine: 50+ Years (3 of 3 - PCV20 or PCV21) 03/30/2024 03/30/2019, 02/22/2018, 11/19/2016 [facility]-Zoster Vaccines (2 of 2) 06/25/2024 04/30/2024 [facility]-Depression Screening 10/06/2024 10/07/2023, 09/09 [facility]-Influenza Vaccine (#1) 10/08/202404/30, 12/02/2022, 12/08/2021, Additional history exists [facility]-Lung Cancer Screening Discontinued [...] MEDICO MEDICARE SUPPLEMENT MEDICO C/[place] [id number] Care Teams Detector Car Operator Relationship Specialty Start Date End Date Sherif Ridley MD [address] [place] [address] PCP - General 06/20/20 Tommie Gayle MD [address] [place] [address] Surgeon Neurosurgery 12/01/21
--- OUTSIDE RECORDS SUMMARY | 2024-09-26 13:22 | XMS_ITS | Clinical Summary ---
Author Organization [facility] Address [address] [place] [address] Care Team Providers Care Parking Assistant Name Role Phone Provider, No Known Primary Care Provider Unavail able Allergies Active Allergy Reactions Criticality Noted Date Comments Latex Rash Low 05/11/2022 Medications ondansetron ODT (ZOFRAN-ODT) [address] 1 tablet on the tongue Every 8 (Eight) Hours As Needed. 15 tablet 05/11/2022 10:25 AM EDT 3 Active oxyCODONE-acetamino phen (PERCOCET) 10-325 MG per tablet Take 1 tablet by mouth every six hours as needed for pain 15 tablet 05/11/2022 10:25 AM EDT 3 Active Social History Tobacco Use Types Packs/Day Years Used Date Smoking Tobacco: Never Assessed Abuse Screen Answer Date Recorded Unsafe at Home or Work/School Not on file Feels Threatened by Someone? Not on file 10/2022 Does Anyone Keep You from Co ntacting Others or Doint Things Outside the Home? Not on file 11/15/2022 Physical Sign of Abuse Present Not on file 1 Housing Stability Answer Date Recorded Current Living Arrangements Not on file 10/2022 Potentially Unsafe Housing Conditions Not on joyce e 11/15/2022 Family and Community Support Answer John e Recorded Help with Day-to-Day Activities Not on file 11/15/2022 Lonely or Isolated Not on file 11/15/2022 Employment Answer Date Recorded Do you want help finding or keeping work or a savita b? Not on file 11/15/2022 Disabilities Answer Date Recorded Concentrating, Remembering, or Making Decisions Difficulty Not on file 11/15/2022 Doing Errands Independently Difficulty Not on fi le 11/15/2022 Education Answer Date Recorded Help with school or training? Not on file Preferred Language Not on file 11/15/2022 Comments Unknown Sex and Gender Information Value Date Recorded Sex Assigned at Not on file Legal Sex Female 12:40 PM EDT Gender Identity Not on file Sexual Orientation Not on file Plan of Treatment Health Maintenance Due Date Last Done Comments DXA SCAN 1955 TDAP/TD VACCINES (1 - Tdap) 09/28/1975 MAMMOGRAM 1996 COLOGUARD 2001 COLON CANCER SCREENING 5 YEA R SIGMOIDOSCOPY 2001 COLONOSCOPY [address] CANCER SCREENING [address] COLONOGRAPHY 2001 FECAL OCCULT BLOOD TEST 2001 FIT Testing (1 year) 2001 ZOSTER VACCINE (1 of 2) 2006 ANNUAL PHYSICAL 05/21/2022 HEPATITIS C SCREENING 05/21/2022 Pneumococcal Vaccine 50+ (3 of 3 - PCV20 or PCV21) 02/22/2023 02/22/2018, 11/19/2016 COVID-19 Vaccine ( - season) 2023 INFLUENZA VACCINE 11/07/2024 10/23/2020, 10/23/2019 Insurance MEDICARE A & B [employer] [place] [id number] Care Teams Parking Assistant Relationship Specialty Start Date End Date Provider, [place] [address] PCP - General 05/21/22
--- OUTSIDE RECORDS SUMMARY | 2024-09-26 13:22 | XMS_ITS | Patient Health Record ---
Author Organization [facility] Address [address] [place] [address] Care Team Providers Care Stem Lead Former Name Role Phone Sherif Ridley Primary Care Provider Sandra Lenz Unavailable [phone] Veronika [place] Unavailable [phone] Migration, Provider Unavailable Unavailable Allergies Allergen (clinical [...] ctive Results Component Value Reference Range Notes X ray : Foot, Left Reviewed date:10/05/2023 [...] is for medical purposes and/or treatment only. M-Complete Blood Count Auto Diff Reviewed date:01/12/2024 [...] 0.3 0.0-0.4 K/mm3 BA# 0.1 0-0.2 K/mm3 M-Comprehensive Metabolic Pa kumar Reviewed date:01/12/2024 05:33:10 [...] AGRATIO 1.6 1.1-1.8 ALP 85 38-126 U/L M-Lipid Panel Reviewed date:01/12/2024 05:33:10 PM Interpretation: Performing Lab: Notes/Report: Patient Fasting? Y TRIG 114 30-150 mg/dl CHOL 222 140-200 mg/dl DLDL 143.39 100-129 mg/dL VLDL 23 0-40 mg/dL HDL 54 40-60 mg/dl CHLHDL 4.1 1-3.5 M-INR/PT Reviewed date:01/10/2024 01:08:56 PM Interpretation: Performing Lab: Notes/Report: PT 25.1 10.1-12.5 seconds INR 2.45 0.9-1.1 INDICATION INR RANGE Therapy for DVT, PE, Atrial Fib, 2.0-3.0 Prophylaxis for VTE. Therapy for Mechanical Heart Valve, 2.5-3.5 Prevention of Sytemic Emolism secondary to AMI. Urinalysis Reviewed date:01/30/2024 01:26:11 PM Interpretation: Performing Lab: Notes/Report: Color/Clarity julianna Leuk neg Nitrite positive Urobili 0.2 Protein neg pH 5.0 Blood neg Sp. Gr. 1.020 Ketone neg Bili neg Glucose neg CULTURE, URINE, ROUTINE (395 ) Reviewed date:02/01/2024 07:12:41 PM Interpretation: Performing Lab:KEVIN, [facility] [id number] [facility], [facility] Wes Oakley Notes/Report: NON-FASTING CULTURE, URINE, ROUTINE SEE NOTE CULTURE, URINE, ROUTINE Micro Number: [id number] Test Status: Final Specimen Source: Urine Specimen Quality: Adequate Result: Mixed genital leonardo isolated. These superficial bacteria are not indicative of a urinary tract infection. No further organism identification is warranted on this specimen. If clinically indicated, recollect clean-catch, mid-stream urine and transfer immediately to Urine Culture Transport Tube. M-PHA INR Fingerstick Reviewed date:03/23/2024 02:02:08 PM [...] PREVENTION OF SYSTEMIC EMBOLISM SECONDARY TO AMI M-Uric Acid Reviewed date:04/10/2024 08:55:43 AM Interpretation: Performing Lab: Notes/Report: URIC 6.6 2.5-6.2 mg/dl M-Basic Metabolic Panel Reviewed date:04/10/2024 08:55:43 AM Interpretation: Performing Lab: Notes/Report: NA 139 136-145 mmol/L K 4.2 3.5-5.1 mmoL/L CL 108 98-107 mmol/L CO2 23 22.0-30.0 mmol/L GAP 12.2 5-15 mEq/L BUN 15 7-17 mg/dl CREATT 0.70 0.52-1.04 mg/dl CRCLE 81 50-200 mL/min GFRAA 101 >60 ML/MIN EGFR 83 >60 ml/min GLU 80 74-100 mg/dl CA 9.1 8.4-10.2 mg/dl M-Complete Blood Count Auto Diff Reviewed date:04/10/2024 [...] 82 0-30 mm/hr M-PHA INR Fingerstick Reviewed date:05/04/2024 11:52:38 AM Interpretation: Performing Lab: Notes/Report: POCINRFS 2.6 0.9-1.1 Results sent to: Sherif Ridley MD Pharmacist recommendation for Warfarin therapy is: INR TODAY VIA FINGERSTICK IS 2.6. RECOMMEND CONTINUING CURRENT WEEKLY DOSE OF WARFARIN AT 3.75MG MO/FR AND 7.5MG ALL OTHER DAYS. PATIENT WILL F/U IN 6 WEEKS. FOR DETAILED INFORMATION-PLEASE REVIEW PROGRESS NOTE IN THE ASSESSMENTS AND ANTICOAGULATION CLINIC SECTION ANTICOAGULATION CLINIC IN PCI/CLINICAL REVIEW INDICATION INR RANGE THERAPY FOR DVT, PE, ATRIAL FIB; 2.0 - 3.0 PROPHYLAXIS FOR VTE THERAPY FOR MECHANICAL HEART 2.5 - 3.5 VALVE; PREVENTION OF SYSTEMIC EMBOLISM SECONDARY TO AMI DEXA Hip and Spine - Screeni ng Reviewed date:05/17/2024 09:05:04 AM Interpretation: Performing Lab: Notes/Report: DEXA Hip and Spine - Screeni ng Reviewed date:05/17/2024 09:05:04 AM Interpretation: Performing Lab: Notes/Report: Mammogram : [...] date:05/18/2024 09:33:52 AM Interpretation: Performing Lab: Notes/Report: Urinalysis Reviewed date:07/13/2024 04:26:13 PM Interpretation: Performing Lab: Notes/Report: Color/Clarity julianna Leuk small Nitrite neg Urobili 0.2 Protein neg pH 6.0 Blood neg Sp. Gr. >=1.030 Ketone neg Bili neg Glucose neg M-Urine Culture Reviewed date:07/18/2024 10:28:10 AM Interpretation: Performing Lab: Notes/Report: CUU ORGANISM 1: Klebsiel la pneumoniae RX JACQUES: R- Resistant S- Susceptible I- Intermediate * Not on [facility]U [place] Count >100,000 RX JACQUES: R- Resistant S- Susceptible I- Intermediate * Not on [facility] CUU RX JACQUES: R- Resistant S- Susceptible I- Intermediate * Not on [facility] CUU RX JACQUES: R- Resistant S- Susceptible I- Intermediate * Not on [facility] CUU Klebsiella pneumonia e: REACTION RX JACQUES: R- Resistant S- Susceptible I- Intermediate * [facility]8 [facility] RX JACQUES: R- Resistant S- Susceptible I- Intermediate * [facility] Ampicillin >16 R RX JACQUES: R- Resistant S- Susceptible I- Intermediate * [facility] Aztreonam <=2 S RX JACQUES: R- Resistant S- Susceptible I- Intermediate * [facility] Cefepime <=1 S RX JACQUES: R- Resistant S- Susceptible I- Intermediate * [facility] Ceftazidime <=2 S RX JACQUES: R- Resistant S- Susceptible I- Intermediate * [facility] Ceftriaxone <=1 S RX JACQUES: R- Resistant S- Susceptible I- Intermediate * [facility] Ciprofloxacin <=0.25 S RX JACQUES: R- Resistant S- Susceptible I- Intermediate * [facility] Ertapenem <=0.25 S RX JACQUES: R- Resistant S- Susceptible I- Intermediate * [facility] Gentamicin <=2 S RX JACQUES: R- Resistant S- Susceptible I- Intermediate * [facility] Levofloxacin <=0.5 S RX JACQUES: R- Resistant S- Susceptible I- Intermediate * [facility] Meropenem <=0.5 S RX JACQUES: R- Resistant S- Susceptible I- Intermediate * [facility] Nitrofurantoin 64 I RX JACQUES: R- Resistant S- Susceptible I- Intermediate * [facility] Tetracycline <=2 S RX JACQUES: R- Resistant S- Susceptible I- Intermediate * [facility] Tobramycin <=2 S RX JACQUES: R- Resistant S- Susceptible I- Intermediate * Not on [facility] Trimethoprim/Sulfame tho xazole <=0.5/9.5 S RX JACQUES: R- Resistant S- Susceptible I- Intermediate * [facility] Piperacillin/Tazobac roman 4/4 S RX JACQUES: R- Resistant S- Susceptible I- Intermediate * [facility] RX JACQUES: R- Resistant S- Susceptible I- Intermediate * Not on [facility] Medications Medication SIG (Take, Route, Frequency, Duration) Notes Start Date End Date Status Amitriptyline HCl 50 MG 1 tab(s) orally once a day (at bedtime); Duration: 30 days Active Montelukast Sodium 10 MG 1 tab(s) orally once a day; Duration: 30 day(s) Active Omeprazole 40 MG 1 cap(s) orally once a day; Duration: 30 days Active Xolair 150 MG as directed subcutaneously every 2 weeks Active Gabapentin 300 MG TAKE 1 CAPSULE BY MOUTH FOUR TIMES DAILY; Duration: 07/30/2024 Active PROAIR HFA 90 MCG/INH USE 2 PUFFS EVERY 4 TO 6 HOURS PRNF COUGH/WHEEZE -REFILLS REMAINING >A INHALED 4 TIMES A DAY *Please review for potential replacement for e-prescription and drug interaction check* Active Xyzal Allergy 24HR 5 MG 1 po qd Active Pravastatin Sodium 20 MG 1 tab(s) orally once a day; Duration: 90 days Active Allopurinol 100 MG 1 tablet Orally Once a day; Duration: 90 days 08/16/2024 Active Vitamin D3 125 MCG (5000 UT) 1 cap(s) orally once a day Active Aspirin 81 MG 1 TAB(S) ORALLY ONCE A DAY *Please review and pick correct strength-formulat ion from [employer] options. If intended option is not shown, discontinue and re-order from Quick Search* 01/26/2016 Active Warfarin Sodium 7.5 MG 7.5mg RAPP, TU, WE, SHAHBAZ,SAT. 3.75mg MF orally once a day; Duration: 30 days Active Acetaminophen 500 MG 2 tab(s) orally felicia ry 6 hours Active Magnesium 400MG 1 TABLET ONCE A DAY *Please revi ew and pick correct strength-formulat ion from [employer] options. If intended option is not shown, discontinue and re-order from Quick Search* Active Minoxidil 10 MG 1 tablet Orally Once a day Active Flonase Allergy Relief 50 MCG/ACT 2 spray(s) intranasally once a day Active DULoxetine HCl 60 MG TAKE 1 CAPSULE BY MOUTH TWICE DAILY; Duration: 90 Active busPIRone HCl 10 MG TAKE 1 TABLET BY MOUTH TWICE DAILY; Duration: 30 days Active amLODIPine Besylate 2.5 MG 1 tab orally once a day Active rOPINIRole HCl 1 MG TAKE 1-2 TABLET BY MOUTH AT BEDTIME Orally Once a day; Duration: 90 days Active Ipratropium-Albutero l 0.5-2.5 (3) MG/3ML 3 mL by nebulizer tid prn 07/10/2018 Active predniSONE 20 MG 1 tablet every day for 7 days, then 1/2 tablet daily for 7 days Orally Once a day; Duration: 14 days 08/16/2024 Active Azelastine HCl 137 MCG/SPRAY 2 spray(s) intranasally twice a day Active Immunizations Vaccine Route Administration Date Status Comme nts SHINGRIX IM Intramuscular 04/30/2024 Administered Prevnar PCV-13 (Pneumococcal conjugate 13) IM Intramuscular 02/22/2018 Administered Pneumovax 23 IM Intramuscular 11/19/2016 Administered Pneumovax 23 IM Intramuscular 11/06/2021 Administered Pneumococcal Vaccine IM Intramuscular 12/21/2010 Administe red Influenza-Fluzone 3+years (NON-MEDICARE) IM Intramuscular 01/22/2015 Administered Influenza-Fluzone 3+years (NON-MEDICARE) IM Intramuscular 02/22/2018 Administered Influenza Intradermal ID Intradermal 12/21/2010 Administer ed Influenza (Fluzone)--Medicare only IM Intramuscular 11/19/2016 Administered Fluzone High Dose IM Intramuscular 11/06/2021 Administered Fluzone High Dose IM Intramuscular 12/02/2022 Administered Fluzone High Dose IM Intramuscular 04/30/2024 Administered FLUZONE 6MO - OLDER IM Intramuscular 10/23/2020 Administer ed Fluvirin--Influenza vaccine 3+ year Unknown 03/06/2007 Administered Fluvirin--Influenza vaccine 3+ year IM Intramuscular 11/22/2012 Administered Social History Tobacco Use: Social History Observation Description Date Details (start date - stop date) Former Smoker NA - NA Smoking: Question Answer Notes Are you a: former smoker How long has it been since you last smoked? 1-5 years Section Notes: Stopped smoking 2015 Stopped smoking 2015 Stopped smoking 2015 Stopped smoking 2015 Stopped smoking 2015 Stopped smoking 2015 Stopped smoking 2015 Stopped smoking 2015 Stopped smoking 2015 Problems Problem Type SNOMED Code ICD Code Onset Dates Problem Status W/U Status Risk Notes Problem Information temporarily unavailable Bipolar disorder, current episode depressed, mild or moderate severity, unspecified (F31.30) Active confirmed Problem Information temporarily unavailable Psychophysiologic insomnia (F51.04) Active confirmed Problem Information temporarily unavailable Other chronic pain (G89.29) Active confirmed Problem Information temporarily unavailable Fibromyalgia (M79.7) Active confirmed Problem Information temporarily unavailable Depression with anxiety (F41.8) Active confirmed Problem Information temporarily unavailable Anxiety (F41.9) Active confirmed Problem Information temporarily unavailable Vitamin D deficiency (E55.9) Active confirmed Problem Information temporarily unavailable Tobacco use disorder (Z72.0) Active confirmed Problem Information temporarily unavailable Onychomycosis (B35.1) Active confirmed Problem Information temporarily unavailable Hyperlipidemia LDL goal <100 (E78.5) Active confirmed Problem Information temporarily unavailable Essential hypertension (I10) Active confirmed Problem Information temporarily unavailable Seasonal allergies (J30.2) Active confirmed Problem Information temporarily unavailable Asthma (J45.909) Active confirmed Problem Information temporarily unavailable COPD exacerbation (J44.1) Active confirmed Problem Information temporarily unavailable RLS (restless legs syndrome) (G25.81) Active confirmed Problem Information temporarily unavailable BMI 34.0-34.9,adult (Z68.34) Active confirmed Problem Information temporarily unavailable BMI 31.0-31.9,adult (Z68.31) Active confirmed Problem Information temporarily unavailable Other chronic pain (G89.29) Active confirmed Problem Information temporarily unavailable BMI 32.0-32.9,adult (Z68.32) Active confirmed Problem Information temporarily unavailable BMI 30.0-30.9,adult (Z68.30) Active confirmed Problem Information temporarily unavailable Arthritis, multiple joint involvement (M12.9) Active confirmed Problem Information temporarily unavailable Gastroesophageal reflux disease, esophagitis presence not specified (K21.9) Active confirmed Problem Information temporarily unavailable Primary osteoarthritis of both knees (M17.0) Active confirmed Problem Information temporarily unavailable Primary osteoarthritis of left knee (M17.12) Active confirmed Problem Information temporarily unavailable BMI 36.0-36.9,adult (Z68.36) Active confirmed Problem Information temporarily unavailable Moderate persistent asthma without complication (J45.40) Active confirmed Problem Information temporarily unavailable Left knee tendonitis (M76.892) Active confirmed Problem Information temporarily unavailable Moderate persistent asthma with acute exacerbation (J45.41) Active confirmed Problem Information temporarily unavailable Lung nodule (R91.1) Active confirmed Problem Information temporarily unavailable Gouty arthritis (M10.9) Active confirmed Problem Information temporarily unavailable 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) Active confirmed Problem Information temporarily unavailable Lumbar disc herniation (M51.26) Active confirmed Problem Information temporarily unavailable Current tobacco use (Z72.0) Active confirmed Problem Information temporarily unavailable History of pulmonary embolism (Z86.711) Active confirmed Problem Information temporarily unavailable Personal history of DVT (deep vein thrombosis) (Z86.718) Active confirmed Problem Information temporarily unavailable Chronic constipation (K59.09) Active confirmed Problem Information temporarily unavailable Menopausal disorder (N95.9) Active confirmed Problem Information temporarily unavailable Urinary incontinence, unspecified type (R32) Active confirmed Problem Information temporarily unavailable Recurrent frontal sinusitis (J01.11) Active confirmed Problem Information temporarily unavailable Major depress, 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) Active confirmed Problem Information temporarily unavailable Mixed dyslipidemia (E78.2) Active confirmed Problem Information temporarily unavailable Common bile duct dilation (K83.8) Active confirmed Problem Information temporarily unavailable Arthritis of left hand (M19.042) Active confirmed Vital Signs Heart Rate 80 /min 08/16/2024 Temperature 97.5 degrees Fahrenheit 08/16/2024 Blood pressure diastolic 74 mm Hg 08/16/2024 Height 5 ft 5.75 in in 08/16/2024 Blood pressure systolic 98 mm Hg 08/16/2024 Weight 209.8 lbs 08/16/2024 BMI 34.12 kg/m2 08/16/2024 Encounters Encounter Location Date Provider Diagnosis [facility] [address] [place] [address] 05/12/2024 Provider Migration Mixed dyslipidemia E78.2 [facility] [address] [place] [address] 10/04/2023 Sandra Evansence Left foot pain M79.6 72 ; Chest wall pain R07.89 ; Acute pain due to trauma G89.11 and Lung nodule R91.1 [facility] [address] [place] [address] 11/01/2023 Sandra Lenz Fibromyalgia M79.7 ; Other chronic pain G89.29 ; History of pulmonary embolism Z86.711 ; Essential hypertension I10 ; Mixed dyslipidemia E78.2 ; Medication monitoring encounter Z51.81 ; Anxiety F41.9 and Urinary incontinence, unspecified type R32 [facility] [address] [place], [place] [address] 11/08/2023 Sandra Lenz Fibromyalgia M79.7 ; Other chronic pain G89.29 ; History of pulmonary embolism Z86.711 ; Arthritis, multiple joint involvement M12.9 and Degeneration of intervertebral disc of lumbosacral region with discogenic back pain and lower extremity pain M51.372 [facility] [address] [place] [address] 01/30/2024 Sandra Lenz Bunion, right foot M21.611 ; Dysuria R30.0 ; Fibromyalgia M79.7 ; Other chronic pain G89.29 ; History of pulmonary embolism Z86.711 ; Essential hypertension I10 and Mixed dyslipidemia E78.2 [facility] [address] [address] 04/04/2024 Sandra Evansence Pain in left knee M25.562 ; Effusion of left knee M25.462 and Other chronic pain G89.29 [facility] [address] [place] [address] 04/24/2024 Veronika [place] Acute gout of left knee, unspecified cause M10.9 [facility] [address] [place] [address] 04/30/2024 Sandra Lenz Bunion, right foot M21.611 [...] ; Major depress, 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 ; snf current use of anticoagulant Z79.01 ; Vitamin D deficiency E55.9 ; Moderate persistent asthma without complication J45.40 and Immunization(s) administered Z23 [facility] [address] [place] [address] 07/13/2024 Veronika [place] Dysuria R30.0 ; Gout y arthritis M10.9 ; Insect bite (nonvenomous) of scalp, initial encounter S00.06XA and Bitten or stung by nonvenomous insect and other nonvenomous arthropods, initial encounter W57.XXXA [facility] [address] [place] [address] 08/16/2024 Sandra Lenz Fibromyalgia M79.7 ; Gouty arthritis M10.9 ; Other chronic pain G89.29 ; History of pulmonary embolism Z86.711 ; Essential hypertension I10 ; Primary osteoarthritis of both knees M17.0 ; snf current use of anticoagulant Z79.01 and RLS (restless legs syndrome) G25.81 [facility] [address] [address] 03/13/2024 Sandra Lenz Anxiety F41.9 [facility] [address] [place] [address] 04/24/2024 Veronika McNees [facility] [address] [place] [address] 05/07/2024 Sherif Ridley Visit for screening mammogram Z12.31 and Asymptomatic menopausal state Z78.0 [facility] [address] [address] 07/18/2024 Sherif Ridley [facility] [address] [address] 07/30/2024 Sherif Ridley Assessments Encounter Date Diagnosis (ICD Code) Assessment Notes Treatment Notes Treatment Clinical Notes Section Notes 10/04/2023 Left foot pain (ICD-10 - M79.672) [...] Script for topical pain relief cream #2 ([facility]) was sent as well. Will refer [...] tomorrow with recommendations. Compounded cream resent to [facility]. Keep FU with pain management. 04/30/2024 Medicare [...] on imaging 07/13/2024 Dysuria (ICD-10 - R30.0) UA inconclusive. Symptoms improving, continue to force po fluids while awaiting CX results. Return precautions discussed. 07/13/2024 Gouty arthritis (ICD-10 - M10.9) Treat for gout flare right knee. Informed Telly at who will adjust coumadin dose and notify patient. Discussed pathophysiology of gout discussed varieties of dietary stimuli. 08/16/2024 Fibromyalgia (ICD-10 - M79.7) continue cymbalta, gabapentin 05/07/2024 Visit for screening mammogram (ICD-10 - Z12.31) 08/16/2024 Gouty arthritis (ICD-10 - M10.9) discussed that it is difficult to say if her pain exacerbations are related to gout or OA...rec trial of allopurinol. low dose prednisone for 2 weeks while initiating treatment since she cannot take anti-inflammator ies 05/07/2024 Asymptomatic menopausal state (ICD-10 - Z78.0) 08/16/2024 Other chronic pain (ICD-10 - G89.29) [facility] on file. NSAIDS contraindicated due to coumadin use 07/13/2024 Insect bite (nonvenomous) of scalp, initial encounter (ICD-10 - S00.06XA) Reassurance tick bite site unremarkable. Discussed s/s including bull's eye rash that warrants urgent FU 04/30/2024 Fibromyalgia (ICD-10 - M79.7) continue cymbalta, [...] nonvenomous arthropods, initial encounter (ICD-10 - W57.XXXA) 08/16/2024 History of pulmonary embolism (ICD-10 - Z86.711) following with [facility] 08/16/2024 Essential hypertension (ICD-10 - I10) well controlled on current regimen 04/30/2024 History of pulmonary embolism (ICD-10 - Z86.711) following with [facility] 01/30/2024 Other chronic pain (ICD-10 - G89.29) [facility] on file. NSAIDS contraindicated due to coumadin use 11/08/2023 Degeneration of intervertebral disc of lumbosacral region with discogenic back pain and lower extremity pain (ICD-10 - M51.372) 11/01/2023 Mixed dyslipidemia (ICD-10 - E78.2) 11/01/2023 Medication monitoring encounter (ICD-10 - Z51.81) 01/30/2024 History of pulmonary embolism (ICD-10 - Z86.711) following with [facility] 04/30/2024 Essential hypertension (ICD-10 - I10) well controlled on current regimen 08/16/2024 Primary osteoarthritis of both knees (ICD-10 - M17.0) continue orthopedic and pain management followup 08/16/2024 snf current use of anticoagulant (ICD-10 - Z79.01) 05/12/2024 Mixed dyslipidemia (ICD-10 - E78.2) 04/30/2024 Mixed dyslipidemia (ICD-10 - E78.2) Doing well on pravastatin, intolerant to other statins 01/30/2024 Essential hypertension (ICD-10 - I10) well [...] healthy diet encouraged, activity is quite limited 08/16/2024 RLS (restless legs syndrome) (ICD-10 - G25.81) rec take 1mg with evening meal and 1mg at bedtime 04/30/2024 BMI 34.0-34.9,adult (ICD-10 - Z68.34) 04/30/2024 Primary osteoarthritis of both knees (ICD-10 - M17.0) continue orthopedic and pain management followup 04/30/2024 Personal history of DVT (deep vein thrombosis) (ICD-10 - Z86.718) continue coumadin, [facility] clinic managing 04/30/2024 Major depress, part remis (ICD-10 - F32.4) continue duloxetine 04/30/2024 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 (ICD-10 - Z79.01) 04/30/2024 Vitamin D deficiency (ICD-10 - E55.9) continue oral replacement 04/30/2024 Moderate persistent asthma without complication (ICD-10 - J45.40) pulmonology following 04/30/2024 Immunization(s) administered (ICD-10 - Z23) 04/30/2024 Other Preventing Osteoporosis: Care Instructions material was published Plan Of Treatment Pending Test Test Name Order Date X ray : Knee, Left 04/04/2024 X ray : Hip, Left 08/30/2022 N-Stool C Difficile 04/12/2006 N-Stool Culture 04/12/2006 N-Stool O&P 04/12/2006 H-CRP 04/12/2017 DEXA Hip and Spine - Screening N-stool for giardia, crypto antigens, en teric pathogens 04/12/2006 N-stool enteric pathogens 04/12/2006 N-stool enteric pathogens 04/21/2006 Physical Therapy 12/11/2020 Physical Therapy 04/23/2021 Physical Therapy 02/17/2015 Physical Therapy 06/20/2014 Physical Therapy 06/21/2013 Physical Therapy 04/26/2011 Physical Therapy 09/25/2007 Mammogram : Bilateral 10/12/2012 Mammogram : Bilateral 10/02/2010 Mammogram : Bilateral 10/23/2020 Occupational Therapy : Eval & Treatment 07/04/2020 Galactogram: L breast 09/22/2006 H-CBC with AUTO DIFF 07/02/2014 H-CBC with AUTO DIFF 06/21/2013 H-CBC with AUTO DIFF 03/04/2009 H-CBC with AUTO DIFF 10/31/2008 H-CBC with AUTO DIFF 06/15/2016 H-CBC with AUTO DIFF 09/22/2015 H-VITAMIN B12 10/31/2008 H-VITAMIN B12 06/21/2013 H-PT/INR 03/10/2009 H-PT/INR 03/04/2009 H-PT/INR 03/08/2009 H-PT/INR 03/06/2009 H-ANTITHROMBIN III,ANTIGEN 03/04/2009 H-CMP 06/15/2016 H-CMP 09/22/2015 H-CMP 06/21/2013 H-CMP 07/02/2014 H-CMP 10/31/2008 H-BUN 08/06/2014 H-CREATININE SERUM 08/06/2014 H-LIPID PANEL 07/02/2014 H-LIPID PANEL 06/21/2013 H-LIPID PANEL 09/22/2015 H-LIPID PANEL 06/15/2016 H-PROTEIN C ACTIVITY 03/04/2009 H-PROTEIN S ACTIVITY 03/04/2009 H-TSH 07/09/2013 H-TSH 07/02/2014 H-TSH 06/21/2013 H-FREE T3 07/09/2013 H-FREE T4 07/09/2013 H-VIT D, 25-HYDROXY 06/21/2013 H-SED RATE 10/31/2008 H-SED RATE 08/06/2014 H-RHEUMATOID FACTOR 04/14/2017 H-CLAIRE PROFILE 04/14/2017 H-CLAIRE PROFILE 03/04/2009 H-ANTI CARDIOLIPIN AB IGG 03/04/2009 H-CCCP 04/14/2017 Urine Culture, Routine 02/05/2020 M-Complete Blood Count Auto Diff 022 M-Complete Blood Count Auto Diff 020 M-Complete Blood Count Auto Diff 021 M-Complete Blood Count Auto Diff 020 M-Complete Blood Count Auto Diff 024 M-Complete Blood Count Auto Diff 023 M-Complete Blood Count Auto Diff 024 M-Erythrocyte Sedimentation Rate 022 M-INR/PT 07/10/2019 M-INR/PT 03/05/2021 M-INR/PT 05/31/2022 M-INR/PT 11/01/2023 M-INR/PT 01/22/2020 M-INR/PT 07/03/2020 M-Comprehensive Metabolic Panel 07/04/19 21 M-Comprehensive Metabolic Panel 01/22/20 20 M-Comprehensive Metabolic Panel 03/07/19 24 M-Comprehensive Metabolic Panel 11/01/19 24 M-Comprehensive Metabolic Panel 06/01/19 23 M-Comprehensive Metabolic Panel 07/10/19 20 M-Comprehensive Metabolic Panel 03/05/19 22 M-Lipid Panel 03/05/2021 M-Lipid Panel 07/10/2019 M-Lipid Panel 03/07/2023 M-Lipid Panel 11/01/2023 M-Lipid Panel 01/22/2020 M-Lipid Panel 07/03/2020 M-Lipid Panel 05/31/2022 M-Vitamin D 25 Hydroxy 01/22/2020 M-Vitamin D 25 Hydroxy 05/31/2022 M-Vitamin D 25 Hydroxy 03/05/2021 M-RA Latex Turbid. 03/05/2021 Physical Therapy Eval and Treat 08/31/19 23 Future Test Test Name Order Date H-CPK 02/21/2008 H-CBC with AUTO DIFF 06/14/2012 H-CMP 06/14/2012 H-LIPID PANEL 06/14/2012 Next Appt Details Provider Name:Sandra Valdes Sonya ce, 11/22/2024 02:00:00 PM, [address], [address], [place], [address], Insurance Providers Payer Name Payer Address Payer Phone Subscriber Number Group Number Insured Name Patient Relationship to Insured Coverage Start Date Coverage End Date [place] [address] [place] [address] [id number] [employer], Ebonie Self - patient is the insured [employer] [address] [address] [place] [address] [id number] [employer], Ebonie Self - patient is the insured [employer] [address] [place] [address] [phone] ACL [employer], Ebonie Self - patient [...] Normal DEXA 2020 asthma Normal mammogram 06/01 Murmur - echo 05/2024 without significant valvular disease Gout Surgical History Surgery Date(Month/Year) Carpel tunnel 1994 Appendectomy 38 yrs ago Hysterectomy 1988 Foot Surgery 5 yrs ago cholecystectomy 2000 Back surgery 2014 Back surgery 07/2015 cologuard-negative 12/2017 left hand 2022 Hospitalization History Reason Date(Month/Year) Appendectomy and Cholecystectomy/back rapp rgery Back surgery 07/2015
--- NOTE | 2024-09-26 13:42 | A.OFFVIS_ITS ---
[facility] Disclaimer: The information contained in this section may have been updated after the patient was seen, as this information can be updated by other users. 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 Granulomatous lung disease Diastolic dysfunction HLD (hyperlipidemia) Fatigue UTI (urinary tract infection) HTN (hypertension) COPD (chronic obstructive pulmonary disease) Pulmonary embolism DVT (deep venous thrombosis) Eustachian tube dysfunction Allergies History of sinus problem Fibromyalgia Arthritis Migraines Anxiety and depression UTI (urinary tract infection) Kidney stones Hiatal hernia GERD (gastroesophageal reflux disease) Gallbladder disease Pulmonary embolism COPD (chronic obstructive pulmonary disease) Lung disease Asthma Clotting disorder Hypertension DVT (deep venous thrombosis) Fatigue HLD (hyperlipidemia) Abnormal EKG SOB (shortness of breath) Chest pain Surgical History Previous back surgery x2 H/O sinus surgery H/O total hysterectomy History of esophagogastroduodenoscopy (EGD) History of colonoscopy Hx of cholecystectomy Hx of appendectomy History of tonsillectomy History of bilateral carpal tunnel release H/O left breast biopsy H/O cardiac catheterization Family History Other Family history of alcoholism Family history of asthma Family history of bleeding disorder Family history of cancer Family history of diabetes mellitus (DM) Family history of hyperlipidemia Family history of hypertension Family history of myocardial infarction Family history of stroke Family history of substance abuse Social History Smoking Status: Never smoker second hand exposure: No alcohol intake: current alcohol intake frequency: holidays/special occasions only substance use type: denies use current occupational status: other Travel in the last 8 weeks?: None household members: spouse housing: house current occupational exposures/hazards: Yes caffeine: Yes PM Subjective & Objective Subjective Subjective:: Patient is a pleasant 68-year-old female who presents today for worsening bilateral knee pain. Patient does state that it is still that same pain we have been treating her for however it is just so severe currently. She states it is a 10 out of 10 and that she cannot get any improvement due to the worsening pain. She states it is worse with increased activity. Patient denies any previous knee replacement. Patient has gotten significant relief from her intra-articular injections in the past and does state that she would like to be scheduled again for these injections as it really does help improve her function. Patient has continued conservative therapy with no additional relief. She is prescribed gabapentin from an outside provider and compounded cream from our office. Her Oneal has been reviewed and is appropriate. Review of Systems: General: No recent weight changes, no fever, no sleep disturbances Respiratory: No cough, no shortness of air, no recurring pulmonary infections Cardiovascular/peripheral vascular: No chest pain, no palpitations, no edema, no shortness of breath Gastrointestinal: No new onset incontinence, normal bowel movements reported Genitourinary: No new onset incontinence Musculoskeletal: Bilateral knee pain Psychiatric: [Normal mood/affect] Neurological: [Denies weakness in extremities], [denies balance issues] Pain at rest (0-10 scale): 10 Objective Objective:: Physical Exam: General: Alert and oriented x3, no acute distress, pleasant and cooperative Lungs: Respirations even and unlabored, symmetrical chest expansion Eyes: PERRL Musculoskeletal: Flexion and extension of bilateral knees somewhat guarded secondary to pain, [antalgic gait noted] Neurological: Speech clear, no gross sensory deficit Has patient had previous pain injection?: No Conservative treatment options previously tried: Home exercise plan Length of treatment: Longer than 12 weeks Meds Home Medications and Allergies Home Medications ?Medication ?Instructions ?Recorded ?Confirmed ?Type cholecalciferol (vitamin D3) 25 4,000 unit PO DAILY Pelayo pplement 05/24/17 06/28/24 History mcg (1,000 unit) capsule duloxetine 60 mg capsule,delayed 60 mg PO BID Depressi on 05/24/17 06/28/24 History release fluticasone propionate 50 9.9 ml intranasal DAILY hilario rgies 05/24/17 06/28/24 History mcg/actuation nasal spray,suspension montelukast 10 mg tablet 10 mg PO PM Asthma 05/24/17 06/28/24 History aspirin 81 mg tablet,delayed 81 mg PO HS Blood thinner 12/19/18 06/28/24 History release levocetirizine 5 mg tablet 5 mg PO HS Allergy symptoms 12/19/18 06/28/24 History ondansetron 4 mg disintegrating 4 mg PO Q8HP PRN Nause a ##20 02/07/19 06/28/24 Rx tablet albuterol sulfate 90 mcg/actuation 2 puffs inhalation Q4HP PRN 04/10/19 06/28/24 History aerosol inhaler Shortness Of Breath Or Wheez ing fluticasone 500 mcg-salmeterol 50 1 puff inhalation BI D COPD 03/25/20 06/28/24 History mcg/dose blistr powdr for inhalation magnesium 250 mg tablet 250 mg PO DAILY Supplement 0 04/30/20 06/28/24 History gabapentin 300 mg capsule 300 mg PO TID nerve pain 06/28/24 History warfarin 5 mg tablet 7.5 mg PO DAILY BLOOD CLOTS 04/29/21 06/28/24 History amitriptyline 50 mg tablet 50 mg PO HS MOOD 04/29/22 0 06/28/24 History ropinirole 1 mg tablet 1 mg PO HS Pain 04/29/22 History amlodipine 5 mg tablet See Rx Instructions .Route 0 10/17/23 06/28/24 Rx .COMPLEX #90 tabs omeprazole 20 mg capsule,delayed 20 mg PO DAILY GERD # 90 caps 01/24/24 06/28/24 Rx release buspirone 10 mg tablet 10 mg PO DAILY 05/07/2406/08 History pravastatin 20 mg tablet 20 mg PO DAILY 05/07/2406/08 History New Prescriptions to Start Prescriptions: Allergies Allergy/AdvReac Type Severity Reaction Status Date / Time Sulfa (Sulfonamide Allergy Severe Hives Verified 05/07/24 14:53 Antibiotics) adhesive Allergy Unknown S-BLISTERING Verified 05/07/24 14:53 WELTS amoxicillin (From Augmentin) Allergy Unknown Rash Verified 05/07/24 14:53 cefdinir Allergy Unknown I-RASH Verified 05/07/24 14:53 clarithromycin Allergy Unknown I-RASH Verified 05/07/24 14:53 clavulanic acid Allergy Unknown Rash Verified 05/07/24 14:53 codeine Allergy Unknown NA-NAUSEA/V Verified 05/07/24 14:53 OMITING latex Allergy Unknown S-BLISTERING Verified 05/07/24 14:53 WELTS nitrofurantoin (From Allergy Unknown Unknown Verified 05/07/24 14:53 Macrobid) allergy reaction sulfamethoxazole (From Allergy Unknown I-RASH,DIAR Verified 05/07/24 14:53 Bactrim) HEA trimethoprim (From Bactrim) Allergy Unknown I-RASH,DIAR Verified 05/07/24 14:53 MARY JO Assessment and Plan *Assessment and plan (1) Bilateral knee pain: Status: Acute Qualifiers: Chronicity: chronic Qualified Code(s): M25.561 - Pain in right knee; M25.562 - Pain in left knee; G89.29 - Other chronic pain Category: Medical Code(s): M25.561 - Pain in right knee; M25.562 - Pain in left knee Plan Patient is experiencing worsening pain in their bilateral knees with limited range of motion. I did children counselor the patient that I do believe they would benefit from intra-articular knee injections. Risk and benefits were discussed with the patient and the patient would like to proceed forward with this plan of care. Patient has had chronic knee pain for longer than 3 months. Patient has tried and failed conservative therapy including oral medication, heat and ice, topicals, physical therapy and continued at home stretching exercises for longer than 12 weeks. Patient did have her last intra-articular knee injections in April that did provide 99% improvement and have lasted up until the last few weeks. Patient did have improved overall function with decreased pain. Patient will be scheduled for bilateral intra-articular knee injection without fluoroscopic or ultrasound guidance. Patient has been instructed to contact the clinic with any concerns before the next appointment. Dr. Walls has reviewed this note and agrees with this plan of care. This note was dictated using voice recognition software and make contain errors or omissions. All injections are used with Lidocaine, Bupivacaine and dexamethasone. Occasionally urine drug screen is needed to verify patient's compliance with our office pain contract. This is ordered based off specific treatments related to chronic pain with the potential to abuse certain medications.
[2024-09-26 13:51] VITALS: BP 127/74; PULSE 79; RESP 14; O2SAT 95; BMI 34.1
== END 2024-09-26 23:59 | disposition home or self-care (01) ==
LOC: SC.PAIN 13:18
PROVIDERS: PCP Nurse Practitioner Family; Visit Provider Nurse Practitioner Family
DX: M25.561 Pain in right knee (principal); M25.562 Pain in left knee; G89.29 Other chronic pain; Z79.899 Other long term (current) drug therapy
CPT/HCPCS: 99212; G0463

== ENCOUNTER 2024-09-28 15:18 | Day surgery (SDC) | payer MEDICARE, OTHER, SELFPAY ==
--- NOTE | 2024-09-28 15:58 | P.PCN_ITS ---
Procedure Date: 09/28/24 Time: 16:04 Anesthesiologist:: Mary Dyson APRN Complications:: None Pre-procedure Diagnosis:: Chronic bilateral knee pain Post-procedure Diagnosis:: Same Indications for Procedure:: Patient is a pleasant 69-year-old female who presents today for bilateral intra-articular knee injections. She denies any new changes from her follow-up appointment earlier this week. Her Oneal has been reviewed and is appropriate. Physical Exam: General: Alert and oriented x3, no acute distress, pleasant and cooperative Lungs: Respirations even and unlabored, symmetrical chest expansion Eyes: PERRL Musculoskeletal: Flexion and extension of bilateral knees somewhat guarded secondary to pain, [antalgic gait noted] Neurological: Speech clear, no gross sensory deficit Procedure Details:: Procedure: Informed consent was obtained and risk and benefits of the procedure was explained to the patient. Patient was taken to the procedure room. Her right knees was prepped using ChloraPrep. A 25-gauge needle was used first me dially then laterally to inject 5 mL's bupivacaine 0.25%, lidocaine 1% and dexamethasone 10 mg. Patient tolerated the procedure well with no complications. Patient's then left knee was prepped using ChloraPrep and the process was repeated with another 5 mL of bupivacaine 0.25%. tions., 1% lidocaine and dexamethasone 10 mg injected.Patient tolerated the procedure well with no complica Plan and Disposition:: Patient tolerated the procedure well with no complications and was discharged neurologically intact. patient will return to clinic in 2 weeks for reevaluation of symptoms and plan of care. Patient has been instructed to contact the clinic with any concerns before the next appointment. Dr. Walls has reviewed this note and agrees with this plan of care. This note was dictated using voice recognition software and make contain errors or omissions. All injections are used with Lidocaine, Bupivacaine and dexamethasone. Occasionally urine drug screen is needed to verify patient's compliance with our office pain contract. This is ordered based off specific treatments related to chronic pain with the potential to abuse certain medications.
[2024-09-28 16:05] VITALS: BP 120/74; PULSE 68; RESP 16; O2SAT 97; BMI 34.1
[2024-09-28] MEDS: BUPIVACAINE 0.25% 10ML INJ 25 MG IJ (16:10)
[2024-09-28] MEDS: DEXAMETHASONE 10MG/ML 1ML VIAL 10 MG (16:10)
[2024-09-28] MEDS: LIDOCAINE 1% 5ML PF VIAL 5 ML (16:10)
[2024-09-28 16:12] VITALS: BP 120/74; PULSE 68; RESP 18; O2SAT 97
== END 2024-09-28 16:16 | disposition home or self-care (01) ==
PROVIDERS: PCP Nurse Practitioner Family; Visit Provider Nurse Practitioner Family
DX: G89.29 Other chronic pain (principal); M25.562 Pain in left knee; M25.561 Pain in right knee; I10 Essential (primary) hypertension; J44.9 Chronic obstructive pulmonary disease, unspecified; Z86.718 Personal history of other venous thrombosis and embolism; M79.7 Fibromyalgia; K21.9 Gastro-esophageal reflux disease without esophagitis; E78.5 Hyperlipidemia, unspecified; Z79.82 Long term (current) use of aspirin; Z79.899 Other long term (current) drug therapy; Z79.01 Long term (current) use of anticoagulants; Z88.2 Allergy status to sulfonamides; Z88.1 Allergy status to other antibiotic agents; Z91.040 Latex allergy status
CPT/HCPCS: 20610; J0665; J1100; J2003

== ENCOUNTER 2024-12-10 13:56 | Outpatient (CLI) | payer MEDICARE, OTHER, SELFPAY ==
--- OUTSIDE RECORDS SUMMARY | 2024-05-12 16:30 | XMS_ITS ---
Author Organization [facility] Address [address] [place] [address] Care Team Providers Care Hand Coremaker Name Role Phone Sherif Ridley Primary Care Provider [phone] Sandra Lenz Unavailable [phone] Migration, Provider Unavailable Unavailable Allergies Allergen (clinical drug ingredient) Drug/Non Drug Allergy documented on EMR Reaction Allergy Type Onset Date Status ADHESIVE (uncoded) Unknown Allergy A ctive BIAXIN (uncoded) Unknown Allergy Act mario Latex LATEX (uncoded) Unknown Allergy Acti ve OMNICEF (uncoded) diarrhea, watery Allergy Active SULFA (uncoded) Unknown Allergy Acti ve amoxicillin / clavulanate Augmentin Unknown Drug Allergy Active nitrofurantoin, macrocrystals / nitrofurantoin, monohydrate Macrobid itching Drug Allergy Active codeine Codeine Unknown Drug Allergy Active atorvastatin Atorvastatin Unknown Drug Allergy A ctive REASON FOR VISIT [facility] Conversion Encounter Medications Medication SIG (Take, Route, Frequency, Duration) Notes Start Date End Date Status busPIRone HCl 10 MG 1 tab(s) orally 2 times a day; Duration: 30 days Active Gabapentin 300 MG 1 cap(s) orally 4 times a day; Duration: 30 day(s) 02/28/2024 Active Omeprazole 40 MG 1 cap(s) orally once a day; Duration: 30 days Active DULoxetine HCl 60 MG 1 cap(s) orally 2 times a day; Duration: 90 days Active Warfarin Sodium 7.5 MG 7.5mg RAPP, TU, WE, SHAHBAZ,SAT. 3.75mg MF orally once a day; Duration: 30 days Active Amitriptyline HCl 50 MG 1 tab(s) orally once a day (at bedtime); Duration: 30 days Active rOPINIRole HCl 1 MG 1 tab(s) orally at bedtime; Duration: 90 days Active Magnesium 400MG 1 TABLET ONCE A DAY *Please revi ew and pick correct strength-formulat ion from [employer] options. If intended option is not shown, discontinue and re-order from Quick Search* Active Flonase Allergy Relief 50 MCG/ACT 2 spray(s) intranasally once a day Active Montelukast Sodium 10 MG 1 tab(s) orally once a day; Duration: 30 day(s) Active Xyzal Allergy 24HR 5 MG 1 po qd Active amLODIPine Besylate 2.5 MG 1 tab orally once a day Active Pravastatin Sodium 20 MG 1 tab(s) orally once a day; Duration: 90 days Active Xolair 150 MG as directed subcutaneously every 2 weeks Active PROAIR HFA 90 MCG/INH USE 2 PUFFS EVERY 4 TO 6 HOURS PRNF COUGH/WHEEZE -REFILLS REMAINING >A INHALED 4 TIMES A DAY *Please review for potential replacement for e-prescription and drug interaction check* Active Ipratropium-Albutero l 0.5-2.5 (3) MG/3ML 3 mL by nebulizer tid prn 07/10/2018 Active Azelastine HCl 137 MCG/SPRAY 2 spray(s) intranasally twice a day Active Vitamin D3 125 MCG (5000 UT) 1 cap(s) orally once a day Active Aspirin 81 MG 1 TAB(S) ORALLY ONCE A DAY *Please review and pick correct strength-formulat ion from [employer] options. If intended option is not shown, discontinue and re-order from Quick Search* 01/26/2016 Active Acetaminophen 500 MG 2 tab(s) orally felicia ry 6 hours Active Encounters Encounter Location Date Provider Diagnosis [facility] [address] [place] [address] 05/12/2024 Provider Migration Mixed dyslipidemia E78.2 Assessments Encounter Date Diagnosis (ICD Code) Assessment Notes Treatment Notes Treatment Clinical Notes Section Notes 05/12/2024 Mixed dyslipidemia (ICD-10 - E78.2) Plan Of Treatment Medication Medication Name Sig Start Date Stop Date Notes Pravastatin Sodium 20 MG 1 tab(s) orally once a day; Duration: 90 days Progress Notes * Ebonie BLUE JDOB:[birth year] (69 yo F)Acc No.[id number]:05/12/2024 Patient: Ebonie ZAPATA Provider: Cara Gupta :1955 A ge:68 Y S ex:Female Date:05/12/2024 Address:[address] [place] [address] , [place], [id number] Pcp:Sherif Ridley Subjective: * Chief Complaints: * [facility] . [facility]. * Medical History: * Medications: T aking Acetaminophen 500 MG Tablet 2 tab(s) orally every 6 hours , Taking Aspirin 81 MG TABLET 1 TAB(S) ORALLY ONCE A DAY , Notes to Pharmacist: *Please review and pick correct strength-formulation from [employer] options. If intended option is not shown, discontinue and re-order from Quick Search*, Taking Vitamin D3 125 MCG (5000 UT) Capsule 1 cap(s) orally once a day , Taking Azelastine HCl 137 MCG/SPRAY Solution 2 spray(s) intranasally twice a day , Taking Ipratropium-Albuterol 0.5-2.5 (3) MG/3ML Solution 3 mL by nebulizer tid prn , Taking amLODIPine Besylate 2.5 MG Tablet 1 tab orally once a day , Taking Xyzal Allergy 24HR 5 MG Tablet 1 po qd , Taking PROAIR HFA 90 MCG/INH AEROSOL USE 2 PUFFS EVERY 4 TO 6 HOURS PRNF COUGH/WHEEZE -REFILLS REMAINING >A INHALED 4 TIMES A DAY , Notes to Pharmacist: *Please review for potential replacement for e-prescription and drug interaction check*, Taking Xolair 150 MG Solution Reconstituted as directed subcutaneously every 2 weeks , Taking Montelukast Sodium 10 MG Tablet 1 tab(s) orally once a day , Taking Flonase Allergy Relief 50 MCG/ACT Suspension 2 spray(s) intranasally once a day , Taking Magnesium 400MG 1 TABLET ONCE A DAY , Notes to Pharmacist: *Please review and pick correct strength-formulation from [facility] options. If intended option is not shown, discontinue and re-order from Quick Search*, Taking rOPINIRole HCl 1 MG Tablet 1 tab(s) orally at bedtime , Taking Amitriptyline HCl 50 MG Tablet 1 tab(s) orally once a day (at bedtime) , Taking DULoxetine HCl 60 MG Capsule Delayed Release Particles 1 cap(s) orally 2 times a day , Taking Omeprazole 40 MG Capsule Delayed Release 1 cap(s) orally once a day , Taking Gabapentin 300 MG Capsule 1 cap(s) orally 4 times a day , Taking busPIRone HCl 10 MG Tablet 1 tab(s) orally 2 times a day , Taking Warfarin Sodium 7.5 MG Tablet 7.5mg RAPP, TU, WE, SHAHBAZ,SAT. 3.75mg MF orally once a day * Allergies: A ugmentin, Codeine, SULFA, OMNICEF: diarrhea, watery, ADHESIVE, LATEX, BIAXIN, Macrobid: itching - Allergy, Atorvastatin. Objective: * Vitals: Assessment: * Assessment: 1. M ixed dyslipidemia - E78.2 Plan: * Treatment: * * Electronic signature of Prov ider Migration on 12/10/2024 at 02:09 PM EST Sign off status: Pending * Provider: Cara gomez Migration Date: 0 05/12/2024 Generated for Emmie jimenez/Ratna/Vic on: 02/10/2024 02:09 PM EST
--- OUTSIDE RECORDS SUMMARY | 2024-08-06 06:30 | XMS_ITS ---
Author Organization [facility] Address [address] [place] [address] Care Team Providers Care Church Administrator Name Role Phone Sherif Ridley Primary Care Provider [phone] Sandra Lenz Unavailable [phone] REASON FOR VISIT 3 month check up Encounters Encounter Location Date Provider Diagnosis [facility] [address] [place], [place] [address] 08/06/2024 Sandra Lenz Plan Of Treatment No Information Progress Notes * Ebonie BLUEDOB:[birth year] (69 yo F)Acc No.[id number]:08/06/2024 Progress Notes Patient: Vernon GUARDADO Ebonie Moura Provider: VALENTINE Virgen :1955 A ge:68 Y S ex:Female Date:08/06/2024 Address:[facility] [place] Pcp:Sherif Ridley Subjective: * Chief Complaints: * 1 . 3 month check up. * Medical History: Objective: * Vitals: Assessment: Plan: * Treatment: * * Electronic signature of Katt Lenz APRN on 12/10/2024 at 02:08 PM EST Sign off status: Pending * Provider: VALENTINE Virgen Date: 0 08/06/2024 Generated for Emmie jimenez/Ratna/Vic on: 1 02/10/2024 02:08 PM EST
--- OUTSIDE RECORDS SUMMARY | 2024-10-19 10:24 | XMS_ITS | Encounter Summary ---
Author Organization [facility] Address [address] [place] [address] Care Team Providers Care Machine Plug Shaper Name Role Phone Sherif Ridley MD Primary Care Provider [phone] Tommie Gayle MD Unavailable [phone] Reason for Referral * Imaging (Routine) - Closed Specialty Diagnoses / Procedures Referred By Shena kennedy Referred To Contact Radiology Diagnoses History of tobacco abuse Procedures CT Chest Lung Cancer Screening Willy Wise MD [address] [place] [id number] Phone: tel: fax: Referral ID Status Reason Start Date Expiration Date Visits Re quested Visits Authorized [id number] Closed 10/07/2023 04/07/2025 1 1 Reason for Visit * Imaging (Routine) - Closed Specialty Diagnoses / Procedures Referred By Shena kennedy Referred To Contact Radiology Diagnoses History of tobacco abuse Procedures CT Chest Lung Cancer Screening Willy Wise MD [address] [place] [phone] Phone: tel: fax: Referral ID Status Reason Start Date Expiration Date Visits Re quested Visits Authorized [id number] Closed 10/07/2023 04/07/2025 1 1 Encounter Details Date Type Department Care Team (Latest Contact Info) Description 10/19/2024 11:24 AM EDT - 10/19/2024 11:59 PM EDT Hospital Encounter [facility] [address] [place] [address] History of tobacco abuse Discharge Disposition: Home or Self Care Social History Tobacco Use Types Packs/Day Years Used Date Smoking Tobacco: Former Cigarettes 1 37 1 971 - 2007 Passive Smoke Exposure: Past Smokeless Tobacco: Never Tobacco Cessation:Counseling Given: Not Answered Alcohol Use Standard Drinks/Week Comments Yes 1 (1 standard drink = 0.6 oz pur e alcohol) once /2x a mo PHQ-2 Answer Date Recorded Patient Health Questionnaire-2 Score 0 10/19/2024 PHQ-9 Answer Date Recorded Patient Health Questionnaire-9 Score 0 10/19/2024 PHQ-2A Answer Date Recorded Depression Risk 0 10/07/2023 Comments Unknown Sex and Gender Information Value Date Recorded Sex Assigned at Female 12/01/2021 9:44 AM EDT Legal Sex Female 8:43 PM EDT Gender Identity Female 12/01/2021 9:44 AM EDT Sexual Orientation Straight 12/01/2021 9: 44 AM EDT documented as of this encounter Functional Status * Over the past 2 weeks, how often have you been bothered by any of the following problems? Question Answer Date of Assessment Author Little interest or pleasure in doing things Not at all 10/19/2024 12:21 PM EDT Portillo, Tempest A Feeling down, depressed, or hopeless Not at all 10/19/2024 12:21 PM EDT Portillo, Tempest A Patient Health Questionnaire -2 Score 0 10/19/2024 12:21 PM EDT Portillo, Tempest A * Question Answer Date of Assessment Author Trouble falling or staying asleep, or sleeping too much Not at all 10/19/2024 12:21 PM EDT Portillo, Tempest A Feeling tired or having to le energy Not at all 10/19/2024 12:21 PM EDT Portillo, Tempest A Poor appetite or overeating Not at all 10/19/2024 12 :21 PM EDT Portillo, Tempest A Feeling bad about yourself - or that you are a failure or have let yourself or your family down Not at all 10/19/2024 12:21 PM EDT Gracie Hyman A Trouble concentrating on thi ngs, such as reading the newspaper or watching television Not at all 10/19/2024 12:21 PM EDT Gracie Portillo A Moving or speaking so slowly that other people could have noticed? Or the opposite - being so fidgety or restless that you have been moving around a lot more than usual. Not at all 10/19/2024 12:21 PM EDT Gracie Portillo A Thoughts that you would be better off or hurting yourself in some way Not at all 10/19/2024 12:21 PM EDT Gracie Portillo A Patient Health Questionnaire -9 Score 0 10/19/2024 12:21 PM EDT Gracie Portillo A * How difficult have these problems made it for you to do your work, take care of things at home, or get along with other people? Answer Date of Assessment Author Not difficult at all 10/19/2024 12:21 PM EDT Gracie Hyman A documented as of this encounter Medications at Time of Discharge Advair Diskus 500-50 MCG/ACT diskus inhaler 2 albuterol 108 (90 Base) MCG/ACT inhaler 2 albuterol 108 (90 Base) MCG/ACT inhaler 5 allopurinol (Zyloprim) 100 MG tablet 1 (one) time each day at the same time. 5 amitriptyline (Elavil) 50 MG tablet 2 amLODIPine (Norvasc) 5 MG tablet 2 amoxicillin (Amoxil) 500 MG capsule 3 Aspirin 81 MG capsule 1 tab(s) orally once a day atorvastatin (Lipitor) 20 MG tablet 2 atorvastatin (Lipitor) 20 MG tablet 1 tab(s) orally once a day Azelastine HCl 137 MCG/SPRAY solution 2 busPIRone (Buspar) 10 MG tablet Take 1 tablet (10 mg) by mouth 2 (two) times a day. Cholecalciferol (D3-1000 PO) 1 (one) time each day at the same time. cholecalciferol (Vitamin D-3) 10 MCG (400 UNIT) capsule 1 cap(s) orally once a day dicyclomine (Bentyl) 10 MG capsule 2 dicyclomine (Bentyl) 10 MG capsule 1 cap orally 4 times a day PRN dorzolamide-timolol (Cosopt) 22.3-6.8 MG/ML ophthalmic solution 3 doxycycline (Vibramycin) 100 MG capsule 5 DULoxetine (Cymbalta) [address] capsule 2 DULoxetine (Cymbalta) [address] capsule 5 EPINEPHrine (Epipen) 0.3 MG/0.3ML injection syringe 2 fluticasone (Flonase) 50 MCG/ACT nasal spray 06/02/19 2 2 fluticasone-salmete rol (Advair Diskus) 250-50 MCG/ACT diskus inhaler Inhale 1 puff twice a day by inhalation route. fluticasone-salmete rol (Advair Diskus) 500-50 MCG/ACT diskus inhaler Inhale 1 puff twice a day by inhalation route. furosemide (Lasix) 40 MG tablet 5 gabapentin (Neurontin) 300 MG capsule 2 gabapentin (Neurontin) 600 MG tablet 5 hydroCHLOROthiazide (HYDRODiuril) 25 MG tablet 5 HYDROcodone-acetami nophen ([place]) 5-325 MG tablet 3 ipratropium-albuter ol (Duo-Neb) 0.5-2.5 mg/3 mL nebulizer solution 6 latanoprost (Xalatan) 0.005 % ophthalmic solution 06/11/19 2 2 levocetirizine (Xyzal) 5 MG tablet 06/14/19 2 2 Magnesium 400 MG capsule 1 (one) time each day at the same time. metaxalone (Skelaxin) 800 MG tablet 5 metaxalone (Skelaxin) 800 MG tablet 1 tab(s) orally 2 times a day as needed for muscle spasm for 30 days minoxidil (Loniten) 10 MG tablet Take 1 tablet by mouth. mometasone (Nasonex) 50 MCG/ACT nasal spray 01/24/20 1 5 mometasone-formoter ol (Dulera) 200-5 MCG/ACT inhaler 6 montelukast (Singulair) 10 MG tablet 2 montelukast (Singulair) 10 MG tablet 5 mupirocin (Bactroban) 2 % ointment 5 nitrofurantoin, macrocrystal-monohy drate, (Macrobid) 100 MG capsule 2 omalizumab (Xolair) 150 MG injection as directed subcutaneously every 2 weeks omeprazole (PriLOSEC) [address] capsule 2 omeprazole (PriLOSEC) [address] capsule 1 cap(s) orally once a day omeprazole (PriLOSEC) [address] capsule 5 ondansetron (Zofran) 8 MG tablet may take one take one by mouth 6-8 hours as needed for nausea 6 ondansetron ODT (Zofran-ODT) 8 MG disintegrating tablet 3 Ospemifene (Osphena) 60 MG tablet 5 oxybutynin (Ditropan) 5 MG tablet oxybutynin XL (Ditropan-XL) 5 MG 24 hr tablet 6 oxyCODONE-acetamino phen (Percocet) 10-325 MG tablet 3 oxyCODONE-acetamino phen (Percocet) 5-325 MG tablet 6 piroxicam (Feldene) 20 MG capsule 5 potassium chloride CR (Klor-Con M20) 20 MEQ ER tablet 5 rOPINIRole (Requip) 1 MG tablet 2 simvastatin (Zocor) 20 MG tablet 5 Spiriva Respimat 1.25 MCG/ACT aerosol solution 3 terbinafine (LamISIL) 250 MG tablet 5 tiZANidine (Zanaflex) 2 MG tablet 1 traMADol (Ultram) 50 MG tablet traMADol (Ultram) 50 MG tablet 2 traMADol ER (Ultram-ER) 300 MG 24 hr tablet 5 varenicline (Chantix) 1 MG tablet 6 warfarin (Coumadin) 5 MG tablet 1 warfarin (Coumadin) 5 MG tablet 5 warfarin (Coumadin) 7.5 MG tablet 2 documented as of this encounter Miscellaneous Notes * Progress Notes - Gabrielle Herrera RN - 10/19/2024 11:30 AM EDT LUNG CANCER SCREENING PROGRAM ANNUAL NOTE Ebonie Blue is an established patient in the Lung Cancer Screening Program referred by Willy Wise MD Lung Cancer Risk Factor Profile Age: 69 y.o. Sex: female Ht Readings from Last 1 Encounters: 04/13/24 1.664 m (5' 5.5 ) Wt Readings from Last 1 Encounters: 04/13/24 95.6 kg (210 lb 12.2 oz) Smoking History: Her smoking status has not changed since her last visit. Tobacco Use History[1] E-Cigarette/Vaping E-Cigarette Use Never User Symptoms: History question Answer Diagnosis Date Comment Fever No Fever 09/25/2021 Weight Loss No Weight loss 09/25/2021 Cough Yes Cough Hemoptysis No Hemoptysis 09/25/2021 Shortness of Breath Yes Shortness of breath Sputum Production Yes Sputum production New Cancer Diagnosis Since Last Visit: Chest CT Since Last Visit: The patient has not had a chest CT since the last screening visit. Results of scan: IMPRESSION: Stable small subpleural pulmonary nodules are likely benign. Moderate coronary artery calcifications. Aortic valve and mitral annulus calcifications also. Recommendations: LungRADS 2: Benign appearance or behavior - CT Chest Lung Cancer Screening recommended in 12 months. Modifier: S - Moderate coronary artery calcifications. Aortic valve and mitral annulus calcifications also. CRITICAL RESULT: No. [facility] Internal Review of outside scan: NA Smoking Cessation: Smoking cessation has been addressed by PCP/Referring Physician and she is not using Nicotine Replacement. Smoking cessation was discussed during screening consultation and patient elected to do the following: Smoking cessation is not needed at this time time Shared Medical Decision Making: Discussion of risk and benefits of lung cancer screening were reviewed during today's conversation.Risks and benefits will again be reviewed with the patient immediately prior to the screening exam. Screening Plan: annual 10/19/2024 [1] Tobacco Use Smoking Status Former Current packs/day: 0.00 Average packs/day: 1 pack/day for 37.0 years (37.0 ttl pk-yrs) Types: Cigarettes Start date: 1970 Quit date: 2007 Years since quittin.7 Passive exposure: Past Smokeless Tobacco Never documented in this encounter Plan of Treatment Upcoming Encounters Date Type Department Care Team (Late st Contact Info) Description 10/25/2025 12:00 PM EDT Appointment [facility] [address] [place] [address] 10/25/2025 1:20 PM EDT Office Visit [facility] [address] [place] [address] Willy Wise MD [address] [place] [address] documented as of this encounter Procedures Procedure Name Priority Date/Time Associated Diagnosis Comments CT CHEST LUNG CANCER SCREENING Routine 10/19/2024 11:37 AM EDT History of tobacco abuse documented in this encounter Results * CT Chest Lung Cancer Screening (10/19/2024 11:37 AM EDT) Anatomical Region Laterality Modality Chest Computed Tomogra phy Impressions 10/19/2024 2:40 PM EDT Negative screening examination. Recommendations: LungRADS 2: Benign appearance or behavior - CT Chest Lung Cancer Screening recommended in 12 months. Modifier: None CRITICAL RESULT: No. COMMUNICATION: Per this written report. By electronically signing this report, I, the attending physician, attest that I have personally reviewed the images/data for the above examination(s) and agree with the final edited report. Drafted by Beto Jensen MD on 10/19/2024 12:46 PM Final report signed by Jp Marquez MD on 10/19/2024 2:40 PM Narrative 10/19/2024 2:40 PM EDT CLINICAL INDICATION: Lung cancer screening; personal history of tobacco use. TECHNIQUE: Multiple CT helical images were obtained from thoracic inlet through upper abdomen without contrast. A low radiation dose protocol was utilized. The imaging protocol used in this examination was optimized to achieve diagnostic quality with the lowest possible radiation dose in accordance with the principles of ALARA (As Low As Reasonably Achievable). COMPARISON: 09/25/2021 FINDINGS: Mediastinum and heart: No adenopathy. Lipomatous hypertrophy of the interatrial septum. Coronary Calcium: Yes, moderate. Lungs/pleura: Few unchanged noncalcified solid nodules measuring up to 8 mm in the right middle lobe (series 3/image 180). No pleural effusion or pneumothorax. Upper Abdomen: No suspicious lesion in the partially visualized upper abdomen. Severe hepatic steatosis. Please note that the low dose technique utilized for this examination is optimized for pulmonary nodule evaluation and has limited sensitivity for detection of abdominal abnormalities. Musculoskeletal: Mild degenerative changes of the spine. Procedure Note Jp Marquez MD - 10/19/2024 CLINICAL INDICATION: Lung cancer screening; personal history of tobacco use. TECHNIQUE: Multiple CT helical images were obtained from thoracic inlet through upperabdomen without contrast. A low radiation dose protocol was utilized. The imaging protocol used in this examination was optimized to achievediagnostic quality with the lowest possible radiation dose in accordancewith the principles of ALARA (As Low As Reasonably Achievable). COMPARISON: 09/25/2021 FINDINGS: Mediastinum and heart: No adenopathy. Lipomatous hypertrophy of theinteratrial septum. Coronary Calcium: Yes, moderate. Lungs/pleura: Few unchanged noncalcified solid nodules measuring up to 8mm in the right middle lobe (series 3/image 180). No pleural effusion orpneumothorax. Upper Abdomen: No suspicious lesion in the partially visualized upperabdomen. Severe hepatic steatosis. Please note that the low dose techniqueutilized for this examination is optimized for pulmonary nodule evaluationand has limited sensitivity for detection of abdominal abnormalities. Musculoskeletal: Mild degenerative changes of the spine. IMPRESSION: Negative screening examination. Recommendations: LungRADS 2: Benign appearance or behavior - CT Chest Lung Cancer Screeningrecommended in 12 months. Modifier: None CRITICAL RESULT: No. COMMUNICATION: Per this written report. By electronically signing this report, I, the attending physician, ectorat I have personally reviewed the images/data for the aboveexamination(s) and agree with the final edited report. Drafted by Beto Jensen MD on 10/19/2024 12:46 PM Final report signed by Jp Marquez MD on 10/19/2024 2:40 PM Willy Wise MD IMG CT PROCEDURES Final Resu lt documented in this encounter Visit Diagnoses Diagnosis History of tobacco abuse documented in this encounter Additional Health Concerns Assessment Noted Time PHQ-9 Depression Total Score: 0 10/20/19 25 12:21 PM EDT A fall risk assessment has been complete d for the patient 10/19/2024 12:22 PM EDT A Body Mass Index follow-up plan has been documented for the patient 10/19/2024 2:45 PM EDT documented as of this encounter Care Teams Machine Plug Shaper Relationship Specialty Start Date End Date Sherif Ridley MD [address] [place] [address] PCP - General 06/20/20 Tommie Gayle MD [address] [place] [address] Surgeon Neurosurgery 12/01/21 documented as of this encounter
--- OUTSIDE RECORDS SUMMARY | 2024-10-19 12:00 | XMS_ITS | Encounter Summary ---
Author Organization [facility] Address [address] [place] [address] Care Team Providers Care Public Health Registrar Name Role Phone Sherif Ridley MD Primary Care Provider [phone] Tommie Gayle MD Unavailable [phone] Reason for Referral * Consultation (Routine) - Authorized Specialty Diagnoses / Procedures Referred By Shena t Referred To Contact Diagnoses Moderate asthma, unspecified whether complicated, unspecified whether persistent Willy Wise MD [address] [address] Phone: tel: fax: Referral ID Status Reason Start Date Expiration Date V isits Requested Visits Authorized [id number] Authorized 10/19/2024 04/20/2026 1 1 * Imaging (Routine) - Pending Review Specialty Diagnoses / Procedures Referred By Shena kennedy Referred To Contact Radiology Diagnoses History of tobacco abuse Procedures CT Chest Lung Cancer Screening Willy Wise MD [address] [address] Phone: tel: fax: Referral ID Status Reason Start Date Expiration Date V isits Requested Visits Authorized [id number] Pending Review 10/19/2024 04/20/2026 1 1 Reason for Visit * Reason Comments Moderate asthma, unspecified whether com plicated, unspecifi Encounter Details Date Type Department Care Team (Late st Contact Info) Description 10/19/2024 1:00 PM EDT [facility] [address] [place] [address] Willy Wise MD [address] [place] [address] History of tobacco abuse (Primary Dx); Moderate asthma, unspecified whether complicated, unspecified whether persistent Social History Tobacco Use Types Packs/Day Years Used Date Smoking Tobacco: Former Cigarettes 1 37 1 971 - 2007 Passive Smoke Exposure: Past Smokeless Tobacco: Never Alcohol Use Standard Drinks/Week Comments Yes 1 [...] AM EDT documented as of this encounter Last Filed Vital Signs Vital Sign Reading Time Taken Comments Blood Pressure 125/84 10/19/2024 12:16 PM EDT Pulse 73 10/19/2024 12:16 PM EDT Temperature 36.7 C (98.1 F) 10/19/2024 12:16 PM EDT Respiratory Rate - - Oxygen Saturation 93% 10/19/2024 12:16 PM EDT Inhaled Oxygen Concentration - - Weight 93.9 kg (207 lb) 10/19/2024 12:16 PM EDT Height 166.4 cm (5' 5.5 ) 10/19/2024 12:16 PM ED T Body Mass Index 33.92 10/19/2024 12:16 PM EDT documented in this encounter Functional Status * Over the past 2 weeks, how often have you been bothered by any of the following problems? Question Answer Date of Assessment Author Little interest or pleasure in doing things Not at all 10/19/2024 12:21 PM EDT Bandar Tempest A Feeling down, depressed, or hopeless Not at all 10/19/2024 12:21 PM EDT Bandar Tempest A Patient Health Questionnaire -2 Score 0 10/19/2024 12:21 PM EDT Bandar Tempest A * Question Answer Date of Assessment Author Trouble falling or staying asleep, or sleeping too much Not at all 10/19/2024 12:21 PM EDT Bandar Tempest A Feeling tired or having to le energy Not at all 10/19/2024 12:21 PM EDT Sree Portillot A Poor appetite or overeating Not at all 10/19/2024 12 :21 PM EDT Bandar Tempest A Feeling bad about yourself - or that you are a failure or have let yourself or your family down Not at all 10/19/2024 12:21 PM EDT Gracie Hyman A Trouble concentrating on thi ngs, such as reading the newspaper or watching television Not at all 10/19/2024 12:21 PM EDT Bandar Tempest A Moving or speaking so slowly that other people could have noticed? Or the opposite - being so fidgety or restless that you have been moving around a lot more than usual. Not at all 10/19/2024 12:21 PM EDT Tera Portillopest A Thoughts that you would be better off or hurting yourself in some way Not at all 10/19/2024 12:21 PM EDT Bandra Tempest A Patient Health Questionnaire -9 Score 0 10/19/2024 12:21 PM EDT Bandar Tempest A * How difficult have these problems made it for you to do your work, take care of things at home, or get along with other people? Answer Date of Assessment Author Not difficult at all 10/19/2024 12:21 PM EDT Tera Hymankarunat A documented as of this encounter Miscellaneous Notes * Progress Notes - Willy Wise MD - 10/19/2024 1:00 PM EDT Subjective Ebonie Blue is a 69 y.o. female who presents for follow up visit with a chief complaint of asthma/COPD HPI Asthma doing well on current regimen Had CT lung cancer screening today Allergies[1] Current Medications[2] Review of Systems All other systems reviewed and are negative. Objective Visit Vitals BP 125/84 Pulse 73 Temp 36.7 ??C (98.1 ??F) (Oral) Ht 1.664 m (5' 5.5 ) Wt 93.9 kg (207 lb) SpO2 93% BMI 33.92 kg/m?? Smoking Status Former BSA 2.08 m?? Physical Exam Constitutional: Appearance: Normal appearance. Pulmonary: Effort: Pulmonary effort is normal. Breath sounds: Normal breath sounds. Neurological: Mental Status: She is alert. Results: Imaging (past 24h): I personally visualized and interpreted all of the imaging studies below and I agree with formal interpretation. CT chest screening 10-19-24 IMPRESSION: Negative screening examination. Recommendations: LungRADS 2: Benign appearance or behavior - CT Chest Lung Cancer Screening recommended in 12 months. Modifier: None Assessment/Plan 1) Asthma/overlap: doing well; patient has had a negative methacholine challenge, however, she did have an elevated IgE and seems to have had a clinical response to the omalizumab and inhalers. She is followed at a local asthma clinic. 2) tobacco abuse: former smoker. Screening CT negative today; due for annual screening CT in 1 year Rtc in 1 year with LDCT Orders Placed This Encounter Procedures CT Chest Lung Cancer Screening Standing Status: Future Expected Date: 10/19/2025 Expiration Date: 04/22/2026 Is this the first (baseline) CT or an annual exam?: Annual [2] Is there documentation of shared decision making?: Yes Does the patient show any signs or symptoms of lung cancer?: No Is this a low dose CT or a routine CT?: Low Dose CT [1] Results Release Delay - 72 Hours: 72 Hours Follow Up Pulm Standing Status: Future Expected Date: 10/19/2025 Expiration Date: 11/18/2025 Referral Priority: Routine Referral Type: Consultation Number of Visits Requested: 1 Follow up: Next appointment in this department: Visit date not found Visit time: I spent 20 minutes in this visit. During this visit I reviewed imaging and completed documentation MD JERONIMO Paz [facility] [address] [facility] [address] Dept: [phone] Dept Loc: [phone] Loc [1] Allergies Allergen Reactions Amoxicillin-Pot Clavulanate Rash, Unknown - Patient states they do not know rxn details and Hives Nitrofurantoin Itching Sulfa Drugs Rash, Unknown - Patient states they do not know rxn details and Hives Sulfacetamide Itching and Hives 2nd Skin Quick Heal Rash Atorvastatin Unknown - Patient states they do not know rxn details Cefdinir Diarrhea and Unknown - Patient states they do not know rxn details Clarithromycin Other - please document in the comment field and Unknown - Patient states they do not know rxn details severe diarrhea Clavulanic Acid Rash Codeine Unknown - Patient states they do not know rxn details and Other - please document in the comment field Latex Rash and Unknown - Patient states they do not know rxn details Pedi-Pre Tape [place] [Wound Dressing Adhesive] Unknown - Patient states they do not know rxn details Penicillins Rash Tape/Bandaid Adhesive Unknown - Patient states they do not know rxn details Tapentadol Rash Plastic tape OK Trimethoprim Rash [2] Current Outpatient Medications: albuterol 108 (90 Base) MCG/ACT inhaler, , Disp: , Rfl: allopurinol (Zyloprim) 100 MG tablet, 1 (one) time each day at the same time., Disp: , Rfl: amitriptyline (Elavil) 50 MG tablet, , Disp: , Rfl: amLODIPine (Norvasc) 5 MG tablet, , Disp: , Rfl: Aspirin 81 MG capsule, 1 tab(s) orally once a day, Disp: , Rfl: atorvastatin (Lipitor) 20 MG tablet, 1 tab(s) orally once a day, Disp: , Rfl: Azelastine HCl 137 MCG/SPRAY solution, , Disp: , Rfl: busPIRone (Buspar) 10 MG tablet, Take 1 tablet (10 mg) by mouth 2 (two) times a day., Disp: , Rfl: Cholecalciferol (D3-1000 PO), 1 (one) time each day at the same time., Disp: , Rfl: dorzolamide-timolol (Cosopt) 22.3-6.8 MG/ML ophthalmic solution, , Disp: , Rfl: doxycycline (Vibramycin) 100 MG capsule, , Disp: , Rfl: DULoxetine (Cymbalta) [address] capsule, , Disp: , Rfl: EPINEPHrine (Epipen) 0.3 MG/0.3ML injection syringe, , Disp: , Rfl: fluticasone (Flonase) 50 MCG/ACT nasal spray, , Disp: , Rfl: fluticasone-salmeterol (Advair Diskus) 250-50 MCG/ACT diskus inhaler, Inhale 1 puff twice a day by inhalation route., Disp: , Rfl: furosemide (Lasix) 40 MG tablet, , Disp: , Rfl: gabapentin (Neurontin) 300 MG capsule, , Disp: , Rfl: ipratropium-albuterol (Duo-Neb) 0.5-2.5 mg/3 mL nebulizer solution, , Disp: , Rfl: latanoprost (Xalatan) 0.005 % ophthalmic solution, , Disp: , Rfl: levocetirizine (Xyzal) 5 MG tablet, , Disp: , Rfl: Magnesium 400 MG capsule, 1 (one) time each day at the same time., Disp: , Rfl: minoxidil (Loniten) 10 MG tablet, Take 1 tablet by mouth., Disp: , Rfl: montelukast (Singulair) 10 MG tablet, , Disp: , Rfl: mupirocin (Bactroban) 2 % ointment, , Disp: , Rfl: omalizumab (Xolair) 150 MG injection, as directed subcutaneously every 2 weeks, Disp: , Rfl: omeprazole (PriLOSEC) [address] capsule, , Disp: , Rfl: ondansetron ODT (Zofran-ODT) 8 MG disintegrating tablet, , Disp: , Rfl: oxybutynin (Ditropan) 5 MG tablet, , Disp: , Rfl: pravastatin (Pravachol) 20 MG tablet, Take 1 tablet (20 mg) by mouth Daily., Disp: , Rfl: rOPINIRole (Requip) 1 MG tablet, , Disp: , Rfl: terbinafine (LamISIL) 250 MG tablet, , Disp: , Rfl: warfarin (Coumadin) 5 MG tablet, , Disp: , Rfl: Advair Diskus 500-50 MCG/ACT diskus inhaler, , Disp: , Rfl: albuterol 108 (90 Base) MCG/ACT inhaler, , Disp: , Rfl: amoxicillin (Amoxil) 500 MG capsule, , Disp: , Rfl: atorvastatin (Lipitor) 20 MG tablet, , Disp: , Rfl: cholecalciferol (Vitamin D-3) 10 MCG (400 UNIT) capsule, 1 cap(s) orally once a day (Patient not taking: Reported on 10/19/2024), Disp: , Rfl: dicyclomine (Bentyl) 10 MG capsule, , Disp: , Rfl: dicyclomine (Bentyl) 10 MG capsule, 1 cap orally 4 times a day PRN (Patient not taking: Reported on10/19/2024), Disp: , Rfl: DULoxetine (Cymbalta) [address] capsule, , Disp: , Rfl: fluticasone-salmeterol (Advair Diskus) 500-50 MCG/ACT diskus inhaler, Inhale 1 puff twice a day by inhalation route. (Patient not taking: Reported on 10/19/2024), Disp: , Rfl: gabapentin (Neurontin) 600 MG tablet, , Disp: , Rfl: hydroCHLOROthiazide (HYDRODiuril) 25 MG tablet, , Disp: , Rfl: HYDROcodone-acetaminophen ([place]) 5-325 MG tablet, , Disp: , Rfl: metaxalone (Skelaxin) 800 MG tablet, , Disp: , Rfl: metaxalone (Skelaxin) 800 MG tablet, 1 tab(s) orally 2 times a day as needed for muscle spasm for 30 days (Patient not taking: Reported on 10/19/2024), Disp: , Rfl: mometasone (Nasonex) 50 MCG/ACT nasal spray, , Disp: , Rfl: mometasone-formoterol (Dulera) 200-5 MCG/ACT inhaler, , Disp: , Rfl: montelukast (Singulair) 10 MG tablet, , Disp: , Rfl: nitrofurantoin, macrocrystal-monohydrate, (Macrobid) 100 MG capsule, , Disp: , Rfl: omeprazole (PriLOSEC) [address] capsule, , Disp: , Rfl: omeprazole (PriLOSEC) [address] capsule, 1 cap(s) orally once a day (Patient not taking: Reported on10/19/2024), Disp: , Rfl: ondansetron (Zofran) 8 MG tablet, may take one take one by mouth 6-8 hours as needed for nausea (Patient not taking: Reported on 10/19/2024), Disp: , Rfl: Ospemifene (Osphena) 60 MG tablet, , Disp: , Rfl: oxybutynin XL (Ditropan-XL) 5 MG 24 hr tablet, , Disp: , Rfl: oxyCODONE-acetaminophen (Percocet) 10-325 MG tablet, , Disp: , Rfl: oxyCODONE-acetaminophen (Percocet) 5-325 MG tablet, , Disp: , Rfl: piroxicam (Feldene) 20 MG capsule, , Disp: , Rfl: potassium chloride CR (Klor-Con M20) 20 MEQ ER tablet, , Disp: , Rfl: simvastatin (Zocor) 20 MG tablet, , Disp: , Rfl: Spiriva Respimat 1.25 MCG/ACT aerosol solution, , Disp: , Rfl: tiZANidine (Zanaflex) 2 MG tablet, , Disp: , Rfl: traMADol (Ultram) 50 MG tablet, , Disp: , Rfl: traMADol (Ultram) 50 MG tablet, , Disp: , Rfl: traMADol ER (Ultram-ER) 300 MG 24 hr tablet, , Disp: , Rfl: varenicline (Chantix) 1 MG tablet, , Disp: , Rfl: warfarin (Coumadin) 5 MG tablet, , Disp: , Rfl: warfarin (Coumadin) 7.5 MG tablet, , Disp: , Rfl: documented in this encounter Plan of Treatment Upcoming Encounters Date Type Department Care Team (Late st Contact Info) Description 10/25/2025 12:00 PM EDT Appointment [facility] [address] [place] [address] 10/25/2025 1:20 PM EDT [facility] [address], [address] [place] [address] Willy Wise MD [address] [place] [address] Scheduled Orders Name Type Priority Associated Diagnoses Orde r Schedule CT Chest Lung Cancer Screening Imaging Routine History of tobacco abuse Expected: 10/19/2025 (Approximate), Expires: 04/22/2026 Scheduled Referrals Name Type Priority Associated Diagnoses Orde r Schedule Follow Up Pulm Outpatient Referral Routine Moderate asthma, unspecified whether complicated, unspecified whether persistent Expected: 10/19/2025, Expires: 11/18/2025 documented as of this encounter Visit Diagnoses Diagnosis History of tobacco abuse- Primary Moderate asthma, unspecified whether complicated, unspecified whether persistent documented in this encounter Additional Health Concerns Assessment Noted Time PHQ-9 Depression Total Score: 0 10/20/19 25 12:21 PM EDT A fall risk assessment has been complete d for the patient 10/19/2024 12:22 PM EDT A Body Mass Index follow-up plan has been documented for the patient 10/19/2024 2:45 PM EDT documented as of this encounter Care Teams Public Health Registrar Relationship Specialty Start Date End Date Sherif Ridley MD [address] [place] [address] PCP - General 06/20/20 Tommie Gayle MD [address] [place] [address] Surgeon Neurosurgery 12/01/21 documented as of this encounter
--- OUTSIDE RECORDS SUMMARY | 2024-10-23 04:00 | XMS_ITS ---
Author Organization [facility] Address [address] [place] [address] Care Team Providers Care Rn Observation Name Role Phone Sherif Ridley Primary Care Provider Sandra Lenz Unavailable [phone] Allergies Allergen (clinical drug ingredient) Drug/Non Drug [...] Drug Allergy A ctive REASON FOR VISIT Spider bite 2 weeks ago Medications Medication SIG (Take, Route, Frequency, Duration) Notes Start Date End Date Status Omeprazole 40 MG TAKE 1 CAPSULE BY MOUTH ONCE DAILY; Duration: 30 Active Acetaminophen 500 MG 2 tab(s) orally felicia ry 6 hours Active Minoxidil 10 MG 1 tablet Orally Once a day Active Triamcinolone Acetonide 0.1 % 1 application Externally Twice a day; Duration: 7 days 10/23/2024 Active Doxycycline Hyclate 100 MG 1 tablet Orally twice a day; Duration: 7 days 10/23/2024 Active Warfarin Sodium 7.5 MG TAKE 1 TABLET BY MOUTH ON TUESDAY, TUESDAY, TUESDAY, TUESDAY, AND TUE. THEN TAKE 1/2 TABLET ONCE DAILY ON TUESDAY AND TUESDAY DIRECTED; Duration: 30 Active busPIRone HCl 10 MG TAKE 1 TABLET BY MOUTH TWICE DAILY; Duration: 30 days Active Gabapentin 300 MG TAKE 1 CAPSULE BY MOUTH FOUR TIMES DAILY; Duration: 30 10/10/2024 Active rOPINIRole HCl 1 MG TAKE 1-2 TABLET BY MOUTH AT BEDTIME Orally Once a day; Duration: 90 days Active Amitriptyline HCl 50 MG 1 tab(s) orally once a day (at bedtime); Duration: 30 days Active Magnesium 400MG 1 TABLET ONCE A DAY *Please revi ew and pick correct strength-formulat ion from Mixbook options. If intended option is not shown, discontinue and re-order from Quick Search* Active DULoxetine HCl 60 MG TAKE 1 CAPSULE BY MOUTH TWICE DAILY; Duration: 90 Active Pravastatin Sodium 20 MG 1 tab(s) orally once a day; Duration: 90 days Active Allopurinol 100 MG 1 tablet Orally Once a day; Duration: 90 days 08/16/2024 Active Xolair 150 MG as directed subcutaneously every 2 weeks Active PROAIR HFA 90 MCG/INH USE 2 PUFFS EVERY 4 TO 6 HOURS PRNF COUGH/WHEEZE -REFILLS REMAINING >A INHALED 4 TIMES A DAY *Please review for potential replacement for e-prescription and drug interaction check* Active Flonase Allergy Relief 50 MCG/ACT 2 [...] review and pick correct strength-formulat ion from Mixbook options. If intended option is not shown, discontinue and re-order from Quick Search* 01/26/2016 Active Ipratropium-Albutero l 0.5-2.5 (3) MG/3ML 3 mL by nebulizer tid prn 07/10/2018 Active Azelastine HCl 137 MCG/SPRAY 2 spray(s) intranasally twice a day Active amLODIPine Besylate 2.5 MG 1 tab orally once a day Active Vital Signs Temperature 98.0 degrees Fahrenheit 10/24/19 25 Blood pressure systolic 122 mm Hg 10/24/19 25 Blood pressure diastolic 86 mm Hg 025 Heart Rate 80 /min 10/23/2024 Height 5 ft 5.75 in in 10/23/2024 Weight 208 lbs 10/23/2024 BMI 33.82 kg/m2 10/23/2024 Encounters Encounter Location Date Provider Diagnosis [facility] [address] [place] [address] 10/23/2024 Sandra Lenz Insect bite (nonvenomous), right lower leg, subsequent encounter S80.861D ; Bitten or stung by nonvenomous insect and other nonvenomous arthropods, subsequent encounter W57.XXXD and Cellulitis of right lower extremity L03.115 Assessments Encounter Date Diagnosis (ICD Code) Assessment Notes Treatment Notes Treatment Clinical Notes Section Notes 10/23/2024 Insect bite (nonvenomous), right lower leg, subsequent encounter (ICD-10 - S80.861D) Rec addition of topical steroid for inflammation if this truly was a spider/insect bite, continue oral antibiotics for an additional week, close FU next week but sooner with any increasing concern. 10/23/2024 Bitten or stung by nonvenomous insect and other nonvenomous arthropods, subsequent encounter (ICD-10 - W57.XXXD) 10/23/2024 Cellulitis of right lower extremity (ICD-10 - L03.115) Plan Of Treatment Medication Medication Name Sig Start Date Stop Date Notes Triamcinolone Acetonide 0.1 % 1 applicat ion Externally Twice a day; Duration: 7 days 10/23/2024 Doxycycline Hyclate 100 MG 1 tablet Oral ly twice a day; Duration: 7 days 10/23/2024 Next Appt Details Follow Up: 1 Week, Reason: Progress Notes * Ebonie BLUE JDOB:[birth year] (69 yo F)Acc No.[id number]:10/23/2024 Progress Notes Patient: Vernon TORREZKAUSHIK Ebonie Martell Provider: VALENTINE Virgen :1955 A ge:69 Y S ex:Female Date:10/23/2024 Address:[address] [place] [address] [place] , [place], [id number] Pcp:Sherif Ridley Subjective: * Chief Complaints: * 1 . Spider bite 2 weeks ago. * HPI: D ermatology: Presents today to FU regarding skin lesion with cellulitis right lower extremity, medial aspect. Suspected insect bite, possibly spider bite. Painful. Initially was blistered at the center of the lesion but that is no longer present. Seen at [facility] and started on oral doxy and topical mupirocin. roll tender. No drainage. Does think the area of erythema has gotten smaller. No fevers/constitutional symptoms. * ROS: C ONSTITUTIONAL: Reviewed, No Symptoms Reported: Y es. G ASTROENTEROLOGY: no N ausea. n o V omiting. n o D iarrhea.? * Medical History: F ibromyalgia, Triggered asthma, Gerd, Ibs, Depression, Eczema, Osteoarthritis, DVT, COPD, Pulmonary embolism and infarction, other, Last colonoscopy 2002 - [address] Matta, Normal Cologuard 2017, Chest pain with negative ECHO and lexiscan 06/25, Normal DEXA 2020, Asthma, Normal mammogram 06/01, Murmur - echo 05/2024 without significant valvular disease, Gout. * Medications: T aking Minoxidil 10 MG Tablet 1 tablet Orally Once a day , Taking Acetaminophen 500 MG Tablet 2 tab(s) orally every 6 hours , Taking Aspirin 81 MG TABLET 1 TAB(S) ORALLY ONCE A DAY , Notes to Pharmacist: *Please review and pick correct strength-formulation from Card Capture Servic[employer] options. If intended option is not shown, [...] *Please review and pick correct strength-formulation from Mixbook options. If intended option is not shown, discontinue and re-order from Quick Search*, Taking Amitriptyline HCl 50 MG Tablet 1 tab(s) orally once a day (at bedtime) , Taking Pravastatin Sodium 20 MG Tablet 1 tab(s) orally once a day , Taking DULoxetine HCl 60 MG Capsule Delayed Release Particles TAKE 1 CAPSULE BY MOUTH TWICE DAILY , Taking Allopurinol 100 MG Tablet 1 tablet Orally Once a day , Taking rOPINIRole HCl 1 MG Tablet TAKE 1-2 TABLET BY MOUTH AT BEDTIME Orally Once a day , Taking busPIRone HCl 10 MG Tablet TAKE 1 TABLET BY MOUTH TWICE DAILY , Taking Warfarin Sodium 7.5 MG Tablet TAKE 1 TABLET BY MOUTH ON TUESDAY, TUESDAY, TUESDAY, TUESDAY, AND SAT. THEN TAKE 1/2 TABLET ONCE DAILY ON TUESDAY AND TUESDAY DIRECTED , Taking Gabapentin 300 MG Capsule TAKE 1 CAPSULE BY MOUTH FOUR TIMES DAILY , Taking Omeprazole 40 MG Capsule Delayed Release TAKE 1 CAPSULE BY MOUTH ONCE DAILY , Discontinued predniSONE 20 MG Tablet 1 tablet every day for 7 days, then 1/2 tablet daily for 7 days Orally Once a day , Medication List reviewed and reconciled with the patient * Allergies: A ugmentin, Codeine, SULFA, OMNICEF: diarrhea, watery, ADHESIVE, LATEX, BIAXIN, Macrobid: itching - Allergy, Atorvastatin. Objective: * Vitals: N urse: be, Pain: 6, Temp: 98.0, RR: 18, HR: 80, BP: 122/86, Ht: 5 ft 5.75 in, Wt: 208, BMI:33.82. * Examination: G eneral Examination: General P leasant and Cooperative, NAD on RA,. Heart: R egular Rate and Rhythm, systolic murmur. Lungs: c lear to auscultation,. Extremities: n o edema, 2+ pedal pulses, spider veins and varicose veins bilat lower extremities. right lower extremity, medial aspect, near the medial malleolus, annular lesion that is slightly necrotic centrally approx 3x3 mm and surrounding erythema and warmth. Psych N ormal Mood/Affect. Assessment: * Assessment: 1. I nsect bite (nonvenomous), right lower leg, subsequent encounter - S80.861D (Primary) ? 2 . B itten or stung by nonvenomous insect and other nonvenomous arthropods, subsequent encounter - W57.XXXD 3 . C ellulitis of right lower extremity - L03.115 ? Plan: * Treatment: 2. C ellulitis of right lower extremity Start Doxycycline Hyclate Tablet, 100 MG, 1 tablet, Orally, twice a day, 7 days, 14 Tablet, Refills 0. * Follow Up: 1 Week * * Sign off status: Completed true * Provider: VALENTINE Virgen Date: 0 10/23/2024 Generated for Emmie jimenez/Ratna/Vic on: 02/10/2024 02:08 PM EST History and Physical Notes * Examination Category Sub-Category Detail Notes Category Not es General Examination Heart: Regular Rate and Rhythm, systolic murmur Lungs: clear to auscultatio n, Extremities: no edema, 2+ pedal p ulses, spider veins and varicose veins bilat lower extremities. right lower extremity, medial aspect, near the medial malleolus, annular lesion that is slightly necrotic centrally approx 3x3 mm and surrounding erythema and warmth General Pleasant and Coopera tive, NAD on RA, Psych Normal Mood/Affect
--- OUTSIDE RECORDS SUMMARY | 2024-10-29 04:45 | XMS_ITS ---
Author Organization [facility] Address [address] [place] [address] Care Team Providers Care Economics Consultant Name Role Phone Sherif Ridley Primary Care Provider [phone] Sandra Lenz Unavailable [phone] Allergies Allergen (clinical drug ingredient) Drug/Non Drug [...] Drug Allergy A ctive REASON FOR VISIT F/U on Spider Bite Medications Medication SIG (Take, Route, Frequency, Duration) Notes Start Date End Date Status Triamcinolone Acetonide 0.1 % 1 application Externally Twice a day; Duration: 7 days 10/23/2024 Active Doxycycline Hyclate 100 MG 1 tablet Oral ly twice a day; Duration: 7 days 10/23/2024 Active Omeprazole 40 MG TAKE 1 CAPSULE BY MO [facility] ONCE DAILY; Duration: 30 Active busPIRone HCl 10 MG TAKE 1 TABLET BY OMARI TWICE DAILY; Duration: 30 Active Allopurinol 100 MG TAKE 1 TABLET BY OMARI TH ONCE A DAY; Duration: 90 Active Warfarin Sodium 7.5 MG TAKE 1 TABLET BY MOUTH ON TUESDAY, TUESDAY, TUESDAY, TUESDAY, AND TUE. THEN TAKE 1/2 TABLET ONCE DAILY ON TUESDAY AND TUESDAY DIRECTED; Duration: 30 Active rOPINIRole HCl 1 MG TAKE 1-2 TABLET BY M OUTH AT BEDTIME Orally Once a day; Duration: 90 days Active DULoxetine HCl 60 MG TAKE 1 CAPSULE BY M OUTH TWICE DAILY; Duration: 90 Active Pravastatin Sodium 20 MG 1 tab(s) orally once a day; Duration: 90 days Active Gabapentin 300 MG TAKE 1 CAPSULE BY MO UTH FOUR TIMES DAILY; Duration: 30 10/10/2024 Active Montelukast Sodium 10 MG 1 tab(s) orally once a day; Duration: 30 day(s) Active Xolair 150 MG as directed subcutan eously every 2 weeks Active Amitriptyline HCl 50 MG 1 tab(s) orally once a day (at bedtime); Duration: 30 days Active Magnesium 400MG 1 TABLET ONCE A DAY Active Flonase Allergy Relief 50 MCG/ACT 2 spray(s) intranasally once a day Active amLODIPine Besylate 2.5 MG 1 tab orally once a day Active Ipratropium-Albuterol 0.5-2.5 (3) MG/3ML 3 mL by nebulizer tid prn 07/10/2018 Active Azelastine HCl 137 MCG/SPRAY 2 spray(s) intranasally twice a day Active PROAIR HFA 90 MCG/INH USE 2 PUFFS EVERY 4 TO 6 HOURS PRNF COUGH/WHEEZE -REFILLS REMAINING >A INHALED 4 TIMES A DAY Active Xyzal Allergy 24HR 5 MG 1 po qd Active Vitamin D3 125 MCG (5000 UT) 1 cap(s) orally once a day A ctive Aspirin 81 MG 1 TAB(S) ORALLY ONCE A DAY 6 Active Acetaminophen 500 MG 2 tab(s) orally felicia ry 6 hours Active Minoxidil 10 MG 1 tablet Orally Once a day Active Social History Tobacco Use: Social History Observation Description Date Details (start date - stop date) Former Smoker NA - NA Smoking: Question Answer Notes Are you a: former smoker How long has it been since you last smoked? 1-5 years Section Notes: Stopped smoking 2015 Vital Signs Temperature 97.6 degrees Fahrenheit 09/22/20 25 Blood pressure systolic 114 mm Hg 10/30/19 25 Blood pressure diastolic 72 mm Hg 025 Heart Rate 96 /min 10/29/2024 Height 5 ft 5.75 in in 10/29/2024 Weight 207 lbs 10/29/2024 BMI 33.66 kg/m2 10/29/2024 Encounters Encounter Location Date Provider Diagnosis [facility] [address] [place], [place] [address] 10/29/2024 Sandra Lenz Bitten or stung by nonvenomous insect and other nonvenomous arthropods, subsequent encounter W57.XXXD Assessments Encounter Date Diagnosis (ICD Code) Assessment Notes Treatment Notes Treatment Clinical Notes Section Notes 10/29/2024 Bitten or stung by nonvenomous insect and other nonvenomous arthropods, subsequent encounter (ICD-10 - W57.XXXD) Cellulitis has resolved. Eschar resolved. Pt was advised to finish her course of Doxycyline and further antibiotics are not warrented at this time. Pt was advised to continue applying Triamcinolone to the area 1-2 times per day for the rest of the week. Pt was advised to stop applying Mupirocin to the area at this point. Pt was advised she may apply a dry dressing to the area after the Triamcinolone. Pt was encouraged to continue gentle cleansing of the area with warm soap and water. Pt was advised to return to clinic if the surrounding redness worses, the central area becomes more black slough, or if she develops systemic symptoms (fever, chills, body aches). All questions were answered and concerns addressed. Plan Of Treatment Treatment Notes Assessment Notes Bitten or stung by nonvenomo us insect and other nonvenomous arthropods, subsequent encounter Cellulitis has resolved. Eschar resolved . Pt was advised to finish her course of Doxycyline and further antibiotics are not warrented at this time. Pt was advised to continue applying Triamcinolone to the area 1-2 times per day for the rest of the week. Pt was advised to stop applying Mupirocin to the area at this point. Pt was advised she may apply a dry dressing to the area after the Triamcinolone. Pt was encouraged to continue gentle cleansing of the area with warm soap and water. Pt was advised to return to clinic if the surrounding redness worses, the central area becomes more black slough, or if she develops systemic symptoms (fever, chills, body aches). All questions were answered and concerns addressed. Next Appt Details Follow Up: prn, Reason: Progress Notes * Ebonie BLUE JDOB:[birth year] (69 yo F)Acc No.[id number]:10/29/2024 Progress Notes Patient: Ebonie ZAPATA Provider: VALENTINE Virgen :1955 A ge:69 Y S ex:Female Date:10/29/2024 Address:[address] [place] [address] [place] [id number] Pcp:Sherif Ridley Subjective: * Chief Complaints: * 1 . F/U on Spider Bite. * HPI: g en: Gen [age]yo female comes in following up on a spider bite. Pt was seen previously in the clinic and placed on 7 additional days of Doxyclyline, mupirocin ointment, and added triamcinolone ointment. Pt explains the area looks much better today. Pt explains the center of the wound has become more yellow-pus in color and the black debris fell off this morning when she was bathing. Pt explains the surrounding redness has decreased significantly since starting the triamcinolone. Pt explains the area is still painful but less so than previously. Pt explains the pain is sharp shooting and is worse when she has been up for long periods and her legs have become swollen. Pt denies any fever, chills, body aches, nausea, or vomiting. Pt explains she is still alternating application of mupirocin and triamcinolone and has one day left of Doxycycline. Pt has no other concerns today. . * ROS: C ONSTITUTIONAL: no F ever. * Medical History: F ibromyalgia, Triggered asthma, [...] M aternal aunt: alive, heart disease. S ibtrudi: alive, 1 brother PAD, Strokes , 2 [...] 1 TAB(S) ORALLY ONCE A DAY , Taking Vitamin D3 125 MCG (5000 UT) [...] >A INHALED 4 TIMES A DAY , Taking Xolair 150 MG Solution Reconstituted as directed subcutaneously every 2 weeks , Taking Montelukast Sodium 10 MG Tablet 1 tab(s) orally once a day , Taking Flonase Allergy Relief 50 MCG/ACT Suspension 2 spray(s) intranasally once a day , Taking Magnesium 400MG 1 TABLET ONCE A DAY , Taking Amitriptyline HCl 50 MG Tablet 1 tab(s) orally once a day (at bedtime) , Taking Pravastatin Sodium 20 MG Tablet 1 tab(s) orally once a day , Taking DULoxetine HCl 60 MG Capsule Delayed Release Particles TAKE 1 CAPSULE BY MOUTH TWICE DAILY , Taking rOPINIRole HCl 1 MG Tablet TAKE 1-2 TABLET BY MOUTH AT BEDTIME Orally Once a day , Taking Warfarin Sodium 7.5 MG Tablet TAKE 1 TABLET BY MOUTH ON TUESDAY, TUESDAY, TUESDAY, TUESDAY, AND SAT. THEN TAKE 1/2 TABLET ONCE DAILY ON TUESDAY AND TUESDAY DIRECTED , Taking Gabapentin 300 MG Capsule TAKE 1 CAPSULE BY MOUTH FOUR TIMES DAILY , Taking Omeprazole 40 MG Capsule Delayed Release TAKE 1 CAPSULE BY MOUTH ONCE DAILY , Taking Doxycycline Hyclate 100 MG Tablet 1 tablet Orally twice a day , Taking Triamcinolone Acetonide 0.1 % Ointment 1 application Externally Twice a day , Taking Allopurinol 100 MG Tablet TAKE 1 TABLET BY MOUTH ONCE A DAY , Taking busPIRone HCl 10 MG Tablet TAKE 1 TABLET BY MOUTH TWICE DAILY , Medication List reviewed and reconciled with the patient * Allergies: A ugmentin, Codeine, SULFA, OMNICEF: diarrhea, watery, ADHESIVE, LATEX, BIAXIN, Macrobid: itching - Allergy, Atorvastatin. Objective: * Vitals: N urse: jl, Pain: 6, Temp: 97.6, RR: 20, HR: 96, BP: 114/72, Ht: 5 ft 5.75 in, Wt: 207, BMI:33.66. * Examination: G eneral Examination: General P leasant and Cooperative, NAD on RA,. Heart: R RR. Lungs: c lear to auscultation,. Skin: R ight medial ankle: mildly erythematous macule with central umbilication with serous drainage/ slough present. Area is tender to touch but erythematous area blanches appropriately. no erythematous streaking, no pitting edema, no warmth. General Appearance: N AD, pleasant. Assessment: * Assessment: 1. B itten or stung by nonvenomous insect and other nonvenomous arthropods, subsequent encounter - W57.XXXD (Primary) Plan: * Treatment: * Follow Up: p rn * * Sign off status: Completed true * Provider: VALENTINE Virgen Date: 0 10/29/2024 Generated for Emmie jimenez/Ratna/Evelineitting on: 02/10/2024 02:08 PM EST History and Physical Notes * HPI (History of Present Illness) Category Sub-Category Detail Notes Category Not es gen Gen 69yo female come s in following up on a spider bite. Pt was seen previously in the clinic and placed on 7 additional days of Doxyclyline, mupirocin ointment, and added triamcinolone ointment. Pt explains the area looks much better today. Pt explains the center of the wound has become more yellow-pus in color and the black debris fell off this morning when she was bathing. Pt explains the surrounding redness has decreased significantly since starting the triamcinolone. Pt explains the area is still painful but less so than previously. Pt explains the pain is sharp shooting and is worse when she has been up for long periods and her legs have become swollen. Pt denies any fever, chills, body aches, nausea, or vomiting. Pt explains she is still alternating application of mupirocin and triamcinolone and has one day left of Doxycycline. Pt has no other concerns today. Examination Category Sub-Category Detail Notes Category Not es General Examination Heart: RRR Lungs: clear to auscultatio n, General Appearance: NAD, pleasant Skin: Right medial ankle: mildly erythematous macule with central umbilication with serous drainage/ slough present. Area is tender to touch but erythematous area blanches appropriately. no erythematous streaking, no pitting edema, no warmth General Pleasant and Coopera tive, NAD on RA,
--- OUTSIDE RECORDS SUMMARY | 2024-11-22 09:00 | XMS_ITS ---
Author Organization [facility] Address [address] [place] [address] Care Team Providers Care Software Team Leader Name Role Phone Sherif Ridley Primary Care Provider Sandra Lnez Unavailable [phone] Allergies Allergen (clinical drug ingredient) Drug/Non Drug [...] ctive Results Component Value Reference Range Notes LIPID PANEL, STANDARD (7600) Reviewed date:11/26/2024 12:29:52 PM Interpretation: Performing Lab:KE[facility]IN, [facility] [id number] [facility] Las VegasReddy Roberts[address] Wes Oakley Notes/Report: NON-FASTING; NON-FASTING; NON-FASTING; NON-FASTING; NON-FAST CHOLESTEROL, TOTAL 152 <200 mg/dL HDL CHOLESTEROL 46 > OR = 50 mg/dL TRIGLYCERIDES 164 <150 mg/dL LDL-CHOLESTEROL 80 Reference range: <100 Desirable range <100 mg/dL for primary prevention; <70 mg/dL for patients with CHD or diabetic patients with > or = 2 CHD risk factors. LDL-C is now calculated using the Jericho calculation, which is a validated novel method providing better accuracy than the Friedewald equation in the estimation of LDL-C. Seth HART et al. JANESSA. 2013;310(19): 4247-4364 (http://education.[employer]/faq/QJT170) CHOL/HDLC RATIO 3.3 <5.0 (calc) NON HDL CHOLESTEROL 106 <130 mg/dL (calc) For patients with diabetes plus 1 major ASCVD risk factor, treating to a non-HDL-C goal of <100 mg/dL (LDL-C of <70 mg/dL) is considered a therapeutic option. COMPREHENSIVE METABOLIC HARPAL Valdes (35468) Reviewed date:11/26/2024 12:29:52 PM Interpretation: Performing Lab:KEVIN, [facility] [id number] [facility], Reddy CoelloNpdoEP[address] Wes Oakley Notes/Report: NON-FASTING; NON-FASTING; NON-FASTING; NON-FASTING; NON-FAST GLUCOSE 103 65-99 mg/dL Fasting reference interval For someone without known diabetes, a glucose value between 100 and 125 mg/dL is consistent with prediabetes and should be confirmed with a follow-up test. UREA NITROGEN (BUN) 10 7-25 mg/dL CREATININE 0.81 0.50-1.05 mg/dL EGFR 79 > OR = 60 mL/min/1.73m2 BUN/CREATININE RATIO SEE NOTE: 6-22 (calc) Not Reported: BUN and Creatinine are within reference range. SODIUM 139 135-146 mmol/L POTASSIUM 4.0 3.5-5.3 mmol/L CHLORIDE 106 98-110 mmol/L CARBON DIOXIDE 25 20-32 mmol/L CALCIUM 9.6 8.6-10.4 mg/dL PROTEIN, TOTAL 6.8 6.1-8.1 g/dL ALBUMIN 4.1 3.6-5.1 g/dL GLOBULIN 2.7 1.9-3.7 g/dL (calc) ALBUMIN/GLOBULIN RATIO 1.5 1.0-2.5 (calc) BILIRUBIN, TOTAL 0.4 0.2-1.2 mg/dL ALKALINE PHOSPHATASE 99 37-153 U/L AST 16 10-35 U/L ALT 16 6-29 U/L URIC ACID (905) Reviewed date:11/26/2024 12:29:52 PM Interpretation: Performing Lab:[facility] [employer] [id number] [facility], Mercy HospitalKthdEL[address] Wes Oakley Notes/Report: NON-FASTING; NON-FASTING; NON-FASTING; NON-FASTING; NON-FAST URIC ACID 6.1 2.5-7.0 mg/dL Therapeutic ta rget for gout patients: <6.0 mg/dL CBC (INCLUDES DIFF/PLT) (639 9) Reviewed date:11/26/2024 12:29:52 PM Interpretation: Performing Lab:KEVIN [employer] [id number] [facility], Mercy [id number] Wes Oakley Notes/Report: NON-FASTING; NON-FASTING; NON-FASTING; NON-FASTING; NON-FAST WHITE BLOOD CELL COUNT 7.6 3.8-10.8 Thousand/ uL RED BLOOD CELL COUNT 4.03 3.80-5.10 Million/uL HEMOGLOBIN 12.0 11.7-15.5 g/dL HEMATOCRIT 37.6 35.0-45.0 % MCV 93.3 80.0-100.0 fL MCH 29.8 27.0-33.0 pg MCHC 31.9 32.0-36.0 g/dL For adults, a slight decrease in the calculated MCHC value (in the range of 30 to 32 g/dL) is most likely not clinically significant; however, it should be interpreted with caution in correlation with other red cell parameters and the patient's clinical condition. RDW 14.4 11.0-15.0 % PLATELET COUNT 290 140-400 Thousand/uL MPV 10.5 7.5-12.5 fL ABSOLUTE NEUTROPHILS 4332 7301-8940 cells/uL ABSOLUTE LYMPHOCYTES 2151 850-3900 cells/uL ABSOLUTE MONOCYTES 570 200-950 cells/uL ABSOLUTE EOSINOPHILS 464 15-500 cells/uL ABSOLUTE BASOPHILS 84 0-200 cells/uL NEUTROPHILS 57 LYMPHOCYTES 28.3 MONOCYTES 7.5 EOSINOPHILS 6.1 BASOPHILS 1.1 PROTHROMBIN TIME-INR (5247) Reviewed date:11/26/2024 12:29:52 PM Interpretation: Performing Lab:KEVIN [employer] [id number] [facility], [place] [id number] Wes Oakley Notes/Report: NON-FASTING; NON-FASTING; NON-FASTING; NON-FASTING; NON-FAST INR 1.4 Reference Range 0.9-1.1 Moderate-intensity Warfarin Therapy 2.0-3.0 Higher-intensity Warfarin Therapy 3.0-4.0 PT 14.7 9.0-11.5 sec For additional information, please refer to http://education.[employer]/faq/KGJ999 (This link is being provided for informational/ educational purposes only.) REASON FOR VISIT 3 Months F/U, has knee replacement surgery on Dec 04 and Telly (Coumadin Clinic ) told her to seeyou regarding Lovenox Medications Medication SIG (Take, Route, Frequency, Duration) Notes Start Date End Date Status busPIRone HCl 10 MG TAKE 1 TABLET BY OMARI TH TWICE DAILY; Duration: 30 Active Omeprazole 40 MG TAKE 1 CAPSULE BY MO UTH ONCE DAILY; Duration: 30 Active DULoxetine HCl 60 MG TAKE 1 CAPSULE BY M OUTH TWICE DAILY; Duration: 90 Active Gabapentin 300 MG TAKE 1 CAPSULE BY MO UTH FOUR TIMES DAILY MAY CAUSE DROWSINESS; Duration: 30 11/09/2024 Active Allopurinol 100 MG TAKE 1 TABLET BY OMARI TH ONCE A DAY; Duration: 90 Active Pravastatin Sodium 20 MG 1 tab(s) orally once a day; Duration: 90 days Active rOPINIRole HCl 1 MG TAKE 1-2 TABLET BY M OUTH AT BEDTIME Orally Once a day; Duration: 90 days Active Warfarin Sodium 7.5 MG TAKE 1 TABLET BY MOUTH ON TUESDAY, TUESDAY, TUESDAY, TUESDAY, AND TUE. THEN TAKE 1/2 TABLET ONCE DAILY ON TUESDAY AND TUESDAY DIRECTED; Duration: 30 Active Triamcinolone Acetonide 0.1 % 1 application Externally Twice a day; Duration: 7 days 10/23/2024 Active Montelukast Sodium 10 MG 1 tab(s) orally once a day; Duration: 30 day(s) Active Flonase Allergy Relief 50 MCG/ACT 2 spray(s) intranasally once a day Active Magnesium 400MG 1 TABLET ONCE A DAY Active Amitriptyline HCl 50 MG 1 tab(s) orally once a day (at bedtime); Duration: 30 days Active Xolair 150 MG as directed subcutan eously every 2 weeks Active Xyzal Allergy 24HR 5 MG 1 [...] >A INHALED 4 TIMES A DAY Active Vitamin D3 125 MCG (5000 UT) 1 cap(s) orally once a day A ctive Aspirin 81 MG 1 TAB(S) ORALLY ONCE A DAY 6 Active Acetaminophen 500 MG 2 tab(s) orally felicia ry 6 hours Active Minoxidil 10 MG 1 tablet Orally Once a day Active Immunizations Vaccine Route Administration Date Status Comme nts Arexvy IM Intramuscular 11/22/2024 Administered Fluzone High Dose IM Intramuscular 11/22/2024 Administered Social History Tobacco Use: Social History Observation Description Date Details (start date - stop date) Former Smoker NA - NA Smoking: Question Answer Notes Are you a: former smoker How long has it been since you last smoked? 1-5 years Section Notes: Stopped smoking 2015 Vital Signs Temperature 97.3 degrees Fahrenheit 11/23/19 25 Blood pressure systolic 122 mm Hg 11/23/19 25 Blood pressure diastolic 82 mm Hg 025 Heart Rate 96 /min 11/22/2024 Height 5 ft 5.75 in in 11/22/2024 Weight 207.8 lbs 11/22/2024 BMI 33.79 kg/m2 11/22/2024 Encounters Encounter Location Date Provider Diagnosis [facility] PED SUSANA [address] [place] [address] 11/22/2024 Sandra Lenz Gouty arthritis M10. 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 INR today and will review with coumadin clinic and establish schedule to transition to Lovenox for suregery 11/22/2024 Fibromyalgia (ICD-10 - M79.7) continue cymbalta, gabapentin 11/22/2024 Other chronic pain (ICD-10 - G89.29) [facility] on file. NSAIDS contraindicated due to coumadin use 11/22/2024 History of pulmonary embolism (ICD-10 - Z86.711) following with [facility] 11/22/2024 Essential hypertension (ICD-10 - I10) well controlled on current regimen 11/22/2024 Primary osteoarthritis of both knees (ICD-10 - M17.0) continue orthopedic and pain management followup. replacement of the left knee is scheduled. underwent cardiac clearance earlier this year 11/22/2024 [facility] current use of anticoagulant (ICD-10 - Z79.01) complicates all aspects of care, see lab results and plan for Lovenox bridge 11/22/2024 RLS (restless legs syndrome) (ICD-10 - G25.81) continue requip 1mg with evening meal and 1mg at bedtime 11/22/2024 Immunization(s) administered (ICD-10 - Z23) 11/22/2024 Hyperlipidemia LDL goal <100 (ICD-10 - E78.5) continue statin therapy Plan Of Treatment Treatment Notes Assessment Notes Fibromyalgia continue cymbalta, g abapentin Other chronic pain [facility] on file. NSAI DS contraindicated due to coumadin use History of pulmonary embolism following with [facility] Cou[facility] Essential hypertension well controlled o n current regimen Next Appt Details Follow Up: 3 Months, Reason: Progress Notes * Ebonie BLUEDOB:[birth year] (69 yo F)Acc No.[id number]:11/22/2024 Progress Notes Patient: Ebonie ZAPATA Provider: VALENTINE Virgen :1955 A ge:69 Y S ex:Female Date:11/22/2024 Address:[address] [place] [address] LANA RHOADES, [id number] Pcp:Sherif Ridley Subjective: * Chief Complaints: * 1 . 3 Months F/U. 2. has knee replacement surgery on Dec 04 and Telly (Coumadin Clinic ) told her to see you regarding Lovenox. * HPI: g en: Presents for chronic disease FU. She is scheduled for left TKR, at [facility]. Needs orders for holding warfarin and using Lovenox bridge. Has had DVT recurrently, in the left leg, and worries about not bridging with Lovenox. Still reporting pretty severe left knee pain and intermittently with more acute pain and swelling in left knee, painful at rest, worse with weight bearing. Eye exam up to date. Denies any [...] pain. tramadol discontinued due to THC use. RLS symptoms stable on current regimen wound on the RLE (presumed spider bite) continues to heal, smaller, scant serous draiange. * ROS: R ESPIRATORY: Positive for a [...] DVT, COPD, Pulmonary embolism and infarction, other, Colonoscopy 2022, Chest pain with negative ECHO and lexiscan 06/25, Normal DEXA 2020, Asthma, Normal mammogram 06/01, Murmur - echo 05/2024 without significant valvular disease, Gout. * Surgical History: C arpel tunnel 1994, Appendectomy 38 yrs ago, Hysterectomy 1988, Foot Surgery 5 yrs ago, cholecystectomy 1999, Back surgery 2013, Back surgery 07/2015, left hand 2022. * Hospitalization/Major Diagno stic [...] tab(s) orally once a day , Taking rOPINIRole HCl 1 MG Tablet TAKE 1-2 TABLET BY MOUTH AT BEDTIME Orally Once a day , Taking Warfarin Sodium 7.5 MG Tablet TAKE 1 TABLET BY MOUTH ON TUESDAY, TUESDAY, TUESDAY, TUESDAY, AND SAT. THEN TAKE 1/2 TABLET ONCE DAILY ON TUESDAY AND TUESDAY DIRECTED , Taking Triamcinolone Acetonide 0.1 % Ointment 1 application Externally Twice a day , Taking Allopurinol 100 MG Tablet TAKE 1 TABLET BY MOUTH ONCE A DAY , Taking busPIRone HCl 10 MG Tablet TAKE 1 TABLET BY MOUTH TWICE DAILY , Taking Omeprazole 40 MG Capsule Delayed Release TAKE 1 CAPSULE BY MOUTH ONCE DAILY , Taking DULoxetine HCl 60 MG Capsule Delayed Release Particles TAKE 1 CAPSULE BY MOUTH TWICE DAILY , Taking Gabapentin 300 MG Capsule TAKE 1 CAPSULE BY MOUTH FOUR TIMES DAILY MAY CAUSE DROWSINESS , Discontinued Doxycycline Hyclate 100 MG Tablet 1 tablet Orally twice a day , Medication List reviewed and reconciled with the patient * Allergies: A ugmentin, Codeine, SULFA, OMNICEF: diarrhea, watery, ADHESIVE, LATEX, BIAXIN, Macrobid: itching - Allergy, Atorvastatin. Objective: * Vitals: N urse: jl, Pain: 3, Temp: 97.3, RR: 20, HR: 96, BP: 122/82, Ht: 5 ft 5.75 in, Wt: 207.8, BMI:33.79. * Examination: G eneral Examination: General P leasant and Cooperative, NAD on RA,. Oral cavity: D ry mucous membranes. Heart: R egular Rate and Rhythm, no rubs or gallops, 1/6 systolic murmur. Lungs: c lear to auscultation,. Abdomen: s oft, NT/ND, BS present. Neurologic Exam: A lert and oriented x 3. Skin: w ithout acute rashes. Peripheral pulses: d iminished. Extremities: m ild diffuse swelling left knee with limited flexion. Bunions bilat. neck s upple,, no thyromegaly,, no lymphadenopathy,. Psych N ormal Mood/Affect. Assessment: * Assessment: 1. H istory of recurrent deep vein thrombosis (DVT) - Z86.718 (Primary) 2 .?Gouty arthritis - M10.9 3 . F ibromyalgia - M79.7 4 . O ther chronic pain - G89.29 5 . H istory of pulmonary embolism - Z86.711 6 . E ssential hypertension - I10 7 . P rimary osteoarthritis of both knees - M17.0 8 . L elmer term current use of anticoagulant - Z79.01 ?9. R LS (restless legs syndrome) - G25.81 1 0. I mmunization(s) administered - Z23 1 1. H yperlipidemia LDL goal <100 - E78.5 Plan: * Treatment: 2. G outy arthritis L AB: LIPID PANEL, STANDARD (7600) (Collection Date & Time - 11/22/2024 02:32 PM) Value Reference Range T RIGLYCERIDES 164 H <150 - mg/dL * C HOLESTEROL, TOTAL 152 <200 - mg/dL * H DL CHOLESTEROL 46 L > OR = 50 - mg/dL * L DL-CHOLESTEROL 80 - mg/dL (calc) * C HOL/HDLC RATIO 3.3 <5.0 - (calc) * N ON HDL CHOLESTEROL 106 <130 - mg/dL (calc) * Carolyn Adamson 11/26/2024 09: 11:51 AM EDT > domenic Carolyn Adamson 11/26/2024 12:29:25 PM EDT > pt informedThis lab was reviewed by Carolyn Adamson on 11/26/2024 at 12:29 PM EDT ?LAB: COMPREHENSIVE METABOLIC PANEL (38977) (Collection Date & Time - 11/22/2024 02:32 PM)* Value Reference Range G LUCOSE 103 H 65-99 - mg/dL * U GI NITROGEN (BUN) 10 7-25 - mg/dL * C REATININE 0.81 0.50-1.05 - mg/dL * B UN/CREATININE RATIO SEE NOTE: 07-29 - (calc) * S ODIUM 139 135-146 - mmol/L * P OTASSIUM 4.0 3.5-5.3 - mmol/L * C HLORIDE 106 98-110 - mmol/L * C ARBON DIOXIDE 25 20-32 - mmol/L * C ALCIUM 9.6 8.6-10.4 - mg/dL * P ROTEIN, TOTAL 6.8 6.1-8.1 - g/dL * A LBUMIN 4.1 3.6-5.1 - g/dL * G LOBULIN 2.7 1.9-3.7 - g/dL (calc ) * A LBUMIN/GLOBULIN RATIO 1.5 1.0-2.5 - (calc) * B ILIRUBIN, TOTAL 0.4 0.2-1.2 - mg/dL * A LKALINE PHOSPHATASE 99 37-153 - U/L * A ST 16 10-35 - U/L * A LT 16 6-29 - U/L * E GFR 79 > OR = 60 - mL/min/1 .73m2 * Carolyn Adamson 11/26/2024 09: 11:51 AM EDT > domenic Carolyn Adamson 11/26/2024 12:29:25 PM EDT > pt informedThis lab was reviewed by Carolyn Adamson on 11/26/2024 at 12:29 PM EDT ?LAB: URIC ACID (905) (Collection Date & Time - 11/22/2024 02:32 PM)* Value Reference Range U HAJA ACID 6.1 2.5-7.0 - mg/dL * Carolyn Adamson Nciolas 11/26/2024 09: 11:51 AM EDT > domenic Carolyn Adamson Nicolas 11/26/2024 12:29:25 PM EDT > pt informedThis lab was reviewed by Carolyn Adamson on 11/26/2024 at 12:29 PM EDT ?LAB: CBC (INCLUDES DIFF/PLT) (6399) (Collection Date & Time - 11/22/2024 02:32 PM)* Value Reference Range W VEE BLOOD CELL COUNT 7.6 3.8-10.8 - Thousan d/uL * R ED BLOOD CELL COUNT 4.03 3.80-5.10 - Million/ uL * H EMOGLOBIN 12.0 11.7-15.5 - g/dL * H EMATOCRIT 37.6 35.0-45.0 - % * M CV 93.3 80.0-100.0 - fL * M CH 29.8 27.0-33.0 - pg * M CHC 31.9 L 32.0-36.0 - g/dL * R DW 14.4 11.0-15.0 - % * P LATELET COUNT 290 140-400 - Thousand/u L * N EUTROPHILS 57 - % * A BSOLUTE NEUTROPHILS 4332 5914-0616 - cells/uL * L YMPHOCYTES 28.3 - % * A BSOLUTE LYMPHOCYTES 2151 850-3900 - cells/uL * M ONOCYTES 7.5 - % * A BSOLUTE MONOCYTES 570 200-950 - cells/uL * E OSINOPHILS 6.1 - % * A BSOLUTE EOSINOPHILS 464 15-500 - cells/uL * B ASOPHILS 1.1 - % * A BSOLUTE BASOPHILS 84 0-200 - cells/uL * M PV 10.5 7.5-12.5 - fL * Carolyn Adamson Nicolas 11/26/2024 09: 11:51 AM EDT > domenic Carolyn Adamson Nicolas 11/26/2024 12:29:25 PM EDT > pt informedThis lab was reviewed by Carolyn Adamson on 11/26/2024 at 12:29 PM EDT ?LAB: PROTHROMBIN TIME-INR (8847) (Collection Date & Time - 11/22/2024 02:32 PM)* Value Reference Range P T 14.7 H 9.0-11.5 - sec * I NR 1.4 H - * Carolyn Adamson 11/26/2024 09: 11:51 AM EDT > Carolyn Adasmon 11/26/2024 12:29:25 PM EDT > pt informedThis lab was reviewed by Carolyn Adamson on 11/26/2024 at 12:29 PM EDT Clinical Notes: continue allopurinol??3.?Fibromyalgia? Notes: continue cymbalta, gabapentin??4.?Other chronic pain? Notes: [facility] on file. NSAIDS contraindicated due to coumadin use??5.?History of pulmonary embolism?LAB: LIPID PANEL, STANDARD (7600) (Collection Date & Time - 11/22/2024 02:32 PM)* Value Reference Range T RIGLYCERIDES 164 H <150 - mg/dL * C HOLESTEROL, TOTAL 152 <200 - mg/dL * H DL CHOLESTEROL 46 L > OR = 50 - mg/dL * L DL-CHOLESTEROL 80 - mg/dL (calc) * C HOL/HDLC RATIO 3.3 <5.0 - (calc) * N ON HDL CHOLESTEROL 106 <130 - mg/dL (calc) * Carolyn Adamson 11/26/2024 09: 11:51 AM EDT > Carolyn Adamson 11/26/2024 12:29:25 PM EDT > pt informedThis lab was reviewed by Carolyn Adamson on 11/26/2024 at 12:29 PM EDT ?LAB: COMPREHENSIVE METABOLIC PANEL (65979) (Collection Date & Time - 11/22/2024 02:32 PM)* Value Reference Range G LUCOSE 103 H 65-99 - mg/dL * U GI NITROGEN (BUN) 10 7-25 - mg/dL * C REATININE 0.81 0.50-1.05 - mg/dL * B UN/CREATININE RATIO SEE NOTE: 6-22 - (calc) * S ODIUM 139 135-146 - mmol/L * P OTASSIUM 4.0 3.5-5.3 - mmol/L * C HLORIDE 106 98-110 - mmol/L * C ARBON DIOXIDE 25 20-32 - mmol/L * C ALCIUM 9.6 8.6-10.4 - mg/dL * P ROTEIN, TOTAL 6.8 6.1-8.1 - g/dL * A LBUMIN 4.1 3.6-5.1 - g/dL * G LOBULIN 2.7 1.9-3.7 - g/dL (calc ) * A LBUMIN/GLOBULIN RATIO 1.5 1.0-2.5 - (calc) * B ILIRUBIN, TOTAL 0.4 0.2-1.2 - mg/dL * A LKALINE PHOSPHATASE 99 37-153 - U/L * A ST 16 10-35 - U/L * A LT 16 6-29 - U/L * E GFR 79 > OR = 60 - mL/min/1 .73m2 * Carolyn Adamson 11/26/2024 09: 11:51 AM EDT > lm Carolyn Adamson 11/26/2024 12:29:25 PM EDT > pt informedThis lab was reviewed by Carolyn Adamson on 11/26/2024 at 12:29 PM EDT ?LAB: CBC (INCLUDES DIFF/PLT) (8873) (Collection Date & Time - 11/22/2024 02:32 PM)* Value Reference Range W VEE BLOOD CELL COUNT 7.6 3.8-10.8 - Thousan d/uL * R ED BLOOD CELL COUNT 4.03 3.80-5.10 - Million/ uL * H EMOGLOBIN 12.0 11.7-15.5 - g/dL * H EMATOCRIT 37.6 35.0-45.0 - % * M CV 93.3 80.0-100.0 - fL * M CH 29.8 27.0-33.0 - pg * M CHC 31.9 L 32.0-36.0 - g/dL * R DW 14.4 11.0-15.0 - % * P LATELET COUNT 290 140-400 - Thousand/u L * N EUTROPHILS 57 - % * A BSOLUTE NEUTROPHILS 4332 9793-3093 - cells/uL * L YMPHOCYTES 28.3 - % * A BSOLUTE LYMPHOCYTES 2151 850-3900 - cells/uL * M ONOCYTES 7.5 - % * A BSOLUTE MONOCYTES 570 200-950 - cells/uL * E OSINOPHILS 6.1 - % * A BSOLUTE EOSINOPHILS 464 15-500 - cells/uL * B ASOPHILS 1.1 - % * A BSOLUTE BASOPHILS 84 0-200 - cells/uL * M PV 10.5 7.5-12.5 - fL * Carolyn Adamson Nicolas 11/26/2024 09: 11:51 AM EDT > Carolyn Adamson Nicolas 11/26/2024 12:29:25 PM EDT > pt informedThis lab was reviewed by Carolyn Adamson on 11/26/2024 at 12:29 PM EDT ?LAB: PROTHROMBIN TIME-INR (8847) (Collection Date & Time - 11/22/2024 02:32 PM)* Value Reference Range P T 14.7 H 9.0-11.5 - sec * I NR 1.4 H - * Juan DiegoCarolyn Nicolas 11/26/2024 09: 11:51 AM EDT > Carolyn Adamson 11/26/2024 12:29:25 PM EDT > pt informedThis lab was reviewed by Carolyn Adamson on 11/26/2024 at 12:29 PM EDT Notes: following with [facility]??6.?Essential hypertension?LAB: LIPID PANEL, STANDARD (7600) (Collection Date & Time - 11/22/2024 02:32 PM)* Value Reference Range T RIGLYCERIDES 164 H <150 - mg/dL * C HOLESTEROL, TOTAL 152 <200 - mg/dL * H DL CHOLESTEROL 46 L > OR = 50 - mg/dL * L DL-CHOLESTEROL 80 - mg/dL (calc) * C HOL/HDLC RATIO 3.3 <5.0 - (calc) * N ON HDL CHOLESTEROL 106 <130 - mg/dL (calc) * Juan DiegoCarolyn Nicolas 11/26/2024 09: 11:51 AM EDT > Carolyn Adamson Nicolas 11/26/2024 12:29:25 PM EDT > pt informedThis lab was reviewed by Carolyn Adamson on 11/26/2024 at 12:29 PM EDT ?LAB: COMPREHENSIVE METABOLIC PANEL (21095) (Collection Date & Time - 11/22/2024 02:32 PM)* Value Reference Range G LUCOSE 103 H 65-99 - mg/dL * U GI NITROGEN (BUN) 10 7-25 - mg/dL * C REATININE 0.81 0.50-1.05 - mg/dL * B UN/CREATININE RATIO SEE NOTE: 6-22 - (calc) * S ODIUM 139 135-146 - mmol/L * P OTASSIUM 4.0 3.5-5.3 - mmol/L * C HLORIDE 106 98-110 - mmol/L * C ARBON DIOXIDE 25 20-32 - mmol/L * C ALCIUM 9.6 8.6-10.4 - mg/dL * P ROTEIN, TOTAL 6.8 6.1-8.1 - g/dL * A LBUMIN 4.1 3.6-5.1 - g/dL * G LOBULIN 2.7 1.9-3.7 - g/dL (calc ) * A LBUMIN/GLOBULIN RATIO 1.5 1.0-2.5 - (calc) * B ILIRUBIN, TOTAL 0.4 0.2-1.2 - mg/dL * A LKALINE PHOSPHATASE 99 37-153 - U/L * A ST 16 10-35 - U/L * A LT 16 6-29 - U/L * E GFR 79 > OR = 60 - mL/min/1 .73m2 * Carolyn Adamson 11/26/2024 09: 11:51 AM EDT > lm Carolyn Adamson 11/26/2024 12:29:25 PM EDT > pt informedThis lab was reviewed by Carolyn Adamson on 11/26/2024 at 12:29 PM EDT ?LAB: CBC (INCLUDES DIFF/PLT) (6529) (Collection Date & Time - 11/22/2024 02:32 PM)* Value Reference Range W VEE BLOOD CELL COUNT 7.6 3.8-10.8 - Thousan d/uL * R ED BLOOD CELL COUNT 4.03 3.80-5.10 - Million/ uL * H EMOGLOBIN 12.0 11.7-15.5 - g/dL * H EMATOCRIT 37.6 35.0-45.0 - % * M CV 93.3 80.0-100.0 - fL * M CH 29.8 27.0-33.0 - pg * M CHC 31.9 L 32.0-36.0 - g/dL * R DW 14.4 11.0-15.0 - % * P LATELET COUNT 290 140-400 - Thousand/u L * N EUTROPHILS 57 - % * A BSOLUTE NEUTROPHILS 4332 2104-1906 - cells/uL * L YMPHOCYTES 28.3 - % * A BSOLUTE LYMPHOCYTES 2151 850-3900 - cells/uL * M ONOCYTES 7.5 - % * A BSOLUTE MONOCYTES 570 200-950 - cells/uL * E OSINOPHILS 6.1 - % * A BSOLUTE EOSINOPHILS 464 15-500 - cells/uL * B ASOPHILS 1.1 - % * A BSOLUTE BASOPHILS 84 0-200 - cells/uL * M PV 10.5 7.5-12.5 - fL * Carolyn Adamson 11/26/2024 09: 11:51 AM EDT > lm Carolyn Adamson 11/26/2024 12:29:25 PM EDT > pt informedThis lab was reviewed by Carolyn Adamson on 11/26/2024 at 12:29 PM EDT ?LAB: PROTHROMBIN TIME-INR (8847) (Collection Date & Time - 11/22/2024 02:32 PM)* Value Reference Range P T 14.7 H 9.0-11.5 - sec * I NR 1.4 H - * Carolyn Adamson 11/26/2024 09: 11:51 AM EDT > Carolyn Delgado 11/26/2024 12:29:25 PM EDT > pt informedThis lab was reviewed by Carolyn Adamson on 11/26/2024 at 12:29 PM EDT Notes: well controlled on current regimen??7.?Primary osteoarthritis of both knees? Clinical Notes: continue orthopedic and pain management followup. replacement of the left knee is scheduled. underwent cardiac clearance earlier this year?? 8.?[facility] current use of anticoagulant? Clinical Notes: complicates all aspects of care, see lab results and plan for Lovenox bridge? 9.?RLS (restless legs syndrome)? Clinical Notes: continue requip 1mg with evening meal and 1mg at bedtime?? 10.?Hyperlipidemia LDL goal <100?LAB: LIPID PANEL, STANDARD (7600) (Collection Date & Time - 11/22/2024 02:32 PM)* Value Reference Range T RIGLYCERIDES 164 H <150 - mg/dL * C HOLESTEROL, TOTAL 152 <200 - mg/dL * H DL CHOLESTEROL 46 L > OR = 50 - mg/dL * L DL-CHOLESTEROL 80 - mg/dL (calc) * C HOL/HDLC RATIO 3.3 <5.0 - (calc) * N ON HDL CHOLESTEROL 106 <130 - mg/dL (calc) * Carolyn Adamson 11/26/2024 09: 11:51 AM EDT > lm Carolyn Adamson 11/26/2024 12:29:25 PM EDT > pt informedThis lab was reviewed by Carolyn Adamson on 11/26/2024 at 12:29 PM EDT ?LAB: COMPREHENSIVE METABOLIC PANEL (10558) (Collection Date & Time - 11/22/2024 02:32 PM)* Value Reference Range G LUCOSE 103 H 65-99 - mg/dL * U GI NITROGEN (BUN) 10 7-25 - mg/dL * C REATININE 0.81 0.50-1.05 - mg/dL * B UN/CREATININE RATIO SEE NOTE: 622 - (calc) * S ODIUM 139 135-146 - mmol/L * P OTASSIUM 4.0 3.5-5.3 - mmol/L * C HLORIDE 106 98-110 - mmol/L * C ARBON DIOXIDE 25 20-32 - mmol/L * C ALCIUM 9.6 8.6-10.4 - mg/dL * P ROTEIN, TOTAL 6.8 6.1-8.1 - g/dL * A LBUMIN 4.1 3.6-5.1 - g/dL * G LOBULIN 2.7 1.9-3.7 - g/dL (calc ) * A LBUMIN/GLOBULIN RATIO 1.5 1.0-2.5 - (calc) * B ILIRUBIN, TOTAL 0.4 0.2-1.2 - mg/dL * A LKALINE PHOSPHATASE 99 37-153 - U/L * A ST 16 10-35 - U/L * A LT 16 6-29 - U/L * E GFR 79 > OR = 60 - mL/min/1 .73m2 * Juan DiegoJordonjosé miguel Valenzuela 11/26/2024 09: 11:51 AM EDT > domenic AdamsonJordonjosé miguel Valenzuela 11/26/2024 12:29:25 PM EDT > pt informedThis lab was reviewed by Carolyn Adamson on 11/26/2024 at 12:29 PM EDT ?LAB: CBC (INCLUDES DIFF/PLT) (6399) (Collection Date & Time - 11/22/2024 02:32 PM)* Value Reference Range W VEE BLOOD CELL COUNT 7.6 3.8-10.8 - Thousan d/uL * R ED BLOOD CELL COUNT 4.03 3.80-5.10 - Million/ uL * H EMOGLOBIN 12.0 11.7-15.5 - g/dL * H EMATOCRIT 37.6 35.0-45.0 - % * M CV 93.3 80.0-100.0 - fL * M CH 29.8 27.0-33.0 - pg * M CHC 31.9 L 32.0-36.0 - g/dL * R DW 14.4 11.0-15.0 - % * P LATELET COUNT 290 140-400 - Thousand/u L * N EUTROPHILS 57 - % * A BSOLUTE NEUTROPHILS 4332 5902-9423 - cells/uL * L YMPHOCYTES 28.3 - % * A BSOLUTE LYMPHOCYTES 2151 850-3900 - cells/uL * M ONOCYTES 7.5 - % * A BSOLUTE MONOCYTES 570 200-950 - cells/uL * E OSINOPHILS 6.1 - % * A BSOLUTE EOSINOPHILS 464 15-500 - cells/uL * B ASOPHILS 1.1 - % * A BSOLUTE BASOPHILS 84 0-200 - cells/uL * M PV 10.5 7.5-12.5 - fL * Juan Diego Carolyn M 11/26/2024 09: 11:51 AM EDT > domenic Carolyn Adamson Nicolas 11/26/2024 12:29:25 PM EDT > pt informedThis lab was reviewed by Carolyn Adamson on 11/26/2024 at 12:29 PM EDT ?LAB: PROTHROMBIN TIME-INR (8847) (Collection Date & Time - 11/22/2024 02:32 PM)* Value Reference Range P T 14.7 H 9.0-11.5 - sec * I NR 1.4 H - * Carolyn Adamson 11/26/2024 09: 11:51 AM EDT > lm Carolyn Adamson 11/26/2024 12:29:25 PM EDT > pt informedThis lab was reviewed by Carolyn Adamson on 11/26/2024 at 12:29 PM EDT Clinical Notes: continue statin therapy?? * Immunizations: Fluzone High Dose : 0.5 mL (Route: Intramuscular) given by Anupama James , BNE on Left Deltoid (Immunization(s) administered) Arexvy : 0.5 mL (Route: Intramuscular) given by Anupama James , BNE on Right Deltoid * Procedure Codes: 9 0679 Arexvy, 00089 ADMINISTRATION IMMUNIZATION ONE VACCINE, 23353 Influenza High Dose Vaccine >65 Years Old, G0008 ADMINISTRATION-FLU VACCINE MEDICARE ONLY, G2211 Complex e/m visit add on * Follow Up: 3 Months * * Sign off status: Completed true * Provider: VALENTINE Virgen Date: Generated for Emmie jimenez/Ratna/eTransmitting on: 02/10/2024 02:09 PM EST History and Physical Notes * Examination Category Sub-Category Detail Notes Category Not es General Examination Heart: Regular Rate and Rhythm, no rubs or gallops, 1/6 systolic murmur Lungs: clear to auscultatio n, Abdomen: soft, [...]
--- OUTSIDE RECORDS SUMMARY | 2024-11-28 12:17 | XMS_ITS | Encounter Summary ---
Author Organization [employer] ([place], [place], [place], [place], [place]) Address [address] [place] [address] Care Team Providers Care News Camera Operator Name Role Phone Yanet Barreraew Primary Care Provider [phone] Reason for Referral * CAT Scan (Routine) - New Request Specialty Diagnoses / Procedures Referred By Contac t Referred To Contact Radiology Diagnoses Pain in left knee Procedures CT lower extremity without IV contrast left Knee Willy Pantoja MD [address] [place] [address] Phone: tel: fax: Referral ID Status Reason Start Date Expiration Date V isits Requested Visits Authorized [id number] New Request 11/28/2024 11/28/2025 1 1 Reason for Visit * CAT Scan (Routine) - New Request Specialty Diagnoses / Procedures Referred By Contac t Referred To Contact Radiology Diagnoses Pain in left knee Procedures CT lower extremity without IV contrast left Knee Willy Pantoja MD [address] [place] [address] Phone: tel: fax: Referral ID Status Reason Start Date Expiration Date V isits Requested Visits Authorized [id number] New Request 11/28/2024 11/28/2025 1 1 Encounter Details Date Type Department Care Team (Late st Contact Info) Description 11/28/2024 1:17 PM EDT - 11/28/2024 11:59 PM EDT Hospital Encounter [facility] [address] [place] [address] Willy Pantoja MD [address] [facility] [address] [place] [address] Pain in left knee Discharge Disposition: Home or Self Care Social History Tobacco Use Types Packs/Day Years Used Date Smoking Tobacco: Never Assessed Food Insecurity Answer Date Recorded Food run [...] Date Ivan rded Speak language other than Armenian at home Not on file 02/26/2023 Want help with school or training Not on file 02/26/2023 Substance Use Answer Date Recorded Used [...] on file documented as of this encounter Procedures Procedure Name Priority Date/Time Associated Diagnosis Comments CT LOWER EXTREMITY WITHOUT IV CONTRAST LEFT Routine 11/28/2024 1:41 PM EDT Pain in left knee documented in this encounter Results * CT lower extremity without IV contrast left Knee (11/28/2024 1:41 PM EDT) Anatomical Region Laterality Modality Lower Extremity, Hip, Femur, Leg, Knee, Ankle, Foot Computed Tomography (CT) 11/29/2024 4:04 PM EDT Impressions 11/29/2024 4:21 PM EDT Degenerative joint disease. Images reviewed, interpreted, and dictated by Dr. Neftali Sauceda. Transcribed by Tod Lucero PA-C Narrative 11/29/2024 4:[address] SCAN LEFT LOWER EXTREMITY 11/28/2024 1:35 PM HISTORY: Knee osteoarthritis. Ray protocol. COMPARISON: None. PROCEDURE: Axial images were obtained through the lower extremity by computed tomography. Sagittal and coronal reconstruction images were performed. This study was performed with techniques to keep radiation doses as low as reasonably achievable, (ALARA). Individualized dose reduction techniques using automated exposure control or adjustment of mA and/or kV according to the patient size were employed. FINDINGS: No acute bony abnormality is identified. There is advanced narrowing of the medial compartment with subchondral sclerosis and cyst formation. Moderate osteophyte formation is seen of the medial joint margin. There is a small joint effusion. Procedure Note Neftali Sauceda MD - 11/29/2024 CT SCAN LEFT LOWER EXTREMITY 11/28/2024 1:35 PM HISTORY: Knee osteoarthritis. Ray protocol. COMPARISON: None. PROCEDURE: Axial images were obtained through the lower extremity by computed tomography. Sagittal and coronal reconstruction images were performed. This study was performed with techniques to keep radiation doses as low as reasonably achievable, (ALARA). Individualized dose reduction techniques using automated exposure control or adjustment of mA and/or kV according to the patient size were employed. FINDINGS: No acute bony abnormality is identified. There is advanced narrowing of the medial compartment with subchondral sclerosis and cyst formation. Moderate osteophyte formation is seen of the medial joint margin. There is a small joint effusion. IMPRESSION: Degenerative joint disease. Images reviewed, interpreted, and dictated by Dr. Neftali Sauceda. Transcribed by Tod Lucero PA-C Willy Pantoja MD IM CT ORDERABLES Final Result documented in this encounter Visit Diagnoses Diagnosis Pain in left knee documented in this encounter Care Teams News Camera Operator Relationship Specialty Start Date End Date Beto Barrera [address] [place] [address] PCP - General 12/02/21 documented as of this encounter
--- OUTSIDE RECORDS SUMMARY | 2024-12-10 14:08 | XMS_ITS | Clinical Summary ---
Author Organization [employer] ([place], [place], [place], [place], [place]) Address [address] [place] [address] Care Team Providers Care Hand Bobbin Cleaner Name Role Phone Beto Barrera Primary Care Provider [phone] Allergies Active Allergy Reactions Criticality Noted Date Comments Latex 12/10/2021 Sulfa (Sulfonamide Antibiotics) 04/2021 Encounters Date Type Department Care Team Description 11/28/2024 1:17 PM EDT - 11/28/2024 11:59 PM EDT Hospital Encounter [facility] - [facility] [address] [facility] [address] [place] [address] Willy Patnoja MD Pain in left knee Discharge Disposition: Home or Self Care from Last 3 Months Social History Tobacco Use Types Packs/Day Years [...] Date Ivan rded Speak language other than Georgian at home Not on file 02/26/2023 Want [...] 2) 2006 Medicare Initial AWV G0438 08/08/2008 Falls Risk Screening 02/08/2024 COVID-19 VACCINE ( season) 2024, 04/23/2020 Influenza Vaccine (#1) 2024 12/02/2022 Respiratory Syncytial Virus (RSV) Adult or (1 - 1-dose 75+ series) 09/28/2031 Pneumococcal 50+ years Completed , 02/22/2018, 11/19/2016 Procedures Procedure Name Priority Date/Time Associated Diagnosis Comments CT LOWER EXTREMITY WITHOUT IV CONTRAST LEFT Routine 11/28/2024 1:41 PM EDT Pain in left knee from Last 3 Months Results * CT lower extremity without IV [...] by Tod Lucero PA-C Willy Pantoja MD IMG CT ORDERABLES Final Result from Last [address] [place] [id number] [employer] [place] [id number] MEDICARE PART A B Care Teams Hand Bobbin Cleaner Relationship Specialty Start Date End Date Beto Barrera [address] [facility] [address] [place] [address] PCP - General 12/02/21
--- OUTSIDE RECORDS SUMMARY | 2024-12-10 14:08 | XMS_ITS | Encounter Summary ---
Author Organization [employer] ([place], [place], [place], [place], [place]) Address [address] [place] [address] Care Team Providers Care Commissioner Of Internal Revenue Name Role Phone Beto Barrera Primary Care Provider [phone] Encounter Details Date Type Department Care Team (Late st Contact Info) Description 11/30/2021 Outside Orders [facility] Central Scheduling [address] [place] [address] Rock Toribio MD [address] [facility] 2nd floor [place], [place] [id number] Right shoulder pain, unspecified chronicity (Primary Dx) [...] Primary documented in this encounter Care Teams Commissioner Of Internal Revenue Relationship Specialty Start Date End Date Beto Barrera [address] [place] [address] PCP - General 12/02/21 documented as of this encounter
--- OUTSIDE RECORDS SUMMARY | 2024-12-10 14:09 | XMS_ITS | Clinical Summary ---
Author Organization [facility] Address [address] [place] [address] Care Team Providers Care Page Designer Name Role Phone Provider, No Known Primary [...] - PCV20 or PCV21) 02/22/2023 02/22/2018, 11/19/2016 INFLUENZA VACCINE 09/07/2024 10/23/2020, 10/23/2019 COVID-19 Vaccine ( season) 2024 Insurance MEDICARE A & B [employer] [place] [id number] Care Teams Page Designer Relationship Specialty Start Date End Date Provider, [place] [address] PCP - General 05/21/22
--- OUTSIDE RECORDS SUMMARY | 2024-12-10 14:10 | XMS_ITS | Encounter Summary ---
Author Organization [facility] Address [address] [place] [address] Care Team Providers Care Market Manager Name Role Phone Sherif Ridley MD Primary Care Provider [phone] Tommie Gayle MD Unavailable [phone] Encounter Details Date Type Department Care Team (Latest Contact Info) Description 10/19/2024 Travel Social History Tobacco Use Types Packs/Day Years Used Date Smoking Tobacco: Former Cigarettes 1 37 1 971 - 2008 Passive Smoke Exposure: [...] 10/19/2024 12:21 PM EDT Gracie Portillo A Feeling down, depressed, or hopeless Not at all 10/19/2024 12:21 PM EDT Gracie Portillo A Patient Health Questionnaire -2 Score 0 10/19/2024 12:21 PM EDT Gracie Portillo A * Question Answer Date of Assessment Author Trouble falling or staying asleep, or sleeping too much Not at all 10/19/2024 12:21 PM EDT Sree Portillot A Feeling tired or having to le energy Not at all 10/19/2024 12:21 PM EDT Sree Portillot A Poor appetite or overeating Not at all 10/19/2024 12 :21 PM EDT Sree Portillot A Feeling bad about yourself - or [...] all 10/19/2024 12:21 PM EDT Gracie Hyman documented as of this encounter Plan of Treatment Upcoming Encounters Date Type Department Care Team (Late st Contact Info) Description 10/25/2025 12:00 PM EDT Appointment [facility] [address] [place] [address] 10/25/2025 1:20 PM EDT Office Visit [facility] [address] [place] [address] Willy Wise MD [address] [place] [address] documented as of this encounter Visit Diagnoses Not on filedocumented in this encounter Additional Health Concerns Assessment Noted Time PHQ-9 Depression Total Score: 0 10/20/19 12:21 PM EDT A fall risk assessment has been complete d for the patient 10/19/2024 12:22 PM EDT A Body Mass Index follow-up plan has been documented for the patient 10/19/2024 2:45 PM EDT documented as of this encounter Care Teams Market Manager Relationship Specialty Start Date End Date Sherif Ridley MD [address] [place] [address] PCP - General 06/20/20 Tommie Gayle MD [address] [place] [address] Surgeon Neurosurgery 12/01/21 documented as of this encounter
--- OUTSIDE RECORDS SUMMARY | 2024-12-10 14:10 | XMS_ITS | Clinical Summary ---
Author Organization [facility] Address [address] [place] [address] Care Team Providers Care Healthcare Marketer Name Role Phone Sherif Ridley MD Primary Care Provider [phone] Tommie Gayle MD Unavailable [phone] Allergies Active Allergy Reactions Criticality Noted Date Comments 2nd Skin Quick Heal Rash Low 10/30/2012 Amoxicillin-Pot Clavulanate Rash,Unknown - Patient states they do not know rxn details,Hives Medium 10/30/2012 Atorvastatin Unknown - Patient states they do not know rxn details Low 04/13/2024 Cefdinir Diarrhea,Unknown - Patient states they do not know rxn details Low 07/17/2015 Clarithromycin Other - please document in the comment field,Unknown - Patient states they do not know rxn details Low 10/30/2012 severe diarrhea Clavulanic Acid Rash Low 09/29/2021 Codeine Unknown - Patient states they do not know rxn details,Other - please document in the comment field Low 10/30/2012 Latex Rash,Unknown - Patient states they do not know rxn details Low 07/17/2015 Nitrofurantoin Itching Medium 10/07/2023 Wound Dressing Adhesive Unknown - Patien t states they do not know rxn details Low 07/17/2015 Penicillins Rash Low 08/20/2022 Sulfa Drugs Rash,Unknown - Patient states they do not know rxn details,Hives Medium 07/17/2015 Sulfacetamide Itching,Hives Medium 11/16/2018 Tape/Bandaid Adhesive Unknown - Patient states they do not know rxn details Low 10/19/2024 Tapentadol Rash Low 10/30/2012 Plastic tape OK [...] ophthalmic solution 08/11/19 23 Active HYDROcodone-acetam inophen ([place]) 5-325 MG tablet 06/02/19 23 Active omalizumab [...] mg) by mouth Daily. 01/30/20 24 Active allopurinol (Zyloprim) 100 MG tablet 1 (one) time each day at the same time. 08/17/19 25 Active doxycycline (Vibramycin) 100 MG capsule 10/16/19 25 Active minoxidil (Loniten) 10 MG tablet Take 1 tablet by mouth. Active mupirocin (Bactroban) 2 % ointment 10/16/19 25 Active Encounters Date Type Department Care Team Description 10/19/2024 1:00 PM EDT Office Visit [facility] [address] [place] [address] Willy Wise MD History of tobacco abuse (Primary Dx); Moderate asthma, unspecified whether complicated, unspecified whether persistent 10/19/2024 11:24 AM EDT - 10/19/2024 11:59 PM EDT Hospital Encounter [facility] [address] [place] [address] History of tobacco abuse Discharge Disposition: Home or Self Care 10/19/2024 Travel from Last 3 Months Immunizations Immunization [...] F) 10/19/2024 12:16 PM EDT Respiratory Rate 18 10/07/2023 12:56 PM EDT Oxygen Saturation 93% 10/19/2024 12:16 PM EDT Inhaled Oxygen Concentration - - Weight 93.9 kg (207 lb) 10/19/2024 12:16 PM EDT Height 166.4 cm (5' 5.5 ) 10/19/2024 12:16 PM ED T Body Mass Index 33.92 10/19/2024 12:16 PM EDT Plan of Treatment Upcoming Encounters Date Type Department Care Team (Late st Contact Info) Description 10/25/2025 12:00 PM EDT Appointment [facility] [address] [place] [address] 10/25/2025 1:20 PM EDT Office Visit [facility] [address] [place] [address] Willy Wise MD [address] [place] [address] Health Maintenance Due Date Last Done Comments [...] - Risk 60-74 years 1-dose series) 2016 [id number] Vaccine (3 - Moderna risk series) 06/18/2020 05/21/2020, 04/23/2020 [facility]-Pneumococcal Vaccine: 50+ Years (3 of 3 - PCV20 or PCV21) 03/30/2024 03/30/2019, 02/22/2018, 11/19/2016 [facility]-Zoster Vaccines (2 of 2) 06/25/2024 04/30/2024 [facility]-Influenza Vaccine (#1) 10/08/202404/30, 12/02/2022, 12/08/2021, Additional history exists [facility]-Depression Screening 10/19/2025 025, 10/19/2024, 10/07/2023 [facility]-Lung Cancer Screening Discontinued 2024, 10/07/2023, 09/28/2022, Additional history exists [facility]-Obesity Intervention Completed 025, 04/13/2024, 10/07/2023, Additional history exists HPV Vaccines Aged Out [...] 11:37 AM EDT History of tobacco abuse from Last 3 Months Results * CT Chest Lung Cancer Screening [...] Final Resu lt from Last 3 Months Insurance MEDICARE [employer] MEDICARE SUPPLEMENT [employer] C/O [place] [id number] Care Teams Healthcare Marketer Relationship Specialty Start Date End Date Sherif Ridley MD [address] [place] [address] PCP - General 06/20/20 Tommie Gayle MD [address] [facility] [address] [place] [address] Surgeon Neurosurgery 12/01/21
--- OUTSIDE RECORDS SUMMARY | 2024-12-10 14:10 | XMS_ITS | Referral Summary ---
Author Organization [employer] ([place], [place], [place], [place], [place]) Address [address] [place] [address] Care Team Providers Care Jewelry Making Instructor Name Role Phone Beto Barrera Primary Care Provider [phone] Encounters Date Type Department Care Team Description 11/28/2024 1:17 PM EDT - 11/28/2024 11:59 PM EDT Hospital Encounter [facility] CT - [facility] [address] [facility] [address] [place] [address] Willy Pantoja MD Pain in left knee Discharge Disposition: Home or Self Care from Last 3 Months Allergies Active Allergy Reactions Criticality Noted Date [...] Date Ivan rded Speak language other than Latvian at home Not on file 02/26/2023 Want [...] file Plan of Treatment Not on file Procedures Procedure Name Priority Date/Time Associated Diagnosis [...] Final Result from Last 3 Months Insurance [place] [id number] [employer] MEDICARE PART A B Care Teams Jewelry Making Instructor Relationship Specialty Start Date End Date Beto Barrera [address] [facility] [address] [place] [address] PCP - General 12/02/21
--- OUTSIDE RECORDS SUMMARY | 2024-12-10 14:10 | XMS_ITS | Patient Health Record ---
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 Seth HART et al. JANESSA. 2013;310(19): 0388-2151 (http://education.Percolate/faq/FAQ 164) CHOL/HDLC RATIO 3.3 <5.0 (calc) NON HDL CHOLESTEROL 106 <130 mg/dL (calc) For patients with diabetes plus 1 major ASCVD risk factor, treating to a non-HDL-C goal of <100 mg/dL (LDL-C of <70 mg/dL) is considered a therapeutic option. COMPREHENSIVE METABOLIC HARPAL Valdes (60445) Reviewed date:11/26/2024 12:29:52 PM Interpretation: Performing Lab:[facility] [employer] Ivan-Reddy [address]elloe[address] [facility] HospitalReddy Roberts[address] Wse Oakley Notes/Report: NON-FASTING; NON-FASTING; NON-FASTING; NON-FASTING; NON-FAST [...] (905) Reviewed date:11/26/2024 12:29:52 PM Interpretation: Performing Lab:KEVIN, [employer] ID [id number] [place]. [employer], [facility] [id number] Wes Oakley Notes/Report: NON-FASTING; NON-FASTING; NON-FASTING; NON-FASTING; NON-FAST URIC ACID 6.1 2.5-7.0 mg/dL Therapeutic target for gout patients: <6.0 mg/dL CBC (INCLUDES DIFF/PLT) (639 9) Reviewed date:11/26/2024 12:29:52 PM Interpretation: Performing Lab:KEVIN, [employer] ID [id number] [place]. [employer], [facility] HospitalDfufWZ[address] Wes Oakley Notes/Report: NON-FASTING; NON-FASTING; NON-FASTING; NON-FASTING; NON-FAST WHITE BLOOD CELL COUNT 7.6 3.8-10.8 Thousand/uL RED BLOOD CELL COUNT 4.03 3.80-5.10 Million/uL [...] MPV 10.5 7.5-12.5 fL ABSOLUTE NEUTROPHILS 4332 [phone] cells/uL ABSOLUTE LYMPHOCYTES 2151 850-3900 cells/uL ABSOLUTE MONOCYTES 570 200-950 cells/uL ABSOLUTE EOSINOPHILS 464 15-500 cells/uL ABSOLUTE BASOPHILS 84 0-200 cells/uL NEUTROPHILS 57 LYMPHOCYTES 28.3 MONOCYTES 7.5 EOSINOPHILS 6.1 BASOPHILS 1.1 PROTHROMBIN TIME-INR (8847) Reviewed date:11/26/2024 12:29:52 PM Interpretation: Performing Lab:CB, [facility] [address], [facility] HospitalQkbfQY[address] Wes Oakley Notes/Report: NON-FASTING; NON-FASTING; NON-FASTING; NON-FASTING; NON-FAST INR 1.4 Reference Range 0.9-1.1 Moderate-intensity Warfarin Therapy 2.0-3.0 Higher-intensity Warfarin Therapy 3.0-4.0 PT 14.7 9.0-11.5 sec For additional information, please refer to http://education.ADOR/faq/FAQ1 04 (This link is being provided for informational/ educational purposes only.) M-Urine Culture Reviewed date:07/18/2024 10:28:10 AM Interpretation: Performing Lab: Notes/Report: CUU ORGANISM 1: Klebsiel la pneumoniae RX JACQUES: R- Resistant S- Susceptible I- Intermediate * Not on [facility] Count >100,000 RX JACQUES: R- Resistant S- Susceptible I- Intermediate * Not on [facility] CUU RX JACQUES: R- Resistant S- Susceptible I- Intermediate * Not on [facility] CUU RX JACQUES: R- Resistant S- Susceptible I- Intermediate * Not on [facility] CUU Klebsiella pneumonia e: REACTION RX JACQUES: R- Resistant S- Susceptible I- Intermediate * Not on [facility] CUU Amikacin <=8 S RX JACQUES: R- Resistant S- Susceptible I- Intermediate * Not on [facility] CUU Ampicillin >16 R RX JACQUES: R- Resistant S- Susceptible I- Intermediate * Not on [facility] CUU Aztreonam <=2 S RX JACQUES: R- Resistant S- Susceptible I- Intermediate * Not on [facility] CUU Cefepime <=1 S RX JACQUES: R- Resistant S- Susceptible I- Intermediate * Not on [facility] CUU Ceftazidime <=2 S RX JACQUES: R- Resistant S- Susceptible I- Intermediate * Not on [facility] CUU Ceftriaxone <=1 S RX JACQUES: R- Resistant S- Susceptible I- Intermediate * Not on [facility] CUU Ciprofloxacin <=0.25 S RX JACQUES: R- Resistant S- Susceptible I- Intermediate * Not on [facility] Ertapenem <=0.25 S RX JACQUES: R- Resistant S- Susceptible I- Intermediate * [facility] Gent[facility]2 S RX JACQUES: R- Resistant S- Susceptible I- Intermediate * Not on [facility] Levofloxacin <=0.5 S RX JACQUES: R- Resistant S- Susceptible I- Intermediate * [facility] Meropenem <=0.5 S RX JACQUES: R- Resistant S- Susceptible I- Intermediate * Not on [facility] Nitrofurantoin 64 I RX JACQUES: R- Resistant S- Susceptible I- Intermediate * Not on [facility] Tetracycline <=2 S RX JACQUES: R- Resistant S- Susceptible I- Intermediate * Not on [facility] Tobramycin <=2 S RX JACQUES: R- Resistant S- Susceptible I- Intermediate * Not on [facility] Trimethoprim/Sulfame tho xazole <=0.5/9.5 S RX JACQUES: R- Resistant S- Susceptible I- Intermediate * Not on [facility] Piperacillin/Tazobac roman 4/4 S RX JACQUES: R- Resistant S- Susceptible I- Intermediate * [facility] RX [facility]ACQUES: R- Resistant S- Susceptible I- Intermediate * Not on [facility] Urinalysis Reviewed date:07/13/2024 04:26:13 PM Interpretation: Performing Lab: Notes/Report: Color/Clarity julianna Leuk small Nitrite neg Urobili 0.2 Protein neg pH 6.0 Blood neg Sp. Gr. >=1.030 Ketone neg Bili neg Glucose neg M-Uric Acid Reviewed date:04/10/2024 08:55:43 AM Interpretation: [...] 80 74-100 mg/dl CA 9.1 8.4-10.2 mg/dl M-Erythrocyte Sedimentation Rate Reviewed date:04/10/2024 08:55:43 AM Interpretation: Performing Lab: Notes/Report: ESR 82 0-30 mm/hr M-Complete Blood Count Auto Diff Reviewed date:04/10/2024 [...] 0.0 0.0-0.4 K/mm3 BA# 0.1 0-0.2 K/mm3 CULTURE, URINE, ROUTINE (395 ) Reviewed date:02/01/2024 07:12:41 PM Interpretation: Performing Lab:KEVIN, [employer] [facility] [address] [facility], Reddy WiseRahvIP[address] Wes Oakley Notes/Report: NON-FASTING CULTURE, URINE, ROUTINE SEE NOTE CULTURE, URINE, ROUTINE Micro Number: [id number] Test Status: Final Specimen Source: Urine Specimen Quality: Adequate Result: Mixed genital leonardo isolated. These superficial bacteria are not indicative of a urinary tract infection. No further organism identification is warranted on this specimen. If clinically indicated, recollect clean-catch, mid-stream urine and transfer immediately to Urine Culture Transport Tube. Urinalysis Reviewed date:01/30/2024 01:26:11 PM Interpretation: Performing Lab: Notes/Report: Color/Clarity julianna Leuk neg Nitrite positive Urobili 0.2 Protein neg pH 5.0 Blood neg Sp. Gr. 1.020 Ketone neg Bili neg Glucose neg Mammogram [...] date:05/17/2024 09:05:04 AM Interpretation: Performing Lab: Notes/Report: M-PHA INR Fingerstick Reviewed date:03/23/2024 02:02:08 PM [...] PREVENTION OF SYSTEMIC EMBOLISM SECONDARY TO AMI M-Complete Blood Count Auto Diff Reviewed date:01/12/2024 [...] 0.3 0.0-0.4 K/mm3 BA# 0.1 0-0.2 K/mm3 M-INR/PT Reviewed date:01/10/2024 01:08:56 PM Interpretation: Performing [...] HDL 54 40-60 mg/dl CHLHDL 4.1 1-3.5 M-PHA INR Fingerstick Reviewed date:05/04/2024 11:52:38 AM [...] Duration) Notes Start Date End Date Status Allopurinol 100 MG TAKE ONE (1) TABLET BY MOUTH ONCE A DAY; Duration: 90 Active Montelukast Sodium 10 MG 1 tab(s) orally once a day; Duration: 30 day(s) Active Flonase Allergy Relief 50 MCG/ACT 2 spray(s) intranasally once a day Active Magnesium 400MG 1 TABLET ONCE A DAY Active Amitriptyline HCl 50 MG 1 tab(s) orally once a day (at bedtime); Duration: 30 days Active Pravastatin Sodium 20 MG 1 tab(s) orally once a day; Duration: 90 days Active rOPINIRole HCl 1 MG TAKE 1-2 TABLET BY M OUTH AT BEDTIME Orally Once a day; Duration: 90 days Active busPIRone HCl 10 MG TAKE 1 TABLET BY OMARI TH TWICE DAILY; Duration: 30 Active DULoxetine HCl 60 MG TAKE ONE (1) CAPSUL E BY MOUTH TWICE DAILY; Duration: 90 Active Omeprazole 40 MG TAKE ONE (1) CAPSULE BY MOUTH ONCE DAILY; Duration: 30 Active Promethazine HCl 25 MG 1 tablet as neede d Orally every 6 hours; Duration: 3 days 12/08/2024 Active Warfarin Sodium 7.5 MG TAKE 1 TABLET BY MOUTH ON TUESDAY, TUESDAY, TUESDAY, TUESDAY, AND TUE. THEN TAKE 1/2 TABLET ONCE DAILY ON TUESDAY AND TUESDAY DIRECTED; Duration: 30 Active Triamcinolone Acetonide 0.1 % 1 application Externally Twice a day; Duration: 7 days 10/23/2024 Active Xyzal Allergy 24HR 5 MG 1 po qd Active amLODIPine Besylate 2.5 MG 1 tab orally once a day Active Ipratropium-Albuterol 0.5-2.5 (3) MG/3ML 3 mL by nebulizer tid prn 07/10/2018 Active Azelastine HCl 137 MCG/SPRAY 2 spray(s) intranasally twice a day Active Vitamin D3 125 MCG (5000 UT) 1 cap(s) orally once a day A ctive Gabapentin 300 MG TAKE 1 CAPSULE BY MO UTH FOUR TIMES DAILY MAY CAUSE DROWSINESS; Duration: 30 11/09/2024 Active Aspirin 81 MG 1 TAB(S) ORALLY ONCE A DAY 6 Active Acetaminophen 500 MG 2 tab(s) orally felicia ry 6 hours Active Minoxidil 10 MG 1 tablet Orally Once a day Active Enoxaparin Sodium 100 MG/ML 95 mg Injection twice a day; Duration: 10 days 11/26/2024 Active Xolair 150 MG as directed subcutan eously every 2 weeks Active PROAIR HFA 90 MCG/INH USE 2 PUFFS EVERY 4 TO 6 HOURS PRNF COUGH/WHEEZE -REFILLS REMAINING >A INHALED 4 TIMES A DAY Active Immunizations Vaccine Route Administration Date Status Comme nts Arexvy IM Intramuscular 11/22/2024 Administered Fluvirin--Influenza vaccine 3+ year Unknown 03/06/2007 Administered Fluvirin--Influenza vaccine 3+ year IM Intramuscular 11/22/2012 Administered FLUZONE 6MO - OLDER IM Intramuscular 10/23/2020 Administer ed Fluzone High Dose IM Intramuscular 11/06/2021 Administered Fluzone High Dose IM Intramuscular 12/02/2022 Administered Fluzone High Dose IM Intramuscular 04/30/2024 Administered Fluzone High Dose IM Intramuscular 11/22/2024 Administered Influenza (Fluzone)--Medicare only IM Intramuscular 11/19/2016 [...] (M10.9) Active confirmed Problem Information temporarily unavailable manager long term care current use of anticoagulant (Z79.01) Active confirmed [...] (M19.042) Active confirmed Vital Signs Heart Rate 96 /min 11/22/2024 Temperature 97.3 degrees Fahrenheit 11/22/2024 Blood pressure diastolic 82 mm Hg 11/22/2024 Height 5 ft 5.75 in in 11/22/2024 Blood pressure systolic 122 mm Hg 11/22/2024 Weight 207.8 lbs 11/22/2024 BMI 33.79 kg/m2 11/22/2024 Encounters Encounter Location Date Provider Diagnosis [facility] [address] [place] [address] 05/12/2024 Provider Migration Mixed dyslipidemia E78.2 [facility] [address] [place] [address] 01/30/2024 Sandra Yoanna Bunion, right foot M21.611 ; Dysuria R30.0 ; Fibromyalgia M79.7 ; Other chronic pain G89.29 ; History of pulmonary embolism Z86.711 ; Essential hypertension I10 and Mixed dyslipidemia E78.2 [facility] [address] [address] 04/04/2024 Sandra Yoanna Pain in left knee M25.562 ; Effusion of left knee M25.462 and Other chronic pain G89.29 [facility] [address] [facility] [address] [place] [address] 04/24/2024 Veronika McNees Acute gout of left knee, unspecified cause M10.9 [facility] [address] [facility] [address] [place] [address] 04/30/2024 Sandra Yoanna Bunion, right foot M21.611 ; Medicare annual [...] ; Major depress, 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 ; manager long term care current use of anticoagulant Z79.01 ; Vitamin D deficiency E55.9 ; Moderate persistent asthma without complication J45.40 and Immunization(s) administered Z23 [facility] [address] [facility] [address] [place], [place] [address] 07/13/2024 Veronika McNees Dysuria R30.0 ; Gout y arthritis M10.9 ; Insect bite (nonvenomous) of scalp, initial encounter S00.06XA and Bitten or stung by nonvenomous insect and other nonvenomous arthropods, initial encounter W57.XXXA [facility] [address] [place], [place] [address] 08/16/2024 Sandra Evansence Fibromyalgia M79.7 ; Gouty arthritis M10.9 ; Other chronic pain G89.29 ; History of pulmonary embolism Z86.711 ; Essential hypertension I10 ; Primary osteoarthritis of both knees M17.0 ; USP current use of anticoagulant Z79.01 and RLS (restless legs syndrome) G25.81 [facility] [address] [facility] [address] [place], [place] [address] 10/23/2024 Sandra Evansence Insect bite (nonvenomous), right lower leg, subsequent encounter S80.861D ; Bitten or stung by nonvenomous insect and other nonvenomous arthropods, subsequent encounter W57.XXXD and Cellulitis of right lower extremity L03.115 [facility] [address] [facility] [address] [place], [place] [address] 10/29/2024 Sandra Yoanna Bitten or stung by nonvenomous insect and other nonvenomous arthropods, subsequent encounter W57.XXXD [facility] [address] [facility] [address] [place], [place] [address] 11/22/2024 Sandra Lenz Gouty arthritis M10. 9 ; History of recurrent deep vein thrombosis (DVT) Z86.718 ; Fibromyalgia M79.7 ; Other chronic pain G89.29 ; History of pulmonary embolism Z86.711 ; Essential hypertension I10 ; Primary osteoarthritis of both knees M17.0 ; USP current use of anticoagulant Z79.01 ; RLS (restless legs syndrome) G25.81 ; Immunization(s) administered Z23 and Hyperlipidemia LDL goal <100 E78.5 [facility] [address] [address] 03/13/2024 Sandra Lenz Anxiety F41.9 [facility] [address] [facility] [address] [place] [address] 04/24/2024 Veronika Kern [facility] [address] [facility] [address] [place] [address] 05/07/2024 Sherif Ridley Visit for screening mammogram Z12.31 and Asymptomatic menopausal state Z78.0 [facility] [address] [address] 07/18/2024 Sherif Besson [facility] [address] [address] 07/30/2024 Sherif Besson [facility] [address] [facility] [address] [place] [address] 11/25/2024 Sandra Evansence [facility] [address] [facility] [address] [place] [address] 12/04/2024 Sandra Evansence [facility] [address] [facility] [address] [place] [address] 12/08/2024 Sandra Lenz Assessments Encounter Date Diagnosis (ICD Code) Assessment Notes Treatment Notes Treatment Clinical Notes Section Notes 01/30/2024 Bunion, right foot (ICD-10 - M21.611) 01/30/2024 Dysuria (ICD-10 - R30.0) 03/13/2024 Anxiety (ICD-10 - F41.9) 04/04/2024 Pain in left knee (ICD-10 - M25.562) 04/04/2024 Effusion of left knee (ICD-10 - M25.462) Continue ice, knee sleeve. _update imaging and labs as noted. Script for topical pain relief cream #2 ([facility]) was sent as well. Will refer to re-establish with orthopedics for known moderate to severe OA of the knee 04/24/2024 Acute gout of left knee, unspecified cause (ICD-10 - M10.9) Likely related to combination of OA and gout. Discussed pathophysiology of gout, avoid cold, discussed varieties of dietary stimuli. Prednisone sent x 5 days. Notified Telyl in [facility] who will call patient tomorrow with recommendations. Compounded cream resent to [facility]. Keep FU with pain management. 04/30/2024 Medicare [...] treatment since she cannot take anti-inflammator ies 11/22/2024 Gouty arthritis (ICD-10 - M10.9) continue allopurinol 10/23/2024 Insect bite (nonvenomous), right lower leg, subsequent encounter (ICD-10 - S80.861D) Rec addition of topical steroid for inflammation if this truly was a spider/insect bite, continue oral antibiotics for an additional week, close FU next week but sooner with any increasing concern. 10/23/2024 Bitten or stung by nonvenomous insect and other nonvenomous arthropods, subsequent encounter (ICD-10 - W57.XXXD) 10/29/2024 Bitten or stung by nonvenomous insect [...] All questions were answered and concerns addressed. 11/22/2024 History of recurrent deep vein thrombosis (DVT) (ICD-10 - Z86.718) continue warfarin. INR today and will review with coumadin clinic and establish schedule to transition to Lovenox for suregery 11/22/2024 Fibromyalgia (ICD-10 - M79.7) continue cymbalta, gabapentin 10/23/2024 Cellulitis of right lower extremity (ICD-10 - L03.115) 05/07/2024 Asymptomatic menopausal state (ICD-10 - Z78.0) [...] 04/04/2024 Other chronic pain (ICD-10 - G89.29) 01/30/2024 Fibromyalgia (ICD-10 - M79.7) continue cymbalta, gabapentin 04/30/2024 Other chronic pain (ICD-10 - G89.29) [facility] DELIA on file. NSAIDS contraindicated due to coumadin use 07/13/2024 Bitten or stung by nonvenomous insect and other nonvenomous arthropods, initial encounter (ICD-10 - W57.XXXA) 08/16/2024 History of pulmonary embolism (ICD-10 - Z86.711) following with [facility] 11/22/2024 Other chronic pain (ICD-10 - G89.29) [facility] DEL[facility] on file. NSAIDS contraindicated due to coumadin use 11/22/2024 History of pulmonary embolism (ICD-10 - Z86.711) following with [facility] 08/16/2024 Essential hypertension (ICD-10 - I10) well controlled on current regimen 04/30/2024 History of pulmonary embolism (ICD-10 - Z86.711) following with [facility] 01/30/2024 Other chronic pain (ICD-10 - G89.29) [facility] on file. NSAIDS contraindicated due to coumadin use 01/30/2024 History of pulmonary embolism (ICD-10 - Z86.711) following with [facility] 04/30/2024 Essential hypertension (ICD-10 - I10) well controlled on current regimen 08/16/2024 Primary osteoarthritis of both knees (ICD-10 - M17.0) continue orthopedic and pain management followup 11/22/2024 Essential hypertension (ICD-10 - I10) well controlled on current regimen 11/22/2024 Primary osteoarthritis of both knees (ICD-10 - M17.0) continue orthopedic and pain management followup. replacement of the left knee is scheduled. 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 current use of anticoagulant (ICD-10 - Z79.01) 05/12/2024 Mixed dyslipidemia (ICD-10 - E78.2) 04/30/2024 Mixed dyslipidemia (ICD-10 - E78.2) Doing well on pravastatin, intolerant to other statins 01/30/2024 Essential hypertension (ICD-10 - I10) well controlled on current regimen 01/30/2024 Mixed dyslipidemia (ICD-10 - E78.2) Did [...] evening meal and 1mg at bedtime 11/22/2024 USP current use of anticoagulant (ICD-10 - Z79.01) complicates all aspects of care, see lab results and plan for Lovenox bridge 11/22/2024 RLS (restless legs syndrome) (ICD-10 - G25.81) continue requip 1mg with evening meal and 1mg at bedtime 04/30/2024 BMI 34.0-34.9,adult (ICD-10 - Z68.34) 04/30/2024 Primary osteoarthritis of both knees (ICD-10 - M17.0) continue orthopedic and pain management followup 11/22/2024 Immunization(s) administered (ICD-10 - Z23) 11/22/2024 Hyperlipidemia LDL goal <100 (ICD-10 - E78.5) continue statin therapy 04/30/2024 Personal history of DVT (deep vein thrombosis) (ICD-10 - Z86.718) continue coumadin, [facility] clinic managing 04/30/2024 Major depress, part remis (ICD-10 - F32.4) continue duloxetine 04/30/2024 USP current use of anticoagulant (ICD-10 - Z79.01) [...] 04/12/2006 N-stool enteric pathogens 04/21/2006 Physical Therapy 06/21/2013 Physical Therapy 09/25/2007 Physical Therapy 06/20/2014 Physical Therapy 04/26/2011 Physical Therapy 02/17/2015 Physical Therapy 12/11/2020 Physical Therapy 04/23/2021 Mammogram : Bilateral 10/12/2012 Mammogram : Bilateral 10/02/2010 Mammogram : Bilateral 10/23/2020 Occupational Therapy : Eval & Treatment 07/04/2020 Galactogram: L breast 09/22/2006 H-CBC with AUTO DIFF 07/02/2014 H-CBC with AUTO DIFF 06/15/2016 H-CBC with AUTO DIFF 03/04/2009 H-CBC with AUTO DIFF 09/22/2015 H-CBC with AUTO DIFF 06/21/2013 H-CBC with AUTO DIFF 10/31/2008 H-VITAMIN B12 10/31/2008 H-VITAMIN B12 06/21/2013 H-PT/INR 03/06/2009 H-PT/INR 03/08/2009 H-PT/INR 03/04/2009 H-PT/INR 03/10/2009 H-ANTITHROMBIN III,ANTIGEN 03/04/2009 H-CMP 09/22/2015 H-CMP 06/15/2016 H-CMP 06/21/2013 H-CMP 10/31/2008 H-CMP 07/02/2014 H-BUN 08/06/2014 H-CREATININE SERUM 08/06/2014 H-LIPID PANEL 09/22/2015 H-LIPID PANEL 06/15/2016 H-LIPID PANEL 06/21/2013 H-LIPID PANEL 07/02/2014 H-PROTEIN C ACTIVITY 03/04/2009 H-PROTEIN S ACTIVITY 03/04/2009 H-TSH 06/21/2013 H-TSH 07/02/2014 H-TSH 07/09/2013 H-FREE T3 07/09/2013 H-FREE T4 07/09/2013 H-VIT D, 25-HYDROXY 06/21/2013 H-SED RATE 10/31/2008 H-SED RATE 08/06/2014 H-RHEUMATOID FACTOR 04/14/2017 H-CLAIRE PROFILE 04/14/2017 H-CLAIRE PROFILE 03/04/2009 H-ANTI CARDIOLIPIN AB IGG 03/04/2009 H-CCCP 04/14/2017 Urine Culture, Routine 02/05/2020 M-Complete Blood Count Auto Diff 020 M-Complete Blood Count Auto Diff 020 M-Complete Blood Count Auto Diff 023 M-Complete Blood Count Auto Diff 024 M-Complete Blood Count Auto Diff 021 M-Complete Blood Count Auto Diff 022 M-Complete Blood Count Auto Diff 024 M-Erythrocyte Sedimentation Rate 022 M-INR/PT 07/03/2020 M-INR/PT 03/05/2021 M-INR/PT 05/31/2022 M-INR/PT 01/22/2020 M-INR/PT 07/10/2019 M-INR/PT 11/01/2023 M-Comprehensive Metabolic Panel 11/01/19 24 M-Comprehensive Metabolic Panel 07/10/19 20 M-Comprehensive Metabolic Panel 01/22/20 M-Comprehensive Metabolic Panel 07/04/19 21 M-Comprehensive Metabolic Panel 03/07/19 24 M-Comprehensive Metabolic Panel 03/05/19 22 M-Comprehensive Metabolic Panel 06/01/19 23 M-Lipid Panel 05/31/2022 M-Lipid Panel 03/07/2023 M-Lipid Panel 11/01/2023 M-Lipid Panel 07/03/2020 M-Lipid Panel 03/05/2021 M-Lipid Panel 07/10/2019 M-Lipid Panel 01/22/2020 M-Vitamin D 25 Hydroxy 01/22/2020 M-Vitamin D 25 Hydroxy 05/31/2022 M-Vitamin D 25 Hydroxy 03/05/2021 M-RA Latex Turbid. 03/05/2021 Physical Therapy Eval and Treat 08/31/19 23 Future Test Test Name Order Date H-CPK 02/21/2008 H-CBC with AUTO DIFF 06/14/2012 H-CMP 06/14/2012 H-LIPID PANEL 06/14/2012 Insurance Providers Payer Name Payer Address Payer Phone Subscriber Number Group Number Insured Name Patient Relationship to Insured Coverage Start Date Coverage End Date [place] [address] [place] [place] [address] [phone] [id number] [employer], [employer]bonie Self - patient is the insured [employer] [address] [address] [place] [phone] [id number] [employer], [employer]bonie Self - patient is the insured [employer] [address] [place] [address] [address] [place] [address] ACL [employer], Ebonie Self - patient [...] DVT COPD Pulmonary embolism and infarction, other Colonoscopy 2022 Chest pain with negative ECHO and lexisc an 06/25 Normal DEXA 2020 asthma Normal mammogram 06/01 Murmur - echo 05/2024 without significant valvular disease Gout Surgical History Surgery Date(Month/Year) Carpel tunnel 1994 Appendectomy 38 yrs ago Hysterectomy 1988 Foot Surgery 5 yrs ago cholecystectomy 2000 Back surgery 2013 Back surgery 07/2015 left hand 2022 Hospitalization History Reason Date(Month/Year) Back surgery 07/2015 Appendectomy and Cholecystectomy/back colon rgery
[2024-12-10 15:58] LABS: PHA INR Fingerstick 3.0 (0.9-1.1)
== END 2024-12-10 15:55 ==
LOC: ACC 13:57
PROVIDERS: PCP Nurse Practitioner Family; Visit Provider Internal Medicine Adolescent Medicine
DX: Z79.01 Long term (current) use of anticoagulants (principal)
CPT/HCPCS: 85610; 99211; G0463

== ENCOUNTER 2024-12-24 12:11 | Outpatient (CLI) | payer MEDICARE, OTHER, SELFPAY ==
[2024-12-24 12:47] LABS: PHA INR Fingerstick 2.3 (0.9-1.1)
== END 2024-12-24 12:50 ==
LOC: ACC 12:12
PROVIDERS: PCP Nurse Practitioner Family; Visit Provider Internal Medicine Adolescent Medicine
DX: Z79.01 Long term (current) use of anticoagulants (principal)
CPT/HCPCS: 85610; 99211; G0463

== ENCOUNTER 2024-12-27 13:02 | Outpatient (RCR) | payer MEDICARE, OTHER, SELFPAY | END 2024-12-27 23:59 | disposition home or self-care (01) | LOC: PT 13:02 | PROVIDERS: PCP Nurse Practitioner Family; Visit Provider Physician Assistant Medical | DX: Z47.1 Aftercare following joint replacement surgery (principal); Z96.652 Presence of left artificial knee joint | CPT/HCPCS: 97162 ==

== ENCOUNTER 2025-01-21 10:00 | Outpatient (RCR) | payer MEDICARE, OTHER, SELFPAY | END 2025-01-21 23:59 | disposition home or self-care (01) | LOC: PT 10:00 | PROVIDERS: PCP Nurse Practitioner Family; Visit Provider Physician Assistant Medical | DX: Z47.1 Aftercare following joint replacement surgery (principal); Z96.652 Presence of left artificial knee joint | CPT/HCPCS: 97016; 97110; 97530 ==

== ENCOUNTER 2025-01-21 11:56 | Outpatient (CLI) | payer MEDICARE, OTHER, SELFPAY ==
[2025-01-21 15:26] LABS: PHA INR Fingerstick 2.3 (0.9-1.1)
== END 2025-01-21 15:41 ==
LOC: ACC 11:57
PROVIDERS: PCP Nurse Practitioner Family; Visit Provider Internal Medicine Adolescent Medicine
DX: Z79.01 Long term (current) use of anticoagulants (principal)
CPT/HCPCS: 85610; 99211; G0463